=== PATIENT | female | born 1935 | race Caucasian/White ===

== ENCOUNTER 2016-04-06 08:45 | Inpatient (IN) | payer MEDICARE ==
--- NOTE | 2016-04-28 20:43 | HP ---
PREOPERATIVE HISTORY AND PHYSICAL: DATE OF ADMISSION/SURGERY: 05/04/16 DATE OF OFFICE VISIT: 04/28/16 ATTENDING SURGEON: Dr. Carla Workman. PROCEDURE: Right total shoulder reverse. CHIEF COMPLAINT: Right shoulder pain. HISTORY OF PRESENT ILLNESS: Ms. Kahn is a 80-year-old female who presents to the clinic for followup of ongoing right shoulder pain due to severe osteoarthritis. She rates her pain as a 5/10. She has failed conservative measures and therefore has agreed to undergo a right total shoulder reverse with Dr. Workman on 05/04/16. The patient had abnormal EKGs, so was sent to Cardio. She has been cleared by Cardiology. She now takes Eliquis for anticoagulation. She has also been cleared by her primary care physician. PAST MEDICAL HISTORY: Atrial tachycardia, high blood pressure, diabetes, GERD, high cholesterol, rheumatoid arthritis, osteoporosis, history of pancreatitis, stroke in 2013. PAST SURGICAL HISTORY: Carotid endarterectomy bilaterally; cholecystectomy; knee replacement; ORIF, left arm. MEDICATIONS: 1. Eliquis 5 mg twice a day. 2. D3 Super Strength 2000 units 1 cap by mouth daily. 3. Simponi Aria 50 mg/4 mL IV infusion, 2 mg/kg week 0 and 4 and continue at 8 weeks thereafter. 4. Gabapentin 100 mg, take 1 capsule by mouth at night 1 week and then 1 by mouth twice daily ongoing. 5. Ambien 5 mg 1 by mouth every night as needed. 6. Aspirin low dose 81 mg daily. 7. Metoprolol succinate 50 mg twice a day. 8. Metformin 500 mg 3 times a day. 9. Percocet 5/325 one at night. 10. Protonix 40 mg 1 daily. 11. Ropinirole HCl 2 mg 1 at night. 12. Amlodipine besylate 10 mg by mouth daily. 13. Folic acid 1 mg 1 by mouth every day. 14. Lisinopril and hydrochlorothiazide 20/25 one by mouth daily. 15. Simvastatin 40 mg 1 by mouth every night a bedtime. 16. Triamterene and hydrochlorothiazide 37.5/25 mg 1 by mouth daily. ALLERGIES: AUGMENTIN, AMOXICILLIN, CONTRAST IODINATED AGENTS, AMENTIA. She has no allergy to oxycodone even though it is listed in the chart. FAMILY HISTORY: Significant for heart disease, diabetes in maternal grandmother , hypertension as well as cancer. SOCIAL HISTORY: She lives with her daughter who is basically her primary ambulatory care coordinator; however, she works also. 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 She denies tobacco or alcohol use. REVIEW OF SYSTEMS: A 14-point review of systems was reviewed with the patient and positive for cough, intermittent diarrhea, and right shoulder pain, otherwise negative. She denies chest pain, shortness of breath, fever, chills, history of DVT or PE. PHYSICAL EXAMINATION GENERAL: Well-developed, well-nourished, 80-year-old female in no acute distress. Alert and oriented x3. Appropriate mood and affect. VITAL SIGNS: Height 61, weight 154 pounds, pulse 96, blood pressure 115/58, respiratory rate 16, BMI 29.1. HEENT: Normocephalic, atraumatic. PERRLA. Throat clear. NECK: Supple. PULMONARY: Lungs are clear to auscultation bilaterally. No wheezing, rhonchi, or rales. CARDIO: Regular rate and rhythm. S1, S2. No murmurs, rubs, or gallops. No edema. ABDOMEN: Positive bowel sounds, soft, and nontender. NEURO: Alert and oriented x3. Cranial nerves are grossly intact. Sensation is intact to light touch. MUSCULOSKELETAL: Right upper extremity, skin is intact. No erythema or warmth. Forward flexion to 80 degrees, abduction to 40 degrees, external rotation to 20 degrees, internal rotation to the posterior hip. Pain with range of motion. Significant weakness to rotator cuff testing with pain. Full flexion and extension of the elbow, wrist, and hand. +2 radial pulses. Sensation is intact to light touch distally. DIAGNOSTIC STUDIES: Multiple view x-rays of the right shoulder reveal evidence of significant osteoarthritis. IMPRESSION: Right shoulder severe osteoarthritis. ASSESSMENT AND PLAN: The patient is scheduled to undergo a right total shoulder reverse with Dr. Workman on 05/04/16. She knows to stop her aspirin 1 week before surgery and her Eliquis 48 hours prior to surgery. Her Eliquis will be restarted postoperatively for anticoagulation per Cardio recommendations. She will return to the clinic 10 to 14 days postop for followup and suture removal. Percocet will be used for postoperative pain management. OLIVIA NETTLES, FATEMEH [id number]/[facility] #: [id number] [facility] CENTERZulma
[2016-05-04] MEDS ORDERED: Buffered Lidocaine 1% SYRIN* 3 ML/SYR SYRINGE INTRADERM ONE (06:00)
[2016-05-06] MEDS ORDERED: Dexamethasone IV* 4 MG/ML 1 ML (4 MG) IV SLOW PU ONE (06:00)
[2016-05-06] MEDS ORDERED: Buffered Lidocaine 1% SYRIN* 3 ML/SYR SYRINGE INTRADERM ONE (06:00)
[2016-05-06] MEDS ORDERED: Famotidine IV* 10 MG/ML 2 ML (20 mg) IV ONE (06:00)
[2016-05-06] MEDS ORDERED: Famotidine IV* 10 MG/ML 2 ML (20 mg) ONE (07:18)
[2016-05-06] MEDS ORDERED: Clindamycin 900 MG IVPREMIX(* 900 MG/50 ML SDV IV ONE (07:18)
[2016-05-06] MEDS ORDERED: Dexamethasone IV* 4 MG/ML 1 ML (4 MG) ONE (07:18)
[2016-05-06 07:28] LABS: Urine Bacteria Absent (Absent); Urine Bilirubin Negative (Negative); Urine Glucose Negative (Negative); Urine Nitrite Negative (Negative)
[2016-05-06] MEDS ORDERED: HYDROmorphone* 1 MG/ML 1 ML SYR ONE ×4 (07:47→10:32)
[2016-05-06] MEDS ORDERED: fentaNYL* 50 MCG/ML 2 ML VIAL (100 MCG VIAL) ONE ×3 (07:47→10:32)
[2016-05-06] MEDS ORDERED: Midazolam* 1 MG/ML 5 ML VIAL (5 MG) ONE (07:48)
[2016-05-06] MEDS ORDERED: Bupivacaine 0.5% W/EPI SDV* 30 ML VIAL ONE (07:50)
[2016-05-06] MEDS ORDERED: Ondansetron INJ* 2 MG/ML VIAL ONE (07:50)
[2016-05-06] MEDS ORDERED: Propofol* 10 MG/ML 20 ML BTL IV PUSH ONE (07:50)
[2016-05-06] MEDS ORDERED: Ketorolac INJ* 30 MG/ML 1 ML VIAL ONE (07:50)
[2016-05-06] MEDS ORDERED: Lidocaine 2% PF* 5 ML VIAL ONE (07:50)
[2016-05-06] MEDS ORDERED: oxyCODONE TAB* 5 MG TAB PO PRN (11:51)
[2016-05-06] MEDS ORDERED: Magnesium Hydroxide LIQ* 30 ML UDC PO PRN (11:51)
[2016-05-06] MEDS ORDERED: diPHENhydraMINE IV* 50 MG/ML 1 ml VIAL (BENADRYL) IV PRN (11:51)
[2016-05-06] MEDS ORDERED: oxyCODONE/Acetamin 5/325 MG* TAB PO PRN ×2 (11:51)
[2016-05-06] MEDS ORDERED: Acetaminophen TAB* 325 MG PO PRN (11:51)
[2016-05-06] MEDS ORDERED: Morphine INJ* 2 MG/ML 1 ML SYRINGE IV PRN (11:51)
[2016-05-06] MEDS ORDERED: Ondansetron INJ* 2 MG/ML VIAL IV PRN ×2 (11:51→11:53)
[2016-05-06] MEDS ORDERED: PROCHLORPERAZINE INJ 5 MG/ML 2 ML VIAL IV PRN (11:53)
[2016-05-06] MEDS ORDERED: DiMENhydriNATE IV* 50 MG/ML VIAL IV PUSH PRN (11:53)
[2016-05-06] MEDS ORDERED: fentaNYL* 50 MCG/ML 2 ML VIAL (100 MCG VIAL) IV PRN (11:53)
[2016-05-06] MEDS ORDERED: HYDROmorphone* 1 MG/ML 1 ML SYR IV PRN (11:53)
[2016-05-06] MEDS ORDERED: GOLIMUMAB 50 MG IV SCH (12:15)
[2016-05-06] MEDS ORDERED: Dextrose 50% Syringe 50 ML* 25 GM/50 ML SYRINGE IV PUSH PRN (12:44)
[2016-05-06] MEDS ORDERED: Methotrexate TAB* 2.5 MG PO SCH (13:00)
--- NOTE | 2016-05-06 13:12 | RAD ---
INDICATION: Status post right shoulder replacement surgery. COMPARISON: Comparison is made with a prior x-ray study of the right shoulder from February 17, 2016. TECHNIQUE: 3 views of the right shoulder were obtained. FINDINGS: The patient is status post total right shoulder replacement surgery with a reversed polarity prosthesis. The bones and prostheses are in normal alignment. There is a small amount of air in the adjacent soft tissues consistent with the patient's recent surgery. There is a surgical drain present. IMPRESSION: STATUS POST TOTAL RIGHT SHOULDER REPLACEMENT SURGERY.
[2016-05-06] MEDS ORDERED: metFORMIN* 500 MG TAB PO SCH (14:00)
[2016-05-06] MEDS: Clindamycin 600 MG IVPREMIX(* 600 MG/50 ML SDV IV SCH ×2 (16:38→23:37)
--- NOTE | 2016-05-06 16:50 | CONS ---
[facility] MEDICINE CONSULTATION REPORT: DATE OF CONSULTATION: 05/06/16 ATTENDING PHYSICIAN: Dr. Workman. CONSULTING PHYSICIAN: Mehran Butler MD (dictation provided by Devi Li NP ). REASON FOR CONSULTATION: Medical comanagement, admitted for right total shoulder reverse. HISTORY OF PRESENT ILLNESS: Ms. Kahn is a 80-year-old female with a past medical history of hypertension, hyperlipidemia, rheumatoid arthritis, CVA, carotid endarterectomy and recent concern for atrial tachycardia who presents today to the hospital for an elective right total shoulder reverse. In brief, Ms. Kahn had failed conservative management and treatment of her shoulder pain and therefore, has opted for surgery today. Prior to going to surgery, Ms. Kahn was evaluated by Dr. Bhardwaj who was concerned that perhaps she had an atrial flutter or tachycardia and had her evaluated preoperatively by Dr. Arreguin from [facility]iology at [place]. Dr. Arreguin did administer adenosine to the patient and based on the fact that patient seemed to slow down to a sinus rhythm, he suspected that she did not have atrial flutter. She was put on Eliquis out of concern for this rhythm and at stroke risk. According to the patient today, she was taken off Eliquis presumably because Dr. Arreguin had determined and felt comfortable that she was not actually in atrial tachycardia. I do not have a note to corroborate this in the chart, however. Other than this, Ms. Kahn states that she has been feeling well and had no acute complaints prior to coming in for surgery. PAST MEDICAL HISTORY: 1. Atrial tachycardia, appears that atrial flutter was ruled out. 2. Hypertension. 3. Type 2 diabetes, non-insulin dependent. 4. GERD. 5. Hyperlipidemia. 6. Rheumatoid arthritis. 7. Osteoarthritis. 8. History of CVA. 9. History of carotid endarterectomy. 10. History of pancreatitis. 11. History of cholecystectomy. 12. History of knee replacement. 13. ORIF, left arm. MEDICATIONS: 1. Eliquis 5 mg p.o. twice daily (the patient tells me today that this had been discontinued). 2. Vitamin D3, 2000 units daily. 3. Simponi Aria 50 mg/4 mL IV infusion as directed. 4. Gabapentin 100 mg twice daily. 5. Ambien 5 mg q.p.m. as needed. 6. Aspirin 81 mg daily. 7. Metoprolol succinate 50 mg twice a day. 8. Metformin 500 mg t.i.d. 9. Percocet 5/325 mg 1 tablet at night. 10. Protonix 40 mg p.o. daily. 11. Ropinirole 2 mg at bedtime. 12. Amlodipine 10 mg daily. 13. Folic acid 1 mg daily. 14. Lisinopril and hydrochlorothiazide 20/25 daily. 15. Simvastatin 40 mg at nighttime. 16. Triamterene/hydrochlorothiazide 37.5/25 mg 1 tab daily. 17. Methotrexate 2.5 mg p.o. weekly. ALLERGIES: To AUGMENTIN, CONTRAST IODINATED AGENTS, and OCYCODONE. FAMILY HISTORY: Significant for heart disease and diabetes in maternal grandmother, hypertension, as well as cancer. SOCIAL HISTORY: The patient lives with her daughter and states that she would be her healthcare proxy. There is no report of alcohol, tobacco, or drug use. REVIEW OF SYSTEMS: A 14-point review of systems was completed with Ms. Kahn. Again, all those not mentioned above were negative. PHYSICAL EXAMINATION: Vital Signs: Temperature 97.2, pulse rate 65, respiratory rate 16, O2 saturation 99% on 3 L nasal cannula, blood pressure 133/ 72. General: Ms. Kahn is examined in the PACU. She is in no acute distress. Neuro: She is alert. She is oriented x3. She moves all extremities equally. There is no facial asymmetry or focal weakness. Extraocular movements are intact. Heart: S1, S2. No murmur, rub, gallop, and regular. Lungs are clear to auscultation bilaterally with no accessory muscle use and good aeration. Abdomen: Soft, nontender. Bowel sounds positive x4. Extremities: No cyanosis or edema. Skin is intact. DIAGNOSTIC STUDIES/LAB DATA: Preoperatively, on 04/28/16, WBC 7.8, hemoglobin 10.7, hematocrit 32, and platelet count 263. Chemistries show sodium 129, potassium 4.8, chloride 100, serum bicarbonate 25, BUN 32, creatinine 1.15, glucose 98. ASSESSMENT: Ms. Kahn is a 80-year-old female with past medical history of atrial tachycardia, hypertension, hyperlipidemia, and rheumatoid arthritis, as well as carotid endarterectomy and cerebrovascular accident, who presents today to the hospital after plan for right total shoulder reverse. Hospital Medicine has been consulted regarding medical comanagement. Our plan is as follows: 1. Postop day 0, status post right total shoulder reverse. Management will be per Dr. Workman. The patient will have pain medications p.r.n. with a bowel regimen. She will be on physical and occupational therapy. Her H and H will be monitored. 2. Type 2 diabetes. Plan to hold metformin. The patient will have blood glucoses q. meal with lispro sliding scale insulin. The patient is on a consistent carbohydrate diet. 3. Hypertension. The patient is on lisinopril/hydrochlorothiazide, also triamterene/hydrochlorothiazide and amlodipine at home as well as metoprolol. My plan is to hold the lisinopril/hydrochlorothiazide and triamterene/ hydrochlorothiazide until we can verify that the patient's blood pressure is stable and that she is well hydrated out of concern for acute kidney injury. We will continue her metoprolol and amlodipine. 4. DVT prophylaxis with heparin subcu. 6. Code status is full code. TIME SPENT: Approximately 60 minutes were spent on the consultation of this patient, more than half the time was spent with her at the bedside, reviewing the events leading up to this hospitalization, performing the physical examination, and reviewing [place] [id number]/[facility] #: [id number] JONES
[2016-05-06] MEDS ORDERED: Atorvastatin* 20 MG TAB PO SCH (18:00)
[2016-05-06] MEDS: Insulin LISPRO* 1 UNITS UNIT SUBCUT SCH (18:03)
[2016-05-06] MEDS: Gabapentin CAP(*) 100 MG PO SCH (20:12)
[2016-05-06] MEDS: Metoprolol Tartrate TAB* 50 mg PO SCH (20:13)
[2016-05-06] MEDS ORDERED: Benzocaine/Menthol LOZ* 1 LOZENGE PO PRN (20:21)
--- NOTE | 2016-05-07 05:50 | OP ---
CC: PCP OPERATIVE REPORT: DATE OF OPERATION: 05/06/16 DATE OF : 39 ATTENDING SURGEON: Carla Workman MD ASSISTANTS: 1. FATEMEH Saldaña 2. FATEMEH Ribeiro student ANESTHESIOLOGIST: Felix Travis MD ANESTHESIA: General interscalene block. PRE-OP DIAGNOSIS: Right shoulder rotator cuff arthropathy. POST-OP DIAGNOSIS: Right shoulder rotator cuff arthropathy. OPERATIVE PROCEDURE: Right shoulder open biceps tenodesis and reverse shoulder arthroplasty. ESTIMATED BLOOD LOSS: 200 cc. COMPLICATIONS: None. OUTPUTS AND DRAINS: x1. IMPLANTS: Aequalis Ascend Flex size 4B stem with a centered reversed tray and a 6- mm insert, Aequalis Reversed II centered glenosphere 36 mm with a 25 x 30 mm threaded base plate and the appropriate length screws. INDICATIONS: Romina Kahn is a 80-year-old female who has had persistent shoulder pain for several months. She has failed conservative management. 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 She had persistent pain and significant disability. After extensive discussion discussing risks and benefits of a few operative and nonoperative treatments, she has elected to proceed with operative treatment. After obtaining the appropriate clearance, she was medically optimized for surgery. Risks and benefits were discussed at length including, but are not limited to bleeding, infection, damage to nerves, vessels, surrounding structures, wound nonhealing, persistent pain, need for further surgery, fracture, failure, dislocation, persistent pain, incomplete relief of symptoms, risk of anesthesia, and risk of DVT. She has elected to proceed. DESCRIPTION OF PROCEDURE: The patient was greeted in the preoperative area by the attending surgeon. The correct extremity was marked, consent was confirmed. The patient then underwent interscalene block in the preoperative area, which she tolerated without difficulty. The patient was then brought back to the operating suite, where she was placed in the supine position on the operating table. She then underwent general anesthesia with LMA intubation after which, a Weller catheter was placed. She was then positioned in the lazy beach chair position. The right arm was then prepped and draped in the usual sterile fashion with chlorhexidine soap and alcohol wipe and a final prep with ChloraPrep. After appropriate surgical pause indicating site, side, procedure, and administration of antibiotics, the deltopectoral incision was made sharply with a 15 blade. The soft tissues were carefully dissected to expose the deltopectoral interval and the cephalic vein. The vein in the deltoid was taken laterally. The pec was retracted medially. This exposed the anterior aspect of the shoulder, which had abundant bursa that was present. The bursa was removed from the anterior aspect of the shoulder because the head was superiorly migrated, the pec was easily identified. The proximal 1 cm was released with electrocautery device. The biceps was then tenodesed with a heavy nonabsorbable suture. The biceps was then sharply tenotomized proximal to that. This was tracked proximally into the joint and excess bursa was removed. As this was done, the three sisters, the circumflex humeral artery and veins were identified and suture ligated with a 2-0 Vicryl and then electrocautery. The anterior aspect of the subscap was identified and the borders were identified. The subscap was then peeled back and released in its entirety and stay suture was placed to help with traction and the shoulder was dislocated. There was an obvious massive full-thickness tear of the supraspinatus tendon. The posterior cuff was still intact. There were grade 3 to 4 changes of the humeral head and a large inferior spur that was identified. As the head was mobilized, the latissimus insertion was identified and osteotome was used to remove the large inferior spur and to help develop the neck. Once the head was completely delivered through the wound, the cuff was outlined and then made with the sagittal saw. This was found to be a good cut. It was free-handed. The bone quality was quite poor. The excess bone and debris were removed. Any remaining osteophyte was then carefully removed. The canal was then found with the canal finder. The sounding devices were used to sound for size 4. The broaches were placed beginning with the starting broach and then carefully increased in 6 sessions. This was all set with about 20 degrees of retroversion. The final broach was found to be about 4B, which had excellent purchase. At this point, this was co-planed to allow for any unleveled bony surfaces. After this was done, the protection plate was placed and the attention was directed to the glenoid. The posterior retractor and the Hohmann were in place. This exposed the glenoid , which had grade 4 changes and osteophytes superiorly, anteriorly, and inferiorly. The subscap was attempted to mobilize by sequentially cutting through the superior glenohumeral, the middle glenohumeral ligament. The inferior glenohumeral ligament was excised with great care to protect the vessels and to stay on the undersurface of the subscapularis. This allowed for mobilization of the cuff. Once this was done, the subscap was tucked back into the subscap fossa and a neck retractor was used to expose the glenoid fully. The biceps stump, superior labrum, anterior labrum were then incised using the Bovie to about the 5 o'clock position. At this point, the Bovie was changed to a needle-tip Bovie and with great care and gentle traction on the inferior soft tissues, using a Ahuja, the 5 o'clock to 7 o'clock position was then carefully exposed again sticking onto the bone and with gentle retraction of the soft tissues to prevent any nerve injury. Once the entire glenoid was exposed, the drill guide was then placed with 0 offset. It was drilled with good purchase through the bone. This was then reamed over with 25 mm reamer and then hand reamed to 36 mm. The care was taken not to take away too much bone. At this point, the size 8 mm cannulated drill bit was used to drill, then the size 6.5 mm drill bit was used. The depth was found to be about 25 mm and therefore, a size 30-mm base plate was chosen. The screw hole was tapped and then the glenoid base plate was screwed in position with excellent purchase. The 4 interlocking screws were then drilled and filled at the appropriate length. After this was complete, the glenosphere was brought to the table and impacted into position and then the set screw was used to reinforce and lock it in. Once this was complete, attention was directed to the humerus again. The humerus was then delivered again through the wound. Appropriate retractors were placed. The protection plate was removed and the stem was checked. It was found to be somewhat loose; therefore, the stem was removed. A size 3 and then a size 4 were then impacted again into position with excellent purchase. This was co- planed once more and the trialed tray and poly were then positioned and the shoulder was then reduced. This allowed for appropriate amount of shuck, good range of motion, forward flexion about 150, external rotation to about 60 degrees, and abduction to about 90 degrees with appropriate tension on the deltoid as well as the subscap. The implants were chosen. The shoulder was gently dislocated again. The implants were removed en kristian and then prepared on the back table by the attending surgeon. Three drill holes were made into the humerus to allow for the subscap repair. #5 Ethibond sutures were placed through each superior middle and inferior. The final components were chosen and impacted and prepared by the attending surgeon. This was then brought back to the wound and impacted into position with good fit. The shoulder was then reduced and taken through range of motion , which was the same. The wound was copiously irrigated with sterile saline. Then, the #5 Ethibond sutures that were previously passed were passed through the subscapularis for closure and tied down with a secure fit. The wound was irrigated again. At this point, a large Hemovac drain was then placed. The wound was irrigated yet again and the deltopectoral interval was closed with #2 Ti-Cron suture for later identification in case she needs another surgery and the the skin was closed in layers with 2-0 Vicryl and 3-0 Monocryl. Sterile dressings were applied. She was placed in a regular sling along with a Cryo/ Cuff. She was awoken from anesthesia and transferred to the PACU in stable condition. POSTOPERATIVE PLAN: She will be nonweightbearing. She will have no active range of motion of the shoulder for 6 weeks. She will be allowed to work on active elbow, hand, and wrist range of motion as well as pendulum. She will be allowed to start passive physical therapy tomorrow with passive range of motion , forward flexion at 90, abduction at 90, external rotation to about 45 degrees. The drain will be pulled on postop day 1. She will likely be discharged tomorrow on postop day 1 after obtaining 24 hours of antibiotics. She will be on DVT prophylaxis while inhouse, but discharged on none. She will be discharged on pain medication. I will see the patient back in 10 to 14 days. [id number]/[facility] #: [id number] JONES
[2016-05-07 07:05] LABS: Hematocrit 28 % (35-47); Hemoglobin 9.5 g/dl (12.0-16.0)
[2016-05-07 07:20] LABS: BUN/Creatinine Ratio 22.7 (8-20); Calcium 8.9 mg/dL (8.6-10.3); EGFR African American 61.8 (>60); Potassium 4.3 mmol/L (3.5-5.0)
[2016-05-07 07:53] VITALS: BP 139/72
[2016-05-07] MEDS ORDERED: Enoxaparin(*) 30 MG/0.3 ML SYR SUBCUT SCH (08:00)
[2016-05-07] MEDS: Metoprolol Tartrate TAB* 50 mg PO SCH (08:06)
[2016-05-07] MEDS: Clindamycin 600 MG IVPREMIX(* 600 MG/50 ML SDV IV SCH (08:07)
[2016-05-07] MEDS: Gabapentin CAP(*) 100 MG PO SCH (08:07)
[2016-05-07] MEDS: Insulin LISPRO* 1 UNITS UNIT SUBCUT SCH (08:59)
[2016-05-07] MEDS ORDERED: Omeprazole CAP* 20 MG PO SCH (09:00)
[2016-05-07] MEDS ORDERED: Triamterene/HCTZ 37.5-25 MG* CAP PO SCH (09:00)
[2016-05-07] MEDS ORDERED: Lisinopril/HCTZ 20/25(NF) TAB PO SCH (09:00)
[2016-05-07] MEDS ORDERED: amLODIPine TAB* 5 MG PO SCH (09:00)
--- NOTE | 2016-05-07 11:28 | PN ---
Progress Note - Progress Note SOAP: Subjective: [Pt was seen this morning sitting up in bed. She states she is ready to go home. Pt states that pain is manageable. She denies any numbness or tingling of right extremity. ] Objective: [General: Pt is alert, awake and oriented. No acute distress. MSK: RUE> Pt has some slight redness around the incision. Incision is covered with steri strips. Gauze and tegaderm was replaced today. Drain was pulled today. Radial pulse is 2+ in affected arm. ] Vital Signs Temp 97.7 F 05/07/16 07:16 Pulse 107 05/07/16 07:16 Resp 18 05/07/16 10:07 BP 139/72 05/07/16 07:16 Pulse Ox 99 05/07/16 09:53 Intake & Output 05/06/16 05/07/16 05/07/16 18:59 06:59 18:59 Intake Total 3875 1756 120 Output Total 450 1150 15 Balance 3425 606 105 Weight 160 lb Intake: IV Fluids 2650 966 CLINDAMYCIN 900 MG 50 LR 966 lr 2600 IVPB 55 Clindamycin 55 Oral 1170 790 120 Output: Hemovac Amount #1 100 15 Urine 200 Weller 150 950 Estimated Blood Loss 200 Other: Estimated Void Medium # Voids 1 Assessment: [S/P R total reverse shoulder arthroplasty ] Plan: [Pt will be discharged today Pt will continue oxycodone at home Pt will continue plavix starting tomorrow morning Pt will continue exercises Pt will follow up in 10 to 14 days to have sutures removed.
== END 2016-05-07 12:00 | disposition home or self-care (01) | DRG 483 ==
LOC: AA 05-06 07:08 → SSU 05-06 11:51
PROVIDERS: ADMIT Orthopaedic Surgery; ATTEND Orthopaedic Surgery
PROC: 0RRJ00Z Replacement of Right Shoulder Joint with Reverse Ball and Socket Synthetic Substitute, Open Approach (ICD-10-PCS; principal; 2016-05-06 08:45)
DX: M19.011 Primary osteoarthritis, right shoulder (principal); I44.7 Left bundle-branch block, unspecified; E11.9 Type 2 diabetes mellitus without complications; I10 Essential (primary) hypertension; M06.9 Rheumatoid arthritis, unspecified; K21.9 Gastro-esophageal reflux disease without esophagitis; Z79.84 Long term (current) use of oral hypoglycemic drugs; Z79.82 Long term (current) use of aspirin; Z88.5 Allergy status to narcotic agent; Z88.0 Allergy status to penicillin; Z91.041 Radiographic dye allergy status; Z82.49 Family history of ischemic heart disease and other diseases of the circulatory system; Z83.3 Family history of diabetes mellitus; Z86.73 Personal history of transient ischemic attack (TIA), and cerebral infarction without residual deficits; Z79.02 Long term (current) use of antithrombotics/antiplatelets; Z79.01 Long term (current) use of anticoagulants
CPT/HCPCS: 36415; 80048; 81003; 81015; 85014; 85018; 87070; 87073; 87077; 87086; 87205; 94760; A9270-GY; J1100; J1170; J1650; J1885; J2250; J2405; J2704; J3010

== ENCOUNTER 2017-06-20 04:35 | Inpatient (IN) | payer MEDICARE ==
[2017-06-20] MEDS ORDERED: Adenosine* 3 MG/ML VIAL ONE (04:40)
[2017-06-20] MEDS ORDERED: methylPREDNISolone 125 MG* 2 ML VIAL IV ONE ×2 (04:43→10:24)
[2017-06-20] MEDS ORDERED: Albuterol/Ipratropium NEB.SOL* Albuterol 2.5 MG/Ipratropium 0.5 MG 3 ML INH ONE (04:43)
[2017-06-20] MEDS ORDERED: Diltiazem DRIP* 100 MG/100 ML ADDV.BAG IVPB ONE (04:45)
[2017-06-20] MEDS: Diltiazem IV* 5 MG/ML 5 ML VIAL (for loading dose/IV Push) (25 MG) IV PUSH ONE ×2 (04:55→05:27)
[2017-06-20] MEDS ORDERED: Furosemide IV* 10 MG/ML VIAL (40 MG) IV ONE ×2 (05:21→06:41)
--- OUTSIDE RECORDS SUMMARY | 2017-06-20 05:34 | XMS REPORT ---
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 Active Onset: 07/21/2015 Carpal tunnel syndrome Jody Godoy M.D. 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 Family History Date Family Member(s) Problem(s) Comments General Heart Disease General Diabetes General Cancer Mother grand mother had arthritis Social History Type Date Description Comments Lives With Daughter Occupation Retired ETOH Use Denies alcohol use Smoking Patient has never smoked Exercise Type/Frequency Does not exercise Allergies, Adverse Reactions, Alerts Date Description Reaction Status Severity Comments 12/23/2013 Oxycodone active 04/20/2015 Augmentin active 04/20/2015 Amoxicillin active 04/20/2015 Contrast Iodianted Agents active 04/20/2015 Amentia active 06/30/2016 Remicade active hives Medications Medication Date Status Form Strength Qnty SIG Indications Ordering Provider Prolia Active Solution 60mg/ml 60mg 60 mg M81.0 Zsofia 018 sc Kuldip, q6mon HOME AGENT Iron Active Tablets 325(65Fe) 90tabs 1 by Zsofia 017 mg mouth Kuldip, every HOME AGENT day Vitamin D3 Active Capsules 5000Unit 90caps 1 by Zsofia Ultra Strength 017 mouth Kuldip, every HOME AGENT day Methotrexate Active Tablets 2.5mg 60tabs 5 tbs M05.79 Zsofia 017 by Kuldip, mouth HOME AGENT every week Z79.899 Folic Acid 07/15/2016 Active Tablets 1mg 90tabs 1 by mouth Z79.899 Zsofia every day Kuldip, HOME AGENT Calcium 500 +D 07/15/2016 Active Tablets 500-400mg 180tabs 1 by mouth M81.0 Zsofia -Unit twice a Kuldip, day HOME AGENT Ambien Active 5mg 1 po qhs Unknown prn Aspirin Ec Active 81mg Unknown Lo-Dose Metoprolol Active 50mg bid Unknown Succinate ER Metformin HCL Active 500mg once tab Unknown daily Protonix Active 40mg 1/day Unknown Ropinirole HCL Active 2mg 1 at hs Unknown Amlodipine Active 10mg qd Unknown Besylate Simvastatin Active Tablets 40mg 1 by mouth Unknown every night at bedtime Triamterene/Hy Active Tablets 37.5-25mg 1 by mouth Unknown drochlorothiaz every day annika Vitamin D-3 Active Capsules Unknown 1 by mouth Unknown every day OTC Lisinopril-Hyd Active Tablets 20-25mg 1 by mouth Unknown rochlorothiazi every day de Cipro 02/24/2017 - Hx Tablets 250mg 10tabs 1 tab po R30.0 Zsofia 06/09/2017 twice Kuldip, daily for HOME AGENT 5 days. May stop after 3 days if symptoms resolved. Pyridium 02/24/2017 - Hx Tablets 200mg 1tabs 1 as R30.0 Zsofia 02/24/2017 needed Kuldip, every 6 HOME AGENT hours Bactrim DS 02/24/2017 - Hx 800-160mg 6units 1 tab po R30.0 Zsofia 02/24/2017 bid Kuldip, HOME AGENT Macrodantin 02/24/2017 - Hx Capsules 25mg 10caps 1 po qid R30.0 Zsofia 02/24/2017 Kuldip, HOME AGENT Vitamin D3 08/15/2016 - Hx Capsules 5000Unit 90caps 1 by mouth Zsofia Ultra Strength 11/17/2016 every day Kuldip, HOME AGENT Methotrexate 07/15/2016 - Hx Tablets 2.5mg 72tabs 6 tbs by M05.79 Zsofia 08/12/2016 mouth Kuldip, every week HOME AGENT Z79.899 Oxycodone HCL 05/07/2016 - Hx Capsules 5mg 60caps take 1 - 2 Zaneb 05/28/2016 every 4 - 6 MD Jacinta hours as needed for pain. D3 Super 03/02/2016 - Hx Capsules 2000Uni 90caps take one Marvin Strength 11/17/2016 t capsule/tablet Marky, daily by mouth M.D. Celebrex 02/17/2016 - Hx Capsules 100mg 60caps 1 tab by mouth M19. Adriel F 03/02/2016 twice a day as 011 MD Krystal needed Remicade 01/06/2016 - Hx Solution Rec 100mg Marvin 02/16/2016 Cuca Negro Simponi Aria 07/24/2015 - Hx Solution 50mg/4M QS iv infusion: 2 M05. Zsofia 07/15/2016 L mg/kg repeat 79 KEILA Christiansen at weeks 0 and 4 weeks and continue every 8 weeks thereafter On Hold Z79.899 Gabapentin 05/15/2015 - Hx Capsules 100mg 60caps take 1 Marvin 06/09/2017 capsule by Marky, mouth at M.D. night for 1 week then 1 by mouth twice daily ongoing Prednisone 05/05/2015 - Hx Tablets 10mg 90tabs Please take 05/20/2015 4 tabs Marky, daily for 4 M.D. days then 3 tabs daily for 4 days then 2 tabs daily for 4 days then 1 tab daily ongoing Nabumetone 04/29/2015 - Hx Tablets 500mg 30tabs take one 05/05/2015 capsule/tab Marky, let by M.D. mouth twice daily as needed for pain, please stop other nsaids Ergocalciferol 04/27/2015 - Hx Capsules [id number] 14caps take 1 01/06/2016 capsule by Marky, mouth once M.D. weekly Tramadol HCL 02/03/2014 - Hx Tablets 50mg 50tabs 1 by mouth Chester Rainey , 02/16/2016 four times M.D. a day as [place] [address] Unknown 04/16/2014 Metanx - Hx 1/day Unknown 01/06/2016 Percocet - Hx 5-325 1 at hs Unknown 05/28/2016 Zocor - Hx 20mg 1/day Unknown 04/20/2015 Lisinopril - Hx 25 1/day Unknown 02/16/2016 Vitamin B 12 - Hx 2500 Unknown 03/02/2016 units/day Vitamin D-1000 - Hx Unknown Maximum Strength 04/20/2015 Folic Acid - Hx Tablets 1mg 90tabs 1 by mouth 08/12/2016 every day Cuca Negro Lisinopril-Hydrochl - Hx Tablets 20-25mg 1 by mouth Unknown orothiazide 09/28/2016 every day Methotrexate - Hx Tablets 2.5mg 60tabs take 5 03/02/2016 capsules/ta Marky blets once M.D. weekly by mouth Prednisone - Hx Tablets 20mg 20mg daily Unknown 05/05/2015 Vitamin D3 - Hx Tablets 2000Unit 1 by mouth Unknown 03/02/2016 every day Eliquis - Hx Unknown 09/28/2016 Medications Administered in Office Medication Date Status Form Strength Qnty SIG Indications Ordering Provider David Administered Injection Zsofia Injection, 018 Kuldip, HOME AGENT Denosumab, 1MG Depomedrol Administered Injection Adriel F 40MG 016 MD Krystal Proljuve Administered Injection Marvin Injection, 016 Marky, Denosumab, 1MG MNikolas Prolia Administered Injection Nurse Visit Injection, 016 RH Denosumab, 1MG Immunizations CPT Code Status Date Vaccine Lot # [id number] Given 01/06/2016 Influenza Virus Vaccine, Quadrivalent, Split [id number] Virus, Im Use [id number] Given 10/03/2014 Pneumococcal Conjugate Vaccine 13 Valent For Intramuscular Use 21071 Given Unknown Pneumonia Vaccine Vital Signs Date Vital Result Comment 06/09/2017 Height 60.5 inches 5'0.50" BP Systolic 142 mmHg BP Diastolic 68 mmHg Pain Level 5 O2 % BldC Oximetry 98 % 02/24/2017 Height 60.5 inches 5'0.50" Weight 156.00 lb Heart Rate 60 /min BP Systolic Sitting 150 mmHg BP Diastolic Sitting 64 mmHg Respiratory Rate 14 /min Pain Level 3 BMI (Body Mass Index) 30.0 kg/m2 12/06/2016 Height 60.5 inches 5'0.50" Weight 159.00 lb BP Systolic 118 mmHg BP Diastolic 64 mmHg Respiratory Rate 16 /min Pain Level 2 BMI (Body Mass Index) 30.5 kg/m2 11/18/2016 Weight 159.25 lb Heart Rate 64 /min BP Systolic Sitting 166 mmHg BP Diastolic Sitting 64 mmHg Body Temperature 98.3 F Pain Level 0 O2 % BldC Oximetry 98 % 09/29/2016 Height 60.5 inches 5'0.50" Weight 159.00 lb Heart Rate 60 /min BP Systolic Sitting 125 mmHg BP Diastolic Sitting 75 mmHg Body Temperature 97.7 F Pain Level 0 BMI (Body Mass Index) 30.5 kg/m2 08/12/2016 Height 61 inches 5'1" Heart Rate 72 /min BP Systolic Sitting 144 mmHg BP Diastolic Sitting 90 mmHg Respiratory Rate 14 /min Pain Level 2 07/29/2016 Height 61 inches 5'1" Weight 155.00 lb Respiratory Rate 15 /min Body Temperature 98.4 F Pain Level 2 BMI (Body Mass Index) 29.3 kg/m2 07/15/2016 Height 61 inches 5'1" Weight 155.00 lb Heart Rate 100 /min BP Systolic Sitting 138 mmHg BP Diastolic Sitting 90 mmHg Respiratory Rate 14 /min Pain Level 4 BMI (Body Mass Index) 29.3 kg/m2 06/17/2016 Height 61 inches 5'1" Weight 154.00 lb BP Systolic 120 mmHg BP Diastolic 68 mmHg Respiratory Rate 17 /min Body Temperature 98.1 F Pain Level 4 BMI (Body Mass Index) 29.1 kg/m2 05/17/2016 Height 61 inches 5'1" Weight 154.00 lb Heart Rate 60 /min BP Systolic Sitting 142 mmHg BP Diastolic Sitting 82 mmHg Respiratory Rate 16 /min Body Temperature 97.3 F Pain Level 2 BMI (Body Mass Index) 29.1 kg/m2 04/28/2016 Height 61 inches 5'1" Weight 154.00 lb Heart Rate 96 /min BP Systolic 115 mmHg BP Diastolic 58 mmHg Respiratory Rate 16 /min Pain Level 5 BMI (Body Mass Index) 29.1 kg/m2 03/29/2016 Height 61 inches 5'1" Weight 154.00 lb Heart Rate 61 /min BP Systolic 146 mmHg BP Diastolic 61 mmHg Respiratory Rate 18 /min Pain Level 5 BMI (Body Mass Index) 29.1 kg/m2 03/08/2016 Height 61 inches 5'1" Weight 154.00 lb BP Systolic Sitting 114 mmHg BP Diastolic Sitting 64 mmHg Respiratory Rate 16 /min Pain Level 5 BMI (Body Mass Index) 29.1 kg/m2 03/02/2016 Height 61 inches 5'1" Weight 154.00 lb Heart Rate 78 /min BP Systolic Sitting 140 mmHg BP Diastolic Sitting 60 mmHg Body Temperature 98.0 F Pain Level 5 BMI (Body Mass Index) 29.1 kg/m2 02/17/2016 Height 61 inches 5'1" Weight 160.00 lb Heart Rate 86 /min BP Systolic Sitting 132 mmHg BP Diastolic Sitting 72 mmHg Respiratory Rate 18 /min Pain Level 5 BMI (Body Mass Index) 30.2 kg/m2 01/06/2016 Height 61 inches 5'1" Weight 160.00 lb Heart Rate 64 /min BP Systolic Sitting 110 mmHg BP Diastolic Sitting 60 mmHg Respiratory Rate 14 /min Body Temperature 97.9 F Pain Level 6 BMI (Body Mass Index) 30.2 kg/m2 10/01/2015 Height 61 inches 5'1" Weight 158.00 lb Heart Rate 60 /min BP Systolic Sitting 114 mmHg BP Diastolic Sitting 64 mmHg Respiratory Rate 14 /min Body Temperature 99.4 F Pain Level 6 BMI (Body Mass Index) 29.9 kg/m2 08/25/2015 Height 61 inches 5'1" Weight 160.00 lb Heart Rate 60 /min BP Systolic Sitting 116 mmHg BP Diastolic Sitting 48 mmHg Respiratory Rate 16 /min BMI (Body Mass Index) 30.2 kg/m2 07/28/2015 Height 61 inches 5'1" Weight 161.31 lb Heart Rate 64 /min BP Systolic Sitting 120 mmHg BP Diastolic Sitting 58 mmHg Respiratory Rate 4 /min Body Temperature 98.6 F BMI (Body Mass Index) 30.5 kg/m2 07/21/2015 Height 61 inches 5'1" Weight 160.00 lb Heart Rate 60 /min BP Systolic Sitting 126 mmHg BP Diastolic Sitting 64 mmHg Respiratory Rate 16 /min Pain Level 5 BMI (Body Mass Index) 30.2 kg/m2 05/20/2015 Height 61 inches 5'1" Weight 160.00 lb Heart Rate 76 /min BP Systolic Sitting 146 mmHg BP Diastolic Sitting 70 mmHg Pain Level 8 BMI (Body Mass Index) 30.2 kg/m2 04/20/2015 Height 61 inches 5'1" Weight 169.12 lb Heart Rate 64 /min BP Systolic Sitting 122 mmHg BP Diastolic Sitting 50 mmHg Respiratory Rate 14 /min Pain Level 5 BMI (Body Mass Index) 32.0 kg/m2 09/01/2014 Height 61 inches 5'1" Weight 165.00 lb Pain Level 3 BMI (Body Mass Index) 31.2 kg/m2 05/21/2014 Height 61 inches 5'1" Heart Rate 70 /min Body Temperature 98.2 F Pain Level 2 04/17/2014 Height 61 inches 5'1" Heart Rate 70 /min BP Systolic 177 mmHg BP Diastolic 68 mmHg 04/02/2014 Height 61 inches 5'1" Weight 165.00 lb Body Temperature 97.6 F BMI (Body Mass Index) 31.2 kg/m2 03/26/2014 Height 61 inches 5'1" Weight 165.00 lb Body Temperature 97.9 F Pain Level 4 BMI (Body Mass Index) 31.2 kg/m2 03/17/2014 Height 61 inches 5'1" Weight 162.00 lb Heart Rate 100 /min BP Systolic 150 mmHg BP Diastolic 80 mmHg BMI (Body Mass Index) 30.6 kg/m2 03/05/2014 Height 61 inches 5'1" Weight 173.00 lb BP Systolic 186 mmHg BP Diastolic 97 mmHg BMI (Body Mass Index) 32.7 kg/m2 02/03/2014 Height 61 inches 5'1" Weight 173.00 lb Heart Rate 79 /min BP Systolic 155 mmHg BP Diastolic 68 mmHg Body Temperature 97.5 F Pain Level 7 BMI (Body Mass Index) 32.7 kg/m2 01/08/2014 Height 61 inches 5'1" Weight 170.00 lb Pain Level 8 BMI (Body Mass Index) 32.1 kg/m2 12/23/2013 Height 61 inches 5'1" Weight 170.00 lb Heart Rate 65 /min BP Systolic 150 mmHg BP Diastolic 70 mmHg BMI (Body Mass Index) 32.1 kg/m2 Results Test Date Test Result H/L Range Note Urine Culture And 02/24/2017 Urine Culture SEE RESULT BELOW 1 Sensitivities Urinalysis Profile 02/24/2017 Urine Color Natalia Urine Appearance Turbid Urine Specific [place] 1.016 1.010-1.030 Urine pH 6.0 5-9 Urine Urobilinogen Negative Negative Urine Ketones Negative Negative Urine Protein 2+(100 mg/dL) Negative Urine Leukocytes 3+ Negative Urine Blood 1+ Negative Urine Nitrite Positive Negative Urine Bilirubin Negative Negative Urine Glucose Negative Negative Urine White Blood Cell 3+(>20/hpf) Absent Urine Red Blood Cell 3+(>10/hpf) Absent Urine Bacteria Absent Absent Urine Squamous Epithelial Cell Present Absent Laboratory test finding 02/17/2017 Ferritin 40.2 ng/mL 11-307 2 Vitamin D Total 25(Oh) 35.8 ng/mL 20-50 3 Iron & Iron Binding Capacity 02/17/2017 Iron 19 g/dL Low 50-212 Unsaturated Iron Binding 337 g/dL Total Iron Binding Capacity 356 g/dL 250-450 % Iron Saturation 5 % Low 15-55 Laboratory test finding 02/17/2017 Erythrocyte Sed Rate 51 mm/Hr High 0- 40 4 C Reactive Protein 35.44 mg/L High < 5.00 5 Comp Metabolic Panel 02/17/2017 Sodium 130 mmol/L Low 133-145 Potassium 4.2 mmol/L 3.5-5.0 Chloride 99 mmol/L Low 101-111 Co2 Carbon Dioxide 25 mmol/L 22-32 Anion Gap 6 mmol/L 2-11 Glucose 97 mg/dL 70-100 Blood Urea Nitrogen 35 mg/dL High 6-24 Creatinine 1.12 mg/dL High 0.51-0.95 BUN/Creatinine Ratio 31.3 High 8-20 Calcium 9.4 mg/dL 8.6-10.3 Total Protein 6.5 g/dL 6.4-8.9 Albumin 3.2 g/dL 3.2-5.2 Globulin 3.3 g/dL 2-4 Albumin/Globulin Ratio 1.0 1-3 Total Bilirubin 0.50 mg/dL 0.2-1.0 Alkaline Phosphatase 67 U/L 34-104 Alt 11 U/L 7-52 Ast 24 U/L 13-39 Egfr Non- 46.9 >60 Egfr 60.4 >60 6 CBC Auto Diff 02/17/2017 White Blood Count 5.2 10^3/uL 3.5-10.8 Red Blood Count 3.46 10^6/uL Low 4.0-5.4 Hemoglobin 10.4 g/dL Low 12.0-16.0 Hematocrit 31 % Low 35-47 Mean Corpuscular Volume 91 fL 80-97 Mean Corpuscular Hemoglobin 30 pg 27-31 Mean Corpuscular HGB Conc 33 g/dL 31-36 Red Cell Distribution Width 16 % High 10.5-15 Platelet Count 220 10^3/uL 150-450 Mean Platelet Volume 9 um3 7.4-10.4 Abs Neutrophils 2.0 10^3/uL 1.5-7.7 Abs Lymphocytes 2.4 10^3/uL 1.0-4.8 Abs Monocytes 0.7 10^3/uL 0-0.8 Abs Eosinophils 0.1 10^3/uL 0-0.6 Abs Basophils 0 10^3/uL 0-0.2 Abs Nucleated RBC 0.02 10^3/uL Granulocyte % 37.9 % Low 38-83 Lymphocyte % 46.0 % 25-47 Monocyte % 13.7 % High 1-9 Eosinophil % 1.8 % 0-6 Basophil % 0.6 % 0-2 Nucleated Red Blood Cells % 0.3 CBC Auto Diff 11/24/2016 White Blood Count 5.9 10^3/uL 3.5-10.8 Red Blood Count 3.16 10^6/uL Low 4.0-5.4 Hemoglobin 9.8 g/dL Low 12.0-16.0 Hematocrit 29 % Low 35-47 Mean Corpuscular Volume 92 fL 80-97 Mean Corpuscular Hemoglobin 31 pg 27-31 Mean Corpuscular HGB Conc 34 g/dL 31-36 Red Cell Distribution Width 17 % High 10.5-15 Platelet Count 251 10^3/uL 150-450 Mean Platelet Volume 9 um3 7.4-10.4 Abs Neutrophils 3.3 10^3/uL 1.5-7.7 Abs Lymphocytes 1.7 10^3/uL 1.0-4.8 Abs Monocytes 0.6 10^3/uL 0-0.8 Abs Eosinophils 0.2 10^3/uL 0-0.6 Abs Basophils 0 10^3/uL 0-0.2 Abs Nucleated RBC 0 10^3/uL Granulocyte % 56.5 % 38-83 Lymphocyte % 29.0 % 25-47 Monocyte % 10.9 % High 1-9 Eosinophil % 2.7 % 0-6 Basophil % 0.9 % 0-2 Nucleated Red Blood Cells % 0 Comp Metabolic Panel 11/24/2016 Sodium 133 mmol/L 133-145 Potassium 4.5 mmol/L 3.5-5.0 Chloride 102 mmol/L 101-111 Co2 Carbon Dioxide 24 mmol/L 22-32 Anion Gap 7 mmol/L 2-11 Glucose 95 mg/dL 70-100 Blood Urea Nitrogen 24 mg/dL 6-24 Creatinine 0.98 mg/dL High 0.51-0.95 BUN/Creatinine Ratio 24.5 High 8-20 Calcium 9.8 mg/dL 8.6-10.3 Total Protein 6.8 g/dL 6.4-8.9 Albumin 3.4 g/dL 3.2-5.2 Globulin 3.4 g/dL 2-4 Albumin/Globulin Ratio 1.0 1-3 Total Bilirubin 0.70 mg/dL 0.2-1.0 Alkaline Phosphatase 78 U/L 34-104 Alt 7 U/L 7-52 Ast 16 U/L 13-39 Egfr Non- 54.7 >60 Egfr 70.4 >60 7 Laboratory test finding 11/24/2016 C Reactive Protein 8.27 mg/L High < 5.00 8 Erythrocyte Sed Rate 52 mm/Hr High 0-40 Iron & Iron Binding Capacity 11/24/2016 Iron 36 g/dL Low 50-212 Unsaturated Iron Binding 353 g/dL Total Iron Binding Capacity 389 g/dL 250-450 % Iron Saturation 9 % Low 15-55 Laboratory test finding 11/24/2016 Ferritin 16.7 ng/mL 11-307 Laboratory test finding 08/12/2016 C Reactive Protein 10.51 mg/L High &lt ; 5.00 9 Erythrocyte Sed Rate 70 mm/Hr High 0-40 Vitamin D Total 25(Oh) 19.9 ng/mL Low 30-50 Comp Metabolic Panel 08/12/2016 Sodium 130 mmol/L Low 133-145 Potassium 4.5 mmol/L 3.5-5.0 Chloride 98 mmol/L Low 101-111 Co2 Carbon Dioxide 25 mmol/L 22-32 Anion Gap 7 mmol/L 2-11 Glucose 90 mg/dL 70-100 Blood Urea Nitrogen 26 mg/dL High 6-24 Creatinine 1.05 mg/dL High 0.51-0.95 BUN/Creatinine Ratio 24.8 High 8-20 Calcium 9.8 mg/dL 8.6-10.3 Total Protein 7.1 g/dL 6.4-8.9 Albumin 3.4 g/dL 3.2-5.2 Globulin 3.7 g/dL 2-4 Albumin/Globulin Ratio 0.9 Low 1-3 Total Bilirubin 0.70 mg/dL 0.2-1.0 Alkaline Phosphatase 70 U/L 34-104 Alt 9 U/L 7-52 Ast 17 U/L 13-39 Egfr Non- 50.6 >60 Egfr 65.0 >60 10 CBC Auto Diff 08/12/2016 White Blood Count 5.0 10^3/uL 3.5-10.8 Red Blood Count 3.25 10^6/uL Low 4.0-5.4 Hemoglobin 9.4 g/dL Low 12.0-16.0 Hematocrit 29 % Low 35-47 Mean Corpuscular Volume 88 fL 80-97 Mean Corpuscular Hemoglobin 29 pg 27-31 Mean Corpuscular HGB Conc 33 g/dL 31-36 Red Cell Distribution Width 15 % 10.5-15 Platelet Count 243 10^3/uL 150-450 Mean Platelet Volume 9 um3 7.4-10.4 Abs Neutrophils 2.5 10^3/uL 1.5-7.7 Abs Lymphocytes 2.0 10^3/uL 1.0-4.8 Abs Monocytes 0.4 10^3/uL 0-0.8 Abs Eosinophils 0.1 10^3/uL 0-0.6 Abs Basophils 0 10^3/uL 0-0.2 Abs Nucleated RBC 0 10^3/uL Granulocyte % 50.3 % 38-83 Lymphocyte % 39.5 % 25-47 Monocyte % 7.4 % 1-9 Eosinophil % 2.0 % 0-6 Basophil % 0.8 % 0-2 Nucleated Red Blood Cells % 0.1 Comp Metabolic Panel 06/29/2016 Sodium 128 mmol/L Low 133-145 Chloride 99 mmol/L Low 101-111 Co2 Carbon Dioxide 23 mmol/L 22-32 Glucose 114 mg/dL High 70-100 Blood Urea Nitrogen 28 mg/dL High 6-24 Creatinine 0.92 mg/dL 0.51-0.95 BUN/Creatinine Ratio 30.4 High 8-20 Calcium 10.4 mg/dL High 8.6-10.3 Total Protein 7.8 g/dL 6.4-8.9 Albumin 3.5 g/dL 3.2-5.2 Globulin 4.3 g/dL High 2-4 Albumin/Globulin Ratio 0.8 Low 1-3 Total Bilirubin 0.50 mg/dL 0.2-1.0 Alkaline Phosphatase 64 U/L 34-104 Alt 7 U/L 7-52 Egfr Non- 58.9 >60 Egfr 75.7 >60 11 Potassium 4.7 mmol/L 3.5-5.0 Anion Gap 6 mmol/L 2-11 Ast 18 U/L 13-39 Laboratory test finding 06/29/2016 C Reactive Protein 11.78 mg/L High &lt ; 5.00 12 CBC Auto Diff 06/29/2016 White Blood Count 7.5 10^3/uL 3.5-10.8 Red Blood Count 3.62 10^6/uL Low 4.0-5.4 Hemoglobin 10.5 g/dL Low 12.0-16.0 Hematocrit 32 % Low 35-47 Mean Corpuscular Volume 89 fL 80-97 Mean Corpuscular Hemoglobin 29 pg 27-31 Mean Corpuscular HGB Conc 33 g/dL 31-36 Red Cell Distribution Width 14 % 10.5-15 Platelet Count 307 10^3/uL 150-450 Mean Platelet Volume 8 um3 7.4-10.4 Abs Neutrophils 4.5 10^3/uL 1.5-7.7 Abs Lymphocytes 2.2 10^3/uL 1.0-4.8 Abs Monocytes 0.5 10^3/uL 0-0.8 Abs Eosinophils 0.1 10^3/uL 0-0.6 Abs Basophils 0.1 10^3/uL 0-0.2 Abs Nucleated RBC 0 10^3/uL Granulocyte % 60.6 % 38-83 Lymphocyte % 29.8 % 25-47 Monocyte % 7.2 % 1-9 Eosinophil % 1.1 % 0-6 Basophil % 1.3 % 0-2 Nucleated Red Blood Cells % 0 Laboratory test finding 06/29/2016 Erythrocyte Sed Rate 73 mm/Hr High 0- 40 Basic Metabolic Panel 04/28/2016 Sodium 129 mmol/L Low 133-145 Potassium 4.8 mmol/L 3.5-5.0 Chloride 100 mmol/L Low 101-111 Co2 Carbon Dioxide 25 mmol/L 22-32 Anion Gap 4 mmol/L 2-11 Glucose 98 mg/dL 70-100 Blood Urea Nitrogen 32 mg/dL High 6-24 Creatinine 1.15 mg/dL High 0.51-0.95 BUN/Creatinine Ratio 27.8 High 8-20 Calcium 9.6 mg/dL 8.6-10.3 Egfr Non- 45.6 >60 Egfr 58.7 >60 13 CBC No Diff 04/28/2016 White Blood Count 7.8 10^3/uL 3.5-10.8 Red Blood Count 3.54 10^6/uL Low 4.0-5.4 Hemoglobin 10.7 g/dL Low 12.0-16.0 Hematocrit 32 % Low 35-47 Mean Corpuscular Volume 91 fL 80-97 Mean Corpuscular Hemoglobin 30 pg 27-31 Mean Corpuscular HGB Conc 33 g/dL 31-36 Red Cell Distribution Width 13 % 10.5-15 Platelet Count 263 10^3/uL 150-450 Mean Platelet Volume 8 um3 7.4-10.4 Inr/Protime 04/28/2016 Inr 1.15 High 0.89-1.11 Laboratory test finding 04/28/2016 Partial Thrombo Time 30.1 seconds 26.0 -36.3 PTT Type & Screen 04/28/2016 Patient Blood Type O Positive Antibody Screen NEGATIVE CBC Auto Diff 03/29/2016 White Blood Count 8.2 10^3/uL 3.5-10.8 Red Blood Count 3.68 10^6/uL Low 4.0-5.4 Hemoglobin 11.2 g/dL Low 12.0-16.0 Hematocrit 34 % Low 35-47 Mean Corpuscular Volume 92 fL 80-97 Mean Corpuscular Hemoglobin 30 pg 27-31 Mean Corpuscular HGB Conc 33 g/dL 31-36 Red Cell Distribution Width 14 % 10.5-15 Platelet Count 234 10^3/uL 150-450 Mean Platelet Volume 9 um3 7.4-10.4 Abs Neutrophils 3.6 10^3/uL 1.5-7.7 Abs Lymphocytes 3.7 10^3/uL 1.0-4.8 Abs Monocytes 0.8 10^3/uL 0-0.8 Abs Eosinophils 0.1 10^3/uL 0-0.6 Abs Basophils 0.1 10^3/uL 0-0.2 Abs Nucleated RBC 0.01 10^3/uL Granulocyte % 43.5 % 38-83 Lymphocyte % 45.4 % 25-47 Monocyte % 9.3 % High 1-9 Eosinophil % 1.2 % 0-6 Basophil % 0.6 % 0-2 Nucleated Red Blood Cells % 0.1 Basic Metabolic Panel 03/29/2016 Sodium 132 mmol/L Low 133-145 Potassium 4.5 mmol/L 3.5-5.0 Chloride 101 mmol/L 101-111 Co2 Carbon Dioxide 27 mmol/L 22-32 Anion Gap 4 mmol/L 2-11 Glucose 94 mg/dL 70-100 Blood Urea Nitrogen 22 mg/dL 6-24 Creatinine 1.03 mg/dL High 0.51-0.95 BUN/Creatinine Ratio 21.4 High 8-20 Calcium 9.3 mg/dL 8.6-10.3 Egfr Non- 51.8 >60 Egfr 66.6 >60 14 Laboratory test 03/29/2016 Partial Thrombo Time 27.0 seconds 26.0-36.3 finding PTT Laboratory test 03/08/2016 Erythrocyte Sed Rate 39 mm/Hr 0-40 finding Comp Metabolic Panel 03/08/2016 Sodium 129 mmol/L Low 133-145 Chloride 103 mmol/L 101-111 Co2 Carbon Dioxide 20 mmol/L Low 22-32 Glucose 87 mg/dL 70-100 Blood Urea Nitrogen 28 mg/dL High 6-24 Creatinine 1.09 mg/dL High 0.51-0.95 BUN/Creatinine Ratio 25.7 High 8-20 Calcium 9.4 mg/dL 8.6-10.3 Total Protein 7.0 g/dL 6.4-8.9 Albumin 3.5 g/dL 3.2-5.2 Globulin 3.5 g/dL 2-4 Albumin/Globulin Ratio 1.0 1-3 Total Bilirubin 0.60 mg/dL 0.2-1.0 Alkaline Phosphatase 46 U/L 34-104 Alt 11 U/L 7-52 Egfr Non- 48.5 >60 Egfr 62.4 >60 15 Potassium TNP mmol/L 3.5-5.0 16 Anion Gap TNP mmol/L 2-11 Ast TNP U/L 13-39 17 Laboratory test finding 03/08/2016 C Reactive Protein < 1.00 mg/L &lt ; 5.00 18 Comp Metabolic Panel 02/09/2016 Sodium 132 mmol/L Low 133-145 Potassium 4.5 mmol/L 3.5-5.0 Chloride 102 mmol/L 101-111 Co2 Carbon Dioxide 25 mmol/L 22-32 Anion Gap 5 mmol/L 2-11 Glucose 97 mg/dL 70-100 Blood Urea Nitrogen 24 mg/dL 6-24 Creatinine 0.91 mg/dL 0.51-0.95 BUN/Creatinine Ratio 26.4 High 8-20 Calcium 9.1 mg/dL 8.6-10.3 Total Protein 7.3 g/dL 6.4-8.9 Albumin 3.6 g/dL 3.2-5.2 Globulin 3.7 g/dL 2-4 Albumin/Globulin Ratio 1.0 1-3 Total Bilirubin 0.70 mg/dL 0.2-1.0 Alkaline Phosphatase 56 U/L 34-104 Alt 12 U/L 7-52 Ast 18 U/L 13-39 Egfr Non- 59.8 >60 Egfr 76.9 >60 19 Laboratory test finding 02/09/2016 C Reactive Protein < 1.00 mg/L &lt ; 5.00 20 CBC Auto Diff 02/09/2016 White Blood Count 4.7 10^3/uL 3.5-10.8 Red Blood Count 3.60 10^6/uL Low 4.0-5.4 Hemoglobin 10.9 g/dL Low 12.0-16.0 Hematocrit 33 % Low 35-47 Mean Corpuscular Volume 92 fL 80-97 Mean Corpuscular Hemoglobin 30 pg 27-31 Mean Corpuscular HGB Conc 33 g/dL 31-36 Red Cell Distribution Width 15 % 10.5-15 Platelet Count 234 10^3/uL 150-450 Mean Platelet Volume 8 um3 7.4-10.4 Abs Neutrophils 1.9 10^3/uL 1.5-7.7 Abs Lymphocytes 2.1 10^3/uL 1.0-4.8 Abs Monocytes 0.5 10^3/uL 0-0.8 Abs Eosinophils 0.1 10^3/uL 0-0.6 Abs Basophils 0 10^3/uL 0-0.2 Abs Nucleated RBC 0 10^3/uL Granulocyte % 39.5 % 38-83 Lymphocyte % 45.2 % 25-47 Monocyte % 11.6 % High 1-9 Eosinophil % 2.7 % 0-6 Basophil % 1.0 % 0-2 Nucleated Red Blood Cells % 0 Laboratory test finding 02/09/2016 Erythrocyte Sed Rate 39 mm/Hr 0-40 CBC Auto Diff 01/26/2016 White Blood Count 5.9 10^3/uL 3.5-10.8 Red Blood Count 3.59 10^6/uL Low 4.0-5.4 Hemoglobin 10.7 g/dL Low 12.0-16.0 Hematocrit 33 % Low 35-47 Mean Corpuscular Volume 90 fL 80-97 Mean Corpuscular Hemoglobin 30 pg 27-31 Mean Corpuscular HGB Conc 33 g/dL 31-36 Red Cell Distribution Width 15 % 10.5-15 Platelet Count 286 10^3/uL 150-450 Mean Platelet Volume 8 um3 7.4-10.4 Abs Neutrophils 3.3 10^3/uL 1.5-7.7 Abs Lymphocytes 1.9 10^3/uL 1.0-4.8 Abs Monocytes 0.5 10^3/uL 0-0.8 Abs Eosinophils 0.2 10^3/uL 0-0.6 Abs Basophils 0 10^3/uL 0-0.2 Abs Nucleated RBC 0.01 10^3/uL Granulocyte % 56.2 % 38-83 Lymphocyte % 32.0 % 25-47 Monocyte % 8.5 % 1-9 Eosinophil % 2.7 % 0-6 Basophil % 0.6 % 0-2 Nucleated Red Blood Cells % 0.2 Comp Metabolic Panel 01/26/2016 Sodium 131 mmol/L Low 133-145 Potassium 4.8 mmol/L 3.5-5.0 Chloride 103 mmol/L 101-111 Co2 Carbon Dioxide 22 mmol/L 22-32 Anion Gap 6 mmol/L 2-11 Glucose 97 mg/dL 70-100 Blood Urea Nitrogen 34 mg/dL High 6-24 Creatinine 1.05 mg/dL High 0.51-0.95 BUN/Creatinine Ratio 32.4 High 8-20 Calcium 9.4 mg/dL 8.6-10.3 Total Protein 7.1 g/dL 6.4-8.9 Albumin 3.4 g/dL 3.2-5.2 Globulin 3.7 g/dL 2-4 Albumin/Globulin Ratio 0.9 Low 1-3 Total Bilirubin 0.60 mg/dL 0.2-1.0 Alkaline Phosphatase 65 U/L 34-104 Alt 9 U/L 7-52 Ast 16 U/L 13-39 Egfr Non- 50.7 >60 Egfr 65.2 >60 21 Laboratory test finding 01/26/2016 C Reactive Protein 7.52 mg/L High < 5.00 22 Erythrocyte Sed Rate 61 mm/Hr High 0-40 Laboratory test finding 01/06/2016 C Reactive Protein 11.94 mg/L High &lt ; 5.00 23 Erythrocyte Sed Rate 53 mm/Hr High 0-40 24 CBC Auto Diff 01/06/2016 White Blood Count 11.4 10^3/uL High 3.5-10.8 Red Blood Count 3.87 10^6/uL Low 4.0-5.4 Hemoglobin 11.4 g/dL Low 12.0-16.0 Hematocrit 35 % 35-47 Mean Corpuscular Volume 89 fL 80-97 Mean Corpuscular Hemoglobin 30 pg 27-31 Mean Corpuscular HGB Conc 33 g/dL 31-36 Red Cell Distribution Width 15 % 10.5-15 Platelet Count 341 10^3/uL 150-450 Mean Platelet Volume 8 um3 7.4-10.4 Abs Neutrophils 6.9 10^3/uL 1.5-7.7 Abs Lymphocytes 3.5 10^3/uL 1.0-4.8 Abs Monocytes 0.7 10^3/uL 0-0.8 Abs Eosinophils 0.2 10^3/uL 0-0.6 Abs Basophils 0.1 10^3/uL 0-0.2 Abs Nucleated RBC 0 10^3/uL Granulocyte % 60.3 % 38-83 Lymphocyte % 30.4 % 25-47 Monocyte % 6.5 % 1-9 Eosinophil % 2.0 % 0-6 Basophil % 0.8 % 0-2 Nucleated Red Blood Cells % 0 Comp Metabolic Panel 01/06/2016 Sodium 131 mmol/L Low 133-145 Potassium 4.8 mmol/L 3.5-5.0 Chloride 98 mmol/L Low 101-111 Co2 Carbon Dioxide 26 mmol/L 22-32 Anion Gap 7 mmol/L 2-11 Glucose 97 mg/dL 70-100 Blood Urea Nitrogen 33 mg/dL High 6-24 Creatinine 1.33 mg/dL High 0.51-0.95 BUN/Creatinine Ratio 24.8 High 8-20 Calcium 10.2 mg/dL 8.6-10.3 Total Protein 6.9 g/dL 6.4-8.9 Albumin 3.5 g/dL 3.2-5.2 Globulin 3.4 g/dL 2-4 Albumin/Globulin Ratio 1.0 1-3 Total Bilirubin 0.40 mg/dL 0.2-1.0 Alkaline Phosphatase 70 U/L 34-104 Alt 14 U/L 7-52 Ast 15 U/L 13-39 Egfr Non- 38.6 >60 Egfr 49.6 >60 25 Comp Metabolic Panel 09/17/2015 Sodium 130 mmol/L Low 133-145 Potassium 4.0 mmol/L 3.5-5.0 Chloride 100 mmol/L Low 101-111 Co2 Carbon Dioxide 24 mmol/L 22-32 Anion Gap 6 mmol/L 2-11 Glucose 88 mg/dL 70-100 Blood Urea Nitrogen 21 mg/dL 6-24 Creatinine 0.97 mg/dL High 0.51-0.95 BUN/Creatinine Ratio 21.6 High 8-20 Calcium 9.4 mg/dL 8.6-10.3 Total Protein 7.3 g/dL 6.4-8.9 Albumin 3.4 g/dL 3.2-5.2 Globulin 3.9 g/dL 2-4 Albumin/Globulin Ratio 0.9 Low 1-3 Total Bilirubin 0.60 mg/dL 0.2-1.0 Alkaline Phosphatase 65 U/L 34-104 Alt 9 U/L 7-52 Ast 16 U/L 13-39 Egfr Non- 55.5 >60 Egfr 71.4 >60 26 Laboratory test finding 09/17/2015 C Reactive Protein 3.01 mg/L < 5.00 27 CBC Auto Diff 09/17/2015 White Blood Count 9.4 10^3/uL 3.5-10.8 Red Blood Count 3.68 10^6/uL Low 4.0-5.4 Hemoglobin 10.4 g/dL Low 12.0-16.0 Hematocrit 32 % Low 35-47 Mean Corpuscular Volume 87 fL 80-97 Mean Corpuscular Hemoglobin 28 pg 27-31 Mean Corpuscular HGB Conc 33 g/dL 31-36 Red Cell Distribution Width 15 % 10.5-15 Platelet Count 288 10^3/uL 150-450 Mean Platelet Volume 8 um3 7.4-10.4 Abs Neutrophils 5.5 10^3/uL 1.5-7.7 Abs Lymphocytes 3.0 10^3/uL 1.0-4.8 Abs Monocytes 0.8 10^3/uL 0-0.8 Abs Eosinophils 0.1 10^3/uL 0-0.6 Abs Basophils 0 10^3/uL 0-0.2 Abs Nucleated RBC 0 10^3/uL Granulocyte % 58.5 % 38-83 Lymphocyte % 31.9 % 25-47 Monocyte % 8.3 % 1-9 Eosinophil % 1.1 % 0-6 Basophil % 0.2 % 0-2 Nucleated Red Blood Cells % 0 Laboratory test finding 09/17/2015 Erythrocyte Sed Rate 50 mm/Hr High 0- 40 Laboratory test finding 07/23/2015 Anti Ssa/Ro <0.2 U 28 Anti SSB LA <0.2 U 29 Protein Electrophoresis 07/23/2015 Total Protein(Pep) 7.2 g/dL 6.3 - 7.9 Albumin 3.2 g/dL 3.4-4.7 Alpha-1 Globulin 0.3 g/dL 0.1-0.3 Alpha-2 Globulin 1.0 g/dL 0.6-1.0 Beta Globulin 1.1 g/dL 0.7-1.2 Gamma Globulin 1.7 g/dL 0.6-1.6 Albumin/Globulin Ratio 0.80 Impression See Comment 30 Laboratory test finding 07/23/2015 Cryoglobulin Negative %ppt Negative 31 Vitamin B12 224 pg/mL 180-914 32 Free T4 (Free Thyroxine) 1.15 ng/dL High 0.61-1.12 33 TSH (Thyroid Stim Horm) 0.62 ?IU/mL 0.34-5.60 34 Comp Metabolic Panel 07/23/2015 Sodium 132 mmol/L Low 133-145 Potassium 4.9 mmol/L 3.5-5.0 Chloride 106 mmol/L 101-111 Co2 Carbon Dioxide 21 mmol/L Low 22-32 Anion Gap 5 mmol/L 2-11 Glucose 134 mg/dL High 70-100 Blood Urea Nitrogen 24 mg/dL 6-24 Creatinine 1.01 mg/dL High 0.51-0.95 BUN/Creatinine Ratio 23.8 High 8-20 Calcium 8.8 mg/dL 8.6-10.3 Total Protein 6.8 g/dL 6.4-8.9 Albumin 3.6 g/dL 3.2-5.2 Globulin 3.2 g/dL 2-4 Albumin/Globulin Ratio 1.1 1-3 Total Bilirubin 0.60 mg/dL 0.2-1.0 Alkaline Phosphatase 66 U/L 34-104 Alt 8 U/L 7-52 Ast 13 U/L 13-39 Egfr Non- 53.0 >60 Egfr 68.2 >60 35 Laboratory test finding 07/23/2015 C Reactive Protein 3.50 mg/L < 5.00 36 CBC Auto Diff 07/23/2015 White Blood Count 6.2 10^3/uL 3.5-10.8 Red Blood Count 3.40 10^6/uL Low 4.0-5.4 Hemoglobin 10.0 g/dL Low 12.0-16.0 Hematocrit 32 % Low 35-47 Mean Corpuscular Volume 93 fL 80-97 Mean Corpuscular Hemoglobin 29 pg 27-31 Mean Corpuscular HGB Conc 32 g/dL 31-36 Red Cell Distribution Width 18 % High 10.5-15 Platelet Count 268 10^3/uL 150-450 Mean Platelet Volume 9 um3 7.4-10.4 Abs Neutrophils 3.3 10^3/uL 1.5-7.7 Abs Lymphocytes 2.1 10^3/uL 1.0-4.8 Abs Monocytes 0.4 10^3/uL 0-0.8 Abs Eosinophils 0.3 10^3/uL 0-0.6 Abs Basophils 0.1 10^3/uL 0-0.2 Abs Nucleated RBC 0 10^3/uL Granulocyte % 53.8 % 38-83 Lymphocyte % 33.3 % 25-47 Monocyte % 7.2 % 1-9 Eosinophil % 4.1 % 0-6 Basophil % 1.6 % 0-2 Nucleated Red Blood Cells % 0 Laboratory test finding 07/23/2015 Erythrocyte Sed Rate 33 mm/Hr 0-40 Comp Metabolic Panel 06/25/2015 Sodium 130 mmol/L Low 133-145 Potassium 4.3 mmol/L 3.5-5.0 Chloride 101 mmol/L 101-111 Co2 Carbon Dioxide 23 mmol/L 22-32 Anion Gap 6 mmol/L 2-11 Glucose 120 mg/dL High 70-100 Blood Urea Nitrogen 28 mg/dL High 6-24 Creatinine 1.00 mg/dL High 0.51-0.95 BUN/Creatinine Ratio 28.0 High 8-20 Calcium 9.3 mg/dL 8.6-10.3 Total Protein 6.9 g/dL 6.4-8.9 Albumin 3.5 g/dL 3.2-5.2 Globulin 3.4 g/dL 2-4 Albumin/Globulin Ratio 1.0 1-3 Total Bilirubin 0.60 mg/dL 0.2-1.0 Alkaline Phosphatase 71 U/L 34-104 Alt 5 U/L Low 7-52 Ast 11 U/L Low 13-39 Egfr Non- 53.8 >60 Egfr 69.1 >60 37 Laboratory test finding 06/25/2015 C Reactive Protein 17.95 mg/L High &lt ; 5.00 38 CBC Auto Diff 06/25/2015 White Blood Count 7.7 10^3/uL 3.5-10.8 Red Blood Count 3.00 10^6/uL Low 4.0-5.4 Hemoglobin 9.1 g/dL Low 12.0-16.0 Hematocrit 27 % Low 35-47 Mean Corpuscular Volume 91 fL 80-97 Mean Corpuscular Hemoglobin 30 pg 27-31 Mean Corpuscular HGB Conc 33 g/dL 31-36 Red Cell Distribution Width 16 % High 10.5-15 Platelet Count 381 10^3/uL 150-450 Mean Platelet Volume 8 um3 7.4-10.4 Abs Neutrophils 4.7 10^3/uL 1.5-7.7 Abs Lymphocytes 2.1 10^3/uL 1.0-4.8 Abs Monocytes 0.7 10^3/uL 0-0.8 Abs Eosinophils 0.1 10^3/uL 0-0.6 Abs Basophils 0.1 10^3/uL 0-0.2 Abs Nucleated RBC 0 10^3/uL Granulocyte % 61.1 % 38-83 Lymphocyte % 27.7 % 25-47 Monocyte % 8.9 % 1-9 Eosinophil % 1.4 % 0-6 Basophil % 0.9 % 0-2 Nucleated Red Blood Cells % 0 Laboratory test finding 06/25/2015 Erythrocyte Sed Rate 61 mm/Hr High 0- 40 Laboratory test finding 05/21/2015 C Reactive Protein 64.88 mg/L High &lt ; 5.00 39 Erythrocyte Sed Rate 89 mm/Hr High 0-40 40 CBC Auto Diff 05/21/2015 White Blood Count 9.0 10^3/uL 3.5-10.8 Red Blood Count 3.55 10^6/uL Low 4.0-5.4 Hemoglobin 10.5 g/dL Low 12.0-16.0 Hematocrit 32 % Low 35-47 Mean Corpuscular Volume 90 fL 80-97 Mean Corpuscular Hemoglobin 30 pg 27-31 Mean Corpuscular HGB Conc 33 g/dL 31-36 Red Cell Distribution Width 14 % 10.5-15 Platelet Count 386 10^3/uL 150-450 Mean Platelet Volume 8 um3 7.4-10.4 Abs Neutrophils 5.5 10^3/uL 1.5-7.7 Abs Lymphocytes 2.6 10^3/uL 1.0-4.8 Abs Monocytes 0.7 10^3/uL 0-0.8 Abs Eosinophils 0.1 10^3/uL 0-0.6 Abs Basophils 0.1 10^3/uL 0-0.2 Abs Nucleated RBC 0 10^3/uL Granulocyte % 61.1 % 38-83 Lymphocyte % 29.0 % 25-47 Monocyte % 8.2 % 1-9 Eosinophil % 0.8 % 0-6 Basophil % 0.9 % 0-2 Nucleated Red Blood Cells % 0 Comp Metabolic Panel 05/21/2015 Sodium 131 mmol/L Low 133-145 Potassium 4.6 mmol/L 3.5-5.0 Chloride 99 mmol/L Low 101-111 Co2 Carbon Dioxide 23 mmol/L 22-32 Anion Gap 9 mmol/L 2-11 Glucose 162 mg/dL High 70-100 Blood Urea Nitrogen 30 mg/dL High 6-24 Creatinine 0.96 mg/dL High 0.51-0.95 BUN/Creatinine Ratio 31.3 High 8-20 Calcium 10.4 mg/dL High 8.6-10.3 Total Protein 6.7 g/dL 6.4-8.9 Albumin 3.4 g/dL 3.2-5.2 Globulin 3.3 g/dL 2-4 Albumin/Globulin Ratio 1.0 1-3 Total Bilirubin 0.50 mg/dL 0.2-1.0 Alkaline Phosphatase 78 U/L 34-104 Alt 7 U/L 7-52 Ast 11 U/L Low 13-39 Egfr Non- 56.4 >60 Egfr 72.5 >60 41 Quantiferon Gold TB 05/21/2015 M tuberculosis by Quantiferon Negative Negative Tuberculosis Antigen Value 0.00 IU/mL 42 Laboratory test finding 04/22/2015 Lyme Disease Serology Negative Negative 43 Vitamin D 1,25 And 04/22/2015 Vitamin D Total 25(Oh) 14.4 ng/mL Low 30-50 44 Vitamin D,2 Vitamin D, 1,25 Dihydroxy 42 pg/mL 18-78 45 Laboratory test finding 04/22/2015 Sepideh (Antinuclear Negative Negative Antibodies) Angiotensin Converting Enzyme 9 U/L 8 - 53 46 C Reactive Protein 55.48 mg/L High < 5.00 47 Cyclic Citrullinated Pep Igg >250.0 U 48 Rheumatoid Factor <15 IU/mL <15 49 Uric Acid 6.5 mg/dL 2.3-6.6 50 Vitamin B12 347 pg/mL 180-914 51 CBC No Diff 03/17/2014 White Blood Count 5.8 10^3/uL 4.8-10.8 52 Red Blood Count 3.89 10^6/uL Low 4.0-5.4 52 Hemoglobin 11.2 g/dL Low 12.0-16.0 52 Hematocrit 35 % 35-47 52 Mean Corpuscular Volume 90 fL 80-97 52 Mean Corpuscular Hemoglobin 29 pg 27-31 52 Mean Corpuscular HGB Conc 32 g/dL 31-36 52 Red Cell Distribution Width 15 % 10.5-15 52 Platelet Count 262 10^3/uL 150-450 52 Mean Platelet Volume 9 um3 7.4-10.4 52 Type & Screen 03/17/2014 Patient Blood Type O Positive 52 Antibody Screen NEGATIVE 52 Laboratory test 03/17/2014 Activated Partial 28.5 seconds 24.0-36.1 52, 53 finding Thrombo Time Inr/Protime 03/17/2014 Inr 1.01 0.85-1.06 52 Basic Metabolic Panel 03/17/2014 Sodium 131 mmol/L Low 133-145 52 Potassium 4.1 mmol/L 3.5-5.0 52 Chloride 100 mmol/L Low 101-111 52 Co2 Carbon Dioxide 28 mmol/L 22-32 52 Anion Gap 3 mmol/L 2-11 52 Glucose 105 mg/dL High 70-100 52 Blood Urea Nitrogen 25 mg/dL High 6-24 52 Creatinine 1.01 mg/dL High 0.51-0.95 52 BUN/Creatinine Ratio 24.8 High 8-20 52 Calcium 10.0 mg/dL 8.6-10.3 52 Egfr Non- 53.3 >60 52 Egfr 68.5 >60 52, 54 1 SEE RESULT BELOW Name: TU KAHN : [address]: Estuardo Christiansen NP Acct: [id number] Unit: [id number] AGE: 81 Location: LAB Re02/24/17 SEX: F Status: REG REF SPEC: [id number] ELIAS: 02/24/[address]: Estuardo Christiansen NP REQ: [id number] RECD: 02/24/17 STATUS: COMP _ SOURCE: URINE SPDESC: ORDERED: Urine Culture Procedure Result Reported Site Urine Culture Final 02/26/17- 0853 ML Organism 1 ESCHERICHIA COLI [place] Count >100,000 (Many) CFU/ML 1. ESCHERICHIA COLI [facility].I.C. RX --------- ------ Ampicillin >=32 R Cefazolin <=4 S Cefepime <=1 S Ceftriaxone <=1 S Ciprofloxacin 0.5 S Gentamicin >=16 R Levofloxacin 1 S Meropenem <=0.25 S Nitrofurantoin <=16 S Tetracycline >=16 R Pipercillin/Tazobactam <=4 S Trimethoprim/Sulfamethoxazole >=320 R Amoxicillin/Clavulanic Acid 8 S Aztreonam <=1 S Contact the Microbiology Department for any additional antibiotic reporting. * ML - MAIN LAB ([facility]) . END OF REPORT * ML=Testing performed at Main Lab DEPARTMENT OF PATHOLOGY, [address] [place] [address] Mode Wilburn M.D. Director [facility] # [id number] 2 1 x order 3 1 x order 4 1 x order 5 Acute inflammation: >10.00 6 Because ethnic data is not always readily available, this report includes an eGFR for both -Americans and non- Americans. The National Kidney Disease Education Program (NKDEP) does not endorse the use of the MDRD equation for patients that are not between the ages of 18 and 70, are , have extremes of body size, muscle mass, or nutritional status, or are non- or non-. According to the National Kidney Foundation, irrespective of diagnosis, the stage of the disease is based on the level of kidney function: Stage Description GFR(mL/min/1.73 m(2)) 1 Kidney damage with normal or decreased GFR 90 2 Kidney damage with mild decrease in GFR 60-89 3 Moderate decrease in GFR 30-59 4 Severe decrease in GFR 15-29 5 Kidney failure <15 (or dialysis) 7 Because ethnic data is not always readily available, this report includes an eGFR for both -Americans and non- Americans. The National Kidney Disease Education Program (NKDEP) does not endorse the use of the MDRD equation for patients that are not between the ages of 18 and 70, are , have extremes of body size, muscle mass, or nutritional status, or are non- or non-. According to the National Kidney Foundation, irrespective of diagnosis, the stage of the disease is based on the level of kidney function: Stage Description GFR(mL/min/1.73 m(2)) 1 Kidney damage with normal or decreased GFR 90 2 Kidney damage with mild decrease in GFR 60-89 3 Moderate decrease in GFR 30-59 4 Severe decrease in GFR 15-29 5 Kidney failure <15 (or dialysis) 8 Acute inflammation: >10.00 9 Acute inflammation: >10.00 10 Because ethnic data is not always readily available, this report includes an eGFR for both -Americans and non- Americans. The National Kidney Disease Education Program (NKDEP) does not endorse the use of the MDRD equation for patients that are not between the ages of 18 and 70, are , have extremes of body size, muscle mass, or nutritional status, or are non- or non-. According to the National Kidney Foundation, irrespective of diagnosis, the stage of the disease is based on the level of kidney function: Stage Description GFR(mL/min/1.73 m(2)) 1 Kidney damage with normal or decreased GFR 90 2 Kidney damage with mild decrease in GFR 60-89 3 Moderate decrease in GFR 30-59 4 Severe decrease in GFR 15-29 5 Kidney failure <15 (or dialysis) 11 Because ethnic data is not always readily available, this report includes an eGFR for both -Americans and non- Americans. The National Kidney Disease Education Program (NKDEP) does not endorse the use of the MDRD equation for patients that are not between the ages of 18 and 70, are , have extremes of body size, muscle mass, or nutritional status, or are non- or non-. According to the National Kidney Foundation, irrespective of diagnosis, the stage of the disease is based on the level of kidney function: Stage Description GFR(mL/min/1.73 m(2)) 1 Kidney damage with normal or decreased GFR 90 2 Kidney damage with mild decrease in GFR 60-89 3 Moderate decrease in GFR 30-59 4 Severe decrease in GFR 15-29 5 Kidney failure <15 (or dialysis) 12 Acute inflammation: >10.00 13 Because ethnic data is not always readily available, this report includes an eGFR for both -Americans and non- Americans. The National Kidney Disease Education Program (NKDEP) does not endorse the use of the MDRD equation for patients that are not between the ages of 18 and 70, are , have extremes of body size, muscle mass, or nutritional status, or are non- or non-. According to the National Kidney Foundation, irrespective of diagnosis, the stage of the disease is based on the level of kidney function: Stage Description GFR(mL/min/1.73 m(2)) 1 Kidney damage with normal or decreased GFR 90 2 Kidney damage with mild decrease in GFR 60-89 3 Moderate decrease in GFR 30-59 4 Severe decrease in GFR 15-29 5 Kidney failure <15 (or dialysis) 14 Because ethnic data is not always readily available, this report includes an eGFR for both -Americans and non- Americans. The National Kidney Disease Education Program (NKDEP) does not endorse the use of the MDRD equation for patients that are not between the ages of 18 and 70, are , have extremes of body size, muscle mass, or nutritional status, or are non- or non-. According to the National Kidney Foundation, irrespective of diagnosis, the stage of the disease is based on the level of kidney function: Stage Description GFR(mL/min/1.73 m(2)) 1 Kidney damage with normal or decreased GFR 90 2 Kidney damage with mild decrease in GFR 60-89 3 Moderate decrease in GFR 30-59 4 Severe decrease in GFR 15-29 5 Kidney failure <15 (or dialysis) 15 Because ethnic data is not always readily available, this report includes an eGFR for both -Americans and non- Americans. The National Kidney Disease Education Program (NKDEP) does not endorse the use of the MDRD equation for patients that are not between the ages of 18 and 70, are , have extremes of body size, muscle mass, or nutritional status, or are non- or non-. According to the National Kidney Foundation, irrespective of diagnosis, the stage of the disease is based on the level of kidney function: Stage Description GFR(mL/min/1.73 m(2)) 1 Kidney damage with normal or decreased GFR 90 2 Kidney damage with mild decrease in GFR 60-89 3 Moderate decrease in GFR 30-59 4 Severe decrease in GFR 15-29 5 Kidney failure <15 (or dialysis) 16 Unable to report test result due to hemolysis. 17 Unable to report test result due to hemolysis. 18 Acute inflammation: >10.00 19 Because ethnic data is not always readily available, this report includes an eGFR for both -Americans and non- Americans. The National Kidney Disease Education Program (NKDEP) does not endorse the use of the MDRD equation for patients that are not between the ages of 18 and 70, are , have extremes of body size, muscle mass, or nutritional status, or are non- or non-. According to the National Kidney Foundation, irrespective of diagnosis, the stage of the disease is based on the level of kidney function: Stage Description GFR(mL/min/1.73 m(2)) 1 Kidney damage with normal or decreased GFR 90 2 Kidney damage with mild decrease in GFR 60-89 3 Moderate decrease in GFR 30-59 4 Severe decrease in GFR 15-29 5 Kidney failure <15 (or dialysis) 20 Acute inflammation: >10.00 21 Because ethnic data is not always readily available, this report includes an eGFR for both -Americans and non- Americans. The National Kidney Disease Education Program (NKDEP) does not endorse the use of the MDRD equation for patients that are not between the ages of 18 and 70, are , have extremes of body size, muscle mass, or nutritional status, or are non- or non-. According to the National Kidney Foundation, irrespective of diagnosis, the stage of the disease is based on the level of kidney function: Stage Description GFR(mL/min/1.73 m(2)) 1 Kidney damage with normal or decreased GFR 90 2 Kidney damage with mild decrease in GFR 60-89 3 Moderate decrease in GFR 30-59 4 Severe decrease in GFR 15-29 5 Kidney failure <15 (or dialysis) 22 Acute inflammation: >10.00 23 Acute inflammation: >10.00 24 Please check today 25 Because ethnic data is not always readily available, this report includes an eGFR for both -Americans and non- Americans. The National Kidney Disease Education Program (NKDEP) does not endorse the use of the MDRD equation for patients that are not between the ages of 18 and 70, are , have extremes of body size, muscle mass, or nutritional status, or are non- or non-. According to the National Kidney Foundation, irrespective of diagnosis, the stage of the disease is based on the level of kidney function: Stage Description GFR(mL/min/1.73 m(2)) 1 Kidney damage with normal or decreased GFR 90 2 Kidney damage with mild decrease in GFR 60-89 3 Moderate decrease in GFR 30-59 4 Severe decrease in GFR 15-29 5 Kidney failure <15 (or dialysis) 26 Because ethnic data is not always readily available, this report includes an eGFR for both -Americans and non- Americans. The National Kidney Disease Education Program (NKDEP) does not endorse the use of the MDRD equation for patients that are not between the ages of 18 and 70, are , have extremes of body size, muscle mass, or nutritional status, or are non- or non-. According to the National Kidney Foundation, irrespective of diagnosis, the stage of the disease is based on the level of kidney function: Stage Description GFR(mL/min/1.73 m(2)) 1 Kidney damage with normal or decreased GFR 90 2 Kidney damage with mild decrease in GFR 60-89 3 Moderate decrease in GFR 30-59 4 Severe decrease in GFR 15-29 5 Kidney failure <15 (or dialysis) 27 Acute inflammation: >10.00 28 REFERENCE VALUE <1.0 (Negative) Test Performed by: [address] [address] [place] Caller: Rashaun Yo II, M.D., Ph.D. 29 REFERENCE VALUE <1.0 (Negative) Test Performed by: [place] [address] [employer] Caller: Rashaun Yo II, M.D., Ph.D. 30 RESULT: Polyclonal hypergammaglobulinemia Test Performed by: [place] [address] [employer] Caller: Rashaun Yo II, M.D., Ph.D. 31 This test is negative at 24 hours. All samples are held and reviewed again at 7 days. If delayed precipitation occurs after 7 days, Immunofixation will be performed and an additional report will follow. Test Performed by: [place] [address] [employer] Caller: Rashaun Yo II, M.D., Ph.D. 32 Normal Range 180 to 914 Indeterminate Range 145 to 180 Deficient Range <145 33 Copy Result to: ERASTO BHARDWAJ ([id number]) 34 Copy Result to: ERASTO BHARDWAJ ([id number]) 35 Because ethnic data is not always readily available, this report includes an eGFR for both -Americans and non- Americans. The National Kidney Disease Education Program (NKDEP) does not endorse the use of the MDRD equation for patients that are not between the ages of 18 and 70, are , have extremes of body size, muscle mass, or nutritional status, or are non- or non-. According to the National Kidney Foundation, irrespective of diagnosis, the stage of the disease is based on the level of kidney function: Stage Description GFR(mL/min/1.73 m(2)) 1 Kidney damage with normal or decreased GFR 90 2 Kidney damage with mild decrease in GFR 60-89 3 Moderate decrease in GFR 30-59 4 Severe decrease in GFR 15-29 5 Kidney failure <15 (or dialysis) 36 Acute inflammation: >10.00 37 Because ethnic data is not always readily available, this report includes an eGFR for both -Americans and non- Americans. The National Kidney Disease Education Program (NKDEP) does not endorse the use of the MDRD equation for patients that are not between the ages of 18 and 70, are , have extremes of body size, muscle mass, or nutritional status, or are non- or non-. According to the National Kidney Foundation, irrespective of diagnosis, the stage of the disease is based on the level of kidney function: Stage Description GFR(mL/min/1.73 m(2)) 1 Kidney damage with normal or decreased GFR 90 2 Kidney damage with mild decrease in GFR 60-89 3 Moderate decrease in GFR 30-59 4 Severe decrease in GFR 15-29 5 Kidney failure <15 (or dialysis) 38 Acute inflammation: >10.00 39 Acute inflammation: >10.00 40 this week please 41 Because ethnic data is not always readily available, this report includes an eGFR for both -Americans and non- Americans. The National Kidney Disease Education Program (NKDEP) does not endorse the use of the MDRD equation for patients that are not between the ages of 18 and 70, are , have extremes of body size, muscle mass, or nutritional status, or are non- or non-. According to the National Kidney Foundation, irrespective of diagnosis, the stage of the disease is based on the level of kidney function: Stage Description GFR(mL/min/1.73 m(2)) 1 Kidney damage with normal or decreased GFR 90 2 Kidney damage with mild decrease in GFR 60-89 3 Moderate decrease in GFR 30-59 4 Severe decrease in GFR 15-29 5 Kidney failure <15 (or dialysis) 42 ADDITIONAL INFORMATION This is a qualitative test. The TB antigen IU/mL value is required for documentation on certain government reporting forms (e.g., Form I-693), but this value should not be used to monitor disease progression or response to therapy. Diagnosing or excluding tuberculosis disease, and assessing the probability of LTBI, require a combination of epidemiological, historical, medical, and diagnostic findings that should be taken into account when interpreting QuantiFERON-TB results. Test Performed by: [place] [id number] Yard[employer] Caller: Rashaun Yo II, M.D., Ph.D. 43 Serologic response to B. burgdorferi infection is not detected, but cannot rule out early infection during which low or undetectable antibody levels to B. burgdorferi may be present. If clinically indicated, a new serum specimen should be submitted in 7-14 days. Test Performed by: [place] [address] Yardage Caller: Rashaun Yo II, M.D., Ph.D. 44 this week 45 Test Performed by: [place] [address] Yardage Caller: Rashaun Yo II, M.D., Ph.D. 46 Test Performed by: [place] [address] Yardage Caller: Rashaun Yo II, M.D., Ph.D. 47 Acute inflammation: >10.00 48 Interpretation: Strong Positive (>=60.0) REFERENCE VALUE <20.0 (Negative) Test Performed by: [place] [address] Yardage Caller: Rashaun Yo II, M.D., Ph.D. 49 Test Performed by: [place] [address] Yardage Caller: Rashaun Yo II, M.D., Ph.D. 50 this week 51 Normal Range 180 to 914 Indeterminate Range 145 to 180 Deficient Range <145 52 SDS 03/20 53 SDS 03/20 54 Because ethnic data is not always readily available, this report includes an eGFR for both -Americans and non- Americans. The National Kidney Disease Education Program (NKDEP) does not endorse the use of the MDRD equation for patients that are not between the ages of 18 and 70, are , have extremes of body size, muscle mass, or nutritional status, or are non- or non-. According to the National Kidney Foundation, irrespective of diagnosis, the stage of the disease is based on the level of kidney function: Stage Description GFR(mL/min/1.73 m(2)) 1 Kidney damage with normal or decreased GFR 90 2 Kidney damage with mild decrease in GFR 60-89 3 Moderate decrease in GFR 30-59 4 Severe decrease in GFR 15-29 5 Kidney failure <15 (or dialysis) Procedures Date CPT Code Description Status 02/24/2017 54710 Admin Of Inj Completed 05/06/2016 72008 Arthroplasty,Total Shoulder Replacement (TSR) Completed 05/06/2016 53761 Arthroplasty,Total Shoulder Replacement (TSR) Completed 02/17/2016 03372 Inject/Drain Joint/Bursa Major Completed 01/06/2016 32599 Chemotherpy Admin Subcutaneous/Im Non-Hormonal Completed Anti-Neoplastic 08/25/2015 81407 Nerve Conduction 07-08 Studies Completed 06/24/2015 00909 Chemotherpy Admin Subcutaneous/Im Non-Hormonal Completed Anti-Neoplastic 05/21/2015 Bone Mineral Density Test Completed 03/20/2014 26653 Repair Nonunion/Malunion Humerus Completed 03/20/2014 11782 Repair Nonunion/Malunion Humerus Completed 03/05/2014 06610 Rad Exam; Humerus Completed 02/03/2014 82468 Rad Exam; Humerus Completed 01/08/2014 07435 Rad Exam; Humerus Completed 12/17/2013 26817 closed tx humeral shaft fx w/manipulation w w/o Completed traction Encounters Type Date Location Provider CPT E/M Dx Office Visit 02/24/2017 [facility] KEILA Fraga 35379 M05.79 9:00a Of [facility] R79.82 D50.9 M81.0 E55.9 R05 R30.0 Z79.899 Z92.29 Office Visit 12/06/2016 1:30p [facility] [address] M05.79 C.M.A. Z96.611 M25.611 Office Visit 11/18/2016 3:00p [facility] KEILA Fraga 34928 M05.79 Of [facility] Z96.611 R79.82 R70.0 D64.9 M81.0 Z79.899 Office Visit 09/29/2016 9:15a [facility] [address] M05.79 Marc Z96.611 Office Visit 08/12/2016 9:30a [facility] KEILA Fraga 12353 M05.79 Of [facility] Z96.611 R79.82 R70.0 D64.9 M81.0 Z79.899 Office Visit 07/15/2016 9:00a [facility] KEILA Fraga 68185 M05.79 Of [facility] Z96.611 R79.82 R70.0 D64.9 M81.0 Z79.899 E87.1 Office Visit 05/06/2016 12:49p [facility] Assnolberto,Henrique Mayer.Katheryn 62495 Z96.611 Hospitalists I48.92 I10 Office Visit 03/08/2016 2:00p [facility] [address] M19.011 Marc Office Visit 03/02/2016 10:00a [facility] Marvin Negro 20810 M05.89 Of Caty M.D. G62.9 Z79.899 M81.0 Office Visit 02/17/2016 3:00p [facility] Adriel Rice, 29548 M19.011 Of Marc SIMMS S46.011A Office Visit 01/06/2016 4:00p [facility] [place] 23648 M81.0 [facility] M.D. M05.89 G62.9 Z79.899 Z23 Office Visit 10/01/2015 10:40a [facility] Marvin Negro 77434 M05.89 Of [facility] M.D. G62.9 E10.9 Z79.899 Office Visit 07/28/2015 10:40a [facility] Marvin Negro 49388 M05.89 Of [facility] M.D. G62.9 M81.0 Z79.899 Office Visit 07/21/2015 9:00a [facility] Jody Godoy, 32148 G62.9 Services Of [facility] M.D. G56.02 G56.01 G56.22 Office Visit 05/20/2015 9:00a [facility] Marvin Negro 03733 M05.89 Of Caty Thurman Z79.899 R20.8 M81.0 Office Visit 04/20/2015 11:00a [facility] Of [place] Negro, 45811 M06.4 Caty Thurman R20.8 R76.0 Office Visit 09/01/2014 2:45p [facility] [place] Rainey M.D. 30149 V54.09 C.M.ASailaja V67.4 V15.51 Office Visit 12/17/2013 7:00a [facility] [place] Rainey M.D. 83620 812.21 C.M.A. Plan of Care Future Appointment(s):09/12/2017 9:00 am - KEILA Fraga at [facility]06/09/2017 - LEONEL FragaPM05.79 Rheu arthritis w rheu factor mult site w/o org/sys involvComments:Please continue on present dose of methotrexate.Take folic acid dailyPlease get labs todayWe will call if we need to change this because of abnormal labs.Follow up:3 month labs today and yhqbiM28.9 Iron deficiency anemia, unspecifiedComments:Please restart on iron jvgmpdvoueK23.0 Age-related osteoporosis w/o current pathological fractureComments:Please continue on calcium and vitamin D supplest.Your next Prolia will be at your next visit.E55.9 Vitamin D deficiency, bwpxisrgshaL94.83 Other xarubtbZ32.899 Other prison (current) drug uccgjwuN72.512 Pain in left shoulderNew Therapy:Physical Therapy
[2017-06-20 07:00] LABS: ABS Basophils 0 10^3/ul (0-0.2); ABS Eosinophils 0 10^3/ul (0-0.6); ABS Lymphocytes 0.6 10^3/ul (1.0-4.8); ABS Monocytes 0.2 10^3/ul (0-0.8); ABS Neutrophils 8.9 10^3/ul (1.5-7.7); ABS Nucleated RBC 0 10^3/ul; Eosinophil % 0 % (0-6); Hematocrit 39 % (35-47); Hemoglobin 12.6 g/dl (12.0-16.0); Lymphocyte % 5.9 % (25-47); Mean Corpuscular HGB Conc 33 g/dl (31-36); Mean Corpuscular Hemoglobin 30 pg (27-31); Mean Corpuscular Volume 90 fL (80-97); Mean Platelet Volume 8.5 um3 (7.4-10.4); Nucleated Red Blood Cells % 0; Platelet Count 269 10^3/ul (150-450); Red Blood Count 4.27 10^6/ul (4.0-5.4); Red Cell Distribution Width 17 % (10.5-15); White Blood Count 9.7 10^3/ul (3.5-10.8)
--- NOTE | 2017-06-20 07:03 | ED ---
Mina Chavarria Rebecca, scribed for Nguyễn Perez on 06/20/17 at 0456 . Respiratory - HPI Summary HPI Summary: Pt is a 81 y/o F BIBA who presents to ED due to SOB and wheezing. Received 2 ASA at 0300. Per EMS, they were called due to significant SOB described as dyspnea at rest. Additionally noted a cough for the last few days and intermittent CP for the last few weeks, currently not present. EMS report rales to auscultation en route. She was given NTG x2 en route and placed on CPAP. BP has been elevated since EMS arrival on scene. Typically able to walk with a cane and does not use O2 at home. FHx CAD. No respiratory PMHx reported including COPD and emphysema. - History of Current Complaint Chief Complaint: EDRespiratoryDistress Stated Complaint: SOB Time Seen by Provider: 06/20/17 04:38 Hx Obtained From: Family/[employer], EMS Onset/Duration: Still Present Current Severity: Severe Pain Intensity: 0 Character: Wheezing Aggravating Factor(s): Nothing Associated Signs and Symptoms: SOB - Allergy/Home Medications Allergies/Adverse Reactions: Allergies Allergy/AdvReac Type Severity Reaction Status Date / Time hydroxyzine Allergy Unknown Verified 06/20/17 05:02 Reaction Details Iodinated Contrast- Oral and AdvReac Severe Diarrhea Verified 06/20/17 05:02 IV Dye oxycodone AdvReac Severe Nausea And Verified 06/20/17 05:02 Vomiting amoxicillin [From Augmentin] AdvReac Intermediate Nausea And Verified 06/20/17 05:02 Vomiting clavulanic acid AdvReac Intermediate Nausea And Verified 06/20/17 05:02 [From Augmentin] Vomiting PMH/Surg Hx/FS Hx/Imm Hx Endocrine/Hematology History: Reports: Hx Diabetes - TYPE ll Cardiovascular History: Reports: Hx Coronary Artery Disease - CAROTID ENDARTERECTOMY 2013, Hx Hypertension, Other Cardiovascular Problems/Disorders - HIGH CHOLESTEROL, LBBB, SEE COMMENT GI History: Reports: Hx Gastroesophageal Reflux Disease - ON PROTONIX DAILY, Hx Hiatal Hernia - HISTORY OF, Other GI Disorders - CHOLECYSTECTOMY, ABD HERNIA REPAIR, PANCREATITIS, HIGH CHOLESTEROL History: Reports: Other Problems/Disorders - STRESS INCONTINENCE WITH COUGHING/SNEEZING Musculoskeletal History: Reports: Hx Arthritis - RIGHT SHOULDER, KNEES, Other Musculoskeletal History - PRIMARY OSTEOARTHRITIS, RIGHT SHOULDER, BILAT TKR, FX HUMERUS Sensory History: Reports: Hx Cataracts, Hx Contacts or Glasses - GLASSES Denies: Hx Hearing Aid Opthamlomology History: Reports: Hx Cataracts, Hx Contacts or Glasses - GLASSES Neurological History: Denies: Other Neuro Impairments/Disorders - RESIDUAL - Cancer History Hx Chemotherapy: No - Surgical History Surgery Procedure, Year, and Place: 05/2001 CHOLECYSTECTOMY- [facility]. 2002 ADB HERNIA REPAIR- [facility]. 2003 LEFT TKR- [facility]. 2004 RIGHT TKR- [facility]. 2013 BILATERAL CAROTID ENDARTERECTOMY- [facility]. 02/2014 ORIF FX LEFT HUMERUS- [facility]. 05/2015 BILATERAL CATARACT EXTRACTION WITH IOL IMPLANT- [facility] Hx Anesthesia Reactions: No Infectious Disease History: No Infectious Disease History: Denies: Hx Clostridium Difficile, Hx Hepatitis, Hx Human Immunodeficiency Virus (HIV), Hx of Known/Suspected MRSA, Hx Shingles, Hx Tuberculosis, History Other Infectious Disease, Traveled Outside the [place] in Last 30 Days - Family History Known Family History: Positive: Cardiac Disease - Social History Alcohol Use: None Substance Use Type: Reports: None Hx Tobacco Use: No Smoking Status (MU): Never Smoked Tobacco Have You Smoked in the Last Year: No Review of Systems Positive: Chest Pain - intermittent Positive: Shortness Of Breath, Cough, Other - Wheezing; rales to auscultation All Other Systems Reviewed And Are Negative: Yes Physical Exam - Summary Physical Exam Summary: Appearance: No pain distress Skin: warm, dry, reflects adequate perfusion Head/face: normal Eyes: EOMI, MARIANNE ENT: normal Neck: supple, non-tender Respiratory: bilateral wheeze, breath sounds present Cardiovascular: tachycardic, irregularly irregular heart rate, pulses symmetrical Abdomen: non-tender, soft Bowel: present Musculoskeletal: strength/ROM intact, mild pedal edema bilaterally Neuro: normal, sensory motor intact, A&Ox3 Triage Information Reviewed: Yes Vital Signs On Initial Exam: Initial Vitals Temp Pulse Resp BP Pulse Ox 98.8 F 189 30 166/110 92 06/20/17 04:35 06/20/17 04:35 06/20/17 04:35 06/20/17 04:35 06/20/17 04:35 Vital Signs Reviewed: Yes Diagnostics - Vital Signs Vital Signs Temp Pulse Resp BP Pulse Ox 06/20/17 04:35 98.8 F 189 30 166/110 92 - Laboratory Lab Results: Lab Results 06/20/17 06/20/17 Range/Units 05:18 06:34 WBC 9.7 (3.5-10.8) 10^3/ul RBC 4.27 (4.0-5.4) 10^6/ul Hgb 12.6 (12.0-16.0) g/dl Hct 39 (35-47) % MCV 90 (80-97) fL MCH 30 (27-31) pg MCHC 33 (31-36) g/dl RDW 17 H (10.5-15) % Plt Count 269 (150-450) 10^3/ul MPV 8.5 (7.4-10.4) um3 Neut % (Auto) 91.5 H (38-83) % Lymph % (Auto) 5.9 L (25-47) % [place] % (Auto) 2.3 (0-7) % Eos % (Auto) 0 (0-6) % Baso % (Auto) 0.3 (0-2) % Absolute Neuts (auto) 8.9 H (1.5-7.7) 10^3/ul Absolute Lymphs (auto) 0.6 L (1.0-4.8) 10^3/ul Absolute Monos (auto) 0.2 (0-0.8) 10^3/ul Absolute Eos (auto) 0 (0-0.6) 10^3/ul Absolute Basos (auto) 0 (0-0.2) 10^3/ul Absolute Nucleated RBC 0 10^3/ul Nucleated RBC % 0 Patient Temperature Not Reportable ABG pH 7.37 (7.35-7.45) ABG pH (Temp Correct) Not Reportable ABG pCO2 41 (35-45) mmHg ABG pCO2 (Temp Corrct Not Reportable ABG pO2 183 H (80-100) mmHg ABG pO2 (Temp Correct Not Reportable ABG HCO3 23.8 (19-31) mmol/L ABG O2 Saturation 99.4 H (95-98) % ABG Base Excess -1.5 (-2.0-2.0) Respiration Rate Not Reportable O2 Delivery Device Bipap Ventilator Type Not Reportable Vent Mode S/t FiO2 60 Inspiratory Time Not Reportable PEEP Not Reportable Pressure Support Not Reportable Pressure Control Not Reportable EPAP 8 IPAP 16 BiPAP Not Reportable Result Diagrams: 06/20/17 06:34 Lab Statement: Any lab studies that have been ordered have been reviewed, and results considered in the medical decision making process. - Radiology CXR Radiology Interpretation Completed By: ED Physician - CHF - EKG 0437 Cardiac Rate: Tachycardia - 127 bpm EKG Rhythm: Atrial Fibrillation EKG Interpretation: A fib with RVR 0514 Cardiac Rate: Tachycardia - 126 bpm EKG Rhythm: Sinus Tachycardia EKG Interpretation: Sinus tachycardia 0534 Cardiac Rate: NL - 86 bpm EKG Rhythm: Sinus Rhythm EKG Interpretation: LBBB Re-Evaluation - Re-Evaluation First Eval Re-Evaluation Time: 04:53 Comment: HR decreased. Disposition - Course Assessment/Plan: Pt is a 81 y/o F BIBA who presents to ED due to SOB and wheezing. Received 2 ASA at 0300. Per EMS, they were called due to significant dyspnea at rest. Additionally noted a cough for the last few days and intermittent CP for the last few weeks, currently not present. EMS report rales to auscultation en route. She was given NTG x2 en route and placed on CPAP. BP has been elevated since EMS arrival on scene. Typically able to walk with a cane and does not use O2 at home. FHx CAD. No respiratory PMHx reported including COPD and emphysema. DIfficult yobtaining blood work for labs. Blood gas was done. CXR reveals CHF. EKGs showed A Fib with RVR, sinus tachy, then sinus rhythm. In the ED course, pt received Diltiazem, lasix, solu-medrol, and duoneb. Pt will be signed out to Dr. Ashley with Dx of respiratory failure and CHF, pending dispo. Allergies noted. 30 minutes of critical care time. - Differential Dx - Cardiopulmonary Differential Diagnoses - Cardiopulmonary: Atrial Fibrillation - Diagnoses Provider Diagnoses: Respiratory failure, CHF (congestive heart failure) - Physician Notifications Discussed Care Of Patient With: hospitalist for admission. Instructed by Provider To: Admit As Inpatient - Critical Care Time Critical Care Time: 75-104 min - 30 minutes. Discharge - Sign-Out/Discharge Documenting (check all that apply): Sign-Out Patient Signing out patient TO: Lavon Ashley - Labs - Discharge Plan Condition: Stable Referrals: Kanu Bhardwaj MD [Primary Care Provider] - - Billing Disposition and Condition Condition: STABLE The documentation as recorded by the Mina pacheco Rebecca accurately reflects the service I personally performed and the decisions made by , Nguyễn Perez.
[2017-06-20 07:08] LABS: INR 0.97 (0.77-1.02)
[2017-06-20] MEDS ORDERED: Magnesium Sulfate IV* 3 GM in NS 0.9% 100 ML* 100 ML IVPB ONE (07:23)
[2017-06-20] MEDS ORDERED: Aspirin 81 mg CHEW TAB* 81 MG TAB.CHEW PO ONE (07:39)
[2017-06-20] MEDS ORDERED: Atorvastatin* 40 MG TAB PO ONE (07:39)
[2017-06-20] MEDS ORDERED: Heparin DRIP 25,000 UNITS(*) 25,000 UNITS/500 ML BAG IV SCH ×2 (07:45→09:00)
[2017-06-20] MEDS ORDERED: Zolpidem TAB* 10 MG PO PRN (08:02)
[2017-06-20] MEDS ORDERED: Nitroglycerin TAB 0.4 MG* 0.4 MG TAB SL ONE (08:04)
[2017-06-20] MEDS ORDERED: Metoprolol Tartrate IV* 1 MG/ML 5 ML VIAL IV ONE (08:14)
--- NOTE | 2017-06-20 08:23 | RAD ---
INDICATION: Short of breath COMPARISON: February 24, 2017 TECHNIQUE: An AP portable view obtained at 0456 hours is submitted. FINDINGS: Bones/Soft Tissues: There are no acute bony findings. There are postoperative changes. Cardiomediastinal: There is an interval increase in size of the hepatic silhouette. Lungs: Interstitial and alveolar edema. Pleura: Small bilateral pleural effusions. Other: None IMPRESSION: VASCULAR CONGESTION WITH INTERSTITIAL AND ALVEOLAR EDEMA. GIVEN THESE DIFFUSE FINDINGS A SUPERIMPOSED INFECTIOUS INFILTRATE IS NOT EXCLUDED.
[2017-06-20] MEDS ORDERED: Nitroglycerin TAB 0.4 MG* 0.4 MG TAB ONE (08:30)
[2017-06-20] MEDS ORDERED: Atorvastatin* 80 MG TAB ONE (08:30)
[2017-06-20] MEDS ORDERED: Aspirin 81 mg CHEW TAB* 81 MG TAB.CHEW ONE (08:30)
[2017-06-20] MEDS ORDERED: Metoprolol Tartrate TAB* 50 mg ONE (08:31)
[2017-06-20] MEDS ORDERED: Heparin DRIP 25,000 UNITS(*) 25,000 UNITS/500 ML BAG ONE (08:31)
[2017-06-20] MEDS: Metoprolol Tartrate TAB* 50 mg PO SCH ×3 (08:39→21:39)
[2017-06-20] MEDS ORDERED: Cholecalciferol TAB* 1000 UNITS PO SCH (09:00)
[2017-06-20] MEDS ORDERED: Cyanocobalamin TAB* 500 MCG PO SCH (09:00)
[2017-06-20] MEDS ORDERED: Omeprazole CAP* 20 MG PO SCH (09:00)
[2017-06-20] MEDS ORDERED: Metoprolol Tartrate TAB* 50 mg PO SCH (09:00)
[2017-06-20] MEDS ORDERED: Folic Acid TAB* 1 MG PO SCH (09:00)
[2017-06-20] MEDS ORDERED: Heparin VIAL(*) 5000 UNITS/ML VIAL (FIVE THOUSAND) ONE (09:10)
[2017-06-20] MEDS ORDERED: Heparin VIAL(*) 5000 UNITS/ML VIAL (FIVE THOUSAND) IV SCH (10:00)
[2017-06-20 10:09] LABS: Urine Appearance Clear; Urine Blood 2+ (Negative); Urine Color Colorless; Urine Ketones Negative (Negative); Urine Protein Negative (Negative); Urine Specific Gravity 1.004 (1.010-1.030); Urine Urobilinogen Negative (Negative)
[2017-06-20] MEDS ORDERED: diPHENhydraMINE PO* 25 MG PO ONE (10:18)
[2017-06-20] MEDS ORDERED: Diazepam TAB(*) 5 MG PO ONE (10:18)
[2017-06-20] MEDS ORDERED: NS 0.9% 1000 ML* 1,000 ML IV SCH (10:30)
[2017-06-20] MEDS: Isosorbide Dinitrate TAB* 20 MG PO SCH ×2 (10:50→21:38)
[2017-06-20 11:05] LABS: ABS Basophils 0 10^3/ul (0-0.2); ABS Eosinophils 0 10^3/ul (0-0.6); ABS Lymphocytes 0.8 10^3/ul (1.0-4.8); ABS Monocytes 0.1 10^3/ul (0-0.8); ABS Neutrophils 5.8 10^3/ul (1.5-7.7); ABS Nucleated RBC 0 10^3/ul; Eosinophil % 0 % (0-6); Hematocrit 37 % (35-47); Lymphocyte % 11.5 % (25-47); Mean Corpuscular HGB Conc 33 g/dl (31-36); Mean Corpuscular Hemoglobin 29 pg (27-31); Mean Corpuscular Volume 89 fL (80-97); Mean Platelet Volume 8.6 um3 (7.4-10.4); Nucleated Red Blood Cells % 0; Platelet Count 288 10^3/ul (150-450); Red Blood Count 4.13 10^6/ul (4.0-5.4); Red Cell Distribution Width 16 % (10.5-15); White Blood Count 6.7 10^3/ul (3.5-10.8)
[2017-06-20 11:13] LABS: INR 1.08 (0.77-1.02)
[2017-06-20] MEDS ORDERED: Midazolam* 1 MG/ML 10 ML VIAL (10 MG) ONE (11:16)
[2017-06-20] MEDS ORDERED: fentaNYL* 50 MCG/ML 2 ML VIAL (100 MCG VIAL) ONE (11:16)
[2017-06-20] MEDS ORDERED: methylPREDNISolone 125 MG* 2 ML VIAL ONE (11:17)
[2017-06-20] MEDS ORDERED: Heparin(*) 1000 UNIT/ML 10 ML VIAL CATH LAB IV ONE (11:17)
[2017-06-20] MEDS ORDERED: diPHENhydraMINE IV* 50 MG/ML 1 ml VIAL (BENADRYL) ONE (11:17)
[2017-06-20] MEDS ORDERED: Lidocaine 2% (CARDIAC)* 20 MG/ML 5 ML SYRINGE (100 MG) ONE (11:17)
[2017-06-20] MEDS ORDERED: VERAPAMIL 2.5 MG/ML 2 ML VIAL ** 5 mg/2 ml ONE (11:17)
[2017-06-20] MEDS ORDERED: Iodixanol* (CONTRAST) 320 MG/ML 100 ML SDV ONE (11:18)
[2017-06-20] MEDS ORDERED: Heparin 2 UNITS/ML IVPREMIX* 2,000 ML IV ONE (11:18)
[2017-06-20] MEDS ORDERED: nitroGLYCERIN DRIP* 25,000 MCG/250 ML BTL ONE (11:18)
[2017-06-20] MEDS ORDERED: Lidocaine 1% INJ* 10 MG/ML 30 ML SDV ONE (11:19)
[2017-06-20 11:23] LABS: EGFR Non-African American 52.3 (>60)
--- NOTE | 2017-06-20 11:42 | HP ---
HISTORY AND PHYSICAL: DATE OF ADMISSION: 06/20/17 ADMITTING PROVIDER: Joao Arshad MD PRIMARY CARE PROVIDER: Kanu Bhardwaj MD CHIEF COMPLAINT: Shortness of breath and chest pain. HISTORY OF PRESENT ILLNESS: Romina Kahn is a 81-year-old female with past medical history of atrial tachycardia, CVA in 2013, rfz-srhbabc-jfptqkrul diabetes mellitus, hypertension who fell at home around 2:30 a.m. while daughter was assisting her to the bathroom. Neighbor had to be brought to help transfer back to the bed. Thirty minutes later, around 3 a.m. on the morning of admission, she started crying out help to her daughter who notes she seemed to be wheezing, coughing and not looking well. The patient asked for 2 aspirin stating that she had some chest pain. She then elaborated that she has been having chest pain on and off for the last several weeks, sometimes substernal, sometimes between her shoulder blades. She usually takes 3 regular aspirins, sits up in the bed and the pain goes away. On presentation to the emergency room, she was found to be tachycardic to above 180s. Initial EKG demonstrates left bundle-branch block, which on review of Dr. Arreguin's notes is chronic. Initial chest x-ray showed bilateral congestion. BNP was 281. She got diltiazem 20 mg IV push, slowed her down to about 110s and then Lasix 80 mg IV. A Weller was placed. Patient denies history of known CHF. Of note, she had previously been prescribed Eliquis by Dr. Arreguin in April 2016, though that was either stopped or patient even says they never even filled it. She did have an outpatient Holter or other arrhythmia monitor as an outpatient and nothing came of it per the daughter that she can recall. Patient specifically denied being on a blood thinner currently. Initial troponin in the ER was 5.60. She had blood pressure as high at 201/130 at 7 a.m. Last echocardiogram per Dr. Arreguin's notes 04/11/16 showed grade 2 diastolic dysfunction, EF of 55% to 60%; no echo in our system. I have talked to Dr. Davis, his consult on the case, and the patient is being started on heparin drip. The patient denies any abdominal pain, headaches. She has some short-term memory loss ever since her stroke in 2013. She has chronic paresthesias in her hands. Also has a history of rheumatoid arthritis, is on methotrexate. PAST MEDICAL HISTORY: Hypertension; hyperlipidemia; osteoarthritis, right shoulder; noninsulin-dependent diabetes mellitus; CVA in 2014; severe bilateral carotid artery stenosis, status post CEA bilaterally for 85% and 95% respectively; atrial tachycardia and dementia. MEDICATIONS: Include: 1. Metformin 500 mg daily. 2. Ropinirole 2 mg p.o. q.h.s. 3. Amlodipine 10 mg p.o. q.a.m. 4. Ambien 5 mg p.o. at bedtime. 5. Simvastatin 40 mg p.o. q.h.s. 6. Protonix 40 mg p.o. daily. 7. Lopressor 50 mg p.o. b.i.d. 8. Methotrexate 10 mg p.o. weekly. 9. Lisinopril/hydrochlorothiazide 20/25 mg daily. 10. Folic acid 1 mg p.o. daily. 11. Ergocalciferol 5000 international units p.o. daily. 12. Cyanocobalamin vitamin B12 2500 mcg p.o. q.a.m. 13. Vitamin D 2000 units p.o. daily. 14. Aspirin 81 mg daily. ALLERGIES: HYDROXYZINE, OXYCODONE, AMOXICILLIN, CLAVULANIC ACID. FAMILY HISTORY: Mother had 5 heart attacks and CABG, brother with heart disease , dad with COPD and prostate cancer. SOCIAL HISTORY: The patient is a never smoker, no drinker. Lives with her daughter, Sarah Kahn, who is her medical proxy. She desires to be a full code. REVIEW OF SYSTEMS: A complete 14-point review of systems is negative except as per HPI. She attests to some dry cough and daughter seems to think it gets worse when she lies down. She is poorly mobile, cannot state whether chest pain is more frequent with exertion or not. She falls frequently. PHYSICAL EXAMINATION GENERAL APPEARANCE: No acute distress. VITAL SIGNS: Blood pressure initially 166/110, was as high as 201/130, currently 179/109; heart rate initially 181, currently 120s, had been 80s when provider was in the room a few minutes ago; satting 97% on 4 L of oxygen; respiratory rate is 25 to 30. HEENT: Normocephalic, atraumatic. Pupils are equal, round and reactive to light. No scleral icterus. NECK: No cervical lymphadenopathy. Neck is supple. PULMONARY: Slight rales at right base. No rhonchi or wheezing. CARDIOVASCULAR: Regular rate and rhythm. No murmurs, rubs or gallops ABDOMEN: Soft, nontender, nondistended. EXTREMITIES: Warm and well perfused. Trace edema bilaterally. NEUROLOGIC: Cranial nerves II through XII intact. Attested paresthesias in her bilateral hands. Hip flexion intact 5/5, clock and watch assembler strength 4+/5 bilaterally. GENITOURINARY: The patient has a Weller draining clear yellow urine. SKIN: No lesions. No rashes. DIAGNOSTIC STUDIES/LABORATORY DATA: Initial white count 9.7, hemoglobin 12.6, hematocrit 39, platelets 269. INR 0.97. ABG: pH 7.37, pCO2 41, pO2 193, bicarb 99.4. Sodium 128, potassium 4.6, chloride 99, carbon dioxide 24, BUN 26 , creatinine 1.06, glucose 197. Lactic acid 1.6, magnesium 1.2, AST 63, ALT 15 , alk phos 80. Troponin 5.60, BNP 281. Albumin 3.8. Imaging: Chest x-ray official read pending but with diffuse vascular congestion , interstitial edema, left worse than right per my read. EKG with left bundle-branch block, initially tachycardic to 127, T-wave inversions in V6, Q waves in lead III, QRS 123, also T-wave inversions in I and aVL. Second EKG also left bundle-branch block with sinus rhythm, heart rate 86 , T-wave inversions in V6, I and aVL. Q waves in III. IMPRESSION: Romina Kahn is a 81-year-old female presenting with several weeks of angina like chest pain. She has been self-medicating with 3 regular- strength aspirin. She has not told anyone about these problems. She is presenting with atrial tachycardia, hypertensive urgency, chest pain, recent fall, elevated troponin of 5.60. PLAN: I talked to Dr. Donaldo Davis of Cardiology for consultation. It does not seem like patient is currently taking Eliquis, maybe never did. She is being put on a heparin drip and given atorvastatin 80 mg. I am going to give her some IV Lopressor now, continue metoprolol 50 b.i.d. to try to get her heart rate better controlled, give her nitroglycerin sublingual and she is currently chest pain free. She is going to go to the ICU tele monitor. Follow up Cardiology recommendations, try to get Dr. Arreguin's outpatient notes. I will put her in for sliding scale insulin, get an A1c, order metformin. Continue her lisinopril. Hold her hydrochlorothiazide and give Lasix as necessary. Get a stat echocardiogram to detect any regional wall motion abnormalities, assess her ejection fraction and valvular function. She does have a history of grade 2 diastolic dysfunction and preserved ejection fraction in March 2016. We will continue aspirin 81 mg tomorrow. She is a full code. Medical surrogate is daughter Sarah Kahn. She is n.p.o. for now. [id number]/[facility] #: [id number]
[2017-06-20] MEDS ORDERED: Furosemide IV* 10 MG/ML VIAL (40 MG) IV SCH (13:00)
--- NOTE | 2017-06-20 13:25 | CONS ---
CC: Dr. Bhardwaj * CARDIOLOGY CONSULTATION REPORT: DATE OF CONSULT: 06/20/17 INDICATION FOR CONSULT: Atrial tachycardia, chest pain, abnormal troponin. HISTORY OF PRESENT ILLNESS: The patient is a 81-year-old female with a history of atrial tachycardia, history of diabetes, CVA, carotid stenosis, known left bundle branch block, who came to the hospital because of chest pain and cough. The patient was not feeling well for the past week or so. She had been having intermittent episodes of chest pain. She also had been feeling weak and tired. The patient was very difficult to get a history from, the patient's daughter states that she went to see the patient last evening and the patient did not look well, she was having trouble breathing and decided to call the ambulance. On arrival of the ambulance, the patient was in atrial tachycardia at 120 beats a minute. The patient was placed on oxygen and transported to the emergency room. On arrival to the emergency room, the patient was feeling better, she was given some diltiazem to slow down her heart rate. The patient did not describe any chest pain to the emergency room physician. The patient did report cough and shortness of breath. The patient's initial EKG demonstrated atrial tachycardia with a left bundle branch block. Her chest x-ray was consistent with congestive heart failure. The patient subsequently converted to normal sinus rhythm at 60 beats per minute. The patient's initial troponin level was 5, a repeat troponin level was 11. The patient had an echocardiogram that was going on right now that did show anterior wall motion severe hypokinesis to the anterior wall. PAST MEDICAL HISTORY: Hypertension, restless legs syndrome, pancreatic insufficiency, carotid stenosis, CVA, hyperlipidemia, diabetes, left bundle branch block, and rheumatoid arthritis. PAST SURGICAL HISTORY: Knee replacement surgery, shoulder surgery, carotid endarterectomy, and cholecystectomy. MEDICATIONS: Outpatient medications: 1. Amlodipine 10 mg a day. 2. Metformin 500 mg once a day. 3. Metoprolol tartrate 50 mg b.i.d. 4. Lisinopril/hydrochlorothiazide 20/25 once a day. 5. Methotrexate 10 mg weekly. 6. Requip 1 mg at night. 7. Simvastatin 40 mg a day. 8. Pantoprazole 40 mg. 9. Aspirin 81 mg a day. ALLERGIES: To HYDROXYZINE, CONTRAST DYE, OXYCODONE. FAMILY HISTORY: Her brother has had multiple cardiac catheterizations and stents, his earliest was at age 62. SOCIAL HISTORY: She lives alone. She denied tobacco or alcohol. Her daughter is closely involved in her care. PHYSICAL EXAM: Height is 5 feet and 3 inches, weight is 160 pounds. Temperature 97, heart rate is 70, blood pressure 143/101, respiratory rate is 22 , oxygen saturation 100% on 2 L. Sclerae anicteric. Oropharynx is pink without erythema. Carotids are 2+ with soft bilateral bruits. JVD is normal. Thyroid is normal. Cardiac Exam: S1, S2 without any murmurs, rubs, or gallops. Lungs have mild rales at the bases. There is no dullness to percussion. Upper lung matias are clear. Abdomen is soft, nontender, nondistended with normoactive bowel sounds. Extremities show no edema. She has 2+ pulses throughout. The patient is awake, alert, and oriented. She moves all 4 extremities equally. DIAGNOSTIC STUDIES/LAB DATA: Chemistry: Sodium 128, BUN 26, creatinine 1.06 which is essentially at her baseline. AST and ALT are normal. Initial troponin 5.6, second troponin 11.6. BNP 281. Total cholesterol 155, LDL 78, HDL of 64. INR is 0.97. EKG demonstrates normal sinus rhythm with left bundle branch block. IMPRESSION: This is a 81-year-old female with history of atrial tachycardia was admitted to the hospital with atrial tachycardia and congestive heart failure. The patient was describing some episodes of chest pain; however, it is difficult to get a true story from the patient as to what the character of the chest discomfort is. The patient did have a positive troponin level at 5.6 and then subsequently at 11. I think the patient had an acute coronary syndrome associated with her atrial tachycardia and congestive heart failure. Her echocardiogram shows significant anterior wall motion abnormality, it is different from an echocardiogram back in 2017. RECOMMENDATIONS: For now, my recommendation is the patient continues on heparin , continue on beta blockers. The patient is already on an aspirin and statin therapy. The patient will undergo cardiac catheterization. The risks and benefits of this were described in great detail. I did ask the patient and her daughter directly if she has any contrast allergy , they are denying that; however, in the computer record, there is a CONTRAST allergy. The patient will be treated with Solu-Medrol prior to the procedure. [id number]/[facility] #: [id number] MTDD
[2017-06-20] MEDS: Heparin VIAL(*) 5000 UNITS/ML VIAL (FIVE THOUSAND) SUBCUT SCH ×2 (14:14→21:38)
--- NOTE | 2017-06-20 17:00 | ECHO ---
Patient: T[facility] Rec#: [id number] : 1935 Date: 06/20/2017 Age: 81y Height: 154.9 cm / 61.0 in Weight: 72.6 kg / 160.0 lbs Sex: F BSA: 1.7 Room#: ICU 9 Admit Date#: 06/20/2017 Type: Inpatient Referring: Joao Arshad Reading: Donaldo Davis MD Systems Software Manager: Maribel Perry RN RDCS CC: Kanu Bhardwaj MD Transthoracic Echocardiogram Indication: NSTEMI, CHF BP: 179/109 HR: 70 Rhythm: NSR Findings History: CAD, HTN, HLD, DM, LBBB, carotid endarterectomy, CVA, RA, GERD, atrial tachycardia Technical Comments: The study quality is fair. The study is technically limited due to patient body habitus. Left Ventricle: The left ventricular chamber size is normal. Mild concentric left ventricular hypertrophy is observed. There are multiple regional wall motion abnormalities. There is moderate to severely decreased left ventricular systolic function. The estimated ejection fraction is 25-30%. Abnormal left ventricular diastolic function is observed. The mid anterior, mid inferior, apical lateral, and apical inferior wall segments are hypokinetic (score 2). The apical anterior wall segment is akinetic (score 3). Overall wallmotion score index is 2.20 Left Atrium: The left atrium is mild to moderately dilated. Right Ventricle: Moderator Band present. The right ventricular cavity size is normal. The right ventricular global systolic function is mildly reduced. Right Atrium: The right atrial cavity size is normal. Aortic Valve: The aortic valve is trileaflet. The aortic valve leaflets are mildly thickened. There is aortic annular calcification. There is a trace of aortic regurgitation. There is no evidence of aortic stenosis. Mitral Valve: Moderate mitral annular calcification present. The mitral valve leaflets are mildly thickened. There is moderate mitral regurgitation. Could be severe in some views There is no evidence of mitral stenosis. Tricuspid Valve: The tricuspid valve leaflets are normal. There is moderate tricuspid regurgitation. There is evidence of moderate pulmonary hypertension. There is no tricuspid stenosis. Pulmonic Valve: The pulmonic valve appears normal. There is mild pulmonic regurgitation. There is no pulmonic stenosis. Pericardium: There is no significant pericardial effusion. A pericardial fat pad is visualized. Aorta: There is no dilatation of the ascending aorta. The aortic arch is not well visualized. There is no dilation of the aortic root. Pulmonary Artery: The main pulmonary artery is not well visualized. Venous: The inferior vena cava appears normal in size. There is an approximate 50% respiratory change in the inferior vena cava dimension. Conclusions Mild concentric left ventricular hypertrophy is observed. There is moderate to severely decreased left ventricular systolic function. There are multiple regional wall motion abnormalities. The estimated ejection fraction is 25-30%. The mid anterior, mid inferior, apical lateral, and apical inferior wall segments are hypokinetic (score 2). The apical anterior wall segment is akinetic (score 3). The right ventricular global systolic function is mildly reduced. There is a trace of aortic regurgitation. There is moderate mitral regurgitation. Could be severe in some views There is moderate tricuspid regurgitation. There is evidence of moderate pulmonary hypertension. There is no significant pericardial effusion. Compared to study of 2016, the LV dysfunction is new Measurements Name Value Normal Range RVDdMajor (2D) 3.5 cm (2.2 - 4.4) RAd ISD 4CH 4.8 cm (3.4 - 4.9) RA (A4C)W 4.1 cm (2.9 - 4.6) IVSd (2D) 1.2 cm (0.6 - 1) LVPWd (2D) 1.1 cm (0.6 - 1) LVIDd (2D) 4 cm (3.6 - 5.4) LVIDs (2D) 3.4 cm - LV FS (2D) 15 % (25 - 45) Aortic Annulus 1.8 cm (1.4 - 2.6) Ao root diameter (2D) 2.2 cm (2.1 - 3.5) Ascending Ao 2.9 cm (2.1 - 3.4) LA dimension (AP) 2D 4.5 cm (2.3 - 3.8) LAd ISD 4CH 5.6 cm (2.9 - 5.3) LA ISD 4CH W 4.8 cm (2.5 - 4.5) Name Value Normal Range LA ESV SP 4CH (A/L) 79 ml - LA ESV SP 2CH (A/L) 37 ml - LA ESV BP (A/L) 55 ml - LA ESV BP (A/L) index 32 ml/m2 - LA ESV SP 4CH (MOD) 75 ml - LA ESV SP 2CH (MOD) 36 ml - Name Value Normal Range MV E-wave Vmax 1.3 m/sec - MV deceleration time 189 msec - MV A-wave Vmax 0.69 m/sec - MV E:A ratio 1.8 ratio - LV septal e' Vmax 0.04 m/sec - LV lateral e' Vmax 0.07 m/sec - LV E:e' septal ratio 32.5 ratio - LV E:e' lateral ratio 18.6 ratio - Name Value Normal Range AV Vmax 1.2 m/sec - AV VTI 22.8 cm - AV peak gradient 5.7 mmHg - AV mean gradient 2.7 mmHg - LVOT Vmax 0.68 m/sec - LVOT VTI 14 cm - LVOT peak gradient 1.9 mmHg - LVOT mean gradient 1 mmHg - Name Value Normal Range MV Vmax 1.4 m/sec - MV VTI 31.4 cm - MV peak gradient 7.5 mmHg - MV mean gradient 2.5 mmHg - MV PHT 62 msec - MVA (PHT) 3.6 cm2 - Name Value Normal Range TR Vmax 3.2 m/sec - TR peak gradient 41 mmHg - RAP 8 mmHg - RVSP 49 mmHg - IVC diameter 1.8 cm - Name Value Normal Range PV Vmax 0.62 m/sec - Wallmotion BAS Not Seen BA Not Seen BAL Not Seen NIC Not Seen BI Not Seen BIS Not Seen MAS Not Seen MA Hypokinetic MAL Not Seen MIL Not Seen CT Hypokinetic MIS Not Seen Not Seen AA Akinetic AL Hypokinetic AI Hypokinetic APEX Akinetic
[2017-06-20] MEDS ORDERED: rOPINIRole TAB* 1 MG PO SCH (21:00)
--- NOTE | 2017-06-20 21:19 | DS ---
DISCHARGE SUMMARY: DATE OF ADMISSION: 06/20/17 DATE OF DISCHARGE: 06/21/17 ADMITTING AND ATTENDING PROVIDER: Joao Arshad MD CONSULTING CLASSROOM TECHNOLOGY TECHNICIAN: Donaldo Davis MD PRIMARY CARE PHYSICIAN: Kanu Bhardwaj MD RECEIVING DOCTOR: Dr. Barajas of [facility]. OUTPATIENT CLASSROOM TECHNOLOGY TECHNICIAN: Dr. Arreguin of [place]. CHIEF COMPLAINT: Shortness of breath, chest pain. PRINCIPAL DIAGNOSIS: Non-ST elevation myocardial infarction with 3-vessel coronary artery disease; acute congestive heart failure exacerbation. HISTORY OF PRESENT ILLNESS AND HOSPITAL COURSE: Romina Kahn is a 81-year-old female with past medical history of atrial tachycardia, CVA (2013), non-insulin - dependent diabetes mellitus, hypertension, who fell on the morning of admission and soon after started to cry out to help given shortness of breath, coughing, wheezing after she had been transferred to her bed by daughter and neighbor. The patient then requested 3 aspirin (she was given 2) stating that she was having chest pain. In fact, this chest pain was becoming on and off for the last several weeks, often substernally, sometimes between her shoulder blades. She presented to the emergency room, was found to be tachycardic in the 180s. EKG showed left bundle- branch block. On reviewing Dr. Arreguin's notes indicate this is a chronic left bundle-branch block. Her chest x-ray showed bilateral congestion. BNP was elevated at 281. She was given diltiazem 20 IV push and Lasix 80 mg IV. Her initial troponins were 5.6. She was started on a heparin drip. Cardiology consultation with Dr. Davis was performed. She had a transthoracic echocardiogram, which showed reduced ejection fraction of 25% to 30% compared to 55% to 60% in March 2016. She had mid anterior, mid inferior, and apical lateral and apical inferior wall segments hypokinesis and apical and anterior wall akinesis. There was also moderate mitral valve regurgitation, which could be severe in some views, moderate tricuspid regurgitation, evidence of moderate pulmonary hypertension with RVSP of 49 mmHg. There is trace aortic regurgitation. Second troponin was 11.6. The patient was taken to dental laboratory manager with Dr. Davis and found to have left main 70%, mid LAD 50%, ostial 50%, PDA 80%, and recommended transfer for CABG that was arranged with Dr. Barajas of [facility]. The patient is being discharged very early hospital day #2 with nothing to eat after midnight for potential surgery later that day. Of note, the patient was not on any blood thinners. Previously had perhaps been trialed on Eliquis though does not recall ever to feeling that for her history of atrial tachycardia. She had a history of either Holter or other event monitor back in 2017, but daughter did not recall anything of significance. The patient's final troponin in the morning was 25.5. She has been chest pain-free. Other medication changes include holding her amlodipine 10 on admission and her lisinopril 20/25 hydrochlorothiazide. She was started on Isordil and Lasix, got additional 40 IV in the afternoon hospital day #1. She is being discharged on lisinopril, Isordil, Lasix, atorvastatin, metoprolol and aspirin. Heparin drip was stopped per Dr. Davis. The patient has been satting high 90s on 2 L without respiratory distress. Her A1c was 6.2. Her LDL is 78, HDL was 65. Creatinine 1.0. GFR 50 to 52. DISCHARGE MEDICATIONS: Include: 1. Aspirin 81 mg daily. 2. Cholecalciferol 2000 units p.o. daily. 3. Cyanocobalamin 2500 mcg p.o. q.a.m. 4. Folic acid 1 mg p.o. daily. 5. Isosorbide dinitrate 20 mg p.o. b.i.d. (new) 6. Metoprolol tartrate 50 mg p.o. b.i.d. 7. Protonix 40 mg p.o. daily. 8. Ropinirole 2 mg p.o. q.h.s. 9. Ambien 5 mg p.o. q.h.s. 10. Atorvastatin 80 mg p.o. q.h.s. (new, substitute for simvastatin 40) 11. Ergocalciferol 50,000 units p.o. weekly. 12. Lasix 40 mg p.o. daily (new). 13. Lisinopril 20 mg daily (used to be combined with hydrochlorothiazide). 14. Metformin 500 mg p.o. daily. 15. Methotrexate 10 mg p.o. weekly DISCHARGE DIET: carbohydrate consistent heart healthy. ACTIVITY LEVEL: No restrictions. FOLLOWUP: The patient is being discharged to get CABG at [facility] with Dr. Barajas on 06/21/17. She should follow up with Dr. Arreguin, outpatient gravel weigher, upon discharge along with Dr. Kanu Bhradwaj and Dr. Negro. TIME SPENT: On discharge 40 minutes. [id number]/[facility] #: [id number] MTDD
[2017-06-21 05:28] VITALS: BP 147/67
[2017-06-21] MEDS ORDERED: Aspirin EC TAB* 81 MG TAB.EC PO SCH (09:00)
--- NOTE | 2017-06-21 12:00 | CATH ---
CC: Dr. Kanu Bhardwaj; Dr. William Barajas, [facility] CARDIAC CATHETERIZATION: DATE OF PROCEDURE: 06/20/17 PROCEDURE: Cardiac catheterization including left heart catheterization, coronary angiography, right wrist femoral artery catheterization. INDICATION: NSTEMI, congestive heart failure. The patient is a 81-year-old female with a history atrial tachycardia who has been having a couple of weeks of indeterminate chest pain. The patient's daughter said that yesterday afternoon the patient appeared very short of breath and uncomfortable. She went to check on her later in the evening and seemed worse and decided to call the ambulance. On arrival, the patient was in an atrial tachycardia at 120 beats a minute. She was given IV Cardizem and Lasix and converted back to normal sinus rhyth m. This morning, the patient was essentially asymptomatic. She was not short of breath. She denied any chest pain. The patient had elevated troponin levels. Her peak troponin level was 11. An echoc ardiogram showed significant akinesis to the apex and hypokinesis to the anterior wall. Ejection frac tion is approximately 30%. Cardiac catheterization was recommended. DESCRIPTION OF PROCEDURE: The patient was brought to the cardiac catheterization lab in a fasting st ate. Informed consent had been obtained prior to the procedure. All labs have been reviewed. The pa osmin had a listed allergy to IV CONTRAST DYE although the patient denied this. Patient was given on e dose of Solu-Medrol IV 125 mg. The patient was placed supine on the procedure table. Her right wr ist radial area and femoral areas were cleaned and draped in the usual fashion. 1% lidocaine was use d for local anesthesia. The right radial artery was entered by a Seldinger technique and a guidewire was placed. Over the guidewire, a 6-Gibraltarian hydrophilic sheath was used and a guidewire was advanced up to the aortic arch. A TIG catheter was attempted to be advanced to the aortic sinuses, but becau se of the tortuosity of the right subclavian vein and aorta, it was unable to be manipulated once I g ot there. A JR4 catheter and JL3.5 catheter were attempted, but could not engage the coronary arteri es. The right radial approach was abandoned and moved to the femoral artery. The femoral artery was entered by a modified Seldinger technique and a 6-Gibraltarian sheath introduced in this place. The ricardo ent underwent coronary angiography using a 6-Gibraltarian JL4 catheter and a 6-Gibraltarian JR4 catheter. At the end of the procedure, an angiogram of the femoral artery demonstrated normal position of the cathete r and a Mynx closure device was deployed. The patient tolerated the procedure well. There were no c omplications. A total of 18 minutes of fluoro time was used. A total of 100 cc of Visipaque dye was used. FINDINGS: Hemodynamics: Central aortic blood pressure 135/61 with a mean of 90. Left ventricular pr essure 140/16 with an end-diastolic pressure of 18. CORONARY ARTERIES: 1. Left main: The left main was heavily calcified with a critical stenosis of t he ostium of the left vein. There was significant dampening of the catheter on engagement of the lef t main artery. There was approximately 80% stenosis at the ostium of the left main. 2. Left anterior descending: The LAD was normal in size. It gave off 2 diagonal vessels. The mid LAD had an eccentric 50% stenosis to the LAD. The remainder of the vessel was without significant di sease. 3. Left circumflex artery: The left circumflex artery was normal in size. It gave off 2 obtuse mar ginal branches. There is no evidence of stenosis. 4. Right coronary artery: The RCA was a dominant vessel, it gave off the PDA. The ostium of the rig ht coronary artery had a 50% stenosis with mild calcification. The mid right coronary artery had 30% stenosis. The remainder of the right coronary artery was without disease. The PDA had a proximal 80 % stenosis. The remainder of the vessel was without disease. IMPRESSION: 1. Unsuccessful radial artery catheterization due to tortuosity of the subclavian artery. 2. Successful femoral artery catheterization. 3. Critical stenosis of the ostium of the left main artery with heavy calcification. 4. Moderate disease of the left anterior descending and right coronary artery. 5. Mynx closure device to the right femoral artery. RECOMMENDATION: The patient will be evaluated for appropriateness of coronary artery bypass surgery. The patient is not a candidate for stent therapy. [id number]/[facility] #: [id number]
[2017-06-21] MEDS ORDERED: Atorvastatin* 80 MG TAB PO SCH (17:00)
--- NOTE | 2017-07-11 05:27 | ED ---
Progress - Progress Note Progress Note: I assumed care from Dr. Perez. Is pending hospital admission chest pain, respiratory failure and elevated troponin. She will be anticoagulated and treated for her blood pressure. Consult was made with Dr. Arshad who will evaluate in the ER and admit. Re-Evaluation - Re-Evaluation First Eval Re-Evaluation Time: 04:53 Comment: HR decreased. Course/Dx - Diagnoses Provider Diagnoses: Respiratory failure, CHF (congestive heart failure), Chest pain - Provider Notifications Instructed by Provider To: Admit As Inpatient - Critical Care Time Critical Care Time: 30-74 min - 30 minutes of critical care time is exclusive of separately billable procedures Discharge - Sign-Out/Discharge Documenting (check all that apply): Discharge/Admit/Transfer - Discharge Plan Condition: Guarded Disposition: ADMITTED TO [facility] - Billing Disposition and Condition Condition: GUARDED [place] [facility]
== END 2017-06-21 05:15 | disposition short-term general hospital (02) | DRG 280 ==
LOC: ED 04:35 → ICU 08:27
PROVIDERS: ADMIT Internal Medicine; ATTEND Internal Medicine
PROC: B211YZZ Fluoroscopy of Multiple Coronary Arteries using Other Contrast (ICD-10-PCS; 2017-06-20)
PROC: 5A09357 Assistance with Respiratory Ventilation, Less than 24 Consecutive Hours, Continuous Positive Airway Pressure (ICD-10-PCS; 2017-06-20)
PROC: 4A023N7 Measurement of Cardiac Sampling and Pressure, Left Heart, Percutaneous Approach (ICD-10-PCS; principal; 2017-06-20 11:30)
DX: I21.4 Non-ST elevation (NSTEMI) myocardial infarction (principal); I50.23 Acute on chronic systolic (congestive) heart failure; I47.1 Supraventricular tachycardia; E11.9 Type 2 diabetes mellitus without complications; I44.7 Left bundle-branch block, unspecified; R20.2 Paresthesia of skin; M06.9 Rheumatoid arthritis, unspecified; M19.011 Primary osteoarthritis, right shoulder; E78.5 Hyperlipidemia, unspecified; I65.23 Occlusion and stenosis of bilateral carotid arteries; R29.6 Repeated falls; F03.90 Unspecified dementia, unspecified severity, without behavioral disturbance, psychotic disturbance, mood disturbance, and anxiety; I16.0 Hypertensive urgency; I11.0 Hypertensive heart disease with heart failure; I25.10 Atherosclerotic heart disease of native coronary artery without angina pectoris; K21.9 Gastro-esophageal reflux disease without esophagitis; Z96.653 Presence of artificial knee joint, bilateral; Z96.1 Presence of intraocular lens; G25.81 Restless legs syndrome; K86.89 Other specified diseases of pancreas; W19.XXXA Unspecified fall, initial encounter; I08.1 Rheumatic disorders of both mitral and tricuspid valves; I27.20 Pulmonary hypertension, unspecified; I08.3 Combined rheumatic disorders of mitral, aortic and tricuspid valves; I69.311 Memory deficit following cerebral infarction; Z88.5 Allergy status to narcotic agent; Z88.0 Allergy status to penicillin; Z88.1 Allergy status to other antibiotic agents; Z88.8 Allergy status to other drugs, medicaments and biological substances; Z82.49 Family history of ischemic heart disease and other diseases of the circulatory system; Z80.42 Family history of malignant neoplasm of prostate; Z82.5 Family history of asthma and other chronic lower respiratory diseases; Z90.49 Acquired absence of other specified parts of digestive tract; Z98.42 Cataract extraction status, left eye; Z98.41 Cataract extraction status, right eye; Z91.041 Radiographic dye allergy status; Y92.009 Unspecified place in unspecified non-institutional (private) residence as the place of occurrence of the external cause; Z79.82 Long term (current) use of aspirin; Z79.84 Long term (current) use of oral hypoglycemic drugs
CPT/HCPCS: 36415; 71045; 80048; 80053; 80061; 81003; 81015; 82803; 83036; 83605; 83735; 83880; 84484; 85025; 85610; 85730; 87641; 93005; 93306; 93458; 99156; 99157; 99291; A9270-GY; C1760; J0153; J1200; J1644; J1940; J2250; J2930; J3010; J3475; J3490

== ENCOUNTER 2018-06-29 09:49 | Inpatient (IN) | payer MEDICARE ==
--- NOTE | 2018-06-29 10:26 | ED ---
Dizziness - HPI Summary HPI Summary: This patient is an 83 year old female presenting to [facility] with a chief complaint of dizziness. The patient reports hypertension, weakness, cough and nausea. She has had the cough for several weeks. The patient woke up 4 hours ago with symptoms, per her daughter. The patient states she could not walk by herself. Pt denies any fever, chills, erythema of eyes, sore throat, CP, SOB, abdominal pain, Vomiting, dysuria, hematuria, myalgia, edema, or rash. Patient reports a Hx of triple cardiac bypass one year ago. Blood pressure in the room is 187/47 and her HR is 85 BPM Metoprolol Tartrate TAB* [Lopressor TAB*] 50 mg PO BID 03/14/14 [History Confirmed 03/26/18] Zolpidem TAB* [Ambien*] 5 mg PO BEDTIME PRN 03/14/14 [History Confirmed 03/26/18 ] Pantoprazole TAB * [Protonix TAB*] 40 mg PO DAILY 06/20/17 [History Confirmed ] rOPINIRole TAB* [Requip TAB*] 2 mg PO BEDTIME 06/20/17 [History Confirmed ] Cholecalciferol TAB* [Vitamin D TAB*] 5,000 units PO DAILY 03/26/18 [History Confirmed 03/26/18] Cyanocobalamin TAB* [Vitamin B12 TAB*] 1,000 mcg PO DAILY 03/26/18 [History Confirmed 03/26/18] Folic Acid TAB* [Folvite TAB*] 1 mg PO QAM 03/26/18 [History Confirmed 03/26/18] Losartan TAB* [Cozaar TAB*] 50 mg PO DAILY 03/26/18 [History Confirmed 03/26/18] - History Of Current Complaint Chief Complaint: EDHypertension Stated Complaint: WEAKNESS PER EMS Time Seen by Provider: 06/29/18 10:09 Hx Obtained From: Patient Severity Initially: Moderate Severity Currently: Moderate Character: Room Spinning, Dizzy Associated Signs And Symptoms: Positive: Nausea. Negative: Vomiting, Chest Pain , SOB, Fever, Chills - Allergies/Home Medications Allergies/Adverse Reactions: Allergies Allergy/AdvReac Type Severity Reaction Status Date / Time hydroxyzine Allergy Unknown Verified 06/20/17 05:02 Reaction Details Iodinated Contrast- Oral and AdvReac Severe Diarrhea Verified 06/20/17 05:02 IV Dye oxycodone AdvReac Severe Nausea And Verified 06/20/17 05:02 Vomiting amoxicillin [From Augmentin] AdvReac Intermediate Nausea And Verified 06/20/17 05:02 Vomiting clavulanic acid AdvReac Intermediate Nausea And Verified 06/20/17 05:02 [From Augmentin] Vomiting PMH/Surg Hx/FS Hx/Imm Hx Endocrine/Hematology History: Reports: Hx Diabetes - TYPE ll Cardiovascular History: Reports: Hx Coronary Artery Disease - CAROTID ENDARTERECTOMY 2013, Hx Hypertension, Other Cardiovascular Problems/Disorders - HIGH CHOLESTEROL, LBBB, SEE COMMENT GI History: Reports: Hx Gastroesophageal Reflux Disease - ON PROTONIX DAILY, Hx Hiatal Hernia - HISTORY OF, Other GI Disorders - CHOLECYSTECTOMY, ABD HERNIA REPAIR, PANCREATITIS, HIGH CHOLESTEROL History: Reports: Other Problems/Disorders - STRESS INCONTINENCE WITH COUGHING/SNEEZING Musculoskeletal History: Reports: Hx Arthritis - RIGHT SHOULDER, KNEES, Other Musculoskeletal History - PRIMARY OSTEOARTHRITIS, RIGHT SHOULDER, BILAT TKR, FX HUMERUS Sensory History: Reports: Hx Cataracts, Hx Contacts or Glasses - GLASSES Denies: Hx Hearing Aid Opthamlomology History: Reports: Hx Cataracts, Hx Contacts or Glasses - GLASSES Neurological History: Denies: Other Neuro Impairments/Disorders - RESIDUAL - Cancer History Hx Chemotherapy: No - Surgical History Surgery Procedure, Year, and Place: 05/2001 CHOLECYSTECTOMY- [facility]. 2003 ADB HERNIA REPAIR- [facility]. 2004 LEFT TKR- [facility]. 2005 RIGHT TKR- [facility]. 2013 BILATERAL CAROTID ENDARTERECTOMY- [facility]. 02/2014 ORIF FX LEFT HUMERUS- [facility]. 05/2015 BILATERAL CATARACT EXTRACTION WITH IOL IMPLANT- [facility] [place] Hx Anesthesia Reactions: No Infectious Disease History: No Infectious Disease History: Denies: Hx Clostridium Difficile, Hx Hepatitis, Hx Human Immunodeficiency Virus (HIV), Hx of Known/Suspected MRSA, Hx Shingles, Hx Tuberculosis, History Other Infectious Disease, Traveled Outside the [place] in Last 30 Days - Family History Known Family History: Positive: Cardiac Disease - Social History Alcohol Use: None Substance Use Type: Reports: None Hx Tobacco Use: No Smoking Status (MU): Never Smoked Tobacco Have You Smoked in the Last Year: No Review of Systems Negative: Fever, Chills Negative: Erythema Negative: Sore Throat Cardiovascular: Other - Hypertension Negative: Chest Pain Positive: Cough. Negative: Shortness Of Breath Positive: Nausea. Negative: Abdominal Pain, Vomiting Negative: dysuria, hematuria Negative: Myalgia, Edema Positive: Rash Neurological: Other - Dizziness Positive: Weakness All Other Systems Reviewed And Are Negative: No Physical Exam - Summary Physical Exam Summary: Constitutional: Well-developed, Well-nourished, Alert. (-) Distressed Skin: Warm, Dry HENT: Normocephalic; Atraumatic Eyes: Conjunctiva normal Neck: Musculoskeletal ROM normal neck. (-) JVD, (-) Stridor, (-) Tracheal deviation Cardio: Rhythm regular, rate normal, Heart sounds normal; Intact distal pulses; The pedal pulses are 2+ and symmetric. Radial pulses are 2+ and symmetric. (-) Murmur Pulmonary/Chest wall: Effort normal. (-) Respiratory distress, (-) Wheezes, (-) Rales Abd: Soft. (-) Tenderness, (-) Distension, (-) Guarding, (-) Rebound Musculoskeletal: (-) Edema Lymph: (-) Cervical adenopathy Neuro: Alert, Oriented x3, Strength normal, Cranial nerves II-XII are grossly intact. (-) Dysmetria, (-) Nystagmus, (-) Ataxia by finger to nose testing, (-) Sensory deficit. Irmo hallpike test positive to the left. Psych: Mood and affect Normal GCS: 15 Triage Information Reviewed: Yes Vital Signs On Initial Exam: Initial Vitals Temp Pulse Resp BP Pulse Ox 98.4 F 90 17 192/127 98 06/29/18 09:54 06/29/18 09:54 06/29/18 09:54 06/29/18 09:54 06/29/18 09:54 Vital Signs Reviewed: Yes Diagnostics - Vital Signs Vital Signs Temp Pulse Resp BP Pulse Ox 06/29/18 09:54 98.4 F 90 17 192/127 98 - Laboratory Result Diagrams: 07/05/18 05:55 07/05/18 05:55 Lab Statement: Any lab studies that have been ordered have been reviewed, and results considered in the medical decision making process. - CT Brain CT Interpretation Completed By: Radiologist Summary of CT Findings: 1. No evidence for acute intracranial abnormality. 2. Atrophy and findings suggestive of moderate chronic small vessel ischemic changes. ED Provider has reviewed this report. - EKG 0959 Cardiac Rate: NL - 85 BPM EKG Rhythm: Sinus Rhythm Summary of EKG Findings: LBBB National Institutes Of Health - NIH Scale Level of Consciousness: Alert/Keenly Responsive Ask Patient the Month and His/Her Age: Both Correct Ask Pt to Open/Close Eyes and Kitchen Lead/Release Non-Paretic Hand: Both Correctly Best Gaze (Only Horizontal Eye Movement): Normal Visual Field Testing: No Visual Loss Facial Paresis-Pt to Smile & Close Eyes or Grimace Symmetry: Normal/Symmetrical Motor Function - Right Arm: No Drift-Holds 10 Seconds Motor Function - Left Arm: No Drift-Holds 10 Seconds Motor Function - Right Leg: No Drift-Holds 10 Seconds Motor Function - Left Leg: No Drift-Holds 10 Seconds Limb Ataxia-Must be out of Proportion to Weakness Present: Absent Sensory (Use Pinprick to Test Arms/Legs/Trunk/Face): Normal Best Language (Describe Picture, Name Items): No Aphasia Dysarthria (Read Several Words): Normal Extinction and Inattention: No Abnormality Total Score: 0 Re-Evaluation - Re-Evaluation First Eval Re-Evaluation Time: 14:55 Comment: Discussed results and plan for admission with patient. Dizzy Course/Dx - Course Course Of Treatment: This patient is an 83 year old female presenting to [facility] with a chief complaint of dizziness. Vital signs and home medications reviewed. Physical exam was remarkable for a positive kat hallpike test to the left. No documented Hx of CHF, BNP was elevated at 1003 H. There are safety concerns about this patient returning home because she cannot ambulate. Attempted to reach her personal standard machine stitcher Dr. Davis but he was unavailable. A plan for admission was discussed with the patient and she was agreeable with this plan. Dr. Carbajal [facility] accepted the patient for admission. - Diagnoses Provider Diagnoses: Congestive heart failure (CHF), Peripheral vertigo Discharge - Sign-Out/Discharge Documenting (check all that apply): Patient Departure - Admission - Discharge Plan Condition: Improved Disposition: ADMITTED TO [facility] - Billing Disposition and Condition Condition: IMPROVED Disposition: Admitted to [facility] - Attestation Statements Document Initiated by Scribe: Yes Documenting Scribe: Juan C Malcolm Provider For Whom Scribe is Documenting (Include Credential): Jeffery [place], MD Scribe Attestation: I, Juan C Malcolm, scribed for Jeffery Oliveira MD on 07/06/18 at 0800. Scribe Documentation Reviewed: Yes Provider Attestation: The documentation as recorded by the scribe, Juan C Malcolm accurately reflects the service I personally performed and the decisions made by me, Jeffery Oliveira MD Status of Scribe Document: Viewed
[2018-06-29 10:34] LABS: ABS Lymphocytes 1.1 10^3/ul (1.0-4.8); ABS Monocytes 0.4 10^3/ul (0-0.8); ABS Neutrophils 2.8 10^3/ul (1.5-7.7); Eosinophil % 0.9 %; Hematocrit 31 % (35-47); Hemoglobin 9.7 g/dL (12.0-16.0); Lymphocyte % 25.6 %; Mean Corpuscular HGB Conc 32 g/dL (31-36); Mean Corpuscular Hemoglobin 29 pg (27-31); Mean Corpuscular Volume 92 fL (80-97); Platelet Count 217 10^3/uL (150-450); Red Blood Count 3.32 10^6 /uL (3.70-4.87); Red Cell Distribution Width 16 % (10.5-15); White Blood Count 4.4 10^3/uL (3.5-10.8)
--- OUTSIDE RECORDS SUMMARY | 2018-06-29 10:38 | XMS REPORT | Continuity of Care Document ---
:1935 External Reference #:[id number] Author Name Olga Oneal Care Team Providers Name Role Phone Donaldo Davis MD Care Team Information Receiving Manager Unavailable Erasto Bhardwaj MD Primary Care Physician Unavailable Payers Date Identification Numbers Payment Provider Subscriber Effective: 2004 Policy Number: [id number] Medicare Tu Hoskins PayID: [id number] [address] [place] [address] Effective: 2004 Policy Number: [facility] Tu Hoskins [id number] PayID: [id number] [address] [place] [address] Advance Directives Description No Information Available Problems Active Problems Provider Date Polyneuropathy Jody Godoy M.D. Onset: 07/21/2015 Carpal tunnel syndrome Jody Godoy M.D. Onset: 07/21/2015 Localized, primary osteoarthritis of the Carla Workman MD Onset: 03/08/2016 shoulder region Rheumatoid arthritis Carla Workman MD Onset: 06/17/2016 Prosthetic arthroplasty of shoulder Carla Workman MD Onset: 06/17/2016 Family History Date Family Member(s) Observation Comments General Heart Disease General Diabetes General Cancer Mother grand mother had arthritis Social History Type Date Description Comments Sex Unknown Lives With Daughter Occupation Retired ETOH Use Denies alcohol use Tobacco Use Start: Unknown Patient has never smoked Recreational Drug Use Denies Drug Use Smoking Status Reviewed: 06/26/18 Patient has never smoked Exercise Type/Frequency Does not exercise Allergies, Adverse Reactions, Alerts Active Allergies Reaction Severity Comments Date Oxycodone 12/23/2013 Augmentin 04/20/2015 Amoxicillin 04/20/2015 Contrast Iodianted Agents 04/20/2015 Amentia 04/20/2015 Remicade hives 06/30/2016 Medications Active Medications SIG Qnty Indications Ordering Provider Date Diclofenac Sodium apply 2 grams on 100gm M25.511 Estuardo Christiansen, 2018 1% RT shoulder twice [employer] Gel daily Amiodarone HCL 1 tab a day 60tabs I48.3 Donaldo Davis, 03/28/2018 200mg M.DSailaja Tablets Xarelto 1 by mouth every 90tabs I48.3 Donaldo Davis, 03/28/2018 20mg Tablets day (pt. states M.D. this is dc'd) Protonix 1/day [place], 04/17/2017 40mg Metoprolol Tartrate 1 by mouth twice [place] wyman, 03/09/2017 a day 50mg Tablets Ropinirole HCL 1 at hs [place] wyman, 02/24/2017 2mg Prolia 60 mg sc q6mon 60mg M81.0 Estuardo Christiansen, 02/24/2017 60mg/ml Solution [employer] Vitamin D3 Ultra 1 by mouth every 90caps Estuardo Christiansen, 11/29/2016 Strength day [employer] 5000Unit Capsules Methotrexate 4 tabs by mouth 60tabs M05.79 Estuardo Christiansen, 08/12/2016 2.5mg every week (on [employer] Tablets hold) Z79.899 Folic Acid 1 by mouth every 90tabs Z79.899 LEONEL FragaP 07/15/2016 1mg Tablets day in the morning Ambien 1 po qhs prn Unknown 5mg Losartan Potassium Take 1 Tablet By Unknown 50mg Mouth Every Day Tablets Vitamin B12 1 by mouth every Unknown 1000mcg day Tablets ER History Medications Warfarin Sodium 1 tablet mon, Unknown 06/27/2017 - 1mg and 1/2 tablet 03/26/2018 Tablets fri,sat,sun as directed [facility] Furosemide Take 1 Tablet By Joao Arshad MD 06/20/2017 - 40mg Mouth Daily 10/17/2017 Tablets Metformin HCL 1 tablet po daily [place], 05/10/2017 - 500mg MD Erasto 08/08/2017 Cipro 1 tab po twice 10tabs R30.0 Estuardo Christiansen, 02/24/2017 - 250mg Tablets daily for 5 days. [facility] 06/09/2017 May stop after 3 days if symptoms resolved. Pyridium 1 as needed every 6 1tabs R30.0 Andrewofisatnam Christiansen, 02/24/2017 - 200mg hours [facility] 02/24/2017 Tablets Bactrim DS 1 tab po bid 6units R30.0 Estuardo Christiansen, 02/24/2017 - 800-160mg [facility] 02/24/2017 Macrodantin 1 po qid 10caps R30.0 Estuardo Christiansen, 02/24/2017 - 25mg [facility] 02/24/2017 Capsules Iron 1 by mouth every 90tabs Estuardo Christiansen, 11/29/2016 - 325(65Fe) mg day ( last taken [facility] 08/08/2017 Tablets 07/04/17) Vitamin D3 Ultra 1 by mouth every 90caps Estuardo Christiansen, 08/15/2016 - Strength day [facility] 11/17/2016 5000Unit Capsules Methotrexate 6 tbs by mouth 72tabs M05.79 Estuardo Christiansen, 07/15/2016 - 2.5mg every week [facility] 08/12/2016 Tablets Z79.899 Calcium 500 +D 1 by mouth twice 180tabs M81.0 Estuardo Christiansen, 07/15/2016 - a day [facility] 10/17/2017 [id number] Tablets Oxycodone HCL take 1 - 2 every 60caps Carla Workman, 05/07/2016 - 5mg 4 - 6 hours as 05/28/2016 Capsules needed for pain. D3 Super Strength take one 90caps Marvin Negro, 03/02/2016 - capsule/tablet M.D. 11/17/2016 2000Unit Capsules daily by mouth Celebrex 1 tab by mouth 60caps M19.011 Adriel Junior 02/17/2016 - 100mg Capsules twice a day as MD Krystal 03/02/2016 needed Remicade Marvin Negro, 01/06/2016 - 100mg Solution M.D. 02/16/2016 Rec Ayana Foreman iv infusion: 2 QS M05.79 Estuardo Christiansen, 07/24/2015 - 50mg/4ML mg/kg repeat at [facility] 07/15/2016 Solution weeks 0 and 4 weeks and continue every 8 weeks thereafter On Hold Z79.899 Gabapentin take 1 capsule by 60caps Marvin Negro, 05/15/2015 - 100mg Capsules mouth at night M.D. 06/09/2017 for 1 week then 1 by mouth twice daily ongoing Prednisone Please take 4 90tabs Marvin Negro, 05/05/2015 - 10mg Tablets tabs daily for 4 M.D. 05/20/2015 days then 3 tabs daily for 4 days then 2 tabs daily for 4 days then 1 tab daily ongoing Nabumetone take one 30tabs Marvin Negro, 04/29/2015 - 500mg Tablets capsule/tablet by M.D. 05/05/2015 mouth twice daily as needed for pain, please stop other nsaids Ergocalciferol take 1 capsule by 14caps Marvin Negro, 04/27/2015 - [id number] mouth once weekly M.D. 01/06/2016 Capsules Tramadol HCL 1 by mouth four 50tabs Chester Rainey M.D. 02/03/2014 - 50mg Tablets times a day as 02/16/2016 needed Methotrexate take 5 60tabs Marvin Negro, - 2.5mg Tablets capsules/tablets M.D. 03/02/2016 once weekly by mouth Prednisone 20mg daily Unknown - 20mg Tablets 05/05/2015 Simvastatin 1 by mouth every Unknown - 40mg Tablets night at bedtime 07/04/2017 Triamterene/Hydrochlorot 1 by mouth every Unknown - hiazide day 07/04/2017 37.5-25mg Tablets Vitamin D3 1 by mouth every Unknown - 2000Unit Tablets day 03/02/2016 Eliquis Unknown - 09/28/2016 Vitamin D-3 1 by mouth every Unknown - Unknown Capsules day OTC( ran out 07/04/2017 last taken 07/05/17) Lisinopril-Hydrochloroth 1 by mouth every Unknown - iazide day( PT Does Not 08/08/2017 20-25mg Tablets Take , waiting for pre auth insurance) Vitamin B12 1 SL tablet po Unknown - 2000mcg daily 03/28/2018 Atorvastatin Calcium Take 1 Tablet By Unknown - 80mg Mouth Every Day 10/17/2017 Tablets AT 500 P.M. Losartan Potassium 1 by mouth every Unknown - 50mg day 10/12/2017 Tablets Lisinopril-Hydrochloroth 1 by mouth every Unknown - iazide day 09/28/2016 20-25mg Tablets Folic Acid 1 by mouth every 90tabs Marvin Negro, - 1mg Tablets day M.D. 08/12/2016 Vitamin D-1000 Maximum Unknown - Strength 04/20/2015 Vitamin B 12 2500 units/day Unknown - 03/02/2016 Lisinopril 1/day Unknown - 25 02/16/2016 Amlodipine Besylate qd Unknown - 10mg 09/17/2017 Zocor 1/day Unknown - 20mg 04/20/2015 Percocet 1 at hs Unknown - 5-325 05/28/2016 Metanx 1/day Unknown - 01/06/2016 Metoprolol Succinate ER bid Unknown - 50mg 06/20/2017 Creon Unknown - 20383 04/16/2014 Aspirin Ec Lo-Dose Unknown - 81mg 07/04/2017 Medications Administered in Office Medication SIG Qnty Indications Ordering Provider Date Prolia Injection, DenosumabEstuardo FNP 03/26/2018 1MG Injection Prolia Injection, Denosumab, Nurse Visit 09/22/2017 1MG Injection Prolia Injection DenEstuardo gallo FNP 02/24/2017 1MG Injection Depomedrol 40MG Adriel Rice MD 02/17/2016 Injection Prolia Injection, Denosumab, Marvin Negro M.D. 01/06/2016 1MG Injection Prolia Injection, Denosumab, Nurse Visit 06/24/2015 1MG Injection Immunizations CPT Code Status Date Vaccine Reaction Lot # [id number] Given 12/19/2017 Fluzone High Dose no immediate reaction [id number] 08000 Given 01/06/2016 Influ Virus Vaccine, [id number] Quadrivalent, Split Virus, [place] [address] Given 10/03/2014 Pneumococcal Conjugate Vaccine 13 Valent For Intramuscular Use 90991 Given Unknown Pneumonia Vaccine Vital Signs Date Vital Result Comment 2018 10:24am Height 61 inches 5'1" Weight 171.00 lb Heart Rate 72 /min BP Systolic Sitting 140 mmHg BP Diastolic Sitting 80 mmHg Respiratory Rate 14 /min BMI (Body Mass Index) 32.3 kg/m2 05/02/2018 1:11pm Height 61 inches 5'1" Weight 168.00 lb Heart Rate 72 /min BP Systolic Sitting 180 mmHg lue reg cuff BP Diastolic Sitting 68 mmHg lue reg cuff BP Systolic Standing 184 mmHg lue reg cuff BP Diastolic Standing 70 mmHg lue reg cuff Respiratory Rate 14 /min BMI (Body Mass Index) 31.7 kg/m2 Ejection Fraction 40-45% echo. 07/19/17 03/28/2018 2:55pm Height 61 inches 5'1" Weight 156.00 lb Heart Rate 135 /min BP Systolic Sitting 135 mmHg BP Diastolic Sitting 75 mmHg Respiratory Rate 16 /min BMI (Body Mass Index) 29.5 kg/m2 Ejection Fraction 40-45% 07/19/17 echo 03/26/2018 10:33am Heart Rate 140 /min 03/26/2018 9:17am Height 61 inches 5'1" Weight 156.50 lb Heart Rate 76 /min BP Systolic 128 mmHg BP Diastolic 64 mmHg Pain Level 6 O2 % BldC Oximetry 96 % BMI (Body Mass Index) 29.6 kg/m2 02/21/2018 9:14am Height 61 inches 5'1" Weight 158.00 lb w/o shoes Heart Rate 95 /min BP Systolic 150 mmHg LA BP Diastolic 70 mmHg LA Respiratory Rate 18 /min O2 % BldC Oximetry 98 % BMI (Body Mass Index) 29.9 kg/m2 12/19/2017 9:05am Height 61 inches 5'1" Heart Rate 58 /min BP Systolic Sitting 158 mmHg BP Diastolic Sitting 65 mmHg Respiratory Rate 14 /min Pain Level 0 11/17/2017 8:52am Height 61 inches 5'1" Weight 156.00 lb Heart Rate 106 /min BP Systolic Sitting 134 mmHg Lue, reg cuff BP Diastolic Sitting 84 mmHg Lue, reg cuff Respiratory Rate 16 /min BMI (Body Mass Index) 29.5 kg/m2 Ejection Fraction 40-45% as of 07/19/17 echo 10/18/2017 8:27am Height 61 inches 5'1" Weight 157.00 lb w/ shoes Heart Rate 62 /min BP Systolic Sitting 102 mmHg Lue, reg cuff BP Diastolic Sitting 60 mmHg Lue, reg cuff BP Systolic Standing 96 mmHg Lue BP Diastolic Standing 66 mmHg Lue Respiratory Rate 18 /min Body Temperature 97.5 F tympanic BMI (Body Mass Index) 29.7 kg/m2 Ejection Fraction 40-45% as of 07/19/17 echo 09/12/2017 9:00am Height 61 inches 5'1" Weight 152.00 lb Heart Rate 59 /min BP Systolic Sitting 98 mmHg BP Diastolic Sitting 58 mmHg Pain Level 0 O2 % BldC Oximetry 96 % BMI (Body Mass Index) 28.7 kg/m2 09/07/2017 1:21pm Height 61 inches 5'1" Weight 150.00 lb per pt Heart Rate 68 /min BP Systolic Sitting 96 mmHg Lue reg cuff BP Diastolic Sitting 46 mmHg Lue reg cuff BP Systolic Standing 94 mmHg Lue BP Diastolic Standing 46 mmHg Lue Respiratory Rate 18 /min BMI (Body Mass Index) 28.3 kg/m2 Ejection Fraction 40-45% as of 06/2017 echo 07/05/2017 9:45am Height 61 inches 5'1" Weight 166.00 lb No Shoes Heart Rate 62 /min BP Systolic Sitting 152 mmHg Lue BP Diastolic Sitting 64 mmHg Lue BP Systolic Standing 156 mmHg Lue BP Diastolic Standing 66 mmHg Lue Respiratory Rate 18 /min BMI (Body Mass Index) 31.4 kg/m2 Ejection Fraction 25-30% 06/20/17 07/05/2017 9:44am Ejection Fraction 25-30% date 06/20/17 ECHO 06/09/2017 9:20am Height 60.5 inches 5'0.50" BP Systolic 142 mmHg BP Diastolic 68 mmHg Pain Level 5 O2 % BldC Oximetry 98 % 02/24/2017 9:04am Height 60.5 inches 5'0.50" Weight 156.00 lb Heart Rate 60 /min BP Systolic Sitting 150 mmHg BP Diastolic Sitting 64 mmHg Respiratory Rate 14 /min Pain Level 3 BMI (Body Mass Index) 30.0 kg/m2 12/06/2016 1:27pm Height 60.5 inches 5'0.50" Weight 159.00 lb BP Systolic 118 mmHg BP Diastolic 64 mmHg Respiratory Rate 16 /min Pain Level 2 BMI (Body Mass Index) 30.5 kg/m2 11/18/2016 2:54pm Weight 159.25 lb Heart Rate 64 /min BP Systolic Sitting 166 mmHg BP Diastolic Sitting 64 mmHg Body Temperature 98.3 F Pain Level 0 O2 % BldC Oximetry 98 % 09/29/2016 9:15am Height 60.5 inches 5'0.50" Weight 159.00 lb Heart Rate 60 /min BP Systolic Sitting 125 mmHg BP Diastolic Sitting 75 mmHg Body Temperature 97.7 F Pain Level 0 BMI (Body Mass Index) 30.5 kg/m2 08/12/2016 9:23am Height 61 inches 5'1" Heart Rate 72 /min BP Systolic Sitting 144 mmHg BP Diastolic Sitting 90 mmHg Respiratory Rate 14 /min Pain Level 2 07/29/2016 10:30am Height 61 inches 5'1" Weight 155.00 lb Respiratory Rate 15 /min Body Temperature 98.4 F Pain Level 2 BMI (Body Mass Index) 29.3 kg/m2 07/15/2016 8:56am Height 61 inches 5'1" Weight 155.00 lb Heart Rate 100 /min BP Systolic Sitting 138 mmHg BP Diastolic Sitting 90 mmHg Respiratory Rate 14 /min Pain Level 4 BMI (Body Mass Index) 29.3 kg/m2 06/17/2016 10:27am Height 61 inches 5'1" Weight 154.00 lb BP Systolic 120 mmHg BP Diastolic 68 mmHg Respiratory Rate 17 /min Body Temperature 98.1 F Pain Level 4 BMI (Body Mass Index) 29.1 kg/m2 05/17/2016 9:49am Height 61 inches 5'1" Weight 154.00 lb Heart Rate 60 /min BP Systolic Sitting 142 mmHg BP Diastolic Sitting 82 mmHg Respiratory Rate 16 /min Body Temperature 97.3 F Pain Level 2 BMI (Body Mass Index) 29.1 kg/m2 04/28/2016 10:13am Height 61 inches 5'1" Weight 154.00 lb Heart Rate 96 /min BP Systolic 115 mmHg BP Diastolic 58 mmHg Respiratory Rate 16 /min Pain Level 5 BMI (Body Mass Index) 29.1 kg/m2 03/29/2016 9:32am Height 61 inches 5'1" Weight 154.00 lb Heart Rate 61 /min BP Systolic 146 mmHg BP Diastolic 61 mmHg Respiratory Rate 18 /min Pain Level 5 BMI (Body Mass Index) 29.1 kg/m2 03/08/2016 2:20pm Height 61 inches 5'1" Weight 154.00 lb BP Systolic Sitting 114 mmHg BP Diastolic Sitting 64 mmHg Respiratory Rate 16 /min Pain Level 5 BMI (Body Mass Index) 29.1 kg/m2 03/02/2016 9:51am Height 61 inches 5'1" Weight 154.00 lb Heart Rate 78 /min BP Systolic Sitting 140 mmHg BP Diastolic Sitting 60 mmHg Body Temperature 98.0 F Pain Level 5 BMI (Body Mass Index) 29.1 kg/m2 02/17/2016 3:31pm Height 61 inches 5'1" Weight 160.00 lb Heart Rate 86 /min BP Systolic Sitting 132 mmHg BP Diastolic Sitting 72 mmHg Respiratory Rate 18 /min Pain Level 5 BMI (Body Mass Index) 30.2 kg/m2 01/06/2016 3:54pm Height 61 inches 5'1" Weight 160.00 lb Heart Rate 64 /min BP Systolic Sitting 110 mmHg BP Diastolic Sitting 60 mmHg Respiratory Rate 14 /min Body Temperature 97.9 F Pain Level 6 BMI (Body Mass Index) 30.2 kg/m2 10/01/2015 10:51am Height 61 inches 5'1" Weight 158.00 lb Heart Rate 60 /min BP Systolic Sitting 114 mmHg BP Diastolic Sitting 64 mmHg Respiratory Rate 14 /min Body Temperature 99.4 F Pain Level 6 BMI (Body Mass Index) 29.9 kg/m2 08/25/2015 1:52pm Height 61 inches 5'1" Weight 160.00 lb Heart Rate 60 /min BP Systolic Sitting 116 mmHg BP Diastolic Sitting 48 mmHg Respiratory Rate 16 /min BMI (Body Mass Index) 30.2 kg/m2 07/28/2015 10:33am Height 61 inches 5'1" Weight 161.31 lb Heart Rate 64 /min BP Systolic Sitting 120 mmHg BP Diastolic Sitting 58 mmHg Respiratory Rate 4 /min Body Temperature 98.6 F BMI (Body Mass Index) 30.5 kg/m2 07/21/2015 9:09am Height 61 inches 5'1" Weight 160.00 lb Heart Rate 60 /min BP Systolic Sitting 126 mmHg BP Diastolic Sitting 64 mmHg Respiratory Rate 16 /min Pain Level 5 BMI (Body Mass Index) 30.2 kg/m2 05/20/2015 8:50am Height 61 inches 5'1" Weight 160.00 lb Heart Rate 76 /min BP Systolic Sitting 146 mmHg BP Diastolic Sitting 70 mmHg Pain Level 8 BMI (Body Mass Index) 30.2 kg/m2 04/20/2015 10:34am Height 61 inches 5'1" Weight 169.12 lb Heart Rate 64 /min BP Systolic Sitting 122 mmHg BP Diastolic Sitting 50 mmHg Respiratory Rate 14 /min Pain Level 5 BMI (Body Mass Index) 32.0 kg/m2 09/01/2014 2:49pm Height 61 inches 5'1" Weight 165.00 lb Pain Level 3 BMI (Body Mass Index) 31.2 kg/m2 05/21/2014 10:13am Height 61 inches 5'1" Heart Rate 70 /min Body Temperature 98.2 F Pain Level 2 04/17/2014 10:56am Height 61 inches 5'1" Heart Rate 70 /min BP Systolic 177 mmHg BP Diastolic 68 mmHg 04/02/2014 11:58am Height 61 inches 5'1" Weight 165.00 lb Body Temperature 97.6 F BMI (Body Mass Index) 31.2 kg/m2 03/26/2014 1:59pm Height 61 inches 5'1" Weight 165.00 lb Body Temperature 97.9 F Pain Level 4 BMI (Body Mass Index) 31.2 kg/m2 03/17/2014 8:24am Height 61 inches 5'1" Weight 162.00 lb Heart Rate 100 /min BP Systolic 150 mmHg BP Diastolic 80 mmHg BMI (Body Mass Index) 30.6 kg/m2 03/05/2014 1:26pm Height 61 inches 5'1" Weight 173.00 lb BP Systolic 186 mmHg BP Diastolic 97 mmHg BMI (Body Mass Index) 32.7 kg/m2 02/03/2014 10:17am Height 61 inches 5'1" Weight 173.00 lb Heart Rate 79 /min BP Systolic 155 mmHg BP Diastolic 68 mmHg Body Temperature 97.5 F Pain Level 7 BMI (Body Mass Index) 32.7 kg/m2 01/08/2014 8:23am Height 61 inches 5'1" Weight 170.00 lb Pain Level 8 BMI (Body Mass Index) 32.1 kg/m2 12/23/2013 8:34am Height 61 inches 5'1" Weight 170.00 lb Heart Rate 65 /min BP Systolic 150 mmHg BP Diastolic 70 mmHg BMI (Body Mass Index) 32.1 kg/m2 Results Test Date Facility Test Result H/L Range Note Order 04/16/2018 [facility] In-House Holter Monitor <pending> CBC Auto Diff 12/20/2017 [facility] White Blood 6.7 10^3/uL N 3.5-10.[address] [place] [address] [phone] Red Blood Count 3.86 10^6/uL Low 4.00-5.40 Hemoglobin 12.1 g/dL N 12.0-16.0 Hematocrit 37 % N 35-47 Mean Corpuscular Volume 96 fL N 80-97 Mean Corpuscular Hemoglobin 31 pg N 27-31 Mean Corpuscular HGB Conc 33 g/dL N 31-36 Red Cell Distribution Width 15 % N 10.5-15 Platelet Count 237 10^3/uL N 150-450 Mean Platelet Volume 8.4 um3 N 7.4-10.4 Abs Neutrophils 4.5 10^3/uL N 1.5-7.7 Abs Lymphocytes 1.8 10^3/uL N 1.0-4.8 Abs Monocytes 0.4 10^3/uL N 0-0.8 Abs Eosinophils 0.1 10^3/uL N 0-0.6 Abs Basophils 0 10^3/uL N 0-0.2 Abs Nucleated RBC 0 10^3/uL Granulocyte % 67.1 % N 38-83 Lymphocyte % 26.4 % N 25-47 Monocyte % 5.3 % N 0-7 Eosinophil % 0.8 % N 0-6 Basophil % 0.4 % N 0-2 Nucleated Red Blood Cells % 0.1 Comp Metabolic Panel 12/20/2017 [facility] Sodium 132 mmol/L Low 135-[address] [place] [address] [phone] Potassium 4.4 mmol/L N 3.5-5.0 Chloride 100 mmol/L Low 101-111 Co2 Carbon Dioxide 26 mmol/L N 22-32 Anion Gap 6 mmol/L N 2-11 Glucose 157 mg/dL High 70-100 Blood Urea Nitrogen 22 mg/dL N 6-24 Creatinine 0.93 mg/dL N 0.51-0.95 BUN/Creatinine Ratio 23.7 High 8-20 Calcium 9.8 mg/dL N 8.6-10.3 Total Protein 6.7 g/dL N 6.4-8.9 Albumin 3.4 g/dL N 3.2-5.2 Globulin 3.3 g/dL N 2-4 Albumin/Globulin Ratio 1.0 N 1-3 Total Bilirubin 1.20 mg/dL High 0.2-1.0 Alkaline Phosphatase 83 U/L N 34-104 Alt 22 U/L N 7-52 Ast 23 U/L N 13-39 Egfr Non- 58.0 >60 Egfr 70.2 >60 1 Laboratory test 12/20/2017 [facility] C Reactive 20.74 mg/L High <8.[address] [place] [address] [phone] Erythrocyte Sed Rate 38 mm/Hr N 0-40 CBC Auto Diff 07/01/2017 [facility] White Blood 8.4 10^3/uL N 3.5-10.[address] [place] [address] [phone] Red Blood Count 3.61 10^6/uL Low 4.0-5.4 Hemoglobin 10.8 g/dL Low 12.0-16.0 Hematocrit 33 % Low 35-47 Mean Corpuscular Volume 90 fL N 80-97 Mean Corpuscular Hemoglobin 30 pg N 27-31 Mean Corpuscular HGB Conc 33 g/dL N 31-36 Red Cell Distribution Width 17 % High 10.5-15 Platelet Count 259 10^3/uL N 150-450 Mean Platelet Volume 8.2 um3 N 7.4-10.4 Abs Neutrophils 6.3 10^3/uL N 1.5-7.7 Abs Lymphocytes 1.2 10^3/uL N 1.0-4.8 Abs Monocytes 0.6 10^3/uL N 0-0.8 Abs Eosinophils 0.2 10^3/uL N 0-0.6 Abs Basophils 0.1 10^3/uL N 0-0.2 Abs Nucleated RBC 0 10^3/uL Granulocyte % 75.7 % N 38-83 Lymphocyte % 14.7 % Low 25-47 Monocyte % 6.7 % N 0-7 Eosinophil % 2.1 % N 0-6 Basophil % 0.8 % N 0-2 Nucleated Red Blood Cells % 0 Comp Metabolic Panel 07/01/2017 [facility] Sodium 134 mmol/L Low 139-[address] [place] [address] [phone] Potassium 3.9 mmol/L N 3.5-5.0 Chloride 97 mmol/L Low 101-111 Co2 Carbon Dioxide 33 mmol/L High 22-32 Anion Gap 4 mmol/L N 2-11 Glucose 113 mg/dL High 70-100 Blood Urea Nitrogen 20 mg/dL N 6-24 Creatinine 0.89 mg/dL N 0.51-0.95 BUN/Creatinine Ratio 22.5 High 8-20 Calcium 9.0 mg/dL N 8.6-10.3 Total Protein 5.3 g/dL Low 6.4-8.9 Albumin 2.6 g/dL Low 3.2-5.2 Globulin 2.7 g/dL N 2-4 Albumin/Globulin Ratio 1.0 N 1-3 Total Bilirubin 1.00 mg/dL N 0.2-1.0 Alkaline Phosphatase 60 U/L N 34-104 Alt 6 U/L Low 7-52 Ast 13 U/L N 13-39 Egfr Non- 61.0 >60 Egfr 78.5 >60 3 Laboratory test 07/01/2017 [facility] Erythrocyte Sed 45 mm/Hr High 0-40 [address] [place] [address] [phone] C Reactive Protein 64.47 mg/L High < 5.00 4 Iron & Iron Binding 07/01/2017 [facility] Iron 43 g/dL Low 50-[address] [place] [address] [phone] Unsaturated Iron Binding 243 g/dL Total Iron Binding Capacity 286 g/dL N 250-450 Transferrin 204 mg/dL N 203-362 % Iron Saturation 15 % N 15-55 Laboratory test 07/01/2017 [facility] Ferritin 511.1 ng/mL High 11-[address] [place] [address] [phone] Vitamin D Total 25(Oh) 23.7 ng/mL N 20-50 Laboratory test 06/20/2017 [facility] Troponin-I (TnI) 11.64 High <0.04 [address] ng/[place] [address] [phone] Lipid Profile 06/20/2017 [facility] Triglycerides 62 mg/dL 6 (Trig/Chol/HDL) [address] [place] [address] [phone] Cholesterol 155 mg/dL 7 HDL Cholesterol 64.8 mg/dL 8 LDL Cholesterol 78 mg/dL 9 CBC Auto Diff 06/09/2017 [facility] White Blood 7.6 10^3/uL N 3.5-10.[address] [place] [address] [phone] Red Blood Count 3.49 10^6/uL Low 4.0-5.4 Hemoglobin 10.3 g/dL Low 12.0-16.0 Hematocrit 32 % Low 35-47 Mean Corpuscular Volume 90 fL N 80-97 Mean Corpuscular Hemoglobin 29 pg N 27-31 Mean Corpuscular HGB Conc 33 g/dL N 31-36 Red Cell Distribution Width 17 % High 10.5-15 Platelet Count 208 10^3/uL N 150-450 Mean Platelet Volume 9.1 um3 N 7.4-10.4 Abs Neutrophils 4.5 10^3/uL N 1.5-7.7 Abs Lymphocytes 2.3 10^3/uL N 1.0-4.8 Abs Monocytes 0.6 10^3/uL N 0-0.8 Abs Eosinophils 0.1 10^3/uL N 0-0.6 Abs Basophils 0.1 10^3/uL N 0-0.2 Abs Nucleated RBC 0 10^3/uL Granulocyte % 58.9 % N 38-83 Lymphocyte % 30.6 % N 25-47 Monocyte % 8.2 % High 0-7 Eosinophil % 1.6 % N 0-6 Basophil % 0.7 % N 0-2 Nucleated Red Blood Cells % 0 Comp Metabolic Panel 06/09/2017 [facility] Sodium 134 mmol/L Low 139-[address] [place] [address] [phone] Potassium 4.6 mmol/L N 3.5-5.0 Chloride 102 mmol/L N 101-111 Co2 Carbon Dioxide 26 mmol/L N 22-32 Anion Gap 6 mmol/L N 2-11 Glucose 92 mg/dL N 70-100 Blood Urea Nitrogen 20 mg/dL N 6-24 Creatinine 0.85 mg/dL N 0.51-0.95 BUN/Creatinine Ratio 23.5 High 8-20 Calcium 9.8 mg/dL N 8.6-10.3 Total Protein 6.8 g/dL N 6.4-8.9 Albumin 3.4 g/dL N 3.2-5.2 Globulin 3.4 g/dL N 2-4 Albumin/Globulin Ratio 1.0 N 1-3 Total Bilirubin 0.50 mg/dL N 0.2-1.0 Alkaline Phosphatase 69 U/L N 34-104 Alt 13 U/L N 7-52 Ast 18 U/L N 13-39 Egfr Non- 64.5 >60 Egfr 83.0 >60 10 Laboratory test 06/09/2017 [facility] C Reactive 4.00 mg/L N < 5.[address] [place] [address] [phone] Erythrocyte Sed Rate 41 mm/Hr High 0-40 12 Laboratory test 06/09/2017 [facility] Vitamin D 38.4 ng/mL N 20-[address] Total 25(Oh) [place] [address] [phone] Laboratory test 06/09/2017 [facility] TSH (Thyroid 0.56 N 0.34 -5.[address] Stim Horm) mcIU/[place] [address] [phone] Urinalysis 02/24/2017 [facility] Urine Color Natalia Profile [address] [place] [address] [phone] Urine Appearance Turbid Urine Specific [place] 1.016 N 1.010-1.030 Urine pH 6.0 N 5-9 Urine Urobilinogen Negative Negative Urine Ketones Negative Negative Urine Protein 2+(100 mg/dL) Abnormal Negative Urine Leukocytes 3+ Abnormal Negative Urine Blood 1+ Abnormal Negative Urine Nitrite Positive Abnormal Negative Urine Bilirubin Negative Negative Urine Glucose Negative Negative Urine White Blood Cell 3+(>20/hpf) Abnormal Absent Urine Red Blood Cell 3+(>10/hpf) Abnormal Absent Urine Bacteria Absent Absent Urine Squamous Epithelial Cell Present Abnormal Absent Urine Culture And 02/24/2017 [facility] Urine Culture SEE RESULT [address] [place] [address] [phone] CBC Auto Diff 02/17/2017 [facility] White Blood 5.2 10^3/uL N 3.5-[address] Count 0.8 [place] [address] [phone] Red Blood Count 3.46 10^6/uL Low 4.0-5.4 Hemoglobin 10.4 g/dL Low 12.0-16.0 Hematocrit 31 % Low 35-47 Mean Corpuscular Volume 91 fL N 80-97 Mean Corpuscular Hemoglobin 30 pg N 27-31 Mean Corpuscular HGB Conc 33 g/dL N 31-36 Red Cell Distribution Width 16 % High 10.5-15 Platelet Count 220 10^3/uL N 150-450 Mean Platelet Volume 9 um3 N 7.4-10.4 Abs Neutrophils 2.0 10^3/uL N 1.5-7.7 Abs Lymphocytes 2.4 10^3/uL N 1.0-4.8 Abs Monocytes 0.7 10^3/uL N 0-0.8 Abs Eosinophils 0.1 10^3/uL N 0-0.6 Abs Basophils 0 10^3/uL N 0-0.2 Abs Nucleated RBC 0.02 10^3/uL Granulocyte % 37.9 % Low 38-83 Lymphocyte % 46.0 % N 25-47 Monocyte % 13.7 % High 1-9 Eosinophil % 1.8 % N 0-6 Basophil % 0.6 % N 0-2 Nucleated Red Blood Cells % 0.3 Comp Metabolic Panel 02/17/2017 [facility] Sodium 130 mmol/L Low 133-[address] [place] [address] [phone] Potassium 4.2 mmol/L N 3.5-5.0 Chloride 99 mmol/L Low 101-111 Co2 Carbon Dioxide 25 mmol/L N 22-32 Anion Gap 6 mmol/L N 2-11 Glucose 97 mg/dL N 70-100 Blood Urea Nitrogen 35 mg/dL High 6-24 Creatinine 1.12 mg/dL High 0.51-0.95 BUN/Creatinine Ratio 31.3 High 8-20 Calcium 9.4 mg/dL N 8.6-10.3 Total Protein 6.5 g/dL N 6.4-8.9 Albumin 3.2 g/dL N 3.2-5.2 Globulin 3.3 g/dL N 2-4 Albumin/Globulin Ratio 1.0 N 1-3 Total Bilirubin 0.50 mg/dL N 0.2-1.0 Alkaline Phosphatase 67 U/L N 34-104 Alt 11 U/L N 7-52 Ast 24 U/L N 13-39 Egfr Non- 46.9 >60 Egfr 60.4 >60 14 Laboratory test 02/17/2017 [facility] Erythrocyte Sed 51 mm/Hr High 0-[address] [place] [address] [phone] C Reactive Protein 35.44 mg/L High < 5.00 16 Iron & Iron Binding 02/17/2017 [facility] Iron 19 g/dL Low 50-212 Capacity [address] [employer] [place] [place] [address] [phone] Unsaturated Iron Binding 337 g/dL Total Iron Binding Capacity 356 g/dL N 250-450 % Iron Saturation 5 % Low 15-55 Laboratory test 02/17/2017 [facility] Ferritin 40.2 ng/mL N 11 -307 17 finding [address] [employer] [place] [place] [address] [phone] Vitamin D Total 25(Oh) 35.8 ng/mL N 20-50 18 Laboratory test 11/24/2016 [facility] Ferritin 16.7 ng/mL N 11 -307 finding [address] [employer] [place] [place] [address] [phone] Iron & Iron Binding 11/24/2016 [facility] Iron 36 g/dL Low 50-212 Capacity [address] [employer] [place] [place] [address] [phone] Unsaturated Iron Binding 353 g/dL N Total Iron Binding Capacity 389 g/dL N 250-450 % Iron Saturation 9 % Low 15-55 Laboratory test 11/24/2016 [facility] C Reactive 8.27 mg/L High < 5.00 19 finding [address] [email or web address] [address] [phone] Erythrocyte Sed Rate 52 mm/Hr High 0-40 Comp Metabolic Panel 11/24/2016 [facility] Sodium 133 mmol/L N 133-145 [address] [employer] [place] [place] [address] [phone] Potassium 4.5 mmol/L N 3.5-5.0 Chloride 102 mmol/L N 101-111 Co2 Carbon Dioxide 24 mmol/L N 22-32 Anion Gap 7 mmol/L N 2-11 Glucose 95 mg/dL N 70-100 Blood Urea Nitrogen 24 mg/dL N 6-24 Creatinine 0.98 mg/dL High 0.51-0.95 BUN/Creatinine Ratio 24.5 High 8-20 Calcium 9.8 mg/dL N 8.6-10.3 Total Protein 6.8 g/dL N 6.4-8.9 Albumin 3.4 g/dL N 3.2-5.2 Globulin 3.4 g/dL N 2-4 Albumin/Globulin Ratio 1.0 N 1-3 Total Bilirubin 0.70 mg/dL N 0.2-1.0 Alkaline Phosphatase 78 U/L N 34-104 Alt 7 U/L N 7-52 Ast 16 U/L N 13-39 Egfr Non- 54.7 N >60 Egfr 70.4 N >60 20 CBC Auto Diff 11/24/2016 [facility] White Blood 5.9 10^3/uL N 3.5-10.[address] [place] [address] [phone] Red Blood Count 3.16 10^6/uL Low 4.0-5.4 Hemoglobin 9.8 g/dL Low 12.0-16.0 Hematocrit 29 % Low 35-47 Mean Corpuscular Volume 92 fL N 80-97 Mean Corpuscular Hemoglobin 31 pg N 27-31 Mean Corpuscular HGB Conc 34 g/dL N 31-36 Red Cell Distribution Width 17 % High 10.5-15 Platelet Count 251 10^3/uL N 150-450 Mean Platelet Volume 9 um3 N 7.4-10.4 Abs Neutrophils 3.3 10^3/uL N 1.5-7.7 Abs Lymphocytes 1.7 10^3/uL N 1.0-4.8 Abs Monocytes 0.6 10^3/uL N 0-0.8 Abs Eosinophils 0.2 10^3/uL N 0-0.6 Abs Basophils 0 10^3/uL N 0-0.2 Abs Nucleated RBC 0 10^3/uL N Granulocyte % 56.5 % N 38-83 Lymphocyte % 29.0 % N 25-47 Monocyte % 10.9 % High 1-9 Eosinophil % 2.7 % N 0-6 Basophil % 0.9 % N 0-2 Nucleated Red Blood Cells % 0 N CBC Auto Diff 08/12/2016 [facility] White Blood 5.0 10^3/uL N 3.5-10.[address] [place] [address] [phone] Red Blood Count 3.25 10^6/uL Low 4.0-5.4 Hemoglobin 9.4 g/dL Low 12.0-16.0 Hematocrit 29 % Low 35-47 Mean Corpuscular Volume 88 fL N 80-97 Mean Corpuscular Hemoglobin 29 pg N 27-31 Mean Corpuscular HGB Conc 33 g/dL N 31-36 Red Cell Distribution Width 15 % N 10.5-15 Platelet Count 243 10^3/uL N 150-450 Mean Platelet Volume 9 um3 N 7.4-10.4 Abs Neutrophils 2.5 10^3/uL N 1.5-7.7 Abs Lymphocytes 2.0 10^3/uL N 1.0-4.8 Abs Monocytes 0.4 10^3/uL N 0-0.8 Abs Eosinophils 0.1 10^3/uL N 0-0.6 Abs Basophils 0 10^3/uL N 0-0.2 Abs Nucleated RBC 0 10^3/uL N Granulocyte % 50.3 % N 38-83 Lymphocyte % 39.5 % N 25-47 Monocyte % 7.4 % N 1-9 Eosinophil % 2.0 % N 0-6 Basophil % 0.8 % N 0-2 Nucleated Red Blood Cells % 0.1 N Comp Metabolic Panel 08/12/2016 [facility] Sodium 130 mmol/L Low 133-[address] [place] [address] [phone] Potassium 4.5 mmol/L N 3.5-5.0 Chloride 98 mmol/L Low 101-111 Co2 Carbon Dioxide 25 mmol/L N 22-32 Anion Gap 7 mmol/L N 2-11 Glucose 90 mg/dL N 70-100 Blood Urea Nitrogen 26 mg/dL High 6-24 Creatinine 1.05 mg/dL High 0.51-0.95 BUN/Creatinine Ratio 24.8 High 8-20 Calcium 9.8 mg/dL N 8.6-10.3 Total Protein 7.1 g/dL N 6.4-8.9 Albumin 3.4 g/dL N 3.2-5.2 Globulin 3.7 g/dL N 2-4 Albumin/Globulin Ratio 0.9 Low 1-3 Total Bilirubin 0.70 mg/dL N 0.2-1.0 Alkaline Phosphatase 70 U/L N 34-104 Alt 9 U/L N 7-52 Ast 17 U/L N 13-39 Egfr Non- 50.6 N >60 Egfr 65.0 N >60 21 Laboratory test 08/12/2016 [facility] C Reactive 10.51 mg/L High < 5.00 [address] [place] [address] [phone] Erythrocyte Sed Rate 70 mm/Hr High 0-40 Vitamin D Total 25(Oh) 19.9 ng/mL Low 30-50 Comp Metabolic Panel 06/29/2016 [facility] Sodium 128 mmol/L Low 133-[address] [place] [address] [phone] Chloride 99 mmol/L Low 101-111 Co2 Carbon Dioxide 23 mmol/L N 22-32 Glucose 114 mg/dL High 70-100 Blood Urea Nitrogen 28 mg/dL High 6-24 Creatinine 0.92 mg/dL N 0.51-0.95 BUN/Creatinine Ratio 30.4 High 8-20 Calcium 10.4 mg/dL High 8.6-10.3 Total Protein 7.8 g/dL N 6.4-8.9 Albumin 3.5 g/dL N 3.2-5.2 Globulin 4.3 g/dL High 2-4 Albumin/Globulin Ratio 0.8 Low 1-3 Total Bilirubin 0.50 mg/dL N 0.2-1.0 Alkaline Phosphatase 64 U/L N 34-104 Alt 7 U/L N 7-52 Egfr Non- 58.9 N >60 Egfr 75.7 N >60 23 Potassium 4.7 mmol/L N 3.5-5.0 Anion Gap 6 mmol/L N 2-11 Ast 18 U/L N 13-39 Laboratory test 06/29/2016 [facility] C Reactive 11.78 mg/L High < 5.00 [address] [place] [address] [phone] CBC Auto Diff 06/29/2016 [facility] White Blood 7.5 N 3.5- 10.[address] Count 10^3/[place] [address] [phone] Red Blood Count 3.62 10^6/uL Low 4.0-5.4 Hemoglobin 10.5 g/dL Low 12.0-16.0 Hematocrit 32 % Low 35-47 Mean Corpuscular Volume 89 fL N 80-97 Mean Corpuscular Hemoglobin 29 pg N 27-31 Mean Corpuscular HGB Conc 33 g/dL N 31-36 Red Cell Distribution Width 14 % N 10.5-15 Platelet Count 307 10^3/uL N 150-450 Mean Platelet Volume 8 um3 N 7.4-10.4 Abs Neutrophils 4.5 10^3/uL N 1.5-7.7 Abs Lymphocytes 2.2 10^3/uL N 1.0-4.8 Abs Monocytes 0.5 10^3/uL N 0-0.8 Abs Eosinophils 0.1 10^3/uL N 0-0.6 Abs Basophils 0.1 10^3/uL N 0-0.2 Abs Nucleated RBC 0 10^3/uL N Granulocyte % 60.6 % N 38-83 Lymphocyte % 29.8 % N 25-47 Monocyte % 7.2 % N 1-9 Eosinophil % 1.1 % N 0-6 Basophil % 1.3 % N 0-2 Nucleated Red Blood Cells % 0 N Laboratory test 06/29/2016 [facility] Erythrocyte Sed 73 mm/Hr High 0-[address] [place] [address] [phone] Basic Metabolic 04/28/2016 [facility] Sodium 129 Low 133-[address] mmol/[place] [address] [phone] Potassium 4.8 mmol/L N 3.5-5.0 Chloride 100 mmol/L Low 101-111 Co2 Carbon Dioxide 25 mmol/L N 22-32 Anion Gap 4 mmol/L N 2-11 Glucose 98 mg/dL N 70-100 Blood Urea Nitrogen 32 mg/dL High 6-24 Creatinine 1.15 mg/dL High 0.51-0.95 BUN/Creatinine Ratio 27.8 High 8-20 Calcium 9.6 mg/dL N 8.6-10.3 Egfr Non- 45.6 N >60 Egfr 58.7 N >60 25 CBC No Diff 04/28/2016 [facility] White Blood 7.8 10^3/uL N 3.5-10.[address] [place] [address] [phone] Red Blood Count 3.54 10^6/uL Low 4.0-5.4 Hemoglobin 10.7 g/dL Low 12.0-16.0 Hematocrit 32 % Low 35-47 Mean Corpuscular Volume 91 fL N 80-97 Mean Corpuscular Hemoglobin 30 pg N 27-31 Mean Corpuscular HGB Conc 33 g/dL N 31-36 Red Cell Distribution Width 13 % N 10.5-15 Platelet Count 263 10^3/uL N 150-450 Mean Platelet Volume 8 um3 N 7.4-10.4 Inr/Protime 04/28/2016 [facility] Inr 1.15 High 0.89-1.[address] [place] [address] [phone] Laboratory test 04/28/2016 [facility] Partial 30.1 seconds N 26.0-36.[address] [place] [address] Time PTT [phone] Type & Screen 04/28/2016 [facility] Patient O Positive N [address] [place] [address] [phone] Antibody Screen NEGATIVE N CBC Auto Diff 03/29/2016 [facility] White Blood 8.2 10^3/uL N 3.5-10.[address] [place] [address] [phone] Red Blood Count 3.68 10^6/uL Low 4.0-5.4 Hemoglobin 11.2 g/dL Low 12.0-16.0 Hematocrit 34 % Low 35-47 Mean Corpuscular Volume 92 fL N 80-97 Mean Corpuscular Hemoglobin 30 pg N 27-31 Mean Corpuscular HGB Conc 33 g/dL N 31-36 Red Cell Distribution Width 14 % N 10.5-15 Platelet Count 234 10^3/uL N 150-450 Mean Platelet Volume 9 um3 N 7.4-10.4 Abs Neutrophils 3.6 10^3/uL N 1.5-7.7 Abs Lymphocytes 3.7 10^3/uL N 1.0-4.8 Abs Monocytes 0.8 10^3/uL N 0-0.8 Abs Eosinophils 0.1 10^3/uL N 0-0.6 Abs Basophils 0.1 10^3/uL N 0-0.2 Abs Nucleated RBC 0.01 10^3/uL N Granulocyte % 43.5 % N 38-83 Lymphocyte % 45.4 % N 25-47 Monocyte % 9.3 % High 1-9 Eosinophil % 1.2 % N 0-6 Basophil % 0.6 % N 0-2 Nucleated Red Blood Cells % 0.1 N Basic Metabolic 03/29/2016 [facility] Sodium 132 mmol/L Low 133-[address] [place] [address] [phone] Potassium 4.5 mmol/L N 3.5-5.0 Chloride 101 mmol/L N 101-111 Co2 Carbon Dioxide 27 mmol/L N 22-32 Anion Gap 4 mmol/L N 2-11 Glucose 94 mg/dL N 70-100 Blood Urea Nitrogen 22 mg/dL N 6-24 Creatinine 1.03 mg/dL High 0.51-0.95 BUN/Creatinine Ratio 21.4 High 8-20 Calcium 9.3 mg/dL N 8.6-10.3 Egfr Non- 51.8 N >60 Egfr 66.6 N >60 26 Laboratory 03/29/2016 [facility] Partial Thrombo 27.0 N 26.0- 36.3 test finding [address] [place] [address] [phone] Laboratory 03/08/2016 [facility] C Reactive < 1.00 N < 5.00 27 test finding [address] Protein mg/[place] [address] [phone] Laboratory 03/08/2016 [facility] Erythrocyte Sed 39 mm/Hr N 0- 40 test finding [address] [place] [address] [phone] Comp Metabolic 03/08/2016 [facility] Sodium 129 mmol/L Low 133 -[address] [place] [address] [phone] Chloride 103 mmol/L N 101-111 Co2 Carbon Dioxide 20 mmol/L Low 22-32 Glucose 87 mg/dL N 70-100 Blood Urea Nitrogen 28 mg/dL High 6-24 Creatinine 1.09 mg/dL High 0.51-0.95 BUN/Creatinine Ratio 25.7 High 8-20 Calcium 9.4 mg/dL N 8.6-10.3 Total Protein 7.0 g/dL N 6.4-8.9 Albumin 3.5 g/dL N 3.2-5.2 Globulin 3.5 g/dL N 2-4 Albumin/Globulin Ratio 1.0 N 1-3 Total Bilirubin 0.60 mg/dL N 0.2-1.0 Alkaline Phosphatase 46 U/L N 34-104 Alt 11 U/L N 7-52 Egfr Non- 48.5 N >60 Egfr 62.4 N >60 28 Potassium TNP mmol/L N 3.5-5.0 29 Anion Gap TNP mmol/L N 2-11 Ast TNP U/L N 13-39 30 Comp Metabolic Panel 02/09/2016 [facility] Sodium 132 mmol/L Low 133-[address] [place] [address] [phone] Potassium 4.5 mmol/L N 3.5-5.0 Chloride 102 mmol/L N 101-111 Co2 Carbon Dioxide 25 mmol/L N 22-32 Anion Gap 5 mmol/L N 2-11 Glucose 97 mg/dL N 70-100 Blood Urea Nitrogen 24 mg/dL N 6-24 Creatinine 0.91 mg/dL N 0.51-0.95 BUN/Creatinine Ratio 26.4 High 8-20 Calcium 9.1 mg/dL N 8.6-10.3 Total Protein 7.3 g/dL N 6.4-8.9 Albumin 3.6 g/dL N 3.2-5.2 Globulin 3.7 g/dL N 2-4 Albumin/Globulin Ratio 1.0 N 1-3 Total Bilirubin 0.70 mg/dL N 0.2-1.0 Alkaline Phosphatase 56 U/L N 34-104 Alt 12 U/L N 7-52 Ast 18 U/L N 13-39 Egfr Non- 59.8 N >60 Egfr 76.9 N >60 31 Laboratory test 02/09/2016 [facility] C Reactive < 1.00 N < 5.00 [address] Protein mg/[place] [address] [phone] CBC Auto Diff 02/09/2016 [facility] White Blood 4.7 N 3.5- 10.[address] Count 10^3/[place] [address] [phone] Red Blood Count 3.60 10^6/uL Low 4.0-5.4 Hemoglobin 10.9 g/dL Low 12.0-16.0 Hematocrit 33 % Low 35-47 Mean Corpuscular Volume 92 fL N 80-97 Mean Corpuscular Hemoglobin 30 pg N 27-31 Mean Corpuscular HGB Conc 33 g/dL N 31-36 Red Cell Distribution Width 15 % N 10.5-15 Platelet Count 234 10^3/uL N 150-450 Mean Platelet Volume 8 um3 N 7.4-10.4 Abs Neutrophils 1.9 10^3/uL N 1.5-7.7 Abs Lymphocytes 2.1 10^3/uL N 1.0-4.8 Abs Monocytes 0.5 10^3/uL N 0-0.8 Abs Eosinophils 0.1 10^3/uL N 0-0.6 Abs Basophils 0 10^3/uL N 0-0.2 Abs Nucleated RBC 0 10^3/uL N Granulocyte % 39.5 % N 38-83 Lymphocyte % 45.2 % N 25-47 Monocyte % 11.6 % High 1-9 Eosinophil % 2.7 % N 0-6 Basophil % 1.0 % N 0-2 Nucleated Red Blood Cells % 0 N Laboratory test 02/09/2016 [facility] Erythrocyte Sed 39 mm/Hr N 0-[address] [place] [address] [phone] Laboratory test 01/26/2016 [facility] C Reactive 7.52 mg/L High < 5.00 [address] [place] [address] [phone] Erythrocyte Sed Rate 61 mm/Hr High 0-40 Comp Metabolic Panel 01/26/2016 [facility] Sodium 131 mmol/L Low 133-[address] [place] [address] [phone] Potassium 4.8 mmol/L N 3.5-5.0 Chloride 103 mmol/L N 101-111 Co2 Carbon Dioxide 22 mmol/L N 22-32 Anion Gap 6 mmol/L N 2-11 Glucose 97 mg/dL N 70-100 Blood Urea Nitrogen 34 mg/dL High 6-24 Creatinine 1.05 mg/dL High 0.51-0.95 BUN/Creatinine Ratio 32.4 High 8-20 Calcium 9.4 mg/dL N 8.6-10.3 Total Protein 7.1 g/dL N 6.4-8.9 Albumin 3.4 g/dL N 3.2-5.2 Globulin 3.7 g/dL N 2-4 Albumin/Globulin Ratio 0.9 Low 1-3 Total Bilirubin 0.60 mg/dL N 0.2-1.0 Alkaline Phosphatase 65 U/L N 34-104 Alt 9 U/L N 7-52 Ast 16 U/L N 13-39 Egfr Non- 50.7 N >60 Egfr 65.2 N >60 34 CBC Auto Diff 01/26/2016 [facility] White Blood 5.9 10^3/uL N 3.5-10.[address] [place] [address] [phone] Red Blood Count 3.59 10^6/uL Low 4.0-5.4 Hemoglobin 10.7 g/dL Low 12.0-16.0 Hematocrit 33 % Low 35-47 Mean Corpuscular Volume 90 fL N 80-97 Mean Corpuscular Hemoglobin 30 pg N 27-31 Mean Corpuscular HGB Conc 33 g/dL N 31-36 Red Cell Distribution Width 15 % N 10.5-15 Platelet Count 286 10^3/uL N 150-450 Mean Platelet Volume 8 um3 N 7.4-10.4 Abs Neutrophils 3.3 10^3/uL N 1.5-7.7 Abs Lymphocytes 1.9 10^3/uL N 1.0-4.8 Abs Monocytes 0.5 10^3/uL N 0-0.8 Abs Eosinophils 0.2 10^3/uL N 0-0.6 Abs Basophils 0 10^3/uL N 0-0.2 Abs Nucleated RBC 0.01 10^3/uL N Granulocyte % 56.2 % N 38-83 Lymphocyte % 32.0 % N 25-47 Monocyte % 8.5 % N 1-9 Eosinophil % 2.7 % N 0-6 Basophil % 0.6 % N 0-2 Nucleated Red Blood Cells % 0.2 N Comp Metabolic Panel 01/06/2016 [facility] Sodium 131 mmol/L Low 133-[address] [place] [address] [phone] Potassium 4.8 mmol/L N 3.5-5.0 Chloride 98 mmol/L Low 101-111 Co2 Carbon Dioxide 26 mmol/L N 22-32 Anion Gap 7 mmol/L N 2-11 Glucose 97 mg/dL N 70-100 Blood Urea Nitrogen 33 mg/dL High 6-24 Creatinine 1.33 mg/dL High 0.51-0.95 BUN/Creatinine Ratio 24.8 High 8-20 Calcium 10.2 mg/dL N 8.6-10.3 Total Protein 6.9 g/dL N 6.4-8.9 Albumin 3.5 g/dL N 3.2-5.2 Globulin 3.4 g/dL N 2-4 Albumin/Globulin Ratio 1.0 N 1-3 Total Bilirubin 0.40 mg/dL N 0.2-1.0 Alkaline Phosphatase 70 U/L N 34-104 Alt 14 U/L N 7-52 Ast 15 U/L N 13-39 Egfr Non- 38.6 N >60 Egfr 49.6 N >60 35 CBC Auto 01/06/2016 [facility] White Blood 11.4 10^3/uL High 3.5-10.[address] [place] [address] [phone] Red Blood Count 3.87 10^6/uL Low 4.0-5.4 Hemoglobin 11.4 g/dL Low 12.0-16.0 Hematocrit 35 % N 35-47 Mean Corpuscular Volume 89 fL N 80-97 Mean Corpuscular Hemoglobin 30 pg N 27-31 Mean Corpuscular HGB Conc 33 g/dL N 31-36 Red Cell Distribution Width 15 % N 10.5-15 Platelet Count 341 10^3/uL N 150-450 Mean Platelet Volume 8 um3 N 7.4-10.4 Abs Neutrophils 6.9 10^3/uL N 1.5-7.7 Abs Lymphocytes 3.5 10^3/uL N 1.0-4.8 Abs Monocytes 0.7 10^3/uL N 0-0.8 Abs Eosinophils 0.2 10^3/uL N 0-0.6 Abs Basophils 0.1 10^3/uL N 0-0.2 Abs Nucleated RBC 0 10^3/uL N Granulocyte % 60.3 % N 38-83 Lymphocyte % 30.4 % N 25-47 Monocyte % 6.5 % N 1-9 Eosinophil % 2.0 % N 0-6 Basophil % 0.8 % N 0-2 Nucleated Red Blood Cells % 0 N Laboratory test 01/06/2016 [facility] C Reactive 11.94 mg/L High < 5.00 [address] [place] [address] [phone] Erythrocyte Sed Rate 53 mm/Hr High 0-40 37 CBC Auto Diff 09/17/2015 [facility] White Blood 9.4 10^3/uL N 3.5-10.[address] [place] [address] [phone] Red Blood Count 3.68 10^6/uL Low 4.0-5.4 Hemoglobin 10.4 g/dL Low 12.0-16.0 Hematocrit 32 % Low 35-47 Mean Corpuscular Volume 87 fL N 80-97 Mean Corpuscular Hemoglobin 28 pg N 27-31 Mean Corpuscular HGB Conc 33 g/dL N 31-36 Red Cell Distribution Width 15 % N 10.5-15 Platelet Count 288 10^3/uL N 150-450 Mean Platelet Volume 8 um3 N 7.4-10.4 Abs Neutrophils 5.5 10^3/uL N 1.5-7.7 Abs Lymphocytes 3.0 10^3/uL N 1.0-4.8 Abs Monocytes 0.8 10^3/uL N 0-0.8 Abs Eosinophils 0.1 10^3/uL N 0-0.6 Abs Basophils 0 10^3/uL N 0-0.2 Abs Nucleated RBC 0 10^3/uL N Granulocyte % 58.5 % N 38-83 Lymphocyte % 31.9 % N 25-47 Monocyte % 8.3 % N 1-9 Eosinophil % 1.1 % N 0-6 Basophil % 0.2 % N 0-2 Nucleated Red Blood Cells % 0 N Laboratory test 09/17/2015 [facility] C Reactive 3.01 mg/L N < 5.00 [address] [place] [address] [phone] Comp Metabolic 09/17/2015 [facility] Sodium 130 Low 133-[address] mmol/[place] [address] [phone] Potassium 4.0 mmol/L N 3.5-5.0 Chloride 100 mmol/L Low 101-111 Co2 Carbon Dioxide 24 mmol/L N 22-32 Anion Gap 6 mmol/L N 2-11 Glucose 88 mg/dL N 70-100 Blood Urea Nitrogen 21 mg/dL N 6-24 Creatinine 0.97 mg/dL High 0.51-0.95 BUN/Creatinine Ratio 21.6 High 8-20 Calcium 9.4 mg/dL N 8.6-10.3 Total Protein 7.3 g/dL N 6.4-8.9 Albumin 3.4 g/dL N 3.2-5.2 Globulin 3.9 g/dL N 2-4 Albumin/Globulin Ratio 0.9 Low 1-3 Total Bilirubin 0.60 mg/dL N 0.2-1.0 Alkaline Phosphatase 65 U/L N 34-104 Alt 9 U/L N 7-52 Ast 16 U/L N 13-39 Egfr Non- 55.5 N >60 Egfr 71.4 N >60 39 Laboratory test 09/17/2015 [facility] Erythrocyte Sed 50 mm/Hr High 0-[address] [place] [address] [phone] Laboratory test 07/23/2015 [facility] Erythrocyte Sed 33 mm/Hr N 0-[address] [place] [address] [phone] CBC Auto Diff 07/23/2015 [facility] White Blood 6.2 N 3.5- 10.[address] Count 10^3/[place] [address] [phone] Red Blood Count 3.40 10^6/uL Low 4.0-5.4 Hemoglobin 10.0 g/dL Low 12.0-16.0 Hematocrit 32 % Low 35-47 Mean Corpuscular Volume 93 fL N 80-97 Mean Corpuscular Hemoglobin 29 pg N 27-31 Mean Corpuscular HGB Conc 32 g/dL N 31-36 Red Cell Distribution Width 18 % High 10.5-15 Platelet Count 268 10^3/uL N 150-450 Mean Platelet Volume 9 um3 N 7.4-10.4 Abs Neutrophils 3.3 10^3/uL N 1.5-7.7 Abs Lymphocytes 2.1 10^3/uL N 1.0-4.8 Abs Monocytes 0.4 10^3/uL N 0-0.8 Abs Eosinophils 0.3 10^3/uL N 0-0.6 Abs Basophils 0.1 10^3/uL N 0-0.2 Abs Nucleated RBC 0 10^3/uL N Granulocyte % 53.8 % N 38-83 Lymphocyte % 33.3 % N 25-47 Monocyte % 7.2 % N 1-9 Eosinophil % 4.1 % N 0-6 Basophil % 1.6 % N 0-2 Nucleated Red Blood Cells % 0 N Laboratory test 07/23/2015 [facility] C Reactive 3.50 mg/L N < 5.00 [address] [place] [address] [phone] Comp Metabolic 07/23/2015 [facility] Sodium 132 Low 133-[address] mmol/[place] [address] [phone] Potassium 4.9 mmol/L N 3.5-5.0 Chloride 106 mmol/L N 101-111 Co2 Carbon Dioxide 21 mmol/L Low 22-32 Anion Gap 5 mmol/L N 2-11 Glucose 134 mg/dL High 70-100 Blood Urea Nitrogen 24 mg/dL N 6-24 Creatinine 1.01 mg/dL High 0.51-0.95 BUN/Creatinine Ratio 23.8 High 8-20 Calcium 8.8 mg/dL N 8.6-10.3 Total Protein 6.8 g/dL N 6.4-8.9 Albumin 3.6 g/dL N 3.2-5.2 Globulin 3.2 g/dL N 2-4 Albumin/Globulin Ratio 1.1 N 1-3 Total Bilirubin 0.60 mg/dL N 0.2-1.0 Alkaline Phosphatase 66 U/L N 34-104 Alt 8 U/L N 7-52 Ast 13 U/L N 13-39 Egfr Non- 53.0 N >60 Egfr 68.2 N >60 41 Laboratory test 07/23/2015 [facility] Cryoglobulin Negative % ppt N Negative [address] [place] [address] [phone] Vitamin B12 224 pg/mL N 180-914 43 Free T4 (Free Thyroxine) 1.15 ng/dL High 0.61-1.12 44 TSH (Thyroid Stim Horm) 0.62 ?IU/mL N 0.34-5.60 45 Protein 07/23/2015 [facility] Total 7.2 g/dL N 6.3 - Electrophoresis [address] Protein(Pep) 7.9 [place] [address] [phone] Albumin 3.2 g/dL Abnormal 3.4-4.7 Alpha-1 Globulin 0.3 g/dL N 0.1-0.3 Alpha-2 Globulin 1.0 g/dL N 0.6-1.0 Beta Globulin 1.1 g/dL N 0.7-1.2 Gamma Globulin 1.7 g/dL Abnormal 0.6-1.6 Albumin/Globulin Ratio 0.80 N Impression See Comment N 46 Laboratory test finding 07/23/2015 [facility] Anti Ssa/Ro <0.2 U N [address] [place] [address] [phone] Anti SSB LA <0.2 U N 48 Laboratory test 06/25/2015 [facility] Erythrocyte Sed 61 mm/Hr High 0-[address] [place] [address] [phone] CBC Auto Diff 06/25/2015 [facility] White Blood 7.7 N 3.5- 10.[address] Count 10^3/[place] [address] [phone] Red Blood Count 3.00 10^6/uL Low 4.0-5.4 Hemoglobin 9.1 g/dL Low 12.0-16.0 Hematocrit 27 % Low 35-47 Mean Corpuscular Volume 91 fL N 80-97 Mean Corpuscular Hemoglobin 30 pg N 27-31 Mean Corpuscular HGB Conc 33 g/dL N 31-36 Red Cell Distribution Width 16 % High 10.5-15 Platelet Count 381 10^3/uL N 150-450 Mean Platelet Volume 8 um3 N 7.4-10.4 Abs Neutrophils 4.7 10^3/uL N 1.5-7.7 Abs Lymphocytes 2.1 10^3/uL N 1.0-4.8 Abs Monocytes 0.7 10^3/uL N 0-0.8 Abs Eosinophils 0.1 10^3/uL N 0-0.6 Abs Basophils 0.1 10^3/uL N 0-0.2 Abs Nucleated RBC 0 10^3/uL N Granulocyte % 61.1 % N 38-83 Lymphocyte % 27.7 % N 25-47 Monocyte % 8.9 % N 1-9 Eosinophil % 1.4 % N 0-6 Basophil % 0.9 % N 0-2 Nucleated Red Blood Cells % 0 N Laboratory test 06/25/2015 [facility] C Reactive 17.95 mg/L High < 5.[address] [place] [address] [phone] Comp Metabolic 06/25/2015 [facility] Sodium 130 mmol/L Low 133 -145 Panel [address] [place] [address] [phone] Potassium 4.3 mmol/L N 3.5-5.0 Chloride 101 mmol/L N 101-111 Co2 Carbon Dioxide 23 mmol/L N 22-32 Anion Gap 6 mmol/L N 2-11 Glucose 120 mg/dL High 70-100 Blood Urea Nitrogen 28 mg/dL High 6-24 Creatinine 1.00 mg/dL High 0.51-0.95 BUN/Creatinine Ratio 28.0 High 8-20 Calcium 9.3 mg/dL N 8.6-10.3 Total Protein 6.9 g/dL N 6.4-8.9 Albumin 3.5 g/dL N 3.2-5.2 Globulin 3.4 g/dL N 2-4 Albumin/Globulin Ratio 1.0 N 1-3 Total Bilirubin 0.60 mg/dL N 0.2-1.0 Alkaline Phosphatase 71 U/L N 34-104 Alt 5 U/L Low 7-52 Ast 11 U/L Low 13-39 Egfr Non- 53.8 N >60 Egfr 69.1 N >60 50 Comp Metabolic Panel 05/21/2015 [facility] Sodium 131 mmol/L Low 133-145 [address] [place] [address] [phone] Potassium 4.6 mmol/L N 3.5-5.0 Chloride 99 mmol/L Low 101-111 Co2 Carbon Dioxide 23 mmol/L N 22-32 Anion Gap 9 mmol/L N 2-11 Glucose 162 mg/dL High 70-100 Blood Urea Nitrogen 30 mg/dL High 6-24 Creatinine 0.96 mg/dL High 0.51-0.95 BUN/Creatinine Ratio 31.3 High 8-20 Calcium 10.4 mg/dL High 8.6-10.3 Total Protein 6.7 g/dL N 6.4-8.9 Albumin 3.4 g/dL N 3.2-5.2 Globulin 3.3 g/dL N 2-4 Albumin/Globulin Ratio 1.0 N 1-3 Total Bilirubin 0.50 mg/dL N 0.2-1.0 Alkaline Phosphatase 78 U/L N 34-104 Alt 7 U/L N 7-52 Ast 11 U/L Low 13-39 Egfr Non- 56.4 N >60 Egfr 72.5 N >60 51 CBC Auto Diff 05/21/2015 [facility] White Blood 9.0 10^3/uL N 3.5-10.[address] [place] [address] [phone] Red Blood Count 3.55 10^6/uL Low 4.0-5.4 Hemoglobin 10.5 g/dL Low 12.0-16.0 Hematocrit 32 % Low 35-47 Mean Corpuscular Volume 90 fL N 80-97 Mean Corpuscular Hemoglobin 30 pg N 27-31 Mean Corpuscular HGB Conc 33 g/dL N 31-36 Red Cell Distribution Width 14 % N 10.5-15 Platelet Count 386 10^3/uL N 150-450 Mean Platelet Volume 8 um3 N 7.4-10.4 Abs Neutrophils 5.5 10^3/uL N 1.5-7.7 Abs Lymphocytes 2.6 10^3/uL N 1.0-4.8 Abs Monocytes 0.7 10^3/uL N 0-0.8 Abs Eosinophils 0.1 10^3/uL N 0-0.6 Abs Basophils 0.1 10^3/uL N 0-0.2 Abs Nucleated RBC 0 10^3/uL N Granulocyte % 61.1 % N 38-83 Lymphocyte % 29.0 % N 25-47 Monocyte % 8.2 % N 1-9 Eosinophil % 0.8 % N 0-6 Basophil % 0.9 % N 0-2 Nucleated Red Blood Cells % 0 N Laboratory test 05/21/2015 [facility] C Reactive 64.88 mg/L High < 5.00 [address] [place] [address] [phone] Erythrocyte Sed Rate 89 mm/Hr High 0-40 53 Quantiferon Gold 05/21/2015 [facility] M tuberculosis Negative N Negative TB [address] [place] [address] [phone] Tuberculosis Antigen Value 0.00 IU/mL N 54 Laboratory test 04/22/2015 [facility] Sepideh (Antinuclear Negative N Negative finding [address] Antibodies) [place] [address] [phone] Angiotensin Converting Enzyme 9 U/L N 8 - 53 55 C Reactive Protein 55.48 mg/L High < 5.00 56 Cyclic Citrullinated Pep Igg >250.0 U Abnormal 57 Rheumatoid Factor <15 IU/mL N <15 58 Uric Acid 6.5 mg/dL N 2.3-6.6 59 Vitamin B12 347 pg/mL N 180-914 60 Vitamin D 1,25 04/22/2015 [facility] Vitamin D 14.4 ng/mL Low 30-50 61 And Vitamin D,[address] Total 25(Oh) [place] [address] [phone] Vitamin D, 1,25 Dihydroxy 42 pg/mL N 18-78 62 Laboratory test 04/22/2015 [facility] Lyme Disease Negative N Negative [address] [place] [address] [phone] CBC No Diff 03/17/2014 [facility] White Blood 5.8 10^3/uL N 4.8-10.[address] [place] [address] [phone] Red Blood Count 3.89 10^6/uL Low 4.0-5.4 Hemoglobin 11.2 g/dL Low 12.0-16.0 Hematocrit 35 % N 35-47 Mean Corpuscular Volume 90 fL N 80-97 Mean Corpuscular Hemoglobin 29 pg N 27-31 Mean Corpuscular HGB Conc 32 g/dL N 31-36 Red Cell Distribution Width 15 % N 10.5-15 Platelet Count 262 10^3/uL N 150-450 Mean Platelet Volume 9 um3 N 7.4-10.4 Basic Metabolic 03/17/2014 [facility] Sodium 131 mmol/L Low 133-145 Panel [address] [place] [address] [phone] Potassium 4.1 mmol/L N 3.5-5.0 Chloride 100 mmol/L Low 101-111 Co2 Carbon Dioxide 28 mmol/L N 22-32 Anion Gap 3 mmol/L N 2-11 Glucose 105 mg/dL High 70-100 Blood Urea Nitrogen 25 mg/dL High 6-24 Creatinine 1.01 mg/dL High 0.51-0.95 BUN/Creatinine Ratio 24.8 High 8-20 Calcium 10.0 mg/dL N 8.6-10.3 Egfr Non- 53.3 N >60 Egfr 68.5 N >60 65 Inr/Protime 03/17/2014 [facility] Inr 1.01 N 0.85-1.06 [address] [place] [address] [phone] Laboratory test 03/17/2014 [facility] Activated 28.5 seconds N 24.0-36.1 66 finding [address] [facility] [place] [address] Thrombo Time [phone] Type & Screen 03/17/2014 [facility] Patient Blood O Positive N [address] [facility] [place] [address] [phone] Antibody Screen NEGATIVE N 1 Because ethnic data is not always readily [...] 15-29 5 Kidney failure <15 (or dialysis) 2 had CABG on 06/21/17 3 Because ethnic data is not always readily [...] 15-29 5 Kidney failure <15 (or dialysis) 4 Acute inflammation: >10.00 5 Result TnIDx:11.64 Called to BPT1939 at: 08:19:45 by:[id number] Read back by:[id number] Desirable: <150 Borderline High: 150-199 High: 200-499 Very High: >500 7 Desirable: <200 Borderline High: 200-239 High: >239 8 Low: <40 Desirable: 40-60 High: >60 9 Desirable: <100 Near Optimal: 100-129 Borderline High: 130-159 High: 160-189 Very High: >189 10 Because ethnic data is not always [...] 5 Kidney failure <15 (or dialysis) 11 Acute inflammation: >10.00 12 standing order 13 SEE RESULT BELOW Name: TU HOSKINS : [address]: Estuardo Christiansen NP Acct: [id number] Unit: [id number] AGE: 81 Location: LAB Re02/24/17 SEX: F Status: REG REF SPEC: [id number] ELIAS: 02/24/17-[address]: Estuardo Christiansen NP REQ: [id number] RECD: 02/24/17 STATUS: COMP _ SOURCE: URINE SPDESC: ORDERED: Urine Culture Procedure Result Reported Site Urine Culture Final 02/26/17- 0853 ML Organism 1 ESCHERICHIA COLI [place] Count >100,000 (Many) CFU/ML 1. ESCHERICHIA COLI [...] antibiotic reporting. * ML - MAIN LAB ([facility]) . END OF REPORT * ML=Testing performed at Main Lab DEPARTMENT OF PATHOLOGY, [address] [place] [address] Mode Wilburn M.D. Director [facility] # [id number] 14 Because ethnic data is not always [...] 5 Kidney failure <15 (or dialysis) 15 1 x order 16 Acute inflammation: >10.00 17 1 x order 18 1 x order 19 Acute inflammation: >10.00 20 Because ethnic data is not always readily [...] 15-29 5 Kidney failure <15 (or dialysis) 21 Because ethnic data is not always [...] (or dialysis) 22 Acute inflammation: >10.00 23 Because ethnic data is not always readily [...] 15-29 5 Kidney failure <15 (or dialysis) 24 Acute inflammation: >10.00 25 Because ethnic data is not always [...] (or dialysis) 27 Acute inflammation: >10.00 28 Because ethnic data is not always readily [...] 15-29 5 Kidney failure <15 (or dialysis) 29 Unable to report test result due to hemolysis. 30 Unable to report test result due to hemolysis. 31 Because ethnic data is not always readily [...] 15-29 5 Kidney failure <15 (or dialysis) 32 Acute inflammation: >10.00 33 Acute inflammation: >10.00 34 Because ethnic data is not always readily [...] 15-29 5 Kidney failure <15 (or dialysis) 35 Because ethnic data is not always [...] (or dialysis) 36 Acute inflammation: >10.00 37 Please check today 38 Acute inflammation: >10.00 39 Because ethnic data is not always readily [...] 15-29 5 Kidney failure <15 (or dialysis) 40 Acute inflammation: >10.00 41 Because ethnic data is not always [...] 5 Kidney failure <15 (or dialysis) 42 This test is negative at 24 hours. All samples are held and reviewed again at 7 days. If delayed precipitation occurs after 7 days, Immunofixation will be performed and an additional report will follow. Test Performed by: [place] [address] Chin Strap Maker: Rashaun Yo II, M.D., Ph.D. 43 Normal Range 180 to 914 Indeterminate Range 145 to 180 Deficient Range <145 44 Copy Result to: ERASTO BHARDWAJ ([id number]) 45 Copy Result to: ERASTO BHARDWAJ ([id number]) 46 RESULT: Polyclonal hypergammaglobulinemia Test Performed by: [place] [address] Chin Strap Maker: Rashaun Yo II, M.D., Ph.D. 47 REFERENCE VALUE <1.0 (Negative) Test Performed by: [place] [address] Chin Strap Maker: Rashaun Yo II, M.D., Ph.D. 48 REFERENCE VALUE <1.0 (Negative) Test Performed by: [facility] [address] [address] Chin Strap Maker: Rashaun Yo II, M.D., Ph.D. 49 Acute inflammation: >10.00 50 Because ethnic data is not always readily [...] 15-29 5 Kidney failure <15 (or dialysis) 51 Because ethnic data is not always readily [...] 15-29 5 Kidney failure <15 (or dialysis) 52 Acute inflammation: >10.00 53 this week please 54 ADDITIONAL INFORMATION This is a qualitative test. [...] when interpreting QuantiFERON-TB results. Test Performed by: [place] [address] Chin Strap Maker: Rashaun Yo II, M.D., Ph.D. 55 Test Performed by: [place] [address] Chin Strap Maker: Rashaun Yo II, M.D., Ph.D. 56 Acute inflammation: >10.00 57 Interpretation: Strong Positive (>=60.0) REFERENCE VALUE <20.0 (Negative) Test Performed by: [place] [address] Chin Strap Maker: Rashaun Yo II, M.D., Ph.D. 58 Test Performed [place] [address] Chin Strap Maker: Rashaun Yo II, M.D., Ph.D. 59 this week 60 Normal Range 180 to 914 Indeterminate Range 145 to 180 Deficient Range <145 61 this week 62 Test Performed by: [place] [address] Chin Strap Maker: Rashaun Yo II, M.D., Ph.D. 63 Serologic response to B. burgdorferi infection is not detected, but cannot rule out early infection during which low or undetectable antibody levels to B. burgdorferi may be present. If clinically indicated, a new serum specimen should be submitted in 7-14 days. Test Performed by: [place] [address] Chin Strap Maker: Rashaun Yo II, M.D., Ph.D. 64 [facility] 03/20 65 Because ethnic data is not always readily [...] 15-29 5 Kidney failure <15 (or dialysis) 66 SDS 03/20 Procedures Date Code Description Status 04/21/2018 64736 Holter Monitor Review (24 hr)dr suarez & noellep only Completed 04/16/2018 67710 ECG Monitor/Recording W/Visual Superimposition Completed Scanning 04/09/2018 [id number] Bone Mineral Density Test Completed 03/28/2018 25359 EKG Tracing & Interpretation Completed 03/26/2018 62503 Admin Of Inj Completed 03/26/2018 12626 EKG Tracing & Interpretation Completed 02/21/2018 71514 EKG Tracing & Interpretation Completed 09/22/2017 30590 Admin Of Inj Completed 09/07/2017 16722 EKG Tracing & Interpretation Completed 07/28/2017 42320 Mobile Cardiovascular Telemetry Over 24 HR Up To 30 Completed Days 07/19/2017 90870 ECHO Transthoracic, Real-Time 2D With Doppler And Completed Color Flow 07/19/2017 85033 ECHO Transthoracic, Real-Time 2D With Doppler And Completed Color Flow 07/05/2017 86963 EKG Tracing & Interpretation Completed 06/20/2017 21497 ECHO Transthorasic Realtime 2D W Doppler & Color Flow Completed Hosp 06/20/2017 33659 Cath PLMT&NJX L Ventriculog Img S&I Completed 02/24/2017 87837 Admin Of Inj Completed 05/06/2016 72535 Arthroplasty,Total Shoulder Replacement (TSR) Completed 05/06/2016 01336 Arthroplasty,Total Shoulder Replacement (TSR) Completed 02/17/2016 92394 Inject/Drain Joint/Bursa Major W/O US Completed 01/06/2016 29553 Chemotherpy Admin Subcutaneous/Im Non-Hormonal Completed Anti-Neoplastic 08/25/2015 85293 Nerve Conduction 07-08 Studies Completed 06/24/2015 49709 Chemotherpy Admin Subcutaneous/Im Non-Hormonal Completed Anti-Neoplastic 05/21/2015 [id number] Bone Mineral Density Test Completed 03/20/2014 10249 Repair Nonunion/Malunion Humerus Completed 03/20/2014 72700 Repair Nonunion/Malunion Humerus Completed 03/05/2014 46350 Rad Exam; Humerus Completed 02/03/2014 97666 Rad Exam; Humerus Completed 01/08/2014 37964 Rad Exam; Humerus Completed 12/17/2013 66478 closed tx humeral shaft fx w/manipulation w w/o Completed traction Encounters Type Date Location Provider Dx Diagnosis Office Visit 05/02/2018 [facility] Donaldo Davis, I48.3 Typical atrial 1:30p Of aCty Thurman flutter I44.7 Left bundle-branch block, unspecified I25.10 Athscl heart disease of [place] coronary artery w/o ang pctrs Office Visit 03/28/2018 3:15p [facility] Donaldo Martell I44.7 Left bundle-branch Of Caty Davis M.D. block, unspecified I48.3 Typical atrial flutter I25.10 Athscl heart disease of [place] coronary artery w/o ang pctrs I10 Essential (primary) hypertension Office Visit 03/26/2018 9:30a Rheumatology Estuardo Christiansen, M05.79 Rheu arthritis [facility] rheu factor [facility] site w/o org/sys involv Z79.899 Other ocean transportation intermediary (current) drug therapy M81.0 Age-related osteoporosis w/o current pathological fracture R00.0 Tachycardia, unspecified Office Visit 02/21/2018 9:30a [facility] Donaldo Martell I44.7 Left bundle-branch Of Caty Davis M.D. 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 block, unspecified I25.10 Athscl heart disease of [place] coronary artery w/o ang pctrs I25.5 Ischemic cardiomyopathy I10 Essential (primary) hypertension Office Visit 10/18/2017 8:45a [facility] Donaldo Martell I44.7 Left bundle-branch Of Caty Davis M.D. block, unspecified I25.10 Athscl heart disease of [place] coronary artery w/o ang pctrs I47.1 Supraventricular tachycardia R60.9 Edema, unspecified Office Visit 09/12/2017 9:00a Rheumatology Estuardo Christiansen, M05.79 Rheu arthritis Services Of [facility] w rheu factor mult site w/o org/sys involv M81.0 Age-related osteoporosis w/o current pathological fracture Z79.899 Other ocean transportation intermediary (current) drug therapy Office Visit 09/07/2017 2:00p [facility] Donaldo Martell I25.10 Athscl heart Of Caty Davis M.D. disease of [place] coronary artery w/o ang pctrs I47.1 Supraventricular tachycardia I44.7 Left bundle-branch block, unspecified I10 Essential (primary) hypertension I25.5 Ischemic cardiomyopathy Z95.1 Presence of aortocoronary bypass graft Office Visit 07/05/2017 9:45a [facility] Donaldo Martell I21.4 Non-St elevation Of Caty Davis M.D. 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 Office Visit 06/20/2017 2:12p [facility] Donaldo Martell I21.4 Non-St elevation Of Carcass Trimmer Cuca Davis ([facility]stemi) myocardial infarction I50.9 Heart failure, unspecified R00.0 Tachycardia, unspecified I25.10 Athscl heart disease of [place] coronary artery w/o ang pctrs [facility]2017 [facility] 121.4 Fasciolopsiasis Assoc,pc MD Hospitalists I50.21 Acute systolic (congestive) heart failure J96.01 Acute respiratory failure with hypoxia 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 Office Visit 06/09/2017 9:30a Rheumatology Estuardo Christiansen M05.79 Rheu arthritis Services [facility] rheu factor mult site w/o org/sys involv D50.9 Iron deficiency anemia, unspecified M81.0 Age-related osteoporosis w/o current pathological fracture E55.9 Vitamin D deficiency, unspecified R53.83 Other fatigue Z79.899 Other alf (current) drug therapy M25.512 Pain in left shoulder Office Visit 02/24/2017 9:00a Rheumatology Estuardo Christiansen M05.79 Rheu arthritis [facility] rheu factor mult [facility] w/o org/sys involv R79.82 Elevated C-reactive protein (CRP) D50.9 Iron deficiency anemia, unspecified M81.0 Age-related osteoporosis w/o current pathological fracture E55.9 Vitamin D deficiency, unspecified R05 Cough R30.0 Dysuria Z79.899 Other ocean transportation intermediary (current) drug therapy Z92.29 Personal history of other drug therapy Office Visit 12/06/2016 1:30p Orthopedic Carla Workman M05.79 Rheu arthritis w Services Of rheu factor marcela C.M.A. 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 R79.82 Elevated C-reactive protein (CRP) R70.0 Elevated erythrocyte sedimentation rate D64.9 Anemia, unspecified M81.0 Age-related osteoporosis w/o current pathological fracture Z79.899 Other ocean transportation intermediary (current) drug therapy Office Visit 07/15/2016 9:00a Rheumatology Estuardo Christiansen M05.79 Rheu arthritis Services Of [facility] w rheu factor mult 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 right shoulder Office Visit 03/02/2016 Rheumatology Marvin M05.89 Oth rheumatoid 10:00a Services Of Caty Negro M.D. arthritis w rheumatoid factor mult site G62.9 Polyneuropathy, unspecified Z79.899 Other ocean transportation intermediary (current) drug therapy M81.0 Age-related osteoporosis w/o current pathological fracture Office Visit 02/17/2016 Orthopedic Adriel Junior M19.011 Primary 3:00p Services Of MD Krystal osteoarthritis, C.M.A. right shoulder S46.011A Strain of musc/tend the rotator cuff of right shoulder, init Office Visit 01/06/2016 4:00p Rheumatology Marvin M81.0 Age-related Services Of Caty Negro M.D. 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 arthritis w rheumatoid factor mult site G62.9 Polyneuropathy, unspecified E10.9 Type 1 diabetes mellitus without complications Z79.899 Other ocean transportation intermediary (current) drug therapy Office Visit 07/28/2015 10:40a Rheumatology Marvin M05.89 Oth rheumatoid Services Of Caty Negro M.D. arthritis w rheumatoid factor mult site G62.9 Polyneuropathy, unspecified M81.0 Age-related osteoporosis w/o current pathological fracture Z79.899 Other ocean transportation intermediary (current) drug therapy Office Visit 07/21/2015 [place] Jody Hernandez G62.9 Polyneuropathy, 9:00a Neurologic Cuca Godoy unspecified Services Of [facility] G56.02 Carpal tunnel syndrome, left upper limb G56.01 Carpal tunnel syndrome, right upper limb G56.22 Lesion of ulnar nerve, left upper limb Office Visit 05/20/2015 9:00a Rheumatology Marvin M05.89 Oth rheumatoid Services Of Caty Negro M.D. 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 R20.8 Other disturbances of skin sensation R76.0 Raised antibody titer Office Visit 09/01/2014 2:45p Orthopedic Chester Rainey, V54.09 Other Aftercare Services Of Marc Thurman Involving Internal Fixation Device V67.4 Exam Follow Up Treatment Healed Fracture V15.51 Personal History Of Traumatic Fracture Office Visit 12/17/2013 7:00a Orthopedic Chester Rainey, 812.21 FX Humerus Services Of Marc Thurman [place] Closed Plan of Treatment Future Appointment(s):08/28/2018 9:00 am - KEILA Fraga at Rheumatology [facility]2018 - Estuardo Christiansen, LEONELPM05.79 Rheumatoid arthritis with rheumatoid factor of multiple siteNew Labs:CBC Auto Diff, Ordered: 06/26/18Comp Metabolic Panel, Ordered: 06/26/18C Reactive Protein, Ordered: Erythrocyte Sed Rate, Ordered: 06/26/18Comments:Will get labs today.I will check CT scan If your labs normal and yo do not have inflammation, we will not restart on the MTX.Follow up:8 weeks. Labs [id number] CoughComments:I will need to review CT scanI48.3 Typical atrial flutterComments:Please call Dr. Davis and let him know that you do not have any more Xarelto.M25.511 Pain in right shoulderNew Medication:Diclofenac Sodium 1 % - apply 2 grams on RT shoulder twice dailyNew Labs:Vitamin D Total 25(Oh), Ordered: 06/26/18Comments:We discussed that you may start using the topical antiinflammatory on your shoulder.M81.0 Age-related osteoporosis without current pathological tzujtcL49.899 Other ocean transportation intermediary (current) drug therapy
[2018-06-29] MEDS ORDERED: Meclizine TAB* 12.5 MG PO ONE (10:46)
[2018-06-29 11:04] LABS: Albumin 3.5 g/dL (3.2-5.2); Albumin/Globulin Ratio 1.1 (1-3); BUN/Creatinine Ratio 22.2 (8-20); Calcium 9.5 mg/dL (8.6-10.3); EGFR African American 82.1 (>60); EGFR Non-African American 67.9 (>60); Globulin 3.3 g/dL (2-4); Potassium 4.2 mmol/L (3.5-5.0); Total Bilirubin 1.8 mg/dL (0.2-1.0); Total Protein 6.8 g/dL (6.4-8.9); Troponin I 0.01 ng/mL (<0.04)
[2018-06-29] MEDS ORDERED: Metoprolol Tartrate TAB* 50 mg PO ONE (11:26)
[2018-06-29] MEDS ORDERED: Losartan TAB* 25 MG PO ONE (11:26)
[2018-06-29 16:04] LABS: Urine Appearance Cloudy; Urine Bacteria 3+ (Absent); Urine Bilirubin Negative (Negative); Urine Blood 3+ (Negative); Urine Color Amber; Urine Glucose Negative (Negative); Urine Ketones Negative (Negative); Urine Nitrite Negative (Negative); Urine Protein 2+(100 mg/dL) (Negative); Urine Red Blood Cell 3+(>10/hpf) (Absent); Urine Specific Gravity 1.014 (1.010-1.030); Urine Squamous Epithelial Cell Present (Absent); Urine Urobilinogen Positive (Negative); Urine White Blood Cell 3+(>20/hpf) (Absent)
[2018-06-29] MEDS ORDERED: Metoprolol Tartrate IV* 1 MG/ML 5 ML VIAL IV PRN ×2 (17:50→20:25)
[2018-06-29] MEDS ORDERED: Dextrose 50% Syringe 50 ML* 25 GM/50 ML SYRINGE IV PUSH PRN (18:12)
[2018-06-29] MEDS ORDERED: Furosemide IV* 10 MG/ML VIAL (40 MG) IV ONE (18:14)
[2018-06-29] MEDS: cefTRIAXone(*) 1 GM in NS 0.9% 50 ML* 50 ML IVPB SCH (18:14)
[2018-06-29] MEDS ORDERED: Enoxaparin(*) 40 MG/0.4 ML SYR SUBCUT SCH (19:00)
[2018-06-29] MEDS ORDERED: hydrALAZINE IV* 20 MG/ML VIAL IV SLOW PU PRN (19:04)
[2018-06-29] MEDS: Amiodarone TAB* 200 MG PO SCH (20:09)
[2018-06-29 20:53] LABS: Magnesium 1.1 mg/dL (1.9-2.7)
--- NOTE | 2018-06-29 21:48 | HP ---
CC: Dr. Kanu Bhardwaj; Dr. Davis * HISTORY AND PHYSICAL: DATE OF ADMISSION: 06/30/18 PRIMARY CARE PROVIDER: Dr. Kanu Bhardwaj. ATTENDING PHYSICIAN: Dr. Gold Carbajal * (dictated by FATEMEH Grullon). MOTEL FRONT DESK ATTENDANT: Dr. Davis. CHIEF COMPLAINT: Dizziness today and cough for several months. HISTORY OF PRESENT ILLNESS: Romina Kahn is an 83-year-old white female with past medical history significant for coronary artery disease status post CABG, CHF with reduced ejection fraction, history of stroke, hypertension, hyperlipidemia, diabetes mellitus type 2, history of SVT, history of atrial flutter, who presents to the emergency department due to dizziness and generalized weakness when waking up this morning. She is additionally noting that she has noticed leg swelling for the last 2 weeks and a cough for the last 3 months with production of clear sputum. It has not worsened or improved throughout this entirety of over 3 months. She felt both lightheadedness and room spinning when standing up this morning. She denies feeling shortness of breath, denies orthopnea, denies dyspnea on exertion, chest pain, nausea, vomiting, diarrhea, fever, chills and abdominal pain. In the emergency department, she was found to have a positive [place]-Halpike test. While she was in the emergency department, she originally was not tachycardic and after several hours became tachycardic eventually to the 130s, which later responded to IV Lopressor returning her to the normal heart rate. She was not symptomatic during this time. It is of note that I spoke with the patient's daughter who states that the patient has not been taking her home Xarelto for several weeks and it appears possible that she has not been taking multiple other medications. The patient last saw Dr. Davis in April 2018 and was followed up for her atrial flutter and was advised to continue Xarelto and amiodarone for treatment of this. The hospitalist were asked to evaluate the patient for admission. PAST MEDICAL HISTORY: 1. Hypertension. 2. Hyperlipidemia. 3. Rheumatoid arthritis. 4. Non-insulin dependent diabetes mellitus. 5. CVA in 2013. 6. History of SVT. 7. History of atrial flutter. 8. Possible dementia. 9. Left bundle branch block. 10. Coronary artery disease status post CABG. 11. Restless leg syndrome. 12. CHF with reduced ejection fraction, most recent echo demonstrates EF of 40 % to 45% in June 2017. 13. Carotid artery stenosis of 85% and 95%. PAST SURGICAL HISTORY: 1. Bilateral carotid endarterectomy. 2. CABG in [address] [facility]. 3. Right shoulder surgery. 4. Left shoulder ORIF. 5. Bilateral knee arthroplasties. 6. Cholecystectomy. HOME MEDICATIONS: 1. Ambien 5 mg p.o. q.h.s. p.r.n. 2. Protonix 40 mg p.o. daily. 3. Ropinirole 2 mg q.h.s. 4. Vitamin D3 5000 units daily. 5. Prolia 60 mg subcu every 6 months. 6. Metoprolol tartrate 50 mg p.o. b.i.d. 7. Losartan 50 mg p.o. daily. 8. Vitamin B12 1000 mcg p.o. daily. 9. Xarelto 20 mg p.o. daily (of note, the patient has not been taking this for 2 weeks). 10. Folic acid 1 mg by mouth daily. 11. Methotrexate 10 mg p.o. every week. 12. Amiodarone 200 mg p.o. daily. ALLERGIES: The patient reports nausea and vomiting reaction to OXYCODONE and AUGMENTIN, diarrhea to oral and IODINE CONTRAST, and reports an allergy to hydroxyzine but does not know the reaction. These reactions are not true allergies. FAMILY HISTORY: The patient reports that her mother of an MA at age 59 , father in his 80s of unknown cause to patient. SOCIAL HISTORY: The patient lives with her daughter Grecia Kahn, who she would appoint to make her medical decisions for her should she need them. Her phone number is [phone]. 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 She never smoked, does not drink alcohol, does not use drugs. REVIEW OF SYSTEMS: An 11-point review of systems was completed, and all pertinent positives and negatives are above in the HPI. All other systems are negative. VITAL SIGNS: Vital signs when the patient arrived to the ED: 98.4 temperature , pulse rate 90, respiratory rate 17, O2 98, blood pressure 97/127. PHYSICAL EXAMINATION GENERAL: An obese, white female, lying comfortably in hospital stretcher, appearing in no acute distress. HEENT: Head: Normocephalic, atraumatic. Eyes: PERRL, sclerae anicteric, EOMI. ENT: Mucous membranes are moist. NECK: Without JVD. Neck is supple. RESPIRATORY: End-expiratory wheezing in lung bases. Cough present frequently throughout exam. No crackles or rhonchi present. CARDIO: Tachycardia to 122 on the monitor noted, mild, grade 1 systolic murmur auscultated. ABDOMEN: Abdomen is soft, nontender, nondistended. EXTREMITIES: +2 pitting edema pretibially bilateral lower extremities up to the knees. No clubbing or cyanosis. NEUROLOGIC: The patient is alert and oriented x3. No focal deficits. Strength is 5/5 in all extremities; however, the patient was unable to ambulate further than a few steps with walker. PSYCH: Pleasant and cooperative. SKIN: Skin is warm, dry, and intact. DIAGNOSTIC STUDIES/LAB DATA: EKG at 9:59 on 06/29/18, left bundle branch block consistent with prior EKGs. Normal sinus rhythm, rate 85 beats per minute. There is an appearance of ST elevation in leads V1 through V3, but either consistent with repolarization. T waves inversion in aVF consistent with EKG from 03/27/18. Later, EKG at 18:22 on 06/29/18 after the patient received IV Lopressor with heart rate 56. Normal sinus rhythm except for 1 PVC. T-wave inversion in leads V5, V6, which is consistent with T-wave inversion in same leads from 03/26/18 EKG. Left bundle branches are present. No evidence of atrial fibrillation and atrial flutter. Chest x-ray. Small pleural effusion versus chronic pleural thickening. Cardiomegaly. There does appear to be some pulmonary edema. Brain CT. No evidence for acute intracranial abnormality, atrophy and findings suggested of moderate chronic small vessel ischemic changes. White blood cell count 4.4, hemoglobin 9.7, hematocrit 31, platelet count 217. Sodium 133, potassium 4.2, chloride 99, carbon dioxide 28, BUN 18, creatinine 0.81, glucose 135. Lactic acid 1.1, calcium 9.5. Troponin 0.01, 0.03, and then 0.03. BNP 1003. Urinalysis. Urine protein +2, urine blood +3, urobilinogen positive, leukocyte esterase trace, urine white blood cell count +3, urine red blood cell count +3, urine squamous epithelial cells present, amorphous crystals present, urine bacteria +3. ASSESSMENT AND PLAN: Romina Kahn is an 83-year-old white female with past medical history significant for coronary artery disease, status post coronary artery bypass graft, history of cerebrovascular accident, history of carotid artery stenosis status post endarterectomy, congestive heart failure with reduced ejection fraction, history of supraventricular tachycardia, history of atrial flutter, diabetes mellitus and hypertension who presents to the emergency department with dizziness and generalized weakness, in addition to a cough x3 weeks and peripheral edema x2 weeks. The patient will be admitted in observation for: 1. Congestive heart failure exacerbation. The patient has history of systolic congestive heart failure. Most recent echo demonstrates an ejection fraction of 40% to 45%. The patient has increased peripheral edema for the last 2 weeks and has had a cough for the last 3 months, which is likely related. She does appear to have some pulmonary edema as well and will be given IV Lasix 40 mg today and 20 mg starting tomorrow IV and the patient does not take diuretics at home. We will continue her home metoprolol and losartan. Will give one time duoneb tonight for wheezing and we will monitor respiratory status. 2. Tachycardia. The patient has history of SVTs as well as atrial flutter. After IV Lopressor was given in the emergency department, the patient's tachycardia resolved. EKG was repeated after Lopressor was given. There was no evidence of SVT or atrial flutter. We will continue to monitor this with telemetry. The patient's home amiodarone will be restarted as well as oral metoprolol. Of note, the patient has not been taking her prescribed Xarelto for the last 2 weeks and we will restart this. I will be testing a TSH and magnesium level. 3. Hypertensive urgency. The patient has hypertension, with a systolics in the low 200s when she arrived to the emergency department. She received p.o. Lopressor by the emergency department provider and eventually her hypertension reduced to a blood pressure of 168/87. We will continue to monitor this. We will continue her home metoprolol and losartan. I will add a p.r.n. IV hydralazine for systolic blood pressure over 160. We will continue to monitor this. The patient admits that she did not take any of her oral medications today and this may be a contributing factor. 4. Urinary tract infection. The patient has a positive appearing urinalysis and a urine culture is pending. Start empiric coverages of IV ceftriaxone. The patient meets SIRS criteria with tachycardia and tachypnea; however, I will not be giving IV fluid bolus because of the setting of congestive heart failure exacerbation. The patient has lactic acid less than 2, and no leukocytosis. 5. Coronary artery disease. The patient has negative troponins in the emergency department today. It does not appear that she takes aspirin or Plavix at home. We will continue her home simvastatin. We will start metoprolol. I will be adding a heart healthy without caffeine diet. 6. Diabetes mellitus. It does not appear that the patient takes any diabetes medication at home. I will give a lispro sliding scale, order hemoglobin A1c for the morning and order carb consistent diet. Finger sticks a.c. and h.s. ordered. 7. Restless leg syndrome. Continue the patient's home Requip. 8. Gastroesophageal reflux disease. Continue the patient's home Protonix. 9. Rheumatoid. Continue the patient's home weekly methotrexate if she is inpatient for the next dose. 10. Dizziness. The patient had a positive [place]-Halpike in the emergency department, which makes vertigo likely. However, she additionally was experiencing hypertensive urgency in the emergency department and this may be a contributing factor to her dizziness. We will continue to monitor. It is also possible that her UTI is a contributing factor to her dizziness. The patient did not have visual changes with this dizziness. 11. FEN. No IV fluids will be given due to the setting of congestive heart failure exacerbation. Electrolytes with minimally decreased sodium, but we will continue to monitor this. The patient will receive a carb consistent diet as well as a heart healthy diet without caffeine. 12. Code status. The patient is full code. 13. DVT prophylaxis. The patient will be restarting her home Xarelto and other anticoagulation is therefore contraindicated. TIME SPENT: Approximately 60 minutes was spent on this admission; approximately half of this time was spent at bedside. This case has been reviewed by my attending, Dr. Gold Carbajal, and he agrees with this assessment and plan of care. REE ROJAS, FATEMEH [id number]/[facility] #: [id number] JONES
[2018-06-29] MEDS ORDERED: Albuterol/Ipratropium NEB.SOL* Albuterol 2.5 MG/Ipratropium 0.5 MG 3 ML INH ONE (21:55)
[2018-06-29] MEDS ORDERED: Magnesium Sulfate 2 GM IV* 2 GM/50 ML BAG IVPB ONE (21:56)
[2018-06-29] MEDS: Rivaroxaban TAB(*) 20 MG TAB PO SCH (23:12)
[2018-06-29] MEDS: Metoprolol Tartrate TAB* 50 mg PO SCH (23:12)
[2018-06-29] MEDS: Insulin LISPRO* 1 UNITS UNIT SUBCUT SCH (23:13)
[2018-06-29] MEDS: rOPINIRole TAB* 1 MG PO SCH (23:21)
[2018-06-30] MEDS ORDERED: Magnesium Sulfate 2 GM IV* 2 GM/50 ML BAG IVPB ONE
[2018-06-30] MEDS ORDERED: Furosemide IV* 10 MG/ML 2 ML VIAL (20 MG) IV ONE (06:00)
[2018-06-30 06:42] LABS: ABS Monocytes 0.3 10^3/ul (0-0.8); ABS Neutrophils 4.2 10^3/ul (1.5-7.7); Eosinophil % 0.2 %; Hematocrit 34 % (35-47); Hemoglobin 10.7 g/dL (12.0-16.0); Lymphocyte % 17.9 %; Mean Corpuscular HGB Conc 32 g/dL (31-36); Mean Corpuscular Hemoglobin 30 pg (27-31); Mean Corpuscular Volume 92 fL (80-97); Mean Platelet Volume 8.5 fL (7.4-10.4); Nucleated Red Blood Cells % 0.2; Platelet Count 215 10^3/uL (150-450); Red Blood Count 3.63 10^6 /uL (3.70-4.87); Red Cell Distribution Width 16 % (10.5-15); White Blood Count 5.5 10^3/uL (3.5-10.8)
[2018-06-30 07:00] LABS: BUN/Creatinine Ratio 21.6 (8-20); Calcium 9.2 mg/dL (8.6-10.3); EGFR African American 74.6 (>60); EGFR Non-African American 61.7 (>60); Potassium 4.1 mmol/L (3.5-5.0)
[2018-06-30 07:14] LABS: TSH (Thyroid Stimulating Horm) 1.12 mcIU/mL (0.34-5.60)
[2018-06-30] MEDS: Losartan TAB* 25 MG PO SCH (08:00)
[2018-06-30] MEDS: Metoprolol Tartrate TAB* 50 mg PO SCH ×2 (08:00→20:40)
[2018-06-30] MEDS: Amiodarone TAB* 200 MG PO SCH (08:01)
[2018-06-30] MEDS: Folic Acid TAB* 1 MG PO SCH (08:02)
[2018-06-30] MEDS: Rivaroxaban TAB(*) 20 MG TAB PO SCH (08:02)
[2018-06-30] MEDS: Pantoprazole TAB * 40 MG TAB PO SCH (08:02)
[2018-06-30] MEDS: Cyanocobalamin TAB* 500 MCG PO SCH (08:02)
[2018-06-30] MEDS: Cholecalciferol TAB* 1000 UNITS PO SCH (08:02)
[2018-06-30] MEDS: Insulin LISPRO* 1 UNITS UNIT SUBCUT SCH ×3 (09:41→16:55)
--- NOTE | 2018-06-30 16:30 | PN ---
Subjective Date of Service: 06/30/18 Interval History: Reports improvement in dizziness,sob and overall feels better Objective Active Medications: Amiodarone HCl (Cordarone Tab*) 200 mg PO DAILY [facility] Last Admin: 06/30/18 08:01 Dose: 200 mg Cholecalciferol (Vitamin D Tab*) 5,000 units PO DAILY [facility] Last Admin: 06/30/18 08:02 Dose: 5,000 units Cyanocobalamin (Vitamin B12 Tab*) 1,000 mcg PO DAILY [facility] Last Admin: 06/30/18 08:02 Dose: 1,000 mcg Dextrose (D50w Syringe 50 Ml*) 12.5 gm IV PUSH .FOR FS < 60 - SS PRN PRN Reason: FS < 60 Folic Acid (Folvite Tab*) 1 mg PO QAM [facility] Last Admin: 06/30/18 08:02 Dose: 1 mg Hydralazine HCl (Apresoline Iv*) 5 mg IV SLOW PU Q6H PRN PRN Reason: SYSTOLIC BP GREATER THAN: Ceftriaxone Sodium 1 gm/ (Sodium Chloride) 50 mls @ 200 mls/hr IVPB Q24H [facility] Last Admin: 06/29/18 18:14 Dose: 200 mls/hr Insulin Human Lispro (Humalog*) 0 units SUBCUT AC [facility]; Protocol Last Admin: 06/30/18 12:37 Dose: 2 unit Losartan Potassium (Cozaar Tab*) 50 mg PO DAILY [facility] Last Admin: 06/30/18 08:00 Dose: 50 mg Methotrexate (Methotrexate Tab*) 10 mg PO WEEKLY@0900 [facility] Metoprolol Tartrate (Lopressor Tab*) 50 mg PO BID [facility] Last Admin: 06/30/18 08:00 Dose: 50 mg Metoprolol Tartrate (Lopressor Iv*) 5 mg IV Q6H PRN PRN Reason: TACHYCARDIA Pantoprazole Sodium (Protonix Tab*) 40 mg PO DAILY [facility] Last Admin: 06/30/18 08:02 Dose: 40 mg Rivaroxaban (Xarelto(*)) 20 mg PO DAILY [facility] Last Admin: 06/30/18 08:02 Dose: 20 mg Ropinirole HCl (Requip Tab*) 2 mg PO BEDTIME [facility] Last Admin: 06/29/18 23:21 Dose: 2 mg Vital Signs - 8 hr 06/30/18 11:58 Temperature 97.7 F Pulse Rate 49 Respiratory 18 Rate Blood Pressure 125/47 (mmHg) O2 Sat by Pulse 99 Oximetry Oxygen Devices in Use Now: None Eyes: No Scleral Icterus Ears/Nose/Mouth/Throat: NL Teeth, Lips, Gums Neck: NL Appearance and Movements; NL JVP Respiratory: Symmetrical Chest Expansion and Respiratory Effort, - - crackles bases Cardiovascular: NL Sounds; No Murmurs; No JVD Extremities: - - 2+ Edema Result Diagrams: 06/30/18 06:01 06/30/18 06:01 Microbiology and Other Data: Microbiology 06/29/18 11:36 Urine Culture - Preliminary Urine Escherichia Coli Assess/Plan/Problems-Billing Assessment: - Patient Problems (1) Acute exacerbation of CHF (congestive heart failure) Current Visit: Yes Status: Acute Code(s): I50.9 - HEART FAILURE, UNSPECIFIED SNOMED Code(s): 337146180 Comment: Will continue lasix iv good response with uop can uptitrate if needed ef 40-45% sob improved (2) UTI (urinary tract infection) Current Visit: Yes Status: Acute Comment: continue ceftriaxone cx e coli (3) Atrial flutter Current Visit: Yes Status: Acute Code(s): I48.92 - UNSPECIFIED ATRIAL FLUTTER SNOMED Code(s): 4095061 Comment: tachycardic and dizzy yesterday recd iv lopressor continue metoprolol amiodarone and restarted on xarelto (4) Hypertensive urgency Current Visit: Yes Status: Acute Code(s): I16.0 - HYPERTENSIVE URGENCY SNOMED Code(s): 343530886 Comment: bp in 200s on admission with pul edema improved continue metoprolol lasix losartan prn meds bp improved
[2018-06-30] MEDS: Acetaminophen TAB* 325 MG PO PRN (17:38)
[2018-06-30] MEDS: cefTRIAXone(*) 1 GM in NS 0.9% 50 ML* 50 ML IVPB SCH (17:39)
[2018-06-30] MEDS: rOPINIRole TAB* 1 MG PO SCH (20:40)
[2018-07-01 06:49] LABS: ABS Basophils 0.1 10^3/ul (0-0.2); ABS Eosinophils 0.1 10^3/ul (0-0.6); ABS Lymphocytes 2.5 10^3/ul (1.0-4.8); ABS Monocytes 0.5 10^3/ul (0-0.8); Eosinophil % 1.5 %; Hematocrit 33 % (35-47); Hemoglobin 10.3 g/dL (12.0-16.0); Lymphocyte % 40.9 %; Mean Corpuscular HGB Conc 32 g/dL (31-36); Mean Corpuscular Hemoglobin 29 pg (27-31); Mean Corpuscular Volume 93 fL (80-97); Mean Platelet Volume 8.8 fL (7.4-10.4); Nucleated Red Blood Cells % 0.2; Platelet Count 199 10^3/uL (150-450); Red Blood Count 3.51 10^6 /uL (3.70-4.87); Red Cell Distribution Width 16 % (10.5-15); White Blood Count 6.1 10^3/uL (3.5-10.8)
[2018-07-01 07:00] LABS: BUN/Creatinine Ratio 25.7 (8-20); Calcium 8.9 mg/dL (8.6-10.3); EGFR African American 60.9 (>60); EGFR Non-African American 50.3 (>60); Potassium 3.7 mmol/L (3.5-5.0)
[2018-07-01] MEDS: Insulin LISPRO* 1 UNITS UNIT SUBCUT SCH ×3 (07:41→16:21)
[2018-07-01] MEDS: Metoprolol Tartrate TAB* 50 mg PO SCH ×3 (10:05→20:37)
[2018-07-01] MEDS: Losartan TAB* 25 MG PO SCH (10:09)
[2018-07-01] MEDS: Folic Acid TAB* 1 MG PO SCH (10:09)
[2018-07-01] MEDS: Cholecalciferol TAB* 1000 UNITS PO SCH (10:09)
[2018-07-01] MEDS: Cyanocobalamin TAB* 500 MCG PO SCH (10:10)
[2018-07-01] MEDS: Furosemide IV* 10 MG/ML VIAL (40 MG) IV SCH (10:10)
[2018-07-01] MEDS: Amiodarone TAB* 200 MG PO SCH (10:10)
[2018-07-01] MEDS: Rivaroxaban TAB(*) 20 MG TAB PO SCH (10:10)
[2018-07-01] MEDS: Pantoprazole TAB * 40 MG TAB PO SCH (10:10)
--- NOTE | 2018-07-01 13:36 | PN ---
Subjective Date of Service: 07/01/18 Interval History: Pt reports no further dizziness,sob.Reports feeling significantly better than when she came in Objective Active Medications: Acetaminophen (Tylenol Tab*) 650 mg PO Q6H PRN PRN Reason: DISCOMFORT Last Admin: 06/30/18 17:38 Dose: 650 mg Amiodarone HCl (Cordarone Tab*) 200 mg PO DAILY [facility] Last Admin: 07/01/18 10:10 Dose: 200 mg Cholecalciferol (Vitamin D Tab*) 5,000 units PO DAILY [facility] Last Admin: 07/01/18 10:09 Dose: 5,000 units Cyanocobalamin (Vitamin B12 Tab*) 1,000 mcg PO DAILY [facility] Last Admin: 07/01/18 10:10 Dose: 1,000 mcg Dextrose (D50w Syringe 50 Ml*) 12.5 gm IV PUSH .FOR FS < 60 - SS PRN PRN Reason: FS < 60 Folic Acid (Folvite Tab*) 1 mg PO QAM [facility] Last Admin: 07/01/18 10:09 Dose: 1 mg Furosemide (Lasix Iv*) 40 mg IV DAILY [facility] Last Admin: 07/01/18 10:10 Dose: 40 mg Hydralazine HCl (Apresoline Iv*) 5 mg IV SLOW PU Q6H PRN PRN Reason: SYSTOLIC BP GREATER THAN: Ceftriaxone Sodium 1 gm/ (Sodium Chloride) 50 mls @ 200 mls/hr IVPB Q24H [facility] Last Admin: 06/30/18 17:39 Dose: 200 mls/hr Insulin Human Lispro (Humalog*) 0 units SUBCUT AC [facility]; Protocol Last Admin: 07/01/18 12:40 Dose: 3 unit Losartan Potassium (Cozaar Tab*) 50 mg PO DAILY [facility] Last Admin: 07/01/18 10:09 Dose: 50 mg Methotrexate (Methotrexate Tab*) 10 mg PO WEEKLY@0900 [facility] Metoprolol Tartrate (Lopressor Tab*) 50 mg PO BID [facility] Last Admin: 07/01/18 13:29 Dose: 50 mg Metoprolol Tartrate (Lopressor Iv*) 5 mg IV Q6H PRN PRN Reason: TACHYCARDIA Pantoprazole Sodium (Protonix Tab*) 40 mg PO DAILY [facility] Last Admin: 07/01/18 10:10 Dose: 40 mg Rivaroxaban (Xarelto(*)) 20 mg PO DAILY [facility] Last Admin: 05/12/19 10:10 Dose: 20 mg Ropinirole HCl (Requip Tab*) 2 mg PO BEDTIME [facility] Last Admin: 06/30/18 20:40 Dose: 2 mg Vital Signs - 8 hr 07/01/18 07/01/18 07/01/18 07:19 07:30 11:35 Temperature 98.2 F 97.7 F Pulse Rate 54 55 Respiratory 18 18 18 Rate Blood Pressure 166/65 148/56 (mmHg) O2 Sat by Pulse 96 100 Oximetry Oxygen Devices in Use Now: None Eyes: No Scleral Icterus Neck: NL Appearance and Movements; NL JVP Respiratory: Symmetrical Chest Expansion and Respiratory Effort, - - crackles at bases improving Cardiovascular: NL Sounds; No Murmurs; No JVD Abdominal: NL Sounds; No Tenderness; No Distention Extremities: - - 2+ Edema Neurological: Alert and Oriented x 3 Result Diagrams: 07/01/18 05:59 07/01/18 05:59 Microbiology and Other Data: Microbiology 06/29/18 11:36 Urine Culture - Preliminary Urine Escherichia Coli Assess/Plan/Problems-Billing Assessment: - Patient Problems (1) Acute exacerbation of CHF (congestive heart failure) Current Visit: Yes Status: Acute Code(s): I50.9 - HEART FAILURE, UNSPECIFIED SNOMED Code(s): 595742222 Comment: Will continue lasix iv good response with uop can uptitrate if needed ef 40-45% sob improved (2) UTI (urinary tract infection) Current Visit: Yes Status: Acute Comment: continue ceftriaxone cx e coli (3) Atrial flutter Current Visit: Yes Status: Acute Code(s): I48.92 - UNSPECIFIED ATRIAL FLUTTER SNOMED Code(s): 7016846 Comment: tachycardic and dizzy on admission h/o svt and a flutter recd iv lopressor continue metoprolol amiodarone and restarted on xarelto (4) Hypertensive urgency Current Visit: Yes Status: Acute Code(s): I16.0 - HYPERTENSIVE URGENCY SNOMED Code(s): 393758352 Comment: bp in 200s on admission with pul edema improved continue metoprolol lasix losartan prn meds bp improved
[2018-07-01] MEDS: cefTRIAXone(*) 1 GM in NS 0.9% 50 ML* 50 ML IVPB SCH (17:38)
[2018-07-01] MEDS: rOPINIRole TAB* 1 MG PO SCH (20:34)
[2018-07-02 06:25] LABS: ABS Basophils 0.1 10^3/ul (0-0.2); ABS Eosinophils 0.1 10^3/ul (0-0.6); ABS Lymphocytes 1.8 10^3/ul (1.0-4.8); ABS Monocytes 0.4 10^3/ul (0-0.8); Eosinophil % 1.3 %; Hematocrit 31 % (35-47); Hemoglobin 9.9 g/dL (12.0-16.0); Lymphocyte % 33.6 %; Mean Corpuscular HGB Conc 32 g/dL (31-36); Mean Corpuscular Hemoglobin 29 pg (27-31); Mean Corpuscular Volume 93 fL (80-97); Mean Platelet Volume 8.5 fL (7.4-10.4); Nucleated Red Blood Cells % 0.2; Platelet Count 221 10^3/uL (150-450); Red Blood Count 3.35 10^6 /uL (3.70-4.87); Red Cell Distribution Width 17 % (10.5-15); White Blood Count 5.4 10^3/uL (3.5-10.8)
[2018-07-02 08:04] LABS: Calcium 9.1 mg/dL (8.6-10.3); Potassium 3.6 mmol/L (3.5-5.0)
[2018-07-02 08:10] LABS: BUN/Creatinine Ratio 26.9 (8-20); EGFR African American 58.9 (>60); EGFR Non-African American 48.7 (>60)
[2018-07-02] MEDS: Cyanocobalamin TAB* 500 MCG PO SCH (09:36)
[2018-07-02] MEDS: Losartan TAB* 25 MG PO SCH (09:36)
[2018-07-02] MEDS: Cholecalciferol TAB* 1000 UNITS PO SCH (09:36)
[2018-07-02] MEDS: Folic Acid TAB* 1 MG PO SCH (09:37)
[2018-07-02] MEDS: Furosemide IV* 10 MG/ML VIAL (40 MG) IV SCH (09:37)
[2018-07-02] MEDS: Metoprolol Tartrate TAB* 50 mg PO SCH ×2 (09:37→20:16)
[2018-07-02] MEDS: Pantoprazole TAB * 40 MG TAB PO SCH (09:37)
[2018-07-02] MEDS: Insulin LISPRO* 1 UNITS UNIT SUBCUT SCH ×3 (09:37→17:22)
[2018-07-02] MEDS: Amiodarone TAB* 200 MG PO SCH (09:37)
[2018-07-02] MEDS: Rivaroxaban TAB(*) 20 MG TAB PO SCH (09:37)
--- NOTE | 2018-07-02 14:36 | ECHO ---
*[facility]* [place] [address] Fax #: [phone] Transthoracic Echocardiogram Patient: Femi, Height: 61 in / Romina P 154.9 cm : 1935 Weight: 169.6 lb / Study Date: 07/02/2018 77.1 kg Age: 83 BP: 138 / 62 Gender: F BMI/BSA: 32.1 kg/m^2 HR: 46 bpm / 1.85 m^2 *Moving Picture Operator: Laila Millan [facility] *Referring Physician: * O'Sherin Puckett *Reading Physician: * Donaldo Davis MD Indications: Congestive Heart Failure. History: Atrial flutter. Supraventricular tachycardia. Congestive heart failure. Cerebrovascular accident. Risk factors: Hypertension. Diabetes mellitus. Dyslipidemia. Labs, prior tests, procedures, and surgery: Coronary artery bypass grafting. Conclusions Summary: 1. Left ventricle: Systolic function is mildly reduced. The estimated ejection fraction is 40-45%. There is moderate interventricular dyssynchrony due to LBBB 2. Right ventricle: Systolic pressure is moderately to severely increased. 3. Ventricular septum: There is septal flattening of the interventricular septum consistent with RV volume or pressure overload. 4. Left atrium: The atrium is severely dilated. 5. Mitral valve: There is mild regurgitation. 6. Aortic valve: There is no evidence of stenosis. There is no significant regurgitation. 7. Tricuspid valve: There is severe regurgitation. The peak diastolic gradient is 28.9 mm Hg. 8. Pulmonic valve: There is mild to moderate regurgitation. 9. Pericardium, extracardiac: There is no significant pericardial effusion. 10. Impressions: The study is unchanged since the study of 06/20/2017. Study data: Transthoracic echocardiogram. Procedure: Transthoracic echocardiography was performed. Image quality was good. Complete 2D, spectral Doppler, and color flow Doppler. Location: Bedside. Patient status: Inpatient. Patient room number: 443 02. Rhythm: Bradycardia. Findings Left ventricle: The cavity size is normal. Wall thickness is normal. Systolic function is mildly reduced. The estimated ejection fraction is 40-45%. There is moderate interventricular dyssynchrony due to LBBB Left ventricular diastolic function parameters are indeterminate. Right ventricle: The cavity size is normal. Systolic function is normal. Systolic pressure is moderately to severely increased. Ventricular septum: There is septal flattening of the interventricular septum consistent with RV volume or pressure overload. Left atrium: The atrium is severely dilated. Right atrium: The atrium is moderately to severely dilated. Atrial septum: The septum bows from right to left, consistent with increased right atrial pressure. Mitral valve: The leaflets are mildly thickened. There is no evidence of stenosis. There is mild regurgitation. The valve area is 1.1 cm^2. The valve area index is 0.6 cm^2/m^2. The valve area by pressure half-time is 3.1 cm^2. The valve area index by pressure half-time is 1.68 cm^2/m^2. The valve area (LVOT continuity) is 1.1 cm^2. The valve area index (LVOT continuity) is 0.6 cm^2/m^2. The mean diastolic gradient is 1.8 mm Hg. The peak diastolic gradient is 9.3 mm Hg. Aortic valve: The valve is trileaflet. The leaflets are normal thickness. There is no evidence of stenosis. There is no significant regurgitation. The LVOT to aortic valve VTI ratio is 0.63. The valve area by the velocity-time integral method is 1.80 cm^2. The valve area index by the velocity-time integral method is 0.97 cm^2/m^2. The ratio of LVOT to aortic valve peak velocity is 0.65. The valve area by the peak velocity method is 1.83 cm^2. The valve area index by the peak velocity method is 0.99 cm^2/m^2. The ratio of LVOT to aortic valve mean velocity is 0.68. The valve area by the mean velocity method is 1.9 cm^2. The valve area index by the mean velocity method is 1.03 cm^2/m^2. The mean systolic gradient is 5.1 mm Hg. The peak systolic gradient is 9.2 mm Hg. Tricuspid valve: The leaflets are normal thickness. There is no evidence of stenosis. There is severe regurgitation. The peak diastolic gradient is 28.9 mm Hg. Pulmonic valve: The leaflets are normal thickness. There is no evidence of stenosis. There is mild to moderate regurgitation. The peak systolic gradient is 1.6 mm Hg. Aorta: Aortic arch: The aortic arch is appears normal. The aortic root is not dilated. Pericardium: There is no significant pericardial effusion. Pulmonary arteries: The main pulmonary artery is normal-sized. Systemic veins: Inferior vena cava: The vessel is dilated. The respirophasic diameter changes are blunted (< 50%). Measurements Left ventricle Value Ref Right atrium Value Ref SOHAN, LAX 4.5 cm 3.8 - 5.2 SI dim, ES (H) 6.4 cm 3.4 - 5.3 ESD, LAX (H) 3.7 cm 2.2 - 3.5 ML dim, ES, A4C (H) 5.1 cm 2.6 - 4.4 ESD/bsa, LAX 2.0 cm/m^2 1.3 - 2.1 Estimated RAP 20 mm Hg --------- FS, LAX (L) 17 % PW, ED, LAX 0.8 cm 0.6 - 0.9 Aortic valve Value Ref PW/ID, ED, LAX 0.18 --------- Peak v, S 1.52 m/sec --------- SOHAN 4.5 cm 3.8 - 5.2 Mean v, S 1.06 m/sec --------- ESD (H) 3.7 cm 2.2 - 3.5 VTI, S 33.9 cm --------- SOHAN/bsa 2.4 cm/m^2 2.3 - 3.1 Mean grad, S 5.1 mm Hg --------- ESD/bsa 2.0 cm/m^2 1.3 - 2.1 Peak grad, S 9.2 mm Hg --------- FS (L) 17 % NADJA, VTI 1.80 cm^2 --------- Mid-wall FS 9 % --------- NADJA, Vmax 1.83 cm^2 --------- PW, ED 0.8 cm 0.6 - 0.9 IVS/PW, ED 1.26 --------- Mitral valve Value Ref PW/ID, ED 0.18 --------- Peak E 1.35 m/sec --------- EF (L) 36 % 54 - 74 Peak A 0.89 m/sec --------- Mass 134 g 66 - 150 VTI leaflet coapt 53.0 cm --------- Mass/bsa 72 g/m^2 44 - 88 Decel time 327 ms --------- Mass/ht 86.50 g/m --------- PHT 70 ms --------- Mass/ht^2.7 41.09 g/m^2.7 --------- Mean grad, D 1.8 mm Hg --------- E', lat yana, TDI (L) 7.6 cm/sec >=10.0 Peak grad, D 9.3 mm Hg ---- ----- E/e', lat yana, 18 --------- Peak E/A ratio 1.51 ------- -- TDI MVA 1.1 cm^2 --------- MVA, PHT 3.1 cm^2 --------- LVOT Value Ref Diam, S 1.89 cm --------- Tricuspid valve Value Ref Area 2.8 cm^2 --------- TR peak v (H) 3 m/sec <=2.8 Peak jen, S 0.99 m/sec --------- Peak RV-RA grad, S 36 mm Hg --------- Mean jen, S 0.73 m/sec --------- VTI, S 21.2 cm --------- Aortic root Value Ref Peak grad, S 4 mm Hg --------- Root diam 1.8 cm <4.0 Mean grad, S 2 mm Hg --------- Aortic arch Value Ref Ventricular septum Value Ref Arch diam 2.7 cm --------- IVS, ED, LAX (H) 1.0 cm 0.6 - 0.9 IVS, ED (H) 1.0 cm 0.6 - 0.9 Decending aorta Value Ref Javier peak jen 0.36 m/sec --------- Right ventricle Value Ref SOHAN, LAX 3.2 cm --------- Pulmonary artery Value Ref SOHAN major ax, A4C (L) 3.6 cm 5.9 - 8.3 Pressure, S 54.4 mm Hg --------- Pressure, S 56 mm Hg --------- Inferior vena cava Value Ref Left atrium Value Ref Diam 2.7 cm --------- AP dim, ES (H) 5.24 cm 2.70 - 3.80 SI dim ES, LAX 5.2 cm --------- ML dim, A4C 4.7 cm --------- Vol/bsa, ES, 2-p (H) 53 ml/m^2 16 - 34 Legend: (L) and (H) gloria values outside specified reference range. Prepared and electronically signed by Donaldo Davis MD 07/02/2018 14:36
--- NOTE | 2018-07-02 16:06 | PN ---
Subjective Date of Service: 07/02/18 Interval History: Pt feels well. Her chronic r shoulder pain got worse [place] [facility] SOB resolved On telem HR 120-40 Objective Active Medications: Acetaminophen (Tylenol Tab*) 650 mg PO Q6H PRN PRN Reason: DISCOMFORT Last Admin: 06/30/18 17:38 Dose: 650 mg Amiodarone HCl (Cordarone Tab*) 200 mg PO DAILY [facility] Last Admin: 07/02/18 09:37 Dose: 200 mg Cholecalciferol (Vitamin D Tab*) 5,000 units PO DAILY [facility] Last Admin: 07/02/18 09:36 Dose: 5,000 units Cyanocobalamin (Vitamin B12 Tab*) 1,000 mcg PO DAILY [facility] Last Admin: 07/02/18 09:36 Dose: 1,000 mcg Dextrose (D50w Syringe 50 Ml*) 12.5 gm IV PUSH .FOR FS < 60 - SS PRN PRN Reason: FS < 60 Folic Acid (Folvite Tab*) 1 mg PO QAM [facility] Last Admin: 07/02/18 09:37 Dose: 1 mg Furosemide (Lasix Iv*) 40 mg IV DAILY [facility] Last Admin: 07/02/18 09:37 Dose: 40 mg Hydralazine HCl (Apresoline Iv*) 5 mg IV SLOW PU Q6H PRN PRN Reason: SYSTOLIC BP GREATER THAN: Ceftriaxone Sodium 1 gm/ (Sodium Chloride) 50 mls @ 200 mls/hr IVPB Q24H [facility] Last Admin: 07/01/18 17:38 Dose: 200 mls/hr Insulin Human Lispro (Humalog*) 0 units [facility]; Protocol Last Admin: 07/02/18 11:44 Dose: Not Given Losartan Potassium (Cozaar Tab*) 50 mg PO DAILY [facility] Last Admin: 07/02/18 09:36 Dose: 50 mg Methotrexate (Methotrexate Tab*) 10 mg PO WEEKLY@0900 [facility] Metoprolol Tartrate (Lopressor Tab*) 50 mg PO BID [facility] Last Admin: 07/02/18 09:37 Dose: 50 mg Metoprolol Tartrate (Lopressor Iv*) 5 mg IV Q6H PRN PRN Reason: TACHYCARDIA Pantoprazole Sodium (Protonix Tab*) 40 mg PO DAILY [facility] Last Admin: 07/02/18 09:37 Dose: 40 mg Ropinirole HCl (Requip Tab*) 2 mg PO BEDTIME JIGAR Last Admin: 07/01/18 20:34 Dose: 2 mg Vital Signs - 8 hr 07/02/18 07/02/18 07/02/18 09:35 11:48 15:40 Temperature 98.1 F 97.4 F Pulse Rate 110 47 50 Respiratory 20 16 Rate Blood Pressure 131/50 129/58 (mmHg) O2 Sat by Pulse 100 100 Oximetry Oxygen Devices in Use Now: None Appearance: 83 yo F in nAD, aAOx3 Eyes: No Scleral Icterus, PERRLA Ears/Nose/Mouth/Throat: NL Teeth, Lips, Gums, Mucous Membranes Moist Neck: NL Appearance and Movements; NL JVP, Trachea Midline Respiratory: Symmetrical Chest Expansion and Respiratory Effort, Clear to Auscultation Cardiovascular: RRR, - - michelle during eval Lymphatic: No Cervical Adenopathy Extremities: No Clubbing, Cyanosis, - - +1 pitting pedal edema L>R Skin: No Rash or Ulcers, No Nodules or Sclerosis Neurological: Alert and Oriented x 3, NL Muscle Strength and Tone Result Diagrams: 07/02/18 06:07 07/02/18 06:07 Microbiology and Other Data: Microbiology 06/29/18 11:36 Urine Culture - Preliminary Urine Escherichia Coli Assess/Plan/Problems-Billing Assessment: 83 yo F with h/o chronic a. flutter presents with CHF, tachy-michelle and UTI - Patient Problems (1) Acute exacerbation of CHF (congestive heart failure) Comment: Will continue lasix iv good response with uop can uptitrate if needed ef 40-45% sob improved (2) Atrial flutter Comment: tachycardic and dizzy on admission h/o svt and a flutter continue metoprolol amiodarone Now with tachy-michelle appreciate Dr. Davis's consult. for pacer on Mon with Dr. Patel. Xarelto held (3) Hypertensive urgency Comment: bp in 200s on admission with pul edema improved continue metoprolol lasix losartan prn meds bp improved, but now pt with tachy michelle syndrome (4) UTI (urinary tract infection) Comment: continue ceftriaxone cx e coli (5) Type 2 diabetes mellitus Comment: diet controlled, cont ISS (6) DVT prophylaxis Comment: stopping Xarelto prior to pacer on Mon. As per d/w DR. Davis pt should receive a dose of Lovenox 1mg /kg at 6 pm Tues night-ordered Status and Disposition: inpatient
[2018-07-02] MEDS: Acetaminophen TAB* 325 MG PO PRN (16:17)
[2018-07-02] MEDS: cefTRIAXone(*) 1 GM in NS 0.9% 50 ML* 50 ML IVPB SCH (17:23)
--- NOTE | 2018-07-02 19:24 | CONS ---
CC: Dr. Kanu Bhardwaj; Dr. Zahra Patel * CARDIOLOGY CONSULTATION: DATE OF CONSULT: 07/02/18 INDICATION FOR CONSULTATION: Coronary artery disease, sick sinus syndrome, paroxysmal atrial flutter. HISTORY OF PRESENT ILLNESS: The patient is an 83-year-old female with a history of coronary artery disease, history of coronary artery bypass in June of 2017. At that time, she had a mitral valve repair. She had a FARFAN to her LAD, a saphenous vein graft to OM, and a saphenous vein graft to the PDA. The patient has actually recovered nicely from this. I have been following the patient for her paroxysmal atrial fibrillation. She was admitted to the hospital with an episode of dizziness potentially due to vertigo, but could not rule out dizziness due to bradycardia. While she is in the hospital here, she has been having runs of atrial flutter up to 120 beats a minute as well as sinus bradycardia down in the 40 beats per minute. She does have an underlying left bundle-branch block. When the patient's heart rate goes down to 40 and she is in bed, she does not have any symptoms. The patient has not been up active very much since she has been in the hospital. She denies any angina. She denies any palpitations. She denies any fevers or chills. PAST MEDICAL HISTORY: Significant for hypertension, CVA, carotid disease, atrial flutter, left bundle-branch block, mitral valve repair, and coronary artery bypass surgery in 2018, gastroesophageal reflux disease. PAST SURGICAL HISTORY: Coronary artery bypass surgery as described, bilateral knee replacements, carotid endarterectomy on the right and left, cholecystectomy. OUTPATIENT MEDICATIONS: 1. Xarelto 20 mg a day. 2. Amiodarone 200 mg a day. 3. Protonix 40 mg a day. 4. Metoprolol tartrate 50 mg b.i.d. 5. Prolia as directed. 6. Methotrexate 2.5 mg 4 tablets once a week. 7. Losartan 50 mg a day. 8. Ambien as directed. ALLERGIES: She is intolerant of Augmentin, amoxicillin, contrast dye agents. FAMILY HISTORY: Significant for heart disease and diabetes. SOCIAL HISTORY: She lives with her daughter. She is retired. She does not follow any specific diet. She denies tobacco or alcohol use. She does not get any regular exercise. PHYSICAL EXAM: Height is 5 feet 1 inch, weight is 167 pounds, temperature 97.4 , heart rate is 50, and blood pressure 129/58, respiratory rate is 16, oxygen saturation 99% on 2 L. Sclerae anicteric. Oropharynx is pink without erythema. Carotids are 2+ without bruits. JVD is normal. Thyroid is normal. Cardiac Exam: S1, S2 with a 1/6 systolic ejection murmur. No diastolic murmur. PMI is normal. Lungs are clear to auscultation bilaterally. There is no dullness to percussion. Abdomen is soft, nontender, nondistended with normoactive bowel sounds. Extremities show no edema. She has 2+ pulses throughout. The patient is awake, alert, and oriented. She moves all 4 extremities equally. LABORATORY STUDIES: CBC within normal limits. Sodium was 132, BUN 29, creatinine 1.08. BNP was 1000 on admission. TSH 1.1. IMPRESSION AND PLAN: This is an 83-year-old female with a history of coronary artery disease, coronary artery bypass surgery, and mitral valve repair 1 year ago. The patient has a history of atrial flutter. The patient has been on amiodarone for suppression of her atrial flutter with reasonable success. She still has breakthrough episodes of tachycardia. 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 It is my recommendation that the patient undergo a dual-chamber pacemaker implantation. Risks and benefits of this were described in detail and the patient is willing to proceed. The patient's current medications will remain the same. Further recommendations on medication changes will be made after her pacemaker implantation. [id number] #: [id number] JONES
[2018-07-02] MEDS: rOPINIRole TAB* 1 MG PO SCH (20:16)
[2018-07-02] MEDS ORDERED: Heparin VIAL(*) 5000 UNITS/ML VIAL (FIVE THOUSAND) SUBCUT SCH (22:00)
[2018-07-03 06:41] LABS: BUN/Creatinine Ratio 29.8 (8-20); Calcium 9.3 mg/dL (8.6-10.3); EGFR African American 61.5 (>60); EGFR Non-African American 50.9 (>60); Potassium 3.5 mmol/L (3.5-5.0)
[2018-07-03] MEDS: Acetaminophen TAB* 325 MG PO PRN ×3 (07:00→20:17)
--- NOTE | 2018-07-03 08:27 | PN ---
Addendum entered and electronically signed by Cherelle Miller NP 07/03/18 09:18 : Subjective Date of Service: 07/03/18 - c/o dizziness, SSS, UTI. Interval History: Spoke to RN today no events last night. Patient remains in Sinus michelle HR 40's with occasional PVC. She has been on IV Rocephin since 06/29/2018 due to UTI ( E.Coli). She is sitting in chair eating breakfast and offers no complaints. She denies further episodes of dizziness. Denies chest pain, SOB. Adds that her dysuria and urinary frequency /itching has improved since antibiotic initiation. Medications Active Medications: Acetaminophen (Tylenol Tab*) 650 mg PO Q6H PRN PRN Reason: DISCOMFORT Last Admin: 07/03/18 07:00 Dose: 650 mg Amiodarone HCl (Cordarone Tab*) 200 mg PO DAILY [facility] Last Admin: 07/02/18 09:37 Dose: 200 mg Cholecalciferol (Vitamin D Tab*) 5,000 units PO DAILY [facility] Last Admin: 07/02/18 09:36 Dose: 5,000 units Cyanocobalamin (Vitamin B12 Tab*) 1,000 mcg PO DAILY [facility] Last Admin: 07/02/18 09:36 Dose: 1,000 mcg Dextrose (D50w Syringe 50 Ml*) 12.5 gm IV PUSH .FOR FS < 60 - SS PRN PRN Reason: FS < 60 Enoxaparin Sodium (Lovenox(*)) 70 mg SUBCUT ONCE ONE Stop: 07/03/18 18:01 Folic Acid (Folvite Tab*) 1 mg PO QAM [facility] Last Admin: 07/02/18 09:37 Dose: 1 mg Hydralazine HCl (Apresoline Iv*) 5 mg IV SLOW PU Q6H PRN PRN Reason: SYSTOLIC BP GREATER THAN: Ceftriaxone Sodium 1 gm/ (Sodium Chloride) 50 mls @ 200 mls/hr IVPB Q24H [facility] Last Admin: 07/02/18 17:23 Dose: 200 mls/hr Sodium Chloride (Ns 0.9% 1000 Ml) 1,000 mls @ 100 mls/hr IV PER RATE [facility] Cefazolin Sodium 1 gm/ Sterile (Water) 10 mls @ 60 mls/hr IVPB ONCE ONE Stop: 07/04/18 08:08 Insulin Human Lispro (Humalog*) 0 units SUBCUT [facility]; Protocol Last Admin: 07/02/18 17:22 Dose: 3 unit Losartan Potassium (Cozaar Tab*) 50 mg PO DAILY [facility] Last Admin: 07/02/18 09:36 Dose: 50 mg Methotrexate (Methotrexate Tab*) 10 mg PO WEEKLY@0900 [facility] Metoprolol Tartrate (Lopressor Tab*) 50 mg PO BID [facility] Last Admin: 07/02/18 20:16 Dose: Not Given Metoprolol Tartrate (Lopressor Iv*) 5 mg IV Q6H PRN PRN Reason: TACHYCARDIA Pantoprazole Sodium (Protonix Tab*) 40 mg PO DAILY [facility] Last Admin: 07/02/18 09:37 Dose: 40 mg Ropinirole HCl (Requip Tab*) 2 mg PO BEDTIME [facility] Last Admin: 07/02/18 20:16 Dose: 2 mg Objective Vital Signs: Temp Pulse Resp BP Pulse Ox 97.3 F 51 16 139/55 97 07/03/18 03:02 07/03/18 03:02 07/03/18 03:02 07/03/18 03:02 07/03/18 03:02 Oxygen Devices in Use Now: None Appearance: sitting in chair, apears in NAD, A+O x3 Ears/Nose/Mouth/Throat: NL Teeth, Lips, Gums, Mucous Membranes Moist Neck: NL Appearance and Movements; NL JVP Respiratory: Symmetrical Chest Expansion and Respiratory Effort, Clear to Auscultation Cardiovascular: No Edema, - - Normal S1,S2. Irregular rate, regular rhythm + systolic aortic valve murmur Extremities: No Edema Skin: No Rash or Ulcers Lines/Tubes/Other Access: Clean, Dry and Intact Peripheral IV Laboratory Results: 07/03/18 08:51 07/03/18 05:40 Total Bilirubin 1.80 mg/dL (0.2-1.0) H 06/29/18 10:24 AST 26 U/L (13-39) 06/29/18 10:24 ALT 16 U/L (7-52) 06/29/18 10:24 Alkaline Phosphatase 62 U/L (34-104) 06/29/18 10:24 B-Natriuretic Peptide 1003 pg/mL (<=100) H 06/29/18 10:24 Total Protein 6.8 g/dL (6.4-8.9) 06/29/18 10:24 Albumin 3.5 g/dL (3.2-5.2) 06/29/18 10:24 Globulin 3.3 g/dL (2-4) 06/29/18 10:24 Albumin/Globulin Ratio 1.1 (1-3) 06/29/18 10:24 TSH 1.12 mcIU/mL (0.34-5.60) 06/30/18 06:01 06/29/18 06/29/18 06/29/18 10:24 13:30 16:22 Troponin I 0.01 0.03 0.03 07/01/18 07/01/18 16:14 22:05 Troponin I 0.02 0.02 Diagnostic Imaging: Echo 06/29/2018 per report.; LVEF 40-45%, severe LA dilatation, severe TR, mild MR, mild to moderate CO. Please see echo report for full detail EKG Data: None today Telemetry was reviewed. Sinus michelle rate 40's with occasional PVC. Assessment/Plan #1 c/o dizziness; during hospital stay patient had periods of paroxysmal AFL HR 120's and periods of sinus bradycardia HR 40's consistent with a component of SSS. She is being related for UTI( E. Coli). Dysuria and urinary frequency has improved since antibiotic initiation. Patient has an allergy to IV Dye thus will need premedication. She is to have DC PPM 07/04/[address] Patel. Currently asymptomatic with HR in 40's no recurrent symptoms since presentation. #2 E.Coli UTI on IV Rocephin since 06/29/2018. states symptoms have improved. She follows urology due to frequent UTIs according to the patient.differ to hospitalist. #3 h/o CAD with prior CABG with mitral valve repair. Denies chest pain. Troponin negative. On Bblocker therapy unless otherwise contraindicated recommend ASA 81/day for secondary prevention and statin therapy. 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 Chads Vasc > 2 historically on Xarelto 20/day. CrCi 50.73. On Lovenox at this time for PPM preparation. Given CrCi is borderline she will need close outpatient f/u to evaluate CrCI and will likely need renal dose eventually. She has a component of SSS tenative plan is PPM 07/04. #5 Disposition, pending course. Will speak with Dr. Davis about device implant tomorrow given UTI although she has been on IV rocephin since 06/29/2018. No recurrent symptoms since she presented and was treated for UTI. Attending: Donaldo Davis Original Note: <KimberlyrhondaCherelle - Last Filed: 07/03/18 09:16> Subjective Date of Service: 07/03/18 - c/o dizziness with a component of SSS Interval History: Spoke to RN today no events last night. Patient remains in Sinus michelle HR 40's with occasional PVC. She has been on IV Rocephin since 06/29/2018 due to UTI ( E.Coli). She is sitting in chair eating breakfast and offers no complaints. She denies further episodes of dizziness. Denies chest pain, SOB. Adds that her dysuria and urinary frequency /itching has improved since antibiotic initiation. Adds that she has been coughing since she came in and has been bringing up brown sputum. Medications Active Medications: Acetaminophen (Tylenol Tab*) 650 mg PO Q6H PRN PRN Reason: DISCOMFORT Last Admin: 07/03/18 07:00 Dose: 650 mg Amiodarone HCl (Cordarone Tab*) 200 mg PO DAILY [facility] Last Admin: 07/02/18 09:37 Dose: 200 mg Cholecalciferol (Vitamin D Tab*) 5,000 units PO DAILY [facility] Last Admin: 07/02/18 09:36 Dose: 5,000 units Cyanocobalamin (Vitamin B12 Tab*) 1,000 mcg PO DAILY [facility] Last Admin: 07/02/18 09:36 Dose: 1,000 mcg Dextrose (D50w Syringe 50 Ml*) 12.5 gm IV PUSH .FOR FS < 60 - SS PRN PRN Reason: FS < 60 Enoxaparin Sodium (Lovenox(*)) 70 mg SUBCUT ONCE ONE Stop: 07/03/18 18:01 Folic Acid (Folvite Tab*) 1 mg PO QAM [facility] Last Admin: 07/02/18 09:37 Dose: 1 mg Furosemide (Lasix Iv*) 40 mg IV DAILY [facility] Last Admin: 07/02/18 09:37 Dose: 40 mg Hydralazine HCl (Apresoline Iv*) 5 mg IV SLOW PU Q6H PRN PRN Reason: SYSTOLIC BP GREATER THAN: Ceftriaxone Sodium 1 gm/ (Sodium Chloride) 50 mls @ 200 mls/hr IVPB Q24H [facility] Last Admin: 07/02/18 17:23 Dose: 200 mls/hr Sodium Chloride (Ns 0.9% 1000 Ml) 1,000 mls @ 100 mls/hr IV PER RATE [facility] Cefazolin Sodium 1 gm/ Sterile (Water) 10 mls @ 60 mls/hr IVPB ONCE ONE Stop: 07/04/18 08:08 Insulin Human Lispro (Humalog*) 0 units SUBCUT AC [facility]; Protocol Last Admin: 07/02/18 17:22 Dose: 3 unit Losartan Potassium (Cozaar Tab*) 50 mg PO DAILY [facility] Last Admin: 07/02/18 09:36 Dose: 50 mg Methotrexate (Methotrexate Tab*) 10 mg PO WEEKLY@0900 [facility] Metoprolol Tartrate (Lopressor Tab*) 50 mg PO BID [facility] Last Admin: 07/02/18 20:16 Dose: Not Given Metoprolol Tartrate (Lopressor Iv*) 5 mg IV Q6H PRN PRN Reason: TACHYCARDIA Pantoprazole Sodium (Protonix Tab*) 40 mg PO DAILY [facility] Last Admin: 07/02/18 09:37 Dose: 40 mg Ropinirole HCl (Requip Tab*) 2 mg PO BEDTIME [facility] Last Admin: 07/02/18 20:16 Dose: 2 mg Objective Vital Signs: Temp Pulse Resp BP Pulse Ox 97.3 F 51 16 139/55 97 07/03/18 03:02 07/03/18 03:02 07/03/18 03:02 07/03/18 03:02 07/03/18 03:02 Oxygen Devices in Use Now: None Appearance: sitting in chair, apears in NAD, A+O x3 Ears/Nose/Mouth/Throat: NL Teeth, Lips, Gums, Mucous Membranes Moist Neck: NL Appearance and Movements; NL JVP Respiratory: Symmetrical Chest Expansion and Respiratory Effort, Clear to Auscultation Cardiovascular: No Edema, - - Normal S1,S2. Irregular rate, regular rhythm + systolic aortic valve murmur Extremities: No Edema Skin: No Rash or Ulcers Lines/Tubes/Other Access: Clean, Dry and Intact Peripheral IV Laboratory Results: 07/02/18 06:07 07/03/18 05:40 Total Bilirubin 1.80 mg/dL (0.2-1.0) H 06/29/18 10:24 AST 26 U/L (13-39) 06/29/18 10:24 ALT 16 U/L (7-52) 06/29/18 10:24 Alkaline Phosphatase 62 U/L (34-104) 06/29/18 10:24 B-Natriuretic Peptide 1003 pg/mL (<=100) H 06/29/18 10:24 Total Protein 6.8 g/dL (6.4-8.9) 06/29/18 10:24 Albumin 3.5 g/dL (3.2-5.2) 06/29/18 10:24 Globulin 3.3 g/dL (2-4) 06/29/18 10:24 Albumin/Globulin Ratio 1.1 (1-3) 06/29/18 10:24 TSH 1.12 mcIU/mL (0.34-5.60) 06/30/18 06:01 06/29/18 06/29/18 06/29/18 10:24 13:30 16:22 Troponin I 0.01 0.03 0.03 07/01/18 07/01/18 16:14 22:05 Troponin I 0.02 0.02 Laboratory Results - last 24 hr 07/02/18 07/02/18 07/03/18 11:40 16:19 05:40 Sodium 131 L Potassium 3.5 Chloride 95 L Carbon Dioxide 29 Anion Gap 7 BUN 31 H Creatinine 1.04 H Est GFR ( Amer) 61.5 Est GFR (Non-Af Amer) 50.9 BUN/Creatinine Ratio 29.8 H Glucose 117 H POC Glucose (mg/dL) 125 H 175 H Calcium 9.3 07/03/18 08:06 Sodium Potassium Chloride Carbon Dioxide Anion Gap BUN Creatinine Est GFR ( Amer) Est GFR (Non-Af Amer) BUN/Creatinine Ratio Glucose POC Glucose (mg/dL) 125 H Calcium Diagnostic Imaging: Echo 06/29/2018 per report.; LVEF 40-45%, severe LA dilatation, severe TR, mild MR, mild to moderate CO. Please see echo report for full detail EKG Data: None today Telemetry was reviewed. Sinus michelle rate 40's with occasional PVC. Assessment/Plan #1 c/o dizziness; during hospital stay patient had periods of paroxysmal AFL HR 120's and periods of sinus bradycardia HR 40's consistant with a component of SSS. She is being related for UTI( E. Coli). Dysuria and urinary frequency has improved since antibiotic initiation. Patient has an allergy to IV Dye thus will need premedication. She is to have DC PPM 07/04/[address] Patel. Currently asymptomatic with HR in 40's no recurrent symptoms since presentation. #2 E.Coli UTI on IV Rocephin since 06/29/2018. states symptoms have improved. She follows urology due to frequent UTIs according to the patient.differ to hospitalist. #3 h/o CAD with prior CABG with mitral valve repair. Denies chest pain. Troponin negative. On Bblocker therapy unless otherwise contraindicated recommend ASA 81/day for secondary prevention and statin therapy. 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 Chads Vasc > 2 historically on Xarelto 20/day. CrCi 50.73. On Lovenox at this time for PPM preparation. Given CrCi is borderline she will need close outpatient f/u to evaluate CrCI and will likely need renal dose eventually. She has a component of SSS tenative plan is PPM 07/04. #4 c/o cough with brown sputum production. CXR 06/29/2018 per report small pleural effusion versus pleural thickening. She is on methotrexate. states she is still coughing with brown sputum production. CBC to be updated. differ to hospitalist. BNP was 1000 #5 Disposition, pending course. Will speak with Dr. Davis about device implant tomorrow given ongoing sputum production with c/o cough and UTI although she has been on IV rocephin since 06/29/2018. No recurrent symptoms since she presented and was treated for UTI. Attending: Donaldo Davis <Donaldo Davis - Last Filed: 07/09/18 22:01> Objective Vital Signs: Temp Pulse Resp BP Pulse Ox 97.6 F 58 18 150/53 98 07/05/18 07:36 07/05/18 07:36 07/05/18 07:44 07/05/18 07:36 07/05/18 07:36 Laboratory Results: 07/05/18 05:55 07/05/18 05:55 Total Bilirubin 1.80 mg/dL (0.2-1.0) H 06/29/18 10:24 AST 26 U/L (13-39) 06/29/18 10:24 ALT 16 U/L (7-52) 06/29/18 10:24 Alkaline Phosphatase 62 U/L (34-104) 06/29/18 10:24 B-Natriuretic Peptide 1003 pg/mL (<=100) H 06/29/18 10:24 Total Protein 6.8 g/dL (6.4-8.9) 06/29/18 10:24 Albumin 3.5 g/dL (3.2-5.2) 06/29/18 10:24 Globulin 3.3 g/dL (2-4) 06/29/18 10:24 Albumin/Globulin Ratio 1.1 (1-3) 06/29/18 10:24 TSH 1.12 mcIU/mL (0.34-5.60) 06/30/18 06:01 06/29/18 06/29/18 06/29/18 10:24 13:30 16:22 Troponin I 0.01 0.03 0.03 07/01/18 07/01/18 16:14 22:05 Troponin I 0.02 0.02 Assessment/Plan Patient seen and examined Pt with SSS For pacer in am with Dr Patel Risk and benefits detailed. Time spent with pt 20 min Donaldo Davis MD
[2018-07-03] MEDS ORDERED: Potassium Chlor TAB* 10 MEQ TAB.ER PO ONE (08:42)
[2018-07-03 09:05] LABS: ABS Eosinophils 0.1 10^3/ul (0-0.6); ABS Monocytes 0.5 10^3/ul (0-0.8); ABS Neutrophils 4.6 10^3/ul (1.5-7.7); Hematocrit 32 % (35-47); Hemoglobin 10.4 g/dL (12.0-16.0); Lymphocyte % 27.5 %; Mean Corpuscular HGB Conc 32 g/dL (31-36); Mean Corpuscular Hemoglobin 30 pg (27-31); Mean Corpuscular Volume 92 fL (80-97); Mean Platelet Volume 8.7 fL (7.4-10.4); Nucleated Red Blood Cells % 0.1; Platelet Count 236 10^3/uL (150-450); Red Blood Count 3.51 10^6 /uL (3.70-4.87); Red Cell Distribution Width 17 % (10.5-15); White Blood Count 7.1 10^3/uL (3.5-10.8)
[2018-07-03] MEDS: Insulin LISPRO* 1 UNITS UNIT SUBCUT SCH ×3 (09:23→18:04)
[2018-07-03] MEDS: Amiodarone TAB* 200 MG PO SCH (09:37)
[2018-07-03] MEDS: Cholecalciferol TAB* 1000 UNITS PO SCH (09:37)
[2018-07-03] MEDS: Cyanocobalamin TAB* 500 MCG PO SCH (09:38)
[2018-07-03] MEDS: Folic Acid TAB* 1 MG PO SCH (09:38)
[2018-07-03] MEDS: Pantoprazole TAB * 40 MG TAB PO SCH (09:38)
[2018-07-03] MEDS: Losartan TAB* 25 MG PO SCH (09:38)
[2018-07-03] MEDS: Metoprolol Tartrate TAB* 50 mg PO SCH ×2 (09:40→20:12)
[2018-07-03] MEDS ORDERED: Enoxaparin(*) 80 MG/0.8 ML SYR SUBCUT ONE (18:00)
[2018-07-03] MEDS: cefTRIAXone(*) 1 GM in NS 0.9% 50 ML* 50 ML IVPB SCH (18:32)
[2018-07-03] MEDS: rOPINIRole TAB* 1 MG PO SCH (20:11)
--- NOTE | 2018-07-03 21:38 | PN ---
Subjective Date of Service: 07/03/18 Interval History: No events overnight. Pt reports resolution of SOB and has been walking the floors. Denies dizziness, CP, dysuria. Objective Active Medications: Acetaminophen (Tylenol Tab*) 650 mg PO Q6H PRN PRN Reason: DISCOMFORT Last Admin: 07/03/18 20:17 Dose: 650 mg Amiodarone HCl (Cordarone Tab*) 200 mg PO DAILY [facility] Last Admin: 07/03/18 09:37 Dose: 200 mg Cholecalciferol (Vitamin D Tab*) 5,000 units PO DAILY [facility] Last Admin: 07/03/18 09:37 Dose: 5,000 units Cyanocobalamin (Vitamin B12 Tab*) 1,000 mcg PO DAILY [facility] Last Admin: 07/03/18 09:38 Dose: 1,000 mcg Dextrose (D50w Syringe 50 Ml*) 12.5 gm IV PUSH .FOR FS < 60 - SS PRN PRN Reason: FS < 60 Folic Acid (Folvite Tab*) 1 mg PO QAM [facility] Last Admin: 07/03/18 09:38 Dose: 1 mg Sodium Chloride (Ns 0.9% 1000 Ml) 1,000 mls @ 100 mls/hr IV PER RATE [facility] Cefazolin Sodium 1 gm/ Sterile (Water) 10 mls @ 60 mls/hr IVPB ONCE ONE Stop: 07/04/18 08:08 Potassium Chloride (Potassium Chloride 20 Meq/100 Ml [facility]*) 20 meq in 100 mls @ 50 mls/hr IV ONCE ONE Stop: 07/03/18 23:43 Insulin Human Lispro (Humalog*) 0 units SUBCUT [facility]; Protocol Last Admin: 07/03/18 18:04 Dose: Not Given Losartan Potassium (Cozaar Tab*) 50 mg PO DAILY [facility] Last Admin: 07/03/18 09:38 Dose: 50 mg Methotrexate (Methotrexate Tab*) 10 mg PO WEEKLY@0900 [facility] Metoprolol Tartrate (Lopressor Tab*) 50 mg PO BID [facility] Last Admin: 07/03/18 20:12 Dose: Not Given Metoprolol Tartrate (Lopressor Iv*) 5 mg IV Q6H PRN PRN Reason: TACHYCARDIA Pantoprazole Sodium (Protonix Tab*) 40 mg PO DAILY [facility] Last Admin: 07/03/18 09:38 Dose: 40 mg Ropinirole HCl (Requip Tab*) 2 mg PO BEDTIME [facility] Last Admin: 07/03/18 20:11 Dose: 2 mg Vital Signs - 8 hr 07/03/18 07/03/18 07/03/18 14:52 17:54 19:22 Temperature 97.5 F 98.1 F Pulse Rate 44 48 47 Respiratory 16 18 Rate Blood Pressure 123/47 129/48 (mmHg) O2 Sat by Pulse 99 100 Oximetry Oxygen Devices in Use Now: None Appearance: appears stated age, NAD, alert and interactive Eyes: No Scleral Icterus Ears/Nose/Mouth/Throat: Clear Oropharnyx, Mucous Membranes Moist Neck: NL Appearance and Movements; NL JVP Respiratory: Clear to Auscultation Cardiovascular: NL Sounds; No Murmurs; No JVD, RRR Abdominal: NL Sounds; No Tenderness; No Distention, No Hepatosplenomegaly Extremities: - - 1+ pitting edema over LE to upper shins, L>R pt reports at baseline Result Diagrams: 07/03/18 08:51 07/03/18 05:40 Microbiology and Other Data: Microbiology 06/29/18 11:36 Urine Culture - Preliminary Urine Escherichia Coli Assess/Plan/Problems-Billing Assessment: 83W with h/o chronic a. 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 Pending PPM on 07/04. - Patient Problems (1) Atrial flutter Comment: tachycardic and dizzy on admission; h/o svt and a flutter; now with tachy-michelle -metoprolol amiodarone - appreciate Dr. Davis's consult. for pacer on Mon with Dr. Patel. Xarelto held (2) Acute exacerbation of CHF (congestive heart failure) Comment: Reduced EF. Now off IV lasix. Not on diuretics at home. BNP over 1000 on presentation and with SOB, LE edema, and CXR with small effusion. - noted that cardiology ordered fluids prior to procedure - will monitor patient closely - consider low dose PO furosemide after procedure (3) UTI (urinary tract infection) Comment: now s/p CTX for 5 days and will receive 1 dose of cefazolin tomorrow ( E. coli sensitive to this) to complete 6 day course of abx. (4) Hypertensive urgency Comment: bp in 200s on admission with pul edema - continue metoprolol and losartan (5) Type 2 diabetes mellitus Comment: diet controlled, cont ISS (6) Rheumatoid arthritis Comment: cont weekly MTX Status and Disposition: inpatient
[2018-07-03] MEDS ORDERED: KCL 20 MEQ/100 ML IVPREMIX* 20 MEQ/100 ML BAG IV ONE (21:44)
[2018-07-03] MEDS ORDERED: NS 0.9% 1000 ML** 1,000 ML IV SCH (23:55)
[2018-07-04] MEDS ORDERED: predniSONE TAB* 20 MG PO ONE ×2 (06:00)
[2018-07-04 06:19] LABS: BUN/Creatinine Ratio 25.5 (8-20); Calcium 9.3 mg/dL (8.6-10.3); EGFR African American 57.7 (>60); EGFR Non-African American 47.7 (>60); Magnesium 1.1 mg/dL (1.9-2.7); Potassium 4.5 mmol/L (3.5-5.0)
[2018-07-04] MEDS ORDERED: CEFAZOLIN IVPB ONE ×2 (07:59)
[2018-07-04] MEDS ORDERED: ceFAZolin 1 GM/10 ML flush(*) SYRINGE for pocket flush (cardiology) FLUSH ONE (07:59)
--- NOTE | 2018-07-04 08:33 | PN ---
Subjective Date of Service: 07/04/18 - CC: Interval History: No new c/o. No problems sleeping. No CP/weakness or SOB. Medications Active Medications: Acetaminophen (Tylenol Tab*) 650 mg PO Q6H PRN PRN Reason: DISCOMFORT Last Admin: 07/03/18 20:17 Dose: 650 mg Amiodarone HCl (Cordarone Tab*) 200 mg PO DAILY [facility] Last Admin: 07/03/18 09:37 Dose: 200 mg Cholecalciferol (Vitamin D Tab*) 5,000 units PO DAILY [facility] Last Admin: 07/03/18 09:37 Dose: 5,000 units Cyanocobalamin (Vitamin B12 Tab*) 1,000 mcg PO DAILY [facility] Last Admin: 07/03/18 09:38 Dose: 1,000 mcg Dextrose (D50w Syringe 50 Ml*) 12.5 gm IV PUSH .FOR FS < 60 - SS PRN PRN Reason: FS < 60 Folic Acid (Folvite Tab*) 1 mg PO QAM [facility] Last Admin: 07/03/18 09:38 Dose: 1 mg Sodium Chloride (Ns 0.9% 1000 Ml) 1,000 mls @ 100 mls/hr IV PER RATE [facility] Last Admin: 07/04/18 00:16 Dose: 100 mls/hr Insulin Human Lispro (Humalog*) 0 units SUBCUT [facility]; Protocol Last Admin: 07/03/18 18:04 Dose: Not Given Losartan Potassium (Cozaar Tab*) 50 mg PO DAILY [facility] Last Admin: 07/03/18 09:38 Dose: 50 mg Methotrexate (Methotrexate Tab*) 10 mg PO WEEKLY@0900 [facility] Metoprolol Tartrate (Lopressor Tab*) 50 mg PO BID [facility] Last Admin: 07/03/18 20:12 Dose: Not Given Metoprolol Tartrate (Lopressor Iv*) 5 mg IV Q6H PRN PRN Reason: TACHYCARDIA Pantoprazole Sodium (Protonix Tab*) 40 mg PO DAILY [facility] Last Admin: 07/03/18 09:38 Dose: 40 mg Ropinirole HCl (Requip Tab*) 2 mg PO BEDTIME [facility] Last Admin: 07/03/18 20:11 Dose: 2 mg Objective Vital Signs: Temp Pulse Resp BP Pulse Ox 97.3 F 106 18 160/94 97 07/04/18 03:23 07/04/18 03:23 07/04/18 03:23 07/04/18 03:23 07/04/18 03:23 Oxygen Devices in Use Now: None Appearance: Elderly female, sitting on edge of the bed, appears comfortable. Eyes: No Scleral Icterus, PERRLA Ears/Nose/Mouth/Throat: NL Teeth, Lips, Gums, Mucous Membranes Moist Neck: NL Appearance and Movements; NL JVP Respiratory: Symmetrical Chest Expansion and Respiratory Effort, Clear to Auscultation - dry cough occasionally. Cardiovascular: No Edema, - - Normal S1,S2. Regular, + systolic murmur RUSB Abdominal: NL Sounds; No Tenderness; No Distention Extremities: No Edema Skin: No Rash or Ulcers - scars on knees old, healed. Neurological: Alert and Oriented x 3, NL Muscle Strength and Tone - on exam in bed. Lines/Tubes/Other Access: Clean, Dry and Intact Peripheral IV Laboratory Results: 07/03/18 08:51 07/04/18 05:18 Total Bilirubin 1.80 mg/dL (0.2-1.0) H 06/29/18 10:24 AST 26 U/L (13-39) 06/29/18 10:24 ALT 16 U/L (7-52) 06/29/18 10:24 Alkaline Phosphatase 62 U/L (34-104) 06/29/18 10:24 B-Natriuretic Peptide 1003 pg/mL (<=100) H 06/29/18 10:24 Total Protein 6.8 g/dL (6.4-8.9) 06/29/18 10:24 Albumin 3.5 g/dL (3.2-5.2) 06/29/18 10:24 Globulin 3.3 g/dL (2-4) 06/29/18 10:24 Albumin/Globulin Ratio 1.1 (1-3) 06/29/18 10:24 TSH 1.12 mcIU/mL (0.34-5.60) 06/30/18 06:01 06/29/18 06/29/18 06/29/18 10:24 13:30 16:22 Troponin I 0.01 0.03 0.03 07/01/18 07/01/18 16:14 22:05 Troponin I 0.02 0.02 Diagnostic Imaging: Echo 06/29/2018 per report.; LVEF 40-45%, severe LA dilatation, severe TR, mild MR, mild to moderate TN. Please see echo report for full detail EKG Data: Telemetry overnight: NSR, mild sinus bradycardia, BBB, occasional PVC's, bigeminy. No recurrent SVT. Assessment/Plan 83 yo female with a hx CAD w/CABG, MV repair, PAF+ flutter, LBBB, PVD (carotids ) RA admitted with dizziness. Found to have a UTI and found to have tachybrady. #1 Tachybrady: dual chamber pacer implant today. Anticoagulation has been on hold. Indications, risks, benefits and details of the procedure were discussed with the patient. #2 E.Coli UTI on IV Rocephin since 06/29/2018. She follows urology due to frequent UTIs according to the patient. Asymptomatic per patient. #3 h/o CAD with prior CABG with mitral valve repair. Denies chest pain. On Bblocker therapy unless otherwise contraindicated recommend ASA 81/day for secondary prevention and statin therapy. Can resume/titrate post pacemaker. 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 Chads Vasc > 2 historically on Xarelto 20/day and on amiodarone. Resume anticoagulation post pacemaker. #4: HTN: elevated this AM, will titrate meds post pacemaker. #5: Dye allergy: prednisone given this AM, will plan on IV benadryl pre pacemaker.
[2018-07-04] MEDS: Insulin LISPRO* 1 UNITS UNIT SUBCUT SCH ×3 (08:40→17:34)
[2018-07-04] MEDS ORDERED: Methotrexate TAB* 2.5 MG PO SCH (09:00)
[2018-07-04] MEDS ORDERED: Gentamicin ADULT (*) 120 MG in NS 0.9% 100 ML* 100 ML IVPB ONE (09:00)
[2018-07-04] MEDS: Metoprolol Tartrate TAB* 50 mg PO SCH ×2 (09:02→19:50)
[2018-07-04] MEDS: Amiodarone TAB* 200 MG PO SCH (09:02)
[2018-07-04] MEDS ORDERED: NS 0.9% 500 ML* 500 ML IV ONE (09:02)
[2018-07-04] MEDS ORDERED: ceFAZolin VIAL(*) 2 GM in NS 0.9% 100 ML* 100 ML IVPB ONE (09:29)
[2018-07-04] MEDS ORDERED: Magnesium Sulfate 2 GM IV* 2 GM/50 ML BAG IVPB ONE (09:52)
--- NOTE | 2018-07-04 09:56 | PN ---
Subjective Date of Service: 07/04/18 Interval History: Going for dual chamber pacer implant today - pre-medicated for dye during procedure. Noted Mg of 1.1 - repletion ordered. Will restart therapeutic AC after PPM when cleared by cardiology. Furosemide IV discontinued - will monitor volume status and consider starting low-dose oral furosemide. Completed abx course for UTI. No symptoms. PT discharged patient but recommended to continue to encourage to walk. Objective Active Medications: Acetaminophen (Tylenol Tab*) 650 mg PO Q6H PRN PRN Reason: DISCOMFORT Last Admin: 07/03/18 20:17 Dose: 650 mg Amiodarone HCl (Cordarone Tab*) 200 mg PO DAILY [facility] Last Admin: 07/04/18 09:02 Dose: 200 mg Amlodipine Besylate (Norvasc Tab*) 5 mg PO DAILY [facility] Cholecalciferol (Vitamin D Tab*) 5,000 units PO DAILY [facility] Last Admin: 07/04/18 14:16 Dose: 5,000 units Cyanocobalamin (Vitamin B12 Tab*) 1,000 mcg PO DAILY [facility] Last Admin: 07/04/18 14:17 Dose: 1,000 mcg Dextrose (D50w Syringe 50 Ml*) 12.5 gm IV PUSH .FOR FS < 60 - SS PRN PRN Reason: FS < 60 Folic Acid (Folvite Tab*) 1 mg PO QAM [facility] Last Admin: 07/04/18 14:18 Dose: 1 mg Cefazolin Sodium 1 gm/ Sodium (Chloride) 50 mls @ 200 mls/hr IVPB Q8H [facility] Stop: 07/05/18 08:14 Insulin Human Lispro (Humalog*) 0 units SUBCUT AC [facility]; Protocol Last Admin: 07/04/18 14:33 Dose: Not Given Losartan Potassium (Cozaar Tab*) 50 mg PO DAILY [facility] Last Admin: 07/04/18 14:18 Dose: 50 mg Methotrexate (Methotrexate Tab*) 10 mg PO WEEKLY@0900 [facility] Last Admin: 07/04/18 14:18 Dose: 10 mg Metoprolol Tartrate (Lopressor Tab*) 50 mg PO BID [facility] Last Admin: 07/04/18 09:02 Dose: 50 mg Metoprolol Tartrate (Lopressor Iv*) 5 mg IV Q6H PRN PRN Reason: TACHYCARDIA Pantoprazole Sodium (Protonix Tab*) 40 mg PO DAILY [facility] Last Admin: 07/04/18 14:18 Dose: 40 mg Ropinirole HCl (Requip Tab*) 2 mg PO DAILY [facility] Last Admin: 07/04/18 16:14 Dose: 2 mg Vital Signs - 8 hr 07/04/18 07/04/18 03:23 08:05 Temperature 97.3 F 97.9 F Pulse Rate 106 51 Respiratory 18 20 Rate Blood Pressure 160/94 180/68 (mmHg) O2 Sat by Pulse 97 99 Oximetry Oxygen Devices in Use Now: None Appearance: well appearing, pleasant and making jokes Ears/Nose/Mouth/Throat: Clear Oropharnyx, Mucous Membranes Moist Neck: NL Appearance and Movements; NL JVP Respiratory: Clear to Auscultation Cardiovascular: RRR, - - soft systolic murmur Extremities: - - 1+ left LE edema Skin: No Rash or Ulcers Neurological: Alert and Oriented x 3 Result Diagrams: 07/03/18 08:51 07/04/18 05:18 Microbiology and Other Data: Microbiology 06/29/18 11:36 Urine Culture - Preliminary Urine Escherichia Coli Assess/Plan/Problems-Billing Assessment: 83W with chronic a. flutter, HFrEF 40-45%, HTN, RA, presents with HF exacerbation, tachy-michelle syndrome, and UTI. Getting PPM today. - Patient Problems (1) Atrial flutter Comment: tachycardic and dizzy on admission; h/o svt and a flutter; now with tachy-michelle -metoprolol amiodarone - appreciate Dr. Davis's consult; will have PPM today with Dr. Patel. Xarelto held - restart when able - pending cardiology recs (2) Hypertensive urgency Comment: bp in 200s on admission with pul edema - continue metoprolol and losartan - will start amlodipine today (3) Acute exacerbation of CHF (congestive heart failure) Comment: Reduced EF. Now off IV lasix. Not on diuretics at home. BNP over 1000 on presentation and with SOB, LE edema, and CXR with small effusion. - noted that cardiology ordered fluids on day of procedure - will monitor patient closely - consider low dose PO furosemide after procedure (4) UTI (urinary tract infection) Comment: now s/p CTX for 5 days and post-procedural cefazolin (E. coli sensitive to this) (5) Type 2 diabetes mellitus Comment: diet controlled, cont ISS (6) Rheumatoid arthritis Comment: cont weekly MTX Status and Disposition: inpatient
[2018-07-04] MEDS ORDERED: ceFAZolin 2 GM PREMIX in ORs 2 GM/50 ML BAG IVPB ONE (10:00)
[2018-07-04] MEDS ORDERED: Lidocaine 1% INJ* 10 MG/ML 30 ML SDV ONE (10:19)
[2018-07-04] MEDS ORDERED: Midazolam* 1 MG/ML 5 ML VIAL (5 MG) ONE (10:20)
[2018-07-04] MEDS ORDERED: Iohexol 180 (CONTRAST) 10 ML SDV IV ONE (10:20)
[2018-07-04] MEDS ORDERED: fentaNYL* 50 MCG/ML 2 ML VIAL (100 MCG VIAL) ONE (10:20)
[2018-07-04] MEDS ORDERED: diPHENhydraMINE IV* 50 MG/ML 1 ml VIAL (BENADRYL) ONE (10:35)
[2018-07-04] MEDS: Cholecalciferol TAB* 1000 UNITS PO SCH (14:16)
[2018-07-04] MEDS: Cyanocobalamin TAB* 500 MCG PO SCH (14:17)
[2018-07-04] MEDS: Pantoprazole TAB * 40 MG TAB PO SCH (14:18)
[2018-07-04] MEDS: Folic Acid TAB* 1 MG PO SCH (14:18)
[2018-07-04] MEDS: Losartan TAB* 25 MG PO SCH (14:18)
[2018-07-04] MEDS: rOPINIRole TAB* 1 MG PO SCH (16:14)
[2018-07-04] MEDS: amLODIPine TAB* 5 MG PO SCH (17:35)
[2018-07-04] MEDS: ceFAZolin VIAL(*) 1 GM in NS 0.9% 50 ML* 50 ML IVPB SCH (17:36)
[2018-07-04] MEDS: Acetaminophen TAB* 325 MG PO PRN (20:18)
--- NOTE | 2018-07-04 21:23 | OP ---
DICTATION ENDS ABRUPTLY CC: Dr. Donaldo Davis; Dr. Montano DATE OF OPERATION: 07/04/18 - ROOM #443 DATE OF : 39 SURGEON: Zahra Patel MD. DICTATION ENDS ABRUPTLY Will redictate. [id number]/[facility] #: [id number] MTDD
[2018-07-05] MEDS: ceFAZolin VIAL(*) 1 GM in NS 0.9% 50 ML* 50 ML IVPB SCH ×2 (00:33→11:07)
[2018-07-05 06:30] LABS: Hematocrit 31 % (35-47); Hemoglobin 9.8 g/dL (12.0-16.0); Mean Corpuscular HGB Conc 32 g/dL (31-36); Mean Corpuscular Hemoglobin 29 pg (27-31); Mean Corpuscular Volume 91 fL (80-97); Mean Platelet Volume 8.8 fL (7.4-10.4); Platelet Count 206 10^3/uL (150-450); Red Blood Count 3.34 10^6 /uL (3.70-4.87); Red Cell Distribution Width 17 % (10.5-15)
[2018-07-05 06:50] LABS: BUN/Creatinine Ratio 23.7 (8-20); Calcium 9.3 mg/dL (8.6-10.3); EGFR Non-African American 57.9 (>60); Magnesium 1.4 mg/dL (1.9-2.7); Potassium 4.3 mmol/L (3.5-5.0)
[2018-07-05] MEDS: Insulin LISPRO* 1 UNITS UNIT SUBCUT SCH ×2 (07:40→13:42)
[2018-07-05 07:43] VITALS: BP 150/53
[2018-07-05] MEDS ORDERED: Rivaroxaban TAB(*) 20 MG TAB PO SCH (10:00)
[2018-07-05] MEDS: amLODIPine TAB* 5 MG PO SCH (11:08)
[2018-07-05] MEDS: Cholecalciferol TAB* 1000 UNITS PO SCH (11:08)
[2018-07-05] MEDS: Losartan TAB* 25 MG PO SCH (11:08)
[2018-07-05] MEDS: rOPINIRole TAB* 1 MG PO SCH (11:08)
[2018-07-05] MEDS: Folic Acid TAB* 1 MG PO SCH (11:08)
[2018-07-05] MEDS: Metoprolol Tartrate TAB* 50 mg PO SCH (11:09)
[2018-07-05] MEDS: Cyanocobalamin TAB* 500 MCG PO SCH (11:09)
[2018-07-05] MEDS: Amiodarone TAB* 200 MG PO SCH (11:09)
[2018-07-05] MEDS: Pantoprazole TAB * 40 MG TAB PO SCH (11:10)
--- NOTE | 2018-07-05 11:15 | PN ---
<Cherelle Miller - Last Filed: 07/05/18 11:34> Subjective Date of Service: 07/05/18 - SSS s/p DC PPM 07/04/2018 Interval History: No events last night, patient sitting in chair and offers no complaints. She has some discomfort at left anterior device site. No c/o sob, dizziness, sensation of heart racing. Medications Active Medications: Acetaminophen (Tylenol Tab*) 650 mg PO Q6H PRN PRN Reason: DISCOMFORT Last Admin: 07/04/18 20:18 Dose: 650 mg Amiodarone HCl (Cordarone Tab*) 200 mg PO DAILY [facility] Last Admin: 07/04/18 09:02 Dose: 200 mg Amlodipine Besylate (Norvasc Tab*) 5 mg PO DAILY [facility] Last Admin: 07/04/18 17:35 Dose: 5 mg Cholecalciferol (Vitamin D Tab*) 5,000 units PO DAILY [facility] Last Admin: 07/04/18 14:16 Dose: 5,000 units Cyanocobalamin (Vitamin B12 Tab*) 1,000 mcg PO DAILY [facility] Last Admin: 07/04/18 14:17 Dose: 1,000 mcg Dextrose (D50w Syringe 50 Ml*) 12.5 gm IV PUSH .FOR FS < 60 - SS PRN PRN Reason: FS < 60 Folic Acid (Folvite Tab*) 1 mg PO QAM [facility] Last Admin: 07/04/18 14:18 Dose: 1 mg Insulin Human Lispro (Humalog*) 0 units SUBCUT AC [facility]; Protocol Last Admin: 07/05/18 07:40 Dose: Not Given Losartan Potassium (Cozaar Tab*) 50 mg PO DAILY [facility] Last Admin: 07/04/18 14:18 Dose: 50 mg Methotrexate (Methotrexate Tab*) 10 mg PO WEEKLY@0900 [facility] Last Admin: 07/04/18 14:18 Dose: 10 mg Metoprolol Tartrate (Lopressor Tab*) 50 mg PO BID [facility] Last Admin: 07/04/18 19:50 Dose: Not Given Metoprolol Tartrate (Lopressor Iv*) 5 mg IV Q6H PRN PRN Reason: TACHYCARDIA Pantoprazole Sodium (Protonix Tab*) 40 mg PO DAILY [facility] Last Admin: 07/04/18 14:18 Dose: 40 mg Rivaroxaban (Xarelto(*)) 20 mg PO DAILY [facility] Ropinirole HCl (Requip Tab*) 2 mg PO DAILY [facility] Last Admin: 07/04/18 16:14 Dose: 2 mg Objective Vital Signs: Temp Pulse Resp BP Pulse Ox 97.6 F 58 18 150/53 98 07/05/18 07:36 07/05/18 07:36 07/05/18 07:44 07/05/18 07:36 07/05/18 07:36 Oxygen Devices in Use Now: None Appearance: Elderly female, sitting on edge of the bed, appears comfortable. Eyes: No Scleral Icterus, PERRLA Ears/Nose/Mouth/Throat: NL Teeth, Lips, Gums, Mucous Membranes Moist Neck: NL Appearance and Movements; NL JVP Respiratory: Symmetrical Chest Expansion and Respiratory Effort, Clear to Auscultation - dry cough occasionally. Cardiovascular: No Edema, - - Normal S1,S2. Regular, + systolic murmur RUSB Abdominal: NL Sounds; No Tenderness; No Distention Extremities: No Edema Skin: No Rash or Ulcers - scars on knees old, healed., - - left anterior chest site inspected. no hematoma. non tender to palpation. scant dried blood noted on dressing. Neurological: Alert and Oriented x 3, NL Muscle Strength and Tone - on exam in bed. Lines/Tubes/Other Access: Clean, Dry and Intact Peripheral IV Laboratory Results: 07/05/18 05:55 07/05/18 05:55 Total Bilirubin 1.80 mg/dL (0.2-1.0) H 06/29/18 10:24 AST 26 U/L (13-39) 06/29/18 10:24 ALT 16 U/L (7-52) 06/29/18 10:24 Alkaline Phosphatase 62 U/L (34-104) 06/29/18 10:24 B-Natriuretic Peptide 1003 pg/mL (<=100) H 06/29/18 10:24 Total Protein 6.8 g/dL (6.4-8.9) 06/29/18 10:24 Albumin 3.5 g/dL (3.2-5.2) 06/29/18 10:24 Globulin 3.3 g/dL (2-4) 06/29/18 10:24 Albumin/Globulin Ratio 1.1 (1-3) 06/29/18 10:24 TSH 1.12 mcIU/mL (0.34-5.60) 06/30/18 06:01 06/29/18 06/29/18 06/29/18 10:24 13:30 16:22 Troponin I 0.01 0.03 0.03 07/01/18 07/01/18 16:14 22:05 Troponin I 0.02 0.02 Laboratory Results - last 24 hr 07/04/18 07/04/18 07/05/18 16:20 20:09 05:55 WBC 7.0 RBC 3.34 L Hgb 9.8 L Hct 31 L MCV 91 MCH 29 MCHC 32 RDW 17 H Plt Count 206 MPV 8.8 Sodium Potassium Chloride Carbon Dioxide Anion Gap BUN Creatinine Est GFR ( Amer) Est GFR (Non-Af Amer) BUN/Creatinine Ratio Glucose POC Glucose (mg/dL) 162 H 109 H Calcium Magnesium 07/05/18 07/05/18 05:55 07:33 WBC RBC Hgb Hct MCV MCH MCHC RDW Plt Count MPV Sodium 131 L Potassium 4.3 Chloride 98 L Carbon Dioxide 28 Anion Gap 5 BUN 22 Creatinine 0.93 Est GFR ( Amer) 70.0 Est GFR (Non-Af Amer) 57.9 BUN/Creatinine Ratio 23.7 H Glucose 102 H POC Glucose (mg/dL) 107 H Calcium 9.3 Magnesium 1.4 L Laboratory Results - last 24 hr 07/04/18 07/04/18 07/05/18 16:20 20:09 05:55 WBC 7.0 RBC 3.34 L Hgb 9.8 L Hct 31 L MCV 91 MCH 29 MCHC 32 RDW 17 H Plt Count 206 MPV 8.8 Sodium Potassium Chloride Carbon Dioxide Anion Gap BUN Creatinine Est GFR ( Amer) Est GFR (Non-Af Amer) BUN/Creatinine Ratio Glucose POC Glucose (mg/dL) 162 H 109 H Calcium Magnesium 07/05/18 07/05/18 05:55 07:33 WBC RBC Hgb Hct MCV MCH MCHC RDW Plt Count MPV Sodium 131 L Potassium 4.3 Chloride 98 L Carbon Dioxide 28 Anion Gap 5 BUN 22 Creatinine 0.93 Est GFR ( Amer) 70.0 Est GFR (Non-Af Amer) 57.9 BUN/Creatinine Ratio 23.7 H Glucose 102 H POC Glucose (mg/dL) 107 H Calcium 9.3 Magnesium 1.4 L Diagnostic Imaging: Echo 06/29/2018 per report.; LVEF 40-45%, severe LA dilatation, severe TR, mild MR, mild to moderate OH. Please see echo report for full detail CXR 07/05/2018; no pneumothrorax per report. EKG Data: Telemetry overnight: currently paced rate 60. occasional PVC Assessment/Plan 83 yo female with a hx CAD w/CABG, MV repair, PAF+ flutter, LBBB, PVD (carotids ) RA admitted with dizziness. Found to have a UTI and found to have tachybrady. #1 Tachybrady: s/p dual chamber pacer implant 07/04/2018. Anticoagulation restarted today. Device check reviewed. atrial lead pacing threshold 0.4ms, RV lead pacing threshold 0.4ms. normal device check. No pneumothorax on today's CXR. she will to follow up next week with Dr. Davis. F/u appt placed in discharge plan. She is to change dressing daily x3 days then leave open to air. she can shower in 48 hours but do not soak left anterior chest device site. No liftin gleft arm above shoulder x6 weeks. use immobilizer as directed x 6 weeks. Please send patient home on Keflex 250mg PO TID x 3days. #2 E.Coli UTI on IV Rocephin since 06/29/2018. She follows urology due to frequent UTIs according to the patient. Asymptomatic per patient. #3 h/o CAD with prior CABG with mitral valve repair. Denies chest pain. On Bblocker therapy unless otherwise contraindicated recommend ASA 81/day for secondary prevention and statin therapy. Can resume/titrate post pacemaker. 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 Chads Vasc > 2 historically on Xarelto 20/day and on amiodarone. CrCi borderline at 50 thus will transition to Eliquis 5mg Po BID starting the morning of 07/07/2018. #4: HTN: elevated this AM, will titrate meds post pacemaker. <Zahra Patel - Last Filed: 07/05/18 17:44> Objective Vital Signs: Temp Pulse Resp BP Pulse Ox 97.6 F 58 18 150/53 98 07/05/18 07:36 07/05/18 07:36 07/05/18 07:44 07/05/18 07:36 07/05/18 07:36 Laboratory Results: 07/05/18 05:55 07/05/18 05:55 Total Bilirubin 1.80 mg/dL (0.2-1.0) H 06/29/18 10:24 AST 26 U/L (13-39) 06/29/18 10:24 ALT 16 U/L (7-52) 06/29/18 10:24 Alkaline Phosphatase 62 U/L (34-104) 06/29/18 10:24 B-Natriuretic Peptide 1003 pg/mL (<=100) H 06/29/18 10:24 Total Protein 6.8 g/dL (6.4-8.9) 06/29/18 10:24 Albumin 3.5 g/dL (3.2-5.2) 06/29/18 10:24 Globulin 3.3 g/dL (2-4) 06/29/18 10:24 Albumin/Globulin Ratio 1.1 (1-3) 06/29/18 10:24 TSH 1.12 mcIU/mL (0.34-5.60) 06/30/18 06:01 06/29/18 06/29/18 06/29/18 10:24 13:30 16:22 Troponin I 0.01 0.03 0.03 07/01/18 07/01/18 16:14 22:05 Troponin I 0.02 0.02 Assessment/Plan The patient was seen and examined today by myself. She denies recurrence of weakness. CXR shows good lead placement. Pacer interrogation good thresholds. I agree with the above recommendations and plans.
[2018-07-05] MEDS ORDERED: Magnesium Sulfate IV* 3 GM in NS 0.9% 100 ML* 100 ML IVPB ONE (12:00)
[2018-07-05] MEDS ORDERED: Magnesium Oxide TAB* 400 MG PO ONE (13:51)
--- NOTE | 2018-07-06 00:59 | DS ---
CC: Kanu Bhardwaj MD; Cherelle Miller NP; Donaldo Davis MD; Zahra Patel MD * DISCHARGE SUMMARY: DATE OF ADMISSION: 06/29/18 DATE OF DISCHARGE: 07/05/18 PRIMARY CARE PHYSICIAN: Kanu Bhardwaj MD. PRIMARY DIAGNOSIS: Tachybrady syndrome. SECONDARY DIAGNOSES: 1. Coronary artery disease, status post bypass. 2. Mitral valve repair. 3. Atrial flutter. 4. Hypertension. 5. Rheumatoid arthritis. 6. Diabetes mellitus. 7. Cerebrovascular accident in 2013. CONSULTS: Cardiology - Cherelle Miller NP, Dr. Donaldo Davis, Dr. Zahra Patel. PROCEDURES: Dual-chamber pacer implant, 07/04/18. DISCHARGE MEDICATION LIST: 1. Apixaban 5 mg twice a day, to start in 2 days. 2. Amlodipine 5 mg daily. 3. Atorvastatin 40 mg daily. 4. Pantoprazole 40 mg daily. 5. Metoprolol tartrate 50 mg twice a day. 6. Amiodarone 200 mg daily. 7. Ambien 5 mg nightly as needed for sleep. 8. Ropinirole 2 mg nightly. 9. Vitamin B12 and D. 10. Folic acid. 11. Losartan 50 mg daily. 12. Methotrexate 10 mg weekly. 13. Prolia injections subcutaneously as per PCP. HISTORY OF PRESENT ILLNESS: Ms. Kahn is an 83-year-old woman with coronary artery disease; status post CABG, CHF with reduced ejection fraction, history of CVA, hypertension, diabetes type 2; not on insulin, history of SVT and atrial flutter; on amiodarone and Xarelto who presented to the emergency department due to dizziness and generalized weakness upon waking on the morning of presentation. She also reports associated leg swelling for the last 2 weeks and a cough for the last 3 months productive of clear sputum. The cough has been nonprogressive. This morning on awakening, she felt lightheaded with the room spinning. She was not experiencing shortness of breath, orthopnea, or dyspnea on exertion at that time. She also denied chest pain, nausea, vomiting, diarrhea, fever, chills, and abdominal pain. HOSPITAL COURSE: In the emergency department, she was found to have a positive Elroy- Hallpike maneuver. Her heart rate is normal, but after several hours became tachycardic eventually in the 130s, which responded to IV metoprolol. She was asymptomatic at that time. Conversation with the patient's daughter reveals that the patient has not been taking her home Xarelto for several weeks and may have also been not taking several other medications. She was admitted to the hospital for further evaluation and cardiology was consulted, and she was seen by her outpatient meal miller, Dr. Davis. She was also initiated on IV diuresis given some vascular congestion on chest x-ray and lower extremity edema. Dr. Davis noted EKG significant for breakthrough episodes of tachycardia , concern for sick sinus syndrome with paroxysmal atrial flutter and he recommended a dual-chamber pacemaker implantation, which she underwent with Dr. Patel on 07/04/18. She tolerated the procedure well. To prevent hematoma, it was advised that she restart anticoagulation with Eliquis 2 days after discharge. She was also given antibiotics postprocedurally. She was educated extensively on postimplantation precautions. During her hospitalization, she was noted to have an E. coli UTI, for which she received 5 days of ceftriaxone. The patient was also evaluated at this admission by Physical Therapy, who thought the patient would benefit from skilled physical therapy intervention, although the patient was quite reluctant to receive this intervention, although eventually she was amenable to visiting nurse service referral for evaluation of home physical therapy. By the day of discharge, she reported only some mild pain around the insertion site without fevers, chills, or discharge. She denied recurrence of dizziness and she also denies shortness of breath or lower extremity edema. She reports feeling back to her baseline and prefers to go home. A complete 10-point review of systems was performed with pertinent positives and negatives listed. PHYSICAL EXAMINATION: On discharge, the patient is afebrile, heart rate 60, blood pressure 150/53, respiratory rate 16, oxygen saturation 98% on room air. In general, she is a chronically ill-appearing elderly woman, in no acute distress, alert and conversant with frequent jokes. HEENT: Moist mucous membranes, OP clear. Neck: No JVD. Full range of motion normal without pain. Respiratory: Clear to auscultation bilaterally. Cardiovascular: Regular rate and rhythm. Soft systolic murmur loudest in RUSB. Abdomen: Soft, nontender, nondistended. Chest: With the device site clean, dry, and intact. Extremities: Without edema. Skin: No rash. DIAGNOSTIC STUDIES/LAB DATA: Pertinent Diagnostic Studies: Transthoracic echocardiogram on 06/29/18 with LV systolic function mildly reduced to 40% to 45 % with moderate intraventricular dyssynchrony, likely due to LBBB. RV pressure moderately to severely increased. Ventricular septum with flattening of the interventricular muscle consistent with RV volume or pressure overload with LA severely dilated and mild mitral regurgitation. TSH 1.12. Hemoglobin A1c 6.4. DISCHARGE PLAN: The patient is to follow up post implantation with Dr. Patel and she will continue followup with outpatient meal miller, Dr. Davis, as well as her PCP for her chronic medical issues. She was educated to resume anticoagulation 2 days after discharge and to continue a 3-day course of oral antibiotics to prevent infection at the procedure site. All other medications are listed as above. She was extensively educated with her youngest daughter on return precautions, which include but are not limited to recurrence of dizziness or new symptoms of chest pain, shortness of breath, or increased pain or drainage from incision site. She is to resume a healthy diet, low in processed foods as well as activity as tolerated. DISPOSITION: To home. CONDITION: Improved. TIME SPENT: Approximately 60 minutes were spent on discharge of this patient, more than half of which was spent with care coordination at bedside for interview and exam. [id number]/[facility] #: [id number] JONES
== END 2018-07-05 15:30 | disposition home or self-care (01) | DRG 242 ==
LOC: ED 09:49 → MEDTELE 17:59 → OBSVTOIN 06-30 08:12 → MEDTELE 06-30 12:51
PROVIDERS: ADMIT Student in an Organized Health Care Education/Training Program; ATTEND Internal Medicine
PROC: 0JH606Z Insertion of Pacemaker, Dual Chamber into Chest Subcutaneous Tissue and Fascia, Open Approach (ICD-10-PCS; principal; 2018-06-30)
PROC: 02H63JZ Insertion of Pacemaker Lead into Right Atrium, Percutaneous Approach (ICD-10-PCS; 2018-06-30)
PROC: 02HK3JZ Insertion of Pacemaker Lead into Right Ventricle, Percutaneous Approach (ICD-10-PCS; 2018-06-30)
DX: I49.5 Sick sinus syndrome (principal); I50.23 Acute on chronic systolic (congestive) heart failure; I48.92 Unspecified atrial flutter; N39.0 Urinary tract infection, site not specified; E11.9 Type 2 diabetes mellitus without complications; I25.10 Atherosclerotic heart disease of native coronary artery without angina pectoris; E78.00 Pure hypercholesterolemia, unspecified; I44.7 Left bundle-branch block, unspecified; K21.9 Gastro-esophageal reflux disease without esophagitis; K44.9 Diaphragmatic hernia without obstruction or gangrene; Z96.652 Presence of left artificial knee joint; Z96.1 Presence of intraocular lens; M19.011 Primary osteoarthritis, right shoulder; R29.700 NIHSS score 0; M06.9 Rheumatoid arthritis, unspecified; B96.20 Unspecified Escherichia coli [E. coli] as the cause of diseases classified elsewhere; I34.0 Nonrheumatic mitral (valve) insufficiency; G25.81 Restless legs syndrome; Z96.653 Presence of artificial knee joint, bilateral; E66.9 Obesity, unspecified; I11.0 Hypertensive heart disease with heart failure; I16.0 Hypertensive urgency; I48.0 Paroxysmal atrial fibrillation; Z98.42 Cataract extraction status, left eye; Z82.49 Family history of ischemic heart disease and other diseases of the circulatory system; Z95.1 Presence of aortocoronary bypass graft; Z88.5 Allergy status to narcotic agent; Z88.0 Allergy status to penicillin; Z88.8 Allergy status to other drugs, medicaments and biological substances; Z91.041 Radiographic dye allergy status; Z79.01 Long term (current) use of anticoagulants; Z86.73 Personal history of transient ischemic attack (TIA), and cerebral infarction without residual deficits; Z98.41 Cataract extraction status, right eye; Z90.49 Acquired absence of other specified parts of digestive tract
CPT/HCPCS: 33208; 36415; 70450; 71045; 71046; 80048; 80053; 81003; 81015; 83036; 83605; 83735; 83880; 84443; 84484; 85025; 85027; 87077; 87086; 87186; 93005; 93306; 99156; 99157; 99285; A9270-GY; C1785; C1892; C1898; G8978-GP-CI; G8978-GP-CJ; G8979-GP-CI; G8980-GP-CI; G8987-GO-CI; G8988-GO-CI; G8989-GO-CI; J0690; J0696; J1200; J1580; J1650; J1940; J2250; J3010; J3475; J3480; J3490; J7512; J8610

== ENCOUNTER → 2018-07-11 15:16 | Emergency (ER) | payer MEDICARE ==
--- OUTSIDE RECORDS SUMMARY | 2018-07-11 15:39 | XMS REPORT | Continuity of Care Document ---
:1935 External Reference #:[id number] Author Name Sherin Garza Care Team Providers Name Role Phone Donaldo Davis MD Care Team Information [employer] Operator Unavailable Erasto Bhardwaj MD Primary Care Physician Unavailable Payers Date Identification Numbers Payment Provider Subscriber Effective: 2004 Policy Number: [id number] Medicare Tu Hoskins PayID: [id number] [address] [place] [address] Effective: 2004 Policy Number: [facility] Tu Hoskins [id number] PayID: [id number] [address] [place] [address] Problems Active Problems Provider Date Polyneuropathy Jody [...] Sodium apply 2 grams on 100gm M25.511 Annsatnam Ledezmak, 2018 1% RT shoulder twice [employer]CIAL [employer] Gel daily Amiodarone HCL 1 tab a day 60tabs I48.3 Donaldo Davis, 03/28/2018 200mg M.D. Tablets Xarelto 1 by mouth every 90tabs I48.3 Donaldo Davis, 03/28/2018 20mg Tablets day M.D. Protonix 1/day BishopErasto, 04/17/2017 40mg Metoprolol Tartrate 1 by mouth twice BishopErasto, 03/09/2017 a day 50mg Tablets Ropinirole HCL 1 at hs BishopErasto, 02/24/2017 2mg Prolia 60 mg sc q6mon 60mg M81.0 Estuardo Christiansen, 02/24/2017 60mg/ml Solution [facility] Vitamin D3 Ultra 1 by mouth every 90caps Estuardo Christiansen, 11/29/2016 Strength day FINANCIAL AID 5000Unit Capsules Methotrexate 4 tabs by mouth 60tabs M05.79 Estuardo Christiansen, 08/12/2016 2.5mg every week (on FINANCIAL AID Tablets hold) Z79.899 Folic Acid 1 by mouth every 90tabs Z79.899 Estuardo Christiansen, [facility] AID 07/15/2016 1mg Tablets day in the morning Ambien 1 po qhs prn Unknown 5mg Losartan Potassium Take 1 Tablet By Unknown 50mg Mouth Every Day Tablets Vitamin B12 1 by mouth every Unknown 1000mcg day Tablets ER History Medications Warfarin Sodium 1 tablet mon,thur Unknown 06/27/2017 - 1mg and 1/2 tablet 03/26/2018 Tablets fri,sat,sun as directed [facility] Furosemide Take 1 Tablet By Joao Arshad MD 06/20/2017 - 40mg Mouth Daily 10/17/2017 Tablets Metformin HCL 1 tablet po daily Bishop, 05/10/2017 - 500mg MD Erasto 08/08/2017 Cipro 1 tab po twice 10tabs R30.0 Estuardo Christiansen, 02/24/2017 - 250mg Tablets daily for 5 days. [facility] 06/09/2017 May stop after 3 days if symptoms resolved. Pyridium 1 as needed every 6 1tabs R30.0 Andrewofia Kuldip, 02/24/2017 - 200mg hours [facility] 02/24/2017 Tablets Bactrim DS 1 tab po bid 6units R30.0 Estuardo Christiansen, 02/24/2017 - 800-160mg [facility] 02/24/2017 Macrodantin 1 po qid 10caps R30.0 Estuardo Christiansen, 02/24/2017 - 25mg [facility] 02/24/2017 Capsules Iron 1 by mouth every 90tabs Estuardo Christiansen, 11/29/2016 - 325(65Fe) mg day ( last taken [facility] 08/08/2017 Tablets 07/04/17) Vitamin D3 Ultra 1 by mouth every 90caps Estuardo Christiansen, 08/15/2016 - Strength day [facility] 11/17/2016 5000Unit Capsules Methotrexate 6 tbs by mouth 72tabs M05.79 Estuardo Christiansen, 07/15/2016 - 2.5mg every week [facility] 08/12/2016 Tablets Z79.899 Calcium 500 +D 1 by mouth twice 180tabs M81.0 Estuardo Christiansen, 07/15/2016 - a day [facility] 10/17/2017 [id number] Tablets Oxycodone HCL take 1 - 2 [...] Foreman iv infusion: 2 QS M05.79 Estuardo Ledezmak, 07/24/2015 - 50mg/4ML mg/kg repeat at [facility] 07/15/2016 Solution weeks 0 and 4 weeks [...] Negro, 04/29/2015 - 500mg Tablets capsule/tablet by M.DSailaja 05/05/2015 mouth twice daily as needed for pain, please stop other nsaids Ergocalciferol take 1 capsule by 14caps Marvin Negro, 04/27/2015 - 77906Irwh mouth once weekly M.DSailaja 01/06/2016 Capsules Tramadol HCL 1 by mouth four 50tabs Chseter Rainey M.D. 02/03/2014 - 50mg Tablets times [...] Unknown - 50mg 06/20/2017 Creon Unknown - 91830 04/16/2014 Aspirin Ec Lo-Dose Unknown - 81mg 07/04/2017 Medications Administered in Office Medication SIG Qnty Indications Ordering Provider Date Prolia Injection, DenosumabEstuardo FNP 03/26/2018 1MG Injection Prolia Injection, Denosumab, Nurse Visit 09/22/2017 1MG Injection Prolia Injection, DenosumabEstuadro FNP 02/24/2017 1MG Injection Depomedrol 40MG Adriel Rice MD 02/17/2016 Injection Prolia Injection, DenosumabMarvin M.D. 01/06/2016 1MG Injection Prolia Injection, Denosumab, Nurse Visit 06/24/2015 1MG Injection Immunizations CPT Code Status Date Vaccine Reaction Lot # [id number] Given 12/19/2017 Fluzone High Dose no immediate reaction [id number] Given 01/06/2016 Influ Virus Vaccine, [id number] Quadrivalent, Split Virus, [place] [address] Given 10/03/2014 Pneumococcal Conjugate Vaccine 13 Valent For Intramuscular Use 10299 Given Unknown Pneumonia Vaccine Vital Signs Date [...] Test Result H/L Range Note Order 04/16/2018 [facility] In-House Holter Monitor <pending> CBC Auto Diff 12/20/2017 [facility] White Blood 6.7 10^3/uL N 3.5-10.[address] [place] [address] [phone] Red Blood Count 3.86 10^6/uL Low 4.00-5.40 [...] Cells % 0.1 Comp Metabolic Panel 12/20/2017 [facility] Sodium 132 mmol/L Low 135-[address] [place] [address] [phone] Potassium 4.4 mmol/L N 3.5-5.0 Chloride 100 [...] Egfr 70.2 >60 1 Laboratory test 12/20/2017 [facility] C Reactive 20.74 mg/L High <8.[address] Protein [place], [place] [phone] Erythrocyte Sed Rate 38 mm/Hr N 0-40 CBC Auto Diff 07/01/2017 [facility] White Blood 8.4 10^3/uL N 3.5-10.[address] [place] [address] [phone] Red Blood Count 3.61 10^6/uL Low 4.0-5.4 [...] Cells % 0 Comp Metabolic Panel 07/01/2017 [facility] Sodium 134 mmol/L Low 139-[address] [place] [address] [phone] Potassium 3.9 mmol/L N 3.5-5.0 Chloride 97 [...] Egfr 78.5 >60 3 Laboratory test 07/01/2017 [facility] Erythrocyte Sed 45 mm/Hr High 0-40 finding [address] [place] [address] [phone] C Reactive Protein 64.47 mg/L High < 5.00 4 Iron & Iron Binding 07/01/2017 [facility] Iron 43 g/dL Low 50-[address] [place] [address] [phone] Unsaturated Iron Binding 243 g/dL Total Iron Binding Capacity 286 g/dL N 250-450 Transferrin 204 mg/dL N 203-362 % Iron Saturation 15 % N 15-55 Laboratory test 07/01/2017 [facility] Ferritin 511.1 ng/mL High 11-[address] [place] [address] [phone] Vitamin D Total 25(Oh) 23.7 ng/mL N 20-50 Laboratory test 06/20/2017 [facility] Troponin-I (TnI) 11.64 High <0.[address] ng/[place] [address] [phone] Lipid Profile 06/20/2017 [facility] Triglycerides 62 mg/dL 6 (Trig/Chol/HDL) [address] [place] [address] [phone] Cholesterol 155 mg/dL 7 HDL Cholesterol 64.8 mg/dL 8 LDL Cholesterol 78 mg/dL 9 CBC Auto Diff 06/09/2017 [facility] White Blood 7.6 10^3/uL N 3.5-10.[address] [place] [address] [phone] Red Blood Count 3.49 10^6/uL Low 4.0-5.4 [...] Cells % 0 Comp Metabolic Panel 06/09/2017 [facility] Sodium 134 mmol/L Low 139-[address] [place] [address] [phone] Potassium 4.6 mmol/L N 3.5-5.0 Chloride 102 [...] Egfr 83.0 >60 10 Laboratory test 06/09/2017 [facility] C Reactive 4.00 mg/L N < 5.00 [address] [place] [address] [phone] Erythrocyte Sed Rate 41 mm/Hr High 0-40 12 Laboratory test 06/09/2017 [facility] Vitamin D 38.4 ng/mL N 20-[address] Total 25(Oh) [place] [address] [phone] Laboratory test 06/09/2017 [facility] TSH (Thyroid 0.56 N 0.34 -5.[address] Stim Horm) mcIU/[place] [address] [phone] Urinalysis 02/24/2017 [facility] Urine Color Natalia Profile [address] [place] [address] [phone] Urine Appearance Turbid Urine Specific [place] 1.016 N 1.010-1.030 Urine pH 6.0 N [...] Present Abnormal Absent Urine Culture And 02/24/2017 [facility] Urine Culture SEE RESULT [address] [place] [address] [phone] CBC Auto Diff 02/17/2017 [facility] White Blood 5.2 10^3/uL N 3.5-[address] Count 0.8 [place] [address] [phone] Red Blood Count 3.46 10^6/uL Low 4.0-5.4 [...] Cells % 0.3 Comp Metabolic Panel 02/17/2017 [facility] Sodium 130 mmol/L Low 133-[address] [place] [address] [phone] Potassium 4.2 mmol/L N 3.5-5.0 Chloride 99 [...] Egfr 60.4 >60 14 Laboratory test 02/17/2017 [facility] Erythrocyte Sed 51 mm/Hr High 0-[address] [place] [address] [phone] C Reactive Protein 35.44 mg/L High < 5.00 16 Iron & Iron Binding 02/17/2017 [facility] Iron 19 g/dL Low 50-212 [address] [place] [address] [phone] Unsaturated Iron Binding 337 g/dL Total Iron Binding Capacity 356 g/dL N 250-450 % Iron Saturation 5 % Low 15-55 Laboratory test 02/17/2017 [facility] Ferritin 40.2 ng/mL N 11 -307 17 finding [address] [place] [address] [phone] Vitamin D Total 25(Oh) 35.8 ng/mL N 20-50 18 Laboratory test 11/24/2016 [facility] Ferritin 16.7 ng/mL N 11 -307 finding [address] [place] [address] [phone] Iron & Iron Binding 11/24/2016 [facility] Iron 36 g/dL Low 50-212 Cap[address] [employer] [place], [place] [phone] Unsaturated Iron Binding 353 g/dL N Total Iron Binding Capacity 389 g/dL N 250-450 % Iron Saturation 9 % Low 15-55 Laboratory test 11/24/2016 [facility] C Reactive 8.27 mg/L High < 5.00 19 finding 101 [facility] [place] [address] [phone] Erythrocyte Sed Rate 52 mm/Hr High 0-40 Comp Metabolic Panel 11/24/2016 [facility] Sodium 133 mmol/L N 133-145 [address] [place] [address] [phone] Potassium 4.5 mmol/L N 3.5-5.0 Chloride 102 [...] N >60 20 CBC Auto Diff 11/24/2016 [facility] White Blood 5.9 10^3/uL N 3.5-10.[address] [place] [address] [phone] Red Blood Count 3.16 10^6/uL Low 4.0-5.4 [...] % 0 N CBC Auto Diff 08/12/2016 [facility] White Blood 5.0 10^3/uL N 3.5-10.[address] [place] [address] [phone] Red Blood Count 3.25 10^6/uL Low 4.0-5.4 [...] % 0.1 N Comp Metabolic Panel 08/12/2016 [facility] Sodium 130 mmol/L Low 133-[address] [place] [address] [phone] Potassium 4.5 mmol/L N 3.5-5.0 Chloride 98 [...] 65.0 N >60 21 Laboratory test 08/12/2016 [facility] C Reactive 10.51 mg/L High < 5.[address] [place] [address] [phone] Erythrocyte Sed Rate 70 mm/Hr High 0-40 Vitamin D Total 25(Oh) 19.9 ng/mL Low 30-50 Comp Metabolic Panel 06/29/2016 [facility] Sodium 128 mmol/L Low 133-[address] [place] [address] [phone] Chloride 99 mmol/L Low 101-111 Co2 Carbon [...] 18 U/L N 13-39 Laboratory test 06/29/2016 [facility] C Reactive 11.78 mg/L High < 5.[address] [place] [address] [phone] CBC Auto Diff 06/29/2016 [facility] White Blood 7.5 N 3.5- 10.[address] Count 10^3/[place] [address] [phone] Red Blood Count 3.62 10^6/uL Low 4.0-5.4 [...] Cells % 0 N Laboratory test 06/29/2016 [facility] Erythrocyte Sed 73 mm/Hr High 0-[address] [place] [address] [phone] Basic Metabolic 04/28/2016 [facility] Sodium 129 Low 133-[address] mmol/[place] [address] [phone] Potassium 4.8 mmol/L N 3.5-5.0 Chloride 100 [...] N >60 25 CBC No Diff 04/28/2016 [facility] White Blood 7.8 10^3/uL N 3.5-10.[address] [place] [address] [phone] Red Blood Count 3.54 10^6/uL Low 4.0-5.4 Hemoglobin 10.7 g/dL Low 12.0-16.0 Hematocrit 32 % Low 35-47 Mean Corpuscular Volume 91 fL N 80-97 Mean Corpuscular Hemoglobin 30 pg N 27-31 Mean Corpuscular HGB Conc 33 g/dL N 31-36 Red Cell Distribution Width 13 % N 10.5-15 Platelet Count 263 10^3/uL N 150-450 Mean Platelet Volume 8 um3 N 7.4-10.4 Inr/Protime 04/28/2016 [facility] Inr 1.15 High 0.89-1.[address] [place] [address] [phone] Laboratory test 04/28/2016 [facility] Partial 30.1 seconds N 26.0-36.[address] [place] [address] Time PTT [phone] Type & Screen 04/28/2016 [facility] Patient O Positive N [address] [place] [address] [phone] Antibody Screen NEGATIVE N CBC Auto Diff 03/29/2016 [facility] White Blood 8.2 10^3/uL N 3.5-10.[address] Count [place], [place] [phone] Red Blood Count 3.68 10^6/uL Low 4.0-5.4 [...] Cells % 0.1 N Basic Metabolic 03/29/2016 [facility] Sodium 132 mmol/L Low 133-[address] [place] [address] [phone] Potassium 4.5 mmol/L N 3.5-5.0 Chloride 101 mmol/L N 101-111 Co2 Carbon Dioxide 27 mmol/L N 22-32 Anion Gap 4 mmol/L N 2-11 Glucose 94 mg/dL N 70-100 Blood Urea Nitrogen 22 mg/dL N 6-24 Creatinine 1.03 mg/dL High 0.51-0.95 BUN/Creatinine Ratio 21.4 High 8-20 Calcium 9.3 mg/dL N 8.6-10.3 Egfr Non- 51.8 N >60 Egfr 66.6 N >60 26 Laboratory 03/29/2016 [facility] Partial Thrombo 27.0 N 26.0- 36.3 test finding [address] [place] [address] [phone] Laboratory 03/08/2016 [facility] C Reactive < 1.00 N < 5.00 27 test finding [address] Protein mg/[place] [address] [phone] Laboratory 03/08/2016 [facility] Erythrocyte Sed 39 mm/Hr N 0- 40 test finding [address] [place] [address] [phone] Comp Metabolic 03/08/2016 [facility] Sodium 129 mmol/L Low 133 -[address] [place] [address] [phone] Chloride 103 mmol/L N 101-111 Co2 Carbon [...] N 13-39 30 Comp Metabolic Panel 02/09/2016 [facility] Sodium 132 mmol/L Low 133-[address] [place] [address] [phone] Potassium 4.5 mmol/L N 3.5-5.0 Chloride 102 [...] 76.9 N >60 31 Laboratory test 02/09/2016 [facility] C Reactive < 1.00 N < 5.00 [address] Protein mg/[place] [address] [phone] CBC Auto Diff 02/09/2016 [facility] White Blood 4.7 N 3.5- 10.[address] Count 10^3/uL [place], [place] [phone] Red Blood Count 3.60 10^6/uL Low 4.0-5.4 [...] Cells % 0 N Laboratory test 02/09/2016 [facility] Erythrocyte Sed 39 mm/Hr N 0-[address] [place] [address] [phone] Laboratory test 01/26/2016 [facility] C Reactive 7.52 mg/L High < 5.00 [address] [place] [address] [phone] Erythrocyte Sed Rate 61 mm/Hr High 0-40 Comp Metabolic Panel 01/26/2016 [facility] Sodium 131 mmol/L Low 133-[address] [place] [address] [phone] Potassium 4.8 mmol/L N 3.5-5.0 Chloride 103 [...] N >60 34 CBC Auto Diff 01/26/2016 [facility] White Blood 5.9 10^3/uL N 3.5-10.[address] [place] [address] [phone] Red Blood Count 3.59 10^6/uL Low 4.0-5.4 [...] % 0.2 N Comp Metabolic Panel 01/06/2016 [facility] Sodium 131 mmol/L Low 133-[address] [place] [address] [phone] Potassium 4.8 mmol/L N 3.5-5.0 Chloride 98 [...] 49.6 N >60 35 CBC Auto 01/06/2016 [facility] White Blood 11.4 10^3/uL High 3.5-10.[address] [place] [address] [phone] Red Blood Count 3.87 10^6/uL Low 4.0-5.4 [...] Cells % 0 N Laboratory test 01/06/2016 [facility] C Reactive 11.94 mg/L High < 5.00 [address] [place] [address] [phone] Erythrocyte Sed Rate 53 mm/Hr High 0-40 37 CBC Auto Diff 09/17/2015 [facility] White Blood 9.4 10^3/uL N 3.5-10.[address] [place] [address] [phone] Red Blood Count 3.68 10^6/uL Low 4.0-5.4 [...] Cells % 0 N Laboratory test 09/17/2015 [facility] C Reactive 3.01 mg/L N < 5.00 [address] [place] [address] [phone] Comp Metabolic 09/17/2015 [facility] Sodium 130 Low 133-[address] mmol/[place] [address] [phone] Potassium 4.0 mmol/L N 3.5-5.0 Chloride 100 [...] 71.4 N >60 39 Laboratory test 09/17/2015 [facility] Erythrocyte Sed 50 mm/Hr High 0-[address] [place] [address] [phone] Laboratory test 07/23/2015 [facility] Erythrocyte Sed 33 mm/Hr N 0-[address] [place] [address] [phone] CBC Auto Diff 07/23/2015 [facility] White Blood 6.2 N 3.5- 10.[address] Count 10^3/[place] [address] [phone] Red Blood Count 3.40 10^6/uL Low 4.0-5.4 [...] Cells % 0 N Laboratory test 07/23/2015 [facility] C Reactive 3.50 mg/L N < 5.00 [address] [place] [address] [phone] Comp Metabolic 07/23/2015 [facility] Sodium 132 Low 133-[address] mmol/[place] [address] [phone] Potassium 4.9 mmol/L N 3.5-5.0 Chloride 106 [...] 68.2 N >60 41 Laboratory test 07/23/2015 [facility] Cryoglobulin Negative % ppt N Negative [address] [place] [address] [phone] Vitamin B12 224 pg/mL N 180-914 43 Free T4 (Free Thyroxine) 1.15 ng/dL High 0.61-1.12 44 TSH (Thyroid Stim Horm) 0.62 ?IU/mL N 0.34-5.60 45 Protein 07/23/2015 [facility] Total 7.2 g/dL N 6.3 - Electrophoresis [address] Protein(Pep) 7.9 [place] [address] [phone] Albumin 3.2 g/dL Abnormal 3.4-4.7 Alpha-1 Globulin 0.3 g/dL N 0.1-0.3 Alpha-2 Globulin 1.0 g/dL N 0.6-1.0 Beta Globulin 1.1 g/dL N 0.7-1.2 Gamma Globulin 1.7 g/dL Abnormal 0.6-1.6 Albumin/Globulin Ratio 0.80 N Impression See Comment N 46 Laboratory test finding 07/23/2015 [facility] Anti Ssa/Ro <0.2 U N [address] [place] [address] [phone] Anti SSB LA <0.2 U N 48 Laboratory test 06/25/2015 [facility] Erythrocyte Sed 61 mm/Hr High 0-[address] [place] [address] [phone] CBC Auto Diff 06/25/2015 [facility] White Blood 7.7 N 3.5- 10.[address] Count 10^3/[place] [address] [phone] Red Blood Count 3.00 10^6/uL Low 4.0-5.4 [...] Cells % 0 N Laboratory test 06/25/2015 [facility] C Reactive 17.95 mg/L High < 5.00 [address] [place] [address] [phone] Comp Metabolic 06/25/2015 [facility] Sodium 130 mmol/L Low 133 -145 Panel [address] [place] [address] [phone] Potassium 4.3 mmol/L N 3.5-5.0 Chloride 101 [...] N >60 50 Comp Metabolic Panel 05/21/2015 [facility] Sodium 131 mmol/L Low 133-145 [address] [place] [address] [phone] Potassium 4.6 mmol/L N 3.5-5.0 Chloride 99 [...] N >60 51 CBC Auto Diff 05/21/2015 [facility] White Blood 9.0 10^3/uL N 3.5-10.[address] Count [place] [phone] Red Blood Count 3.55 10^6/uL Low 4.0-5.4 [...] Cells % 0 N Laboratory test 05/21/2015 [facility] C Reactive 64.88 mg/L High < 5.00 [address] [place] [address] [phone] Erythrocyte Sed Rate 89 mm/Hr High 0-40 53 Quantiferon Gold 05/21/2015 [facility] M tuberculosis Negative N Negative TB [address] [place] [address] [phone] Tuberculosis Antigen Value 0.00 IU/mL N 54 Laboratory test 04/22/2015 [facility] Sepideh (Antinuclear Negative N Negative finding [address] Antibodies) [place] [address] [phone] Angiotensin Converting Enzyme 9 U/L N 8 - 53 55 C Reactive Protein 55.48 mg/L High < 5.00 56 Cyclic Citrullinated Pep Igg >250.0 U Abnormal 57 Rheumatoid Factor <15 IU/mL N <15 58 Uric Acid 6.5 mg/dL N 2.3-6.6 59 Vitamin B12 347 pg/mL N 180-914 60 Vitamin D 1,25 04/22/2015 [facility] Vitamin D 14.4 ng/mL Low 30-50 61 And Vitamin D,[address] Total 25(Oh) [place] [address] [phone] Vitamin D, 1,25 Dihydroxy 42 pg/mL N 18-78 62 Laboratory test 04/22/2015 [facility] Lyme Disease Negative N Negative [address] [place] [address] [phone] CBC No Diff 03/17/2014 [facility] White Blood 5.8 10^3/uL N 4.8-10.[address] [place] [address] [phone] Red Blood Count 3.89 10^6/uL Low 4.0-5.4 Hemoglobin 11.2 g/dL Low 12.0-16.0 Hematocrit 35 % N 35-47 Mean Corpuscular Volume 90 fL N 80-97 Mean Corpuscular Hemoglobin 29 pg N 27-31 Mean Corpuscular HGB Conc 32 g/dL N 31-36 Red Cell Distribution Width 15 % N 10.5-15 Platelet Count 262 10^3/uL N 150-450 Mean Platelet Volume 9 um3 N 7.4-10.4 Basic Metabolic 03/17/2014 [facility] Sodium 131 mmol/L Low 133-145 Panel [address] [place] [address] [phone] Potassium 4.1 mmol/L N 3.5-5.0 Chloride 100 mmol/L Low 101-111 Co2 Carbon Dioxide 28 mmol/L N 22-32 Anion Gap 3 mmol/L N 2-11 Glucose 105 mg/dL High 70-100 Blood Urea Nitrogen 25 mg/dL High 6-24 Creatinine 1.01 mg/dL High 0.51-0.95 BUN/Creatinine Ratio 24.8 High 8-20 Calcium 10.0 mg/dL N 8.6-10.3 Egfr Non- 53.3 N >60 Egfr 68.5 N >60 65 Inr/Protime 03/17/2014 [facility] Inr 1.01 N 0.85-1.06 [address] [place] [address] [phone] Laboratory test 03/17/2014 [facility] Activated 28.5 seconds N 24.0-36.1 66 finding [address] [facility] [place] [address] Thrombo Time [phone] Type & Screen 03/17/2014 [facility] Patient Blood O Positive N [address] [facility] [place] [address] [phone] Antibody Screen NEGATIVE N 1 Because ethnic [...] inflammation: >10.00 5 Result TnIDx:11.64 Called to [id number] at: 08:19:45 by:[email or web address] Read back by:[id number] Desirable: <150 Borderline High: 150-199 High: [...] 13 SEE RESULT BELOW Name: TU HOSKINS Lloyd : [address]: Estuardo Christiansen NP Acct: [id number] Unit: [id number] AGE: 81 Location: LAB Re02/24/17 SEX: F Status: REG REF SPEC: [id number] ELIAS: 02/24/[address]: Estuardo Christiansen NP REQ: [id number] RECD: 02/24/17 STATUS: COMP _ SOURCE: URINE SPDESC: ORDERED: Urine Culture Procedure Result Reported Site Urine Culture Final 02/26/17- 0853 ML Organism 1 ESCHERICHIA COLI [place] Count >100,000 (Many) CFU/ML 1. ESCHERICHIA COLI [...] antibiotic reporting. * ML - MAIN LAB ([facility]) . END OF REPORT * ML=Testing performed at Main Lab DEPARTMENT OF PATHOLOGY, [address] [place] [address] Mode Wilburn M.D. Director [facility] # [id number] 14 Because ethnic data is not always [...] additional report will follow. Test Performed by: [place] [address] [employer] Tech: Rashaun Yo II, M.D., Ph.D. 43 Normal Range 180 to 914 Indeterminate Range 145 to 180 Deficient Range <145 44 Copy Result to: ERASTO BHARDWAJ ([id number]) 45 Copy Result to: ERASTO BHARDWAJ ([id number]) 46 RESULT: Polyclonal hypergammaglobulinemia Test Performed by: [place] [address] [employer] Tech: Rashaun Yo II, M.D., Ph.D. 47 REFERENCE VALUE <1.0 (Negative) Test Performed by: [place] [address] [employer] Tech: Rashaun Yo II, M.D., Ph.D. 48 REFERENCE VALUE <1.0 (Negative) Test Performed by: [place] [address] [employer] Tech: Rashaun Yo II, M.D., Ph.D. 49 Acute [...] when interpreting QuantiFERON-TB results. Test Performed by: [place] [address] [employer] Tech: Rashaun Yo II, M.D., Ph.D. 55 Test Performed by: [place] [address] [employer]: Rashaun Yo II, M.D., Ph.D. 56 Acute inflammation: >10.00 57 Interpretation: Strong Positive (>=60.0) REFERENCE VALUE <20.0 (Negative) Test Performed by: [place] [address] [employer]: Rashaun Yo II, M.D., Ph.D. 58 Test Performed by: [place] [address] [employer]: Rashaun Yo II, M.D., Ph.D. 59 this week 60 Normal Range 180 to 914 Indeterminate Range 145 to 180 Deficient Range <145 61 this week 62 Test Performed by: [place] [address] [employer]: Rashaun Yo II, M.D., Ph.D. 63 Serologic response to B. burgdorferi infection is not detected, but cannot rule out early infection during which low or undetectable antibody levels to B. burgdorferi may be present. If clinically indicated, a new serum specimen should be submitted in 7-14 days. Test Performed by: [place] [address] [employer]: Rashaun Yo II, M.D., Ph.D. [address] [facility] 03/[birth year] 67 Because ethnic data is not [...] 03/20 Procedures Date Code Description Status 04/21/2018 24446 Holter Monitor Review (24 hr)dr suarez & interp only Completed 04/16/2018 93549 ECG Monitor/Recording W/Visual Superimposition Completed Scanning 04/09/2018 [id number] Bone Mineral Density Test Completed 03/28/2018 60864 EKG Tracing & Interpretation Completed 03/26/2018 99617 Admin Of Inj Completed 03/26/2018 09647 EKG Tracing & Interpretation Completed 02/21/2018 34099 EKG Tracing & Interpretation Completed 09/22/2017 21187 Admin Of Inj Completed 09/07/2017 38886 EKG Tracing & Interpretation Completed 07/28/2017 75137 Mobile Cardiovascular Telemetry Over 24 HR Up To 30 Completed Days 07/19/2017 33187 ECHO Transthoracic, Real-Time 2D With Doppler And Completed Color Flow 07/19/2017 31864 ECHO Transthoracic, Real-Time 2D With Doppler And Completed Color Flow 07/05/2017 62971 EKG Tracing & Interpretation Completed 06/20/2017 46922 ECHO Transthorasic Realtime 2D W Doppler & Color Flow Completed Hosp 06/20/2017 43899 Cath PLMT&NJX L Ventriculog Img S&I Completed 02/24/2017 33814 Admin Of Inj Completed 05/06/2016 53402 Arthroplasty,Total Shoulder Replacement (TSR) Completed 05/06/2016 35233 Arthroplasty,Total Shoulder Replacement (TSR) Completed 02/17/2016 03334 Inject/Drain Joint/Bursa Major W/O US Completed 01/06/2016 08417 Chemotherpy Admin Subcutaneous/Im Non-Hormonal Completed Anti-Neoplastic 08/25/2015 25938 Nerve Conduction 07-08 Studies Completed 06/24/2015 56637 Chemotherpy Admin Subcutaneous/Im Non-Hormonal Completed Anti-Neoplastic 05/21/2015 [id number] Bone Mineral Density Test Completed 03/20/2014 93052 Repair Nonunion/Malunion Humerus Completed 03/20/2014 88045 Repair Nonunion/Malunion Humerus Completed 03/05/2014 83723 Rad Exam; Humerus Completed 02/03/2014 84082 Rad Exam; Humerus Completed 01/08/2014 27009 Rad Exam; Humerus Completed 12/17/2013 65223 closed tx humeral shaft fx w/manipulation w w/o Completed traction Encounters Type Date Location Provider Dx Diagnosis Office Visit 2018 Rheumatology Estuardo Christiansen, 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 I48.3 Typical atrial Of Director Of Software Development Cuca Davis flutter I44.7 Left bundle-branch block, unspecified I25.10 Athscl heart disease of [place] coronary artery w/o ang pctrs Office Visit 03/28/2018 3:15p [facility] Donaldo D. I44.7 Left bundle-branch Of Director Of Software Development Ryan M.D. 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 block, unspecified I25.10 Athscl heart disease of [place] coronary artery w/o ang pctrs I25.5 Ischemic cardiomyopathy I10 Essential (primary) hypertension Office Visit 10/18/2017 8:45a [facility] Donaldo Martell I44.7 Left bundle-branch Of Caty Davis M.D. 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 disease of [place] coronary artery w/o ang pctrs I47.1 Supraventricular tachycardia I44.7 Left bundle-branch block, unspecified I10 Essential (primary) hypertension I25.5 Ischemic cardiomyopathy Z95.1 Presence of aortocoronary bypass graft Office Visit 07/05/2017 9:45a [facility] Donaldo Martell I21.4 Non-St elevation Of Caty Davis M.D. 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 Services Of [facility] rheu factor mult site w/o org/sys involv D50.9 Iron deficiency anemia, unspecified M81.0 Age-related osteoporosis w/o current pathological fracture E55.9 Vitamin D deficiency, unspecified R53.83 Other fatigue 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 M25.512 Pain in left shoulder Office Visit 02/24/2017 9:00a Rheumatology Estuardo Christiansen M05.79 Rheu arthritis Services Of [facility] rheu factor mult site w/o org/sys involv R79.82 Elevated C-reactive protein (CRP) D50.9 Iron deficiency anemia, unspecified M81.0 Age-related osteoporosis w/o current pathological fracture E55.9 Vitamin D deficiency, unspecified R05 Cough R30.0 Dysuria Z79.899 Other [facility] (current) drug therapy Z92.29 Personal history of other drug therapy Office Visit 12/06/2016 1:30p Orthopedic Carla Workman, M05.79 Rheu arthritis w Services Of MD lora factor marcela C.M.A. 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 right shoulder Office Visit 03/02/2016 Rheumatology Marvin M05.Darshan Ot rheumatoid 10:00a Services Of Caty Negro M.D. arthritis w rheumatoid factor mult site G62.9 Polyneuropathy, unspecified Z79.899 Other [facility] (current) drug therapy M81.0 Age-related osteoporosis w/o current pathological fracture Office Visit 02/17/2016 Orthopedic Adriel F M19.011 Primary 3:00p Services Of MD Krystal osteoarthritis, C.M.A. right shoulder S46.011A Strain of musc/tend the rotator cuff of right shoulder, init Office Visit 01/06/2016 4:00p Rheumatology Marvin M81.0 Age-related Services Of Caty Negro M.D. 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 arthritis w rheumatoid factor mult site Z79.899 Other [facility] (current) drug therapy R20.8 Other disturbances of [...] Thurman Shaft Closed Plan of Treatment Future Appointment(s):07/13/2018 12:15 pm - Donaldo Davis M.D. at [facility]08/28/2018 9:00 am - KEILA Fraga at Rheumatology [facility] Of [facility]2018 - LEONEL FragaPM05.79 Rheumatoid arthritis with rheumatoid factor of multiple siteComments:Will get labs today.I will check CT scan If your labs normal and yo do not have inflammation, we will not restart on the MTX.Follow up:8 weeks. Labs wearcG58 CoughComments:I will need to review CT scanI48.3 Typical atrial flutterComments:Please call Dr. Davis and let him know that you do not have any more Xarelto.M25.511 Pain in right shoulderNew Medication:Diclofenac Sodium 1 % - apply 2 grams on RT shoulder twice dailyComments:We discussed that you may start using the topical antiinflammatory on your shoulder.M81.0 Age-related osteoporosis without current pathological yktnfwC25.899 Other mcc (current) drug therapy
--- OUTSIDE RECORDS SUMMARY | 2018-07-11 15:39 | XMS REPORT | Continuity of Care Document ---
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 Erasto Bhardwaj MD Primary Care Physician Unavailable Payers Date Identification Numbers Payment Provider Subscriber Effective: 2004 Policy Number: [id number] Medicare Tu Hoskins PayID: [id number] [address] [place] [address] Effective: 2004 Policy Number: [facility] Tu Hoskins [id number] PayID: [id number] [address] [place] [address] Problems Active Problems Provider Date Polyneuropathy Jody [...] Annsatnam Ledezmak, 2018 1% RT shoulder twice [employer] Gel daily Amiodarone HCL 1 tab a day 60tabs I48.3 Donaldo Davis, 03/28/2018 200mg M.D. Tablets Xarelto 1 by mouth every 90tabs I48.3 Donaldo Davis, 03/28/2018 20mg Tablets day M.D. Protonix 1/day [place], 04/17/2017 40mg Metoprolol Tartrate 1 by mouth twice [place], 03/09/2017 a day 50mg Tablets Ropinirole HCL 1 at hs [place], 02/24/2017 2mg Prolia 60 mg sc q6mon 60mg M81.0 Estuardo Christiansen, 02/24/2017 60mg/ml Solution [employer] [facility] Vitamin D3 Ultra 1 by mouth every 90caps Estuardo Christiansen, 11/29/2016 Strength day [employer] 5000Unit Capsules Methotrexate 4 tabs by mouth 60tabs M05.79 Estuardo Chirstiansen, 08/12/2016 2.5mg every week (on [employer] Tablets hold) Z79.899 Folic Acid 1 by mouth every 90tabs Z79.899 Estuardo Christiansen, [employer] 07/15/2016 1mg Tablets day in the morning Ambien 1 po qhs prn Unknown 5mg Losartan Potassium Take 1 Tablet By Unknown 50mg Mouth Every Day Tablets Vitamin B12 1 by mouth every Unknown 1000mcg day Tablets ER History Medications Warfarin Sodium 1 tablet mon,thur Unknown 06/27/2017 - 1mg and 1/2 tablet 03/26/2018 Tablets fri,sat,sun as directed [facility] Furosemide Take 1 Tablet By Joao Arshad MD 06/20/2017 - 40mg Mouth Daily 10/17/2017 Tablets Metformin HCL 1 tablet po daily [place], 05/10/2017 - 500mg MD Erasto 08/08/2017 Cipro 1 tab po twice 10tabs R30.0 Estuardo Christiansen, 02/24/2017 - 250mg Tablets daily for 5 days. [facility] 06/09/2017 May stop after 3 days if symptoms resolved. Pyridium 1 as needed every 6 1tabs R30.0 Andrewofia Kuldip, 02/24/2017 - 200mg hours [employer] [facility] 02/24/2017 Tablets Bactrim DS 1 tab po bid 6units R30.0 Estuardo Christiansen, 02/24/2017 - 800-160mg [employer] [facility] 02/24/2017 Macrodantin 1 po qid 10caps R30.0 Estuardo Christiansen, 02/24/2017 - 25mg [employer] [facility] 02/24/2017 Capsules Iron 1 by mouth every 90tabs Estuardo Christiansen, 11/29/2016 - 325(65Fe) mg day ( last taken [facility] 08/08/2017 Tablets 07/04/17) Vitamin D3 Ultra 1 by mouth every 90caps Estuardo Christiansen, 08/15/2016 - Strength day [facility] 11/17/2016 5000Unit Capsules Methotrexate 6 tbs by mouth 72tabs M05.79 Estuardo Christiansen, 07/15/2016 - 2.5mg every week [facility] 08/12/2016 Tablets Z79.899 Calcium 500 +D 1 by mouth twice 180tabs M81.0 Estuardo Christiansen, 07/15/2016 - a day [facility] 10/17/2017 [id number] Tablets Oxycodone HCL take 1 - 2 [...] Ledezmak, 07/24/2015 - 50mg/4ML mg/kg repeat at [facility] 07/15/2016 Solution weeks 0 and 4 weeks and continue every 8 weeks thereafter On Hold Z79.899 Gabapentin take 1 capsule by 60caps Marvin eNgro, 05/15/2015 - 100mg Capsules mouth at night [...] capsule by 14caps Marvin Negro, 04/27/2015 - [id number] mouth once weekly M.DSailaja 01/06/2016 Capsules Tramadol [...] Unknown - 50mg 06/20/2017 Creon Unknown - [id number] 04/16/2014 Aspirin Ec Lo-Dose Unknown - 81mg 07/04/2017 Medications Administered in Office Medication SIG Qnty Indications Ordering Provider Date Prolia Injection, DenosumabEstuardo FNP 03/26/2018 1MG Injection Prolia Injection, Denosumab, Nurse Visit 09/22/2017 1MG Injection Prolia Injection, DenosumabEstuardo FNP 02/24/2017 1MG Injection Depomedrol 40MG Adriel Rice MD 02/17/2016 Injection Prolia Injection, DenosumabMarvin M.D. 01/06/2016 1MG Injection Prolia Injection, Denosumab, Nurse Visit 06/24/2015 1MG Injection Immunizations CPT Code Status Date Vaccine Reaction Lot # [id number] Given 12/19/2017 Fluzone High Dose no immediate reaction [id number] Given 01/06/2016 Influ Virus Vaccine, [id number] Quadrivalent, Split [place], [place] [id number] Given 10/03/2014 Pneumococcal Conjugate Vaccine 13 Valent For Intramuscular Use [id number] Given Unknown Pneumonia Vaccine Vital Signs Date [...] Test Result H/L Range Note Order 04/16/2018 [facility] In-House Holter Monitor <pending> CBC Auto Diff 12/20/2017 [facility] White Blood 6.7 10^3/uL N 3.5-10.[address] [place] [address] [phone] Red Blood Count 3.86 10^6/uL Low 4.00-5.40 [...] Cells % 0.1 Comp Metabolic Panel 12/20/2017 [facility] Sodium 132 mmol/L Low 135-[address] [place] [address] [phone] Potassium 4.4 mmol/L N 3.5-5.0 Chloride 100 [...] Egfr 70.2 >60 1 Laboratory test 12/20/2017 [facility] C Reactive 20.74 mg/L High <8.[address] Protein [place], [place] [id number] [phone] Erythrocyte Sed Rate 38 mm/Hr N 0-40 CBC Auto Diff 07/01/2017 [facility] White Blood 8.4 10^3/uL N 3.5-10.[address] [place] [address] [phone] Red Blood Count 3.61 10^6/uL Low 4.0-5.4 [...] Cells % 0 Comp Metabolic Panel 07/01/2017 [facility] Sodium 134 mmol/L Low 139-[address] [place] [address] [phone] Potassium 3.9 mmol/L N 3.5-5.0 Chloride 97 [...] Egfr 78.5 >60 3 Laboratory test 07/01/2017 [facility] Erythrocyte Sed 45 mm/Hr High 0-40 finding [address] [place] [address] [phone] C Reactive Protein 64.47 mg/L High < 5.00 4 Iron & Iron Binding 07/01/2017 [facility] Iron 43 g/dL Low 50-[address] [place] [address] [phone] Unsaturated Iron Binding 243 g/dL Total Iron Binding Capacity 286 g/dL N 250-450 Transferrin 204 mg/dL N 203-362 % Iron Saturation 15 % N 15-55 Laboratory test 07/01/2017 [facility] Ferritin 511.1 ng/mL High 11-[address] [place] [address] [phone] Vitamin D Total 25(Oh) 23.7 ng/mL N 20-50 Laboratory test 06/20/2017 [facility] Troponin-I (TnI) 11.64 High <0.[address] ng/[place] [address] [phone] Lipid Profile 06/20/2017 [facility] Triglycerides 62 mg/dL 6 (Trig/Chol/HDL) [address] [place] [address] [phone] Cholesterol 155 mg/dL 7 HDL Cholesterol 64.8 mg/dL 8 LDL Cholesterol 78 mg/dL 9 CBC Auto Diff 06/09/2017 [facility] White Blood 7.6 10^3/uL N 3.5-10.[address] [place] [address] [phone] Red Blood Count 3.49 10^6/uL Low 4.0-5.4 [...] Cells % 0 Comp Metabolic Panel 06/09/2017 [facility] Sodium 134 mmol/L Low 139-[address] [place] [address] [phone] Potassium 4.6 mmol/L N 3.5-5.0 Chloride 102 [...] Egfr 83.0 >60 10 Laboratory test 06/09/2017 [facility] C Reactive 4.00 mg/L N < 5.00 [address] [place] [address] [phone] Erythrocyte Sed Rate 41 mm/Hr High 0-40 12 Laboratory test 06/09/2017 [facility] Vitamin D 38.4 ng/mL N 20-[address] Total 25(Oh) [place] [address] [phone] Laboratory test 06/09/2017 [facility] TSH (Thyroid 0.56 N 0.34 -5.[address] Stim Horm) mcIU/[place] [address] [phone] Urinalysis 02/24/2017 [facility] Urine Color Natalia Profile [address] [place] [address] [phone] Urine Appearance Turbid Urine Specific [place] 1.016 N 1.010-1.030 Urine pH 6.0 N [...] Present Abnormal Absent Urine Culture And 02/24/2017 [facility] Urine Culture SEE RESULT [address] [place] [address] [phone] CBC Auto Diff 02/17/2017 [facility] White Blood 5.2 10^3/uL N 3.5-[address] Count 0.8 [place] [address] [phone] Red Blood Count 3.46 10^6/uL Low 4.0-5.4 [...] Cells % 0.3 Comp Metabolic Panel 02/17/2017 [facility] Sodium 130 mmol/L Low 133-[address] [place] [address] [phone] Potassium 4.2 mmol/L N 3.5-5.0 Chloride 99 [...] Egfr 60.4 >60 14 Laboratory test 02/17/2017 [facility] Erythrocyte Sed 51 mm/Hr High 0-[address] [place] [address] [phone] C Reactive Protein 35.44 mg/L High < 5.00 16 Iron & Iron Binding 02/17/2017 [facility] Iron 19 g/dL Low 50-212 [address] [place] [address] [phone] Unsaturated Iron Binding 337 g/dL Total Iron Binding Capacity 356 g/dL N 250-450 % Iron Saturation 5 % Low 15-55 Laboratory test 02/17/2017 [facility] Ferritin 40.2 ng/mL N 11 -307 17 finding [address] [place] [address] [phone] Vitamin D Total 25(Oh) 35.8 ng/mL N 20-50 18 Laboratory test 11/24/2016 [facility] Ferritin 16.7 ng/mL N 11 -307 finding [address] [place] [address] [phone] Iron & Iron Binding 11/24/2016 [facility] Iron 36 g/dL Low 50-212 [address] [employer] [place], [place] [phone] Unsaturated Iron Binding 353 g/dL N Total Iron Binding Capacity 389 g/dL N 250-450 % Iron Saturation 9 % Low 15-55 Laboratory test 11/24/2016 [facility] C Reactive 8.27 mg/L High < 5.00 19 finding [address] [facility] [place] [address] [phone] Erythrocyte Sed Rate 52 mm/Hr High 0-40 Comp Metabolic Panel 11/24/2016 [facility] Sodium 133 mmol/L N 133-145 [address] [place] [address] [phone] Potassium 4.5 mmol/L N 3.5-5.0 Chloride 102 [...] N >60 20 CBC Auto Diff 11/24/2016 [facility] White Blood 5.9 10^3/uL N 3.5-10.[address] [place] [address] [phone] Red Blood Count 3.16 10^6/uL Low 4.0-5.4 [...] % 0 N CBC Auto Diff 08/12/2016 [facility] White Blood 5.0 10^3/uL N 3.5-10.[address] [place] [address] [phone] Red Blood Count 3.25 10^6/uL Low 4.0-5.4 [...] % 0.1 N Comp Metabolic Panel 08/12/2016 [facility] Sodium 130 mmol/L Low 133-[address] [place] [address] [phone] Potassium 4.5 mmol/L N 3.5-5.0 Chloride 98 [...] 65.0 N >60 21 Laboratory test 08/12/2016 [facility] C Reactive 10.51 mg/L High < 5.[address] [place] [address] [phone] Erythrocyte Sed Rate 70 mm/Hr High 0-40 Vitamin D Total 25(Oh) 19.9 ng/mL Low 30-50 Comp Metabolic Panel 06/29/2016 [facility] Sodium 128 mmol/L Low 133-[address] [place] [address] [phone] Chloride 99 mmol/L Low 101-111 Co2 Carbon [...] 18 U/L N 13-39 Laboratory test 06/29/2016 [facility] C Reactive 11.78 mg/L High < 5.[address] [place] [address] [phone] CBC Auto Diff 06/29/2016 [facility] White Blood 7.5 N 3.5- 10.[address] Count 10^3/[place] [address] [phone] Red Blood Count 3.62 10^6/uL Low 4.0-5.4 [...] Cells % 0 N Laboratory test 06/29/2016 [facility] Erythrocyte Sed 73 mm/Hr High 0-[address] [place] [address] [phone] Basic Metabolic 04/28/2016 [facility] Sodium 129 Low 133-[address] mmol/[place] [address] [phone] Potassium 4.8 mmol/L N 3.5-5.0 Chloride 100 [...] N >60 25 CBC No Diff 04/28/2016 [facility] White Blood 7.8 10^3/uL N 3.5-10.[address] [place] [address] [phone] Red Blood Count 3.54 10^6/uL Low 4.0-5.4 Hemoglobin 10.7 g/dL Low 12.0-16.0 Hematocrit 32 % Low 35-47 Mean Corpuscular Volume 91 fL N 80-97 Mean Corpuscular Hemoglobin 30 pg N 27-31 Mean Corpuscular HGB Conc 33 g/dL N 31-36 Red Cell Distribution Width 13 % N 10.5-15 Platelet Count 263 10^3/uL N 150-450 Mean Platelet Volume 8 um3 N 7.4-10.4 Inr/Protime 04/28/2016 [facility] Inr 1.15 High 0.89-1.[address] [place] [address] [phone] Laboratory test 04/28/2016 [facility] Partial 30.1 seconds N 26.0-36.[address] [place] [address] Time PTT [phone] Type & Screen 04/28/2016 [facility] Patient O Positive N [address] [place] [place] [address] [phone] Antibody Screen NEGATIVE N CBC Auto Diff 03/29/2016 [facility] White Blood 8.2 10^3/uL N 3.5-10.[address] Count [place], [place] [phone] Red Blood Count 3.68 10^6/uL Low 4.0-5.4 [...] Cells % 0.1 N Basic Metabolic 03/29/2016 [facility] Sodium 132 mmol/L Low 133-[address] [place] [address] [phone] Potassium 4.5 mmol/L N 3.5-5.0 Chloride 101 mmol/L N 101-111 Co2 Carbon Dioxide 27 mmol/L N 22-32 Anion Gap 4 mmol/L N 2-11 Glucose 94 mg/dL N 70-100 Blood Urea Nitrogen 22 mg/dL N 6-24 Creatinine 1.03 mg/dL High 0.51-0.95 BUN/Creatinine Ratio 21.4 High 8-20 Calcium 9.3 mg/dL N 8.6-10.3 Egfr Non- 51.8 N >60 Egfr 66.6 N >60 26 Laboratory 03/29/2016 [facility] Partial Thrombo 27.0 N 26.0- 36.3 test finding [address] [place] [address] [phone] Laboratory 03/08/2016 [facility] C Reactive < 1.00 N < 5.00 27 test finding [address] Protein mg/[place] [address] [phone] Laboratory 03/08/2016 [facility] Erythrocyte Sed 39 mm/Hr N 0- 40 test finding [address] [place] [address] [phone] Comp Metabolic 03/08/2016 [facility] Sodium 129 mmol/L Low 133 -[address] [place] [address] [phone] Chloride 103 mmol/L N 101-111 Co2 Carbon [...] N 13-39 30 Comp Metabolic Panel 02/09/2016 [facility] Sodium 132 mmol/L Low 133-[address] [place] [address] [phone] Potassium 4.5 mmol/L N 3.5-5.0 Chloride 102 [...] 76.9 N >60 31 Laboratory test 02/09/2016 [facility] C Reactive < 1.00 N < 5.00 [address] Protein mg/[place] [address] [phone] CBC Auto Diff 02/09/2016 [facility] White Blood 4.7 N 3.5- 10.[address] Count 10^3/uL [place], [place] [address] [phone] Red Blood Count 3.60 10^6/uL Low 4.0-5.4 [...] Cells % 0 N Laboratory test 02/09/2016 [facility] Erythrocyte Sed 39 mm/Hr N 0-[address] [place] [address] [phone] Laboratory test 01/26/2016 [facility] C Reactive 7.52 mg/L High < 5.00 [address] [place] [address] [phone] Erythrocyte Sed Rate 61 mm/Hr High 0-40 Comp Metabolic Panel 01/26/2016 [facility] Sodium 131 mmol/L Low 133-[address] [place] [address] [phone] Potassium 4.8 mmol/L N 3.5-5.0 Chloride 103 [...] N >60 34 CBC Auto Diff 01/26/2016 [facility] White Blood 5.9 10^3/uL N 3.5-10.[address] [place] [address] [phone] Red Blood Count 3.59 10^6/uL Low 4.0-5.4 [...] % 0.2 N Comp Metabolic Panel 01/06/2016 [facility] Sodium 131 mmol/L Low 133-[address] [place] [address] [phone] Potassium 4.8 mmol/L N 3.5-5.0 Chloride 98 [...] 49.6 N >60 35 CBC Auto 01/06/2016 [facility] White Blood 11.4 10^3/uL High 3.5-10.[address] [place] [address] [phone] Red Blood Count 3.87 10^6/uL Low 4.0-5.4 [...] Cells % 0 N Laboratory test 01/06/2016 [facility] C Reactive 11.94 mg/L High < 5.00 [address] [place] [address] [phone] Erythrocyte Sed Rate 53 mm/Hr High 0-40 37 CBC Auto Diff 09/17/2015 [facility] White Blood 9.4 10^3/uL N 3.5-10.[address] [place] [address] [phone] Red Blood Count 3.68 10^6/uL Low 4.0-5.4 [...] Cells % 0 N Laboratory test 09/17/2015 [facility] C Reactive 3.01 mg/L N < 5.00 [address] [place] [address] [phone] Comp Metabolic 09/17/2015 [facility] Sodium 130 Low 133-[address] mmol/[place] [address] [phone] Potassium 4.0 mmol/L N 3.5-5.0 Chloride 100 [...] 71.4 N >60 39 Laboratory test 09/17/2015 [facility] Erythrocyte Sed 50 mm/Hr High 0-[address] [place] [address] [phone] Laboratory test 07/23/2015 [facility] Erythrocyte Sed 33 mm/Hr N 0-[address] [place] [address] [phone] CBC Auto Diff 07/23/2015 [facility] White Blood 6.2 N 3.5- 10.[address] Count 10^3/[place] [address] [phone] Red Blood Count 3.40 10^6/uL Low 4.0-5.4 [...] Cells % 0 N Laboratory test 07/23/2015 [facility] C Reactive 3.50 mg/L N < 5.00 [address] [place] [address] [phone] Comp Metabolic 07/23/2015 [facility] Sodium 132 Low 133-[address] mmol/[place] [address] [phone] Potassium 4.9 mmol/L N 3.5-5.0 Chloride 106 [...] 68.2 N >60 41 Laboratory test 07/23/2015 [facility] Cryoglobulin Negative % ppt N Negative [address] [place] [address] [phone] Vitamin B12 224 pg/mL N 180-914 43 Free T4 (Free Thyroxine) 1.15 ng/dL High 0.61-1.12 44 TSH (Thyroid Stim Horm) 0.62 ?IU/mL N 0.34-5.60 45 Protein 07/23/2015 [facility] Total 7.2 g/dL N 6.3 - Electrophoresis [address] Protein(Pep) 7.9 [place] [address] [phone] Albumin 3.2 g/dL Abnormal 3.4-4.7 Alpha-1 Globulin 0.3 g/dL N 0.1-0.3 Alpha-2 Globulin 1.0 g/dL N 0.6-1.0 Beta Globulin 1.1 g/dL N 0.7-1.2 Gamma Globulin 1.7 g/dL Abnormal 0.6-1.6 Albumin/Globulin Ratio 0.80 N Impression See Comment N 46 Laboratory test finding 07/23/2015 [facility] Anti Ssa/Ro <0.2 U N [address] [place] [address] [phone] Anti SSB LA <0.2 U N 48 Laboratory test 06/25/2015 [facility] Erythrocyte Sed 61 mm/Hr High 0-[address] [place] [address] [phone] CBC Auto Diff 06/25/2015 [facility] White Blood 7.7 N 3.5- 10.[address] Count 10^3/[place] [address] [phone] Red Blood Count 3.00 10^6/uL Low 4.0-5.4 [...] Cells % 0 N Laboratory test 06/25/2015 [facility] C Reactive 17.95 mg/L High < 5.00 [address] [place] [address] [phone] Comp Metabolic 06/25/2015 [facility] Sodium 130 mmol/L Low 133 -145 Panel [address] [place] [address] [phone] Potassium 4.3 mmol/L N 3.5-5.0 Chloride 101 [...] N >60 50 Comp Metabolic Panel 05/21/2015 [facility] Sodium 131 mmol/L Low 133-145 [address] [place] [address] [phone] Potassium 4.6 mmol/L N 3.5-5.0 Chloride 99 [...] N >60 51 CBC Auto Diff 05/21/2015 [facility] White Blood 9.0 10^3/uL N 3.5-10.[address] Count [place] [address] [phone] Red Blood Count 3.55 10^6/uL Low 4.0-5.4 [...] Cells % 0 N Laboratory test 05/21/2015 [facility] C Reactive 64.88 mg/L High < 5.00 [address] [place] [address] [phone] Erythrocyte Sed Rate 89 mm/Hr High 0-40 53 Quantiferon Gold 05/21/2015 [facility] M tuberculosis Negative N Negative TB [address] [place] [address] [phone] Tuberculosis Antigen Value 0.00 IU/mL N 54 Laboratory test 04/22/2015 [facility] Sepideh (Antinuclear Negative N Negative finding [address] Antibodies) [place] [address] [phone] Angiotensin Converting Enzyme 9 U/L N 8 - 53 55 C Reactive Protein 55.48 mg/L High < 5.00 56 Cyclic Citrullinated Pep Igg >250.0 U Abnormal 57 Rheumatoid Factor <15 IU/mL N <15 58 Uric Acid 6.5 mg/dL N 2.3-6.6 59 Vitamin B12 347 pg/mL N 180-914 60 Vitamin D 1,25 04/22/2015 [facility] Vitamin D 14.4 ng/mL Low 30-50 61 And Vitamin D,[address] Total 25(Oh) [place] [address] [phone] Vitamin D, 1,25 Dihydroxy 42 pg/mL N 18-78 62 Laboratory test 04/22/2015 [facility] Lyme Disease Negative N Negative [address] [place] [address] [phone] CBC No Diff 03/17/2014 [facility] White Blood 5.8 10^3/uL N 4.8-10.[address] [place] [address] [phone] Red Blood Count 3.89 10^6/uL Low 4.0-5.4 Hemoglobin 11.2 g/dL Low 12.0-16.0 Hematocrit 35 % N 35-47 Mean Corpuscular Volume 90 fL N 80-97 Mean Corpuscular Hemoglobin 29 pg N 27-31 Mean Corpuscular HGB Conc 32 g/dL N 31-36 Red Cell Distribution Width 15 % N 10.5-15 Platelet Count 262 10^3/uL N 150-450 Mean Platelet Volume 9 um3 N 7.4-10.4 Basic Metabolic 03/17/2014 [facility] Sodium 131 mmol/L Low 133-145 Panel [address] [place] [address] [phone] Potassium 4.1 mmol/L N 3.5-5.0 Chloride 100 mmol/L Low 101-111 Co2 Carbon Dioxide 28 mmol/L N 22-32 Anion Gap 3 mmol/L N 2-11 Glucose 105 mg/dL High 70-100 Blood Urea Nitrogen 25 mg/dL High 6-24 Creatinine 1.01 mg/dL High 0.51-0.95 BUN/Creatinine Ratio 24.8 High 8-20 Calcium 10.0 mg/dL N 8.6-10.3 Egfr Non- 53.3 N >60 Egfr 68.5 N >60 65 Inr/Protime 03/17/2014 [facility] Inr 1.01 N 0.85-1.06 [address] [place] [address] [phone] Laboratory test 03/17/2014 [facility] Activated 28.5 seconds N 24.0-36.1 66 finding [address] [facility] [place] [address] Thrombo Time [phone] Type & Screen 03/17/2014 [facility] Patient Blood O Positive N [address] [facility] [place] [address] [phone] Antibody Screen NEGATIVE N 1 Because ethnic [...] inflammation: >10.00 5 Result TnIDx:11.64 Called to [id number] at: 08:19:45 by:[id number] Read back by:[id number] Desirable: <150 Borderline High: 150-199 High: [...] [address]: Estuardo Christiansen NP Acct: [id number] Unit: [id number] AGE: 81 Location: LAB Re02/24/17 SEX: F Status: REG REF SPEC: [id number] ELIAS: 02/24/[address]: Estuardo Christiansen NP REQ: [id number] RECD: 02/24/17 STATUS: COMP _ SOURCE: URINE SPDESC: ORDERED: Urine Culture Procedure Result Reported Site Urine Culture Final 02/26/17- 0853 ML Organism 1 ESCHERICHIA COLI Spencer Count >100,000 (Many) CFU/ML 1. ESCHERICHIA COLI [...] antibiotic reporting. * ML - MAIN LAB ([facility]) . END OF REPORT * ML=Testing performed at Main Lab DEPARTMENT OF PATHOLOGY, [address] [place] [address] Mode Wilburn M.D. Director [facility] # [id number] 14 Because ethnic data is not always [...] additional report will follow. Test Performed by: [place] [address] Emergency Medical Technician/Driver: Rashaun Yo II, M.D., Ph.D. 43 Normal Range 180 to 914 Indeterminate Range 145 to 180 Deficient Range <145 44 Copy Result to: ERASTO BHARDWAJ ([id number]) 45 Copy Result to: ERASTO BHARDWAJ ([id number]) 46 RESULT: Polyclonal hypergammaglobulinemia Test Performed by: [place] [address] Emergency Medical Technician/Driver: Rashaun Yo II, M.D., Ph.D. 47 REFERENCE VALUE <1.0 (Negative) Test Performed by: [place] [address] Emergency Medical Technician/Driver: Rashaun Yo II, M.D., Ph.D. 48 REFERENCE VALUE <1.0 (Negative) Test Performed by: [place] [address] Emergency Medical Technician/Driver: Rashaun Yo II, M.D., Ph.D. 49 Acute [...] when interpreting QuantiFERON-TB results. Test Performed by: [place] [address] Emergency Medical Technician/Driver: Rashaun Yo II, M.D., Ph.D. 55 Test Performed by: [place] [address] Emergency Medical Technician/Driver: Rashaun Yo II, M.D., Ph.D. 56 Acute inflammation: >10.00 57 Interpretation: Strong Positive (>=60.0) REFERENCE VALUE <20.0 (Negative) Test Performed by: [place] [address] Emergency Medical Technician/Driver: Rashaun Yo II, M.D., Ph.D. 58 Test Performed by: [place] [address] Emergency Medical Technician/Driver: Rashaun Yo II, M.D., Ph.D. 59 this week 60 Normal Range 180 to 914 Indeterminate Range 145 to 180 Deficient Range <145 61 this week 62 Test Performed by: [place] [address] Emergency Medical Technician/Driver: Rashaun Yo II, M.D., Ph.D. 63 Serologic response to B. burgdorferi infection is not detected, but cannot rule out early infection during which low or undetectable antibody levels to B. burgdorferi may be present. If clinically indicated, a new serum specimen should be submitted in 7-14 days. Test Performed by: [place] [address] Emergency Medical Technician/Driver: Rashaun Yo II, M.D., Ph.D. 64 [facility] 03/20 67 Because ethnic data is not [...] 03/20 Procedures Date Code Description Status 04/21/2018 32799 Holter Monitor Review (24 hr)dr suarez & interp only Completed 04/16/2018 55007 ECG Monitor/Recording W/Visual Superimposition Completed Scanning 04/09/2018 [id number] Bone Mineral Density Test Completed 03/28/2018 42587 EKG Tracing & Interpretation Completed 03/26/2018 32269 Admin Of Inj Completed 03/26/2018 87354 EKG Tracing & Interpretation Completed 02/21/2018 60237 EKG Tracing & Interpretation Completed 09/22/2017 33455 Admin Of Inj Completed 09/07/2017 38506 EKG Tracing & Interpretation Completed 07/28/2017 09543 Mobile Cardiovascular Telemetry Over 24 HR Up To 30 Completed Days 07/19/2017 13148 ECHO Transthoracic, Real-Time 2D With Doppler And Completed Color Flow 07/19/2017 20567 ECHO Transthoracic, Real-Time 2D With Doppler And Completed Color Flow 07/05/2017 04552 EKG Tracing & Interpretation Completed 06/20/2017 41527 ECHO Transthorasic Realtime 2D W Doppler & Color Flow Completed Hosp 06/20/2017 90369 Cath PLMT&NJX L Ventriculog Img S&I Completed 02/24/2017 66971 Admin Of Inj Completed 05/06/2016 36353 Arthroplasty,Total Shoulder Replacement (TSR) Completed 05/06/2016 45596 Arthroplasty,Total Shoulder Replacement (TSR) Completed 02/17/2016 04842 Inject/Drain Joint/Bursa Major W/O US Completed 01/06/2016 03274 Chemotherpy Admin Subcutaneous/Im Non-Hormonal Completed Anti-Neoplastic 08/25/2015 57330 Nerve Conduction 07-08 Studies Completed 06/24/2015 61538 Chemotherpy Admin Subcutaneous/Im Non-Hormonal Completed Anti-Neoplastic 05/21/2015 [id number] Bone Mineral Density Test Completed 03/20/2014 50981 Repair Nonunion/Malunion Humerus Completed 03/20/2014 00602 Repair Nonunion/Malunion Humerus Completed 03/05/2014 69598 Rad Exam; Humerus Completed 02/03/2014 46218 Rad Exam; Humerus Completed 01/08/2014 55567 Rad Exam; Humerus Completed 12/17/2013 70242 closed tx humeral shaft fx w/manipulation w w/o Completed traction Encounters Type Date Location Provider Dx Diagnosis Office Visit 2018 Rheumatology Estuardo Christiansen, 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 I48.3 Typical atrial Of [employer] Cuca Davis flutter I44.7 Left bundle-branch block, unspecified I25.10 Athscl heart disease of [place] coronary artery w/o ang pctrs Office Visit 03/28/2018 3:15p [facility] Donaldo D. I44.7 Left bundle-branch Of [employer] Ryan M.D. 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 block, unspecified I25.10 Athscl heart disease of [place] coronary artery w/o ang pctrs I25.5 Ischemic cardiomyopathy I10 Essential (primary) hypertension Office Visit 10/18/2017 8:45a [facility] Dnoaldo Martell I44.7 Left bundle-branch Of Caty Davis M.D. 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 disease of [place] coronary artery w/o ang pctrs I47.1 Supraventricular tachycardia I44.7 Left bundle-branch block, unspecified I10 Essential (primary) hypertension I25.5 Ischemic cardiomyopathy Z95.1 Presence of aortocoronary bypass graft Office Visit 07/05/2017 9:45a [facility] Donaldo Martell I21.4 Non-St elevation Of Caty Davis M.D. 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 Services [facility] rheu factor mult site w/o org/sys involv D50.9 Iron deficiency anemia, unspecified M81.0 Age-related osteoporosis w/o current pathological fracture E55.9 Vitamin D deficiency, unspecified R53.83 Other fatigue Z79.899 Other long term care social worker (current) drug therapy M25.512 Pain in left shoulder Office Visit 02/24/2017 9:00a Rheumatology Estuardo Christiansen 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 R79.82 Elevated C-reactive protein (CRP) R70.0 Elevated erythrocyte sedimentation rate D64.9 Anemia, unspecified M81.0 Age-related osteoporosis w/o current pathological fracture Z79.899 Other long term care social worker (current) drug therapy Office Visit 07/15/2016 9:00a Rheumatology Estuardo Christiansen 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 right shoulder Office Visit 03/02/2016 Rheumatology Marvin M05.Darshan Ot rheumatoid 10:00a Services Of Caty Negro M.D. arthritis w rheumatoid factor mult site G62.9 Polyneuropathy, unspecified Z79.899 Other half-way (current) drug therapy M81.0 Age-related osteoporosis w/o [...] mult site G62.9 Polyneuropathy, unspecified Z79.899 Other long term care social worker (current) drug therapy Z23 Encounter for immunization Office Visit 10/01/2015 10:40a Rheumatology Marvin 5.89 Oth rheumatoid Services Of Caty Negro M.D. arthritis w rheumatoid factor mult site G62.9 Polyneuropathy, unspecified E10.9 Type 1 diabetes mellitus without complications Z79.899 Other long term care social worker (current) drug therapy Office Visit 07/28/2015 10:40a Rheumatology Marvin 5.89 Ot rheumatoid Services Of Caty Negro M.D. arthritis w rheumatoid factor mult site G62.9 Polyneuropathy, unspecified M81.0 Age-related osteoporosis w/o current pathological fracture Z79.899 Other long term care social worker (current) drug therapy Office Visit 07/21/2015 Joe Hernandez G62.9 Polyneuropathy, 9:00a Neurologic Cuca Godoy unspecified Services Of [facility] G56.02 Carpal tunnel syndrome, left upper limb G56.01 Carpal tunnel syndrome, right upper limb G56.22 Lesion of ulnar nerve, left upper limb Office Visit 05/20/2015 9:00a Rheumatology Marvin M05.89 Oth rheumatoid Services Of Caty Negro M.D. arthritis w rheumatoid factor mult site Z79.899 Other half-way (current) drug therapy R20.8 Other disturbances of [...] - KEILA Fraga at Rheumatology [facility]2018 - LEONEL FragaPM05.79 Rheumatoid arthritis with rheumatoid factor of multiple siteComments:Will get labs today.I will check CT scan If your labs normal and yo do not have inflammation, we will not restart on the MTX.Follow up:8 weeks. Labs [id number] CoughComments:I will need to review CT scanI48.3 Typical atrial flutterComments:Please call Dr. Davis and let him know that you do not have any more Xarelto.M25.511 Pain in right shoulderNew Medication:Diclofenac Sodium 1 % - apply 2 grams on RT shoulder twice dailyComments:We discussed that you may start using the topical antiinflammatory on your shoulder.M81.0 Age-related osteoporosis without current pathological [id number] Other long term care social worker (current) drug therapy
--- OUTSIDE RECORDS SUMMARY | 2018-07-11 15:40 | XMS REPORT | Continuity of Care Document ---
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 Erasto Bhardwaj MD Primary Care Physician Unavailable Payers Date Identification Numbers Payment Provider Subscriber Effective: 2004 Policy Number: [id number] Medicare Tu Hoskins PayID: [id number] [address] [place] [address] Effective: 2004 Policy Number: [facility] Tu Hoskins [id number] PayID: [id number] [address] [place] [address] Problems Active Problems Provider Date Polyneuropathy Jody [...] Annsatnam Ledezmak, 2018 1% RT shoulder twice 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 Tablets Xarelto 1 by mouth every 90tabs I48.3 Donaldo Davis, 03/28/2018 20mg Tablets day M.D. Protonix 1/day [place] DepotErasto, 04/17/2017 40mg Metoprolol Tartrate 1 by mouth twice [place] DepotErasto, 03/09/2017 a day 50mg Tablets Ropinirole HCL 1 at hs [place] DepotErasto, 02/24/2017 2mg Prolia 60 mg sc q6mon 60mg M81.0 Estuardo Christiansen, 02/24/2017 60mg/ml Solution [employer] SOFTWARE VERIFICATION ENGINEER Vitamin D3 Ultra 1 by mouth every 90caps Estuardo Christiansen, 11/29/2016 Strength day [employer] SOFTWARE VERIFICATION ENGINEER 5000Unit Capsules Methotrexate 4 tabs by mouth 60tabs M05.79 Estuardo Christiansen, 08/12/2016 2.5mg every week (on [employer]WARE SOFTWARE VERIFICATION ENGINEER Tablets hold) Z79.899 Folic Acid 1 by mouth every 90tabs Z79.899 Estuardo Christiansen, [employer] SOFTWARE VERIFICATION ENGINEER 07/15/2016 1mg Tablets day in the morning Ambien 1 po qhs prn Unknown 5mg Losartan Potassium Take 1 Tablet By Unknown 50mg Mouth Every Day Tablets Vitamin B12 1 by mouth every Unknown 1000mcg day Tablets ER History Medications Warfarin Sodium 1 tablet mon,thur Unknown 06/27/2017 - 1mg and 1/2 tablet 03/26/2018 Tablets fri,sat,sun as directed [facility] Furosemide Take 1 Tablet By Joao Arshad MD 06/20/2017 - 40mg Mouth Daily 10/17/2017 Tablets Metformin HCL 1 tablet po daily [place], 05/10/2017 - 500mg MD Erasto 08/08/2017 Cipro 1 tab po twice 10tabs R30.0 Estuardo Christiansen, 02/24/2017 - 250mg Tablets daily for 5 days. [facility] 06/09/2017 May stop after 3 days if symptoms resolved. Pyridium 1 as needed every 6 1tabs R30.0 Andrewofia Kuldip, 02/24/2017 - 200mg hours [employer] SOFTWARE [employer]IFICATION ENGINEER 02/24/2017 Tablets Bactrim DS 1 tab po bid 6units R30.0 Estuardo Christiansen, 02/24/2017 - 800-160mg [employer] SOFTWARE VERIFICATION ENGINEER 02/24/2017 Macrodantin 1 po qid 10caps R30.0 Estuardo Christiansen, 02/24/2017 - 25mg [employer] SOFTWARE VERIFICATION ENGINEER 02/24/2017 Capsules Iron 1 by mouth every 90tabs Estuardo Christiansen, 11/29/2016 - 325(65Fe) mg day ( last taken [facility] 08/08/2017 Tablets 07/04/17) Vitamin D3 Ultra 1 by mouth every 90caps Estuardo Christiansen, 08/15/2016 - Strength day [facility] 11/17/2016 5000Unit Capsules Methotrexate 6 tbs by mouth 72tabs M05.79 Estuardo Christiansen, 07/15/2016 - 2.5mg every week [facility] 08/12/2016 Tablets Z79.899 Calcium 500 +D 1 by mouth twice 180tabs M81.0 Estuardo Christiansen, 07/15/2016 - a day [facility] 10/17/2017 [id number] Tablets Oxycodone HCL take 1 - 2 every 60caps Carla Workman, 05/07/2016 - 5mg 4 - 6 hours as 05/28/2016 Capsules needed for pain. D3 Super Strength take one 90caps Marvin eNgro, 03/02/2016 - capsule/tablet M.D. 11/17/2016 2000Unit Capsules daily by mouth Celebrex 1 tab by mouth 60caps M19.011 Adriel Junior 02/17/2016 - 100mg Capsules twice a day as MD Krystal 03/02/2016 needed Remicade Marvin Negro, 01/06/2016 - 100mg Solution M.D. 02/16/2016 Rec Ayana Foreman iv infusion: 2 QS M05.79 Estuardo Ledezmak, 07/24/2015 - 50mg/4ML mg/kg repeat at [facility] 07/15/2016 Solution weeks 0 and 4 [...] capsule by 14caps Marvin Negro, 04/27/2015 - 26554Taag mouth once weekly M.DSailaja 01/06/2016 Capsules Tramadol [...] Unknown - 50mg 06/20/2017 Creon Unknown - [id number] 04/16/2014 Aspirin Ec Lo-Dose Unknown - 81mg [...] Code Status Date Vaccine Reaction Lot # 60105 Given 12/19/2017 Fluzone High Dose no immediate reaction [id number] 04102 Given 01/06/2016 Influ Virus Vaccine, [id number] Quadrivalent, Split Virus, [place] [id number] Given 10/03/2014 Pneumococcal Conjugate Vaccine 13 Valent For Intramuscular Use 82839 Given Unknown Pneumonia Vaccine Vital Signs Date [...] Test Result H/L Range Note Order 04/16/2018 [facility] In-House Holter Monitor <pending> CBC Auto Diff 12/20/2017 [facility] White Blood 6.7 10^3/uL N 3.5-10.[address] [place] [address] [phone] Red Blood Count 3.86 10^6/uL Low 4.00-5.40 [...] Cells % 0.1 Comp Metabolic Panel 12/20/2017 [facility] Sodium 132 mmol/L Low 135-[address] [place] [address] [phone] Potassium 4.4 mmol/L N 3.5-5.0 Chloride 100 [...] Egfr 70.2 >60 1 Laboratory test 12/20/2017 [facility] C Reactive 20.74 mg/L High <8.[address] Protein [place], [place] [address] [phone] Erythrocyte Sed Rate 38 mm/Hr N 0-40 CBC Auto Diff 07/01/2017 [facility] White Blood 8.4 10^3/uL N 3.5-10.[address] [place] [address] [phone] Red Blood Count 3.61 10^6/uL Low 4.0-5.4 [...] Cells % 0 Comp Metabolic Panel 07/01/2017 [facility] Sodium 134 mmol/L Low 139-[address] [place] [address] [phone] Potassium 3.9 mmol/L N 3.5-5.0 Chloride 97 [...] Egfr 78.5 >60 3 Laboratory test 07/01/2017 [facility] Erythrocyte Sed 45 mm/Hr High 0-40 finding [address] [place] [address] [phone] C Reactive Protein 64.47 mg/L High < 5.00 4 Iron & Iron Binding 07/01/2017 [facility] Iron 43 g/dL Low 50-[address] [place] [address] [phone] Unsaturated Iron Binding 243 g/dL Total Iron Binding Capacity 286 g/dL N 250-450 Transferrin 204 mg/dL N 203-362 % Iron Saturation 15 % N 15-55 Laboratory test 07/01/2017 [facility] Ferritin 511.1 ng/mL High 11-[address] [place] [address] [phone] Vitamin D Total 25(Oh) 23.7 ng/mL N 20-50 Laboratory test 06/20/2017 [facility] Troponin-I (TnI) 11.64 High <0.[address] ng/[place] [address] [phone] Lipid Profile 06/20/2017 [facility] Triglycerides 62 mg/dL 6 (Trig/Chol/HDL) [address] [place] [address] [phone] Cholesterol 155 mg/dL 7 HDL Cholesterol 64.8 mg/dL 8 LDL Cholesterol 78 mg/dL 9 CBC Auto Diff 06/09/2017 [facility] White Blood 7.6 10^3/uL N 3.5-10.[address] [place] [address] [phone] Red Blood Count 3.49 10^6/uL Low 4.0-5.4 [...] Cells % 0 Comp Metabolic Panel 06/09/2017 [facility] Sodium 134 mmol/L Low 139-[address] [place] [address] [phone] Potassium 4.6 mmol/L N 3.5-5.0 Chloride 102 [...] Egfr 83.0 >60 10 Laboratory test 06/09/2017 [facility] C Reactive 4.00 mg/L N < 5.00 [address] [place] [address] [phone] Erythrocyte Sed Rate 41 mm/Hr High 0-40 12 Laboratory test 06/09/2017 [facility] Vitamin D 38.4 ng/mL N 20-[address] Total 25(Oh) [place] [address] [phone] Laboratory test 06/09/2017 [facility] TSH (Thyroid 0.56 N 0.34 -5.[address] Stim Horm) mcIU/[place] [address] [phone] Urinalysis 02/24/2017 [facility] Urine Color Natalia Profile [address] [place] [address] [phone] Urine Appearance Turbid Urine Specific [place] 1.016 N 1.010-1.030 Urine pH 6.0 N [...] Present Abnormal Absent Urine Culture And 02/24/2017 [facility] Urine Culture SEE RESULT [address] [place] [address] [phone] CBC Auto Diff 02/17/2017 [facility] White Blood 5.2 10^3/uL N 3.5-[address] Count 0.8 [place] [address] [phone] Red Blood Count 3.46 10^6/uL Low 4.0-5.4 [...] Cells % 0.3 Comp Metabolic Panel 02/17/2017 [facility] Sodium 130 mmol/L Low 133-[address] [place] [address] [phone] Potassium 4.2 mmol/L N 3.5-5.0 Chloride 99 [...] Egfr 60.4 >60 14 Laboratory test 02/17/2017 [facility] Erythrocyte Sed 51 mm/Hr High 0-[address] [place] [address] [phone] C Reactive Protein 35.44 mg/L High < 5.00 16 Iron & Iron Binding 02/17/2017 [facility] Iron 19 g/dL Low 50-212 [address] [place] [address] [phone] Unsaturated Iron Binding 337 g/dL Total Iron Binding Capacity 356 g/dL N 250-450 % Iron Saturation 5 % Low 15-55 Laboratory test 02/17/2017 [facility] Ferritin 40.2 ng/mL N 11 -307 17 finding [address] [place] [address] [phone] Vitamin D Total 25(Oh) 35.8 ng/mL N 20-50 18 Laboratory test 11/24/2016 [facility] Ferritin 16.7 ng/mL N 11 -307 finding [address] [place] [address] [phone] Iron & Iron Binding 11/24/2016 [facility] Iron 36 g/dL Low 50-212 [address] [place], [place] [address] [phone] Unsaturated Iron Binding 353 g/dL N Total Iron Binding Capacity 389 g/dL N 250-450 % Iron Saturation 9 % Low 15-55 Laboratory test 11/24/2016 [facility] C Reactive 8.27 mg/L High < 5.[address] [facility] [place] [address] [phone] Erythrocyte Sed Rate 52 mm/Hr High 0-40 Comp Metabolic Panel 11/24/2016 [facility] Sodium 133 mmol/L N 133-145 [address] [place] [address] [phone] Potassium 4.5 mmol/L N 3.5-5.0 Chloride 102 [...] N >60 20 CBC Auto Diff 11/24/2016 [facility] White Blood 5.9 10^3/uL N 3.5-10.[address] [place] [address] [phone] Red Blood Count 3.16 10^6/uL Low 4.0-5.4 [...] % 0 N CBC Auto Diff 08/12/2016 [facility] White Blood 5.0 10^3/uL N 3.5-10.[address] [place] [address] [phone] Red Blood Count 3.25 10^6/uL Low 4.0-5.4 [...] % 0.1 N Comp Metabolic Panel 08/12/2016 [facility] Sodium 130 mmol/L Low 133-[address] [place] [address] [phone] Potassium 4.5 mmol/L N 3.5-5.0 Chloride 98 [...] 65.0 N >60 21 Laboratory test 08/12/2016 [facility] C Reactive 10.51 mg/L High < 5.[address] [place] [address] [phone] Erythrocyte Sed Rate 70 mm/Hr High 0-40 Vitamin D Total 25(Oh) 19.9 ng/mL Low 30-50 Comp Metabolic Panel 06/29/2016 [facility] Sodium 128 mmol/L Low 133-[address] [place] [address] [phone] Chloride 99 mmol/L Low 101-111 Co2 Carbon [...] 18 U/L N 13-39 Laboratory test 06/29/2016 [facility] C Reactive 11.78 mg/L High < 5.[address] [place] [address] [phone] CBC Auto Diff 06/29/2016 [facility] White Blood 7.5 N 3.5- 10.[address] Count 10^3/[place] [address] [phone] Red Blood Count 3.62 10^6/uL Low 4.0-5.4 [...] Cells % 0 N Laboratory test 06/29/2016 [facility] Erythrocyte Sed 73 mm/Hr High 0-[address] [place] [address] [phone] Basic Metabolic 04/28/2016 [facility] Sodium 129 Low 133-[address] mmol/[place] [address] [phone] Potassium 4.8 mmol/L N 3.5-5.0 Chloride 100 [...] N >60 25 CBC No Diff 04/28/2016 [facility] White Blood 7.8 10^3/uL N 3.5-10.[address] [place] [address] [phone] Red Blood Count 3.54 10^6/uL Low 4.0-5.4 Hemoglobin 10.7 g/dL Low 12.0-16.0 Hematocrit 32 % Low 35-47 Mean Corpuscular Volume 91 fL N 80-97 Mean Corpuscular Hemoglobin 30 pg N 27-31 Mean Corpuscular HGB Conc 33 g/dL N 31-36 Red Cell Distribution Width 13 % N 10.5-15 Platelet Count 263 10^3/uL N 150-450 Mean Platelet Volume 8 um3 N 7.4-10.4 Inr/Protime 04/28/2016 [facility] Inr 1.15 High 0.89-1.[address] [place] [address] [phone] Laboratory test 04/28/2016 [facility] Partial 30.1 seconds N 26.0-36.[address] [place] [address] Time PTT [phone] Type & Screen 04/28/2016 [facility] Patient O Positive N [address] [place] [address] [phone] Antibody Screen NEGATIVE N CBC Auto Diff 03/29/2016 [facility] White Blood 8.2 10^3/uL N 3.5-10.[address] Count [place], [place] [address] [phone] Red Blood Count 3.68 10^6/uL Low 4.0-5.4 [...] Cells % 0.1 N Basic Metabolic 03/29/2016 [facility] Sodium 132 mmol/L Low 133-[address] [place] [address] [phone] Potassium 4.5 mmol/L N 3.5-5.0 Chloride 101 mmol/L N 101-111 Co2 Carbon Dioxide 27 mmol/L N 22-32 Anion Gap 4 mmol/L N 2-11 Glucose 94 mg/dL N 70-100 Blood Urea Nitrogen 22 mg/dL N 6-24 Creatinine 1.03 mg/dL High 0.51-0.95 BUN/Creatinine Ratio 21.4 High 8-20 Calcium 9.3 mg/dL N 8.6-10.3 Egfr Non- 51.8 N >60 Egfr 66.6 N >60 26 Laboratory 03/29/2016 [facility] Partial Thrombo 27.0 N 26.0- 36.3 test finding [address] [place] [address] [phone] Laboratory 03/08/2016 [facility] C Reactive < 1.00 N < 5.00 27 test finding [address] Protein mg/[place] [address] [phone] Laboratory 03/08/2016 [facility] Erythrocyte Sed 39 mm/Hr N 0- 40 test finding [address] [place] [address] [phone] Comp Metabolic 03/08/2016 [facility] Sodium 129 mmol/L Low 133 -[address] [place] [address] [phone] Chloride 103 mmol/L N 101-111 Co2 Carbon [...] N 13-39 30 Comp Metabolic Panel 02/09/2016 [facility] Sodium 132 mmol/L Low 133-[address] [place] [address] [phone] Potassium 4.5 mmol/L N 3.5-5.0 Chloride 102 [...] 76.9 N >60 31 Laboratory test 02/09/2016 [facility] C Reactive < 1.00 N < 5.00 [address] Protein mg/[place] [address] [phone] CBC Auto Diff 02/09/2016 [facility] White Blood 4.7 N 3.5- 10.[address] Count 10^3/uL [place], [place] [address] [phone] Red Blood Count 3.60 10^6/uL Low 4.0-5.4 [...] Cells % 0 N Laboratory test 02/09/2016 [facility] Erythrocyte Sed 39 mm/Hr N 0-[address] [place] [address] [phone] Laboratory test 01/26/2016 [facility] C Reactive 7.52 mg/L High < 5.00 [address] [place] [address] [phone] Erythrocyte Sed Rate 61 mm/Hr High 0-40 Comp Metabolic Panel 01/26/2016 [facility] Sodium 131 mmol/L Low 133-[address] [place] [address] [phone] Potassium 4.8 mmol/L N 3.5-5.0 Chloride 103 [...] N >60 34 CBC Auto Diff 01/26/2016 [facility] White Blood 5.9 10^3/uL N 3.5-10.[address] [place] [address] [phone] Red Blood Count 3.59 10^6/uL Low 4.0-5.4 [...] % 0.2 N Comp Metabolic Panel 01/06/2016 [facility] Sodium 131 mmol/L Low 133-[address] [place] [address] [phone] Potassium 4.8 mmol/L N 3.5-5.0 Chloride 98 [...] 49.6 N >60 35 CBC Auto 01/06/2016 [facility] White Blood 11.4 10^3/uL High 3.5-10.[address] [place] [address] [phone] Red Blood Count 3.87 10^6/uL Low 4.0-5.4 [...] Cells % 0 N Laboratory test 01/06/2016 [facility] C Reactive 11.94 mg/L High < 5.00 [address] [place] [address] [phone] Erythrocyte Sed Rate 53 mm/Hr High 0-40 37 CBC Auto Diff 09/17/2015 [facility] White Blood 9.4 10^3/uL N 3.5-10.[address] [place] [address] [phone] Red Blood Count 3.68 10^6/uL Low 4.0-5.4 [...] Cells % 0 N Laboratory test 09/17/2015 [facility] C Reactive 3.01 mg/L N < 5.00 [address] [place] [address] [phone] Comp Metabolic 09/17/2015 [facility] Sodium 130 Low 133-[address] mmol/[place] [address] [phone] Potassium 4.0 mmol/L N 3.5-5.0 Chloride 100 [...] 71.4 N >60 39 Laboratory test 09/17/2015 [facility] Erythrocyte Sed 50 mm/Hr High 0-[address] [place] [address] [phone] Laboratory test 07/23/2015 [facility] Erythrocyte Sed 33 mm/Hr N 0-[address] [place] [address] [phone] CBC Auto Diff 07/23/2015 [facility] White Blood 6.2 N 3.5- 10.[address] Count 10^3/[place] [address] [phone] Red Blood Count 3.40 10^6/uL Low 4.0-5.4 [...] Cells % 0 N Laboratory test 07/23/2015 [facility] C Reactive 3.50 mg/L N < 5.00 [address] [place] [address] [phone] Comp Metabolic 07/23/2015 [facility] Sodium 132 Low 133-[address] mmol/[place] [address] [phone] Potassium 4.9 mmol/L N 3.5-5.0 Chloride 106 [...] 68.2 N >60 41 Laboratory test 07/23/2015 [facility] Cryoglobulin Negative % ppt N Negative [address] [place] [address] [phone] Vitamin B12 224 pg/mL N 180-914 43 Free T4 (Free Thyroxine) 1.15 ng/dL High 0.61-1.12 44 TSH (Thyroid Stim Horm) 0.62 ?IU/mL N 0.34-5.60 45 Protein 07/23/2015 [facility] Total 7.2 g/dL N 6.3 - Electrophoresis [address] Protein(Pep) 7.9 [place] [address] [phone] Albumin 3.2 g/dL Abnormal 3.4-4.7 Alpha-1 Globulin 0.3 g/dL N 0.1-0.3 Alpha-2 Globulin 1.0 g/dL N 0.6-1.0 Beta Globulin 1.1 g/dL N 0.7-1.2 Gamma Globulin 1.7 g/dL Abnormal 0.6-1.6 Albumin/Globulin Ratio 0.80 N Impression See Comment N 46 Laboratory test finding 07/23/2015 [facility] Anti Ssa/Ro <0.2 U N [address] [place] [address] [phone] Anti SSB LA <0.2 U N 48 Laboratory test 06/25/2015 [facility] Erythrocyte Sed 61 mm/Hr High 0-[address] [place] [address] [phone] CBC Auto Diff 06/25/2015 [facility] White Blood 7.7 N 3.5- 10.[address] Count 10^3/[place] [address] [phone] Red Blood Count 3.00 10^6/uL Low 4.0-5.4 [...] Cells % 0 N Laboratory test 06/25/2015 [facility] C Reactive 17.95 mg/L High < 5.00 [address] [place] [address] [phone] Comp Metabolic 06/25/2015 [facility] Sodium 130 mmol/L Low 133 -145 Panel [address] [place] [address] [phone] Potassium 4.3 mmol/L N 3.5-5.0 Chloride 101 [...] N >60 50 Comp Metabolic Panel 05/21/2015 [facility] Sodium 131 mmol/L Low 133-145 [address] [place] [address] [phone] Potassium 4.6 mmol/L N 3.5-5.0 Chloride 99 [...] N >60 51 CBC Auto Diff 05/21/2015 [facility] White Blood 9.0 10^3/uL N 3.5-10.[address] Count [place] [address] [phone] Red Blood Count 3.55 10^6/uL Low 4.0-5.4 [...] Cells % 0 N Laboratory test 05/21/2015 [facility] C Reactive 64.88 mg/L High < 5.00 [address] [place] [address] [phone] Erythrocyte Sed Rate 89 mm/Hr High 0-40 53 Quantiferon Gold 05/21/2015 [facility] M tuberculosis Negative N Negative TB [address] [place] [address] [phone] Tuberculosis Antigen Value 0.00 IU/mL N 54 Laboratory test 04/22/2015 [facility] Sepideh (Antinuclear Negative N Negative finding [address] Antibodies) [place] [address] [phone] Angiotensin Converting Enzyme 9 U/L N 8 - 53 55 C Reactive Protein 55.48 mg/L High < 5.00 56 Cyclic Citrullinated Pep Igg >250.0 U Abnormal 57 Rheumatoid Factor <15 IU/mL N <15 58 Uric Acid 6.5 mg/dL N 2.3-6.6 59 Vitamin B12 347 pg/mL N 180-914 60 Vitamin D 1,25 04/22/2015 [facility] Vitamin D 14.4 ng/mL Low 30-50 61 And Vitamin D,[address] Total 25(Oh) [place] [address] [phone] Vitamin D, 1,25 Dihydroxy 42 pg/mL N 18-78 62 Laboratory test 04/22/2015 [facility] Lyme Disease Negative N Negative [address] [place] [address] [phone] CBC No Diff 03/17/2014 [facility] White Blood 5.8 10^3/uL N 4.8-10.[address] [place] [address] [phone] Red Blood Count 3.89 10^6/uL Low 4.0-5.4 Hemoglobin 11.2 g/dL Low 12.0-16.0 Hematocrit 35 % N 35-47 Mean Corpuscular Volume 90 fL N 80-97 Mean Corpuscular Hemoglobin 29 pg N 27-31 Mean Corpuscular HGB Conc 32 g/dL N 31-36 Red Cell Distribution Width 15 % N 10.5-15 Platelet Count 262 10^3/uL N 150-450 Mean Platelet Volume 9 um3 N 7.4-10.4 Basic Metabolic 03/17/2014 [facility] Sodium 131 mmol/L Low 133-145 Panel [address] [place] [address] [phone] Potassium 4.1 mmol/L N 3.5-5.0 Chloride 100 mmol/L Low 101-111 Co2 Carbon Dioxide 28 mmol/L N 22-32 Anion Gap 3 mmol/L N 2-11 Glucose 105 mg/dL High 70-100 Blood Urea Nitrogen 25 mg/dL High 6-24 Creatinine 1.01 mg/dL High 0.51-0.95 BUN/Creatinine Ratio 24.8 High 8-20 Calcium 10.0 mg/dL N 8.6-10.3 Egfr Non- 53.3 N >60 Egfr 68.5 N >60 65 Inr/Protime 03/17/2014 [facility] Inr 1.01 N 0.85-1.06 [address] [place] [address] [phone] Laboratory test 03/17/2014 [facility] Activated 28.5 seconds N 24.0-36.1 66 finding [address] [place] [address] Thrombo Time [phone] Type & Screen 03/17/2014 [facility] Patient Blood O Positive N [address] [place] [address] [phone] Antibody Screen NEGATIVE N 1 Because ethnic [...] inflammation: >10.00 5 Result TnIDx:11.64 Called to [id number] at: 08:19:45 by:[id number] Read back by:[id number] Desirable: <150 Borderline High: 150-199 High: [...] [address]: Estuardo Christiansen NP Acct: [id number] Unit: [id number] AGE: 81 Location: LAB Re02/24/17 SEX: F Status: REG REF SPEC: [id number] ELIAS: 02/24/[address]: Estuardo Christiansen NP REQ: [id number] RECD: 02/24/17 STATUS: COMP _ SOURCE: URINE SPDESC: ORDERED: Urine Culture Procedure Result Reported Site Urine Culture Final 02/26/17- 0853 ML Organism 1 ESCHERICHIA COLI [place] Count >100,000 (Many) CFU/ML 1. ESCHERICHIA COLI [...] antibiotic reporting. * ML - MAIN LAB ([facility]) . END OF REPORT * ML=Testing performed at Main Lab DEPARTMENT OF PATHOLOGY, [address] [place] [address] Mode Wilburn M.D. Director [facility] # [id number] 14 Because ethnic data is not always [...] additional report will follow. Test Performed by: [place] [address] Support Specialist: Rashaun Yo II, M.D., Ph.D. 43 Normal Range 180 to 914 Indeterminate Range 145 to 180 Deficient Range <145 44 Copy Result to: ERASTO BHARDWAJ ([id number]) 45 Copy Result to: ERASTO BHARDWAJ ([id number]) 46 RESULT: Polyclonal hypergammaglobulinemia Test Performed by: [place] [address] Support Specialist: Rashaun Yo II, M.D., Ph.D. 47 REFERENCE VALUE <1.0 (Negative) Test Performed by: [place] [address] Support Specialist: Rashaun Yo II, M.D., Ph.D. 48 REFERENCE VALUE <1.0 (Negative) Test Performed by: [place] [address] Support Specialist: Rashaun Yo II, M.D., Ph.D. 49 Acute [...] when interpreting QuantiFERON-TB results. Test Performed by: [place] [address] Support Specialist: Rashaun Yo II, M.D., Ph.D. 55 Test Performed by: [place] [address] Support Specialist: Rashaun Yo II, M.D., Ph.D. 56 Acute inflammation: >10.00 57 Interpretation: Strong Positive (>=60.0) REFERENCE VALUE <20.0 (Negative) Test Performed by: [place] [address] Support Specialist: Rashaun Yo II, M.D., Ph.D. 58 Test Performed by: [place] [address] Support Specialist: Rashaun Yo II, M.D., Ph.D. 59 this week 60 Normal Range 180 to 914 Indeterminate Range 145 to 180 Deficient Range <145 61 this week 62 Test Performed by: [place] [address] Support Specialist: Rashaun Yo II, M.D., Ph.D. 63 Serologic response to B. burgdorferi infection is not detected, but cannot rule out early infection during which low or undetectable antibody levels to B. burgdorferi may be present. If clinically indicated, a new serum specimen should be submitted in 7-14 days. Test Performed by: [place] [address] Support Specialist: Rashaun Yo II, M.D., Ph.D. [facility] 03/20 67 Because ethnic data is not [...] 03/20 Procedures Date Code Description Status 04/21/2018 37528 Holter Monitor Review (24 hr)dr suarez & interp only Completed 04/16/2018 16790 ECG Monitor/Recording W/Visual Superimposition Completed Scanning 04/09/2018 [id number] Bone Mineral Density Test Completed 03/28/2018 18920 EKG Tracing & Interpretation Completed 03/26/2018 68959 Admin Of Inj Completed 03/26/2018 67304 EKG Tracing & Interpretation Completed 02/21/2018 06660 EKG Tracing & Interpretation Completed 09/22/2017 61633 Admin Of Inj Completed 09/07/2017 04343 EKG Tracing & Interpretation Completed 07/28/2017 07825 Mobile Cardiovascular Telemetry Over 24 HR Up To 30 Completed Days 07/19/2017 30235 ECHO Transthoracic, Real-Time 2D With Doppler And Completed Color Flow 07/19/2017 37354 ECHO Transthoracic, Real-Time 2D With Doppler And Completed Color Flow 07/05/2017 82836 EKG Tracing & Interpretation Completed 06/20/2017 28254 ECHO Transthorasic Realtime 2D W Doppler & Color Flow Completed Hosp 06/20/2017 97223 Cath PLMT&NJX L Ventriculog Img S&I Completed 02/24/2017 10114 Admin Of Inj Completed 05/06/2016 27300 Arthroplasty,Total Shoulder Replacement (TSR) Completed 05/06/2016 63675 Arthroplasty,Total Shoulder Replacement (TSR) Completed 02/17/2016 77979 Inject/Drain Joint/Bursa Major W/O US Completed 01/06/2016 04409 Chemotherpy Admin Subcutaneous/Im Non-Hormonal Completed Anti-Neoplastic 08/25/2015 15861 Nerve Conduction 07-08 Studies Completed 06/24/2015 97862 Chemotherpy Admin Subcutaneous/Im Non-Hormonal Completed Anti-Neoplastic 05/21/2015 [id number] Bone Mineral Density Test Completed 03/20/2014 42862 Repair Nonunion/Malunion Humerus Completed 03/20/2014 00353 Repair Nonunion/Malunion Humerus Completed 03/05/2014 29708 Rad Exam; Humerus Completed 02/03/2014 28751 Rad Exam; Humerus Completed 01/08/2014 10950 Rad Exam; Humerus Completed 12/17/2013 18309 closed tx humeral shaft fx w/manipulation w w/o Completed traction Encounters Type Date Location Provider Dx Diagnosis Office Visit 2018 Rheumatology Estuardo Christiansen, 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 I44.7 Left bundle-branch Of [employer] Ryan M.D. 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 disease of samish coronary artery w/o ang pctrs I47.1 Supraventricular tachycardia I44.7 Left bundle-branch block, unspecified I10 Essential (primary) hypertension I25.5 Ischemic cardiomyopathy Z95.1 Presence of aortocoronary bypass graft Office Visit 07/05/2017 9:45a [facility] Donaldo Martell I21.4 Non-St elevation Of Caty Davis M.D. 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 Services Of [facility] rheu factor mult site w/o org/sys involv D50.9 Iron deficiency anemia, unspecified M81.0 Age-related osteoporosis w/o current pathological fracture E55.9 Vitamin D deficiency, unspecified R53.83 Other fatigue Z79.899 Other pcts (current) drug therapy M25.512 Pain in left shoulder Office Visit 02/24/2017 9:00a Rheumatology Estuardo Christiansen M05.79 Rheu arthritis Services Of [facility] rheu factor mult site w/o org/sys involv R79.82 Elevated C-reactive protein (CRP) D50.9 Iron deficiency anemia, unspecified M81.0 Age-related osteoporosis w/o current pathological fracture E55.9 Vitamin D deficiency, unspecified R05 Cough R30.0 Dysuria Z79.899 Other care home (current) drug therapy Z92.29 Personal history of other drug therapy Office Visit 12/06/2016 1:30p Orthopedic Carla Workman, M05.79 Rheu arthritis w Services Of MD lora factor marcela C.M.A. 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 R79.82 Elevated C-reactive protein (CRP) R70.0 Elevated erythrocyte sedimentation rate D64.9 Anemia, unspecified M81.0 Age-related osteoporosis w/o current pathological fracture Z79.899 Other pcts (current) drug therapy Office Visit 07/15/2016 9:00a Rheumatology Estuardo Christiansen M05.79 Rheu arthritis Services Of [facility] rheu factor mult 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 right shoulder Office Visit 03/02/2016 Rheumatology Marvin M05.Darshan Ot rheumatoid 10:00a Services Of Caty Negro M.D. arthritis w rheumatoid factor mult site G62.9 Polyneuropathy, unspecified Z79.899 Other care home (current) drug therapy M81.0 Age-related osteoporosis w/o [...] mult site G62.9 Polyneuropathy, unspecified Z79.899 Other pcts (current) drug therapy Z23 Encounter for immunization Office Visit 10/01/2015 10:40a Rheumatology Marvin 5.89 Oth rheumatoid Services Of Caty Negro M.D. arthritis w rheumatoid factor mult site G62.9 Polyneuropathy, unspecified E10.9 Type 1 diabetes mellitus without complications Z79.899 Other pcts (current) drug therapy Office Visit 07/28/2015 10:40a Rheumatology Marvin 5.89 Ot rheumatoid Services Of Caty Negro M.D. 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 arthritis w rheumatoid factor mult site Z79.899 Other care home (current) drug therapy R20.8 Other disturbances of [...] - KEILA Fraga at Rheumatology Services Of [facility]2018 - LEONEL FragaPM05.79 Rheumatoid arthritis with rheumatoid factor of multiple siteComments:Will get labs today.I will check CT scan If your labs normal and yo do not have inflammation, we will not restart on the MTX.Follow up:8 weeks. Labs [id number] CoughComments:I will need to review CT scanI48.3 Typical atrial flutterComments:Please call Dr. Davis and let him know that you do not have any more Xarelto.M25.511 Pain in right shoulderNew Medication:Diclofenac Sodium 1 % - apply 2 grams on RT shoulder twice dailyComments:We discussed that you may start using the topical antiinflammatory on your shoulder.M81.0 Age-related osteoporosis without current pathological shntttF91.899 Other pcts (current) drug therapy
--- OUTSIDE RECORDS SUMMARY | 2018-07-11 15:41 | XMS REPORT | Continuity of Care Document ---
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 Designer Unavailable Erasto Bhardwaj MD Primary Care Physician Unavailable Payers Date Identification Numbers Payment Provider Subscriber Effective: 2004 Policy Number: [id number] Medicare Tu Hoskins PayID: [id number] [address] [place] [address] Effective: 2004 Policy Number: [facility] Tu Hoskins [id number] PayID: [id number] [address] [place] [address] Problems Active Problems Provider Date Polyneuropathy Jody [...] Annsatnam Ledezmak, 2018 1% RT shoulder twice [employer]CEIVING [employer]IST Gel daily Amiodarone HCL 1 tab a day 60tabs I48.3 Donaldo Davis, 03/28/2018 200mg M.D. Tablets Xarelto 1 by mouth every 90tabs I48.3 Donaldo Davis, 03/28/2018 20mg Tablets day M.D. Protonix 1/day PloverErasto, 04/17/2017 40mg Metoprolol Tartrate 1 by mouth twice PloverErasto, 03/09/2017 a day 50mg Tablets Ropinirole HCL 1 at hs PloverErasto, 02/24/2017 2mg Prolia 60 mg sc q6mon 60mg M81.0 Estuardo Christiansen, 02/24/2017 60mg/ml Solution [employer]CEIVING [employer]IST Vitamin D3 Ultra 1 by mouth every 90caps Estuardo Christiansen, 11/29/2016 Strength day [employer] RECEIVING SPECIALIST 5000Unit Capsules Methotrexate 4 tabs by mouth 60tabs M05.79 Estuardo Christiansen, 08/12/2016 2.5mg every week (on [employer]PING [employer] RECEIVING SPECIALIST Tablets hold) Z79.899 Folic Acid 1 by mouth every 90tabs Z79.899 Estuardo Christiansen, [employer] RECEIVING SPECIALIST 07/15/2016 1mg Tablets day in the morning Ambien 1 po qhs prn Unknown 5mg Losartan Potassium Take 1 Tablet By Unknown 50mg Mouth Every Day Tablets Vitamin B12 1 by mouth every Unknown 1000mcg day Tablets ER History Medications Warfarin Sodium 1 tablet mon,thur Unknown 06/27/2017 - 1mg and 1/2 tablet 03/26/2018 Tablets fri,sat,sun as directed [facility] Furosemide Take 1 Tablet By Joao Arshad MD 06/20/2017 - 40mg Mouth Daily 10/17/2017 Tablets Metformin HCL 1 tablet po daily Plover, 05/10/2017 - 500mg MD Erasto 08/08/2017 Cipro 1 tab po twice 10tabs R30.0 Estuardo Christiansen, 02/24/2017 - 250mg Tablets daily for 5 days. [facility] 06/09/2017 May stop after 3 days if symptoms resolved. Pyridium 1 as needed every 6 1tabs R30.0 Andrewofia Kuldip, 02/24/2017 - 200mg hours [employer] RECEIVING SPECIALIST 02/24/2017 Tablets Bactrim DS 1 tab po bid 6units R30.0 Estuardo Christiansen, 02/24/2017 - 800-160mg [employer] RECEIVING SPECIALIST 02/24/2017 Macrodantin 1 po qid 10caps R30.0 Estuardo Christiansen, 02/24/2017 - 25mg [employer] RECEIVING SPECIALIST 02/24/2017 Capsules Iron 1 by mouth every 90tabs Estuardo Christiansen, 11/29/2016 - 325(65Fe) mg day ( last taken [facility] 08/08/2017 Tablets 07/04/17) Vitamin D3 Ultra 1 by mouth every 90caps Estuardo Christiansen, 08/15/2016 - Strength day [facility] 11/17/2016 5000Unit Capsules Methotrexate 6 tbs by mouth 72tabs M05.79 Estuardo Christiansen, 07/15/2016 - 2.5mg every week [facility] 08/12/2016 Tablets Z79.899 Calcium 500 +D 1 by mouth twice 180tabs M81.0 Estuardo Christiansen, 07/15/2016 - a day [facility] 10/17/2017 [id number] Tablets Oxycodone HCL take 1 - 2 every 60caps Carla oWrkman, 05/07/2016 - 5mg 4 - 6 hours [...] Ledezmak, 07/24/2015 - 50mg/4ML mg/kg repeat at [facility] 07/15/2016 Solution weeks 0 and [...] capsule by 14caps Marvin Negro, 04/27/2015 - [id number] mouth once weekly M.DSailaja 01/06/2016 Capsules Tramadol [...] Unknown - 50mg 06/20/2017 Creon Unknown - [id number] 04/16/2014 Aspirin Ec Lo-Dose Unknown - 81mg [...] Code Status Date Vaccine Reaction Lot # [id number] Given 12/19/2017 Fluzone High Dose no immediate reaction [id number] Given 01/06/2016 Influ Virus Vaccine, [id number] Quadrivalent, Split [place], [place] [id number] Given 10/03/2014 Pneumococcal Conjugate Vaccine 13 Valent For Intramuscular Use 33922 Given Unknown Pneumonia Vaccine Vital Signs Date [...] Test Result H/L Range Note Order 04/16/2018 [facility] In-House Holter Monitor <pending> CBC Auto Diff 12/20/2017 [facility] White Blood 6.7 10^3/uL N 3.5-10.[address] [place] [address] [phone] Red Blood Count 3.86 10^6/uL Low 4.00-5.40 [...] Cells % 0.1 Comp Metabolic Panel 12/20/2017 [facility] Sodium 132 mmol/L Low 135-[address] [place] [address] [phone] Potassium 4.4 mmol/L N 3.5-5.0 Chloride 100 [...] Egfr 70.2 >60 1 Laboratory test 12/20/2017 [facility] C Reactive 20.74 mg/L High <8.[address] Protein [place], [place] [phone] Erythrocyte Sed Rate 38 mm/Hr N 0-40 CBC Auto Diff 07/01/2017 [facility] White Blood 8.4 10^3/uL N 3.5-10.[address] [place] [address] [phone] Red Blood Count 3.61 10^6/uL Low 4.0-5.4 [...] Cells % 0 Comp Metabolic Panel 07/01/2017 [facility] Sodium 134 mmol/L Low 139-[address] [place] [address] [phone] Potassium 3.9 mmol/L N 3.5-5.0 Chloride 97 [...] Egfr 78.5 >60 3 Laboratory test 07/01/2017 [facility] Erythrocyte Sed 45 mm/Hr High 0-40 finding [address] [place] [address] [phone] C Reactive Protein 64.47 mg/L High < 5.00 4 Iron & Iron Binding 07/01/2017 [facility] Iron 43 g/dL Low 50-[address] [place] [address] [phone] Unsaturated Iron Binding 243 g/dL Total Iron Binding Capacity 286 g/dL N 250-450 Transferrin 204 mg/dL N 203-362 % Iron Saturation 15 % N 15-55 Laboratory test 07/01/2017 [facility] Ferritin 511.1 ng/mL High 11-[address] [place] [address] [phone] Vitamin D Total 25(Oh) 23.7 ng/mL N 20-50 Laboratory test 06/20/2017 [facility] Troponin-I (TnI) 11.64 High <0.[address] ng/[place] [address] [phone] Lipid Profile 06/20/2017 [facility] Triglycerides 62 mg/dL 6 (Trig/Chol/HDL) [address] [place] [address] [phone] Cholesterol 155 mg/dL 7 HDL Cholesterol 64.8 mg/dL 8 LDL Cholesterol 78 mg/dL 9 CBC Auto Diff 06/09/2017 [facility] White Blood 7.6 10^3/uL N 3.5-10.[address] [place] [address] [phone] Red Blood Count 3.49 10^6/uL Low 4.0-5.4 [...] Cells % 0 Comp Metabolic Panel 06/09/2017 [facility] Sodium 134 mmol/L Low 139-[address] [place] [address] [phone] Potassium 4.6 mmol/L N 3.5-5.0 Chloride 102 [...] Egfr 83.0 >60 10 Laboratory test 06/09/2017 [facility] C Reactive 4.00 mg/L N < 5.00 [address] [place] [address] [phone] Erythrocyte Sed Rate 41 mm/Hr High 0-40 12 Laboratory test 06/09/2017 [facility] Vitamin D 38.4 ng/mL N 20-[address] Total 25(Oh) [place] [address] [phone] Laboratory test 06/09/2017 [facility] TSH (Thyroid 0.56 N 0.34 -5.[address] Stim Horm) mcIU/[place] [address] [phone] Urinalysis 02/24/2017 [facility] Urine Color Natalia Profile [address] [place] [address] [phone] Urine Appearance Turbid Urine Specific [place] 1.016 N 1.010-1.030 Urine pH 6.0 N [...] Present Abnormal Absent Urine Culture And 02/24/2017 [facility] Urine Culture SEE RESULT [address] [place] [address] [phone] CBC Auto Diff 02/17/2017 [facility] White Blood 5.2 10^3/uL N 3.5-[address] Count 0.8 [place] [address] [phone] Red Blood Count 3.46 10^6/uL Low 4.0-5.4 [...] Cells % 0.3 Comp Metabolic Panel 02/17/2017 [facility] Sodium 130 mmol/L Low 133-[address] [place] [address] [phone] Potassium 4.2 mmol/L N 3.5-5.0 Chloride 99 [...] Egfr 60.4 >60 14 Laboratory test 02/17/2017 [facility] Erythrocyte Sed 51 mm/Hr High 0-[address] [place] [address] [phone] C Reactive Protein 35.44 mg/L High < 5.00 16 Iron & Iron Binding 02/17/2017 [facility] Iron 19 g/dL Low 50-212 [address] [place] [address] [phone] Unsaturated Iron Binding 337 g/dL Total Iron Binding Capacity 356 g/dL N 250-450 % Iron Saturation 5 % Low 15-55 Laboratory test 02/17/2017 [facility] Ferritin 40.2 ng/mL N 11 -307 17 finding [address] [place] [address] [phone] Vitamin D Total 25(Oh) 35.8 ng/mL N 20-50 18 Laboratory test 11/24/2016 [facility] Ferritin 16.7 ng/mL N 11 -307 finding [address] [place] [address] [phone] Iron & Iron Binding 11/24/2016 [facility] Iron 36 g/dL Low 50-212 [address] [employer] [place], [place] [phone] Unsaturated Iron Binding 353 g/dL N Total Iron Binding Capacity 389 g/dL N 250-450 % Iron Saturation 9 % Low 15-55 Laboratory test 11/24/2016 [facility] C Reactive 8.27 mg/L High < 5.00 19 finding 101 [facility] [place] [address] [phone] Erythrocyte Sed Rate 52 mm/Hr High 0-40 Comp Metabolic Panel 11/24/2016 [facility] Sodium 133 mmol/L N 133-145 [address] [place] [address] [phone] Potassium 4.5 mmol/L N 3.5-5.0 Chloride 102 [...] N >60 20 CBC Auto Diff 11/24/2016 [facility] White Blood 5.9 10^3/uL N 3.5-10.[address] [place] [address] [phone] Red Blood Count 3.16 10^6/uL Low 4.0-5.4 [...] % 0 N CBC Auto Diff 08/12/2016 [facility] White Blood 5.0 10^3/uL N 3.5-10.[address] [place] [address] [phone] Red Blood Count 3.25 10^6/uL Low 4.0-5.4 [...] % 0.1 N Comp Metabolic Panel 08/12/2016 [facility] Sodium 130 mmol/L Low 133-[address] [place] [address] [phone] Potassium 4.5 mmol/L N 3.5-5.0 Chloride 98 [...] 65.0 N >60 21 Laboratory test 08/12/2016 [facility] C Reactive 10.51 mg/L High < 5.[address] [place] [address] [phone] Erythrocyte Sed Rate 70 mm/Hr High 0-40 Vitamin D Total 25(Oh) 19.9 ng/mL Low 30-50 Comp Metabolic Panel 06/29/2016 [facility] Sodium 128 mmol/L Low 133-[address] [place] [address] [phone] Chloride 99 mmol/L Low 101-111 Co2 Carbon [...] 18 U/L N 13-39 Laboratory test 06/29/2016 [facility] C Reactive 11.78 mg/L High < 5.[address] [place] [address] [phone] CBC Auto Diff 06/29/2016 [facility] White Blood 7.5 N 3.5- 10.[address] Count 10^3/[place] [address] [phone] Red Blood Count 3.62 10^6/uL Low 4.0-5.4 [...] Cells % 0 N Laboratory test 06/29/2016 [facility] Erythrocyte Sed 73 mm/Hr High 0-[address] [place] [address] [phone] Basic Metabolic 04/28/2016 [facility] Sodium 129 Low 133-[address] mmol/[place] [address] [phone] Potassium 4.8 mmol/L N 3.5-5.0 Chloride 100 [...] N >60 25 CBC No Diff 04/28/2016 [facility] White Blood 7.8 10^3/uL N 3.5-10.[address] [place] [address] [phone] Red Blood Count 3.54 10^6/uL Low 4.0-5.4 Hemoglobin 10.7 g/dL Low 12.0-16.0 Hematocrit 32 % Low 35-47 Mean Corpuscular Volume 91 fL N 80-97 Mean Corpuscular Hemoglobin 30 pg N 27-31 Mean Corpuscular HGB Conc 33 g/dL N 31-36 Red Cell Distribution Width 13 % N 10.5-15 Platelet Count 263 10^3/uL N 150-450 Mean Platelet Volume 8 um3 N 7.4-10.4 Inr/Protime 04/28/2016 [facility] Inr 1.15 High 0.89-1.[address] [place] [address] [phone] Laboratory test 04/28/2016 [facility] Partial 30.1 seconds N 26.0-36.[address] [place] [address] Time PTT [phone] Type & Screen 04/28/2016 [facility] Patient O Positive N [address] [place] [address] [phone] Antibody Screen NEGATIVE N CBC Auto Diff 03/29/2016 [facility] White Blood 8.2 10^3/uL N 3.5-10.[address] [place], [place] [address] [phone] Red Blood Count 3.68 10^6/uL Low 4.0-5.4 [...] Cells % 0.1 N Basic Metabolic 03/29/2016 [facility] Sodium 132 mmol/L Low 133-[address] [place] [address] [phone] Potassium 4.5 mmol/L N 3.5-5.0 Chloride 101 mmol/L N 101-111 Co2 Carbon Dioxide 27 mmol/L N 22-32 Anion Gap 4 mmol/L N 2-11 Glucose 94 mg/dL N 70-100 Blood Urea Nitrogen 22 mg/dL N 6-24 Creatinine 1.03 mg/dL High 0.51-0.95 BUN/Creatinine Ratio 21.4 High 8-20 Calcium 9.3 mg/dL N 8.6-10.3 Egfr Non- 51.8 N >60 Egfr 66.6 N >60 26 Laboratory 03/29/2016 [facility] Partial Thrombo 27.0 N 26.0- 36.3 test finding [address] [place] [address] [phone] Laboratory 03/08/2016 [facility] C Reactive < 1.00 N < 5.00 27 test finding [address] Protein mg/[place] [address] [phone] Laboratory 03/08/2016 [facility] Erythrocyte Sed 39 mm/Hr N 0- 40 test finding [address] [place] [address] [phone] Comp Metabolic 03/08/2016 [facility] Sodium 129 mmol/L Low 133 -[address] [place] [address] [phone] Chloride 103 mmol/L N 101-111 Co2 Carbon [...] N 13-39 30 Comp Metabolic Panel 02/09/2016 [facility] Sodium 132 mmol/L Low 133-[address] [place] [address] [phone] Potassium 4.5 mmol/L N 3.5-5.0 Chloride 102 [...] 76.9 N >60 31 Laboratory test 02/09/2016 [facility] C Reactive < 1.00 N < 5.00 [address] Protein mg/[place] [address] [phone] CBC Auto Diff 02/09/2016 [facility] White Blood 4.7 N 3.5- 10.[address] Count 10^3/uL [place], [place] [address] [phone] Red Blood Count 3.60 10^6/uL Low 4.0-5.4 [...] Cells % 0 N Laboratory test 02/09/2016 [facility] Erythrocyte Sed 39 mm/Hr N 0-[address] [place] [address] [phone] Laboratory test 01/26/2016 [facility] C Reactive 7.52 mg/L High < 5.00 [address] [place] [address] [phone] Erythrocyte Sed Rate 61 mm/Hr High 0-40 Comp Metabolic Panel 01/26/2016 [facility] Sodium 131 mmol/L Low 133-[address] [place] [address] [phone] Potassium 4.8 mmol/L N 3.5-5.0 Chloride 103 [...] N >60 34 CBC Auto Diff 01/26/2016 [facility] White Blood 5.9 10^3/uL N 3.5-10.[address] [place] [address] [phone] Red Blood Count 3.59 10^6/uL Low 4.0-5.4 [...] % 0.2 N Comp Metabolic Panel 01/06/2016 [facility] Sodium 131 mmol/L Low 133-[address] [place] [address] [phone] Potassium 4.8 mmol/L N 3.5-5.0 Chloride 98 [...] 49.6 N >60 35 CBC Auto 01/06/2016 [facility] White Blood 11.4 10^3/uL High 3.5-10.[address] [place] [address] [phone] Red Blood Count 3.87 10^6/uL Low 4.0-5.4 [...] Cells % 0 N Laboratory test 01/06/2016 [facility] C Reactive 11.94 mg/L High < 5.00 [address] [place] [address] [phone] Erythrocyte Sed Rate 53 mm/Hr High 0-40 37 CBC Auto Diff 09/17/2015 [facility] White Blood 9.4 10^3/uL N 3.5-10.[address] [place] [address] [phone] Red Blood Count 3.68 10^6/uL Low 4.0-5.4 [...] Cells % 0 N Laboratory test 09/17/2015 [facility] C Reactive 3.01 mg/L N < 5.00 [address] [place] [address] [phone] Comp Metabolic 09/17/2015 [facility] Sodium 130 Low 133-[address] mmol/[place] [address] [phone] Potassium 4.0 mmol/L N 3.5-5.0 Chloride 100 [...] 71.4 N >60 39 Laboratory test 09/17/2015 [facility] Erythrocyte Sed 50 mm/Hr High 0-[address] [place] [address] [phone] Laboratory test 07/23/2015 [facility] Erythrocyte Sed 33 mm/Hr N 0-[address] [place] [address] [phone] CBC Auto Diff 07/23/2015 [facility] White Blood 6.2 N 3.5- 10.[address] Count 10^3/[place] [address] [phone] Red Blood Count 3.40 10^6/uL Low 4.0-5.4 [...] Cells % 0 N Laboratory test 07/23/2015 [facility] C Reactive 3.50 mg/L N < 5.00 [address] [place] [address] [phone] Comp Metabolic 07/23/2015 [facility] Sodium 132 Low 133-[address] mmol/[place] [address] [phone] Potassium 4.9 mmol/L N 3.5-5.0 Chloride 106 [...] 68.2 N >60 41 Laboratory test 07/23/2015 [facility] Cryoglobulin Negative % ppt N Negative [address] [place] [address] [phone] Vitamin B12 224 pg/mL N 180-914 43 Free T4 (Free Thyroxine) 1.15 ng/dL High 0.61-1.12 44 TSH (Thyroid Stim Horm) 0.62 ?IU/mL N 0.34-5.60 45 Protein 07/23/2015 [facility] Total 7.2 g/dL N 6.3 - Electrophoresis [address] Protein(Pep) 7.9 [place] [address] [phone] Albumin 3.2 g/dL Abnormal 3.4-4.7 Alpha-1 Globulin 0.3 g/dL N 0.1-0.3 Alpha-2 Globulin 1.0 g/dL N 0.6-1.0 Beta Globulin 1.1 g/dL N 0.7-1.2 Gamma Globulin 1.7 g/dL Abnormal 0.6-1.6 Albumin/Globulin Ratio 0.80 N Impression See Comment N 46 Laboratory test finding 07/23/2015 [facility] Anti Ssa/Ro <0.2 U N [address] [place] [address] [phone] Anti SSB LA <0.2 U N 48 Laboratory test 06/25/2015 [facility] Erythrocyte Sed 61 mm/Hr High 0-[address] [place] [address] [phone] CBC Auto Diff 06/25/2015 [facility] White Blood 7.7 N 3.5- 10.[address] Count 10^3/[place] [address] [phone] Red Blood Count 3.00 10^6/uL Low 4.0-5.4 [...] Cells % 0 N Laboratory test 06/25/2015 [facility] C Reactive 17.95 mg/L High < 5.00 [address] [place] [address] [phone] Comp Metabolic 06/25/2015 [facility] Sodium 130 mmol/L Low 133 -145 Panel [address] [place] [address] [phone] Potassium 4.3 mmol/L N 3.5-5.0 Chloride 101 [...] N >60 50 Comp Metabolic Panel 05/21/2015 [facility] Sodium 131 mmol/L Low 133-145 [address] [place] [address] [phone] Potassium 4.6 mmol/L N 3.5-5.0 Chloride 99 [...] N >60 51 CBC Auto Diff 05/21/2015 [facility] White Blood 9.0 10^3/uL N 3.5-10.[address] Count [place] [address] [phone] Red Blood Count 3.55 10^6/uL Low 4.0-5.4 [...] Cells % 0 N Laboratory test 05/21/2015 [facility] C Reactive 64.88 mg/L High < 5.00 [address] [place] [address] [phone] Erythrocyte Sed Rate 89 mm/Hr High 0-40 53 Quantiferon Gold 05/21/2015 [facility] M tuberculosis Negative N Negative TB [address] [place] [address] [phone] Tuberculosis Antigen Value 0.00 IU/mL N 54 Laboratory test 04/22/2015 [facility] Sepideh (Antinuclear Negative N Negative finding [address] Antibodies) [place] [address] [phone] Angiotensin Converting Enzyme 9 U/L N 8 - 53 55 C Reactive Protein 55.48 mg/L High < 5.00 56 Cyclic Citrullinated Pep Igg >250.0 U Abnormal 57 Rheumatoid Factor <15 IU/mL N <15 58 Uric Acid 6.5 mg/dL N 2.3-6.6 59 Vitamin B12 347 pg/mL N 180-914 60 Vitamin D 1,25 04/22/2015 [facility] Vitamin D 14.4 ng/mL Low 30-50 61 And Vitamin D,[address] Total 25(Oh) [place] [address] [phone] Vitamin D, 1,25 Dihydroxy 42 pg/mL N 18-78 62 Laboratory test 04/22/2015 [facility] Lyme Disease Negative N Negative [address] [place] [address] [phone] CBC No Diff 03/17/2014 [facility] White Blood 5.8 10^3/uL N 4.8-10.[address] [place] [address] [phone] Red Blood Count 3.89 10^6/uL Low 4.0-5.4 Hemoglobin 11.2 g/dL Low 12.0-16.0 Hematocrit 35 % N 35-47 Mean Corpuscular Volume 90 fL N 80-97 Mean Corpuscular Hemoglobin 29 pg N 27-31 Mean Corpuscular HGB Conc 32 g/dL N 31-36 Red Cell Distribution Width 15 % N 10.5-15 Platelet Count 262 10^3/uL N 150-450 Mean Platelet Volume 9 um3 N 7.4-10.4 Basic Metabolic 03/17/2014 [facility] Sodium 131 mmol/L Low 133-145 Panel [address] [place] [address] [phone] Potassium 4.1 mmol/L N 3.5-5.0 Chloride 100 mmol/L Low 101-111 Co2 Carbon Dioxide 28 mmol/L N 22-32 Anion Gap 3 mmol/L N 2-11 Glucose 105 mg/dL High 70-100 Blood Urea Nitrogen 25 mg/dL High 6-24 Creatinine 1.01 mg/dL High 0.51-0.95 BUN/Creatinine Ratio 24.8 High 8-20 Calcium 10.0 mg/dL N 8.6-10.3 Egfr Non- 53.3 N >60 Egfr 68.5 N >60 65 Inr/Protime 03/17/2014 [facility] Inr 1.01 N 0.85-1.06 [address] [place] [address] [phone] Laboratory test 03/17/2014 [facility] Activated 28.5 seconds N 24.0-36.1 66 finding [address] [facility] [place] [address] Thrombo Time [phone] Type & Screen 03/17/2014 [facility] Patient Blood O Positive N [address] [facility] [place] [address] [phone] Antibody Screen NEGATIVE N 1 Because ethnic [...] inflammation: >10.00 5 Result TnIDx:11.64 Called to [id number] at: 08:19:45 by:[id number] Read back by:[id number] Desirable: <150 Borderline High: 150-199 High: [...] [address]: Estuardo Christiansen NP Acct: [id number] Unit: [id number] AGE: 81 Location: LAB Re02/24/17 SEX: F Status: REG REF SPEC: [id number] ELIAS: 02/24/[address]: Estuardo Christiansen NP REQ: [id number] RECD: 02/24/17 STATUS: COMP _ SOURCE: URINE SPDESC: ORDERED: Urine Culture Procedure Result Reported Site Urine Culture Final 02/26/17- 0853 ML Organism 1 ESCHERICHIA COLI S [place] Count >100,000 (Many) CFU/ML 1. ESCHERICHIA COLI [...] antibiotic reporting. * ML - MAIN LAB ([facility]) . END OF REPORT * ML=Testing performed at Main Lab DEPARTMENT OF PATHOLOGY, [address] [place] [address] Mode Wilburn M.D. Director [facility] # [id number] 14 Because ethnic data is not always [...] additional report will follow. Test Performed by: [place] [address] [employer]: Rashaun Yo II, M.D., Ph.D. 43 Normal Range 180 to 914 Indeterminate Range 145 to 180 Deficient Range <145 44 Copy Result to: ERASTO BHARDWAJ ([id number]) 45 Copy Result to: ERASTO BHARDWAJ ([id number]) 46 RESULT: Polyclonal hypergammaglobulinemia Test Performed by: [place] [address] [employer] Manager: Rashaun Yo II, M.D., Ph.D. 47 REFERENCE VALUE <1.0 (Negative) Test Performed by: [place] [address] [employer] Manager: Rashaun Yo II, M.D., Ph.D. 48 REFERENCE VALUE <1.0 (Negative) Test Performed by: [place] [address] [employer] Manager: Rashaun Yo II, M.D., Ph.D. 49 Acute [...] when interpreting QuantiFERON-TB results. Test Performed by: [place] [address] [employer] Property Manager: Rashaun Yo II, M.D., Ph.D. 55 Test Performed by: [place] [address] [employer] Manager: Rashaun Yo II, M.D., Ph.D. 56 Acute inflammation: >10.00 57 Interpretation: Strong Positive (>=60.0) REFERENCE VALUE <20.0 (Negative) Test Performed by: [place] [address] [employer] Manager: Rashaun Yo II, M.D., Ph.D. 58 Test Performed by: [place] [address] [employer]: Rashaun Yo II, M.D., Ph.D. 59 this week 60 Normal Range 180 to 914 Indeterminate Range 145 to 180 Deficient Range <145 61 this week 62 Test Performed by: [place] [address] [employer]: Rashaun Yo II, M.D., Ph.D. 63 Serologic response to B. burgdorferi infection is not detected, but cannot rule out early infection during which low or undetectable antibody levels to B. burgdorferi may be present. If clinically indicated, a new serum specimen should be submitted in 7-14 days. Test Performed by: [place] [address] [employer]: Rashaun Yo II, M.D., Ph.D. 64 [facility] 03/20 67 Because ethnic data is [...] 03/20 Procedures Date Code Description Status 04/21/2018 58688 Holter Monitor Review (24 hr)dr suarez & interp only Completed 04/16/2018 20862 ECG Monitor/Recording W/Visual Superimposition Completed Scanning 04/09/2018 [id number] Bone Mineral Density Test Completed 03/28/2018 11999 EKG Tracing & Interpretation Completed 03/26/2018 06346 Admin Of Inj Completed 03/26/2018 58837 EKG Tracing & Interpretation Completed 02/21/2018 73337 EKG Tracing & Interpretation Completed 09/22/2017 42188 Admin Of Inj Completed 09/07/2017 14041 EKG Tracing & Interpretation Completed 07/28/2017 07019 Mobile Cardiovascular Telemetry Over 24 HR Up To 30 Completed Days 07/19/2017 68752 ECHO Transthoracic, Real-Time 2D With Doppler And Completed Color Flow 07/19/2017 07189 ECHO Transthoracic, Real-Time 2D With Doppler And Completed Color Flow 07/05/2017 78003 EKG Tracing & Interpretation Completed 06/20/2017 81125 ECHO Transthorasic Realtime 2D W Doppler & Color Flow Completed Hosp 06/20/2017 27042 Cath PLMT&NJX L Ventriculog Img S&I Completed 02/24/2017 70239 Admin Of Inj Completed 05/06/2016 68641 Arthroplasty,Total Shoulder Replacement (TSR) Completed 05/06/2016 58808 Arthroplasty,Total Shoulder Replacement (TSR) Completed 02/17/2016 47652 Inject/Drain Joint/Bursa Major W/O US Completed 01/06/2016 91950 Chemotherpy Admin Subcutaneous/Im Non-Hormonal Completed Anti-Neoplastic 08/25/2015 26724 Nerve Conduction 07-08 Studies Completed 06/24/2015 04892 Chemotherpy Admin Subcutaneous/Im Non-Hormonal Completed Anti-Neoplastic 05/21/2015 [id number] Bone Mineral Density Test Completed 03/20/2014 83556 Repair Nonunion/Malunion Humerus Completed 03/20/2014 40332 Repair Nonunion/Malunion Humerus Completed 03/05/2014 49253 Rad Exam; Humerus Completed 02/03/2014 49464 Rad Exam; Humerus Completed 01/08/2014 58875 Rad Exam; Humerus Completed 12/17/2013 13849 closed tx humeral shaft fx w/manipulation w w/o Completed traction Encounters Type Date Location Provider Dx Diagnosis Office Visit 2018 Rheumatology Estuardo Christiansen, 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 I44.7 Left bundle-branch Of [employer] Ryan M.D. 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 disease of hoh coronary artery w/o ang pctrs I47.1 Supraventricular tachycardia I44.7 Left bundle-branch block, unspecified I10 Essential (primary) hypertension I25.5 Ischemic cardiomyopathy Z95.1 Presence of aortocoronary bypass graft Office Visit 07/05/2017 9:45a [facility] Donaldo Martell I21.4 Non-St elevation Of Caty Davis M.D. 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 Office Visit 06/09/2017 9:30a Rheumatology Estuardo Christiansen, M05.79 Rheu arthritis Services Of [facility] rheu factor mult site w/o org/sys involv D50.9 Iron deficiency anemia, unspecified M81.0 Age-related osteoporosis w/o current pathological fracture E55.9 Vitamin D deficiency, unspecified R53.83 Other fatigue Z79.899 Other ip paralegal (current) drug therapy M25.512 Pain in left shoulder Office Visit 02/24/2017 9:00a Rheumatology Estuardo Christiansen M05.79 Rheu arthritis Services Of [facility] rheu factor mult site w/o org/sys involv R79.82 Elevated C-reactive protein (CRP) D50.9 Iron deficiency anemia, unspecified M81.0 Age-related osteoporosis w/o current pathological fracture E55.9 Vitamin D deficiency, unspecified R05 Cough R30.0 Dysuria Z79.899 Other long-term (current) drug therapy Z92.29 Personal history of other drug therapy Office Visit 12/06/2016 1:30p Orthopedic Carla Workman, M05.79 Rheu arthritis w Services Of MD lora factor marcela C.M.A. 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 R79.82 Elevated C-reactive protein (CRP) R70.0 Elevated erythrocyte sedimentation rate D64.9 Anemia, unspecified M81.0 Age-related osteoporosis w/o current pathological fracture Z79.899 Other ip paralegal (current) drug therapy Office Visit 07/15/2016 9:00a Rheumatology Estuardo Christiansen M05.79 Rheu arthritis Services Of [facility] rheu factor mult 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 right shoulder Office Visit 03/02/2016 Rheumatology Marvin M05.Darshan Ot rheumatoid 10:00a Services Of Caty Negro M.D. arthritis w rheumatoid factor mult site G62.9 Polyneuropathy, unspecified Z79.899 Other long-term (current) drug therapy M81.0 Age-related osteoporosis w/o [...] mult site G62.9 Polyneuropathy, unspecified Z79.899 Other ip paralegal (current) drug therapy Z23 Encounter for immunization Office Visit 10/01/2015 10:40a Rheumatology Marvin 5.89 Oth rheumatoid Services Of Caty Negro M.D. arthritis w rheumatoid factor mult site G62.9 Polyneuropathy, unspecified E10.9 Type 1 diabetes mellitus without complications Z79.899 Other ip paralegal (current) drug therapy Office Visit 07/28/2015 10:40a Rheumatology Marvin 5.89 Ot rheumatoid Services Of Caty Negro M.D. arthritis w rheumatoid factor mult site G62.9 Polyneuropathy, unspecified M81.0 Age-related osteoporosis w/o current pathological fracture Z79.899 Other ip paralegal (current) drug therapy Office Visit 07/21/2015 Joe Hernandez G62.9 Polyneuropathy, 9:00a Neurologic Cuca Godoy unspecified Services Of [facility] G56.02 Carpal tunnel syndrome, left upper limb G56.01 Carpal tunnel syndrome, right upper limb G56.22 Lesion of ulnar nerve, left upper limb Office Visit 05/20/2015 9:00a Rheumatology Marvin M05.89 Oth rheumatoid Services Of Caty Negro M.D. arthritis w rheumatoid factor mult site Z79.899 Other long-term (current) drug therapy R20.8 Other disturbances of [...] - KEILA Fraga at Rheumatology Services Of [facility]2018 - LEONEL FragaPM05.79 Rheumatoid arthritis with rheumatoid factor of multiple siteComments:Will get labs today.I will check CT scan If your labs normal and yo do not have inflammation, we will not restart on the MTX.Follow up:8 weeks. Labs [id number] CoughComments:I will need to review CT scanI48.3 Typical atrial flutterComments:Please call Dr. Davis and let him know that you do not have any more Xarelto.M25.511 Pain in right shoulderNew Medication:Diclofenac Sodium 1 % - apply 2 grams on RT shoulder twice dailyComments:We discussed that you may start using the topical antiinflammatory on your shoulder.M81.0 Age-related osteoporosis without current pathological jwirslC91.899 Other ip paralegal (current) drug therapy
[2018-07-11 17:10] VITALS: BP 170/70
== END | disposition left against medical advice (07) ==
LOC: ED 15:16
DX: I50.9 Heart failure, unspecified (principal); Z53.21 Procedure and treatment not carried out due to patient leaving prior to being seen by health care provider
CPT/HCPCS: 99281

== ENCOUNTER → 2018-07-12 13:56 | Emergency (ER) | payer MEDICARE ==
--- NOTE | 2018-07-12 14:38 | ED ---
Upper Extremity Pain - HPI Summary HPI Summary: The patient is an 83 y/o F presenting to [facility] accompanied by daughter with a chief complaint of gradual onset right shoulder pain that radiates to her forearm starting one week ago. She states that she had the right shoulder replaced three years ago, but she hasn't had pain in that arm until she recently had a pacemaker placed on the left side. She is unable to move the right arm at this time without experiencing pain. The sharp pain is currently rated 7/10 in severity. She additionally c/o neck pain and dizziness. She denies any CP at this time. She is here for PT and OT evaluation. Hx of DM, angina, HLD, HTN, CAD. - History of Current Complaint Chief Complaint: EDGeneral Stated Complaint: DIZZINESS PER PT FAMILY Time Seen by Provider: 07/12/18 14:20 Hx Obtained From: Patient Mechanism Of Injury: Unknown Onset/Duration: Started Days Ago - one week, Still Present Timing: Lasting Days Severity Initially: Moderate Severity Currently: Severe Pain Location: Shoulder - right, Forearm - right Character: Sharp Aggravating Factor(s): Movement Alleviating Factor(s): Rest Associated Signs & Symptoms: Positive: Other - neck pain, dizziness. Negative: Chest Pain - Allergies/Home Medications Allergies/Adverse Reactions: Allergies Allergy/AdvReac Type Severity Reaction Status Date / Time hydroxyzine Allergy Unknown Verified 07/12/18 14:05 Reaction Details Iodinated Contrast- Oral and AdvReac Severe Diarrhea Verified 07/12/18 14:05 IV Dye oxycodone AdvReac Severe Nausea And Verified 07/12/18 14:05 Vomiting amoxicillin [From Augmentin] AdvReac Intermediate Nausea And Verified 07/12/18 14:05 Vomiting clavulanic acid AdvReac Intermediate Nausea And Verified 07/12/18 14:05 [From Augmentin] Vomiting PMH/Surg Hx/FS Hx/Imm Hx Endocrine/Hematology History: Reports: Hx Diabetes - TYPE ll Cardiovascular History: Reports: Hx Angina, Hx Coronary Artery Disease - CAROTID ENDARTERECTOMY 2013, Hx Hypercholesterolemia, Hx Hypertension, Hx Valvular Heart Disease - Valve repair, Other Cardiovascular Problems/Disorders - HIGH CHOLESTEROL, LBBB, SEE COMMENT Denies: Hx Myocardial Infarction, Hx Pacemaker/ICD Respiratory History: Denies: Hx Asthma, Hx Chronic Obstructive Pulmonary Disease (COPD) GI History: Reports: Hx Gastroesophageal Reflux Disease - ON PROTONIX DAILY, Hx Hiatal Hernia - HISTORY OF, Other GI Disorders - CHOLECYSTECTOMY, ABD HERNIA REPAIR, PANCREATITIS, HIGH CHOLESTEROL History: Reports: Other Problems/Disorders - STRESS INCONTINENCE WITH COUGHING/SNEEZING Denies: Hx Chronic Renal Failure Musculoskeletal History: Reports: Hx Arthritis - RIGHT SHOULDER, KNEES, Other Musculoskeletal History - PRIMARY OSTEOARTHRITIS, RIGHT SHOULDER, BILAT TKR, FX HUMERUS Sensory History: Reports: Hx Cataracts, Hx Contacts or Glasses - GLASSES Denies: Hx Hearing Aid Opthamlomology History: Reports: Hx Cataracts, Hx Contacts or Glasses - GLASSES Neurological History: Denies: Other Neuro Impairments/Disorders - RESIDUAL - Cancer History Hx Chemotherapy: No - Surgical History Surgery Procedure, Year, and Place: 05/2001 CHOLECYSTECTOMY- [facility]. 2002 ADB HERNIA REPAIR- [facility]. 2003 LEFT TKR- [facility]. 2004 RIGHT TKR- [facility]. 2013 BILATERAL CAROTID ENDARTERECTOMY- [facility]. 02/2014 ORIF FX LEFT HUMERUS- [facility]. 05/2015 BILATERAL CATARACT EXTRACTION WITH IOL IMPLANT- [facility] Hx Anesthesia Reactions: No Infectious Disease History: No Infectious Disease History: Denies: Hx Clostridium Difficile, Hx Hepatitis, Hx Human Immunodeficiency Virus (HIV), Hx of Known/Suspected MRSA, Hx Shingles, Hx Tuberculosis, History Other Infectious Disease, Traveled Outside the [place] in Last 30 Days - Family History Known Family History: Positive: Cardiac Disease - Social History Alcohol Use: None Hx Substance Use: No Substance Use Type: Reports: None Hx Tobacco Use: No Smoking Status (MU): Never Smoked Tobacco Do You Chew or Dip Tobacco: No Have You Chewed or Dipped Tobacco in the LAST YEAR: No Have You Smoked in the Last Year: No Review of Systems Negative: Chest Pain Positive: Decreased ROM - in right shoulder, Other - right arm pain from shoulder to forearm, neck pain Neurological: Other - dizziness All Other Systems Reviewed And Are Negative: Yes Physical Exam - Summary Physical Exam Summary: VITAL SIGNS: Reviewed. GENERAL: Patient is a well-developed and nourished female who is lying comfortable in the stretcher. Patient is not in any acute respiratory distress. HEAD AND FACE: No signs of trauma. No ecchymosis, hematomas or skull depressions. No sinus tenderness. EYES: PERRLA, EOMI x 2, No injected conjunctiva, no nystagmus. EARS: Hearing grossly intact. Ear canals and tympanic membranes are within normal limits. MOUTH: Oropharynx within normal limits. NECK: Supple, trachea is midline, no adenopathy, no JVD, no carotid bruit, no c- spine tenderness, neck with full ROM. CHEST: Symmetric, no tenderness at palpation LUNGS: Clear to auscultation bilaterally. No wheezing or crackles. CVS: Regular rate and rhythm, S1 and S2 present, no murmurs or gallops appreciated. ABDOMEN: Soft, non-tender. No signs of distention. No rebound no guarding, and no masses palpated. Bowel sounds are normal. EXTREMITIES: FROM in the lower extremities, decreased ROM in the RUE and LUE, no edema, no cyanosis or clubbing. NEURO: Alert and oriented x 3. No acute neurological deficits. Speech is normal and follows commands. SKIN: Dry and warm. Triage Information Reviewed: Yes Vital Signs On Initial Exam: Initial Vitals Temp Pulse Resp BP Pulse Ox 98.1 F 101 18 128/57 98 07/12/18 14:03 07/12/18 14:03 07/12/18 14:03 07/12/18 14:03 07/12/18 14:03 Vital Signs Reviewed: Yes Diagnostics - Vital Signs Vital Signs Temp Pulse Resp BP Pulse Ox 07/12/18 14:03 98.1 F 101 18 128/57 98 - Laboratory Lab Statement: Any lab studies that have been ordered have been reviewed, and results considered in the medical decision making process. - Radiology R Elbow XR Radiology Interpretation Completed By: Radiologist Summary of Radiographic Findings: No fracture of the right elbow is noted. ED physician has reviewed this report. R Forearm XR Radiology Interpretation Completed By: Radiologist Summary of Radiographic Findings: No fracture of the right forearm is noted. ED physician has reviewed this report. R Humerus XR Radiology Interpretation Completed By: Radiologist Summary of Radiographic Findings: No fracture or periprosthetic injury is noted. ED physician has reviewed this report. R Shoulder XR Radiology Interpretation Completed By: Radiologist Summary of Radiographic Findings: No evidence of periprosthetic lucency is noted. Reverse glenohumeral joint prosthesis. ED physician has reviewed this report. Course/Dx - Course Assessment/Plan: The patient is an 83 y/o F presenting to [facility] accompanied by daughter with a chief complaint of gradual onset right shoulder pain that radiates to her forearm starting one week ago. She states that she had the right shoulder replaced three years ago, but she hasn't had pain in that arm until she recently had a pacemaker placed on the left side. She is unable to move the right arm at this time without experiencing pain. The sharp pain is currently rated 7/10 in severity. She additionally c/o neck pain and dizziness. She denies any CP at this time. She is here for PT and OT evaluation. Hx of DM, angina, HLD, HTN, CAD. Shoulder x-ray impression: No evidence of periprosthetic lucency is noted. X-ray of the right humerus impression: No fracture or periprosthetic injuries noted. Forearm x-ray impression: No fracture of the right forearm is noted. X-ray of the elbow impression: No fracture of the right elbow is noted. The patient was evaluated by PT. Assessment: Pt demonstrates independence with mobility using 4 wheeled walker and independent with transfers. Pt demonstrated decreased balance with narrow base of support and eyes closed which indicates balance impairment. Pt deficits with ADLs likely attributed to RUE pain and LUE restrictions. Pt appears safe for mobility though requires assistance for ADLs which daughter seems unable to provide on a consistent basis. Therapist unable to determine safety of home mobility without further home assessment though it seems feasible pt has an increased risk for falls at night and due to reported fluctuations in balance. Plan: Recommend PT for balance and functional mobility, OT for ADL training / recommendations. Further recommendation of home vs facility from this therapist limited and is dependent on medical evaluation of reported balance fluctuations. client development manager Ruddy Lima's report: Irena Jose and myself met with patient and daughter to discuss options. Informed patient of option of assisted care and appealing through [facility]. Made aware that if lost appeal they would be responsible for cost of stay. Discussed alternate options such as help from friends/family or hiring privately. Recommended seeking assistance from [facility] as well. Provided with list of home health agencies. Offered [facility] but this was declined. After lengthy discussion patient and daughter decided to go home and agreed to seek help privately in addition to current services offered through [facility]. Patient stated willingness to hire help. Primary RN updated and will supply list of agencies along with D/C instructions. Therefore, I discussed the test results with the patient, and the recommendations from PT and employment evaluator/case manager, and the patient will be discharged home with follow-up as recommended. - Diagnoses Differential Diagnosis/HQI/PQRI: Positive: Bursitis, Contusion, Fracture (Closed ), Strain, Sprain Provider Diagnoses: Shoulder pain, Right upper limb pain - Physician Notifications Discussed Care of Patient With: Eddie Silver - physical therapy Time Discussed With Above Provider: 15:15 Instructed by Provider To: Other - I consulted with PT Eddie Silver concerning what the plan for the patient should be. He suggests that the patient does need , but she is safe to go home at this time. Although her daughter states that the patient is a higher fall risk during certain times of the day, but currently the patient has good balance. I spoke with Valentina Burt at 1614 to figure out the next steps. At 1618, I spoke with social service assistant to see if they have a plan. At 1700, social service assistant does not believe there is need for the patient to be admitted at this time. Discharge - Sign-Out/Discharge Documenting (check all that apply): Patient Departure - Patient will be discharged home. Patient Received Moderate/Deep Sedation with Procedure: No - Discharge Plan Condition: Stable Disposition: HOME Patient Education Materials: Shoulder Pain (ED) Referrals: Kanu Bhardwaj MD [Primary Care Provider] - Additional Instructions: FOLLOW UP WITH YOUR PRIMARY CARE PROVIDER WITHIN ONE WEEK. RETURN TO THE ED FOR ANY WORSENING OR NEW SYMPTOMS. - Billing Disposition and Condition Condition: STABLE Disposition: Home - Attestation Statements Document Initiated by Tom: Yes Documenting Scribe: Shante Scott Provider For Whom Tom is Documenting (Include Credential): Dr. Diogo Ashley MD Scribe Attestation: Shante Chaavrria scribed for Dr. Diogo Ashley MD on 07/12/18 at 2203. Scribe Documentation Reviewed: Yes Provider Attestation: The documentation as recorded by the Shante pacheco accurately reflects the service I personally performed and the decisions made by me, Dr. Diogo Ashley MD Status of Scribamilcar Document: Viewed
[2018-07-12 18:00] VITALS: BP 127/61
== END | disposition home or self-care (01) ==
LOC: ED 13:56
DX: M25.511 Pain in right shoulder (principal); E11.9 Type 2 diabetes mellitus without complications; I25.10 Atherosclerotic heart disease of native coronary artery without angina pectoris; E78.00 Pure hypercholesterolemia, unspecified; I10 Essential (primary) hypertension; K21.9 Gastro-esophageal reflux disease without esophagitis; K44.9 Diaphragmatic hernia without obstruction or gangrene; M13.811 Other specified arthritis, right shoulder; M13.862 Other specified arthritis, left knee; M13.861 Other specified arthritis, right knee; Z88.8 Allergy status to other drugs, medicaments and biological substances; Z91.041 Radiographic dye allergy status; Z88.3 Allergy status to other anti-infective agents
CPT/HCPCS: 99282

== ENCOUNTER 2018-09-06 22:43 | Inpatient (IN) | payer MEDICARE ==
[2018-09-07 00:04] LABS: Hematocrit 33 % (35-47); Hemoglobin 10.9 g/dL (12.0-16.0); Mean Corpuscular HGB Conc 33 g/dL (31-36); Mean Corpuscular Hemoglobin 30 pg (27-31); Mean Corpuscular Volume 91 fL (80-97); Mean Platelet Volume 10.4 fL (7.4-10.4); Platelet Count 86 10^3/uL (150-450); Red Blood Count 3.65 10^6 /uL (3.70-4.87); Red Cell Distribution Width 21 % (10-15); White Blood Count 5.3 10^3/uL (3.5-10.8)
[2018-09-07 00:29] LABS: BUN/Creatinine Ratio 18.4 (8-20); Calcium 10.2 mg/dL (8.6-10.3); Potassium 3.6 mmol/L (3.5-5.0); Total Protein 6.2 g/dL (6.4-8.9)
[2018-09-07 00:30] LABS: Albumin 3.4 g/dL (3.2-5.2); Albumin/Globulin Ratio 1.2 (1-3); Globulin 2.8 g/dL (2-4); Total Bilirubin 1.7 mg/dL (0.2-1.0)
[2018-09-07 00:38] LABS: ABS Lymphocytes 1.3 10^3/ul (1.0-4.8); ABS Monocytes 0.5 10^3/ul (0-0.8); ABS Neutrophils 3.4 10^3/ul (1.5-7.7); Eosinophil % 0.6 %; Nucleated Red Blood Cells % 0.1
[2018-09-07] MEDS ORDERED: NS 0.9% 1000 ML** 1,000 ML IV ONE (00:59)
--- NOTE | 2018-09-07 00:59 | ED ---
Adult Trauma - HPI Summary HPI Summary: Patient presents with daughter complaining of right wrist pain status post mechanical fall. Daughter states patient complained of neck pain and hip pain, however patient complains only of right wrist pain. Daughter states patient has history of 7-8 falls this week, and seems very overwhelmed with being caregiver to patient. Patient lives with daughter. Patient is alert and oriented. Patient states she was learning over to get something from under the kitchen sink and lost her balance. Daughter states she came in and found patient on the floor. Patient ambulates at baseline with walker, has ambulated since fall. Patient is currently on antibiotics for bilateral lower extremity cellulitis and UTI per PCP. Medical history is HTN, DM 2, CVA, CHF. Patient on Eliquis. - History of Current Complaint Chief Complaint: EDFall Stated Complaint: DIFF AMBULATING PER EMS Time Seen by Provider: 09/06/18 23:13 Hx Obtained From: Patient Mechanism of Injury: Fall Loss of Consciousness: no loss of consciousness Onset/Duration: Started Hours Ago Onset Severity: Mild Current Severity: Mild Pain Intensity: 2 Pain Scale Used: 0-10 Numeric Location: Extremities Character: Aching Aggravating Factor(s): Movement Alleviating Factor(s): Nothing Associated Signs & Symptoms: Positive: Negative - Additional Pertinent History Primary Care Physician: [id number] - Allergy/Home Medications Allergies/Adverse Reactions: Allergies Allergy/AdvReac Type Severity Reaction Status Date / Time hydroxyzine Allergy Unknown Verified 07/12/18 14:05 Reaction Details Iodinated Contrast- Oral and AdvReac Severe Diarrhea Verified 07/12/18 14:05 IV Dye oxycodone AdvReac Severe Nausea And Verified 07/12/18 14:05 Vomiting amoxicillin [From Augmentin] AdvReac Intermediate Nausea And Verified 07/12/18 14:05 Vomiting clavulanic acid AdvReac Intermediate Nausea And Verified 07/12/18 14:05 [From Augmentin] Vomiting Home Medications: Home Medications FLUoxetine CAP* [Prozac CAP*] 10 mg PO DAILY 09/07/18 [History Confirmed ] Furosemide TAB* [Lasix TAB*] 20 mg PO DAILY 09/07/18 [History Confirmed 09/07/18 ] PMH/Surg Hx/FS Hx/Imm Hx Endocrine/Hematology History: Reports: Hx Diabetes - TYPE ll Cardiovascular History: Reports: Hx Angina, Hx Coronary Artery Disease - CAROTID ENDARTERECTOMY 2014, Hx Hypercholesterolemia, Hx Hypertension, Hx Valvular Heart Disease - Valve repair, Other Cardiovascular Problems/Disorders - HIGH CHOLESTEROL, LBBB, SEE COMMENT Denies: Hx Myocardial Infarction, Hx Pacemaker/ICD Respiratory History: Denies: Hx Asthma, Hx Chronic Obstructive Pulmonary Disease (COPD) GI History: Reports: Hx Gastroesophageal Reflux Disease - ON PROTONIX DAILY, Hx Hiatal Hernia - HISTORY OF, Other GI Disorders - CHOLECYSTECTOMY, ABD HERNIA REPAIR, PANCREATITIS, HIGH CHOLESTEROL History: Reports: Other Problems/Disorders - STRESS INCONTINENCE WITH COUGHING/SNEEZING Denies: Hx Chronic Renal Failure Musculoskeletal History: Reports: Hx Arthritis - RIGHT SHOULDER, KNEES, Other Musculoskeletal History - PRIMARY OSTEOARTHRITIS, RIGHT SHOULDER, BILAT TKR, FX HUMERUS Sensory History: Reports: Hx Cataracts, Hx Contacts or Glasses - GLASSES Denies: Hx Hearing Aid Opthamlomology History: Reports: Hx Cataracts, Hx Contacts or Glasses - GLASSES EENT History: Denies: Hx Deafness Neurological History: Denies: Other Neuro Impairments/Disorders - RESIDUAL Psychiatric History: Denies: Hx Autism - Cancer History Hx Chemotherapy: No - Surgical History Surgery Procedure, Year, and Place: 05/2001 CHO[place]STECTOMY- [place]. 2003 ADB [place]IA REPAIR- [place]. 2004 LEFT TKR- [place]. 2005 RIGHT TKR- [place]. 2014 BILATERAL CAROTID ENDARTERECTOMY- [place] [facility]. 02/2014 ORIF FX LEFT HUMERUS- [facility]. 05/2015 BILATERAL CATARACT EXTRACTION WITH IOL IMPLANT- [facility] Hx Anesthesia Reactions: No Infectious Disease History: No Infectious Disease History: Denies: Hx Clostridium Difficile, Hx Hepatitis, Hx Human Immunodeficiency Virus (HIV), Hx of Known/Suspected MRSA, Hx Shingles, Hx Tuberculosis, History Other Infectious Disease, Traveled Outside the [place] in Last 30 Days - Family History Known Family History: Positive: Cardiac Disease - Social History Alcohol Use: None Hx Substance Use: No Substance Use Type: Reports: None Hx Tobacco Use: No Smoking Status (MU): Never Smoked Tobacco Have You Smoked in the Last Year: No Review of Systems Constitutional: Negative Eyes: Negative ENT: Negative Cardiovascular: Negative Respiratory: Negative Gastrointestinal: Negative Genitourinary: Negative Musculoskeletal: Other Skin: Negative Neurological: Negative Psychological: Normal All Other Systems Reviewed And Are Negative: Yes Physical Exam - Summary Physical Exam Summary: Neuro exam normal. No evidence of trauma to mouth, face, head. Full range of motion of neck and jaw. No pain with palpation of neck, back, chest wall, abdomen. Patient moves all 4 extremities freely without pain. Patient moves right wrist freely. Mild pain with palpation of right wrist. Triage Information Reviewed: Yes Vital Signs On Initial Exam: Initial Vitals Temp Pulse Resp BP Pulse Ox 98.5 F 63 14 128/64 95 09/06/18 22:51 09/06/18 22:51 09/06/18 22:51 09/06/18 22:51 09/06/18 22:51 Vital Signs Reviewed: Yes Appearance: Positive: Well-Appearing Skin: Positive: Warm Head/Face: Positive: Normal Head/Face Inspection Eyes: Positive: Normal ENT: Positive: Normal ENT inspection Dental: Negative: Dental Fracture @, Bleeding Neck: Positive: Supple Respiratory/Lung Sounds: Positive: Clear to Auscultation Cardiovascular: Positive: Normal Abdomen Description: Positive: Nontender Musculoskeletal: Positive: Normal Neurological: Positive: Normal Psychiatric: Positive: Normal AVPU Assessment: Alert - Juan Coma Scale Best Eye Response: 4 - Spontaneous Best Motor Response: 6 - Obeys Commands Best Verbal Response: 5 - Oriented Coma Scale Total: 15 Diagnostics - Vital Signs Vital Signs Temp Pulse Resp BP Pulse Ox 09/06/18 22:54 16 128/64 09/06/18 22:51 98.5 F 63 14 128/64 95 - Laboratory Lab Results: Lab Results 09/06/18 09/06/18 Range/Units 23:37 23:37 WBC 5.3 (3.5-10.8) 10^3/uL RBC 3.65 L (3.70-4.87) 10^6 /uL Hgb 10.9 L (12.0-16.0) g/dL Hct 33 L (35-47) % MCV 91 (80-97) fL MCH 30 (27-31) pg MCHC 33 (31-36) g/dL RDW 21 H (10-15) % Plt Count 86 L D (150-450) 10^3/uL MPV 10.4 (7.4-10.4) fL Neut % (Auto) 64.6 % Lymph % (Auto) 24.0 % [place] % (Auto) 10.4 % Eos % (Auto) 0.6 % Baso % (Auto) 0.4 % Absolute Neuts (auto) 3.4 (1.5-7.7) 10^3/ul Absolute Lymphs (auto) 1.3 (1.0-4.8) 10^3/ul Absolute Monos (auto) 0.5 (0-0.8) 10^3/ul Absolute Eos (auto) 0.0 (0-0.6) 10^3/ul Absolute Basos (auto) 0.0 (0-0.2) 10^3/ul Absolute Nucleated RBC 0.0 10^3/ul Nucleated RBC % 0.1 Hem Pathologist Commnt Pending Sodium 132 L (135-145) mmol/L Potassium 3.6 (3.5-5.0) mmol/L Chloride 94 L (101-111) mmol/L Carbon Dioxide 30 (22-32) mmol/L Anion Gap 8 (2-11) mmol/L BUN 45 H (6-24) mg/dL Creatinine 2.44 H (0.51-0.95) mg/dL Est GFR ( Amer) 23.0 (>60) Est GFR (Non-Af Amer) 19.0 (>60) BUN/Creatinine Ratio 18.4 (8-20) Glucose 110 H (70-100) mg/dL Calcium 10.2 (8.6-10.3) mg/dL Total Bilirubin 1.70 H (0.2-1.0) mg/dL AST 33 (13-39) U/L ALT 16 (7-52) U/L Alkaline Phosphatase 57 (34-104) U/L Total Protein 6.2 L (6.4-8.9) g/dL Albumin 3.4 (3.2-5.2) g/dL Globulin 2.8 (2-4) g/dL Albumin/Globulin Ratio 1.2 (1-3) Result Diagrams: 09/06/18 23:37 09/06/18 23:37 Lab Statement: Any lab studies that have been ordered have been reviewed, and results considered in the medical decision making process. Adult Trauma Course/Dx - Course Course Of Treatment: Patient presents with daughter complaining of right wrist pain status post mechanical fall. Daughter states patient complained of neck pain and hip pain, however patient complains only of right wrist pain. Daughter states patient has history of 7-8 falls this week, and seems very overwhelmed with being caregiver to patient. Patient lives with daughter. Patient is alert and oriented. Patient states she was learning over to get something from under the kitchen sink and lost her balance. Daughter states she came in and found patient on the floor. Patient ambulates at baseline with walker, has ambulated since fall. Patient is currently on antibiotics for bilateral lower extremity cellulitis and UTI per PCP. Medical history is HTN, DM 2, CVA, CHF. Patient on Eliquis. Vital signs within normal limits. Creatinine 2.4, BUN 45, elevated from prior levels. Labs otherwise at patient baseline. X-ray right wrist negative. Admitted to the hospitalist for renal insufficiency. - Diagnoses Provider Diagnoses: Fall, Acute renal insufficiency Discharge - Sign-Out/Discharge Documenting (check all that apply): Patient Departure Patient Received Moderate/Deep Sedation with Procedure: No - Discharge Plan Condition: Stable Disposition: ADMITTED TO [facility] Referrals: Kanu Bhardwaj MD [Primary Care Provider] - - Billing Disposition and Condition Condition: STABLE Disposition: Admitted to [facility]
--- NOTE | 2018-09-07 05:54 | HP ---
CC: Dr. Kanu Bhardwaj; Dr. Davis * ADMISSION HISTORY AND PHYSICAL: DATE OF ADMISSION: 09/07/18 CHIEF COMPLAINT: Fall. HISTORY OF PRESENT ILLNESS: This is an 83-year-old female with past medical history of coronary artery disease, status post coronary artery bypass graft, congestive heart failure with a reduced ejection fraction, history of stroke without any residual deficit, hypertension, dyslipidemia, type 2 diabetes, history of SVT, atrial flutter, on anticoagulation with Eliquis, who was brought into the ER after a mechanical fall. According to the patient , she was leaning over and trying to get something under the sink and lost her balance. By the time the daughter found her, she was on the floor and this has been her 7th or 8th fall this week. So, she was concerned and overwhelmed giving care to this patient and the daughter brought her to the ER. Initially, the patient was apparently complaining of pain in the right wrist and also complained about pain in the neck and hip according to the daughter. However, the patient refuses any such pain at this point. The patient, however, did state that she was having some pain on her left shoulder during my evaluation. The patient otherwise is completely alert and oriented and she noticed that she lost more and more over the last 2 months. PAST MEDICAL HISTORY: As mentioned, hypertension, dyslipidemia, rheumatoid arthritis, [id number] diabetes, stroke in 2004 without any residual deficit, history of SVT, history of atrial flutter, history of left bundle- branch block, history of coronary artery disease, status post coronary artery bypass graft, restless leg syndrome, history of congestive heart failure with reduced ejection fraction. Most recent echocardiogram from June 2018 showed EF of 40% to 45% with left bundle-branch block. Physiology had showed coronary artery stenosis of 85% to 95%, status post bilateral endarterectomy. Recently diagnosed with UTI and cellulitis of both lower extremities. Finished a 21-day course of Levaquin recently. PAST SURGICAL HISTORY: As mentioned, bilateral endarterectomy, coronary artery bypass graft in 2018 at [facility], right shoulder surgery, left shoulder ORIF, bilateral knee arthroplasties, cholecystectomy. HOME MEDICATIONS: The patient is currently on: 1. Prozac 10 mg oral daily. 2. Methotrexate 10 mg oral weekly. 3. Folic acid 1 tablet oral every morning. 4. Prolia 60 mg subcutaneous every 6 months. 5. Vitamin B12 1000 mcg oral daily. 6. Vitamin D 5000 units oral daily. 7. Furosemide 40 mg oral daily. 8. Losartan 50 mg oral daily. 9. Eliquis 5 mg oral twice a day. 10. Amiodarone 200 mg oral daily. 11. Requip 2 mg p.o. at bedtime. 12. Amlodipine 5 mg oral daily. 13. Pantoprazole 40 mg oral daily. 14. Zolpidem 5 mg p.o. at bedtime p.r.n. for insomnia. 15. Atorvastatin 40 mg oral daily. ALLERGIES: The patient is documented to have multiple allergies including nausea and vomiting reaction to OXYCODONE, AUGMENTIN. Diarrhea to IODINE CONTRAST. Allergies to HYDROXYZINE, but unknown reaction. FAMILY HISTORY: Mother at age 59 due to an [place] and father in his 80s of unknown cause. SOCIAL HISTORY: The patient lives with her daughter Michaela Kahn who is her decision maker, phone number is [phone]. 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 REVIEW OF SYSTEMS: A 14-point review of systems did not reveal any new information other than the ones in the HPI. PHYSICAL EXAMINATION GENERAL: The patient is awake and alert, in no acute respiratory distress. VITAL SIGNS: Temperature was documented at 98.5, BP 128/64, heart rate 62, respiratory rate 16, saturating 100% on room air. HEAD AND NECK: Atraumatic. Bilateral pupils were reactive. Oral mucosa was moist. Neck supple. No jugular venous distention. LUNGS: Clear to auscultation bilaterally. No wheezing, rhonchi, or rales. HEART: S1, S2. Regular rate and rhythm. ABDOMEN: Soft, nontender, nondistended. EXTREMITIES: The patient had gilmore erythema in bilateral lower extremities. NEUROLOGIC: The patient was awake, alert, and oriented to time, place, and person. DIAGNOSTIC STUDIES/LAB DATA: CBC shows mild anemia with hemoglobin of 10.9, hematocrit of 33, platelet count minimally decreased at 86. Serum chemistry shows elevated BUN at 45, creatinine elevated at 2.44. This is significant worsening compared her baseline from 2 weeks ago, which showed creatinine of 1.48. Total bili was also minimally elevated at 1.7. X-ray of the wrist did not show any obvious fracture to my eye, although her official radiology reporting is still pending. IMPRESSION AND PLAN: This is an 83-year-old female with multiple medical problems, here after sustaining an accidental fall and a total of 7 to 8 falls over the last 1 week, likely debility, may be age related. 1. Recurrent falls, likely secondary to age-related debility. We will get physical therapy evaluation and consider the patient for a possible rehab. 2. Acute kidney injury on top of chronic kidney disease. We will follow up serum creatinine. We will hold Lasix for now, but restart rest of her cardiac medication. 3. History of congestive heart failure, currently not in any failure. We will restart home medication with the exception of Lasix as mentioned due to her elevated creatinine and follow up repeat labs. 4. History of hypertension. Restart medication. 5. History of dyslipidemia. Restart statins. 6. History of atrial fibrillation/flutter. Restart her home dose of Eliquis and amiodarone. 7. History of rheumatoid arthritis. Restart her medication. 8. History of diabetes. However, I did not put the patient on any antidiabetic medications. 9. History of coronary artery disease, status post coronary arty bypass graft. 10. History of restless leg syndrome. 11. DVT prophylaxis with the patient already being on Eliquis. [id number]/[facility] #: [id number] JONES
[2018-09-07] MEDS ORDERED: amLODIPine TAB* 5 MG PO SCH (09:00)
[2018-09-07] MEDS ORDERED: Losartan TAB* 25 MG PO SCH (09:00)
[2018-09-07] MEDS ORDERED: Apixaban* 2.5 MG TAB PO SCH (09:00)
[2018-09-07] MEDS: Atorvastatin* 40 MG TAB PO SCH (09:48)
[2018-09-07] MEDS: Cholecalciferol TAB* 1000 UNITS PO SCH (09:48)
[2018-09-07] MEDS: Amiodarone TAB* 200 MG PO SCH (09:49)
[2018-09-07] MEDS: Cyanocobalamin TAB* 500 MCG PO SCH (09:49)
[2018-09-07] MEDS: Folic Acid TAB* 1 MG PO SCH (09:49)
[2018-09-07] MEDS: Pantoprazole TAB * 40 MG TAB PO SCH (09:50)
[2018-09-07] MEDS: FLUoxetine CAP* 10 MG PO SCH (09:50)
[2018-09-07 15:03] LABS: Urine Appearance Clear; Urine Bacteria Absent (Absent); Urine Bilirubin Negative (Negative); Urine Blood Negative (Negative); Urine Color Yellow; Urine Glucose Negative (Negative); Urine Ketones Trace (Negative); Urine Nitrite Negative (Negative); Urine Protein Negative (Negative); Urine Red Blood Cell 2+(6-10/hpf) (Absent); Urine Specific Gravity 1.014 (1.010-1.030); Urine Squamous Epithelial Cell Present (Absent); Urine Urobilinogen Negative (Negative); Urine White Blood Cell 2+(11-20/hpf) (Absent)
[2018-09-07] MEDS: NS 0.9% 1000 ML** 1,000 ML IV SCH (15:26)
--- NOTE | 2018-09-07 15:47 | PN ---
Subjective Date of Service: 09/07/18 Interval History: Patient seen doing well. CT brain no bleed. no acute events. awaiting evaluation for safe disposition. She also had low BP today for which I am going to hold her amlodipine and place her on IVF Past Medical History: Unchanged from Admission Objective Active Medications: Amiodarone HCl (Cordarone Tab*) 200 mg PO DAILY [facility] Last Admin: 09/07/18 09:49 Dose: 200 mg Atorvastatin Calcium (Lipitor*) 40 mg PO DAILY [facility] Last Admin: 09/07/18 09:48 Dose: 40 mg Cholecalciferol (Vitamin D Tab*) 5,000 units PO DAILY [facility] Last Admin: 09/07/18 09:48 Dose: 5,000 units Cyanocobalamin (Vitamin B12 Tab*) 1,000 mcg PO DAILY [facility] Last Admin: 09/07/18 09:49 Dose: 1,000 mcg Fluoxetine HCl (Prozac Cap*) 10 mg PO DAILY [facility] Last Admin: 09/07/18 09:50 Dose: 10 mg Folic Acid (Folvite Tab*) 1 mg PO QAM [facility] Last Admin: 09/07/18 09:49 Dose: 1 mg Sodium Chloride (Ns 0.9% 1000 Ml) 1,000 mls @ 75 mls/hr IV .per rate [facility] Last Admin: 09/07/18 15:26 Dose: 75 mls/hr Pantoprazole Sodium (Protonix Tab*) 40 mg PO DAILY [facility] Last Admin: 09/07/18 09:50 Dose: 40 mg Ropinirole HCl (Requip Tab*) 2 mg PO BEDTIME [facility] Zolpidem Tartrate (Ambien Tab*) 5 mg PO BEDTIME PRN PRN Reason: INSOMNIA Vital Signs - 8 hr 09/07/18 09/07/18 09/07/18 07:48 08:00 11:15 Temperature 97.3 F 98 F Pulse Rate 56 61 Respiratory 16 16 16 Rate Blood Pressure 117/62 107/36 (mmHg) O2 Sat by Pulse 98 96 Oximetry 09/07/18 15:15 Temperature 98.1 F Pulse Rate 60 Respiratory 16 Rate Blood Pressure 96/34 (mmHg) O2 Sat by Pulse 97 Oximetry Oxygen Devices in Use Now: Nasal Cannula Appearance: awake, alert. pleasant no distress Eyes: No Scleral Icterus Ears/Nose/Mouth/Throat: NL Teeth, Lips, Gums, Mucous Membranes Moist Neck: Trachea Midline Respiratory: Clear to Auscultation Cardiovascular: NL Sounds; No Murmurs; No JVD, No Edema Neurological: Alert and Oriented x 3 Result Diagrams: 09/06/18 23:37 09/06/18 23:37 Additional Lab and Data: Lab Results 09/06/18 09/06/18 Range/Units 23:37 23:37 WBC 5.3 (3.5-10.8) 10^3/uL RBC 3.65 L (3.70-4.87) 10^6 /uL Hgb 10.9 L (12.0-16.0) g/dL Hct 33 L (35-47) % MCV 91 (80-97) fL MCH 30 (27-31) pg MCHC 33 (31-36) g/dL RDW 21 H (10-15) % Plt Count 86 L D (150-450) 10^3/uL MPV 10.4 (7.4-10.4) fL Neut % (Auto) 64.6 % Lymph % (Auto) 24.0 % [place] % (Auto) 10.4 % Eos % (Auto) 0.6 % Baso % (Auto) 0.4 % Absolute Neuts (auto) 3.4 (1.5-7.7) 10^3/ul Absolute Lymphs (auto) 1.3 (1.0-4.8) 10^3/ul Absolute Monos (auto) 0.5 (0-0.8) 10^3/ul Absolute Eos (auto) 0.0 (0-0.6) 10^3/ul Absolute Basos (auto) 0.0 (0-0.2) 10^3/ul Absolute Nucleated RBC 0.0 10^3/ul Nucleated RBC % 0.1 Hem Pathologist Commnt Pending Sodium 132 L (135-145) mmol/L Potassium 3.6 (3.5-5.0) mmol/L Chloride 94 L (101-111) mmol/L Carbon Dioxide 30 (22-32) mmol/L Anion Gap 8 (2-11) mmol/L BUN 45 H (6-24) mg/dL Creatinine 2.44 H (0.51-0.95) mg/dL Est GFR ( Amer) 23.0 (>60) Est GFR (Non-Af Amer) 19.0 (>60) BUN/Creatinine Ratio 18.4 (8-20) Glucose 110 H (70-100) mg/dL Calcium 10.2 (8.6-10.3) mg/dL Total Bilirubin 1.70 H (0.2-1.0) mg/dL AST 33 (13-39) U/L ALT 16 (7-52) U/L Alkaline Phosphatase 57 (34-104) U/L Total Protein 6.2 L (6.4-8.9) g/dL Albumin 3.4 (3.2-5.2) g/dL Globulin 2.8 (2-4) g/dL Albumin/Globulin Ratio 1.2 (1-3) Assess/Plan/Problems-Billing Assessment: 83 y/o female admitted for reccurent fall and weakness and found to have MARY - Patient Problems (1) MARY (acute kidney injury) Current Visit: Yes Status: Acute Code(s): N17.9 - ACUTE KIDNEY FAILURE, UNSPECIFIED SNOMED Code(s): 76287691 Comment: - Will D/c Cozzar and amlodipine for Hypotension and MARY - IVF today and recheck in am (2) Recurrent falls Current Visit: Yes Status: Acute Code(s): R29.6 - REPEATED FALLS SNOMED Code(s): 361494261 Comment: - CT head no bleed as she is on eliquis - PT and potential subacute rehab (3) Atrial flutter Current Visit: No Status: Acute Code(s): I48.92 - UNSPECIFIED ATRIAL FLUTTER SNOMED Code(s): 8599559 Comment: - h/o svt and a flutter; s/p PPM, will continue amiodarone - I held eliquis for today given acute thrombocytopenia past one month - Recheck in am and if it resovled than probably lab error, if it continue to drop will need to revisit benefit risk of anticoagulation in the setting of reccurent fall and low platelet (4) Rheumatoid arthritis Current Visit: No Status: Acute Code(s): M06.9 - RHEUMATOID ARTHRITIS, UNSPECIFIED SNOMED Code(s): 94724549 Comment: - Continue weekly MTX once discharged (5) CVA (cerebral vascular accident) Current Visit: No Status: Chronic Code(s): I63.9 - CEREBRAL INFARCTION, UNSPECIFIED SNOMED Code(s): 199400758 Comment: - hx of CVA with underlying afib/flutter - I did hold eliquis for today given thrombocytopenia, and history of reccurent falls. will re-evaluate CBC in am and discuss benefit risk of anticoagulatin with recurrent falls. (6) Elevated cholesterol Current Visit: No Status: Chronic Code(s): E78.0 - PURE HYPERCHOLESTEROLEMIA * DO NOT USE * SNOMED Code(s): 84766626 Comment: - atorvatstatin 40 mg HS (7) HTN (hypertension) Current Visit: No Status: Chronic Code(s): I10 - ESSENTIAL (PRIMARY) HYPERTENSION SNOMED Code(s): 06170550 Comment: BP low today, hence I held her amlodipine and losartan. on IVF and recheck in am (8) Type 2 diabetes mellitus Current Visit: No Status: Chronic Comment: will place her on SS QAC+HS (9) DVT prophylaxis Current Visit: No Status: Acute Code(s): Z29.9 - ENCOUNTER FOR PROPHYLACTIC MEASURES, UNSPECIFIED SNOMED Code(s): 193837047 Comment: - Off eliquis will re-evaluate in am if need to restart
[2018-09-07] MEDS: Zolpidem TAB* 10 MG PO PRN (22:09)
[2018-09-07] MEDS: rOPINIRole TAB* 1 MG PO SCH (22:10)
[2018-09-08 06:22] LABS: Hematocrit 27 % (35-47); Mean Corpuscular HGB Conc 33 g/dL (31-36); Mean Corpuscular Hemoglobin 30 pg (27-31); Mean Corpuscular Volume 92 fL (80-97); Platelet Count 69 10^3/uL (150-450); Red Blood Count 2.96 10^6 /uL (3.70-4.87); Red Cell Distribution Width 21 % (10-15)
[2018-09-08 06:43] LABS: Albumin 2.6 g/dL (3.2-5.2); Albumin/Globulin Ratio 1.2 (1-3); BUN/Creatinine Ratio 24.2 (8-20); Calcium 8.9 mg/dL (8.6-10.3); EGFR African American 36.1 (>60); EGFR Non-African American 29.9 (>60); Globulin 2.1 g/dL (2-4); Phosphorus 2.7 mg/dL (2.5-5.0); Potassium 3.4 mmol/L (3.5-5.0); Total Protein 4.7 g/dL (6.4-8.9)
[2018-09-08 06:46] LABS: Magnesium 0.8 mg/dL (1.9-2.7)
[2018-09-08 07:32] LABS: ABS Eosinophils 0.1 10^3/ul (0-0.6); ABS Monocytes 0.6 10^3/ul (0-0.8); ABS Neutrophils 2.3 10^3/ul (1.5-7.7); Eosinophil % 1.2 %; Lymphocyte % 41.3 %; Nucleated Red Blood Cells % 0.1
[2018-09-08] MEDS: Cholecalciferol TAB* 1000 UNITS PO SCH (08:48)
[2018-09-08] MEDS: Folic Acid TAB* 1 MG PO SCH (08:48)
[2018-09-08] MEDS: FLUoxetine CAP* 10 MG PO SCH (08:48)
[2018-09-08] MEDS: Cyanocobalamin TAB* 500 MCG PO SCH (08:48)
[2018-09-08] MEDS: Pantoprazole TAB * 40 MG TAB PO SCH (08:48)
[2018-09-08] MEDS: Amiodarone TAB* 200 MG PO SCH (08:48)
[2018-09-08] MEDS: Atorvastatin* 40 MG TAB PO SCH (08:48)
[2018-09-08] MEDS: NS 0.9% 1000 ML** 1,000 ML IV SCH (08:50)
[2018-09-08] MEDS ORDERED: Magnesium Sulfate 2 GM IV* 2 GM/50 ML BAG IVPB ONE ×2 (09:56→13:23)
[2018-09-08] MEDS ORDERED: Potassium Chlor TAB* 20 MEQ TAB.ER PO ONE (09:57)
--- NOTE | 2018-09-08 14:51 | PN ---
Subjective Date of Service: 09/08/18 Interval History: Patient seen this morning in the room, she denies any complains. Her magnesium was 0.8 this morning. supplemented. K+ 3.4 supplemented. The daughter was inquiring about the antibiotics that she was suppose to be taking at home for her "UTI and Leg infection". Also on further questioning with the daughter, she stated that the patient was recently started on "antibiotic" and Prozac about a 10 days ago. Also she gives me a history of recent increase episode of fall this past week (8 falls this week before). the daughter is unable to comment if the patient lost consciousness or not but the patient herself denies loss of consciousness. simply dizziness Past Medical History: Unchanged from Admission Objective Active Medications: Amiodarone HCl (Cordarone Tab*) 200 mg PO DAILY [facility] Last Admin: 09/08/18 08:48 Dose: 200 mg Atorvastatin Calcium (Lipitor*) 40 mg PO DAILY [facility] Last Admin: 09/08/18 08:48 Dose: 40 mg Cholecalciferol (Vitamin D Tab*) 5,000 units PO DAILY [facility] Last Admin: 09/08/18 08:48 Dose: 5,000 units Cyanocobalamin (Vitamin B12 Tab*) 1,000 mcg PO DAILY [facility] Last Admin: 09/08/18 08:48 Dose: 1,000 mcg Fluoxetine HCl (Prozac Cap*) 10 mg PO DAILY [facility] Last Admin: 09/08/18 08:48 Dose: 10 mg Folic Acid (Folvite Tab*) 1 mg PO QAM [facility] Last Admin: 09/08/18 08:48 Dose: 1 mg Sodium Chloride (Ns 0.9% 1000 Ml) 1,000 mls @ 75 mls/hr IV .per rate [facility] Last Admin: 09/08/18 08:50 Dose: 75 mls/hr Pantoprazole Sodium (Protonix Tab*) 40 mg PO DAILY [facility] Last Admin: 09/08/18 08:48 Dose: 40 mg Ropinirole HCl (Requip Tab*) 2 mg PO BEDTIME [facility] Last Admin: 09/07/18 22:10 Dose: 2 mg Zolpidem Tartrate (Ambien Tab*) 5 mg PO BEDTIME PRN PRN Reason: INSOMNIA Last Admin: 09/07/18 22:09 Dose: 5 mg Vital Signs - 8 hr 09/08/18 09/08/18 09/08/18 07:36 08:12 11:07 Temperature 98.1 F 97.5 F Pulse Rate 62 61 Respiratory 18 18 16 Rate Blood Pressure 110/58 102/50 (mmHg) O2 Sat by Pulse 95 99 Oximetry Oxygen Devices in Use Now: Nasal Cannula Appearance: awake, alert oriented to time and place Eyes: No Scleral Icterus, - - EOMI Ears/Nose/Mouth/Throat: NL Teeth, Lips, Gums, Mucous Membranes Moist Neck: NL Appearance and Movements; NL JVP, Trachea Midline Respiratory: Symmetrical Chest Expansion and Respiratory Effort, Clear to Auscultation Cardiovascular: NL Sounds; No Murmurs; No JVD, - - +2 edema Abdominal: NL Sounds; No Tenderness; No Distention Extremities: - - + edema, small erythema on both lower leg distally. not warm Neurological: Alert and Oriented x 3 Result Diagrams: 09/08/18 05:10 09/08/18 05:10 Additional Lab and Data: Lab Results 09/06/18 09/06/18 Range/Units 23:37 23:37 WBC 5.3 (3.5-10.8) 10^3/uL RBC 3.65 L (3.70-4.87) 10^6 /uL Hgb 10.9 L (12.0-16.0) g/dL Hct 33 L (35-47) % MCV 91 (80-97) fL MCH 30 (27-31) pg MCHC 33 (31-36) g/dL RDW 21 H (10-15) % Plt Count 86 L D (150-450) 10^3/uL MPV 10.4 (7.4-10.4) fL Neut % (Auto) 64.6 % Lymph % (Auto) 24.0 % Upson % (Auto) 10.4 % Eos % (Auto) 0.6 % Baso % (Auto) 0.4 % Absolute Neuts (auto) 3.4 (1.5-7.7) 10^3/ul Absolute Lymphs (auto) 1.3 (1.0-4.8) 10^3/ul Absolute Monos (auto) 0.5 (0-0.8) 10^3/ul Absolute Eos (auto) 0.0 (0-0.6) 10^3/ul Absolute Basos (auto) 0.0 (0-0.2) 10^3/ul Absolute Nucleated RBC 0.0 10^3/ul Nucleated RBC % 0.1 Hem Pathologist Commnt Pending Sodium 132 L (135-145) mmol/L Potassium 3.6 (3.5-5.0) mmol/L Chloride 94 L (101-111) mmol/L Carbon Dioxide 30 (22-32) mmol/L Anion Gap 8 (2-11) mmol/L BUN 45 H (6-24) mg/dL Creatinine 2.44 H (0.51-0.95) mg/dL Est GFR ( Amer) 23.0 (>60) Est GFR (Non-Af Amer) 19.0 (>60) BUN/Creatinine Ratio 18.4 (8-20) Glucose 110 H (70-100) mg/dL Calcium 10.2 (8.6-10.3) mg/dL Total Bilirubin 1.70 H (0.2-1.0) mg/dL AST 33 (13-39) U/L ALT 16 (7-52) U/L Alkaline Phosphatase 57 (34-104) U/L Total Protein 6.2 L (6.4-8.9) g/dL Albumin 3.4 (3.2-5.2) g/dL Globulin 2.8 (2-4) g/dL Albumin/Globulin Ratio 1.2 (1-3) Microbiology and Other Data: Microbiology 09/07/18 00:01 Urine Culture - Final Urine Assess/Plan/Problems-Billing Assessment: 83 y/o female admitted for reccurent fall and weakness and found to have MARY - Patient Problems (1) Thrombocytopenia Current Visit: Yes Status: Acute Code(s): D69.6 - THROMBOCYTOPENIA, UNSPECIFIED SNOMED Code(s): 822512537 Comment: - progressively getting worse. - Not on any heparin product. Hold Xaretlo due to risk of bleed. - recheck in am and possible hematology consult (2) MARY (acute kidney injury) Current Visit: Yes Status: Acute Code(s): N17.9 - ACUTE KIDNEY FAILURE, UNSPECIFIED SNOMED Code(s): 10962504 Comment: - off Cozzar and amlodipine for Hypotension and MARY - continue IVF for another 24hrs and recheck in am (3) Recurrent falls Current Visit: Yes Status: Acute Code(s): R29.6 - REPEATED FALLS SNOMED Code(s): 203324643 Comment: - CT head no bleed as she is on Xaretlo at home (not eliquis) - PT and potential subacute rehab - Given the history provided/Obtained today by talking to her daughter (new Rx for Abx and prozac... Followed by 8 episodes of falls...she may have had some tacchy-michelle... QTc induced arrhtytmia. ) No EKG on admission. I will obtain her EKG today. Will keep her off antiboitc (which have been stopped from admission). Pending her EKG I may stop or continue her prozac. (4) Atrial flutter Current Visit: No Status: Acute Code(s): I48.92 - UNSPECIFIED ATRIAL FLUTTER SNOMED Code(s): 4167685 Comment: - h/o svt and a flutter; s/p PPM, will continue amiodarone - I held xaretlo for today given acute thrombocytopenia past one month - Recheck in am and if it resovled than probably lab error, if it continue to drop will need to revisit benefit risk of anticoagulation in the setting of reccurent fall and low platelet (5) Rheumatoid arthritis Current Visit: No Status: Acute Code(s): M06.9 - RHEUMATOID ARTHRITIS, UNSPECIFIED SNOMED Code(s): 84941325 Comment: - MTX on hold (6) CVA (cerebral vascular accident) Current Visit: No Status: Chronic Code(s): I63.9 - CEREBRAL INFARCTION, UNSPECIFIED SNOMED Code(s): 856624504 Comment: - hx of CVA with underlying afib/flutter - I did hold xaretlo given thrombocytopenia, and history of reccurent falls. will re-evaluate CBC in am and discuss benefit risk of anticoagulatin with recurrent falls. (7) Elevated cholesterol Current Visit: No Status: Chronic Code(s): E78.0 - PURE HYPERCHOLESTEROLEMIA * DO NOT USE * SNOMED Code(s): 19067476 Comment: - atorvatstatin 40 mg HS (8) HTN (hypertension) Current Visit: No Status: Chronic Code(s): I10 - ESSENTIAL (PRIMARY) HYPERTENSION SNOMED Code(s): 45809156 Comment: I held her amlodipine and losartan given low BP. on IVF and recheck in am (9) Type 2 diabetes mellitus Current Visit: No Status: Chronic Comment: will place her on SS QAC+HS (10) DVT prophylaxis Current Visit: No Status: Acute Code(s): Z29.9 - ENCOUNTER FOR PROPHYLACTIC MEASURES, UNSPECIFIED SNOMED Code(s): 000915178 Comment: - Off eliquis will re-evaluate in am if need to restart
[2018-09-08 18:15] LABS: BUN/Creatinine Ratio 26.6 (8-20); Calcium 9.6 mg/dL (8.6-10.3); EGFR Non-African American 36.4 (>60); Potassium 4.1 mmol/L (3.5-5.0)
[2018-09-08] MEDS: Zolpidem TAB* 10 MG PO PRN (21:48)
[2018-09-08] MEDS: rOPINIRole TAB* 1 MG PO SCH (21:49)
[2018-09-09 05:47] LABS: ABS Eosinophils 0.1 10^3/ul (0-0.6); ABS Lymphocytes 1.7 10^3/ul (1.0-4.8); ABS Monocytes 0.4 10^3/ul (0-0.8); ABS Neutrophils 2.2 10^3/ul (1.5-7.7); Eosinophil % 1.6 %; Hematocrit 28 % (35-47); Hemoglobin 9.4 g/dL (12.0-16.0); Lymphocyte % 38.7 %; Mean Corpuscular HGB Conc 34 g/dL (31-36); Mean Corpuscular Hemoglobin 31 pg (27-31); Mean Corpuscular Volume 92 fL (80-97); Mean Platelet Volume 11.2 fL (7.4-10.4); Nucleated Red Blood Cells % 0.1; Platelet Count 83 10^3/uL (150-450); Red Blood Count 3.03 10^6 /uL (3.70-4.87); Red Cell Distribution Width 21 % (10-15); White Blood Count 4.4 10^3/uL (3.5-10.8)
[2018-09-09 05:59] LABS: BUN/Creatinine Ratio 28.4 (8-20); Calcium 9.4 mg/dL (8.6-10.3); EGFR African American 54.3 (>60); EGFR Non-African American 44.8 (>60); Magnesium 1.5 mg/dL (1.9-2.7); Phosphorus 2.3 mg/dL (2.5-5.0); Potassium 4.2 mmol/L (3.5-5.0)
[2018-09-09] MEDS ORDERED: Magnesium Sulfate 2 GM IV* 2 GM/50 ML BAG IVPB ONE (08:31)
[2018-09-09] MEDS ORDERED: Magnesium Sulfate 2 GM IV* 2 GM/50 ML BAG ONE (08:59)
[2018-09-09] MEDS: Cholecalciferol TAB* 1000 UNITS PO SCH (09:03)
[2018-09-09] MEDS: Amiodarone TAB* 200 MG PO SCH (09:04)
[2018-09-09] MEDS: FLUoxetine CAP* 10 MG PO SCH (09:04)
[2018-09-09] MEDS: Pantoprazole TAB * 40 MG TAB PO SCH (09:04)
[2018-09-09] MEDS: Folic Acid TAB* 1 MG PO SCH (09:04)
[2018-09-09] MEDS: Cyanocobalamin TAB* 500 MCG PO SCH (09:04)
[2018-09-09] MEDS: Atorvastatin* 40 MG TAB PO SCH (09:04)
[2018-09-09] MEDS: NS 0.9% 1000 ML** 1,000 ML IV SCH ×2 (15:37)
--- NOTE | 2018-09-09 16:49 | PN ---
Subjective Date of Service: 09/09/18 Interval History: Denies chest pain or shortness of breath. Denies fever or chills. Denies abd pain n/v/d. PT recommended Skilled PT at discharge Family History: Unchanged from Admission Social History: Unchanged from Admission Past Medical History: Unchanged from Admission Objective Active Medications: Amiodarone HCl (Cordarone Tab*) 200 mg PO DAILY [facility] Last Admin: 09/09/18 09:04 Dose: 200 mg Atorvastatin Calcium (Lipitor*) 40 mg PO DAILY [facility] Last Admin: 09/09/18 09:04 Dose: 40 mg Cholecalciferol (Vitamin D Tab*) 5,000 units PO DAILY [facility] Last Admin: 09/09/18 09:03 Dose: 5,000 units Cyanocobalamin (Vitamin B12 Tab*) 1,000 mcg PO DAILY [facility] Last Admin: 09/09/18 09:04 Dose: 1,000 mcg Fluoxetine HCl (Prozac Cap*) 10 mg PO DAILY [facility] Last Admin: 09/09/18 09:04 Dose: 10 mg Folic Acid (Folvite Tab*) 1 mg PO QAM [facility] Last Admin: 09/09/18 09:04 Dose: 1 mg Sodium Chloride (Ns 0.9% 1000 Ml) 1,000 mls @ 75 mls/hr IV .per rate [facility] Last Admin: 09/09/18 15:37 Dose: 75 mls/hr Pantoprazole Sodium (Protonix Tab*) 40 mg PO DAILY [facility] Last Admin: 09/09/18 09:04 Dose: 40 mg Ropinirole HCl (Requip Tab*) 2 mg PO BEDTIME [facility] Last Admin: 09/08/18 21:49 Dose: 2 mg Zolpidem Tartrate (Ambien Tab*) 5 mg PO BEDTIME PRN PRN Reason: INSOMNIA Last Admin: 09/08/18 21:48 Dose: 5 mg Vital Signs - 8 hr 09/09/18 09/09/18 11:26 15:11 Temperature 97.8 F 97.4 F Pulse Rate 60 86 Respiratory 16 18 Rate Blood Pressure 123/40 158/83 (mmHg) O2 Sat by Pulse 98 100 Oximetry Oxygen Devices in Use Now: Nasal Cannula Appearance: alert , resting in bed , no acute distress Eyes: No Scleral Icterus Ears/Nose/Mouth/Throat: Clear Oropharnyx, Mucous Membranes Moist Neck: NL Appearance and Movements; NL JVP, Trachea Midline Respiratory: Symmetrical Chest Expansion and Respiratory Effort, Clear to Auscultation Cardiovascular: NL Sounds; No Murmurs; No JVD, No Edema Abdominal: NL Sounds; No Tenderness; No Distention Extremities: No Edema, No Clubbing, Cyanosis, - - slight non-pitting edema to lower ext. Skin: No Rash or Ulcers Neurological: Alert and Oriented x 3 Result Diagrams: 09/10/18 05:12 09/10/18 05:12 Additional Lab and Data: Lab Results 09/06/18 09/06/18 Range/Units 23:37 23:37 WBC 5.3 (3.5-10.8) 10^3/uL RBC 3.65 L (3.70-4.87) 10^6 /uL Hgb 10.9 L (12.0-16.0) g/dL Hct 33 L (35-47) % MCV 91 (80-97) fL MCH 30 (27-31) pg MCHC 33 (31-36) g/dL RDW 21 H (10-15) % Plt Count 86 L D (150-450) 10^3/uL MPV 10.4 (7.4-10.4) fL Neut % (Auto) 64.6 % Lymph % (Auto) 24.0 % Bradford % (Auto) 10.4 % Eos % (Auto) 0.6 % Baso % (Auto) 0.4 % Absolute Neuts (auto) 3.4 (1.5-7.7) 10^3/ul Absolute Lymphs (auto) 1.3 (1.0-4.8) 10^3/ul Absolute Monos (auto) 0.5 (0-0.8) 10^3/ul Absolute Eos (auto) 0.0 (0-0.6) 10^3/ul Absolute Basos (auto) 0.0 (0-0.2) 10^3/ul Absolute Nucleated RBC 0.0 10^3/ul Nucleated RBC % 0.1 Hem Pathologist Commnt Pending Sodium 132 L (135-145) mmol/L Potassium 3.6 (3.5-5.0) mmol/L Chloride 94 L (101-111) mmol/L Carbon Dioxide 30 (22-32) mmol/L Anion Gap 8 (2-11) mmol/L BUN 45 H (6-24) mg/dL Creatinine 2.44 H (0.51-0.95) mg/dL Est GFR ( Amer) 23.0 (>60) Est GFR (Non-Af Amer) 19.0 (>60) BUN/Creatinine Ratio 18.4 (8-20) Glucose 110 H (70-100) mg/dL Calcium 10.2 (8.6-10.3) mg/dL Total Bilirubin 1.70 H (0.2-1.0) mg/dL AST 33 (13-39) U/L ALT 16 (7-52) U/L Alkaline Phosphatase 57 (34-104) U/L Total Protein 6.2 L (6.4-8.9) g/dL Albumin 3.4 (3.2-5.2) g/dL Globulin 2.8 (2-4) g/dL Albumin/Globulin Ratio 1.2 (1-3) Microbiology and Other Data: Microbiology 09/07/18 00:01 Urine Culture - Final Urine Assess/Plan/Problems-Billing Assessment: 83 y/o female admitted for reccurent fall and weakness and found to have MARY - Patient Problems (1) Recurrent falls Current Visit: Yes Status: Acute Code(s): R29.6 - REPEATED FALLS SNOMED Code(s): 541838971 Comment: - CT head no bleed as she is on Xaretlo at home (not eliquis) - PT and potential subacute rehab - Given the history provided/Obtained today by talking to her daughter (new Rx for Abx and prozac... Followed by 8 episodes of falls...she may have had some tacchy-michelle... QTc induced arrhtytmia. ) No EKG on admission. EKG - Showed paced with LBBB consistent with previous EKG's, QTC 483. - Will keep her off antiboitc (which have been stopped from admission). - will continue prozac (2) Thrombocytopenia Current Visit: Yes Status: Acute Code(s): D69.6 - THROMBOCYTOPENIA, UNSPECIFIED SNOMED Code(s): 459456712 Comment: - progressively getting worse. - Not on any heparin product. Hold xarelto due to risk of bleed.- dtr reports that the patient recently had dose reduced by primary cardiology to 15mg daily - Plt increased to 83 today - will recheck in am (3) MARY (acute kidney injury) Current Visit: Yes Status: Acute Code(s): N17.9 - ACUTE KIDNEY FAILURE, UNSPECIFIED SNOMED Code(s): 53181577 Comment: - off Cozzar and amlodipine for Hypotension and MARY - Bun and creatinine improved - will stop IVF - repeat BMP in the AM (4) Atrial flutter Current Visit: No Status: Acute Code(s): I48.92 - UNSPECIFIED ATRIAL FLUTTER SNOMED Code(s): 8633253 Comment: - h/o svt and a flutter; s/p PPM, will continue amiodarone - xarelto stopped yesterday- given acute thrombocytopenia past one month - Plt 83, improved from yesterday - will repeat tomorrow - risk of anticoagulation in the setting of reccurent fall and low platelet (5) Type 2 diabetes mellitus Current Visit: No Status: Chronic Comment: fingerstick AC - patient is not diabetic medications at home (6) DVT prophylaxis Current Visit: No Status: Acute Code(s): Z29.9 - ENCOUNTER FOR PROPHYLACTIC MEASURES, UNSPECIFIED SNOMED Code(s): 735234665 Comment: - off xarelto - platelets low - SCD's (7) Full code status Current Visit: Yes Status: Acute Code(s): Z78.9 - OTHER SPECIFIED HEALTH STATUS SNOMED Code(s): 747433943 Status and Disposition: will likely need skilled PT at discharge
[2018-09-09] MEDS: rOPINIRole TAB* 1 MG PO SCH (21:37)
[2018-09-10 05:55] LABS: Hematocrit 26 % (35-47); Hemoglobin 8.8 g/dL (12.0-16.0); Mean Corpuscular HGB Conc 34 g/dL (31-36); Mean Corpuscular Hemoglobin 31 pg (27-31); Mean Corpuscular Volume 92 fL (80-97); Mean Platelet Volume 10.3 fL (7.4-10.4); Platelet Count 96 10^3/uL (150-450); Red Blood Count 2.83 10^6 /uL (3.70-4.87); Red Cell Distribution Width 21 % (10-15); White Blood Count 4.2 10^3/uL (3.5-10.8)
[2018-09-10 06:00] LABS: Calcium 9.6 mg/dL (8.6-10.3); Magnesium 1.5 mg/dL (1.9-2.7); Potassium 4.4 mmol/L (3.5-5.0)
[2018-09-10 06:06] LABS: BUN/Creatinine Ratio 26.3 (8-20); EGFR African American 68.3 (>60); EGFR Non-African American 56.5 (>60)
[2018-09-10] MEDS ORDERED: Magnesium Sulfate IV* 3 GM in NS 0.9% 100 ML* 100 ML IVPB ONE (08:19)
[2018-09-10] MEDS: Cholecalciferol TAB* 1000 UNITS PO SCH (09:27)
[2018-09-10] MEDS: Folic Acid TAB* 1 MG PO SCH (09:28)
[2018-09-10] MEDS: Cyanocobalamin TAB* 500 MCG PO SCH (09:28)
[2018-09-10] MEDS: Amiodarone TAB* 200 MG PO SCH (09:28)
[2018-09-10] MEDS: FLUoxetine CAP* 10 MG PO SCH (09:28)
[2018-09-10] MEDS: Atorvastatin* 40 MG TAB PO SCH (09:28)
[2018-09-10] MEDS: Pantoprazole TAB * 40 MG TAB PO SCH (09:28)
[2018-09-10] MEDS: rOPINIRole TAB* 1 MG PO SCH (20:11)
[2018-09-10] MEDS: Zolpidem TAB* 5 MG PO PRN (20:11)
--- NOTE | 2018-09-10 23:33 | PN ---
Subjective Date of Service: 09/10/18 Interval History: no complaints today. Denies chest pain or shortness of breath. denies abd pain n/v/d. Denies fever or chills Family History: Unchanged from Admission Social History: Unchanged from Admission Past Medical History: Unchanged from Admission Objective Active Medications: Amiodarone HCl (Cordarone Tab*) 200 mg PO DAILY [facility] Last Admin: 09/10/18 09:28 Dose: 200 mg Atorvastatin Calcium (Lipitor*) 40 mg PO DAILY [facility] Last Admin: 09/10/18 09:28 Dose: 40 mg Cholecalciferol (Vitamin D Tab*) 5,000 units PO DAILY [facility] Last Admin: 09/10/18 09:27 Dose: 5,000 units Cyanocobalamin (Vitamin B12 Tab*) 1,000 mcg PO DAILY [facility] Last Admin: 09/10/18 09:28 Dose: 1,000 mcg Fluoxetine HCl (Prozac Cap*) 10 mg PO DAILY [facility] Last Admin: 09/10/18 09:28 Dose: 10 mg Folic Acid (Folvite Tab*) 1 mg PO QAM [facility] Last Admin: 09/10/18 09:28 Dose: 1 mg Magnesium Oxide (Magox 400 Tab*) 400 mg PO DAILY [facility] Pantoprazole Sodium (Protonix Tab*) 40 mg PO DAILY [facility] Last Admin: 09/10/18 09:28 Dose: 40 mg Ropinirole HCl (Requip Tab*) 2 mg PO BEDTIME [facility] Last Admin: 09/10/18 20:11 Dose: 2 mg Zolpidem Tartrate (Ambien Tab*) 5 mg PO BEDTIME PRN PRN Reason: INSOMNIA Last Admin: 09/10/18 20:11 Dose: 5 mg Vital Signs - 8 hr 09/10/18 09/10/18 19:15 20:00 Temperature 97.4 F Pulse Rate 63 Respiratory 20 18 Rate Blood Pressure 126/39 (mmHg) O2 Sat by Pulse 100 Oximetry Oxygen Devices in Use Now: Nasal Cannula Appearance: alert , no acute distress Eyes: No Scleral Icterus Ears/Nose/Mouth/Throat: Clear Oropharnyx, Mucous Membranes Moist Neck: NL Appearance and Movements; NL JVP, Trachea Midline Respiratory: Symmetrical Chest Expansion and Respiratory Effort, Clear to Auscultation Cardiovascular: NL Sounds; No Murmurs; No JVD, No Edema Abdominal: NL Sounds; No Tenderness; No Distention Extremities: No Clubbing, Cyanosis Skin: No Rash or Ulcers Neurological: Alert and Oriented x 3 Nutrition: Taking PO's Result Diagrams: 09/10/18 05:12 09/10/18 05:12 Additional Lab and Data: Lab Results 09/06/18 09/06/18 Range/Units 23:37 23:37 WBC 5.3 (3.5-10.8) 10^3/uL RBC 3.65 L (3.70-4.87) 10^6 /uL Hgb 10.9 L (12.0-16.0) g/dL Hct 33 L (35-47) % MCV 91 (80-97) fL MCH 30 (27-31) pg MCHC 33 (31-36) g/dL RDW 21 H (10-15) % Plt Count 86 L D (150-450) 10^3/uL MPV 10.4 (7.4-10.4) fL Neut % (Auto) 64.6 % Lymph % (Auto) 24.0 % Mccormick % (Auto) 10.4 % Eos % (Auto) 0.6 % Baso % (Auto) 0.4 % Absolute Neuts (auto) 3.4 (1.5-7.7) 10^3/ul Absolute Lymphs (auto) 1.3 (1.0-4.8) 10^3/ul Absolute Monos (auto) 0.5 (0-0.8) 10^3/ul Absolute Eos (auto) 0.0 (0-0.6) 10^3/ul Absolute Basos (auto) 0.0 (0-0.2) 10^3/ul Absolute Nucleated RBC 0.0 10^3/ul Nucleated RBC % 0.1 Hem Pathologist Commnt Pending Sodium 132 L (135-145) mmol/L Potassium 3.6 (3.5-5.0) mmol/L Chloride 94 L (101-111) mmol/L Carbon Dioxide 30 (22-32) mmol/L Anion Gap 8 (2-11) mmol/L BUN 45 H (6-24) mg/dL Creatinine 2.44 H (0.51-0.95) mg/dL Est GFR ( Amer) 23.0 (>60) Est GFR (Non-Af Amer) 19.0 (>60) BUN/Creatinine Ratio 18.4 (8-20) Glucose 110 H (70-100) mg/dL Calcium 10.2 (8.6-10.3) mg/dL Total Bilirubin 1.70 H (0.2-1.0) mg/dL AST 33 (13-39) U/L ALT 16 (7-52) U/L Alkaline Phosphatase 57 (34-104) U/L Total Protein 6.2 L (6.4-8.9) g/dL Albumin 3.4 (3.2-5.2) g/dL Globulin 2.8 (2-4) g/dL Albumin/Globulin Ratio 1.2 (1-3) Microbiology and Other Data: Microbiology 09/07/18 00:01 Urine Culture - Final Urine Assess/Plan/Problems-Billing Assessment: 83 y/o female admitted for reccurent fall and weakness and found to have MARY - Patient Problems (1) Recurrent falls Current Visit: Yes Status: Acute Code(s): R29.6 - REPEATED FALLS SNOMED Code(s): 085086796 Comment: - CT head no bleed as she is on Xaretlo at home (not eliquis) - PT and potential subacute rehab - Given the history provided/Obtained today by talking to her daughter (new Rx for Abx and prozac... Followed by 8 episodes of falls...she may have had some tacchy-michelle... QTc induced arrhtytmia. ) No EKG on admission. EKG - Showed paced with LBBB consistent with previous EKG's, QTC 483. - Will keep her off antiboitc (which have been stopped from admission). - will continue prozac (2) Thrombocytopenia Current Visit: Yes Status: Acute Code(s): D69.6 - THROMBOCYTOPENIA, UNSPECIFIED SNOMED Code(s): 566052410 Comment: - progressively getting worse- now improving - Not on any heparin product. Hold xarelto due to risk of bleed.- dtr reports that the patient recently had dose reduced by primary cardiology to 15mg daily - spoke to Dr. 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 Davis as an outpatient for pacemaker interrogation and to discuss resuming xarelto. - at this point risks of taking xarelto outweight the benefit - d/t fall, thrombocytopenia and increased risk of bleeding - Plt increased to 93 today - will recheck in am (3) MARY (acute kidney injury) Current Visit: Yes Status: Acute Code(s): N17.9 - ACUTE KIDNEY FAILURE, UNSPECIFIED SNOMED Code(s): 07280621 Comment: - off Cozzar and amlodipine for Hypotension and MARY - Bun and creatinine improved - will stop IVF - repeat BMP in the AM (4) Atrial flutter Current Visit: No Status: Acute Code(s): I48.92 - UNSPECIFIED ATRIAL FLUTTER SNOMED Code(s): 8240929 Comment: - h/o svt and a flutter; s/p PPM, will continue amiodarone - xarelto stopped yesterday- given acute thrombocytopenia past one month - Plt 93, improved from yesterday - will repeat tomorrow - risk of anticoagulation in the setting of reccurent fall and low platelet- ok to stop for now per Dr. Davis (5) Type 2 diabetes mellitus Current Visit: No Status: Chronic Comment: fingerstick AC - patient is not diabetic medications at home (6) DVT prophylaxis Current Visit: No Status: Acute Code(s): Z29.9 - ENCOUNTER FOR PROPHYLACTIC MEASURES, UNSPECIFIED SNOMED Code(s): 273037876 Comment: - off xarelto - platelets low - SCD's (7) Full code status Current Visit: Yes Status: Acute Code(s): Z78.9 - OTHER SPECIFIED HEALTH STATUS SNOMED Code(s): 489798671 Status and Disposition: will likely need skilled PT at discharge
[2018-09-11 07:04] LABS: Anion Gap 4 mmol/L (2-11); CO2 Carbon Dioxide 26 mmol/L (22-32); Calcium 9.9 mg/dL (8.6-10.3); Chloride 103 mmol/L (101-111); Magnesium 1.5 mg/dL (1.9-2.7); Potassium 4.4 mmol/L (3.5-5.0); Sodium 133 mmol/L (135-145)
[2018-09-11 07:09] LABS: BUN/Creatinine Ratio 23.2 (8-20); Blood Urea Nitrogen 19 mg/dL (6-24); EGFR Non-African American 66.9 (>60); Glucose 85 mg/dL (70-100)
[2018-09-11 07:10] LABS: Hematocrit 26 % (35-47); Hemoglobin 8.8 g/dL (12.0-16.0); Mean Corpuscular HGB Conc 34 g/dL (31-36); Mean Corpuscular Hemoglobin 31 pg (27-31); Mean Corpuscular Volume 92 fL (80-97); Mean Platelet Volume 10.4 fL (7.4-10.4); Platelet Count 99 10^3/uL (150-450); Red Blood Count 2.86 10^6 /uL (3.70-4.87); Red Cell Distribution Width 21 % (10-15); White Blood Count 4.6 10^3/uL (3.5-10.8)
[2018-09-11 07:22] LABS: % Iron Saturation 25 % (15-55); Iron 68 ug/dL (50-212); Total Iron Binding Capacity 274 mcg/dL (250-450); Transferrin 196 mg/dL (203-362)
[2018-09-11 07:42] LABS: Ferritin 52.5 ng/mL (11-307)
[2018-09-11 07:46] LABS: Folate > 20.00 ng/mL (>3.99)
[2018-09-11] MEDS ORDERED: Magnesium Oxide TAB* 400 MG PO SCH (09:00)
[2018-09-11] MEDS ORDERED: Magnesium Sulfate IV* 3 GM in NS 0.9% 100 ML* 100 ML IVPB ONE (09:15)
[2018-09-11] MEDS: Cholecalciferol TAB* 1000 UNITS PO SCH (09:59)
[2018-09-11] MEDS: Cyanocobalamin TAB* 500 MCG PO SCH (09:59)
[2018-09-11] MEDS: Amiodarone TAB* 200 MG PO SCH (09:59)
[2018-09-11] MEDS: Folic Acid TAB* 1 MG PO SCH (10:00)
[2018-09-11] MEDS: FLUoxetine CAP* 10 MG PO SCH (10:00)
[2018-09-11] MEDS: Pantoprazole TAB * 40 MG TAB PO SCH (10:00)
[2018-09-11] MEDS: Atorvastatin* 40 MG TAB PO SCH (10:00)
[2018-09-11 13:30] LABS: Corrected Retic Count 0.8 % (0.5-1.5); Hematocrit for Retic CNT 29 % (35-47); Immature Retic Fraction 0.46; RBC Retic Count 3.12 10^6/uL (3.70-4.87)
[2018-09-11] MEDS: rOPINIRole TAB* 1 MG PO SCH (22:16)
[2018-09-11] MEDS: Magnesium Oxide TAB* 400 MG PO SCH (22:16)
[2018-09-11] MEDS: Zolpidem TAB* 5 MG PO PRN (22:16)
--- NOTE | 2018-09-11 23:57 | PN ---
Subjective Date of Service: 09/11/18 Interval History: reports that she is feeling well. denies black or tarry stool. Denies abd pain n/v/d. Denies fever or chills. Denies shortness of breath or chest pain. Family History: Unchanged from Admission Social History: Unchanged from Admission Past Medical History: Unchanged from Admission Objective Active Medications: Amiodarone HCl (Cordarone Tab*) 200 mg PO DAILY [facility] Last Admin: 09/11/18 09:59 Dose: 200 mg Atorvastatin Calcium (Lipitor*) 40 mg PO DAILY [facility] Last Admin: 09/11/18 10:00 Dose: 40 mg Cholecalciferol (Vitamin D Tab*) 5,000 units PO DAILY [facility] Last Admin: 09/11/18 09:59 Dose: 5,000 units Cyanocobalamin (Vitamin B12 Tab*) 1,000 mcg PO DAILY [facility] Last Admin: 09/11/18 09:59 Dose: 1,000 mcg Fluoxetine HCl (Prozac Cap*) 10 mg PO DAILY [facility] Last Admin: 09/11/18 10:00 Dose: 10 mg Folic Acid (Folvite Tab*) 1 mg PO QAM [facility] Last Admin: 09/11/18 10:00 Dose: 1 mg Magnesium Oxide (Magox 400 Tab*) 400 mg PO BID [facility] Last Admin: 09/11/18 22:16 Dose: 400 mg Pantoprazole Sodium (Protonix Tab*) 40 mg PO DAILY [facility] Last Admin: 09/11/18 10:00 Dose: 40 mg Ropinirole HCl (Requip Tab*) 2 mg PO BEDTIME [facility] Last Admin: 09/11/18 22:16 Dose: 2 mg Zolpidem Tartrate (Ambien Tab*) 5 mg PO BEDTIME PRN PRN Reason: INSOMNIA Last Admin: 09/11/18 22:16 Dose: 5 mg Vital Signs - 8 hr 09/11/18 19:59 Respiratory 18 Rate Oxygen Devices in Use Now: Nasal Cannula Appearance: appears comfortable resting in bed, no acute distress Eyes: No Scleral Icterus Ears/Nose/Mouth/Throat: Clear Oropharnyx, Mucous Membranes Moist Neck: NL Appearance and Movements; NL JVP, Trachea Midline Respiratory: Symmetrical Chest Expansion and Respiratory Effort, Clear to Auscultation Cardiovascular: NL Sounds; No Murmurs; No JVD, No Edema Abdominal: NL Sounds; No Tenderness; No Distention Extremities: No Edema, No Clubbing, Cyanosis Skin: - - small pink area noted to bilat shins Neurological: Alert and Oriented x 3 Nutrition: Taking PO's Result Diagrams: 09/11/18 05:36 09/11/18 05:36 Additional Lab and Data: Lab Results 09/06/18 09/06/18 Range/Units 23:37 23:37 WBC 5.3 (3.5-10.8) 10^3/uL RBC 3.65 L (3.70-4.87) 10^6 /uL Hgb 10.9 L (12.0-16.0) g/dL Hct 33 L (35-47) % MCV 91 (80-97) fL MCH 30 (27-31) pg MCHC 33 (31-36) g/dL RDW 21 H (10-15) % Plt Count 86 L D (150-450) 10^3/uL MPV 10.4 (7.4-10.4) fL Neut % (Auto) 64.6 % Lymph % (Auto) 24.0 % [place] % (Auto) 10.4 % Eos % (Auto) 0.6 % Baso % (Auto) 0.4 % Absolute Neuts (auto) 3.4 (1.5-7.7) 10^3/ul Absolute Lymphs (auto) 1.3 (1.0-4.8) 10^3/ul Absolute Monos (auto) 0.5 (0-0.8) 10^3/ul Absolute Eos (auto) 0.0 (0-0.6) 10^3/ul Absolute Basos (auto) 0.0 (0-0.2) 10^3/ul Absolute Nucleated RBC 0.0 10^3/ul Nucleated RBC % 0.1 Hem Pathologist Commnt Pending Sodium 132 L (135-145) mmol/L Potassium 3.6 (3.5-5.0) mmol/L Chloride 94 L (101-111) mmol/L Carbon Dioxide 30 (22-32) mmol/L Anion Gap 8 (2-11) mmol/L BUN 45 H (6-24) mg/dL Creatinine 2.44 H (0.51-0.95) mg/dL Est GFR ( Amer) 23.0 (>60) Est GFR (Non-Af Amer) 19.0 (>60) BUN/Creatinine Ratio 18.4 (8-20) Glucose 110 H (70-100) mg/dL Calcium 10.2 (8.6-10.3) mg/dL Total Bilirubin 1.70 H (0.2-1.0) mg/dL AST 33 (13-39) U/L ALT 16 (7-52) U/L Alkaline Phosphatase 57 (34-104) U/L Total Protein 6.2 L (6.4-8.9) g/dL Albumin 3.4 (3.2-5.2) g/dL Globulin 2.8 (2-4) g/dL Albumin/Globulin Ratio 1.2 (1-3) Microbiology and Other Data: Microbiology 09/07/18 00:01 Urine Culture - Final Urine Assess/Plan/Problems-Billing Assessment: 83 y/o female admitted for reccurent fall and weakness and found to have MARY - Patient Problems (1) Recurrent falls Current Visit: Yes Status: Acute Code(s): R29.6 - REPEATED FALLS SNOMED Code(s): 069046889 Comment: - CT head no bleed as she is on Xaretlo at home (not eliquis) - PT and potential subacute rehab - Given the history provided/Obtained today by talking to her daughter (new Rx for Abx and prozac... Followed by 8 episodes of falls...she may have had some tacchy-michelle... QTc induced arrhtytmia. ) No EKG on admission. EKG - Showed paced with LBBB consistent with previous EKG's, QTC 483. - Will keep her off antiboitc (which have been stopped from admission). - will continue prozac (2) Thrombocytopenia Current Visit: Yes Status: Acute Code(s): D69.6 - THROMBOCYTOPENIA, UNSPECIFIED SNOMED Code(s): 813206949 Comment: - progressively getting worse- now improving - Not on any heparin product. 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 Davis as an outpatient for pacemaker interrogation and to discuss resuming xarelto. - at this point risks of taking xarelto outweight the benefit - d/t fall, thrombocytopenia and increased risk of bleeding - Plt increased to 99 today - will recheck in am (3) MARY (acute kidney injury) Current Visit: Yes Status: Acute Code(s): N17.9 - ACUTE KIDNEY FAILURE, UNSPECIFIED SNOMED Code(s): 78128849 Comment: - off Cozzar and amlodipine for Hypotension and MARY- SBP 130's-140' s now - Bun and creatinine normalized (4) Atrial flutter Current Visit: No Status: Acute Code(s): I48.92 - UNSPECIFIED ATRIAL FLUTTER SNOMED Code(s): 3368026 Comment: - h/o svt and a flutter; s/p PPM, will continue amiodarone - xarelto stopped yesterday- given acute thrombocytopenia past one month - Plt 99, improved from yesterday - will repeat tomorrow - risk of anticoagulation in the setting of reccurent fall and low platelet- ok to stop for now per Dr. Davis (5) Type 2 diabetes mellitus Current Visit: No Status: Chronic Comment: fingerstick AC - patient is not diabetic medications at home (6) HTN (hypertension) Current Visit: No Status: Chronic Code(s): I10 - ESSENTIAL (PRIMARY) HYPERTENSION SNOMED Code(s): 83097326 Comment: Losartan and amilodipine - held d/t hypotension - will resume when SBP stablizes may need lower dose (7) DVT prophylaxis Current Visit: No Status: Acute Code(s): Z29.9 - ENCOUNTER FOR PROPHYLACTIC MEASURES, UNSPECIFIED SNOMED Code(s): 662753063 Comment: - off xarelto - platelets low - SCD's (8) Full code status Current Visit: Yes Status: Acute Code(s): Z78.9 - OTHER SPECIFIED HEALTH STATUS SNOMED Code(s): 679916091 Status and Disposition: will likely need skilled PT at discharge
--- NOTE | 2018-09-12 04:51 | DS ---
DISCHARGE SUMMARY: DATE OF ADMISSION: 09/07/18 DATE OF DISCHARGE: 09/12/18 PROVIDER: Shalini Solis NP PRIMARY CARE PROVIDER: Dr. Kanu Bhardwaj. AUDIO VISUAL AIDS DIRECTOR: Dr. Davis. ATTENDING PHYSICIAN WHILE IN THE HOSPITAL: Dr. Giancarlo Crespo * (dictated by Shalini Solis NP) PRIMARY DIAGNOSES: 1. Recurrent falls. 2. Acute kidney injury. 3. Anemia. SECONDARY DIAGNOSES: 1. History of congestive heart failure. 2. Hypertension. 3. Dyslipidemia. 4. Atrial fibrillation. 5. Type 2 diabetes. 6. Coronary artery disease. 7. Restless legs syndrome. STUDIES COMPLETED WHILE IN THE HOSPITAL: The patient had a CT of the brain, radiologist's impression: No acute intracranial abnormality, moderate to chronic small vessel ischemic disease. She had an x-ray of her wrist, radiologist's impression: No fracture or traumatic malalignment of the right wrist, osteopenia, arthroplasty of the first carpometacarpal joint. She had an electrocardiogram, which showed atrial paced rhythm at a rate of 60 with left bundle-branch block. DISCHARGE MEDICATIONS: Discontinued medications: Xarelto. Continued home medications: 1. Fluoxetine 10 mg p.o. daily. 2. Methotrexate 10 mg p.o. weekly. 3. Folic acid 1 mg p.o. q.a.m. 4. Prolia 60 mg subcu every 6 months. 5. Vitamin B12 1000 mcg p.o. daily. 6. Vitamin D 5000 units p.o. daily. 7. Losartan 50 mg p.o. daily (this medication has been on hold). 8. Eliquis 5 mg p.o. b.i.d. 9. Amiodarone 200 mg p.o. daily. 10. Requip 2 mg p.o. at bedtime. 11. Amlodipine 5 mg p.o. daily (this medication has been on hold). 12. Pantoprazole 40 mg p.o. daily. 13. Ambien 5 mg p.o. at bedtime p.r.n. 14. Atorvastatin 40 mg p.o. daily. HISTORY OF PRESENT ILLNESS AND HOSPITAL COURSE: Ms. Kahn is an 83-year-old female with past medical history significant for hypertension; dyslipidemia; rheumatoid arthritis; noninsulin dependent diabetes; stroke in 2003, with no residual deficits; history of SVT; aflutter; history of left bundle-branch block ; coronary artery disease status post coronary artery bypass; restless leg syndrome; history of congestive heart failure with preserved ejection fraction, who presented to the emergency room after her daughter found her on the floor and reported that this was her 8th fall this week. Due to the increased falls, the daughter brought the patient to the emergency room for further evaluation. Upon evaluation in the emergency room, the patient was complaining of pain to her right wrist. Daughter reported she also had neck and hip pain, however, the patient denied hip or neck pain at the time of evaluation. The patient reports that she has noticed she has lost more and more strength over the past 2 months. Given her decreased functional ability and multiple falls, we were asked to see and evaluate her for admission. While in the hospital, the patient had routine lab work drawn. She was given IV fluids for dehydration and hypotension during this hospitalization as well as acute kidney injury. Her initial creatinine on arrival to the emergency room was 2.44. She did receive hydration and her creatinine normalized to 0.82. The patient did have a low magnesium level throughout the hospitalization. Her magnesium was replaced. She was also found to have some anemia. The patient's H and H on arrival to the emergency room was 10.9 and 33. On repeat on 09/11/18, H and H was 8.8 and 26. The patient denies any black or tarry stools. Denies any rectal bleeding. She did have lab work sent. Her iron was 68, TIBC was 274, percent was 25, transferrin was 196, and ferritin was 52.5. Vitamin B12 was greater than 1450 and folate was greater than 20. Stool for occult was ordered and has not been obtained at this point. I suspect some of the anemia found in her lab work could be due to delusional as the patient did receive IV hydration during this hospitalization and appears to have a fluid positive balance of approximately 6 L. The patient is denying any dizziness, lightheadedness, or shortness of breath. At this time, Ms. Kahn will be discharged to [facility]. Vital signs are as follows: Blood pressure is 144/43, heart rate 66, respirations 18, O2 saturation 97%, temperature 97.7. DISCHARGE PLAN: Ms. Kahn will be discharged to [facility]. Activity as tolerated. 1. Recurrent falls. The patient will go to subacute rehab for gait and strength training and use of her walker. I just suspect her multiple falls are related to deconditioning and dehydration. 2. Acute kidney injury. The patient did have acute kidney injury on arrival and she was found to be hypotensive. Her Cozaar and amlodipine were held due to hypotension and acute kidney injury. She was given IV hydration. Her BUN and creatinine normalized and her systolic blood pressure improved to 130s to 140s. I suspect that acute kidney injury is related to dehydration. 3. Thrombocytopenia. The patient did have thrombocytopenia that progressively got worse during this hospitalization. Platelet count was as low as 69 during this hospitalization and were 115 on the day of discharge. Her Xarelto was stopped. I did consult Cardiology, Dr. Davis, who okayed stopping the Xarelto until followup with him in the office, where he will do a pacemaker interrogation and give her further instructions on her Xarelto. At this time, the risk of continuing Xarelto outweighs the benefit as the patient is thrombocytopenic and has had multiple falls, increasing her risk of bleeding. 4. Atrial flutter. The patient does have a history of atrial flutter and SVT. She is on amiodarone. I will continue her amiodarone at 200 mg p.o. daily. Her Xarelto has been stopped due to thrombocytopenia and she should follow up with Dr. Davis, Cardiology in 1 month for further recommendations on restarting the Xarelto or discontinuing the Xarelto as well as pacemaker interrogation. 5. Diabetes type 2. The patient was placed on fingersticks a.c. during this hospitalization. She was not placed on Lispro sliding scale. Her blood sugars remain stable between 101 and 133. She is not currently on home medications. There is no need to start to any home medications at this time. 6. Hypomagnesemia. The patient did have low magnesium level, it was replaced during this hospitalization with IV magnesium. I have also started her on magnesium oxide 400 mg p.o. daily. 7. Hypertension. The patient did have losartan and amlodipine held during this hospitalization due to hypotension and dehydration. Her systolic blood pressure is normalizing today, on 09/11/18, her systolic blood pressure is 130s to 140s, can reconsider restarting losartan or amlodipine. I would recommend not starting both of those as the patient was hypotensive during this hospitalization. FOLLOWUP: The patient should follow up with her primary care provider in 4 to 7 days. She should follow up with Dr. Davis from Cardiology in 1 month for further recommendations on Xarelto and pacemaker interrogation. The patient should return to the emergency room for any chest pain, shortness of breath, or any other concerning symptoms, progressively worsening weakness, weakness on one side, facial droop, or facial asymmetry. At this time, the patient is stable for discharge to [facility]. CONDITION ON DISCHARGE: Stable. DISPOSITION: [facility]. I have discussed this with my attending, Dr. Giancarlo Crespo. He is in agreement with my plan. SHALINI SOLIS NP [id number]/[facility] #: [id number] JONES
[2018-09-12 08:29] LABS: Hematocrit 31 % (35-47); Mean Corpuscular HGB Conc 33 g/dL (31-36); Mean Corpuscular Hemoglobin 30 pg (27-31); Mean Corpuscular Volume 93 fL (80-97); Mean Platelet Volume 9.1 fL (7.4-10.4); Platelet Count 115 10^3/uL (150-450); Red Blood Count 3.29 10^6 /uL (3.70-4.87); Red Cell Distribution Width 22 % (10-15); White Blood Count 4.9 10^3/uL (3.5-10.8)
[2018-09-12] MEDS: Cyanocobalamin TAB* 500 MCG PO SCH (08:59)
[2018-09-12] MEDS: Cholecalciferol TAB* 1000 UNITS PO SCH (08:59)
[2018-09-12] MEDS: Atorvastatin* 40 MG TAB PO SCH (08:59)
[2018-09-12] MEDS: Folic Acid TAB* 1 MG PO SCH (08:59)
[2018-09-12] MEDS: Amiodarone TAB* 200 MG PO SCH (09:00)
[2018-09-12] MEDS: Pantoprazole TAB * 40 MG TAB PO SCH (09:00)
[2018-09-12] MEDS: FLUoxetine CAP* 10 MG PO SCH (09:00)
[2018-09-12] MEDS: Magnesium Oxide TAB* 400 MG PO SCH (09:00)
[2018-09-12 10:12] VITALS: BP 158/49
[2018-09-12 14:25] LABS: Haptoglobin 109 mg/dL (30 - 200)
[2018-09-13 12:33] LABS: Albumin 2.6 g/dL (3.4-4.7); Albumin/Globulin Ratio 0.96; Gamma Globulin 1.2 g/dL (0.6-1.6); Total Protein(PEP) 5.3 g/dL (6.3 - 7.9)
== END 2018-09-12 11:40 | DRG 309 ==
LOC: ED 22:43 → MEDTELE 09-07 03:29
PROVIDERS: ADMIT Internal Medicine; ATTEND Internal Medicine
DX: I48.92 Unspecified atrial flutter (principal); N17.9 Acute kidney failure, unspecified; I13.0 Hypertensive heart and chronic kidney disease with heart failure and stage 1 through stage 4 chronic kidney disease, or unspecified chronic kidney disease; I50.22 Chronic systolic (congestive) heart failure; R29.6 Repeated falls; D64.9 Anemia, unspecified; E78.5 Hyperlipidemia, unspecified; I48.91 Unspecified atrial fibrillation; I25.10 Atherosclerotic heart disease of native coronary artery without angina pectoris; G25.81 Restless legs syndrome; M06.9 Rheumatoid arthritis, unspecified; M85.831 Other specified disorders of bone density and structure, right forearm; E86.0 Dehydration; I95.9 Hypotension, unspecified; D69.6 Thrombocytopenia, unspecified; E78.00 Pure hypercholesterolemia, unspecified; I44.7 Left bundle-branch block, unspecified; K21.9 Gastro-esophageal reflux disease without esophagitis; M19.011 Primary osteoarthritis, right shoulder; Z96.1 Presence of intraocular lens; E83.42 Hypomagnesemia; Z96.653 Presence of artificial knee joint, bilateral; E11.22 Type 2 diabetes mellitus with diabetic chronic kidney disease; M25.531 Pain in right wrist; N18.9 Chronic kidney disease, unspecified; Z79.01 Long term (current) use of anticoagulants; Z86.73 Personal history of transient ischemic attack (TIA), and cerebral infarction without residual deficits; Z95.1 Presence of aortocoronary bypass graft; Z90.49 Acquired absence of other specified parts of digestive tract; Z88.5 Allergy status to narcotic agent; Z88.1 Allergy status to other antibiotic agents; Z88.8 Allergy status to other drugs, medicaments and biological substances; Z91.041 Radiographic dye allergy status; Z82.49 Family history of ischemic heart disease and other diseases of the circulatory system; Z87.440 Personal history of urinary (tract) infections; Z98.42 Cataract extraction status, left eye; Z98.41 Cataract extraction status, right eye
CPT/HCPCS: 36415; 70450; 80048; 80053; 81003; 81015; 82607; 82668; 82728; 82746; 83010; 83540; 83550; 83615; 83735; 84100; 84155; 84165; 85025; 85027; 85045; 85060; 87086; 93005; 99284; A9270-GY; G8978-GP-CJ; G8979-GP-CI; G8987-GO-CK; G8988-GO-CI; J3475

== ENCOUNTER 2018-10-25 17:55 | Emergency (ER) | payer MEDICARE ==
[2018-10-25 19:28] LABS: ABS Eosinophils 0.2 10^3/ul (0-0.6); ABS Lymphocytes 2.2 10^3/ul (1.0-4.8); ABS Monocytes 0.6 10^3/ul (0-0.8); ABS Neutrophils 3.9 10^3/ul (1.5-7.7); Eosinophil % 2.4 %; Hematocrit 31 % (35-47); Hemoglobin 10.1 g/dL (12.0-16.0); Lymphocyte % 31.4 %; Mean Corpuscular HGB Conc 33 g/dL (31-36); Mean Corpuscular Hemoglobin 32 pg (27-31); Mean Corpuscular Volume 96 fL (80-97); Mean Platelet Volume 8.7 fL (7.4-10.4); Platelet Count 239 10^3/uL (150-450); Red Blood Count 3.18 10^6 /uL (3.70-4.87); Red Cell Distribution Width 17 % (10-15); White Blood Count 6.9 10^3/uL (3.5-10.8)
[2018-10-25 19:37] LABS: Urine Appearance Cloudy; Urine Bacteria Absent (Absent); Urine Bilirubin Negative (Negative); Urine Blood Negative (Negative); Urine Color Yellow; Urine Glucose Negative (Negative); Urine Ketones Negative (Negative); Urine Nitrite Negative (Negative); Urine Protein Negative (Negative); Urine Red Blood Cell Trace(0-2/hpf) (Absent); Urine Specific Gravity 1.014 (1.010-1.030); Urine Squamous Epithelial Cell Present (Absent); Urine Transitional Epithelial Present (Absent); Urine Urobilinogen Negative (Negative); Urine White Blood Cell 1+(6-10/hpf) (Absent)
[2018-10-25 19:41] LABS: Albumin 3.5 g/dL (3.2-5.2); BUN/Creatinine Ratio 22.8 (8-20); Calcium 10.5 mg/dL (8.6-10.3); EGFR African American 41.9 (>60); EGFR Non-African American 34.7 (>60); Globulin 3.5 g/dL (2-4); Potassium 4.5 mmol/L (3.5-5.0); Total Bilirubin 0.8 mg/dL (0.2-1.0)
[2018-10-25 19:42] LABS: Troponin I 0.01 ng/mL (<0.04)
[2018-10-25 22:52] VITALS: BP 158/70
== END 2018-10-25 23:50 | disposition left against medical advice (07) ==
LOC: ED 17:55
DX: S09.93XA Unspecified injury of face, initial encounter (principal); W19.XXXA Unspecified fall, initial encounter; Y92.9 Unspecified place or not applicable; Z53.21 Procedure and treatment not carried out due to patient leaving prior to being seen by health care provider
CPT/HCPCS: 36415; 80053; 81003; 81015; 83605; 84484; 85025; 87086; 99281

== ENCOUNTER 2018-11-01 21:52 | Emergency (ER) | payer MEDICARE ==
--- OUTSIDE RECORDS SUMMARY | 2018-11-01 21:59 | XMS REPORT | Summary of Care ---
:1935 Author Organization [facility] Address [address] [facility] [place] [address] Care Team Providers Name Role Phone Kanu Bhardwaj MD Primary Care Provider Sherrie Moon RN Unavailable Reason for Visit Reason Comments Urinary Frequency VNS was concerned patient had a UTI. The urine is normal. Encounter Details Date Type Department Care Team Description 11/01/2018 Office Visit [facility] Kanu Bhardwaj, Dysuria ( Primary Dx); Medicine MD Controlled type 2 diabetes mellitus without complication, without long-term current use of insulin ([facility]); [address] [facility] Urinary frequency; [place] [address] [place] [address] Ankle edema, bilateral; [phone] Atrial fibrillation, chronic ([facility]); Essential hypertension, benign Allergies Active Allergy Reactions Severity Noted Date Comments Amoxicillin Trihydrate GI Reaction Medium 06/29/2016 Hydroxyzine Unknown Reaction 05/29/2015 documented as of this encounter (statuses as of 11/01/2018) Medications Medication Sig Dispensed Refills Start Date End Date Status Cholecalciferol Take 7,000 0 Active (VITAMIN D PO) Units by mouth DAILY. Cyanocobalamin Take 2,500 0 Active (VITAMIN B-12) 1000 mcg by mouth MCG Oral Tab EVERY MORNING. Acetaminophen Take by 0 Active (TYLENOL 8 HOUR PO) mouth. foliC acid 1 MG Oral Take 1 Tab 90 Tab 3 12/19/2017 Active Tab by mouth DAILY. metoprolol Take 1 Tab 180 Tab 5 12/19/2017 Active (LOPRESSOR) 50 MG by mouth Oral TabIndications: TWICE DAILY. Essential hypertension, benign methotrexate 2.5 MG Take 10 mg 94 Tab 5 12/19/2017 Active Oral Tab by mouth EVERY 7 DAYS. losartan (COZAAR) 50 Take 1 Tab 90 Tab 3 02/19/2018 Active MG Oral Tab by mouth DAILY. ropinirole (REQUIP) Take 1 Tab 90 Tab 3 03/09/2018 Active 2 MG Oral by mouth TabIndications: EVERY Restless leg BEDTIME. syndrome Methotrexate 2.5 MG TAKE 4 16 Tab 5 05/07/2018 Active Oral Tab TABLETS BY MOUTH EVERY 7 DAYS pantoprazole TAKE 1 90 Tab 3 06/12/2018 Active (PROTONIX) 40 MG TABLET BY Oral Tab EC MOUTH EVERY DAY rivaroxaban Take 20 mg 0 Active (XARELTO) 20 MG Oral by mouth Tab DAILY. Benzonatate 200 MG TAKE ONE 30 Cap 1 08/07/2018 Active Oral Cap CAPSULE BY MOUTH EVERY 6 HOURS NEEDED FOR COUGH atorvastatin Take 1 Tab 90 Tab 3 08/20/2018 Active (LIPITOR) 40 MG Oral by mouth Tab DAILY. fluoxetine (PROZAC) Take 1 Cap 30 Cap 1 08/30/2018 Active 10 MG Oral by mouth CapIndications: DAILY. Current moderate episode of major depressive disorder without prior episode (HCC) zolpidem (AMBIEN) 5 TAKE 1 30 Tab 5 10/18/2018 Active MG Oral TABLET BY TabIndications: MOUTH AT Chronic insomnia BEDTIME NEEDED FOR SLEEP - MAXIMUM DAILY DOSE OF 1 PER DAY amLodipine (NORVASC) Take 0.5 90 Tab 5 11/01/2018 Active 10 MG Oral Tabs by TabIndications: mouth DAILY. Essential hypertension, benign furosemide (LASIX) Take 20 mg 0 Discontinued 20 MG Oral Tab by mouth 9 DAILY. amLodipine (NORVASC) Take 1 Tab 90 Tab 5 07/31/2018 Discontinued 10 MG Oral by mouth 9 (Dose TabIndications: DAILY. Adjustment) Essential hypertension, benign cephalexin (KEFLEX) Take 1 Cap 30 Cap 0 08/30/2018 Discontinued 250 MG Oral by mouth 9 (Duplicate CapIndications: THREE TIMES Order) Abnormal urine odor, DAILY. Cellulitis of lower extremity, unspecified laterality documented as of this encounter (statuses as of 11/01/2018) Active Problems Problem Noted Date Chronic insomnia 02/19/2018 S/P CABG (coronary artery bypass graft) 09/07/2017 Controlled type 2 diabetes mellitus with microalbuminuria 07/21/2017 residential (current) use of anticoagulants 06/30/2017 Overview: 02/21/18 - [facility], has d/c'd warfarin Managed by: [facility] Referring Provider: Veronica Indication: PAF Target Range: 2.0-3.0 Duration: 3M Initial Referral: 06/28/17 Initial ACS Orders: Pending Atrial fibrillation, chronic 06/28/2017 Valvular heart disease 06/23/2017 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 Left bundle branch block 03/18/2014 Overview: Non ischemic long standing Stress test negative and Essential hypertension, benign 07/23/2013 Restless leg syndrome 07/23/2013 Gallstone pancreatitis 07/23/2013 Overview: S/p cholecystectomy 2001 Pancreatic insufficiency 07/23/2013 Overview: S/p scarring and damage to pancreas related to sphincterotomy 2001 History of CVA (cerebrovascular accident) 07/23/2013 Overview: Feb 2013 Residual balance issues Carotid stenosis, bilateral 07/23/2013 Overview: S/p bilateral CEA Feb 2013 Osteoarthritis, knee 07/23/2013 Overview: S/p bilateral Total knee replacement 2003 and 2004 Mixed hyperlipidemia 07/23/2013 GERD (gastroesophageal reflux disease) 07/23/2013 documented as of this encounter (statuses as of 11/01/2018) Resolved Problems Problem Noted Date Resolved Date Encounter for aftercare for long-term (current) use of 06/30/2017 06/30/2017 antibiotics Diabetes mellitus 07/23/2013 07/21/2017 documented as of this encounter (statuses as of 11/01/2018) Immunizations Name Administration Dates Next Due Influenza Vaccine High Dose 11/29/2017, 11/22/2016 PNEUMOCOCCAL POLYSACCHARIDE VACCINE 12/09/2016 Pneumococcal Conjugate(13 Valent) 10/03/2014 documented as of this encounter Social History Tobacco Use Types Packs/Day Years Used Date Never Smoker Smokeless Tobacco: Never Used Alcohol Use Drinks/Week oz/Week Comments No 0 Standard drinks or equivalent 0.0 Sex Assigned at Date Recorded Not on file Job Start Date Occupation Industry Not on file Not on file Not on file Travel History Travel Start Travel End No recent travel history available. documented as of this encounter Last Filed Vital Signs Vital Sign Reading Time Taken Comments Blood Pressure 110/60 11/01/2018 2:06 PM EDT Pulse 64 11/01/2018 2:06 PM EDT Temperature - - Respiratory Rate - - Oxygen Saturation - - Inhaled Oxygen Concentration - - Weight 67.6 kg (149 lb) 11/01/2018 2:06 PM EDT Height 154.9 cm (5' 1") 11/01/2018 2:06 PM EDT Body Mass Index 28.15 11/01/2018 2:06 PM EDT documented in this encounter Patient Instructions Patient InstructionsKanu Bhardwaj MD - 11/01/2018 2:00 PM EDTUrine test shows no infection no antibiotic needed Stop furosemide it may help the urinary urgency and frequency Reduce dose amlodipine 5 mg 1/2 pill in am the blood pressure is on the low side Blood test today documented in this encounter Progress Notes Kanu Bhardwaj MD - 11/01/2018 2:00 PM EDT PATIENT: Romina Kahn : 1935 DATE OF SERVICE: 11/01/2018 CHIEF COMPLAINT: Chief Complaint Patient presents with Urinary Frequency VNS was concerned patient had a UTI. The urine is normal. Subjective HISTORY OF PRESENT ILLNESS: Romina Kahn is a 83-y.o. female. HPI Seen at request of visiting nurse who noted more urine frequency and patient complained of midl dysuria she has urgency no leakage no blood Denies fevers gastro-intestinal symptoms or flank pain Urine dip today is negative She has hypertension and chronic ankle edema and is on many medications she asks about trying to reduce some of her medications Patient Active Problem List Diagnosis Essential hypertension, benign Restless leg syndrome Gallstone pancreatitis Pancreatic insufficiency History of CVA (cerebrovascular accident) Carotid stenosis, bilateral Osteoarthritis, knee Mixed hyperlipidemia GERD (gastroesophageal reflux disease) Left bundle branch block 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 (HCC) Valvular heart disease Atrial fibrillation, chronic (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 amLodipine (NORVASC) 10 MG Oral Tab Take 0.5 Tabs by mouth DAILY. atorvastatin (LIPITOR) 40 MG Oral Tab Take 1 Tab by mouth DAILY. Benzonatate 200 MG Oral Cap TAKE ONE CAPSULE BY MOUTH EVERY 6 HOURS NEEDED FOR COUGH Cholecalciferol (VITAMIN D PO) Take 7,000 Units by mouth DAILY. Cyanocobalamin (VITAMIN B-12) 1000 MCG Oral Tab Take 2,500 mcg by mouth EVERY MORNING. fluoxetine (PROZAC) 10 MG Oral Cap Take 1 Cap by mouth DAILY. foliC acid 1 MG Oral Tab Take 1 Tab by mouth DAILY. losartan (COZAAR) 50 MG Oral Tab Take 1 Tab by mouth DAILY. methotrexate 2.5 MG Oral Tab Take 10 mg by mouth EVERY 7 DAYS. Methotrexate 2.5 MG Oral Tab TAKE 4 TABLETS BY MOUTH EVERY 7 DAYS metoprolol (LOPRESSOR) 50 MG Oral Tab Take 1 Tab by mouth TWICE DAILY. pantoprazole (PROTONIX) 40 MG Oral Tab EC TAKE 1 TABLET BY MOUTH EVERY DAY rivaroxaban (XARELTO) 20 MG Oral Tab Take 20 mg by mouth DAILY. ropinirole (REQUIP) 2 MG Oral Tab Take 1 Tab by mouth EVERY BEDTIME. zolpidem (AMBIEN) 5 MG Oral Tab TAKE 1 TABLET BY MOUTH AT BEDTIME NEEDED FOR SLEEP - MAXIMUM DAILY DOSE OF 1 PER DAY No current facility-administered medications for this visit. Allergies Allergen Reactions Amoxicillin Trihydrate GI Reaction Hydroxyzine Unknown Reaction Social History Socioeconomic History Marital status: Spouse name: Not on file Number of children: Not on file Years of education: Not on file Highest education level: Not on file Occupational History Not on file Social Needs Financial resource strain: Not on file Food insecurity: Worry: Not on file Inability: Not on file Transportation needs: Medical: Not on file Non-medical: Not on file Tobacco Use Smoking status: Never Smoker Smokeless tobacco: Never Used Substance and Sexual Activity Alcohol use: No Alcohol/week: 0.0 standard drinks Drug use: No Sexual activity: Not Currently Lifestyle Physical activity: Days per week: Not on file Minutes per session: Not on file Stress: Not on file Relationships Social connections: Talks on phone: Not on file Gets together: Not on file Attends judaism service: Not on file Active member of club or organization: Not on file Attends meetings of clubs or organizations: Not on file Relationship status: Not on file Intimate partner violence: Fear of current or ex partner: Not on file Emotionally abused: Not on file Physically abused: Not on file Forced sexual activity: Not on file Other Topics Concern Back Care Not Asked Bike Helmet Not Asked Blood Transfusions Not Asked Caffeine Concern Not Asked Exercise No Hobby Hazards Not Asked International Travel Not Asked Service Not Asked Occupational Exposure Not Asked Seat Belt Not Asked Self-Exams Not Asked Sleep Concern Not Asked Special Diet No Stress Concern Not Asked Weight Concern No Social History Narrative Moved from [facility] from a house to live with daughter in [facility] May 2013 Previously lived alone 30 years 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 ROS no falls mild orthostatic lightheaded feeling no loss of consciousness BP Readings from Last 3 Encounters: 11/01/18 110/60 09/06/18 96/54 08/30/18 92/58 no pulmonary symptoms Objective PHYSICAL EXAM: VITALS: BP 110/60 | Pulse 64 | Ht 5' 1" (1.549 m) | Wt 149 lb (67.6 kg) | BMI 28.15 kg/m Body mass index is 28.15 kg/m. Physical Exam The abdomen is soft without tenderness, guarding, mass, rebound or organomegaly. Bowel sounds are normal. No CVA tenderness or inguinal adenopathy noted. Mental status exam; she is alert, orient to time, person and place. Normal thought content, speech, affect, mood and dress are noted. ASSESSMENT / IMPRESSION: ICD-9-CM ICD-10-CM 1. Dysuria no urinary tract infection reassurance 788.1 R30.0 2. Controlled type 2 diabetes mellitus without complication, without long-term current use of insulin ([facility]) hemoglobin A1C today no medications 250.00 E11.9 GLYCOHEMOGLOBIN A1C COMPREHENSIVE METABOLIC PANEL 3. Urinary frequency stop furosemide for now 788.41 R35.0 4. Ankle edema, bilateral 719.07 M25.471 M25.472 5. Atrial fibrillation, chronic (HCC) continue current medications 427.31 I48.2 6. Essential hypertension, benign at goal on the low side stop furosemide and trial of 5 mg amlodipine monitor 401.1 I10 amLodipine (NORVASC) 10 MG Oral Tab Patient Instructions Urine test shows no infection no antibiotic needed Stop furosemide it may help the urinary urgency and frequency Reduce dose amlodipine 5 mg 1/2 pill in am the blood pressure is on the low side Blood test today Kanu Bhardwaj MD 11/01/2018 15:18 documented in this encounter Plan of Treatment Date Type Specialty Care Team Description 12/27/2018 Office Visit Pulmonary Estuardo Dietrich MD [address] [place] [address] [phone] Name Type Priority Associated Diagnoses Date/Time GLYCOHEMOGLOBIN A1C Lab Routine Controlled type 2 11/01/2018 2:59 PM diabetes mellitus EDT without complication, without long-term current use of insulin (HCC) COMPREHENSIVE METABOLIC Lab Routine Controlled type 2 11/01/2018 2:59 PM PANEL diabetes mellitus EDT without complication, without long-term current use of insulin (HCC) Health Maintenance Due Date Last Done Comments ZOSTER IMMUNIZATION SERIES (1 06/27/1987 of 2) FALL RISK ASSESSMENT 2002 MEDICARE ANNUAL WELLNESS VISIT 12/09/2017 12/09/2016 INFLUENZA VACCINE (#1) 2018 11/29/2017, 11/22/2016 DEPRESSION SCREENING 07/12/2019 07/11/2018 PNEUMOCOCCAL 65+YRS Completed 12/09/2016, 10/03/2014 HPV IMMUNIZATION SERIES Aged Out No longer eligible based on patient's age to complete this topic MENINGOCOCCAL VACCINE IMM Aged Out No longer eligible based on patient's age to complete this topic documented as of this encounter Goals Goal Patient Goal Associated Recent Patient-Stated? Author Type Problems Progress Blood Pressure Blood Pressure 110/60 No [place], < 140/90 (11/01/2018 Kanu Ndiaye, 2:06 PM EDT) Note: Hypertension Care Plan Based on the patient's clinical history and according to JNC 8 guidelines target blood pressure goal is less than 140/90. Based on the patient's last blood pressure of BP: 130/60 mmHg the patient is at at goal. As your provider, it is important that I advise you regarding: your current medications and help you with any challenges you may face taking your medications as directed (ex. instructions, cost, side effects, and interactions). lifestyle changes: exercise, weight reduction, diet and dietary sodium reduction your clinical goals and how you can achieve success: weight reduction and exercise plan medication management: N/A diet only patient education/self-management tools provided: No To successfully manage my Hypertension I will: monitor my blood pressure daily, understanding that my goal is less than 140/ 90 per my healthcare provider's recommendation. I will schedule an appointment with my provider if consistent abnormal readings greater than 160/100. take medications every day as prescribed by my healthcare provider and if unable to take them I will discuss with my provider. monitor for symptoms of chest pain, chest tightness/pressure, irregular heartbeat, persistent dizziness, radiating arm pain, and neck or jaw pain. If any of these symptoms are noticed I will seek medical attention immediately by calling 911 exercise/walk 30 minutes 6 day(s) per week. If I experience chest pain, chest tightness, or shortness of breath, I will seek medical attention immediately. follow a diet rich in fruits, vegetables, and low-fat dairy products with reduced content of saturated & total fat. I will reduce my sodium intake daily. An example is the DASH diet. To obtain more information please refer to the DASH Eating Plan listed in Educational Resources. record my blood pressure results. [employer] is safe and secure way for you to do this in your medical record online. try to obtain an ideal body weight. My recent weight was Weight: 171 lb ( 77.565 kg). My weight loss goal for my next office visit is 165. limit alcohol consumption. For men two drinks per day and women one drink per day. if currently smoking, will discuss how to quit smoking with my healthcare provider and work towards quitting. Educational Resources: National Heart, Lung, & Blood Bath http://nhlbi.nih.gov/hbp/index.html The DASH Diet Eating Plan http://www.nhlbi.nih.gov/health/health-topics/ topics/dash/ Academy of Nutrition & DIetetics http://eatright.org National Smoking Cessation Site http://smokefree.gov Blood Pressure < Blood Pressure 110/60 (11/01/2018 No Kristine Maldonado FNP 140/90 2:06 PM EDT) Note: This is an individualized treatment (blood pressure) goal for Romina Kahn: Displayed above (on the left) is your goal for blood pressure control. Your most recent blood pressure is also shown above, on the right. You should try to achieve blood pressures that are lower than your goal listed above (on the left). Depression screen (PHQ-9) total score < 5 Depression Kanu Chatterjee MD Note: This is an individualized treatment (depression) goal for Romina Kahn: Displayed above is your goal for a depression screening (PHQ-9) score that would indicate good control of your depression. Diabetes < 7.0 Diabetes 6.2 (07/26/2018 3:45 PM EDT) Kanu Chatterjee MD Note: Diabetes Care Plan According to current 2014 ADA guidelines the patient A1C goal is less than 7. The patient's last A1C was Lab Results Lab Results Value Date/Time GLYCO 6.2 02/26/2014 1558 The patient is:at goal . As your provider, it is important that I advise you regarding: your current medications and help you with any challenges you may face taking your medications as directed (ex. instructions, cost, side effects, and interactions). lifestyle changes:exercise and diet your clinical goals and how you can achieve success:exercise plan and diet management medication management: N/A diet only patient education/self-management tools provided: Current self-management tools adequate To successfully manage my Diabetes I will: have lab work every six months if my previous A1c was 7 or less. If my results were greater than 7, I will have lab work every three months. My goal is to control my diabetes by keeping A1c below 7.0 take medications every day as prescribed by my healthcare provider and if unable to take them I will discuss with my provider. exercise/walk 30 minutes 6 day(s) per week. If I experience chest pain, chest tightness, or shortness of breath, I will seek medical attention immediately. check feet daily. If sores or irritation are noticed, will seek medical attention. follow a low carbohydrate and low fat diet. My goal is an LDL (bad cholesterol) number less than 100 when I have my routine lab work. check blood sugar as instructed and will call my healthcare provider if the results are consistently below 70 or above 300. I will monitor for symptoms of low blood sugar (feeling faint, dizzy, lig htheaded, jittery, sweaty, or hungry), if symptoms are noticed, I will eat or drink something (glucose tabs, orange juice, candy) to help raise sugar. record my blood sugar results (including dextrose sticks). [employer] is safe and secure way for you to do this in your medical record online. try to obtain an ideal body weight. My recent weight was Weight: 173 lb ( 78.472 kg). My weight loss goal for my next office visit is 160 pounds . to prevent kidney problems common to people with diabetes I will complete a yearly Microalbumin to check for protein in urine. I will talk with my healthcare provider about medications to prevent diabetic renal disease. to prevent diabetic retinopathy I will see an eye doctor yearly. A yearly dilated eye exam helps prevent blindness. if currently smoking, will discuss how to quit smoking with my healthcare provider and work towards quitting. Glycohemoglobin A1c < 7.0 Diabetes 6.2 (07/26/2018 3:45 No Kristine Maldonado FNP PM EDT) Note: This is an individualized treatment (diabetes control, HgbA1C) goal for Romina Kahn: Displayed above is your progress towards your HgbA1C goal. Your goal is shown above (on the left); your most recent HgbA1C is shown on the right. Note that lower numbers are better. Weight loss vs. 18 mo Lifestyle 20.13 (11/01/2018 2:06 PM No Kristine Maldonado FNP max (lbs) >= 10 EDT) Note: This is an individualized lifestyle goal for Romina Kahn: Your body mass index (BMI) is more than 30. You should lose weight. A reasonable starting goal is to lose 10 pounds. Displayed above is how many pounds you have lost thus far towards your 10 pound weight loss goal. Keep immunizations current Lifestyle No Kristine Maldonado FNP Note: This is an individualized lifestyle goal for Romina Kahn: Please be sure to keep up-to-date on recommended immunizations. For example, this would include a yearly influenza vaccine. Immunization status can be seen by looking at the Health Maintenance sections of your [facility], Plan of Care, and any After Visit Summaries. Keep a regular sleep schedule Lifestyle No Kanu Bhardwaj MD Note: This is an individualized lifestyle goal for Romina Kahn: Please maintain a regular sleep schedule. This may help with some symptoms of depression. Take all prescribed medications as Self-management No Kristine Maldonado , KEILA directed Note: This is an individualized self-management goal for Romina Kahn: Please take all prescribed medications as directed. 1. Do not skip doses. If you cannot afford your medications, talk with your doctor. 2. Use a pill reminder system such as a pill box if needed. Your pharmacist can help you with this. 3. Contact your Pharmacy 5 days before your medication runs out. If you cannot take your medications for any reasons, talk with your doctor. 4. Please bring all of your medication bottles and inhalers (or a list of all your medications/inhalers) with you to every visit. Potential barriers to meeting all of your care plan goals will continue to be addressed on an ongoing basis. documented as of this encounter Results Not on filedocumented in this encounter Visit Diagnoses Diagnosis Dysuria - Primary Controlled type 2 diabetes mellitus without complication, without long-term current use of insulin (HCC) Urinary frequency Ankle edema, bilateral Atrial fibrillation, chronic (HCC) Atrial fibrillation Essential hypertension, benign documented in this encounter Insurance Payer Benefit Plan / Subscriber ID Effective Dates Phone Address Type Group MEDICARE MEDICARE PART A xxxxxxxxxxx 2002-Present Medicare & B [facility] COMMERCIAL [facility] CARE xxxxxxxxxxx 2017-Present [facility] OPTIONS Guarantor Name Account Type Relation to Date of Phone Billing Address Patient Romina Kahn Personal/Family 1935 [address] ([address]) [address] [phone] [place], [place] (Work) [id number] documented as of this encounter Advance Directives Type Date Recorded 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
[2018-11-02 00:14] LABS: ABS Eosinophils 0.1 10^3/ul (0-0.6); ABS Lymphocytes 1.9 10^3/ul (1.0-4.8); ABS Monocytes 0.4 10^3/ul (0-0.8); ABS Neutrophils 4.5 10^3/ul (1.5-7.7); Eosinophil % 1.2 %; Hematocrit 31 % (35-47); Lymphocyte % 27.4 %; Mean Corpuscular HGB Conc 33 g/dL (31-36); Mean Corpuscular Hemoglobin 31 pg (27-31); Mean Corpuscular Volume 96 fL (80-97); Mean Platelet Volume 8.5 fL (7.4-10.4); Platelet Count 246 10^3/uL (150-450); Red Cell Distribution Width 17 % (10-15)
[2018-11-02 00:37] LABS: Urine Appearance Clear; Urine Bacteria Absent (Absent); Urine Bilirubin Negative (Negative); Urine Blood Negative (Negative); Urine Color Yellow; Urine Glucose Negative (Negative); Urine Ketones Negative (Negative); Urine Nitrite Negative (Negative); Urine Protein Negative (Negative); Urine Red Blood Cell Absent (Absent); Urine Specific Gravity 1.012 (1.010-1.030); Urine Squamous Epithelial Cell Present (Absent); Urine Urobilinogen Negative (Negative); Urine White Blood Cell Trace(0-5/hpf) (Absent)
[2018-11-02 00:39] LABS: Albumin 3.7 g/dL (3.2-5.2); BUN/Creatinine Ratio 24.8 (8-20); EGFR African American 49.8 (>60); EGFR Non-African American 41.1 (>60); Globulin 3.7 g/dL (2-4); Total Bilirubin 0.8 mg/dL (0.2-1.0); Total Protein 7.4 g/dL (6.4-8.9)
[2018-11-02] MEDS ORDERED: rOPINIRole TAB* 1 MG PO SCH (01:30)
--- NOTE | 2018-11-02 01:43 | ED ---
Head Injury - HPI Summary HPI Summary: Patient is a 83 year old female presenting to [facility] accompanied by daughter with a chief compliant of head injury. Patient states that she fell from a standing position when getting out the shower. Patient states that she missed the bathroom rug and fell and hit her head. Patient states that she has pain that radiates down her shoulder into her arm. Patient denies n/v/d and dizziness. Patient reports pain 0/10. Symptoms alleviated by nothing. Symptoms aggravated by nothing. - History Of Current Complaint Chief Complaint: EDFall Stated Complaint: FALL PER EMS Time Seen by Provider: 11/01/18 22:30 Hx Obtained From: Patient, Family/Conditioning Coach - Daughter Mechanism Of Injury: Blunt Trauma, Fall From A Standing Position Onset/Duration: Started Minutes Ago, Still Present Onset of Pain: Immediate Pain Intensity: 0 Pain Scale Used: 0-10 Numeric Location of Head Injury: Occipital - Allergies/Home Medications Allergies/Adverse Reactions: Allergies Allergy/AdvReac Type Severity Reaction Status Date / Time hydroxyzine Allergy Unknown Verified 11/01/18 21:58 Reaction Details Iodinated Contrast Media AdvReac Severe Diarrhea Verified 11/01/18 21:58 [Iodinated Contrast- Oral and IV Dye] oxycodone AdvReac Severe Nausea And Verified 11/01/18 21:58 Vomiting amoxicillin [From Augmentin] AdvReac Intermediate Nausea And Verified 11/01/18 21:58 Vomiting clavulanic acid AdvReac Intermediate Nausea And Verified 11/01/18 21:58 [From Augmentin] Vomiting Home Medications: Home Medications Metoprolol Tartrate TAB* [Lopressor TAB*] 50 mg PO BID 11/01/18 [History Confirmed 11/01/18] Rivaroxaban TAB(*) [Xarelto 20 mg] 20 mg PO DAILY 11/01/18 [History Confirmed ] PMH/Surg Hx/FS Hx/Imm Hx Endocrine/Hematology History: Reports: Hx Diabetes - TYPE ll Cardiovascular History: Reports: Hx Angina, Hx Coronary Artery Disease - CAROTID ENDARTERECTOMY 2013, Hx Hypercholesterolemia, Hx Hypertension, Hx Valvular Heart Disease - Valve repair, Other Cardiovascular Problems/Disorders - HIGH CHOLESTEROL, LBBB, SEE COMMENT Denies: Hx Myocardial Infarction, Hx Pacemaker/ICD Respiratory History: Denies: Hx Asthma, Hx Chronic Obstructive Pulmonary Disease (COPD) GI History: Reports: Hx Gastroesophageal Reflux Disease - ON PROTONIX DAILY, Hx Hiatal Hernia - HISTORY OF, Other GI Disorders - CHOLECYSTECTOMY, ABD HERNIA REPAIR, PANCREATITIS, HIGH CHOLESTEROL History: Reports: Other Problems/Disorders - STRESS INCONTINENCE WITH COUGHING/SNEEZING Denies: Hx Chronic Renal Failure Musculoskeletal History: Reports: Hx Arthritis - RIGHT SHOULDER, KNEES, Other Musculoskeletal History - PRIMARY OSTEOARTHRITIS, RIGHT SHOULDER, BILAT TKR, FX HUMERUS Sensory History: Reports: Hx Cataracts, Hx Contacts or Glasses Denies: Hx Deafness, Hx Hearing Aid Opthamlomology History: Reports: Hx Cataracts, Hx Contacts or Glasses Neurological History: Denies: Other Neuro Impairments/Disorders - RESIDUAL Psychiatric History: Denies: Hx Autism - Cancer History Hx Chemotherapy: No - Surgical History Surgery Procedure, Year, and Place: 05/2001 CHOLECYSTECTOMY- [facility]. 2002 ADB HERNIA REPAIR- [facility]. 2003 LEFT TKR- [facility]. 2004 RIGHT TKR- [facility]. 2013 BILATERAL CAROTID ENDARTERECTOMY- [facility]. 02/2014 ORIF FX LEFT HUMERUS- [facility]. 05/2015 BILATERAL CATARACT EXTRACTION WITH IOL IMPLANT- [facility] Hx Anesthesia Reactions: No Infectious Disease History: No Infectious Disease History: Denies: Hx Clostridium Difficile, Hx Hepatitis, Hx Human Immunodeficiency Virus (HIV), Hx of Known/Suspected MRSA, Hx Shingles, Hx Tuberculosis, History Other Infectious Disease, Traveled Outside the [place] in Last 30 Days - Family History Known Family History: Positive: Cardiac Disease - Social History Alcohol Use: None Hx Substance Use: No Substance Use Type: Reports: None Hx Tobacco Use: No Smoking Status (MU): Never Smoked Tobacco Have You Smoked in the Last Year: No Review of Systems Negative: Fever Positive: Other - Negative vision changes Negative: Vomiting, Nausea Negative: Headache All Other Systems Reviewed And Are Negative: Yes Physical Exam - Summary Physical Exam Summary: General: Well-developed, Well-nourished FEMALE. No acute distress. HEENT: Normocephalic, Atraumatic. Eyes: Conjuctiva normal, PERRL. Ears: TMs within normal limits. Nares: (-) discharge, (-) erythema. Oropharynx: Clear, mucous membranes moist, (-) exudates. Neck: Soft, FROM, (-) lymphadenopathy, (-) thyromegaly, (-) JVD. Cardiovascular: Normal sinus rhythm, (-) murmur. Lungs: Clear to auscultation bilaterally (-) wheezes, (-) rales, (-) rhonchi. Abdomen: Soft, non-tender, non-distended, (-) organomegaly, normal bowel sounds. Back: Mild occipital tenderness, no significant tenderness over cervical spine as processes . Extremities: No edema. Skin: Warm, dry, (-) rash. Neuro: Alert and oriented x3, no focal deficits. Psychiatric: Mood normal, affect normal. Triage Information Reviewed: Yes Vital Signs On Initial Exam: Initial Vitals Pulse BP Pulse Ox 75 148/69 98 11/01/18 21:53 11/01/18 21:53 11/01/18 21:53 Vital Signs Reviewed: Yes Diagnostics - Vital Signs Vital Signs Temp Pulse Resp BP Pulse Ox 11/02/18 01:23 68 135/71 97 11/02/18 01:00 71 95 11/02/18 00:54 71 135/64 95 11/02/18 00:24 72 124/49 94 11/02/18 00:05 76 96 11/01/18 23:57 83 149/57 94 11/01/18 23:23 74 152/56 97 11/01/18 23:00 72 93 11/01/18 22:53 70 138/58 87 11/01/18 22:23 75 158/61 94 11/01/18 22:00 65 98 11/01/18 21:55 98.2 F 74 16 148/69 99 11/01/18 21:53 75 148/69 98 - Laboratory Lab Results: Lab Results 11/01/18 11/02/18 11/02/18 Range/Units 23:44 00:04 00:04 WBC 7.0 (3.5-10.8) 10^3/uL RBC 3.20 L (3.70-4.87) 10^6 /uL Hgb 10.0 L (12.0-16.0) g/dL Hct 31 L (35-47) % MCV 96 (80-97) fL MCH 31 (27-31) pg MCHC 33 (31-36) g/dL RDW 17 H (10-15) % Plt Count 246 (150-450) 10^3/uL MPV 8.5 (7.4-10.4) fL Neut % (Auto) 65.1 % Lymph % (Auto) 27.4 % Elbert % (Auto) 5.9 % Eos % (Auto) 1.2 % Baso % (Auto) 0.4 % Absolute Neuts (auto) 4.5 (1.5-7.7) 10^3/ul Absolute Lymphs (auto) 1.9 (1.0-4.8) 10^3/ul Absolute Monos (auto) 0.4 (0-0.8) 10^3/ul Absolute Eos (auto) 0.1 (0-0.6) 10^3/ul Absolute Basos (auto) 0.0 (0-0.2) 10^3/ul Absolute Nucleated RBC 0.0 10^3/ul Nucleated RBC % 0.0 Sodium 135 (135-145) mmol/L Potassium 4.0 (3.5-5.0) mmol/L Chloride 98 L (101-111) mmol/L Carbon Dioxide 28 (22-32) mmol/L Anion Gap 9 (2-11) mmol/L BUN 31 H (6-24) mg/dL Creatinine 1.25 H (0.51-0.95) mg/dL Est GFR ( Amer) 49.8 (>60) Est GFR (Non-Af Amer) 41.1 (>60) BUN/Creatinine Ratio 24.8 H (8-20) Glucose 138 H (70-100) mg/dL Lactic Acid (0.5-2.0) mmol/L Calcium 11.0 H (8.6-10.3) mg/dL Total Bilirubin 0.80 (0.2-1.0) mg/dL AST 24 (13-39) U/L ALT 21 (7-52) U/L Alkaline Phosphatase 102 (34-104) U/L Total Protein 7.4 (6.4-8.9) g/dL Albumin 3.7 (3.2-5.2) g/dL Globulin 3.7 (2-4) g/dL Albumin/Globulin Ratio 1.0 (1-3) Urine Color Yellow Urine Appearance Clear Urine pH 6.0 (5-9) Ur Specific [place] 1.012 (1.010-1.030) Urine Protein Negative (Negative) Urine Ketones Negative (Negative) Urine Blood Negative (Negative) Urine Nitrate Negative (Negative) Urine Bilirubin Negative (Negative) Urine Urobilinogen Negative (Negative) Ur Leukocyte Esterase 1+ A (Negative) Urine WBC (Auto) Trace(0-5/hpf) (Absent) Urine RBC (Auto) Absent (Absent) Ur Squamous Epith Cells Present A (Absent) Urine Bacteria Absent (Absent) Urine Glucose Negative (Negative) 11/02/18 Range/Units 00:04 WBC (3.5-10.8) 10^3/uL RBC (3.70-4.87) 10^6 /uL Hgb (12.0-16.0) g/dL Hct (35-47) % MCV (80-97) fL MCH (27-31) pg MCHC (31-36) g/dL RDW (10-15) % Plt Count (150-450) 10^3/uL MPV (7.4-10.4) fL Neut % (Auto) % Lymph % (Auto) % Elbert % (Auto) % Eos % (Auto) % Baso % (Auto) % Absolute Neuts (auto) (1.5-7.7) 10^3/ul Absolute Lymphs (auto) (1.0-4.8) 10^3/ul Absolute Monos (auto) (0-0.8) 10^3/ul Absolute Eos (auto) (0-0.6) 10^3/ul Absolute Basos (auto) (0-0.2) 10^3/ul Absolute Nucleated RBC 10^3/ul Nucleated RBC % Sodium (135-145) mmol/L Potassium (3.5-5.0) mmol/L Chloride (101-111) mmol/L Carbon Dioxide (22-32) mmol/L Anion Gap (2-11) mmol/L BUN (6-24) mg/dL Creatinine (0.51-0.95) mg/dL Est GFR ( Amer) (>60) Est GFR (Non-Af Amer) (>60) BUN/Creatinine Ratio (8-20) Glucose (70-100) mg/dL Lactic Acid 1.3 (0.5-2.0) mmol/L Calcium (8.6-10.3) mg/dL Total Bilirubin (0.2-1.0) mg/dL AST (13-39) U/L ALT (7-52) U/L Alkaline Phosphatase (34-104) U/L Total Protein (6.4-8.9) g/dL Albumin (3.2-5.2) g/dL Globulin (2-4) g/dL Albumin/Globulin Ratio (1-3) Urine Color Urine Appearance Urine pH (5-9) Ur Specific Ehrenberg (1.010-1.030) Urine Protein (Negative) Urine Ketones (Negative) Urine Blood (Negative) Urine Nitrate (Negative) Urine Bilirubin (Negative) Urine Urobilinogen (Negative) Ur Leukocyte Esterase (Negative) Urine WBC (Auto) (Absent) Urine RBC (Auto) (Absent) Ur Squamous Epith Cells (Absent) Urine Bacteria (Absent) Urine Glucose (Negative) Result Diagrams: 11/02/18 00:04 11/02/18 00:04 Lab Statement: Any lab studies that have been ordered have been reviewed, and results considered in the medical decision making process. - CT Brain CT CT Interpretation Completed By: Radiologist Summary of CT Findings: CT Brain Scan reveals, per radiologist, IMPRESSION: 1. Moderate volume loss and small vessel ischemic changes. 2. No acute intracranial abnormality. ED Physician has reviewed this report. Cervical spine ct CT Interpretation Completed By: Radiologist Summary of CT Findings: Cevical Spine CT reveal, per radiologist, IMPRESSION: Nondisplaced fracture of the bilateral posterior arches of C1. Foramen transversarium of C1 are intact. No retropulsion.Mild prevertebral soft tissue swelling at C1/C2. ED Physician has reviewed this report. Head Injury Course/Dx Course Of Treatment: 83 year old female s/p fall with C1 posterior arch fractures. placed in [place] J collar. follow up with neurosurgery. follow up sooner for any worsening symptoms. tylenol or ibuprofen for pain. - Diagnoses Provider Diagnoses: C1 cervical fracture, Fall Discharge ED - Sign-Out/Discharge Documenting (check all that apply): Patient Departure - discharge Patient Received Moderate/Deep Sedation with Procedure: No - Discharge Plan Condition: Stable Disposition: HOME Patient Education Materials: Cervical Fracture (ED), Fall Prevention (ED) Referrals: Kamar Womack MD [Medical Doctor] - 1 Week Additional Instructions: Please follow up with Dr. Womack Neurosurgeon 1 to 2 weeks. Please return to ED for any new or worsening symptoms. Patient is to wear Hard [place] J collar for 23 hours a day until directed otherwise from Neurosurgeon. - Bening Disposition and Condition Condition: STABLE Disposition: Home - Attestation Statements Document Initiated by Tom: Yes Documenting Scribe: Delilah Donahue Provider For Whom Tom is Documenting (Include Credential): Dr. Nikkie Moore MD Scribe Attestation: Delilah Chavarria, scribed for Dr. Nikkie Moore MD on 11/02/18 at 0556. Scribe Documentation Reviewed: Yes Provider Attestation: The documentation as recorded by the Delilah pacheco accurately reflects the service I personally performed and the decisions made by me, Dr. Nikkie Moore MD Status of Scribe Document: Ready
[2018-11-02 02:34] VITALS: BP 144/52
== END 2018-11-02 01:49 | disposition home or self-care (01) ==
LOC: ED 21:52
DX: S12.001A Unspecified nondisplaced fracture of first cervical vertebra, initial encounter for closed fracture (principal); W18.2XXA Fall in (into) shower or empty bathtub, initial encounter; Y92.002 Bathroom of unspecified non-institutional (private) residence as the place of occurrence of the external cause; E11.9 Type 2 diabetes mellitus without complications; E78.00 Pure hypercholesterolemia, unspecified; I10 Essential (primary) hypertension; I25.119 Atherosclerotic heart disease of native coronary artery with unspecified angina pectoris; K21.9 Gastro-esophageal reflux disease without esophagitis; Z90.49 Acquired absence of other specified parts of digestive tract; Z96.653 Presence of artificial knee joint, bilateral; Z79.01 Long term (current) use of anticoagulants; Z79.899 Other long term (current) drug therapy
CPT/HCPCS: 36415; 70450; 72125; 80053; 81003; 81015; 83605; 85025; 87086; 99283; A9270-GY

== ENCOUNTER 2018-11-20 04:09 | Inpatient (IN) | payer MEDICARE ==
--- NOTE | 2018-11-20 04:17 | ED ---
Adult Trauma - HPI Summary HPI Summary: Pt is an 83 y/o F w hx recent C1 fracture presenting to the ED with a chief complaint of a fall. Per EMS, the pt was moving from her walker to her chair around 0300. She fell onto her R hip and now has R hip pain and some bruising. When resting, she reports no pain, when moving it is 6/10, when palpated it is 7 /10. She is on blood thinners. She denies head/neck/back pain. She has a C- collar in place from prior fall where she "chipped her cervical vertebrae". - History of Current Complaint Stated Complaint: R HIP PAIN PER EMS Hx Obtained From: Patient Mechanism of Injury: Fall Loss of Consciousness: no loss of consciousness Onset/Duration: Started Hours Ago, Still Present Onset Severity: Moderate Current Severity: Moderate Location: Abdomen/Pelvis - R hip Aggravating Factor(s): Movement, Palpation Alleviating Factor(s): Rest Associated Signs & Symptoms: Positive: Ecchymosis - Additional Pertinent History Primary Care Physician: [id number] - Allergy/Home Medications Allergies/Adverse Reactions: Allergies Allergy/AdvReac Type Severity Reaction Status Date / Time hydroxyzine Allergy Unknown Verified 11/01/18 21:58 Reaction Details Iodinated Contrast Media AdvReac Severe Diarrhea Verified 11/01/18 21:58 [Iodinated Contrast- Oral and IV Dye] oxycodone AdvReac Severe Nausea And Verified 11/01/18 21:58 Vomiting amoxicillin [From Augmentin] AdvReac Intermediate Nausea And Verified 11/01/18 21:58 Vomiting clavulanic acid AdvReac Intermediate Nausea And Verified 11/01/18 21:58 [From Augmentin] Vomiting PMH/Surg Hx/FS Hx/Imm Hx Previously Healthy: Yes Endocrine/Hematology History: Reports: Hx Diabetes - TYPE ll Cardiovascular History: Reports: Hx Angina, Hx Coronary Artery Disease - CAROTID ENDARTERECTOMY 2013, Hx Hypercholesterolemia, Hx Hypertension, Hx Valvular Heart Disease - Valve repair, Other Cardiovascular Problems/Disorders - HIGH CHOLESTEROL, LBBB, SEE COMMENT Denies: Hx Myocardial Infarction, Hx Pacemaker/ICD Respiratory History: Denies: Hx Asthma, Hx Chronic Obstructive Pulmonary Disease (COPD) GI History: Reports: Hx Gastroesophageal Reflux Disease - ON PROTONIX DAILY, Hx Hiatal Hernia - HISTORY OF, Other GI Disorders - CHOLECYSTECTOMY, ABD HERNIA REPAIR, PANCREATITIS, HIGH CHOLESTEROL History: Reports: Other Problems/Disorders - STRESS INCONTINENCE WITH COUGHING/SNEEZING Denies: Hx Chronic Renal Failure Musculoskeletal History: Reports: Hx Arthritis - RIGHT SHOULDER, KNEES, Other Musculoskeletal History - PRIMARY OSTEOARTHRITIS, RIGHT SHOULDER, BILAT TKR, FX HUMERUS Sensory History: Reports: Hx Cataracts, Hx Contacts or Glasses Denies: Hx Deafness, Hx Hearing Aid Opthamlomology History: Reports: Hx Cataracts, Hx Contacts or Glasses Neurological History: Denies: Other Neuro Impairments/Disorders - RESIDUAL Psychiatric History: Denies: Hx Autism - Cancer History Hx Chemotherapy: No - Surgical History Surgery Procedure, Year, and Place: 05/2001 CHOLECYSTECTOMY- [facility]. 2002 ADB HERNIA REPAIR- [facility]. 2003 LEFT TKR- [facility]. 2004 RIGHT TKR- [facility]. 2013 BILATERAL CAROTID ENDARTERECTOMY- [facility]. 02/2014 ORIF FX LEFT HUMERUS- [facility]. 05/2015 BILATERAL CATARACT EXTRACTION WITH IOL IMPLANT- [facility] Hx Anesthesia Reactions: No Infectious Disease History: Denies: Hx Clostridium Difficile, Hx Hepatitis, Hx Human Immunodeficiency Virus (HIV), Hx of Known/Suspected MRSA, Hx Shingles, Hx Tuberculosis, History Other Infectious Disease - Family History Known Family History: Positive: Cardiac Disease - Social History Alcohol Use: None Hx Substance Use: No Substance Use Type: Reports: None Hx Tobacco Use: No Smoking Status (MU): Never Smoked Tobacco Have You Smoked in the Last Year: No Review of Systems Positive: Arthralgia - R hip pain Positive: Bruising All Other Systems Reviewed And Are Negative: Yes Physical Exam - Summary Physical Exam Summary: Constitutional: Well-developed, Well-nourished, Alert, Cooperative Skin: Warm, Dry. Ecchymosis over R posterior proximal femur. HENT: Normocephalic, atraumatic. Midface stable, Eyes: EOM normal, PERRL Neck: Trachea is midline. No stridor; No JVD; No step off. C-collar present from prior fall. Cardio: Rhythm regular, rate normal Heart sounds normal; Intact distal pulses; Radial pulses are 2+ and symmetric. Pulmonary/Chest wall: Effort normal; Breath sounds normal; Equal chest rise; No flail segment; No rib tenderness; No sternal tenderness Abd: Soft, Appearance normal. No distension; No tenderness Musculoskeletal: Tenderness at R posterior proximal femur, no tenderness at ankles, shoulders, elbows and knees; No joint swelling; No vertebral body tenderness; No paraspinal tenderness; No step off or deformity of the spine; Pelvis is stable to lateral compression and rock Neuro: Alert, Oriented x3, GCS 15. Strength 5/5 all extremities. Pain with R SLR Psych: Mood and affect Normal Triage Information Reviewed: Yes Vital Signs Reviewed: Yes Diagnostics - Laboratory Result Diagrams: 11/20/18 04:44 11/20/18 04:44 Lab Statement: Any lab studies that have been ordered have been reviewed, and results considered in the medical decision making process. - Radiology CXR Radiology Interpretation Completed By: ED Physician Summary of Radiographic Findings: Stable cardiomegaly. Pending official radiology report. Hip/Pelvis XR Radiology Interpretation Completed By: ED Physician Summary of Radiographic Findings: Negative for fracture. Pending official radiology report. Femur XR Radiology Interpretation Completed By: ED Physician Summary of Radiographic Findings: Negative for fracture. Pending official radiology report. - CT CT C-spine CT Interpretation Completed By: Radiologist Summary of CT Findings: 1. Nondisplaced fractures of the lateral aspects of the posterior arch of C1 which is unchanged from 11/01/2018. 2. Multilevel degenerative changes with varying degrees of spinal and neural foraminal stenosis which is similar to the prior study. 3. No acute interval fracture is identified. ED physician has reviewed this report. CT Pelvis CT Interpretation Completed By: Radiologist Summary of CT Findings: 1. Nondisplaced fracture through the lateral aspect of the right superior pubic. ramus and anterior acetabulum. 2. Subcutaneous infiltration lateral to the right hip. 3. Sigmoid diverticulosis without diverticulitis. 4. Otherwise negative CT pelvis. ED physician has reviewed this report. Adult Trauma Course/Dx - Course Course Of Treatment: 83 y/o F with recent C1 fracture, on blood thinners p/w R hip pain after GLF. - patient did not strike head, no LOC. Denies neck pain. Reporting pain to R femur/hip. - PE w R prox femur TTP. Plain films neg, still w persistant pain. Check CT pelvis and Cspine given fracture recently and fall - Diagnoses Provider Diagnoses: Fracture of pubic ramus - Physician Notifications Discussed Care Of Patient With: Giancarlo Crespo Time Discussed With Above Provider: 05:53 Instructed by Provider To: Admit As Inpatient Discharge ED - Sign-Out/Discharge Documenting (check all that apply): Patient Departure - Discharge Plan Condition: Stable Disposition: ADMITTED TO [facility] Referrals: Kanu Bhardwaj MD [Primary Care Provider] - - Billing Disposition and Condition Condition: STABLE Disposition: Admitted to [facility] - Attestation Statements Document Initiated by Rubaibamilcar: Yes Documenting Scribe: Jocelin Martin Provider For Whom Tom is Documenting (Include Credential): Cathy Orellana MD. Scribe Attestation: I, Jocelin Martin, scribed for Cathy Orellana MD. on 11/20/18 at 0630. Scribe Documentation Reviewed: Yes Provider Attestation: The documentation as recorded by the rubaibe, Jocelin Martin accurately reflects the service I personally performed and the decisions made by me, Cathy Orellana MD. Status of Scribe Document: Viewed Consult Consult: 70 - I spoke with Dr. Neil of orthopedics who will be coming to consult the pt in [facility].
--- OUTSIDE RECORDS SUMMARY | 2018-11-20 04:23 | XMS REPORT | Summary of Care ---
:1935 Author Organization [facility] Address [address] [facility] [place] [address] Care Team Providers Name Role Phone Kanu Bhardwaj MD Primary Care Provider Sherrie Moon RN Unavailable Reason for Visit Reason Comments ER F/U Patient was at ER on 11/01/18 after falling getting out of the shower. 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) (Primary Dx); Medicine MD Closed nondisplaced fracture of posterior arch of first cervical vertebra with routine healing, subsequent encounter; [address] [facility] Controlled type 2 diabetes mellitus with microalbuminuria, without long-term current use of insulin ([facility]); [place], [place] [id number] [place] [address] alf (current) use of anticoagulants; [phone] Atrial fibrillation, chronic (HCC); Essential hypertension, benign; History of fall; Normocytic anemia; Hypercalcemia; 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 losartan (COZAAR) 50 Take 1 Tab 90 [...] BY Oral Tab EC MOUTH EVERY DAY Benzonatate 200 MG TAKE ONE 30 Cap 1 08/07/2018 Active Oral Cap CAPSULE BY MOUTH EVERY 6 HOURS NEEDED FOR COUGH fluoxetine (PROZAC) Take 1 Cap 30 Cap 1 08/30/2018 Active 10 MG Oral by mouth CapIndications: DAILY. Current moderate episode of major depressive disorder without prior episode (HCC) zolpidem (AMBIEN) 5 TAKE 1 30 Tab 5 10/18/2018 Active MG Oral TABLET BY TabIndications: MOUTH AT Chronic insomnia BEDTIME NEEDED FOR SLEEP - MAXIMUM DAILY DOSE OF 1 PER DAY metoprolol Take 1 Tab 180 Tab 5 11/05/2018 Active (LOPRESSOR) 50 MG by mouth Oral TabIndications: EVERY Essential EVENING. hypertension, benign metoprolol Take 1 Tab 180 Tab 5 12/19/2017 Discontinued (LOPRESSOR) 50 MG by mouth 9 (Dose Oral TabIndications: TWICE DAILY. Adjustment) Essential hypertension, benign methotrexate 2.5 MG Take 10 mg 94 Tab 5 12/19/2017 Discontinued Oral Tab by mouth 9 (Provider EVERY 7 Discontinued) DAYS. rivaroxaban Take 20 mg 0 Discontinued (XARELTO) 20 MG Oral by mouth 9 (Provider Tab DAILY. Discontinued) atorvastatin Take 1 Tab 90 Tab 3 08/20/2018 Discontinued (LIPITOR) 40 MG Oral by mouth 9 (Provider Tab DAILY. Discontinued) amLodipine (NORVASC) Take 0.5 90 Tab 5 11/01/2018 Discontinued 10 MG Oral Tabs by 9 (Provider TabIndications: mouth DAILY. Discontinued) Essential hypertension, benign documented as of this encounter (statuses as of 11/05/2018) Active Problems Problem Noted Date Closed nondisplaced fracture of posterior arch of first cervical vertebra with routine healing CKD stage 3 due to type 2 diabetes mellitus 11/05/2018 Chronic insomnia 02/19/2018 S/P CABG (coronary artery bypass graft) 09/07/2017 Controlled type 2 diabetes mellitus with microalbuminuria 07/21/2017 alf (current) use of anticoagulants 06/30/2017 Overview: 02/21/18 - [facility], has d/c'd warfarin Managed by: [facility] Referring Provider: Veronica Indication: PAF [...] as of this encounter (statuses as of 11/05/2018) Resolved Problems Problem Noted Date Resolved Date Encounter for aftercare for long-term (current) use of 06/30/2017 06/30/2017 antibiotics Diabetes mellitus 07/23/2013 07/21/2017 documented as of this encounter (statuses as of 11/05/2018) Immunizations Name Administration Dates Next Due Influenza [...] Sign Reading Time Taken Comments Blood Pressure 104/60 11/05/2018 11:19 AM EDT Pulse 64 11/05/2018 11:19 AM EDT Temperature - - Respiratory Rate - - Oxygen Saturation - - Inhaled Oxygen Concentration - - Weight 66.7 kg (147 lb) 11/05/2018 11:19 AM EDT Height 154.9 cm (5' 1") 11/05/2018 11:19 AM EDT Body Mass Index 27.78 11/05/2018 11:19 AM EDT documented in this encounter Patient Instructions Patient InstructionsKanu Bhardwaj MD - 11/05/2018 11:20 AM EDTLow blood pressure stop amlodipine Reduce metoprolol to once daily and use at night or supper Stop atorvastatin for now You need to walk around the house daily 4-5 times You need to do the physical therapy exercise See Dr Zendejas Use barbells 3-5 lb while watching tv to strengthen the arms Blood test today Follow up me or Kristine Maldonado [employer]QU[employer]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 Subjective HISTORY OF PRESENT ILLNESS: Romina Kahn is a 83-y.o. female. HPI Follow up to [facility] emergency room for fall last week she slipped on wet bathroom floor and struch her head and neck CT scan emergency room showed no cerebrovascular accident or brain hemorrhage and C1 non displaced arch fracture She has calcium 10.6 and hemoglobin 10 with mcv 96 She was given referral to Dr Zendejas She lives with daughter Daughter and another child have modifeid the house with grab bars in bathroom and several ramps no further falls She uses wheeled walker and gets home physical therapy twice weekly she is given daily leg and arm exercise To do but daughter says she does not do them she is starting to walk around the house do 4-5 laps at least once daily She denies loss of consciousness or cardiovascular symptoms she did have orthostatic light headed symptoms earlier this weekend She has lost weight Wt Readings from Last 3 Encounters: 11/05/18 147 lb (66.7 kg) 11/01/18 149 lb (67.6 kg) 09/06/18 147 lb (66.7 kg) BP Readings from Last 3 Encounters: 11/05/18 104/60 11/01/18 110/60 09/06/18 96/54 blood pressure sitting 120/82 Blood pressure standing 128/80 [facility] emergency room had contacted Dr Davis whop recommended that the NOAC xarelto be stopped Patient Active Problem List Diagnosis Essential hypertension, benign Restless leg syndrome Gallstone pancreatitis Pancreatic insufficiency History of CVA (cerebrovascular accident) Carotid stenosis, bilateral Osteoarthritis, knee Mixed hyperlipidemia GERD (gastroesophageal reflux disease) Left bundle branch block 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 (HCC) Valvular heart disease Atrial fibrillation, chronic (HCC) 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 Controlled type 2 diabetes mellitus with microalbuminuria ([facility]) S/P CABG (coronary artery bypass graft) Chronic insomnia Closed nondisplaced fracture of posterior arch of first cervical vertebra with routine healing CKD stage 3 due to type 2 diabetes mellitus ([facility]) Family History Problem Relation Age of Onset Heart Mother 59 Heart Brother CABG COPD Father COPD Sister Kidney Sister Arthritis Daughter knee replacement Hypertension Daughter Arthritis Son shoulder repair Hypertension Son Hypertension Son Cancer Son colon ca Current Outpatient Medications Medication Sig Acetaminophen (TYLENOL 8 HOUR PO) Take by mouth. Benzonatate 200 MG Oral Cap TAKE ONE [...] Tab Take 1 Tab by mouth DAILY. Methotrexate 2.5 MG Oral Tab TAKE 4 TABLETS BY MOUTH EVERY 7 DAYS metoprolol (LOPRESSOR) 50 MG Oral Tab Take 1 Tab by mouth EVERY EVENING. 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 ROS no vision changes No cardiovascular or pulmonary symptoms no gastro-intestinal symptoms no genito- urinary symptoms denies depression Objective PHYSICAL EXAM: VITALS: BP 104/60 | Pulse 64 | Ht 5' 1" (1.549 m) | Wt 147 lb (66.7 kg) | BMI 27.78 kg/m Body mass index is 27.78 kg/m. Physical Exam no apparent distress hard cervical collar is on Cranial nerves are normal. Fundi are normal with sharp disc margins, no papilledema, hemorrhages or exudates noted. GERRY. EOM's intact. Neck supple. No cranial or carotid bruits. Good carotid upstroke. DTR's, motor power and sensation normal and symmetric. Babinski sign absent. Mental status normal. Gait-uses wheeled walker independently. Cerebellar function is normal. Bilateral Hip flexor weakness 4/5 The get up and go test is abnormal (the patient cannot arising from chair without using arms to lift off). I spent 40 minutes with the patient, greater than half of this time in direct face to face counseling regarding the condition and the plan of care. ASSESSMENT / IMPRESSION: ICD-9-CM ICD-10-CM 1. CKD stage 3 due to type 2 diabetes mellitus ([facility]) monitor creatinine avoid excess non steroidal anti-inflammatory medications 250.40 E11.22 COMPREHENSIVE METABOLIC PANEL 585.3 N18.3 2. Closed nondisplaced fracture of posterior arch of first cervical vertebra with routine healing, subsequent encounter neurosurgical follow up consult visit V54.17 S12.031D 3. Controlled type 2 diabetes mellitus with microalbuminuria, without long-term current use of insulin ([facility]) no medications last hemoglobin A1C at goal 250.40 [address]11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 this is stopped V58.61 Z79.01 5. Atrial fibrillation, chronic ([facility]) 427.31 I48.2 6. Essential hypertension, benign at goal on the low side stop amlodipine and reduce dose metoprolol 401.1 I10 metoprolol (LOPRESSOR) 50 MG Oral Tab 7. History of fall stop statin reduce dose beta hiram and stop amlodipine follow up 3-4 weeks continue home physical therapy and do her own leg Exercises daily walk around house with wheeled walker at least 5 laps V15.88 Z91.81 8. Normocytic anemia check retics hemoglobin b12 285.9 D64.9 CBC WITH DIFFERENTIAL VITAMIN B12 / FOLATE THYROID STIMULATING HORMONE COMPREHENSIVE METABOLIC PANEL INTACT PTH RETICULOCYTE COUNT 9. Hypercalcemia check pth 275.42 E83.52 10. 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 4 weeks falls Kanu Bhardwaj MD 11/05/2018 12:06 documented in this encounter Plan of Treatment Date Type Specialty Care Team Description 12/03/2018 Office Visit Internal Medicine Kanu Bhardwaj MD [address] [place] [address] 12/27/2018 Office Visit Pulmonary Estuardo Dietrich MD [address] [place] [address] [phone] Name Type Priority Associated Diagnoses Date/Time CBC WITH DIFFERENTIAL Lab Routine Normocytic anemia 11/05/2018 12:02 PM EDT VITAMIN B12 / FOLATE Lab Routine Normocytic anemia 11/05/2018 12:02 PM EDT THYROID STIMULATING Lab Routine Normocytic anemia 11/05/2018 12:02 PM HORMONE EDT COMPREHENSIVE METABOLIC Lab Routine CKD stage 3 due to type 11/05/2018 12: 02 PM PANEL 2 diabetes mellitus EDT (HCC) Normocytic anemia INTACT PTH Lab Routine Normocytic anemia 11/05/2018 12:02 PM EDT RETICULOCYTE COUNT Lab Routine Normocytic anemia 11/05/2018 12:02 PM EDT Health Maintenance Due Date Last Done Comments [...] Type Problems Progress Blood Pressure Blood Pressure 104/60 No [place], < 140/90 (11/05/2018 Kanu Ndiaye, 11:19 AM EDT) Note: Hypertension Care Plan Based on [...] Educational Resources. record my blood pressure results. [employer] is safe and secure way for you [...] Educational Resources: National Heart, Lung, & Blood [place] http://nhlbi.nih.gov/hbp/index.html The DASH Diet Eating Plan http://www.nhlbi.nih.gov/health/health-topics/ topics/dash/ Academy of Nutrition & DIetetics http://eatright.org National Smoking Cessation Site http://smokefree.gov Blood Pressure < Blood Pressure 104/60 (11/05/2018 No Mehul MaldonadoonKEILA 140/90 11:19 AM EDT) Note: This is an individualized treatment [...] of your depression. Diabetes < 7.0 Diabetes 5.5 (11/01/2018 2:59 PM EDT) Kanu Chatterjee MD Note: Diabetes [...] my blood sugar results (including dextrose sticks). [facility] safe and secure way for you [...] towards quitting. Glycohemoglobin A1c < 7.0 Diabetes 5.5 (11/01/2018 2:59 No Kristine Maldonado FNP PM EDT) Note: This is an individualized treatment (diabetes control, HgbA1C) goal for Romina Kahn: Displayed above is your progress towards your HgbA1C goal. Your goal is shown above (on the left); your most recent HgbA1C is shown on the right. Note that lower numbers are better. Weight loss vs. 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 Long-term (current) use of anticoagulants Atrial fibrillation, chronic (HCC) Atrial fibrillation Essential hypertension, benign History of fall Personal history of fall Normocytic anemia Anemia, unspecified Hypercalcemia 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 (HCC ) documented in this encounter Insurance Payer Benefit Plan / Subscriber ID Effective Dates Phone Address Type Group MEDICARE MEDICARE PART A xxxxxxxxxxx 2002-Present Medicare & B [facility] [employer] [facility] xxxxxxxxxxx 2017-Present [facility] OPT[employer] Guarantor Name Account Type Relation to Date of Phone Billing Address Patient Romina Kahn Personal/Family 1935 [address] [phone] [place], [place] (Work) [address] documented as of this encounter Advance Directives Type Date Recorded 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
--- OUTSIDE RECORDS SUMMARY | 2018-11-20 04:23 | XMS REPORT | Continuity of Care Document ---
:1935 External Reference #:[id number] Author Name FATEMEH Bauman (transmitted by agent of provider Denita Parkinson) Address [address] [place] [address] Care Team Providers Name Role Phone Kanu Bhardwaj MD - Internal Care Team Information Service Desk Agent Medicine Problems Active Problems Provider Date Polyneuropathy Jody Godoy M.D. Onset: 07/21/2015 Carpal tunnel syndrome Jody Godoy M.D. Onset: 07/21/2015 Localized, primary osteoarthritis of the Carla Workman MD Onset: 03/08/2016 shoulder region Rheumatoid arthritis Carla Workman MD Onset: 06/17/2016 Prosthetic arthroplasty of shoulder Carla Workman MD Onset: 06/17/2016 Social History Type Date Description Comments Sex Unknown ETOH Use Denies alcohol use Tobacco Use Start: Unknown Patient has never smoked Recreational Drug Use Denies Drug Use Smoking Status Reviewed: 11/14/18 Patient has never smoked Exercise Type/Frequency Does not exercise Allergies, Adverse Reactions, Alerts Active Allergies Reaction Severity Comments Date Oxycodone 12/23/2013 Augmentin 04/20/2015 Amoxicillin 04/20/2015 Contrast Iodianted Agents 04/20/2015 Amentia 04/20/2015 Remicade hives 06/30/2016 Medications Active Medications SIG Qnty Indications Ordering Provider Date Xarelto 1 by mouth every 90tabs I48.3 Donaldo Davis, 08/22/2018 15mg Tablets day M.D. Amlodipine Besylate 1 by mouth every 30tabs Donaldo Davsi, 07/13/2018 5mg day M.D. Tablets Lasix 1 by mouth every 90tabs I25.10 Donaldoandrez Davis, 07/13/2018 20mg Tablets day M.D. Amiodarone HCL 1 tab a day 60tabs I48.3 Donaldoandrez Davis, 03/28/2018 200mg M.D. Tablets Metoprolol Tartrate 1 by mouth twice Kanu Bhardwaj, 03/09/2017 50mg a day Tablets Ropinirole HCL 1 at hs aKnu Bhardwaj, 02/24/2017 2mg MD Prolia 60 mg sc q6mon 60mg M81.0 Annsatnam Kuldip, 02/24/2017 60mg/ml Solution NET MAKER Vitamin D3 Ultra 1 by mouth every 90caps Estuardo Christiansen, 11/29/2016 Strength day NET MAKER 5000Unit Capsules Folic Acid Take 1 Tablet By 90tabs Z79.899 Estuardo Christiansen, 07/15/2016 1mg Tablets Mouth Every NET MAKER Morning Ambien 1 po qhs prn Unknown 5mg Losartan Potassium Take 1 Tablet By Unknown 50mg Mouth Every Day Tablets Vitamin B12 2 by mouth every Unknown 1000mcg day Tablets ER Atorvastatin Calcium 1 by mouth every Unknown 40mg day Tablets Pantoprazole Sodium 1 by mouth every Unknown 40mg day Tablets DR History Medications Diclofenac Sodium apply 2 grams on 100gm M25.511 Estuardo Christiansen, 2018 - RT shoulder twice [facility] 08/21/2018 1% Gel daily Medications Administered in Office Medication SIG Qnty Indications Ordering Provider Date Prolia Injection, Denosumab, Estuardo Christiansen, [facility] 03/26/2018 1MG Injection Prolia Injection, Denosumab, Nurse Visit 09/22/2017 1MG Injection Prolia Injection, Denosumab, Estuardo Christiansen, [facility] 02/24/2017 1MG Injection Depomedrol 40MG Adriel Rice MD 02/17/2016 Injection Prolia Injection, Denosumab, Marvin Negro M.D. 01/06/2016 1MG Injection Prolia Injection, Denosumab, Nurse Visit 06/24/2015 1MG Injection Immunizations CPT Code Status Date Vaccine Reaction Lot # [id number] Given 12/19/2017 Fluzone High Dose no immediate reaction [id number] Given 01/06/2016 Influ Virus Vaccine, [id number] Quadrivalent, Split Virus, [place] [address] Given 10/03/2014 Pneumococcal Conjugate Vaccine 13 Valent For Intramuscular Use 55726 Given Unknown Pneumonia Vaccine Vital Signs Date Vital Result Comment 11/14/2018 1:08pm Height 61 inches 5'1" Weight 156.00 lb BP Systolic 120 mmHg BP Diastolic 62 mmHg Pain Level 5 BMI (Body Mass Index) 29.5 kg/m2 08/22/2018 9:25am Height 61 inches 5'1" Weight 156.00 lb Clothes/shoes Heart Rate 68 /min Radial BP Systolic Sitting 122 mmHg Lue reg cuff BP Diastolic Sitting 40 mmHg Lue reg cuff BMI (Body Mass Index) 29.5 kg/m2 Ejection Fraction 40-45% Echo 07/02/2018 Results Test Date Facility Test Result H/L Range Note CBC W/Auto 08/21/2018 [facility] White Blood 9.4 10^3/uL Normal 3.5-10.[address] [place] [address] [phone] Red Blood Count 3.46 10^6/uL Low 3.70-4.87 Hemoglobin 10.2 g/dL Low 12.0-16.0 Hematocrit 31 % Low 35-47 Mean Corpuscular Volume 91 fL Normal 80-97 Mean Corpuscular Hemoglobin 29 pg Normal 27-31 Mean Corpuscular HGB Conc 33 g/dL Normal 31-36 Red Cell Distribution Width 20 % High 10-15 Platelet Count 137 10^3/uL Low 150-450 Mean Platelet Volume 8.6 fL Normal 7.4-10.4 Abs Neutrophils 6.8 10^3/uL Normal 1.5-7.7 Abs Lymphocytes 1.9 10^3/uL Normal 1.0-4.8 Abs Monocytes 0.6 10^3/uL Normal 0-0.8 Abs Eosinophils 0.0 10^3/uL Normal 0-0.6 Abs Basophils 0.1 10^3/uL Normal 0-0.2 Abs Nucleated RBC 0.0 10^3/uL Granulocyte % 72.5 % Lymphocyte % 20.2 % Monocyte % 6.3 % Eosinophil % 0.5 % Basophil % 0.5 % Nucleated Red Blood Cells % 0.0 CMP Panel 08/21/2018 [facility] Sodium 136 mmol/L Normal 135- [address] [place] [address] [phone] Potassium 3.9 mmol/L Normal 3.5-5.0 Chloride 98 mmol/L Low 101-111 Co2 Carbon Dioxide 30 mmol/L Normal 22-32 Anion Gap 8 mmol/L Normal 2-11 Glucose 121 mg/dL High 70-100 Blood Urea Nitrogen 31 mg/dL High 6-24 Creatinine 1.48 mg/dL High 0.51-0.95 BUN/Creatinine Ratio 20.9 High 8-20 Calcium 10.7 mg/dL High 8.6-10.3 Total Protein 6.5 g/dL Normal 6.4-8.9 Albumin 3.4 g/dL Normal 3.2-5.2 Globulin 3.1 g/dL Normal 2-4 Albumin/Globulin Ratio 1.1 Normal 1-3 Total Bilirubin 1.00 mg/dL Normal 0.2-1.0 Alkaline Phosphatase 69 U/L Normal 34-104 Alt 19 U/L Normal 7-52 Ast 31 U/L Normal 13-39 Egfr Non- 33.8 >60 Egfr 41.0 >60 1 Laboratory test 08/21/2018 [facility] C Reactive 14.97 mg/L High <8.[address] [place] [address] [phone] Erythrocyte Sed Rate 43 mm/Hr High 0-29 Vitamin D Total 25(Oh) 55.3 ng/mL High 20-50 2 1 Because ethnic data is not always [...] 5 Kidney failure <15 (or dialysis) 2 Total 25-Hydroxyvitamin D2 and D3 (25-OH-VitD) <10 ng/mL (severe deficiency) 10-19 ng/mL (mild to moderate deficiency) 20-50 ng/mL (optimum levels) 51-80 ng/mL (increased risk of hypercalciuria) >80 ng/mL (toxicity possible) Procedures Date Code Description Status 10/29/2018 05166 Pace Maker Eval W/Iterative Adjment Dual Lead Completed 10/29/2018 47476 Pace Maker Eval W/Iterative Adjment Dual Lead Completed 09/08/2018 46280 EKG, Interpretation Only Completed 07/27/2018 69492 Pace Maker Eval W/Iterative Adjment Dual Lead Completed 07/27/2018 63092 Pace Maker Eval W/Iterative Adjment Dual Lead Completed 07/05/2018 53224 Pace Maker Eval W/Iterative Adjment Dual Lead Completed 07/05/2018 44250 EKG, Interpretation Only Completed 07/04/2018 96788 Moderate Sedation Services; Same Phys Intl 15 Mins; PT Completed >= 5 Years 07/04/2018 31488 EKG, Interpretation Only Completed 07/04/2018 23564 Perm Pacemaker Av Sequential Atrial And Ventricular Completed 07/02/2018 77769 ECHO Transthorasic Realtime 2D W Doppler & Color Flow Completed Hosp 04/09/2018 [id number] Bone Mineral Density Test Completed 05/21/2015 [id number] Bone Mineral Density Test Completed Medical Devices Description No Information Available Encounters Type Date Location Provider Dx Diagnosis Office Visit 09/13/2018 [facility] Bailey Dover, I48.92 Unspecified atrial 9:30a D.O. flutter I49.5 Sick sinus syndrome I50.20 Unspecified systolic (congestive) heart failure I11.0 Hypertensive heart disease with heart failure I25.10 Athscl heart disease of [place] coronary artery w/o ang pctrs M06.9 Rheumatoid arthritis, unspecified Office Visit 09/12/2018 [facility] N17.9 Acute kidney 11:18a Assoc,jose antonio Solis, STATISTICAL PROGRAMMER ANALYST failure, Hospitalists unspecified R29.6 Repeated falls D69.6 Thrombocytopenia, unspecified Office Visit 09/11/2018 [facility] N17.9 Acute kidney 11:17a Assoc,jose antonio Solis, STATISTICAL PROGRAMMER ANALYST failure, Hospitalists unspecified D69.6 Thrombocytopenia, unspecified R29.6 Repeated falls Office Visit 09/10/2018 [facility] Shalini N17.9 Acute kidney 11:17a Assoc,jose antonio Solis, STATISTICAL PROGRAMMER ANALYST failure, Hospitalists unspecified R29.6 Repeated falls D69.6 Thrombocytopenia, unspecified Office Visit 09/09/2018 [facility] Shalini N17.9 Acute kidney 11:17a Assoc,jose antonio Solis, STATISTICAL PROGRAMMER ANALYST failure, Hospitalists unspecified R29.6 Repeated falls I95.9 Hypotension, unspecified D69.6 Thrombocytopenia, unspecified Office Visit 09/08/2018 [facility] Josesito N17.9 Acute kidney 11:16a Assocjose antonio M.D. failure, Hospitalists unspecified R29.6 Repeated falls I95.9 Hypotension, unspecified D69.6 Thrombocytopenia, unspecified Office Visit 09/07/2018 [facility] Ivania Augustine, N17.9 Acute kidney 11:16a Assocjose antonio M.D. failure, Hospitalists unspecified R29.6 Repeated falls I10 Essential (primary) hypertension Office Visit 08/22/2018 9:45a [facility] Donaldo Martell I49.5 Sick sinus Of Caty Davis M.D. 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 I48.92 Unspecified atrial flutter I10 Essential (primary) hypertension Office Visit 07/04/2018 1:03p [facility] Rosmery I11.0 Hypertensive heart Assocjose antonio MD disease with heart Hospitalists failure I50.9 Heart failure, unspecified I49.5 Sick sinus syndrome I48.92 Unspecified atrial flutter N39.0 Urinary tract infection, site not specified B96.20 Unsp Escherichia coli as the cause of diseases classd elswhr M06.9 Rheumatoid arthritis, unspecified Office Visit 07/03/2018 1:03p [facility] Rosmery I11.0 Hypertensive heart jose antonio Alexandre MD disease with heart Hospitalists failure I50.9 Heart failure, unspecified I49.5 Sick sinus syndrome I48.92 Unspecified atrial flutter N39.0 Urinary tract infection, site not specified B96.20 Unsp Escherichia coli as the cause of diseases classd elswhr Office Visit 07/02/2018 [facility] Ivania Augustine, I11.0 Hypertensive heart 1:03p jose antonio Alexandre M.D. disease with heart Hospitalists failure I50.9 Heart failure, unspecified I48.92 Unspecified atrial flutter I49.5 Sick sinus syndrome B96.20 Unsp Escherichia coli as the cause of diseases classd elswhr N39.0 Urinary tract infection, site not specified Office Visit 07/02/2018 9:35a [facility] Donaldo Martell I49.5 Sick sinus Of Caty Davis M.D. 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 I11.0 Hypertensive 1:02p jose antonio Alexandre MD heart disease Hospitalists with heart failure I50.9 Heart failure, unspecified N39.0 Urinary tract infection, site not specified B96.20 Unsp Escherichia coli as the cause of diseases classd elswhr I48.92 Unspecified atrial flutter Office Visit 06/30/2018 [facility] I11.0 Hypertensive 1:02p jose antonio Alexandre MD heart disease Hospitalists with heart failure I50.9 Heart failure, unspecified N39.0 Urinary tract infection, site not specified B96.20 Unsp Escherichia coli as the cause of diseases classd elswhr I48.92 Unspecified atrial flutter Office Visit 06/29/2018 1:02p [facility] I50.9 Heart failure, Assoc,pc Mahi, PA-C unspecified Hospitalists I11.0 Hypertensive heart disease with heart failure I16.0 Hypertensive urgency N39.0 Urinary tract infection, site not specified R00.0 Tachycardia, unspecified Office Visit 2018 10:30a Rheumatology Estuardo Christiansen, M05.79 [facility] NET MAKER w rheu factor mult site w/o org/sys involv R05 Cough I48.3 Typical atrial flutter M25.511 Pain in right shoulder M81.0 Age-related osteoporosis w/o current pathological fracture Z79.899 Other alf (current) drug therapy Assessments Date Code Description Provider 11/14/2018 S12.9xxA Closed fracture of cervical spine FATEMEH Bauman 10/29/2018 I49.5 Sick sinus syndrome Ica Pacer Schedule 10/29/2018 I50.20 Unspecified systolic (congestive) Ica Pacer Schedule heart failure 10/29/2018 I48.92 Unspecified atrial flutter Ica Pacer Schedule 10/29/2018 Z95.0 Presence of cardiac pacemaker Donaldo Davis M.D. 10/29/2018 Z95.0 Presence of cardiac pacemaker Ica Pacer Schedule 09/13/2018 I48.92 Unspecified atrial flutter Bailey Dover D.O. 09/13/2018 I49.5 Sick sinus syndrome Bailey [place] D.O. 09/13/2018 I11.0 Hypertensive heart disease with heart Bailey [place] D.O. failure 09/13/2018 I50.20 Unspecified systolic (congestive) Bailey [place] D.O. heart failure 09/13/2018 I25.10 Atherosclerotic heart disease of Bailey [place] D.O. [place] coronary artery with 09/13/2018 M06.9 Rheumatoid arthritis, unspecified Bailey Dover D.O. 09/12/2018 N17.9 Acute kidney failure, unspecified Shalini Solis, STATISTICAL PROGRAMMER ANALYST 09/12/2018 R29.6 Repeated falls Shalini Solis, STATISTICAL PROGRAMMER ANALYST 09/12/2018 D69.6 Thrombocytopenia, unspecified Shalini [place], STATISTICAL PROGRAMMER ANALYST 09/11/2018 N17.9 Acute kidney failure, unspecified Shalini Will, STATISTICAL PROGRAMMER ANALYST 09/11/2018 D69.6 Thrombocytopenia, unspecified Shalini Will, STATISTICAL PROGRAMMER ANALYST 09/11/2018 R29.6 Repeated falls Shalini [place], STATISTICAL PROGRAMMER ANALYST 09/10/2018 N17.9 Acute kidney failure, unspecified Shalini [place], STATISTICAL PROGRAMMER ANALYST 09/10/2018 R29.6 Repeated falls Shalini Will, STATISTICAL PROGRAMMER ANALYST 09/10/2018 D69.6 Thrombocytopenia, unspecified Shalini [place], STATISTICAL PROGRAMMER ANALYST 09/09/2018 N17.9 Acute kidney failure, unspecified Shalini [place], STATISTICAL PROGRAMMER ANALYST 09/09/2018 R29.6 Repeated falls Shalini Will, STATISTICAL PROGRAMMER ANALYST 09/09/2018 I95.9 Hypotension, unspecified Shalini [place], STATISTICAL PROGRAMMER ANALYST 09/09/2018 D69.6 Thrombocytopenia, unspecified Shalini [place], STATISTICAL PROGRAMMER ANALYST 09/08/2018 R94.31 Abnormal electrocardiogram [ECG] Anshu Freire M.D. [EKG] 09/08/2018 N17.9 Acute kidney failure, unspecified Josesito MoussallCuca taylor 09/08/2018 R29.6 Repeated falls Josesito Davis M.D. 09/08/2018 I95.9 Hypotension, unspecified Josesito GeovannyussCuca jaquez 09/08/2018 D69.6 Thrombocytopenia, unspecified Josesito MoussCuca jaquez 09/07/2018 N17.9 Acute kidney failure, unspecified Ivania Augustine M.D. 09/07/2018 R29.6 Repeated falls Ivania Augustine M.D. 09/07/2018 I10 Essential (primary) hypertension Ivania Augustine M.D. 08/22/2018 I49.5 Sick sinus syndrome Donaldo Davis M.D. 08/22/2018 Z95.0 Presence of cardiac pacemaker Donaldo Davis M.D. 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 [place] coronary artery with 07/27/2018 I49.5 Sick sinus syndrome Ica Pacer Schedule 07/27/2018 Z95.0 Presence of cardiac pacemaker Donaldo Davis M.D. 07/27/2018 Z95.0 Presence of cardiac pacemaker Ica Pacer Schedule 07/13/2018 I49.5 Sick sinus syndrome Donaldo Davis M.D. 07/13/2018 Z95.0 Presence of cardiac pacemaker Donaldo Davis M.D. 07/13/2018 I25.10 Atherosclerotic heart disease of Donaldo Davis M.D. [place] coronary artery with 07/05/2018 Z95.0 Presence of cardiac pacemaker Zahra Patel M.D. 07/05/2018 R94.31 Abnormal electrocardiogram [ECG] Anshu Freire M.D. [EKG] 07/05/2018 Z95.0 Presence of cardiac pacemaker Zahra Patel M.D. 07/05/2018 I49.5 Sick sinus syndrome Rosmery Machado MD 07/05/2018 N39.0 Urinary tract infection, site not Rosmery Machado MD specified 07/05/2018 B96.20 Unsp Escherichia coli as the cause of Rosmery Machado MD diseases classd elswhr 07/05/2018 Z95.0 Presence of cardiac pacemaker Rosmery Machado MD 07/04/2018 R94.31 Abnormal electrocardiogram [ECG] Anshu Freire M.D. [EKG] 07/04/2018 I49.5 Sick sinus syndrome Zahra Patel M.D. 07/04/2018 I25.10 Atherosclerotic heart disease of Zahra Patel M.D. [place] coronary artery with 07/04/2018 Z95.1 Presence of aortocoronary bypass Zahra Patel M.D. graft 07/04/2018 I48.92 Unspecified atrial flutter Zahra Patel M.D. 07/04/2018 I10 Essential (primary) hypertension Zahra Patel M.D. 07/04/2018 I11.0 Hypertensive heart disease with heart Rosmery Machado MD failure 07/04/2018 Z95.0 Presence of cardiac pacemaker Zahra Patel M.D. 07/04/2018 I50.9 Heart failure, unspecified Rosmery Machado MD 07/04/2018 I49.5 Sick sinus syndrome Rosmery Machado MD 07/04/2018 I48.92 Unspecified atrial flutter Rosmery Machado MD 07/04/2018 N39.0 Urinary tract infection, site not Rosmery Machado MD specified 07/04/2018 B96.20 Unsp Escherichia coli as the cause of Rosmery Machado MD diseases classd elsr 07/04/2018 M06.9 Rheumatoid arthritis, unspecified Rosmery Machado MD 07/03/2018 I49.5 Sick sinus syndrome Cherelle Miller, STATISTICAL PROGRAMMER ANALYST 07/03/2018 I11.0 Hypertensive heart disease with heart Rosmery Machado MD failure 07/03/2018 I50.9 Heart failure, unspecified Rosmery Machado MD 07/03/2018 I49.5 Sick sinus syndrome Rosmery Machado MD 07/03/2018 I48.92 Unspecified atrial flutter Rosmery Machado MD 07/03/2018 N39.0 Urinary tract infection, site not Rosmery Machado MD specified 07/03/2018 B96.20 Unsp Escherichia coli as the cause of Rosmery Machado MD diseases classd elsr 07/02/2018 I11.0 Hypertensive heart disease with heart Ivania Augustine M.D. failure 07/02/2018 I50.9 Heart failure, unspecified Ivania Augustine M.D. 07/02/2018 I49.5 Sick sinus syndrome Donaldo Davis M.D. 07/02/2018 I48.92 Unspecified atrial flutter Ivania Augustine M.D. 07/02/2018 I49.5 Sick sinus syndrome Ivania Augustine M.D. 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 diseases classd elsr 07/02/2018 N39.0 Urinary tract infection, site not Ivania Augustine M.D. specified 07/02/2018 Z95.1 Presence of aortocoronary bypass Donaldo Davis M.D. graft 07/02/2018 I48.92 Unspecified atrial flutter Donaldo Davis M.D. 07/02/2018 I50.9 Heart failure, unspecified Donaldo Davis M.D. 07/01/2018 I11.0 Hypertensive heart disease with heart Lluvia Moe MD failure 07/01/2018 I50.9 Heart failure, unspecified Lluvia Moe MD 07/01/2018 N39.0 Urinary tract infection, site not Lluvia Moe MD specified 07/01/2018 B96.20 Unsp Escherichia coli as the cause of Lluvia Moe MD diseases classd [facility] 07/01/2018 I48.92 Unspecified atrial flutter Lluvia Moe MD 06/30/2018 I11.0 Hypertensive heart disease with heart Lluvia Moe MD failure 06/30/2018 I50.9 Heart failure, unspecified Lluvia Moe MD 06/30/2018 N39.0 Urinary tract infection, site not Lluvia Moe MD specified 06/30/2018 B96.20 Unsp Escherichia coli as the cause of Lluvia Moe MD diseases classd [facility] 06/30/2018 I48.92 Unspecified atrial flutter Lluvia Moe MD 06/29/2018 I50.9 Heart failure, unspecified Sherin Car'lexi, PA-C 06/29/2018 I11.0 Hypertensive heart disease with heart Sherin O'lexi, PA-C failure 06/29/2018 I16.0 Hypertensive urgency Sherin O'lexi, PA-C 06/29/2018 N39.0 Urinary tract infection, site not Sherin O'lexi, PA-C specified 06/29/2018 R00.0 Tachycardia, unspecified Sherin O'lexi, PA-C 2018 M05.79 Rheumatoid arthritis with rheumatoid Andrewofia Kuldip, NET MAKER factor of multiple site 2018 R05 Cough Zsofia Kuldip, NET MAKER 2018 I48.3 Typical atrial flutter Estuardo Christiansen, NET MAKER 2018 M25.511 Pain in right shoulder KEILA Fraga 2018 M81.0 Age-related osteoporosis without KEILA Fraga current pathological fractu 2018 Z79.899 Other alf (current) drug KEILA Fraga therapy Plan of Treatment Future Appointment(s):12/12/2018 9:30 am - Kamar Womack MD at [facility]12/07/2018 9:45 am - Donaldo Davis M.D. at [facility]11/14/2018 - Jennifer Suero, PAS12.9xxA Fracture of neck , unspecified, initial encounterFollow up:RTC after imaging is complete Functional Status Description No Information Available Mental Status Description No Information Available Referrals Description No Information Available
[2018-11-20 05:06] LABS: ABS Eosinophils 0.1 10^3/ul (0-0.6); ABS Lymphocytes 1.7 10^3/ul (1.0-4.8); ABS Monocytes 0.5 10^3/ul (0-0.8); ABS Neutrophils 3.4 10^3/ul (1.5-7.7); Eosinophil % 1.4 %; Hematocrit 30 % (35-47); Hemoglobin 9.8 g/dL (12.0-16.0); INR 1.14 (0.82-1.09); Lymphocyte % 29.9 %; Mean Corpuscular HGB Conc 33 g/dL (31-36); Mean Corpuscular Hemoglobin 31 pg (27-31); Mean Corpuscular Volume 95 fL (80-97); Mean Platelet Volume 8.7 fL (7.4-10.4); Nucleated Red Blood Cells % 0.1; Platelet Count 257 10^3/uL (150-450); Red Blood Count 3.16 10^6 /uL (3.70-4.87); Red Cell Distribution Width 15 % (10-15); White Blood Count 5.7 10^3/uL (3.5-10.8)
[2018-11-20] MEDS ORDERED: Acetaminophen TAB* 325 MG PO ONE (05:08)
[2018-11-20 05:20] LABS: Albumin 3.7 g/dL (3.2-5.2); Albumin/Globulin Ratio 1.1 (1-3); BUN/Creatinine Ratio 17.7 (8-20); EGFR African American 55.9 (>60); EGFR Non-African American 46.2 (>60); Globulin 3.5 g/dL (2-4); Total Bilirubin 0.8 mg/dL (0.2-1.0); Total Protein 7.2 g/dL (6.4-8.9)
[2018-11-20] MEDS ORDERED: fentaNYL* 50 MCG/ML 2 ML VIAL (100 MCG VIAL) IV SLOW PU ONE (07:55)
[2018-11-20] MEDS ORDERED: Morphine INJ* 2 MG/ML 1 ML SYRINGE (TWO MG - NEW SYRINGE VERSION) IV PRN (08:18)
[2018-11-20] MEDS ORDERED: Acetaminophen TAB* 325 MG PO PRN (08:20)
[2018-11-20] MEDS ORDERED: NS 0.9% 1000 ML** 1,000 ML IV SCH (08:30)
[2018-11-20] MEDS ORDERED: Zolpidem TAB* 5 MG PO PRN (09:00)
[2018-11-20] MEDS ORDERED: Cholecalciferol TAB* 1000 UNITS PO SCH (09:00)
[2018-11-20 09:03] LABS: Urine Appearance Clear; Urine Bacteria Absent (Absent); Urine Bilirubin Negative (Negative); Urine Blood Negative (Negative); Urine Color Straw; Urine Glucose Negative (Negative); Urine Ketones Negative (Negative); Urine Nitrite Negative (Negative); Urine Protein Negative (Negative); Urine Red Blood Cell Trace(0-2/hpf) (Absent); Urine Specific Gravity 1.009 (1.010-1.030); Urine Urobilinogen Negative (Negative); Urine White Blood Cell Trace(0-5/hpf) (Absent)
[2018-11-20 09:53] LABS: TSH (Thyroid Stimulating Horm) 0.87 mcIU/mL (0.34-5.60)
[2018-11-20 10:07] LABS: Vitamin D Total 25(OH) 64.1 ng/mL (20-50)
[2018-11-20] MEDS: Cyanocobalamin TAB* 500 MCG PO SCH (11:17)
[2018-11-20] MEDS: Losartan TAB* 25 MG PO SCH (11:26)
[2018-11-20] MEDS: Folic Acid TAB* 1 MG PO SCH (11:26)
[2018-11-20] MEDS: HYDROcodone/ACETAMIN 5-325 MG* 1 TAB PO PRN ×2 (11:27→22:47)
[2018-11-20] MEDS: Metoprolol Tartrate TAB* 50 mg PO SCH ×2 (11:27→21:11)
[2018-11-20] MEDS: Amiodarone TAB* 200 MG PO SCH (11:27)
[2018-11-20] MEDS: Pantoprazole TAB * 40 MG TAB PO SCH (11:27)
--- NOTE | 2018-11-20 12:07 | CONSULT ---
Consult Consult: Please see full dictated consult for further detail On exam patient has no pain with RLE log roll or heel strike. Flexion of the right hip produces muscle spasm in the anterior thigh, but no complaint of severe pain. CT confirms a nondisplaced R pubic rami and acetabular fracture. CT was reviewed with Dr Galicia, she may be WBAT with assistive device. needs standing pelvis repeat xrays after ambulation. Will follow loosely in house, if patient is unable to tolerate/ severe pain with ambulation please alert orthopedics.
[2018-11-20 14:47] LABS: BUN/Creatinine Ratio 16.4 (8-20); Calcium 10.2 mg/dL (8.6-10.3); EGFR African American 57.7 (>60); EGFR Non-African American 47.7 (>60); Potassium 4.2 mmol/L (3.5-5.0)
[2018-11-20] MEDS: Heparin VIAL(*) 5000 UNITS/ML VIAL (FIVE THOUSAND) SUBCUT SCH ×2 (16:19→21:13)
--- NOTE | 2018-11-20 17:14 | HP ---
CC: Dr. Bhardwaj; Dr. Davis HISTORY AND PHYSICAL: DATE OF ADMISSION: 11/20/18 TIME OF EVALUATION: 8:10 a.m. PRIMARY CARE PROVIDER: Dr. Bhardwaj. BLADE GRINDER: Dr. Davis. CHIEF COMPLAINT: "I fell again." HISTORY OF PRESENT ILLNESS: Ms. Kahn is an 83-year-old female with a past medical history of hype rtension; hyperlipidemia; rheumatoid arthritis; type 2 diabetes; CVA in 2013; SVT; atrial flutter; le ft bundle-branch block; coronary artery disease, status post CABG; restless leg syndrome; systolic co ngestive heart failure with an ejection fraction of 40% to 45%; carotid stenosis, status post bilater al endarterectomy; who presented to the emergency room after sustaining a fall at home. The patient was admitted to [facility] in August 2018. At that time, she had recurrent falls, acute kidney in jury, and anemia. At that point, her anticoagulation with Xarelto was discontinued, she was on Eliqu is, and she was discharged to [facility] for rehab. The patient reports being discharged home after 3 weeks and she presented to the emergency room on after another mechanical fall at home. At that time, she was found to have a nondisplaced fra cture of the bilateral posterior arches of C1. This foramen transversarium of C1 was intact. There was no retropulsion, only mild prevertebral soft tissue swelling at C1 and C2. The patient was place d on a [place] J collar and she saw Neurosurgery as outpatient on 11/14/18. The recommendation at this time was to continue conservative management with the C collar and it will take 10 to 14 weeks for t he fracture to heal. Plan was to have followup x-ray done to assure stability. The patient is not a n MRI candidate as she has a pacemaker. The patient states that she was in her usual state of health last night and she had gotten up from he r bed, was able to walk to her living room where she was planning to sit down to watch some TV, but s he states that in the process of turning around with her walker to sit down, she miscalculated and fe ll to the floor. Immediately, she complained of right-sided hip pain and CT of the pelvis done in e emergency room revealed a right pubic ramus fracture as well as of the anterior acetabulum, the ricco son why the hospitalist service was contacted for admission. At the time of my evaluation. the patient states that her pain was controlled, but she had just recei liz fentanyl. She denies chest pain, palpitations, dizziness, lightheadedness, shortness of breath, fever, cough, urinary or bowel complaints. PAST MEDICAL HISTORY: 1. Hypertension. 2. Hyperlipidemia. 3. Rheumatoid arthritis. 4. Type 2 diabetes. 5. CVA in 2013. 6. SVT. 7. Atrial flutter. 8. Left bundle-branch block. 9. Coronary artery disease, status post CABG. 10. Restless leg syndrome. 11. Systolic CHF, ejection fraction of 40% to 45%. 12. Status post bilateral endarterectomy. 13. Mild dementia. PAST SURGICAL HISTORY: 1. Status post right shoulder replacement. 2. Status post CABG. 3. Status post pacemaker placement. 4. Status post bilateral knee replacements. MEDICATION LIST: 1. Amiodarone 200 mg p.o. daily. 2. Cholecalciferol 5000 units p.o. daily. 3. Cyanocobalamin 1000 mcg p.o. daily. 4. Prolia 60 mg subcutaneously every 6 months. 5. Folic acid 1 mg p.o. daily. 6. Losartan 50 mg p.o. daily. 7. Metoprolol tartrate 50 mg p.o. b.i.d. 8. Pantoprazole 40 mg p.o. daily. 9. Ropinirole 2 mg p.o. at bedtime. 10. Ambien 5 mg p.o. at bedtime as needed for insomnia. ALLERGIES: The patient had reactions to HYDROXYZINE, IODINATED CONTRAST MEDIA, OXYCODONE, and AUGMEN TIN. FAMILY HISTORY: Mother had a history of coronary artery disease as well as brother. Father had a hi story of COPD and prostate CA. SOCIAL HISTORY: The patient has no history of tobacco, alcohol, or drug use. Surrogate decision-make r is her daughter, Grecia Kahn, phone number is . REVIEW OF SYSTEMS: A 14-point review of systems was performed, and all the pertinent negative and po sitive findings are in the HPI. PHYSICAL EXAMINATION GENERAL: The patient is a pleasant elderly lady, lying in the ED stretcher, in no acute distress. VITAL SIGNS: Temperature 98.7, heart rate is 67, respiratory rate is 18, oxygen saturation 100% on r oom air, blood pressure is 142/104. HEENT: Pupils are equal. Moist mucous membranes. CHEST: Breath sounds present bilaterally with no added sounds. CVS: Normal S1 and S2. Regular rate and rhythm. ABDOMEN: Soft. Bowel sounds are present. EXTREMITIES: There is bilateral lower extremity pitting edema that the patient states is unchanged f rom her baseline. NEUROLOGIC: She is alert and oriented x3. Able to move all 4 extremities. DIAGNOSTIC STUDIES/LAB DATA: The patient had a CBC that showed a WBC of 5.7, hemoglobin of 9.8, hem atocrit of 30, platelets of 257 with 58% neutrophils. INR is 1.1. Chemistry showed a sodium of 135, potassium of 4, chloride of 99, bicarb of 32, BUN of 20, creatinine of 1.13, glucose of 119, calcium of 11. Total bilirubin is 0.8, AST 27, ALT 24, alk phos 105. Urinalysis is negative. Femur x-ray showed osteopenia with no femoral fracture. The right superior pubic ramus fracture is b mikayla characterized on CT. Hip and pelvis x-ray showed the same. Chest x-ray showed postsurgical changes. No evidence for acut e findings. CT of the cervical spine showed nondisplaced fractures of the lateral aspect of the post erior arch of C1, which is unchanged from 11/01/18. Multilevel degenerative changes with varying deg danielle of spinal and neural foraminal stenosis, which is similar to the prior study. No acute interval fracture is identified. CT of the pelvis showed nondisplaced fracture through the lateral aspect of the right superior pubic ramus and anterior acetabulum. Subcutaneous infiltration lateral to the right hip. Sigmoid divertic ulosis without diverticulitis. Otherwise negative CT pelvis. EKG done 11/20/18 at 6:51 a.m. showed sinus rhythm at 72 beats per minute with a left bundle-branch b lock and this is unchanged from her prior EKG from 09/08/18. ASSESSMENT AND PLAN: Ms. Kahn is an 83-year-old female with past medical history of hypertension; hyperlipidemia; rheumatoid arthritis; type 2 diabetes; cerebrovascular accident; supraventricular ta chycardia; atrial flutter; left bundle- branch block; coronary artery disease, status post CABG; rest less leg syndrome; systolic congestive heart failure, ejection fraction of 40% to 45%; carotid stenos is, status post bilateral endarterectomy; C1 fracture; who presented to the emergency room after anot her mechanical fall, found to have a right pelvic ramus and acetabular fracture. 1. Right pelvic ramus/acetabular fracture. Orthopedic consult was requested with Dr. Galicia. He recommends weightbearing as tolerated and PT evaluation. We will continue pain management with morph ine, hydrocodone, and acetaminophen as tolerated. The patient will likely require placement again. 2. Atrial fibrillation. The patient is in sinus rhythm at this time. We will continue amiodarone. The patient has been off anticoagulation, and considering her frequent falls, this is probably for t he best. Even though she has a history of cerebrovascular accident, with frequent falls anticoagulat ion would increase her risk of bleeding to unacceptable levels. 3. Hypertension. Uncontrolled in the setting of pain, but improving. We will continue her metoprol ol and losartan. 4. Type 2 diabetes. The patient is on no medication at this time. I will liberalize her diet and m onitor her fingersticks. If her glucose goes above 200, we will start lispro sliding scale. 5. Hypercalcemia. It has been present on and off since 2017. We will check intact PTH and vitamin D level. In the meantime, we will stop her cholecalciferol and depending on the results we may need Endocrinology evaluation. She will receive IV dehydration and we will monitor her calcium level. We will also check serum and urine protein electrophoresis. 6. Systolic congestive heart failure. The patient has bilateral lower extremity edema that she stat es is unchanged from her usual and there is no complaint of shortness of breath. At this time, she a ppears to be compensated and she is not on diabetics. We will continue to monitor and diurese as nee ded. 7. DVT prophylaxis. The patient has a score of 3 on the DVT Prophylaxis Risk Assessment Guide and s he will be started on subcutaneous heparin. 8. Code status is full. TIME SPENT: Approximately 60 minutes were spent with the patient interview, medical records review, and physical examination to complete this admission. More than half of this time was spent face-to-f claritza with the patient and coordination of care. [id number]/[facility] #: [id number]
--- NOTE | 2018-11-20 18:03 | CONS ---
CONSULTATION REPORT: DATE OF CONSULT: 11/20/18 ATTENDING ORTHOPEDIC PROVIDER: Dr. Jesu Galicia. CHIEF COMPLAINT: Right hip pain. HISTORY OF PRESENT ILLNESS: The patient is an 83-year-old female. She presents to the emergency room today after a fall at home. Around 3 a.m. last night, the patient was moving from her walker into a chair which slipped out from under her and she fell to the ground on her right side. She was immediately unable to bear weight on the right side and had pain in the right hip which was severe in nature, worse with any movement and better with rest. She reports no other pain. She did not lose consciousness. Associated with the fall, she had no chest pain, shortness of breath, or dizziness. She does have a C-collar in place due to fall previously, but she is unsure when. She states she falls roughly 2 to 3 times per week despite her home being well equipped with railings and grab bars. She lives at home with her daughter. At baseline , she uses a walker. PAST MEDICAL HISTORY: Type 2 diabetes, angina, coronary artery disease, hypercholesterolemia, hypertension, valvular heart disease, GERD. PAST SURGICAL HISTORY: Cholecystectomy, bilateral total knee replacements, bilateral carotid endarterectomy, ORIF of left humerus, with no past medical history of adverse reactions from anesthesia. ALLERGIES: HYDROXYZINE, IODINATED CONTRAST MEDIA, OXYCODONE, AMOXICILLIN, AUGMENTIN. FAMILY HISTORY: Positive for cardiac disease. SOCIAL HISTORY: Lives at home with her daughter. She uses a walker at baseline. REVIEW OF SYSTEMS: General: No fever, chills, or recent illness. HEENT: No head trauma. No headache. Cardiac: No chest pain. Respiratory: No shortness of breath. GI: No nausea, diarrhea, or abdominal pain. : No dysuria. Musculoskeletal: Positive for right hip pain. Positive for known cervical fracture. Neuro: Denies any numbness or tingling of the extremities. PHYSICAL EXAM: Vital Signs: Temperature 97.8, pulse rate 68, respiratory rate 16, oxygen saturation 98%, and blood pressure 140/55. General: Well appearing , in no acute distress. HEENT: Normocephalic, atraumatic. Extraocular movements intact. Neck: She has C-collar present from previous fall. Cardiac: S1, S2. Pulm: Normal rate and effort of breathing. Clear to auscultation bilaterally. Abdomen: Nondistended. Musculoskeletal: Bilateral upper extremities: Skin envelope intact. Nontender to palpation. Able to flex and extend at digits, wrists, elbows, and shoulders without pain. Bilateral lower extremities: Skin envelope intact. Nontender to palpation aside from mild tenderness in the right groin. Able to flex and extend at MTPs, ankles, knees, and hips without any severe pain, reports only spasm-like pain into the anterior thigh with right hip flexion. BL hips negative log roll bilaterally and negative pain for heel strike bilaterally. Vascular: DP 2+ bilaterally. Neuro: Sensation intact to light touch bilateral lower extremities. Psych: Appropriate mood and affect. DIAGNOSTIC STUDIES: Pelvis CT: Nondisplaced fracture through the lateral aspect of the right superior pubic ramus and anterior acetabulum. PLAN: The patient can be weightbearing as tolerated with a walker. She should have repeat x-rays standing pelvis after she has been ambulating. If she has severe pain with any ambulation, please contact Orthopedics for further evaluation. We will follow her loosely while she is in- house. Patient was seen and examined with Dr. Jesu Galicia today, who agrees with this assessment and plan. FATEMEH MILLER [id number]/[facility] #: [id number] JONES
[2018-11-20] MEDS: rOPINIRole TAB* 1 MG PO SCH (21:12)
[2018-11-21] MEDS: Heparin VIAL(*) 5000 UNITS/ML VIAL (FIVE THOUSAND) SUBCUT SCH ×3 (05:53→21:11)
[2018-11-21 06:26] LABS: ABS Eosinophils 0.1 10^3/ul (0-0.6); ABS Lymphocytes 1.9 10^3/ul (1.0-4.8); ABS Monocytes 0.4 10^3/ul (0-0.8); ABS Neutrophils 2.8 10^3/ul (1.5-7.7); Eosinophil % 2.2 %; Hematocrit 25 % (35-47); Hemoglobin 8.2 g/dL (12.0-16.0); Lymphocyte % 36.5 %; Mean Corpuscular HGB Conc 32 g/dL (31-36); Mean Corpuscular Hemoglobin 31 pg (27-31); Mean Corpuscular Volume 95 fL (80-97); Mean Platelet Volume 8.9 fL (7.4-10.4); Platelet Count 213 10^3/uL (150-450); Red Blood Count 2.67 10^6 /uL (3.70-4.87); Red Cell Distribution Width 15 % (10-15); White Blood Count 5.2 10^3/uL (3.5-10.8)
[2018-11-21 06:45] LABS: BUN/Creatinine Ratio 16.8 (8-20); Calcium 10.2 mg/dL (8.6-10.3); EGFR African American 59.6 (>60); EGFR Non-African American 49.2 (>60); Potassium 4.2 mmol/L (3.5-5.0)
[2018-11-21] MEDS ORDERED: NS 0.9% 1000 ML** 1,000 ML IV SCH (09:33)
[2018-11-21 09:52] LABS: Phosphorus 3.2 mg/dL (2.5-5.0)
[2018-11-21] MEDS: Cyanocobalamin TAB* 500 MCG PO SCH ×2 (10:22→10:24)
[2018-11-21] MEDS: Amiodarone TAB* 200 MG PO SCH (10:25)
[2018-11-21] MEDS: Folic Acid TAB* 1 MG PO SCH (10:25)
[2018-11-21] MEDS: Pantoprazole TAB * 40 MG TAB PO SCH (10:25)
[2018-11-21] MEDS: Losartan TAB* 25 MG PO SCH (10:25)
[2018-11-21] MEDS: Metoprolol Tartrate TAB* 50 mg PO SCH ×2 (10:26→21:11)
--- NOTE | 2018-11-21 14:44 | PN ---
Subjective Date of Service: 11/21/18 Interval History: Patient has mild pain in her hip. Patient has no more pain in her neck. Patient denies any new numbness or tingling in hands/feet or lancinating pain down extremities. Patient denies F/C, N/V, CP, SOB, dizziness, LOC, or other pain. Discussed patient's falls with daughter and she is very concerned about their prevalence without clear cause. Family History: Unchanged from Admission Social History: Unchanged from Admission Past Medical History: Unchanged from Admission Objective Active Medications: Acetaminophen (Tylenol Tab*) 650 mg PO Q6H PRN PRN Reason: MILD PAIN or TEMP > 100.4 Hydrocodone Bitart/Acetaminophen ([place] 5-325 Tab*) 1 tab PO Q4H PRN PRN Reason: PAIN - MODERATE Last Admin: 11/20/18 22:47 Dose: 1 tab Amiodarone HCl (Cordarone Tab*) 200 mg PO DAILY [facility] Last Admin: 11/21/18 10:25 Dose: 200 mg Cyanocobalamin (Vitamin B12 Tab*) 1,000 mcg PO DAILY [facility] Last Admin: 11/21/18 10:24 Dose: 1,000 mcg Folic Acid (Folvite Tab*) 1 mg PO QAM [facility] Last Admin: 11/21/18 10:25 Dose: 1 mg Heparin Sodium (Porcine) (Heparin Vial(*)) 5,000 units SUBCUT Q8HR [facility] Last Admin: 11/21/18 14:10 Dose: 5,000 units Sodium Chloride (Ns 0.9% 1000 Ml) 1,000 mls @ 50 mls/hr IV PER RATE [facility] Last Admin: 11/21/18 10:30 Dose: 50 mls/hr Losartan Potassium (Cozaar Tab*) 50 mg PO DAILY [facility] Last Admin: 11/21/18 10:25 Dose: 50 mg Metoprolol Tartrate (Lopressor Tab*) 50 mg PO BID [facility] Last Admin: 11/21/18 10:26 Dose: 50 mg Morphine Sulfate (Morphine Inj (Syringe))*) 1 mg IV Q2H PRN PRN Reason: SEVERE PAIN Pantoprazole Sodium (Protonix Tab*) 40 mg PO DAILY [facility] Last Admin: 11/21/18 10:25 Dose: 40 mg Ropinirole HCl (Requip Tab*) 2 mg PO BEDTIME [facility] Last Admin: 11/20/18 21:12 Dose: 2 mg Zolpidem Tartrate (Ambien Tab*) 5 mg PO BEDTIME PRN PRN Reason: INSOMNIA Vital Signs - 8 hr 11/21/18 11/21/18 11/21/18 07:45 08:00 11:15 Temperature 99 F 98.6 F Pulse Rate 59 60 Respiratory 18 22 23 Rate Blood Pressure 151/52 135/46 (mmHg) O2 Sat by Pulse 92 90 Oximetry Oxygen Devices in Use Now: None Appearance: Female in [place] J collar who appears stated age and is sitting in the bed in [facility]. Eyes: No Scleral Icterus, PERRLA Ears/Nose/Mouth/Throat: NL Teeth, Lips, Gums, Clear Oropharnyx, Mucous Membranes Moist Neck: NL Appearance and Movements; NL JVP, Trachea Midline Respiratory: Symmetrical Chest Expansion and Respiratory Effort, Clear to Auscultation Cardiovascular: NL Sounds; No Murmurs; No JVD, RRR, No Edema Abdominal: NL Sounds; No Tenderness; No Distention, No Hepatosplenomegaly Lymphatic: No Cervical Adenopathy Extremities: No Edema, No Clubbing, Cyanosis Skin: No Rash or Ulcers, No Nodules or Sclerosis Neurological: Alert and Oriented x 3, NL Sensation, NL Muscle Strength and Tone , - - CN II-XII intact. Result Diagrams: 11/21/18 05:49 11/21/18 05:49 Microbiology and Other Data: Microbiology 11/20/18 08:40 Urine Culture - Final Urine No Growth (<1,000 CFU/mL) Assess/Plan/Problems-Billing Assessment: Patient is an 83yo female with a PMH for CVA, Pacer for SSS, CHF, HTN, CABG, here with recurrent falls and Acetabular Fracture. Patient will need LILIYA and PT. - Patient Problems (1) Recurrent falls Current Visit: No Status: Acute Code(s): R29.6 - REPEATED FALLS SNOMED Code(s): 986268133 Comment: - 7 in past 2 weeks per daughter. - Most recent causing acetabular fracture. Conservative management per Orthopedics. - PT and potential subacute rehab - Unclear cause, likely primarily deconditioning with contributions from neuropathy, hyponatremia and possibly hypercalcemia. - Continue Prozac. (2) Acetabulum fracture Current Visit: Yes Status: Acute Code(s): S32.409A - UNSP FRACTURE OF UNSP ACETABULUM, INIT FOR CLOS FX SNOMED Code(s): 90899267 Comment: - Right superior pubic ramus and acetabulum fracture due to mechanical fall - Will need repeat films after PT to document stability. - Appreciate Ortho Input. - Pain control (3) Cervical spine fracture Current Visit: Yes Status: Acute Code(s): S12.9XXA - FRACTURE OF NECK, UNSPECIFIED, INITIAL ENCOUNTER SNOMED Code(s): 782424770 Comment: - Continue Conservative treatment with [place] J-Collar - Stable on CT neck - F/U outpatient Neurosurgery. (4) Hypercalcemia Current Visit: Yes Status: Acute Code(s): E83.52 - HYPERCALCEMIA SNOMED Code(s): 44732033 Comment: - Recurrent, with inappropriately normal PTH - Likely Primary Hyperparathyroidism - Endocrinology consult pending - Improved with fluids - On Prolia outpatient - Also hypervitaminosis D, likely not underlying cause, but will hold vitamin D supplementation at this time and likely decrease overall dosing. - Will likely need sevelamer. - SPEP recently normal (5) Atrial fibrillation Current Visit: No Status: Acute Code(s): I48.91 - UNSPECIFIED ATRIAL FIBRILLATION SNOMED Code(s): 86588404 Comment: - With Pacer and on Amiodarone - Not anticoagulated - Rhythm controlled. (6) CVA (cerebral vascular accident) Current Visit: No Status: Chronic Code(s): I63.9 - CEREBRAL INFARCTION, UNSPECIFIED SNOMED Code(s): 265627915 Comment: - Likely Embolic from Afib/Flutter - No on anticoagulation at this time due to recurrent falls. - No residual deficits. (7) Elevated cholesterol Current Visit: No Status: Chronic Code(s): E78.0 - PURE HYPERCHOLESTEROLEMIA * DO NOT USE * SNOMED Code(s): 91483701 Comment: - Atorvastatin 40 mg HS (8) HTN (hypertension) Current Visit: No Status: Chronic Code(s): I10 - ESSENTIAL (PRIMARY) HYPERTENSION SNOMED Code(s): 13276600 Comment: - Continue Metoprolol and Losartan - Normotensive. (9) Type 2 diabetes mellitus Current Visit: No Status: Chronic Comment: - A1c most recently 6.4, this is acceptable given her age and co-morbidity and fall risk. - Continue with diet control. (10) CHF (congestive heart failure) Current Visit: Yes Status: Acute Code(s): I50.9 - HEART FAILURE, UNSPECIFIED SNOMED Code(s): 86437291 Comment: - Appears Euvolemic, use fluids judiciously - With Preserved Ejection fraction. (11) Anemia Current Visit: Yes Status: Acute Code(s): D64.9 - ANEMIA, UNSPECIFIED SNOMED Code(s): 702385429 Comment: - Unlear cause - Repeat iron studies, previously consistent with AOCD - Likely AOCD from RA, possibly with contribution from previous Methotrexate prescription - May benefit from outpatient hematology evaluation. - Continue Folate and B12 Supplementation (12) Rheumatoid arthritis Current Visit: No Status: Acute Code(s): M06.9 - RHEUMATOID ARTHRITIS, UNSPECIFIED SNOMED Code(s): 20856018 Comment: - MTX on hold (13) DVT prophylaxis Current Visit: No Status: Acute Code(s): Z29.9 - ENCOUNTER FOR PROPHYLACTIC MEASURES, UNSPECIFIED SNOMED Code(s): 464253430 Comment: - HSQ - SCD's (14) Full code status Current Visit: No Status: Acute Code(s): Z78.9 - OTHER SPECIFIED HEALTH STATUS SNOMED Code(s): 797926924 Status and Disposition: Inpatient for PT and placement.
[2018-11-21 15:16] LABS: % Iron Saturation 7 % (15-55); Iron 26 ug/dL (50-212); Total Iron Binding Capacity 353 mcg/dL (250-450); Transferrin 252 mg/dL (203-362)
[2018-11-21 15:34] LABS: Ferritin 21.9 ng/mL (11-307)
--- NOTE | 2018-11-21 18:18 | CONSULT ---
Consult Consult: [facility] Inpatient Consult Note Date of Consult: 11/21/18 Reason for Consult: hypercalcemia Reason for Admission: acetabular fracture, gait instability ASSESSMENT: 83 yo F with recent acetabular and C-spine fractures in setting of low-trauma falls, now evaluated for hypercalcemia with non-suppressed PTH. She has clinical and radiographic evidence of severe osteoporosis despite antiresorptive therapy, with significant decrease in BMD [id number]. I recommend discontinuation of Prolia and initiation of IV bisphosphonate therapy, which should improve BMD and prevent hypercalcemia. PLAN: - give IV zoledronic acid 5mg IV x1 this admission - check calcium daily while inpatient - check thyroid ultrasound for parathyroid adenoma - reduce vitamin D (cholecalciferol) to 1000 IU/day SUBJECTIVE: History of Present Illness: 83 yo F with history of osteoporosis and rheumatoid arthritis, among other chronic medical conditions, now admitted for acetabular and L ramus fractures after a fall. See H&P for details of the hospital admission. Briefly, she has 2 recent admissions for C-spine fracture and AF with slow VR this summer and has had poor functional status for several months. She was diagnosed with osteoporosis several years ago and started on Prolia in 2018, with last dose in early 2019. Unfortunately, she has continued to experience fragility fractures on this therapy and has had several episodes of mild, asymptomatic hypercalcemia during this time. She had a PTH measured for the first time this admission, which was not suppressed in setting of Ca>11. This has improved with IV hydration and is now 9.8. Past Medical History: 1. Hypertension. 2. Hyperlipidemia. 3. Rheumatoid arthritis. 4. Type 2 diabetes. 5. CVA in 2013. 6. SVT. 7. Atrial flutter. 8. Left bundle-branch block. 9. Coronary artery disease, status post CABG. 10. Restless leg syndrome. 11. Systolic CHF, ejection fraction of 40% to 45%. 12. Status post bilateral endarterectomy. 13. Mild dementia. 14. Status post right shoulder replacement. 15. Status post CABG. 16. Status post pacemaker placement. 17. Status post bilateral knee replacements. Medications Prior to Admission: Zolpidem TAB* [Ambien*] 5 mg PO BEDTIME PRN 03/14/14 [History Confirmed 11/20/18 ] Pantoprazole TAB * [Protonix TAB*] 40 mg PO DAILY 06/20/17 [History Confirmed ] rOPINIRole TAB* [Requip TAB*] 2 mg PO BEDTIME 06/20/17 [History Confirmed ] Cholecalciferol TAB* [Vitamin D TAB*] 5,000 units PO DAILY 03/26/18 [History Confirmed 11/20/18] Cyanocobalamin TAB* [Vitamin B12 TAB*] 1,000 mcg PO DAILY 03/26/18 [History Confirmed 11/20/18] Folic Acid TAB* [Folvite TAB*] 1 mg PO QAM 03/26/18 [History Confirmed 11/20/18] Losartan TAB* [Cozaar TAB*] 50 mg PO DAILY 03/26/18 [History Confirmed 11/20/18] Amiodarone TAB* [Cordarone Tab*] 200 mg PO DAILY 06/29/18 [History Confirmed 03/10] Denosumab [Prolia] 60 mg SUBCUT Q6M 06/29/18 [History Confirmed 11/20/18] Metoprolol Tartrate TAB* [Lopressor TAB*] 50 mg PO BID 11/01/18 [History Confirmed 11/20/18] Inpatient Medications: Acetaminophen (Tylenol Tab*) 650 mg PO Q6H PRN PRN Reason: MILD PAIN or TEMP > 100.4 Hydrocodone Bitart/Acetaminophen ([place] 5-325 Tab*) 1 tab PO Q4H PRN PRN Reason: PAIN - MODERATE Last Admin: 11/20/18 22:47 Dose: 1 tab Amiodarone HCl (Cordarone Tab*) 200 mg PO DAILY [facility] Last Admin: 11/21/18 10:25 Dose: 200 mg Cyanocobalamin (Vitamin B12 Tab*) 1,000 mcg PO DAILY [facility] Last Admin: 11/21/18 10:24 Dose: 1,000 mcg Folic Acid (Folvite Tab*) 1 mg PO QAM [facility] Last Admin: 11/21/18 10:25 Dose: 1 mg Heparin Sodium (Porcine) (Heparin Vial(*)) 5,000 units SUBCUT Q8HR [facility] Last Admin: 11/21/18 14:10 Dose: 5,000 units Sodium Chloride (Ns 0.9% 1000 Ml) 1,000 mls @ 50 mls/hr IV PER RATE [facility] Last Admin: 11/21/18 10:30 Dose: 50 mls/hr Losartan Potassium (Cozaar Tab*) 50 mg PO DAILY [facility] Last Admin: 11/21/18 10:25 Dose: 50 mg Metoprolol Tartrate (Lopressor Tab*) 50 mg PO BID [facility] Last Admin: 11/21/18 10:26 Dose: 50 mg Morphine Sulfate (Morphine Inj (Syringe))*) 1 mg IV Q2H PRN PRN Reason: SEVERE PAIN Pantoprazole Sodium (Protonix Tab*) 40 mg PO DAILY [facility] Last Admin: 11/21/18 10:25 Dose: 40 mg Ropinirole HCl (Requip Tab*) 2 mg PO BEDTIME [facility] Last Admin: 11/20/18 21:12 Dose: 2 mg Zolpidem Tartrate (Ambien Tab*) 5 mg PO BEDTIME PRN PRN Reason: INSOMNIA Allergies/Intolerances: HYDROXYZINE, IODINATED CONTRAST MEDIA, OXYCODONE, AUGMENTIN Social History: No history of tobacco, alcohol, or drug use. Family History: Mother had a history of coronary artery disease as well as brother. Father had a history of COPD and prostate CA. Review of Systems: Limited by dementia. 10 system review is otherwise negative, per patient. OBJECTIVE: Temp Pulse Resp BP Pulse Ox 97.7 F 59 19 144/53 99 11/21/18 15:15 11/21/18 15:15 11/21/18 15:15 11/21/18 15:15 11/21/18 15:15 General: alert, pleasant, oriented, no distress ENT: neck supple, no thyromegaly, no bruit is heard Chest: CTAB, no wheezing or crackles CV: RRR, no murmur Abdomen: soft, non-tender Extremities: no edema, distal pulses intact Skin: warm, dry, no rash Neuro: grossly intact motor/sensory in extremities Psych: restricted affect, pleasant Labs: WBC 5.2 10^3/uL (3.5-10.8) 11/21/18 05:49 RBC 2.67 10^6 /uL (3.70-4.87) L 11/21/18 05:49 Hgb 8.2 g/dL (12.0-16.0) L 11/21/18 05:49 Hct 25 % (35-47) L 11/21/18 05:49 MCV 95 fL (80-97) 11/21/18 05:49 MCH 31 pg (27-31) 11/21/18 05:49 MCHC 32 g/dL (31-36) 11/21/18 05:49 RDW 15 % (10-15) 11/21/18 05:49 Plt Count 213 10^3/uL (150-450) 11/21/18 05:49 MPV 8.9 fL (7.4-10.4) 11/21/18 05:49 Neut % (Auto) 53.3 % 11/21/18 05:49 Lymph % (Auto) 36.5 % 11/21/18 05:49 [place] % (Auto) 7.4 % 11/21/18 05:49 Eos % (Auto) 2.2 % 11/21/18 05:49 Baso % (Auto) 0.6 % 11/21/18 05:49 Absolute Neuts (auto) 2.8 10^3/ul (1.5-7.7) 11/21/18 05:49 Absolute Lymphs (auto) 1.9 10^3/ul (1.0-4.8) 11/21/18 05:49 Absolute Monos (auto) 0.4 10^3/ul (0-0.8) 11/21/18 05:49 Absolute Eos (auto) 0.1 10^3/ul (0-0.6) 11/21/18 05:49 Absolute Basos (auto) 0.0 10^3/ul (0-0.2) 11/21/18 05:49 Absolute Nucleated RBC 0.0 10^3/ul 11/21/18 05:49 Nucleated RBC % 0.0 11/21/18 05:49 INR (Anticoag Therapy) 1.14 (0.82-1.09) H 11/20/18 04:44 Sodium 134 mmol/L (135-145) L 11/21/18 05:49 Potassium 4.2 mmol/L (3.5-5.0) 11/21/18 05:49 Chloride 101 mmol/L (101-111) 11/21/18 05:49 Carbon Dioxide 30 mmol/L (22-32) 11/21/18 05:49 Anion Gap 3 mmol/L (2-11) 11/21/18 05:49 BUN 18 mg/dL (6-24) 11/21/18 05:49 Creatinine 1.07 mg/dL (0.51-0.95) H 11/21/18 05:49 Est GFR ( Amer) 59.6 (>60) 11/21/18 05:49 Est GFR (Non-Af Amer) 49.2 (>60) 11/21/18 05:49 BUN/Creatinine Ratio 16.8 (8-20) 11/21/18 05:49 Glucose 82 mg/dL (70-100) 11/21/18 05:49 POC Glucose (mg/dL) 149 mg/dL (70-100) H 11/21/18 16:59 Calcium 10.2 mg/dL (8.6-10.3) 11/21/18 05:49 Phosphorus 3.2 mg/dL (2.5-5.0) 11/21/18 05:49 Iron 26 ug/dL (50-212) L 11/21/18 05:43 TIBC 353 mcg/dL (250-450) 11/21/18 05:43 % Saturation 7 % (15-55) L 11/21/18 05:43 Unsat Iron Binding < 338 ug/dL 11/21/18 05:43 Transferrin 252 mg/dL (203-362) 11/21/18 05:43 Ferritin 21.9 ng/mL (11-307) 11/21/18 05:43 Total Bilirubin 0.80 mg/dL (0.2-1.0) 11/20/18 04:44 AST 27 U/L (13-39) 11/20/18 04:44 ALT 24 U/L (7-52) 11/20/18 04:44 Alkaline Phosphatase 105 U/L (34-104) H 11/20/18 04:44 Total Protein 7.2 g/dL (6.4-8.9) 11/20/18 04:44 Albumin 3.7 g/dL (3.2-5.2) 11/20/18 04:44 Globulin 3.5 g/dL (2-4) 11/20/18 04:44 Albumin/Globulin Ratio 1.1 (1-3) 11/20/18 04:44 25-OH Vitamin D Total 64.1 ng/mL (20-50) H 11/20/18 08:41 TSH 0.87 mcIU/mL (0.34-5.60) 11/20/18 08:41 PTH Intact 52.7 pg/mL (12-88) 11/20/18 08:41 Calcium (PTH Intact) 10.6 mg/dL (8.6-10.3) H 11/20/18 08:41 Urine Color Straw 11/20/18 08:40 Urine Appearance Clear 11/20/18 08:40 Urine pH 8.0 (5-9) 11/20/18 08:40 Ur Specific [place] 1.009 (1.010-1.030) L 11/20/18 08:40 Urine Protein Negative (Negative) 11/20/18 08:40 Urine Ketones Negative (Negative) 11/20/18 08:40 Urine Blood Negative (Negative) 11/20/18 08:40 Urine Nitrate Negative (Negative) 11/20/18 08:40 Urine Bilirubin Negative (Negative) 11/20/18 08:40 Urine Urobilinogen Negative (Negative) 11/20/18 08:40 Ur Leukocyte Esterase Negative (Negative) 11/20/18 08:40 Urine WBC (Auto) Trace(0-5/hpf) (Absent) 11/20/18 08:40 Urine RBC (Auto) Trace(0-2/hpf) (Absent) 11/20/18 08:40 Urine Bacteria Absent (Absent) 11/20/18 08:40 Urine Glucose Negative (Negative) 11/20/18 08:40
[2018-11-21] MEDS: rOPINIRole TAB* 1 MG PO SCH (21:11)
[2018-11-22] MEDS: Heparin VIAL(*) 5000 UNITS/ML VIAL (FIVE THOUSAND) SUBCUT SCH ×3 (05:01→22:05)
[2018-11-22] MEDS ORDERED: Ferrous Sulfate TAB* 325 MG PO SCH (09:00)
[2018-11-22] MEDS: Amiodarone TAB* 200 MG PO SCH (09:54)
[2018-11-22] MEDS: Pantoprazole TAB * 40 MG TAB PO SCH (09:54)
[2018-11-22] MEDS: Losartan TAB* 25 MG PO SCH (09:54)
[2018-11-22] MEDS: Folic Acid TAB* 1 MG PO SCH (09:54)
[2018-11-22] MEDS: Metoprolol Tartrate TAB* 50 mg PO SCH ×2 (09:54→22:06)
[2018-11-22] MEDS: Cyanocobalamin TAB* 500 MCG PO SCH (10:02)
[2018-11-22] MEDS ORDERED: [UNRECOGNIZED DRUG - OTHER] IVPB ONE (12:00)
[2018-11-22] MEDS ORDERED: MANNITOL IVPB ONE (12:00)
[2018-11-22 12:28] LABS: ABS Eosinophils 0.1 10^3/ul (0-0.6); ABS Lymphocytes 1.2 10^3/ul (1.0-4.8); ABS Monocytes 0.6 10^3/ul (0-0.8); ABS Neutrophils 4.4 10^3/ul (1.5-7.7); Hematocrit 27 % (35-47); Hemoglobin 8.8 g/dL (12.0-16.0); Lymphocyte % 18.2 %; Mean Corpuscular HGB Conc 33 g/dL (31-36); Mean Corpuscular Hemoglobin 31 pg (27-31); Mean Corpuscular Volume 95 fL (80-97); Mean Platelet Volume 8.7 fL (7.4-10.4); Platelet Count 212 10^3/uL (150-450); Red Blood Count 2.81 10^6 /uL (3.70-4.87); Red Cell Distribution Width 15 % (10-15); White Blood Count 6.3 10^3/uL (3.5-10.8)
[2018-11-22 12:52] LABS: BUN/Creatinine Ratio 19.2 (8-20); C Reactive Protein 34.84 mg/L (<8.01); Calcium 9.8 mg/dL (8.6-10.3); EGFR African American 65.1 (>60); EGFR Non-African American 53.8 (>60); Magnesium 1.2 mg/dL (1.9-2.7); Potassium 4.1 mmol/L (3.5-5.0)
[2018-11-22 13:12] LABS: Albumin 3.2 g/dL (3.4-4.7); Albumin/Globulin Ratio 0.88; Gamma Globulin 1.8 g/dL (0.6-1.6); Total Protein(PEP) 6.9 g/dL (6.3 - 7.9)
[2018-11-22] MEDS ORDERED: Magnesium Sulf 4 GM/100 ML IV* 4,000 MG/100 ML BAG IVPB ONE (13:23)
--- NOTE | 2018-11-22 13:38 | PN ---
Subjective Date of Service: 11/22/18 Interval History: Patient is feeling somewhat better today. Patient has pain in her hip that occasionally radiates down into her thigh. Patient denies CP, SOB, Dizziness, F/ C, N/V, abdominal pain, diarrhea, constipation, or other pain. Family History: Unchanged from Admission Social History: Unchanged from Admission Past Medical History: Unchanged from Admission Objective Active Medications: Acetaminophen (Tylenol Tab*) 650 mg PO Q6H PRN PRN Reason: MILD PAIN or TEMP > 100.4 Hydrocodone Bitart/Acetaminophen ([place] 5-325 Tab*) 1 tab PO Q4H PRN PRN Reason: PAIN - MODERATE Last Admin: 11/20/18 22:47 Dose: 1 tab Amiodarone HCl (Cordarone Tab*) 200 mg PO DAILY [facility] Last Admin: 11/22/18 09:54 Dose: 200 mg Cholecalciferol (Vitamin D Tab*) 800 unit PO DAILY [facility] Cyanocobalamin (Vitamin B12 Tab*) 1,000 mcg PO DAILY@0900 [facility] Last Admin: 11/22/18 10:02 Dose: 1,000 mcg Ferrous Sulfate (Ferrous Sulfate Tab*) 325 mg PO EVERY OTHER DAY [facility] Last Admin: 11/22/18 09:54 Dose: 325 mg Folic Acid (Folvite Tab*) 1 mg PO QAM [facility] Last Admin: 11/22/18 09:54 Dose: 1 mg Heparin Sodium (Porcine) (Heparin Vial(*)) 5,000 units SUBCUT Q8HR [facility] Last Admin: 11/22/18 05:01 Dose: 5,000 units Magnesium Sulfate (Magnesium Sulf 4 Gm/100 Ml Iv*) 4,000 mg in 100 mls @ 33.333 mls/hr IVPB ONCE ONE Stop: 11/22/18 16:22 Losartan Potassium (Cozaar Tab*) 50 mg PO DAILY [facility] Last Admin: 11/22/18 09:54 Dose: 50 mg Metoprolol Tartrate (Lopressor Tab*) 50 mg PO BID [facility] Last Admin: 11/22/18 09:54 Dose: 50 mg Morphine Sulfate (Morphine Inj (Syringe))*) 1 mg IV Q2H PRN PRN Reason: SEVERE PAIN Pantoprazole Sodium (Protonix Tab*) 40 mg PO DAILY [facility] Last Admin: 11/22/18 09:54 Dose: 40 mg Ropinirole HCl (Requip Tab*) 2 mg PO BEDTIME [facility] Last Admin: 11/21/18 21:11 Dose: 2 mg Zolpidem Tartrate (Ambien Tab*) 5 mg PO BEDTIME PRN PRN Reason: INSOMNIA Oxygen Devices in Use Now: None Appearance: Patient is an 83yo female who appears stated age and is sitting in the bed in NAD. Eyes: No Scleral Icterus, PERRLA Ears/Nose/Mouth/Throat: NL Teeth, Lips, Gums, Clear Oropharnyx, Mucous Membranes Moist Neck: NL Appearance and Movements; NL JVP, Trachea Midline, - - [place]-J collar in Place. Respiratory: Symmetrical Chest Expansion and Respiratory Effort, Clear to Auscultation Cardiovascular: NL Sounds; No Murmurs; No JVD, RRR, - - 1+ B/L LE edema. Abdominal: NL Sounds; No Tenderness; No Distention, No Hepatosplenomegaly Lymphatic: No Cervical Adenopathy Extremities: No Clubbing, Cyanosis Skin: No Nodules or Sclerosis Neurological: Alert and Oriented x 3, NL Sensation, NL Muscle Strength and Tone , - - CN II-XII intact. Result Diagrams: 11/22/18 12:04 11/22/18 12:04 Microbiology and Other Data: Microbiology 11/20/18 08:40 Urine Culture - Final Urine No Growth (<1,000 CFU/mL) Assess/Plan/Problems-Billing Assessment: Patient is an 83yo female with a PMH for CVA, Pacer for SSS, CHF, HTN, CABG, here with recurrent falls and Acetabular Fracture. Patient will need LILIYA and PT. - Patient Problems (1) Recurrent falls Current Visit: No Status: Acute Code(s): R29.6 - REPEATED FALLS SNOMED Code(s): 040829860 Comment: - 7 in past 2 weeks per daughter. - Most recent causing acetabular fracture. Conservative management per Orthopedics. - PT and potential subacute rehab - Unclear cause, likely primarily deconditioning with contributions from neuropathy, hyponatremia and possibly hypercalcemia. - Continue Prozac. (2) Acetabulum fracture Current Visit: Yes Status: Acute Code(s): S32.409A - UNSP FRACTURE OF UNSP ACETABULUM, INIT FOR CLOS FX SNOMED Code(s): 42323951 Comment: - Right superior pubic ramus and acetabulum fracture due to mechanical fall - Repeat films show no shifting after ambulation. - Appreciate Ortho Input. - Pain control (3) Cervical spine fracture Current Visit: Yes Status: Acute Code(s): S12.9XXA - FRACTURE OF NECK, UNSPECIFIED, INITIAL ENCOUNTER SNOMED Code(s): 304475235 Comment: - Continue Conservative treatment with [place] J-Collar - Stable on CT neck - F/U outpatient Neurosurgery. (4) Hypercalcemia Current Visit: Yes Status: Acute Code(s): E83.52 - HYPERCALCEMIA SNOMED Code(s): 82477253 Comment: - Recurrent, with inappropriately normal PTH - Likely Primary Hyperparathyroidism - Endocrinology consult appreciated - Improved with fluids, stop fluids - On Prolia outpatient, Give Zomeda now. - Also hypervitaminosis D, likely not underlying cause - Start Vitamin D at 800u daily - SPEP recently normal, repeat pending - Thyroid US outpatient to assess for parathyroid adenoma. (5) Atrial fibrillation Current Visit: No Status: Acute Code(s): I48.91 - UNSPECIFIED ATRIAL FIBRILLATION SNOMED Code(s): 62498309 Comment: - With Pacer and on Amiodarone - Not anticoagulated - Rhythm controlled. (6) CVA (cerebral vascular accident) Current Visit: No Status: Chronic Code(s): I63.9 - CEREBRAL INFARCTION, UNSPECIFIED SNOMED Code(s): 990369346 Comment: - Likely Embolic from Afib/Flutter - No on anticoagulation at this time due to recurrent falls. - No residual deficits. (7) Elevated cholesterol Current Visit: No Status: Chronic Code(s): E78.0 - PURE HYPERCHOLESTEROLEMIA * DO NOT USE * SNOMED Code(s): 64731205 Comment: - Atorvastatin 40 mg HS (8) HTN (hypertension) Current Visit: No Status: Chronic Code(s): I10 - ESSENTIAL (PRIMARY) HYPERTENSION SNOMED Code(s): 65703575 Comment: - Continue Metoprolol and Losartan - Normotensive. (9) Type 2 diabetes mellitus Current Visit: No Status: Chronic Comment: - A1c most recently 6.4, this is acceptable given her age and co-morbidity and fall risk. - Continue with diet control. (10) CHF (congestive heart failure) Current Visit: Yes Status: Acute Code(s): I50.9 - HEART FAILURE, UNSPECIFIED SNOMED Code(s): 56816962 Comment: - Appears Euvolemic, use fluids judiciously - With Preserved Ejection fraction. (11) Anemia Current Visit: Yes Status: Acute Code(s): D64.9 - ANEMIA, UNSPECIFIED SNOMED Code(s): 383019427 Comment: - Unlear cause - Repeat iron studies show Iron deficiency with possible AOCD. - May benefit from outpatient hematology evaluation. - Start Iron supplementation. - Continue Folate and B12 Supplementation (12) Rheumatoid arthritis Current Visit: No Status: Acute Code(s): M06.9 - RHEUMATOID ARTHRITIS, UNSPECIFIED SNOMED Code(s): 37894465 Comment: - MTX on hold (13) DVT prophylaxis Current Visit: No Status: Acute Code(s): Z29.9 - ENCOUNTER FOR PROPHYLACTIC MEASURES, UNSPECIFIED SNOMED Code(s): 541845325 Comment: - HSQ - SCD's (14) Full code status Current Visit: No Status: Acute Code(s): Z78.9 - OTHER SPECIFIED HEALTH STATUS SNOMED Code(s): 083696589 Status and Disposition: Inpatient for PT and placement. Likely D/C to CR tomorrow.
--- NOTE | 2018-11-22 14:24 | PN ---
Progress Note - Progress Note Date of Service: 11/22/18 SOAP: Subjective: []Pt seen at bedside. She is feeling well, walking remains painful but she is able to walk to the bathroom with her walker and 1 assist today. Transition laying to sitting in bed is not painful. No complaints today Objective: []Gen: NAD, appears comfortable RLE: skin envelope intact, able to flex and extend at hip, knee, ankle without pain. No pain with log roll of hip. Calves supple and nontender Assessment: []nondisplaced R pubic rami and acetabular fracture Plan: []WBAT w assistive device PT/OT Repeat xray pelvis ordered for tomorrow Vital Signs Temp 98.1 F 11/22/18 03:15 Pulse 61 11/22/18 03:15 Resp 18 11/22/18 03:15 BP 140/50 11/22/18 03:15 Pulse Ox 94 11/22/18 03:15 Intake & Output 11/21/18 11/22/18 11/22/18 18:59 06:59 18:59 Intake Total 2527 302 240 Output Total 275 450 Balance 2252 -148 240 Intake: IV Fluids 1077 NS (0.9%) 1077 IVPB 302 NS (0.9%) 302 Oral 1450 0 240 Output: [place] 275 450 Other: # Bowel Movements 2 Estimated Stool Amount Medium Laboratory Last Values WBC 6.3 10^3/uL (3.5-10.8) 11/22/18 12:04 RBC 2.81 10^6 /uL (3.70-4.87) L 11/22/18 12:04 Hgb 8.8 g/dL (12.0-16.0) L 11/22/18 12:04 Hct 27 % (35-47) L 11/22/18 12:04 MCV 95 fL (80-97) 11/22/18 12:04 MCH 31 pg (27-31) 11/22/18 12:04 MCHC 33 g/dL (31-36) 11/22/18 12:04 RDW 15 % (10-15) 11/22/18 12:04 Plt Count 212 10^3/uL (150-450) 11/22/18 12:04 MPV 8.7 fL (7.4-10.4) 11/22/18 12:04 Neut % (Auto) 70.1 % 11/22/18 12:04 Lymph % (Auto) 18.2 % 11/22/18 12:04 [place] % (Auto) 9.0 % 11/22/18 12:04 Eos % (Auto) 2.0 % 11/22/18 12:04 Baso % (Auto) 0.7 % 11/22/18 12:04 Absolute Neuts (auto) 4.4 10^3/ul (1.5-7.7) 11/22/18 12:04 Absolute Lymphs (auto) 1.2 10^3/ul (1.0-4.8) 11/22/18 12:04 Absolute Monos (auto) 0.6 10^3/ul (0-0.8) 11/22/18 12:04 Absolute Eos (auto) 0.1 10^3/ul (0-0.6) 11/22/18 12:04 Absolute Basos (auto) 0.0 10^3/ul (0-0.2) 11/22/18 12:04 Absolute Nucleated RBC 0.0 10^3/ul 11/22/18 12:04 Nucleated RBC % 0.0 11/22/18 12:04 INR (Anticoag Therapy) 1.14 (0.82-1.09) H 11/20/18 04:44 Sodium 131 mmol/L (135-145) L 11/22/18 12:04 Potassium 4.1 mmol/L (3.5-5.0) 11/22/18 12:04 Chloride 99 mmol/L (101-111) L 11/22/18 12:04 Carbon Dioxide 30 mmol/L (22-32) 11/22/18 12:04 Anion Gap 2 mmol/L (2-11) 11/22/18 12:04 BUN 19 mg/dL (6-24) 11/22/18 12:04 Creatinine 0.99 mg/dL (0.51-0.95) H 11/22/18 12:04 Est GFR ( Amer) 65.1 (>60) 11/22/18 12:04 Est GFR (Non-Af Amer) 53.8 (>60) 11/22/18 12:04 BUN/Creatinine Ratio 19.2 (8-20) 11/22/18 12:04 Glucose 105 mg/dL (70-100) H 11/22/18 12:04 POC Glucose (mg/dL) 123 mg/dL (70-100) H 11/22/18 12:41 Calcium 9.8 mg/dL (8.6-10.3) 11/22/18 12:04 Phosphorus 3.2 mg/dL (2.5-5.0) 11/21/18 05:49 Magnesium 1.2 mg/dL (1.9-2.7) L 11/22/18 12:04 Iron 26 ug/dL (50-212) L 11/21/18 05:43 TIBC 353 mcg/dL (250-450) 11/21/18 05:43 % Saturation 7 % (15-55) L 11/21/18 05:43 Unsat Iron Binding < 338 ug/dL 11/21/18 05:43 Transferrin 252 mg/dL (203-362) 11/21/18 05:43 Ferritin 21.9 ng/mL (11-307) 11/21/18 05:43 Total Bilirubin 0.80 mg/dL (0.2-1.0) 11/20/18 04:44 AST 27 U/L (13-39) 11/20/18 04:44 ALT 24 U/L (7-52) 11/20/18 04:44 Alkaline Phosphatase 105 U/L (34-104) H 11/20/18 04:44 C-Reactive Protein 34.84 mg/L (<8.01) H 11/22/18 12:04 Total Protein 7.2 g/dL (6.4-8.9) 11/20/18 04:44 Total Protein (PEP) 6.9 g/dL (6.3 - 7.9) 11/20/18 08:41 Albumin 3.7 g/dL (3.2-5.2) 11/20/18 04:44 Albumin (PEP) 3.2 g/dL (3.4-4.7) L 11/20/18 08:41 Globulin 3.5 g/dL (2-4) 11/20/18 04:44 Albumin/Globulin Ratio 1.1 (1-3) 11/20/18 04:44 Albumin/Globulin (PEP) 0.88 11/20/18 08:41 Rnqhr-7-Hkqmsxaqx 0.3 g/dL (0.1-0.3) 11/20/18 08:41 Klzlj-7-Gfruyqcob 0.7 g/dL (0.6-1.0) 11/20/18 08:41 Drsk-1-Loshvhvs 0.9 g/dL (0.7-1.2) 11/20/18 08:41 Gamma Globulins 1.8 g/dL (0.6-1.6) H 11/20/18 08:41 PEP Impression See comment 11/20/18 08:41 25-OH Vitamin D Total 64.1 ng/mL (20-50) H 11/20/18 08:41 TSH 0.87 mcIU/mL (0.34-5.60) 11/20/18 08:41 PTH Intact 52.7 pg/mL (12-88) 11/20/18 08:41 Calcium (PTH Intact) 10.6 mg/dL (8.6-10.3) H 11/20/18 08:41 Urine Color Straw 11/20/18 08:40 Urine Appearance Clear 11/20/18 08:40 Urine pH 8.0 (5-9) 11/20/18 08:40 Ur Specific [place] 1.009 (1.010-1.030) L 11/20/18 08:40 Urine Protein Negative (Negative) 11/20/18 08:40 Urine Ketones Negative (Negative) 11/20/18 08:40 Urine Blood Negative (Negative) 11/20/18 08:40 Urine Nitrate Negative (Negative) 11/20/18 08:40 Urine Bilirubin Negative (Negative) 11/20/18 08:40 Urine Urobilinogen Negative (Negative) 11/20/18 08:40 Ur Leukocyte Esterase Negative (Negative) 11/20/18 08:40 Urine WBC (Auto) Trace(0-5/hpf) (Absent) 11/20/18 08:40 Urine RBC (Auto) Trace(0-2/hpf) (Absent) 11/20/18 08:40 Urine Bacteria Absent (Absent) 11/20/18 08:40 Urine Glucose Negative (Negative) 11/20/18 08:40
[2018-11-22] MEDS: rOPINIRole TAB* 1 MG PO SCH (22:07)
[2018-11-23] MEDS: Heparin VIAL(*) 5000 UNITS/ML VIAL (FIVE THOUSAND) SUBCUT SCH ×2 (06:12→14:00)
[2018-11-23 06:38] LABS: ABS Eosinophils 0.1 10^3/ul (0-0.6); ABS Lymphocytes 1.6 10^3/ul (1.0-4.8); ABS Monocytes 0.5 10^3/ul (0-0.8); ABS Neutrophils 3.2 10^3/ul (1.5-7.7); Eosinophil % 2.3 %; Hematocrit 25 % (35-47); Hemoglobin 8.2 g/dL (12.0-16.0); Lymphocyte % 29.9 %; Mean Corpuscular HGB Conc 33 g/dL (31-36); Mean Corpuscular Hemoglobin 31 pg (27-31); Mean Corpuscular Volume 95 fL (80-97); Mean Platelet Volume 9.2 fL (7.4-10.4); Platelet Count 201 10^3/uL (150-450); Red Blood Count 2.64 10^6 /uL (3.70-4.87); Red Cell Distribution Width 15 % (10-15); White Blood Count 5.5 10^3/uL (3.5-10.8)
[2018-11-23 07:00] LABS: BUN/Creatinine Ratio 22.5 (8-20); Calcium 9.7 mg/dL (8.6-10.3); EGFR African American 73.7 (>60); EGFR Non-African American 60.9 (>60); Magnesium 1.8 mg/dL (1.9-2.7); Potassium 3.9 mmol/L (3.5-5.0)
[2018-11-23] MEDS: Magnesium Sulfate 2 GM IV* 2 GM/50 ML BAG IVPB ONE ×2 (08:38→09:40)
[2018-11-23] MEDS: Losartan TAB* 25 MG PO SCH (08:40)
[2018-11-23] MEDS: Cyanocobalamin TAB* 500 MCG PO SCH (08:40)
[2018-11-23] MEDS: Pantoprazole TAB * 40 MG TAB PO SCH (08:44)
[2018-11-23] MEDS: Amiodarone TAB* 200 MG PO SCH (08:44)
[2018-11-23] MEDS: Metoprolol Tartrate TAB* 50 mg PO SCH (08:45)
[2018-11-23] MEDS ORDERED: Magnesium Oxide TAB* 400 MG PO SCH (09:00)
[2018-11-23] MEDS ORDERED: Cholecalciferol TAB* 400 UNIT PO SCH (09:00)
[2018-11-23] MEDS: Folic Acid TAB* 1 MG PO SCH (09:06)
--- NOTE | 2018-11-23 14:33 | DS ---
CC: Dr. Kanu Bhardwaj * DISCHARGE SUMMARY: DATE OF ADMISSION: 11/20/18 DATE OF DISCHARGE: 11/23/18 PRIMARY CARE PROVIDER: Dr. Kanu Bhardwaj. MY ATTENDING WHILE IN THE HOSPITAL: Dr. Rosmery Machado.* (DICTATED BY FATEMEH DIAMOND) PRIMARY DISCHARGE DIAGNOSES: 1. Fall with right acetabular and anterior pubic ramus fracture. 2. Hypercalcemia due to hyperparathyroidism, unclear cause. 3. Osteoporosis. SECONDARY DISCHARGE DIAGNOSES: 1. Hypertension. 2. Hyperlipidemia. 3. Rheumatoid arthritis. 4. Type 2 diabetes mellitus. 5. History of cerebrovascular accident. 6. Supraventricular tachycardia. 7. Atrial flutter. 8. Left bundle branch block. 9. Coronary artery disease. 10. Restless legs syndrome. 11. Heart failure with reduced ejection fraction, EF 40% to 45%. 12. History of carotid endarterectomy. 13. Mild dementia. 14. Frequent falls. 15. Sick sinus syndrome, status post pacemaker. 16. Iron deficiency. 17. Recent C1 fractures. STUDIES DONE WHILE IN THE HOSPITAL: Femur x-ray from 11/20/18 read as osteopenia with no femoral fracture, right superior pubic ramus fracture is better characterized by CT. Chest x-ray read as postsurgical changes, no evidence of acute findings. Cervical spine CT read as nondisplaced fracture to the lateral aspect of the posterior arch of C1, which is unchanged from 11/01/18. Multilevel degenerative changes with varying degrees of spinal and neural foraminal stenosis, which is similar prior study, no acute interval fracture is identified. Pelvis CT read as nondisplaced fracture to the lateral aspect of the right superior pubic ramus and anterior acetabulum, subcutaneous infiltration lateral to the right hip, sigmoid diverticulosis without diverticulitis, otherwise negative CT pelvis. Pelvis x-ray standing from 11/22/18 read as right acetabular superior pubic ramus fractures noted on CT not seen on current examination. Repeat pelvis x- ray shows no significant changes. MEDICATIONS AT DISCHARGE: 1. Ambien 5 mg p.o. at bedtime as needed. 2. Ropinirole 2 mg p.o. at bedtime. 3. Omeprazole 40 mg p.o. daily. 4. Vitamin B12 1000 mcg p.o. daily. 5. Losartan 50 mg p.o. daily. 6. Folic acid 1 mg p.o. daily. 7. Amiodarone 200 mg p.o. daily. 8. Metoprolol tartrate 50 mg p.o. b.i.d. 9. Magnesium oxide 400 mg p.o. daily. 10. Tylenol 650 mg p.o. q.6 hours as needed. 11. Vitamin D 800 units p.o. daily. 12. Ferrous sulfate 325 mg p.o. every other day. 13. [place] 5/325 one tab p.o. q.4 hours as needed. New medications on discharge: 1. Tylenol. 2. Vitamin D. 3. Ferrous sulfate. 4. [place]. Medications discontinued on discharge: 1. Prolia 60 mg p.o. q.6 months. 2. Vitamin D 5000 units p.o. daily. HOSPITAL COURSE: This is a brief summary of the patient's presentation. For more details, please see the history and physical from Loulou Ghosh MD on 03/10. In brief, the patient is an 83-year-old female with past medical history significant for the above, who has had numerous recent falls at her daughter's house related to nighttime wandering and unsteadiness on her feet. The patient was previously seen in the emergency department and discharged for her C1 fracture as noted above. The patient prior to admission was walking in her living room, was trying to sit down in a chair, missed, hit the floor and complained of immediate hip pain thereafter. The patient was brought to the emergency department. The patient had no loss of consciousness or head trauma. The patient was found to have acetabular fracture as above. The patient's laboratory data was significant for an elevated calcium, elevated alkaline phosphatase. The patient had a PTH, which was normal despite her high calcium and a high vitamin D. The patient's calcium corrected with fluids. The patient worked with physical therapy and was identified to have rehab needs. The patient in the hospital has initially very significant pain with ambulation , but this improved significantly through her hospitalization. The patient required minimal pain medications and was able to ambulate to bathroom back with one assist on a day of her discharge. The patient had some mild hyponatremia in the hospital and some significant hypermagnesemia, both of which were improving at the time of her discharge. The patient due to her anemia had an iron panel, which showed likely iron-deficiency anemia. The patient has CRP, which was elevated at 34.84, which is significantly greater than most of her previous studies. The patient was accepted to [facility] for rehab. The patient was not deemed to need surgical intervention for her acetabular fracture per Orthopedics and had 2 pelvis x- rays standing as above, documenting no instability. The patient had no worsening of her C1 fracture on a CT of her neck. The patient was stable enough for discharge to rehab on 11/23/18. PHYSICAL EXAMINATION ON THE DAY OF DISCHARGE: General: The patient is an 83- year- old female who appears stated age, has a [place] J collar and is sitting in the bed, in no acute distress. Vital Signs: At the time of evaluation, temperature 98.3, pulse rate 53, respiratory rate 20, oxygen saturation 100% on room air, blood pressure of 120/40. HEENT: Head: Normocephalic and Atraumatic. Sclerae anicteric. No conjunctival injection. Nasal mucosa moist. Oral mucosa moist. No oropharyngeal erythema, discharge, or exudate. Neck: Difficult to examine due to [place] J collar. Cardiac: Regular rate and rhythm. No clicks, murmurs, gallops, or rubs. Pulses are 2+ in the dorsalis pedis, posterior tibialis, and radial areas. 1+ bilateral lower extremity edema noted. Respiratory: Clear to auscultation bilaterally. No wheezes, rales, or rhonchi. Good air exchange bilaterally. Abdomen: Soft, nontender, and nondistended. Bowel sounds present and normoactive in all 4 quadrants. No hepatosplenomegaly. No abdominal bruits auscultated. No hepatojugular reflux. Genitourinary: No suprapubic or CVA tenderness. Skin: Clean, dry, and intact. No rashes. Neuro: Cranial nerves II through XII intact. No focal deficits. Alert and oriented x3, somewhat forgetful. Psychiatric: Very pleasant and cooperative. DISCHARGE PLAN BY PROBLEM: 1. Acetabular and pubic ramus fracture. This was managed nonoperative. The patient will have physical therapy, occupational therapy, [place] and Tylenol for pain control. The patient should follow up outpatient within 2 weeks with Orthopedics for ongoing management. 2. Hypercalcemia. The patient's hypercalcemia is improved with fluids and zoledronic acid, which she received while in the hospital with recommendation of Endocrinology. The patient will have an outpatient parathyroid ultrasound per recommendation of Endocrinology and after this, she would follow up with Endocrinology within 1 month to discuss options for management of her hyperparathyroidism, hypercalcemia. The patient's hypercalcemia was possibly contributing to her falls and its treatment may help decrease her propensity for falling and her propensity for fractures. 3. C1 fracture. The patient has a CT of her neck, which shows disability. The patient was scheduled outpatient for cervical spine x-rays, these are likely not indicated at this time. The patient should follow up in next 2 weeks with Neurosurgery as previously scheduled. 4. Rheumatoid arthritis. The patient is not on any immunosuppressive therapy at this time. The patient should follow up outpatient with Rheumatology to discuss ongoing treatment of this. The patient had a CRP which was 34, but does not have significant evidence of disease at this time. 5. Vitamin D deficiency. The patient's vitamin D supplementation was decreased as she had a high vitamin D and high calcium while in the hospital. This should be followed outpatient through her primary or her general duty nurse. 6. History of atrial flutter. The patient has a pacemaker. She does not appear to be in atrial fibrillation at this time. The patient is not on anticoagulation due to very frequent falls. 7. Hypertension. Continue the patient's home metoprolol and losartan. The patient has been normotensive consistently with her hospitalization. The patient is not orthostatic. 8. Anemia. The patient is mildly iron deficient, start ferrous sulfate. Continue the patient's B12 and folate supplementation. Consider outpatient Hematology evaluation if the patient's normocytic anemia gets worse. 9. History of CVA. This is likely related to the patient's atrial fibrillation. The patient does not appear to be in AFib at this time. Continue Lipitor daily. 10. Diabetes mellitus type 2. The patient should continue with diet control. The patient's A1c is acceptable for her age at this time. 11. Heart failure with reduced ejection fraction. Continue the patient's losartan and metoprolol. The patient should be diuresed as needed. Followed by outpatient Cardiology. DISPOSITION: [facility]. CONDITION: Stable. TIME SPENT: Approximately 60 minutes were spent on the discharge of this patient, 30 of which was spent [id number] with the patient obtaining history and physical and discussing treatment plan. FATEMEH DIAMOND [id number]/JOSH #: [id number] JONES
[2018-11-23 16:15] VITALS: BP 123/47
== END 2018-11-23 16:30 | DRG 535 ==
LOC: ED 04:09 → MED 08:12
PROVIDERS: ADMIT Internal Medicine; ATTEND Internal Medicine
DX: S32.591A Other specified fracture of right pubis, initial encounter for closed fracture (principal); S32.401A Unspecified fracture of right acetabulum, initial encounter for closed fracture; S12.9XXA Fracture of neck, unspecified, initial encounter; I50.22 Chronic systolic (congestive) heart failure; E87.1 Hypo-osmolality and hyponatremia; E11.9 Type 2 diabetes mellitus without complications; I25.10 Atherosclerotic heart disease of native coronary artery without angina pectoris; E78.00 Pure hypercholesterolemia, unspecified; I10 Essential (primary) hypertension; K21.9 Gastro-esophageal reflux disease without esophagitis; Z96.1 Presence of intraocular lens; E78.5 Hyperlipidemia, unspecified; M06.9 Rheumatoid arthritis, unspecified; G25.81 Restless legs syndrome; I11.0 Hypertensive heart disease with heart failure; I44.7 Left bundle-branch block, unspecified; Z96.653 Presence of artificial knee joint, bilateral; Z96.611 Presence of right artificial shoulder joint; F03.90 Unspecified dementia, unspecified severity, without behavioral disturbance, psychotic disturbance, mood disturbance, and anxiety; M81.0 Age-related osteoporosis without current pathological fracture; E21.0 Primary hyperparathyroidism; R29.6 Repeated falls; I49.5 Sick sinus syndrome; D50.9 Iron deficiency anemia, unspecified; E83.41 Hypermagnesemia; E55.9 Vitamin D deficiency, unspecified; W18.39XA Other fall on same level, initial encounter; Y92.9 Unspecified place or not applicable; Z88.8 Allergy status to other drugs, medicaments and biological substances; Z91.041 Radiographic dye allergy status; Z88.0 Allergy status to penicillin; Z88.1 Allergy status to other antibiotic agents; Z88.5 Allergy status to narcotic agent; Z90.49 Acquired absence of other specified parts of digestive tract; Z98.41 Cataract extraction status, right eye; Z98.42 Cataract extraction status, left eye; Z86.73 Personal history of transient ischemic attack (TIA), and cerebral infarction without residual deficits; Z95.1 Presence of aortocoronary bypass graft; Z95.0 Presence of cardiac pacemaker; Z82.5 Family history of asthma and other chronic lower respiratory diseases; Z80.42 Family history of malignant neoplasm of prostate
CPT/HCPCS: 36415; 71045; 72125; 72170; 72190; 72192; 80048; 80053; 81003; 82306; 82728; 83540; 83550; 83735; 83970; 84100; 84155; 84165; 84443; 85025; 85610; 86140; 87086; 93005; 96372; 96374; 99284; A9270-GY; G8978-GP-CL; G8979-GP-CH; J1644; J3010; J3475; J3489

== ENCOUNTER 2019-03-06 23:58 | Inpatient (IN) | payer MEDICARE ==
--- OUTSIDE RECORDS SUMMARY | 2019-03-07 00:07 | XMS REPORT ---
:1935 Author Organization [facility] Care Team Providers Name Role Phone Unavailable Unavailable Unavailable Problems Condition Condition Condition Status Onset Resolution Last Treating Comments Name Details Category Date Date Treatment Clinician Date Unspecified Unspecified Diagnosis Active 2018-02 Lizabeth fracture of fracture of 0-04 Carrier RN right right acetabulum, acetabulum, subsequent subsequent encounter encounter for for fracture fracture with with routine routine healing healing Other Other Diagnosis Active 2018-02 Lizabeth specified specified 0-04 Carrier RN fracture of fracture of right right pubis, pubis, subsequent subsequent encounter encounter for for fracture fracture with with routine routine healing healing Stable Stable Diagnosis Active 2018-02 Lizabeth burst burst 0-04 Carrier RN fracture of fracture of first first thoracic thoracic vertebra, vertebra, subsequent subsequent encounter encounter for for fracture fracture with with routine routine healing healing Hypertensiv Hypertensiv Diagnosis Active 2018-02 Lizabeth e heart e heart 0-04 Carrier RN disease disease with heart with heart failure failure Chronic Chronic Diagnosis Active 2018-02 Lizabeth systolic systolic 0-04 Carrier RN (congestive (congestive ) heart ) heart failure failure Type 2 Type 2 Diagnosis Active 2018-02 Lizabeth diabetes diabetes 0-04 Carrier RN mellitus mellitus without without complicatio complicatio ns ns Unspecified Unspecified Diagnosis Active Lizabeth dementia dementia Carrier RN without without behavioral behavioral disturbance disturbance Hyperparath Hyperparath Diagnosis Active Lizabeth yroidism, yroidism, Carrier RN unspecified unspecified Unspecified Unspecified Diagnosis Active Lizabeth atrial atrial Carrier RN fibrillatio fibrillatio n n Rheumatoid Rheumatoid Diagnosis Active Lizabeth arthritis, arthritis, Carrier RN unspecified unspecified 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 Carrier RN disease of disease of [place] coronary coronary artery artery without without angina angina pectoris pectoris Hyperlipide Hyperlipide Diagnosis Active Lizabeth celia, celia, Carrier RN unspecified unspecified Sick sinus Sick sinus Diagnosis Active Lizabeth syndrome syndrome Carrier RN Restless Restless Diagnosis Active Lizabeth legs legs Carrier RN syndrome syndrome History of History of Diagnosis Active Lizabeth falling falling Carrier RN Presence of Presence of Diagnosis Active Lizabeth cardiac cardiac Carrier RN pacemaker pacemaker Presence of Presence of Diagnosis Active Ilzabeth artificial artificial Carrier RN knee joint, knee joint, bilateral bilateral Presence of Presence of Diagnosis Active Lizabeth aortocorona aortocorona Carrier RN ry bypass ry bypass graft graft Personal Personal Diagnosis Active Lizabeth history of history of Carrier RN transient transient ischemic ischemic attack attack (TIA), and (TIA), and cerebral cerebral infarction infarction without without residual residual deficits deficits Pain frequent Pain Mgmt Active 2018-02 Caty pain 04-11 [place] 12:25: [id number] 00 Cardio edema Cardiovasc Active 2018-02 Caty ular 04-11 [place] 12:25: [id number] 00 Respiratory lung sounds Respirator Active 2018-02 Caty deficit y 04-11 [place] 12:25: [id number] 00 Respiratory dyspnea Respirator Active 2018-02 Caty present y 04-11 [place] 12:25: [id number] 00 Endo/Hansel diabetic Endo/Hansel Resolve 2018-022019-02-22 Caty foot care d 04-11 15:05:00 [place] 12:25: [id number] 00 Sensory impaired Sensory Active 2018-02 Caty hearing 04-11 [place] 12:25: [id number] 00 Integument skin Integument Active 2018-02 Caty integrity 04-11 [place] risk 12:25: [id number] Nutrition nutritional Nutrition Active 2018-02 Caty restriction 04-11 [place] s 12:25: [id number] 00 Elimination urinary Eliminatio Active 2018-02 Caty incontinenc n 04-11 [place] e 12:25: [id number] 00 Elimination bowel Eliminatio Active 2018-02 Caty incontinenc n 04-11 [place] e 12:25: [id number] 00 Neuro confusion Neuro/Emot Active 2018-02 Caty present ion 04-11 [place] 12:25: [id number] 00 Neuro impaired Neuro/Emot Active 2018-02 Caty decision-ma ion 04-11 [place] winnie 12:25: [id number] 00 Neuro memory Neuro/Emot Active 2018-02 Caty deficit ion 04-11 [place] needing 12:25: [id number] supervision 00 Activity ADL Activity Active 2018-02 Caty assistance 04-11 [place] required 12:25: [id number] 00 Activity self-care Activity Active 2018-02 Caty deficit 04-11 [place] 12:25: [id number] 00 Safety structural Safety Active 2018-02 Caty barriers 04-11 [place] present 12:25: [id number] 00 Safety cannot be Safety Active 2018-02 Caty left alone 04-11 [place] 12:25: [id number] 00 Safety fall risk Safety Active 2018-02 Caty factor 04-11 [place] present 12:25: [id number] 00 Safety risk for Safety Active 2018-02 Caty hospitaliza 04-11 [place] tion 12:25: [id number] 00 Medication oral med Meds Active 2018-02 Caty assistance 04-11 [place] required 12:25: [id number] 00 Musculoskel transfer Musculoske Resolve 2018-022019-02-21 Caty etal assistance letal d 2-20 16:00:00 [place] required 12:25: [id number] 00 Musculoskel requires Musculoske Resolve 2018-022019-02-21 Caty etal human letal d -20 16:00:00 [place] assist to 12:25: [id number] leave home 00 Cardio hypertensio Cardiovasc Active 2018-02 Lizabeth n ular 2-23 Carrier RN 16:40: 00 Cardio knowledge/s Cardiovasc Active 2018-02 Lizabeth kill ular 2-23 Carrier RN deficit: pt 16:40: 00 Cardio knowledge/s Cardiovasc Active 2018-02 Lizabeth kill ular 2-23 Carrier RN deficit: cg 16:40: 00 Cardio pacemaker/I Cardiovasc Active 2018-02 Lizabeth CD ular 2-23 Carrier RN 16:40: 00 Integument knowledge/s Integument Active 2018-02 Lizabeth kill 2-26 Carrier RN deficit: pt 16:40: 00 Integument knowledge/s Integument Active 2018-02 Lizabeth kill 2-26 Carrier RN deficit: cg 16:40: 00 Safety can be left Safety Active 2018-02 Tina alone for 2- Lionel only short 14:30: [id number] periods 00 Allergies, Adverse Reactions, Alerts Allergy Name Allergy Status Severity Reaction(s) Onset Inactive Treating Comments Type Date Date Clinician amoxicillin Unknown Active Unknown Reaction Mesha Unknown 5-10 (Ni) Altagracia [id number] clavulanic Unknown Active Unknown Reaction Mesha acid Unknown 5-10 (Ni) Altagracia [id number] hydroxyzine Unknown Active Unknown Reaction Mesha Unknown 5-10 (Ni) Altagracia [id number] IVP dye Unknown Active Unknown Reaction Mesha Unknown 5-10 (Ni) Altagracia [id number] oxycodone Unknown Active Unknown Reaction Mesha Unknown 5-10 (Ni) Altagracia [id number] Medications Ordered Filled Start Stop Current Ordering Indication Dosage Frequency Signature Comments Components Medication Medication Date Date Medication? Clinician (SIG) Name Name rodolfo mcmullenbala 2018-02- Yes Asotin Unknown Unknown min (vit min (vit 04-11 Kanu SIMMS B-12) 2,500 B-12) 2,500 mcg mcg sublingual sublingual tablet tablet folic acid folic acid 2018-02- Yes Asotin Unknown Unknown 1 mg tablet 1 mg tablet 04-11 Kanu SIMMS lisinopril lisinopril No Asotin 2 Unknown 10 10 Kanu SIMMS tablets mg-hydrochl mg-hydrochl orothiazide orothiazide 12.5 mg 12.5 mg tablet tablet metHOTREXat metHOTREXat No Asotin 10 mg Unknown e sodium e sodium Kanu SIMMS 2.5 mg 2.5 mg tablet tablet metoprolol metoprolol No Asotin Unknown Unknown tartrate 50 tartrate 50 Kanu SIMMS mg tablet mg tablet pantoprazol pantoprazol No Asotin Unknown Unknown e 40 mg e 40 mg Kanu SIMMS tablet,kathe tablet,kathe yed release yed release rOPINIRole rOPINIRole 2018-02 Yes Asotin Unknown Unknown 2 mg tablet 2 mg tablet 04-11 Kanu SIMMS Xarelto 20 Xarelto 20 No Asotin Unknown Unknown mg tablet mg tablet Kanu SIMMS atorvastati atorvastati No Asotin Unknown Unknown n 40 mg n 40 mg Kanu SIMMS tablet tablet losartan 50 losartan 50 2018-02 Yes Asotin Unknown Unknown mg tablet mg tablet 04-11 Kanu SIMMS denosumab denosumab No Asotin Unknown Unknown 60 mg/mL 60 mg/mL Kanu SIMMS subcutaneou subcutaneou s syringe s syringe zolpidem 5 zolpidem 5 No Asotin Unknown Unknown mg tablet mg tablet Kanu SIMMS cyanocobala cyanocobala No Asotin Unknown Unknown min (vit min (vit Kanu SIMMS B-12) 1,000 B-12) 1,000 mcg tablet mcg tablet amLODIPine amLODIPine No Asotin Unknown Unknown 5 mg tablet 5 mg tablet Kanu SIMMS benzonatate benzonatate No Asotin Unknown Unknown 100 mg 100 mg Kanu SIMMS capsule capsule furosemide furosemide 2018-02 Yes Brand Unknown Unknown 20 mg 20 mg 2- MDDonaldo tablet tablet cephALEXin cephALEXin No Asotin Unknown Unknown 250 mg 250 mg Kanu SIMMS capsule capsule FLUoxetine FLUoxetine No Asotin Unknown Unknown 10 mg 10 mg Kanu SIMMS capsule capsule amiodarone amiodarone 2018-02 Yes Asotin Unknown Unknown 200 mg 200 mg 04-11 Kanu SIMMS tablet tablet magnesium magnesium 2018-02 Yes Asotin Unknown Unknown oxide 400 oxide 400 04-11 Kanu SIMMS mg (241.3 mg (241.3 mg mg magnesium) magnesium) tablet tablet Protonix 40 Protonix 40 2018-02 Yes Asotin Unknown Unknown mg mg 04-11 Kanu SIMMS tablet,kathe tablet,kathe yed release yed release Vitamin D3 Vitamin D3 2018-02 Yes Asotin Unknown Unknown 1,000 unit 1,000 unit 04-11 Kanu SIMMS capsule capsule ferrous ferrous 2018-02 Yes Asotin Unknown Unknown sulfate 325 sulfate 325 04-11 Kanu SIMMS mg (65 mg mg (65 mg iron) iron) tablet tablet cholecalcif cholecalcif 2018-02 Yes Asotin Unknown Unknown dario dario Kanu SIMMS (vitamin (vitamin D3) 5,000 D3) 5,000 unit tablet unit tablet pantoprazol pantoprazol 2018-02 Yes Asotin Unknown Unknown e 40 mg e 40 mg Kanu SIMMS tablet,kathe tablet,kathe yed release yed release Ambien 5 mg Ambien 5 mg 2018-02 Yes Asotin Unknown Unknown tablet tablet 02-18 Kanu SIMMS metoprolol metoprolol 2018-02 Yes Asotin Unknown Unknown 04-18 Kanu SIMMS Tylenol 325 Tylenol 325 2018-02 Yes Asotin Unknown Unknown mg tablet mg tablet 04-18 Kanu SIMMS Multiple Multiple Yes Asotin Unknown Unknown Vitamin, Vitamin, 02-22 Kanu SIMMS Womens Womens tablet tablet Vitamin C Vitamin C Yes Asotin Unknown Unknown 500 mg 500 mg 02-22 Kanu SIMMS chewable chewable tablet tablet Vital Signs Vital Name Observation Time Observation Value Comments SYSTOLIC mm[Hg] 2019-02-25 18:09:44 130 mm[Hg] mm[Hg] Method: Sit SYSTOLIC mm[Hg] 2019-02-08 18:09:27 136 mm[Hg] mm[Hg] Method: Stand DIASTOLIC mm[Hg] 2019-02-25 18:09:44 78 mm[Hg] mm[Hg] Method: Sit DIASTOLIC mm[Hg] 2019-02-08 18:09:27 76 mm[Hg] mm[Hg] Method: Stand PULSE 2019-02-25 18:09:44 66 /min /min RESP RATE 2019-02-25 18:09:44 16 /min /min TEMP 2019-02-25 18:09:44 98.8 [degF] Procedures This patient has no known procedures. Results This patient has no known results.
--- OUTSIDE RECORDS SUMMARY | 2019-03-07 00:07 | XMS REPORT ---
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 [...] pacemaker Presence of Presence of Diagnosis Active Lizabeth artificial artificial Carrier RN knee joint, knee [...] Pain Mgmt Active 2018-02 Caty pain 04-11 [place] 12:25: [id number] 00 Cardio edema Cardiovasc Active 2018-02 Caty ular 04-11 [place] 12:25: [id number] 00 Respiratory lung sounds Respirator Active 2018-02 Caty deficit y 04-11 [place] 12:25: [id number] 00 Respiratory dyspnea Respirator Active 2018-02 Caty present y 04-11 [place] 12:25: [id number] 00 Endo/Hansel diabetic Endo/Hansel Resolve 2018-022019-02-22 Caty foot care d 04-11 15:05:00 [place] 12:25: [id number] 00 Sensory impaired Sensory Active 2018-02 Caty hearing 04-11 [place] 12:25: [id number] 00 Integument skin Integument Active 2018-02 Caty integrity 04-11 [place] risk 12:25: [id number] Nutrition nutritional Nutrition Active 2018-02 Caty restriction 04-11 [place] s 12:25: [id number] 00 Elimination urinary Eliminatio Active 2018-02 Caty incontinenc n 04-11 [place] e 12:25: [id number] 00 Elimination bowel Eliminatio Active 2018-02 Caty incontinenc n 04-11 [place] e 12:25: [id number] 00 Neuro confusion Neuro/Emot Active 2018-02 Caty present ion 04-11 [place] 12:25: [id number] Neuro impaired Neuro/Emot Active 2018-02 Caty decision-ma ion 04-11 [place] winnie 12:25: [id number] 00 Neuro memory Neuro/Emot Active 2018-02 Caty deficit ion 04-11 [place] needing 12:25: [id number] supervision 00 Activity ADL Activity Active 2018-02 Caty assistance 04-11 [place] required 12:25: [id number] Activity self-care Activity Active 2018-02 Caty deficit 04-11 [place] 12:25: [id number] 00 Safety structural Safety Active 2018-02 Caty barriers 04-11 [place] present 12:25: [id number] 00 Safety cannot be Safety Active 2018-02 Caty left alone 04-11 [place] 12:25: [id number] 00 Safety fall risk Safety Active 2018-02 Caty factor 04-11 [place] present 12:25: [id number] Safety risk for Safety Active 2018-02 Caty hospitaliza 04-11 [place] tion 12:25: [id number] 00 Medication oral med Meds Active 2018-02 Caty assistance 04-11 [place] required 12:25: [id number] 00 Musculoskel transfer Musculoske Resolve 2018-022019-02-21 Caty etal assistance letal d 2-20 16:00:00 [place] required 12:25: [id number] 00 Musculoskel requires Musculoske Resolve 2018-022019-02-21 Caty etal human letal d -20 16:00:00 [place] assist to 12:25: [id number] leave home 00 Cardio hypertensio Cardiovasc Active [...] alone for 2- Lionel only short 14:30: [id number] periods 00 Allergies, Adverse Reactions, Alerts Allergy Name Allergy Status Severity Reaction(s) Onset Inactive Treating Comments Type Date Date Clinician amoxicillin Unknown Active Unknown Reaction Mesha Unknown 5-10 (Ni) Altagracia [id number] clavulanic Unknown Active Unknown Reaction Mesha acid Unknown 5-10 (Ni) Altagracia [id number] hydroxyzine Unknown Active Unknown Reaction Mesha Unknown 5-10 (Ni) Altagracia [id number] IVP dye Unknown Active Unknown Reaction Mesha Unknown 5-10 (Ni) Altagracia [id number] oxycodone Unknown Active Unknown Reaction Mesha Unknown 5-10 (Ni) Altagracia [id number] Medications Ordered Filled Start Stop Current Ordering Indication Dosage Frequency Signature Comments Components Medication Medication Date Date Medication? Clinician (SIG) Name Name rodolfo mcmullenbala 2018-02- Yes Pender Unknown Unknown min (vit min (vit 04-11 Kanu SIMMS B-12) 2,500 B-12) 2,500 mcg mcg sublingual sublingual tablet tablet folic acid folic acid 2018-02- Yes Pender Unknown Unknown 1 mg tablet 1 mg tablet 04-11 Kanu SIMMS lisinopril lisinopril No Pender 2 Unknown 10 10 Kanu SIMMS tablets mg-hydrochl mg-hydrochl orothiazide orothiazide 12.5 mg 12.5 mg tablet tablet metHOTREXat metHOTREXat No Pender 10 mg Unknown e sodium e sodium Kanu SIMMS 2.5 mg 2.5 mg tablet tablet metoprolol metoprolol No Pender Unknown Unknown tartrate 50 tartrate 50 Kanu SIMMS mg tablet mg tablet pantoprazol pantoprazol No Pender Unknown Unknown e 40 mg e 40 mg Kanu SIMMS tablet,kathe tablet,kathe yed release yed release rOPINIRole rOPINIRole 2018-02 Yes Pender Unknown Unknown 2 mg tablet 2 mg tablet 04-11 Kanu SIMMS Xarelto 20 Xarelto 20 No Pender Unknown Unknown mg tablet mg tablet Kanu SIMMS atorvastati atorvastati No Pender Unknown Unknown n 40 mg n 40 mg Kanu SIMMS tablet tablet losartan 50 losartan 50 2018-02 Yes Pender Unknown Unknown mg tablet mg tablet 04-11 Kanu SIMMS denosumab denosumab No Pender Unknown Unknown 60 mg/mL 60 mg/mL Kanu SIMMS subcutaneou subcutaneou s syringe s syringe zolpidem 5 zolpidem 5 No Pender Unknown Unknown mg tablet mg tablet Kanu SIMMS cyanocobala cyanocobala No Pender Unknown Unknown min (vit min (vit Kanu SIMMS B-12) 1,000 B-12) 1,000 mcg tablet mcg tablet amLODIPine amLODIPine No Pender Unknown Unknown 5 mg tablet 5 mg tablet Kanu SIMMS benzonatate benzonatate No Pender Unknown Unknown 100 mg 100 mg Kanu SIMMS capsule capsule furosemide furosemide 2018-02 Yes Brand Unknown Unknown 20 mg 20 mg 2- MDDonaldo tablet tablet cephALEXin cephALEXin No Pender Unknown Unknown 250 mg 250 mg Kanu SIMMS capsule capsule FLUoxetine FLUoxetine No Pender Unknown Unknown 10 mg 10 mg Kanu SIMMS capsule capsule amiodarone amiodarone 2018-02 Yes Pender Unknown Unknown 200 mg 200 mg 04-11 Kanu SIMMS tablet tablet magnesium magnesium 2018-02 Yes Pender Unknown Unknown oxide 400 oxide 400 04-11 Kanu SIMMS mg (241.3 mg (241.3 mg mg magnesium) magnesium) tablet tablet Protonix 40 Protonix 40 2018-02 Yes Pender Unknown Unknown mg mg 04-11 Kanu SIMMS tablet,kathe tablet,kathe yed release yed release Vitamin D3 Vitamin D3 2018-02 Yes Pender Unknown Unknown 1,000 unit 1,000 unit 04-11 Kanu SIMMS capsule capsule ferrous ferrous 2018-02 Yes Pender Unknown Unknown sulfate 325 sulfate 325 04-11 Kanu SIMMS mg (65 mg mg (65 mg iron) iron) tablet tablet cholecalcif cholecalcif 2018-02 Yes Pender Unknown Unknown dario dario Kanu SIMMS (vitamin (vitamin D3) 5,000 D3) 5,000 unit tablet unit tablet pantoprazol pantoprazol 2018-02 Yes Pender Unknown Unknown e 40 mg e 40 mg Kanu SIMMS tablet,kathe tablet,kathe yed release yed release Ambien 5 mg Ambien 5 mg 2018-02 Yes Pender Unknown Unknown tablet tablet 02-18 Kanu SIMMS metoprolol metoprolol 2018-02 Yes Pender Unknown Unknown 04-18 Kanu SIMMS Tylenol 325 Tylenol 325 2018-02 Yes Pender Unknown Unknown mg tablet mg tablet 04-18 Kanu SIMMS Multiple Multiple Yes Pender Unknown Unknown Vitamin, Vitamin, 02-22 Kanu SIMMS Womens Womens tablet tablet Vitamin C Vitamin C Yes Pender Unknown Unknown 500 mg 500 mg 02-22 [...]
--- OUTSIDE RECORDS SUMMARY | 2019-03-07 00:07 | XMS REPORT ---
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 [...] Pain Mgmt Active 2018-02 Caty pain 04-11 [place] 12:25: [id number] 00 Cardio edema Cardiovasc Active 2018-02 Caty ular 04-11 [place] 12:25: [id number] 00 Respiratory lung sounds Respirator Active 2018-02 Caty deficit y 04-11 [place] 12:25: [id number] 00 Respiratory dyspnea Respirator Active 2018-02 Caty present y 04-11 [place] 12:25: [id number] 00 Endo/Hansel diabetic Endo/Hansel Active 2018-02 Caty foot care 04-11 [place] 12:25: [id number] 00 Sensory impaired Sensory Active 2018-02 Caty hearing 04-11 [place] 12:25: [id number] 00 Integument skin Integument Active 2018-02 Caty integrity 04-11 [place] risk 12:25: [id number] 00 Nutrition nutritional Nutrition Active 2018-02 Caty restriction 04-11 [place] s 12:25: [id number] 00 Elimination urinary Eliminatio Active 2018-02 Caty incontinenc n 04-11 [place] e 12:25: [id number] 00 Elimination bowel Eliminatio Active 2018-02 Caty incontinenc n 04-11 [place] e 12:25: [id number] 00 Neuro confusion Neuro/Emot Active 2018-02 Caty present ion 04-11 [place] 12:25: [id number] 00 Neuro impaired Neuro/Emot Active 2018-02 Caty decision-ma ion 04-11 [place] winnie 12:25: [id number] 00 Neuro memory Neuro/Emot Active 2018-02 Caty deficit ion 04-11 [place] needing 12:25: [id number] supervision 00 Activity ADL Activity Active 2018-02 Caty assistance 04-11 [place] required 12:25: [id number] Activity self-care Activity Active 2018-02 Caty deficit 04-11 [place] 12:25: [id number] 00 Safety structural Safety Active 2018-02 Caty barriers 04-11 [place] present 12:25: [id number] 00 Safety cannot be Safety Active 2018-02 Caty left alone 04-11 [place] 12:25: [id number] 00 Safety fall risk Safety Active 2018-02 Caty factor 04-11 [place] present 12:25: [id number] 00 Safety risk for Safety Active 2018-02 Caty hospitaliza 04-11 [place] tion 12:25: [id number] 00 Medication oral med Meds Active 2018-02 Caty assistance 04-11 [place] required 12:25: [id number] Musculoskel transfer Musculoske Resolve 2018-022019-02-21 Caty etal assistance letal d 04-11 16:00:00 [place] required 12:25: [id number] 00 Musculoskel requires Musculoske Resolve 2018-022019-02-21 Caty etal human letal d 04-11 16:00:00 [place] assist to 12:25: [id number] leave home 00 Cardio hypertensio Cardiovasc Active 2018-02 Lizabeth n ular 2-23 Carrier RN 16:40: 00 Cardio knowledge/s Cardiovasc Active 2018-02 Lizabeth purdy ular 2-23 Carrier RN deficit: pt 16:40: 00 Cardio knowledge/s Cardiovasc Active 2018-02 Lizabeth purdy ular 2-23 Carrier RN deficit: cg 16:40: 00 Cardio pacemaker/I Cardiovasc Active 2018-02 Lizabeth KASIE ular 2-23 Carrier RN 16:40: 00 Integument knowledge/s Integument Active 2018-02 Lizabeth kill 2-26 Carrier RN deficit: pt 16:40: 00 Integument knowledge/s Integument Active 2018-02 Lizabeth kill 2-26 Carrier RN deficit: cg 16:40: 00 Safety can be left Safety Active 2018-02 Tina alone for 2-30 Lion[place] only short 14:30: [id number] periods 00 Allergies, Adverse Reactions, Alerts Allergy Name Allergy Status Severity Reaction(s) Onset Inactive Treating Comments Type Date Date Clinician amoxicillin Unknown Active Unknown Reaction Mesha Unknown 5-10 (Ni) Altagracia [id number] clavulanic Unknown Active Unknown Reaction Mesha acid Unknown 5-10 (Ni) Altagracia [id number] hydroxyzine Unknown Active Unknown Reaction Mesha Unknown 5-10 (Ni) Altagracia [id number] IVP dye Unknown Active Unknown Reaction Mesha Unknown 5-10 (Ni) Altagracia [id number] oxycodone Unknown Active Unknown Reaction Mesha Unknown 5-10 (Ni) Altagracia [id number] Medications Ordered Filled Start Stop Current Ordering Indication Dosage Frequency Signature Comments Components Medication Medication Date Date Medication? Clinician (SIG) Name Name cyanocobala cyanocobala 2018-02- Yes Starr Unknown Unknown min (vit min (vit 04-11 Kanu SIMMS ) 2,500 ) 2,500 mcg mcg sublingual sublingual tablet tablet folic acid folic acid 2018-02- Yes Starr Unknown Unknown 1 mg tablet 1 mg tablet 04-11 Kanu SIMMS lisinopril lisinopril No Starr 2 Unknown 10 10 Kanu SIMMS tablets mg-hydrochl mg-hydrochl orothiazide orothiazide 12.5 mg 12.5 mg tablet tablet metHOTREXat metHOTREXat No Starr 10 mg Unknown e sodium e sodium Kanu SIMMS 2.5 mg 2.5 mg tablet tablet metoprolol metoprolol No Starr Unknown Unknown tartrate 50 tartrate 50 Kanu SIMMS mg tablet mg tablet pantoprazol pantoprazol No Starr Unknown Unknown e 40 mg e 40 mg Kanu SIMMS tablet,kathe tablet,kathe yed release yed release rOPINIRole rOPINIRole 2018-02 Yes Starr Unknown Unknown 2 mg tablet 2 mg tablet 04-11 Kanu SIMMS Xarelto 20 Xarelto 20 No Starr Unknown Unknown mg tablet mg tablet Kanu SIMMS atorvastati atorvastati No Starr Unknown Unknown n 40 mg n 40 mg Kanu SIMMS tablet tablet losartan 50 losartan 50 2018-02 Yes Starr Unknown Unknown mg tablet mg tablet 04-11 Kanu SIMMS denosumab denosumab No Starr Unknown Unknown 60 mg/mL 60 mg/mL Kanu SIMMS subcutaneou subcutaneou s syringe s syringe zolpidem 5 zolpidem 5 No Starr Unknown Unknown mg tablet mg tablet Kanu SIMMS cyanocobala cyanocobala No Starr Unknown Unknown min (vit min (vit ,Kanu B-12) 1,000 B-12) 1,000 mcg tablet mcg tablet amLODIPine amLODIPine No Starr Unknown Unknown 5 mg tablet 5 mg tablet Kanu SIMMS benzonatate benzonatate No Starr Unknown Unknown 100 mg 100 mg Kanu SIMMS capsule capsule furosemide furosemide 2018-02 Yes Brand Unknown Unknown 20 mg 20 mg 2- ,Donaldo tablet tablet cephALEXin cephALEXin No Starr Unknown Unknown 250 mg 250 mg Kanu SIMMS capsule capsule FLUoxetine FLUoxetine No Starr Unknown Unknown 10 mg 10 mg ,Kanu capsule capsule amiodarone amiodarone 2018-02 Yes Starr Unknown Unknown 200 mg 200 mg - Kanu SIMMS tablet tablet magnesium magnesium 2018-02 Yes Starr Unknown Unknown oxide 400 oxide 400 04-11 Kanu SIMMS mg (241.3 mg (241.3 mg mg magnesium) magnesium) tablet tablet Protonix 40 Protonix 40 2018-02 Yes Starr Unknown Unknown mg mg 04-11 Kanu SIMMS tablet,kathe tablet,kathe yed release yed release Vitamin D3 Vitamin D3 2018-02 Yes Starr Unknown Unknown 1,000 unit 1,000 unit 04-11 Kanu SIMMS capsule capsule ferrous ferrous 2018-02 Yes Starr Unknown Unknown sulfate 325 sulfate 325 04-11 Kanu SIMMS mg (65 mg mg (65 mg iron) iron) tablet tablet cholecalcif cholecalcif 2018-02 Yes Starr Unknown Unknown dario dario Kanu SIMMS (vitamin (vitamin D3) 5,000 D3) 5,000 unit tablet unit tablet pantoprazol pantoprazol 2018-02 Yes Starr Unknown Unknown e 40 mg e 40 mg Kanu SIMMS tablet,kathe tablet,kathe yed release yed release Ambien 5 mg Ambien 5 mg 2018-02- Yes Starr Unknown Unknown tablet tablet 02-18 Kanu SIMMS metoprolol metoprolol 2018-02 Yes Starr Unknown Unknown 04-18 Kanu SIMMS Tylenol 325 Tylenol 325 2018-02 Yes Starr Unknown Unknown mg tablet mg tablet 04-18 Kanu SIMMS Multiple Multiple Yes Starr Unknown Unknown Vitamin, Vitamin, - ,Kanu Womens Womens tablet tablet Vitamin C Vitamin C Yes Starr Unknown Unknown 500 mg 500 mg - Kanu SIMMS chewable chewable tablet tablet Vital Signs Vital Name Observation Time Observation Value Comments SYSTOLIC mm[Hg] 2019-02-24 18:09:43 138 mm[Hg] mm[Hg] Method: Sit SYSTOLIC mm[Hg] 2019-02-08 18:09:27 136 mm[Hg] mm[Hg] Method: Stand DIASTOLIC mm[Hg] 2019-02-24 18:09:43 80 mm[Hg] mm[Hg] Method: Sit DIASTOLIC mm[Hg] 2019-02-08 18:09:27 76 mm[Hg] mm[Hg] Method: Stand PULSE 2019-02-24 18:09:43 66 /min /min RESP RATE 2019-02-24 18:09:43 16 /min /min TEMP 2019-02-24 18:09:43 98.9 [degF] Procedures This patient has no known procedures. Results This patient has no known results.
--- OUTSIDE RECORDS SUMMARY | 2019-03-07 00:07 | XMS REPORT ---
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 [...] Pain Mgmt Active 2018-02 Caty pain 04-11 [place] 12:25: [id number] Cardio edema Cardiovasc Active 2018-02 Caty ular 04-11 [place] 12:25: [id number] Respiratory lung sounds Respirator Active 2018-02 Caty deficit y 04-11 [place] 12:25: [id number] 00 Respiratory dyspnea Respirator Active 2018-02 Caty present y 04-11 [place] 12:25: [id number] 00 Endo/Hansel diabetic Endo/Hansel Resolve 2018-022019-02-22 Caty foot care d 04-11 15:05:00 [place] 12:25: [id number] 00 Sensory impaired Sensory Active 2018-02 Caty hearing 04-11 [place] 12:25: [id number] 00 Integument skin Integument Active 2018-02 Caty integrity 04-11 [place] risk 12:25: [id number] 00 Nutrition nutritional Nutrition Active 2018-02 Caty restriction 04-11 [place] s 12:25: [id number] 00 Elimination urinary Eliminatio Resolve 2018-022019-03-04 Caty incontinenc n d 04-11 14:15:00 [place] 12:25: [id number] 00 Elimination bowel Eliminatio Resolve 2018-022019-03-04 Caty incontinenc n d 04-11 14:15:00 [place] 12:25: [id number] 00 Neuro confusion Neuro/Emot Active 2018-02 Caty present ion 04-11 [place] 12:25: [id number] 00 Neuro impaired Neuro/Emot Active 2018-02 Caty decision-ma ion 04-11 [place] winnie 12:25: [id number] 00 Neuro memory Neuro/Emot Active 2018-02 Caty deficit ion - [place] needing 12:25: [id number] supervision 00 Activity ADL Activity Active 2018-02 Caty assistance 04-11 [place] required 12:25: [id number] 00 Activity self-care Activity Active 2018-02 Caty deficit 04-11 [place] 12:25: [id number] 00 Safety structural Safety Active 2018-02 Caty barriers 04-11 [place] present 12:25: [id number] 00 Safety cannot be Safety Active 2018-02 Caty left alone 04-11 [place] 12:25: [id number] 00 Safety fall risk Safety Active 2018-02 Caty factor 04-11 [place] present 12:25: [id number] 00 Safety risk for Safety Active 2018-02 Caty hospitaliza 04-11 [place] tion 12:25: [id number] 00 Medication oral med Meds Active 2018-02 Caty assistance 04-11 [place] required 12:25: [id number] Musculoskel transfer Musculoske Resolve 2018-022019-02-21 Caty etal assistance letal d 20 16:00:00 [place] required 12:25: [id number] 00 Musculoskel requires Musculoske Resolve 2018-2019-02-21 Caty etal human letal d -20 16:00:00 [place] assist to 12:25: [id number] leave home 00 Cardio hypertensio Cardiovasc Active [...] left Safety Active 2018-02 Tina alone for 2 Lionel only short 14:30: [id number] periods 00 Allergies, Adverse Reactions, Alerts Allergy Name Allergy Status Severity Reaction(s) Onset Inactive Treating Comments Type Date Date Clinician amoxicillin Unknown Active Unknown Reaction Mesha Unknown 5-10 (Ni) Altagracia [id number] clavulanic Unknown Active Unknown Reaction Mesha acid Unknown 5-10 (Ni) Altagracia [id number] hydroxyzine Unknown Active Unknown Reaction Mesha Unknown 5-10 (Ni) Altagracia [id number] IVP dye Unknown Active Unknown Reaction Mesha Unknown 5-10 (Ni) Altagracia [id number] oxycodone Unknown Active Unknown Reaction Mesha Unknown 5-10 (Ni) Altagracia [id number] Medications Ordered Filled Start Stop Current Ordering Indication Dosage Frequency Signature Comments Components Medication Medication Date Date Medication? Clinician (SIG) Name Name cyanocobala cyanocobala 2018-02- Yes Blanket Unknown Unknown min (vit min (vit 04-11 Kanu SIMMS -12) 2,500 ) 2,500 mcg mcg sublingual sublingual tablet tablet folic acid folic acid 2018-02- Yes Blanket Unknown Unknown 1 mg tablet 1 mg tablet 04-11 Kanu SIMMS lisinopril lisinopril No Blanket 2 Unknown 10 10 Kanu SIMMS tablets mg-hydrochl mg-hydrochl orothiazide orothiazide 12.5 mg 12.5 mg tablet tablet metHOTREXat metHOTREXat No Blanket 10 mg Unknown e sodium e sodium Kanu SIMMS 2.5 mg 2.5 mg tablet tablet metoprolol metoprolol No Blanket Unknown Unknown tartrate 50 tartrate 50 Kanu SIMMS mg tablet mg tablet pantoprazol pantoprazol No Blanket Unknown Unknown e 40 mg e 40 mg Kanu SIMMS tablet,kathe tablet,kathe yed release yed release rOPINIRole rOPINIRole 2018-02 Yes Blanket Unknown Unknown 2 mg tablet 2 mg tablet 04-11 Kanu SIMMS Xarelto 20 Xarelto 20 No Blanket Unknown Unknown mg tablet mg tablet Kanu SIMMS atorvastati atorvastati No Blanket Unknown Unknown n 40 mg n 40 mg Kanu SIMMS tablet tablet losartan 50 losartan 50 2018-02 Yes Blanket Unknown Unknown mg tablet mg tablet 04-11 Kanu SIMMS denosumab denosumab No Blanket Unknown Unknown 60 mg/mL 60 mg/mL Kanu SIMMS subcutaneou subcutaneou s syringe s syringe zolpidem 5 zolpidem 5 No Blanket Unknown Unknown mg tablet mg tablet Kanu SIMMS cyanocobala cyanocobala No Blanket Unknown Unknown min (vit min (vit Kanu SIMMS B-12) 1,000 B-12) 1,000 mcg tablet mcg tablet amLODIPine amLODIPine No Blanket Unknown Unknown 5 mg tablet 5 mg tablet Kanu SIMMS benzonatate benzonatate No Blanket Unknown Unknown 100 mg 100 mg Kanu SIMMS capsule capsule furosemide furosemide 2018-02 Yes Brand Unknown Unknown 20 mg 20 mg 2- MDDonaldo tablet tablet cephALEXin cephALEXin No Blanket Unknown Unknown 250 mg 250 mg Kanu SIMMS capsule capsule FLUoxetine FLUoxetine No Blanket Unknown Unknown 10 mg 10 mg Kanu SIMMS capsule capsule amiodarone amiodarone 2018-02 Yes Blanket Unknown Unknown 200 mg 200 mg 2- Kanu SIMMS tablet tablet magnesium magnesium 2018-02 Yes Blanket Unknown Unknown oxide 400 oxide 400 - Kanu SIMMS mg (241.3 mg (241.3 mg mg magnesium) magnesium) tablet tablet Protonix 40 Protonix 40 2018-02 Yes Blanket Unknown Unknown mg mg 2- Kanu SIMMS tablet,kathe tablet,kathe yed release yed release Vitamin D3 Vitamin D3 2018-02 Yes Blanket Unknown Unknown 1,000 unit 1,000 unit 04-11 Kanu SIMMS capsule capsule ferrous ferrous 2018-02 Yes Blanket Unknown Unknown sulfate 325 sulfate 325 2- Kanu SIMMS mg (65 mg mg (65 mg iron) iron) tablet tablet cholecalcif cholecalcif 2018-02 Yes Blanket Unknown Unknown dario dario Kanu SIMMS (vitamin (vitamin D3) 5,000 D3) 5,000 unit tablet unit tablet pantoprazol pantoprazol 2018-02 Yes Blanket Unknown Unknown e 40 mg e 40 mg - Kanu SIMMS tablet,kathe tablet,kathe yed release yed release Ambien 5 mg Ambien 5 mg 2018-02- Yes Blanket Unknown Unknown tablet tablet - Kanu SIMMS metoprolol metoprolol 2018-02 Yes Blanket Unknown Unknown 04-18 Kanu SIMMS Tylenol 325 Tylenol 325 2018-02 Yes Blanket Unknown Unknown mg tablet mg tablet 04-18 Kanu SIMMS Multiple Multiple Yes Blanket Unknown Unknown Vitamin, Vitamin, 02-22 Kanu SIMMS Womens Womens tablet tablet Vitamin C Vitamin C Yes Blanket Unknown Unknown 500 mg 500 mg 02-22 Kanu SIMMS chewable chewable tablet tablet Vital Signs Vital Name Observation Time Observation Value Comments SYSTOLIC mm[Hg] 2019-03-05 18:09:52 128 mm[Hg] mm[Hg] Method: Sit SYSTOLIC mm[Hg] 2019-02-08 18:09:27 136 mm[Hg] mm[Hg] Method: Stand DIASTOLIC mm[Hg] 2019-03-05 18:09:52 78 mm[Hg] mm[Hg] Method: Sit DIASTOLIC mm[Hg] 2019-02-08 18:09:27 76 mm[Hg] mm[Hg] Method: Stand PULSE 2019-03-05 18:09:52 66 /min /min RESP RATE 2019-03-05 18:09:52 16 /min /min TEMP 2019-03-05 18:09:52 99.1 [degF] Procedures This patient has no known procedures. Results This patient has no known results.
--- OUTSIDE RECORDS SUMMARY | 2019-03-07 00:07 | XMS REPORT ---
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 [...] Pain Mgmt Active 2018-02 [place]y pain 04-11 [place] 12:25: [id number] 00 Cardio edema Cardiovasc Active 2018-02 [place] ular 04-11 [place] 12:25: [id number] 00 Respiratory lung sounds Respirator Active 2018-02 Cat[place] deficit y 04-11 [place] 12:25: [id number] 00 Respiratory dyspnea Respirator Active 2018-02 Caty present y 04-11 [place] 12:25: [id number] 00 Endo/Hansel diabetic Endo/Hansel Active 2018-02 Caty foot care 04-11 [place] 12:25: [id number] 00 Sensory impaired Sensory Active 2018-02 Caty hearing 04-11 [place] 12:25: [id number] 00 Integument skin Integument Active 2018-02 Caty integrity 04-11 [place] risk 12:25: [id number] Nutrition nutritional Nutrition Active 2018-02 [place] restriction 04-11 [place] s 12:25: [id number] 00 Elimination urinary Eliminatio Active 2018-02 Caty incontinenc n 04-11 [place] e 12:25: [id number] 00 Elimination bowel Eliminatio Active 2018-02 Caty incontinenc n 04-11 [place] e 12:25: [id number] 00 Neuro confusion Neuro/Emot Active 2018-02 Caty present ion 04-11 [place] 12:25: [id number] 00 Neuro impaired Neuro/Emot Active 2018-02 Caty decision-ma ion 04-11 [place] winnie 12:25: [id number] 00 Neuro memory Neuro/Emot Active 2018-02 [place] deficit ion 04-11 [place] needing 12:25: [id number] supervision 00 Activity ADL Activity Active 2018-02 Caty assistance 04-11 [place] required 12:25: [id number] 00 Activity self-care Activity Active 2018-02 Caty deficit 04-11 [place] 12:25: [id number] 00 Safety structural Safety Active 2018-02 Caty barriers 04-11 [place] present 12:25: [id number] 00 Safety cannot be Safety Active 2018-02 Caty left alone 04-11 [place] 12:25: [id number] 00 Safety fall risk Safety Active 2018-02 Caty factor 04-11 [place] present 12:25: [id number] 00 Safety risk for Safety Active 2018-02 Caty hospitaliza 04-11 [place] tion 12:25: [id number] 00 Medication oral med Meds Active 2018-02 Caty assistance 04-11 [place] required 12:25: [id number] Musculoskel transfer Musculoske Resolve 2018-022019-02-21 Caty etal assistance letal d 04-11 16:00:00 [place] required 12:25: [id number] 00 Musculoskel requires Musculoske Resolve 2018-022019-02-21 Caty etal human letal d 04-11 16:00:00 [place] assist to 12:25: [id number] leave home 00 Cardio hypertensio Cardiovasc Active 2018-02 Lizabeth n ular 2-23 Carrier RN 16:40: 00 Cardio knowledge/s Cardiovasc Active 2018-02 Lizabeth purdy ular 2-23 Carrier RN deficit: pt 16:40: 00 Cardio knowledge/s Cardiovasc Active 2018-02 Lizabteh purdy ular 2-23 Carrier RN deficit: cg [...] alone for 2-30 Lionel only short 14:30: [id number] periods 00 Allergies, Adverse Reactions, Alerts Allergy Name Allergy Status Severity Reaction(s) Onset Inactive Treating Comments Type Date Date Clinician amoxicillin Unknown Active Unknown Reaction Mesha Unknown 5-10 (Ni) Altagracia [id number] clavulanic Unknown Active Unknown Reaction Mesha acid Unknown 5-10 (Ni) Altagracia [id number] hydroxyzine Unknown Active Unknown Reaction Mesha Unknown 5-10 (Ni) Altagracia [id number] IVP dye Unknown Active Unknown Reaction Mesha Unknown 5-10 (Ni) Altagracia [id number] oxycodone Unknown Active Unknown Reaction Mesha Unknown 5-10 (Ni) Altagracia [id number] Medications Ordered Filled Start Stop Current Ordering Indication Dosage Frequency Signature Comments Components Medication Medication Date Date Medication? Clinician (SIG) Name Name cyanocobala cyanocobala 2018-02- Yes [place] Unknown Unknown min (vit min (vit 04-11 Kan[facility] SIMMS ) 2,500 ) 2,500 mcg mcg sublingual sublingual tablet tablet folic acid folic acid 2018-02- Yes [place] Unknown Unknown 1 mg tablet 1 mg tablet 04-11 [facility] SIMMS lisinopril lisinopril No [place] 2 Unknown 10 10 [facility] SIMMS tablets mg-hydrochl mg-hydrochl orothiazide orothiazide 12.5 mg 12.5 mg tablet tablet metHOTREXat metHOTREXat No [place] 10 mg Unknown e sodium e sodium [facility] SIMMS 2.5 mg 2.5 mg tablet tablet metoprolol metoprolol No [place] Unknown Unknown tartrate 50 tartrate 50 [facility] SIMMS mg tablet mg tablet pantoprazol pantoprazol No [place] Unknown Unknown e 40 mg e 40 mg [facility] SIMMS tablet,kathe tablet,kathe yed release yed release rOPINIRole rOPINIRole 2018-02 Yes [place] Unknown Unknown 2 mg tablet 2 mg tablet 04-11 [facility] SIMMS Xarelto 20 Xarelto 20 No [place] Unknown Unknown mg tablet mg tablet [facility]MS atorvastati atorvastati No [place] Unknown Unknown n 40 mg n 40 mg [facility] SIMMS tablet tablet losartan 50 losartan 50 2018-02 Yes [place] Unknown Unknown mg tablet mg tablet 04-11 [facility] SIMMS denosumab denosumab No [place] Unknown Unknown 60 mg/mL 60 mg/mL [facility] SIMMS subcutaneou subcutaneou s syringe s syringe zolpidem 5 zolpidem 5 No [place] Unknown Unknown mg tablet mg tablet [facility]MS cyanocobala cyanocobala No [place] Unknown Unknown min (vit min (vit [facility] B-12) 1,000 B-12) 1,000 mcg tablet mcg tablet amLODIPine amLODIPine No [place] Unknown Unknown 5 mg tablet 5 mg tablet [facility] SIMMS benzonatate benzonatate No [place] Unknown Unknown 100 mg 100 mg [facility] capsule capsule furosemide furosemide 2018-02 Yes Brand Unknown Unknown 20 mg 20 mg 2- ,Donaldo tablet tablet cephALEXin cephALEXin No [place] Unknown Unknown 250 mg 250 mg [facility] SIMMS capsule capsule FLUoxetine FLUoxetine No [place] Unknown Unknown 10 mg 10 mg [facility] SIMMS capsule capsule amiodarone amiodarone 2018-02 Yes [place] Unknown Unknown 200 mg 200 mg 04-11 [facility] SIMMS tablet tablet magnesium magnesium 2018-02 Yes [place] Unknown Unknown oxide 400 oxide 400 04-11 [facility]MS mg (241.3 mg (241.3 mg mg magnesium) magnesium) tablet tablet Protonix 40 Protonix 40 2018-02 Yes [place] Unknown Unknown mg mg 04-11 [facility] SIMMS tablet,kathe tablet,kathe yed release yed release Vitamin D3 Vitamin D3 2018-02 Yes [place] Unknown Unknown 1,000 unit 1,000 unit 04-11 [facility] SIMMS capsule capsule ferrous ferrous 2018-02 Yes [place] Unknown Unknown sulfate 325 sulfate 325 04-11 [facility] mg (65 mg mg (65 mg iron) iron) tablet tablet cholecalcif cholecalcif 2018-02 Yes [place] Unknown Unknown dario dario [facility] SIMMS (vitamin (vitamin D3) 5,000 D3) 5,000 unit tablet unit tablet pantoprazol pantoprazol 2018-02 Yes [place] Unknown Unknown e 40 mg e 40 mg [facility] SIMMS tablet,kathe tablet,kathe yed release yed release Ambien 5 mg Ambien 5 mg 2018-02- Yes [place] Unknown Unknown tablet tablet 02-18 [facility]MS metoprolol metoprolol 2018-02 Yes [place] Unknown Unknown 04-18 [facility]MS Tylenol 325 Tylenol 325 2018-02 Yes [place] Unknown Unknown mg tablet mg tablet 04-18 [facility] SIMMS Vital Signs Vital Name Observation Time Observation Value Comments SYSTOLIC mm[Hg] 2019-02-21 18:09:40 128 mm[Hg] mm[Hg] Method: Sit SYSTOLIC mm[Hg] 2019-02-08 18:09:27 136 mm[Hg] mm[Hg] Method: Stand DIASTOLIC mm[Hg] 2019-02-21 18:09:40 64 mm[Hg] mm[Hg] Method: Sit DIASTOLIC mm[Hg] 2019-02-08 18:09:27 76 mm[Hg] mm[Hg] Method: Stand PULSE 2019-02-21 18:09:40 64 /min /min RESP RATE 2019-02-21 18:09:40 18 /min /min TEMP 2019-02-21 18:09:40 97.3 [degF] Procedures This patient has no known procedures. Results This patient has no known results.
--- OUTSIDE RECORDS SUMMARY | 2019-03-07 00:07 | XMS REPORT ---
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 [...] Pain Mgmt Active 2018-02 Caty pain 04-11 [place] 12:25: [id number] 00 Cardio edema Cardiovasc Active 2018-02 Caty ular 04-11 [place] 12:25: [id number] 00 Respiratory lung sounds Respirator Active 2018-02 Caty deficit y 04-11 [place] 12:25: [id number] 00 Respiratory dyspnea Respirator Active 2018-02 Caty present y 04-11 [place] 12:25: [id number] 00 Endo/Hansel diabetic Endo/Hansel Resolve 2018-022019-02-22 Caty foot care d 04-11 15:05:00 [place] 12:25: [id number] 00 Sensory impaired Sensory Active 2018-02 Caty hearing 04-11 [place] 12:25: [id number] 00 Integument skin Integument Active 2018-02 Caty integrity 04-11 [place] risk 12:25: [id number] 00 Nutrition nutritional Nutrition Active 2018-02 Caty restriction 04-11 [place] s 12:25: [id number] 00 Elimination urinary Eliminatio Active 2018-02 Caty incontinenc n 04-11 [place] e 12:25: [id number] 00 Elimination bowel Eliminatio Active 2018-02 Caty incontinenc n 04-11 [place] e 12:25: [id number] 00 Neuro confusion Neuro/Emot Active 2018-02 Caty present ion 04-11 [place] 12:25: [id number] 00 Neuro impaired Neuro/Emot Active 2018-02 Caty decision-ma ion 04-11 [place] winnie 12:25: [id number] 00 Neuro memory Neuro/Emot Active 2018-02 Caty deficit ion 04-11 [place] needing 12:25: [id number] supervision 00 Activity ADL Activity Active 2018-02 Caty assistance 04-11 [place] required 12:25: [id number] 00 Activity self-care Activity Active 2018-02 Caty deficit 04-11 [place] 12:25: [id number] 00 Safety structural Safety Active 2018-02 Caty barriers 04-11 [place] present 12:25: [id number] 00 Safety cannot be Safety Active 2018-02 Caty left alone 04-11 [place] 12:25: [id number] 00 Safety fall risk Safety Active 2018-02 Caty factor 04-11 [place] present 12:25: [id number] 00 Safety risk for Safety Active 2018-02 Caty hospitaliza 04-11 [place] tion 12:25: [id number] 00 Medication oral med Meds Active 2018-02 Caty assistance 04-11 [place] required 12:25: [id number] 00 Musculoskel transfer Musculoske Resolve 2018-022019-02-21 Caty etal assistance letal d 2-20 16:00:00 [place] required 12:25: [id number] 00 Musculoskel requires Musculoske Resolve 2018-022019-02-21 Caty etal human letal d -20 16:00:00 [place] assist to 12:25: [id number] leave home 00 Cardio hypertensio Cardiovasc Active [...] alone for 2- Lionel only short 14:30: [id number] periods 00 Allergies, Adverse Reactions, Alerts Allergy Name Allergy Status Severity Reaction(s) Onset Inactive Treating Comments Type Date Date Clinician amoxicillin Unknown Active Unknown Reaction Mesha Unknown 5-10 (Ni) Altagracia [id number] clavulanic Unknown Active Unknown Reaction Mesha acid Unknown 5-10 (Ni) Altagracia [id number] hydroxyzine Unknown Active Unknown Reaction Mesha Unknown 5-10 (Ni) Altagracia [id number] IVP dye Unknown Active Unknown Reaction Mesha Unknown 5-10 (Ni) Altagracia [id number] oxycodone Unknown Active Unknown Reaction Mesha Unknown 5-10 (Ni) Altagracia [id number] Medications Ordered Filled Start Stop Current Ordering Indication Dosage Frequency Signature Comments Components Medication Medication Date Date Medication? Clinician (SIG) Name Name rodolfo mcmullenbala 2018-02- Yes [place] Unknown Unknown min (vit min (vit 04-11 [facility] SIMMS B-12) 2,500 B-12) 2,500 mcg mcg sublingual sublingual tablet tablet folic acid folic acid 2018-02- Yes [place] Unknown Unknown 1 mg tablet 1 mg tablet 04-11 [facility] SIMMS lisinopril lisinopril No [place] 2 Unknown 10 10 [facility] SIMMS tablets mg-hydrochl mg-hydrochl orothiazide orothiazide 12.5 mg 12.5 mg tablet tablet metHOTREXat metHOTREXat No [place] 10 mg Unknown e sodium e sodium [facility] SIMMS 2.5 mg 2.5 mg tablet tablet metoprolol metoprolol No [place] Unknown Unknown tartrate 50 tartrate 50 [facility] SIMMS mg tablet mg tablet pantoprazol pantoprazol No [place] Unknown Unknown e 40 mg e 40 mg [facility] SIMMS tablet,kathe tablet,kathe yed release yed release rOPINIRole rOPINIRole 2018-02 Yes [place] Unknown Unknown 2 mg tablet 2 mg tablet 04-11 Kan[facility] SIMMS Xarelto 20 Xarelto 20 No [place] Unknown Unknown mg tablet mg tablet [facility] SIMMS atorvastati atorvastati No [place] Unknown Unknown n 40 mg n 40 mg [facility] SIMMS tablet tablet losartan 50 losartan 50 2018-02 Yes [place] Unknown Unknown mg tablet mg tablet 04-11 [facility] SIMMS denosumab denosumab No [place] Unknown Unknown 60 mg/mL 60 mg/mL [facility] SIMMS subcutaneou subcutaneou s syringe s syringe zolpidem 5 zolpidem 5 No [place] Unknown Unknown mg tablet mg tablet [facility] SIMMS cyanocobala cyanocobala No [place] Unknown Unknown min (vit min (vit [facility] SIMMS B-12) 1,000 B-12) 1,000 mcg tablet mcg tablet amLODIPine amLODIPine No [place] Unknown Unknown 5 mg tablet 5 mg tablet [facility] SIMMS benzonatate benzonatate No [place] Unknown Unknown 100 mg 100 mg [facility]MS capsule capsule furosemide furosemide 2018-02 Yes Brand Unknown Unknown 20 mg 20 mg 2- MDDonaldo tablet tablet cephALEXin cephALEXin No [place] Unknown Unknown 250 mg 250 mg [facility] SIMMS capsule capsule FLUoxetine FLUoxetine No [place] Unknown Unknown 10 mg 10 mg [facility] capsule capsule amiodarone amiodarone 2018-02 Yes [place] Unknown Unknown 200 mg 200 mg 04-11 [facility] SIMMS tablet tablet magnesium magnesium 2018-02 Yes [place] Unknown Unknown oxide 400 oxide 400 04-11 [facility] SIMMS mg (241.3 mg (241.3 mg mg magnesium) magnesium) tablet tablet Protonix 40 Protonix 40 2018-02 Yes [place] Unknown Unknown mg mg 04-11 [facility] SIMMS tablet,kathe tablet,kathe yed release yed release Vitamin D3 Vitamin D3 2018-02 Yes [place] Unknown Unknown 1,000 unit 1,000 unit 04-11 [facility] SIMMS capsule capsule ferrous ferrous 2018-02 Yes [place] Unknown Unknown sulfate 325 sulfate 325 04-11 [facility] SIMMS mg (65 mg mg (65 mg iron) iron) tablet tablet cholecalcif cholecalcif 2018-02 Yes [place] Unknown Unknown dario dario [facility] SIMMS (vitamin (vitamin D3) 5,000 D3) 5,000 unit tablet unit tablet pantoprazol pantoprazol 2018-02 Yes [place] Unknown Unknown e 40 mg e 40 mg [facility] SIMMS tablet,kathe tablet,kathe yed release yed release Ambien 5 mg Ambien 5 mg 2018-02 Yes [place] Unknown Unknown tablet tablet 02-18 [facility] SIMMS metoprolol metoprolol 2018-02 Yes [place] Unknown Unknown 04-18 [facility] SIMMS Tylenol 325 Tylenol 325 2018-02 Yes [place] Unknown Unknown mg tablet mg tablet 04-18 [facility] SIMMS Multiple Multiple Yes [place] Unknown Unknown Vitamin, Vitamin, 02-22 Kan[facility] SIMMS Womens Womens tablet tablet Vitamin C Vitamin C Yes [place] Unknown Unknown 500 mg 500 mg 02-22 [...]
--- OUTSIDE RECORDS SUMMARY | 2019-03-07 00:07 | XMS REPORT ---
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 [...] Pain Mgmt Active 2018-02 Caty pain 04-11 [place] 12:25: [id number] 00 Cardio edema Cardiovasc Active 2018-02 Caty ular 04-11 [place] 12:25: [id number] 00 Respiratory lung sounds Respirator Active 2018-02 Caty deficit y 04-11 [place] 12:25: [id number] 00 Respiratory dyspnea Respirator Active 2018-02 Caty present y 04-11 [place] 12:25: [id number] 00 Endo/Hansel diabetic Endo/Hansel Resolve 2018-022019-02-22 Caty foot care d 04-11 15:05:00 [place] 12:25: [id number] 00 Sensory impaired Sensory Active 2018-02 Caty hearing 04-11 [place] 12:25: [id number] 00 Integument skin Integument Active 2018-02 Caty integrity 04-11 [place] risk 12:25: [id number] 00 Nutrition nutritional Nutrition Active 2018-02 Caty restriction 04-11 [place] s 12:25: [id number] 00 Elimination urinary Eliminatio Active 2018-02 Caty incontinenc n 04-11 [place] e 12:25: [id number] 00 Elimination bowel Eliminatio Active 2018-02 Caty incontinenc n 04-11 [place] e 12:25: [id number] 00 Neuro confusion Neuro/Emot Active 2018-02 Caty present ion 04-11 [place] 12:25: [id number] 00 Neuro impaired Neuro/Emot Active 2018-02 Caty decision-ma ion 04-11 [place] winnie 12:25: [id number] 00 Neuro memory Neuro/Emot Active 2018-02 Caty deficit ion 04-11 [place] needing 12:25: [id number] supervision 00 Activity ADL Activity Active 2018-02 Caty assistance 04-11 [place] required 12:25: [id number] 00 Activity self-care Activity Active 2018-02 Caty deficit 04-11 [place] 12:25: [id number] 00 Safety structural Safety Active 2018-02 Caty barriers 04-11 [place] present 12:25: [id number] 00 Safety cannot be Safety Active 2018-02 Caty left alone 04-11 [place] 12:25: [id number] 00 Safety fall risk Safety Active 2018-02 Caty factor 04-11 [place] present 12:25: [id number] Safety risk for Safety Active 2018-02 Caty hospitaliza 04-11 [place] tion 12:25: [id number] 00 Medication oral med Meds Active 2018-02 Caty assistance 04-11 [place] required 12:25: [id number] 00 Musculoskel transfer Musculoske Resolve 2018-022019-02-21 Caty etal assistance letal d 2-20 16:00:00 [place] required 12:25: [id number] 00 Musculoskel requires Musculoske Resolve 2018-022019-02-21 Caty etal human letal d -20 16:00:00 [place] assist to 12:25: [id number] leave home 00 Cardio hypertensio Cardiovasc Active [...] alone for 2- Lionel only short 14:30: [id number] periods 00 Allergies, Adverse Reactions, Alerts Allergy Name Allergy Status Severity Reaction(s) Onset Inactive Treating Comments Type Date Date Clinician amoxicillin Unknown Active Unknown Reaction Mesha Unknown 5-10 (Ni) Altagracia [id number] clavulanic Unknown Active Unknown Reaction Mesha acid Unknown 5-10 (Ni) Altagracia [id number] hydroxyzine Unknown Active Unknown Reaction Mesha Unknown 5-10 (Ni) Altagracia [id number] IVP dye Unknown Active Unknown Reaction Mesha Unknown 5-10 (Ni) Altagracia [id number] oxycodone Unknown Active Unknown Reaction Mesha Unknown 5-10 (Ni) Altagracia [id number] Medications Ordered Filled Start Stop Current Ordering Indication Dosage Frequency Signature Comments Components Medication Medication Date Date Medication? Clinician (SIG) Name Name rodolfo mcmullenbala 2018-02- Yes [place] Unknown Unknown min (vit min (vit 04-11 [facility] SIMMS B-12) 2,500 B-12) 2,500 mcg mcg sublingual sublingual tablet tablet folic acid folic acid 2018-02- Yes [place] Unknown Unknown 1 mg tablet 1 mg tablet 04-11 [facility] SIMMS lisinopril lisinopril No [place] 2 Unknown 10 10 [facility] SIMMS tablets mg-hydrochl mg-hydrochl orothiazide orothiazide 12.5 mg 12.5 mg tablet tablet metHOTREXat metHOTREXat No [place] 10 mg Unknown e sodium e sodium [facility] SIMMS 2.5 mg 2.5 mg tablet tablet metoprolol metoprolol No [place] Unknown Unknown tartrate 50 tartrate 50 [facility] SIMMS mg tablet mg tablet pantoprazol pantoprazol No [place] Unknown Unknown e 40 mg e 40 mg [facility] SIMMS tablet,kathe tablet,kathe yed release yed release rOPINIRole rOPINIRole 2018-02 Yes [place] Unknown Unknown 2 mg tablet 2 mg tablet 04-11 [facility]MS Xarelto 20 Xarelto 20 No [place] Unknown Unknown mg tablet mg tablet [facility] atorvastati atorvastati No [place] Unknown Unknown n 40 mg n 40 mg [facility]MS tablet tablet losartan 50 losartan 50 2018-02 Yes [place] Unknown Unknown mg tablet mg tablet 04-11 [facility]MS denosumab denosumab No [place] Unknown Unknown 60 mg/mL 60 mg/mL [facility] SIMMS subcutaneou subcutaneou s syringe s syringe zolpidem 5 zolpidem 5 No [place] Unknown Unknown mg tablet mg tablet [facility] cyanocobala cyanocobala No [place] Unknown Unknown min (vit min (vit [facility] SIMMS B-12) 1,000 B-12) 1,000 mcg tablet mcg tablet amLODIPine amLODIPine No [place] Unknown Unknown 5 mg tablet 5 mg tablet [facility] benzonatate benzonatate No [place] Unknown Unknown 100 mg 100 mg [facility]MS capsule capsule furosemide furosemide 2018-02 Yes Brand Unknown Unknown 20 mg 20 mg 2- MDDonaldo tablet tablet cephALEXin cephALEXin No [place] Unknown Unknown 250 mg 250 mg [facility] SIM[facility] capsule capsule FLUoxetine FLUoxetine No [place] Unknown Unknown 10 mg 10 mg [facility] capsule capsule amiodarone amiodarone 2018-02 Yes [place] Unknown Unknown 200 mg 200 mg 04-11 [facility] SIMMS tablet tablet magnesium magnesium 2018-02 Yes [place] Unknown Unknown oxide 400 oxide 400 04-11 [facility] mg (241.3 mg (241.3 mg mg magnesium) magnesium) tablet tablet Protonix 40 Protonix 40 2018-02 Yes [place] Unknown Unknown mg mg 04-11 [facility] tablet,kathe tablet,kathe yed release yed release Vitamin D3 Vitamin D3 2018-02 Yes [place] Unknown Unknown 1,000 unit 1,000 unit 04-11 [facility] capsule capsule ferrous ferrous 2018-02 Yes [place] Unknown Unknown sulfate 325 sulfate 325 04-11 [facility] mg (65 mg mg (65 mg iron) iron) tablet tablet cholecalcif cholecalcif 2018-02 Yes [place] Unknown Unknown dario dario [facility] SIMMS (vitamin (vitamin D3) 5,000 D3) 5,000 unit tablet unit tablet pantoprazol pantoprazol 2018-02 Yes [place] Unknown Unknown e 40 mg e 40 mg [facility]MS tablet,kathe tablet,kathe yed release yed release Ambien 5 mg Ambien 5 mg 2018-02 Yes [place] Unknown Unknown tablet tablet 02-18 [facility] metoprolol metoprolol 2018-02 Yes [place] Unknown Unknown 04-18 [facility] Tylenol 325 Tylenol 325 2018-02 Yes [place] Unknown Unknown mg tablet mg tablet 04-18 [facility] Multiple Multiple Yes [place] Unknown Unknown Vitamin, Vitamin, 02-22 [facility] SIMSM Womens Womens tablet tablet Vitamin C Vitamin C Yes [place] Unknown Unknown 500 mg 500 mg 02-22 [...]
--- OUTSIDE RECORDS SUMMARY | 2019-03-07 00:08 | XMS REPORT ---
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, acetabulum, subsequent subsequent encounter encounter for for fracture fracture with with routine routine healing healing Pain frequent Pain Mgmt Active 2018-02 Caty pain 04-11 [place] 12:25: [id number] Cardio edema Cardiovasc Active 2018-02 Caty ular 04-11 [place] 12:25: [id number] 00 Respiratory lung sounds Respirator Active 2018-02 Caty deficit y 04-11 [place] 12:25: [id number] 00 Respiratory dyspnea Respirator Active 2018-02 Caty present y 04-11 [place] 12:25: [id number] 00 Endo/Hansel diabetic Endo/Hansel Active 2018-02 Caty foot care 04-11 [place] 12:25: [id number] 00 Sensory impaired Sensory Active 2018-02 Caty hearing 04-11 [place] 12:25: [id number] 00 Integument skin Integument Active 2018-02 Caty integrity 04-11 [place] risk 12:25: [id number] Nutrition nutritional Nutrition Active 2018-02 Caty restriction 04-11 [place] s 12:25: [id number] Elimination urinary Eliminatio Active 2018-02 Caty incontinenc n 04-11 [place] e 12:25: [id number] 00 Elimination bowel Eliminatio Active 2018-02 Caty incontinenc n 04-11 [place] e 12:25: [id number] 00 Neuro confusion Neuro/Emot Active 2018-02 Caty present ion 04-11 [place] 12:25: [id number] 00 Neuro impaired Neuro/Emot Active 2018-02 [place] decision-ma ion 04-11 [place] winnie 12:25: [id number] 00 Neuro memory Neuro/Emot Active 2018-02 Caty deficit ion 04-11 [place] needing 12:25: [id number] supervision 00 Activity ADL Activity Active 2018-02 Caty assistance 04-11 [place] required 12:25: [id number] Activity self-care Activity Active 2018-02 Caty deficit 04-11 [place] 12:25: [id number] 00 Safety structural Safety Active 2018-02 Caty barriers 04-11 [place] present 12:25: [id number] Safety cannot be Safety Active 2018-02 Caty left alone 04-11 [place] 12:25: [id number] 00 Safety fall risk Safety Active 2018-02 Caty factor 04-11 [place] present 12:25: [id number] 00 Safety risk for Safety Active 2018-02 Caty hospitaliza 04-11 [place] tion 12:25: [id number] 00 Medication oral med Meds Active 2018-02 Caty assistance 04-11 [place] required 12:25: [id number] 00 Musculoskel transfer Musculoske Active 2018-02 Caty etal assistance letal 04-11 [place] required 12:25: [id number] Musculoskel requires Musculoske Active 2018-02 Caty etal human letal 04-11 [place] assist to 12:25: [id number] leave home 00 Allergies, Adverse Reactions, Alerts Allergy Name Allergy Status Severity Reaction(s) Onset Inactive Treating Comments Type Date Date Clinician amoxicillin Unknown Active Unknown Reaction Mesha Unknown 5-10 (Ni) Altagracia [id number] clavulanic Unknown Active Unknown Reaction Mesha acid Unknown 5-10 (Ni) Altagracia [id number] hydroxyzine Unknown Active Unknown Reaction Mesha Unknown 5-10 (Ni) Altagracia [id number] IVP dye Unknown Active Unknown Reaction Mesha Unknown 5-10 (Ni) Altagracia [id number] oxycodone Unknown Active Unknown Reaction Mesha Unknown 5-10 (Ni) Altagracia [id number] Medications Ordered Filled Start Stop Current Ordering Indication Dosage Frequency Signature Comments Components Medication Medication Date Date Medication? Clinician (SIG) Name Name cyanocobala cyanocobala 2018-02 Yes [place] Unknown Unknown min (vit min (emmanuel 2-20 Kanu SIMMS B-12) 2,500 B-12) 2,500 mcg mcg sublingual sublingual tablet tablet folic acid folic acid 2018-02 Yes [place] Unknown Unknown 1 mg tablet 1 mg tablet 2-20 [place] SIMMS lisinopril lisinopril No [place] 2 Unknown 10 10 [place] SIMMS tablets mg-hydrochl mg-hydrochl orothiazide orothiazide 12.5 mg 12.5 mg tablet tablet metHOTREXat metHOTREXat No [place] 10 mg Unknown e sodium e sodium Kanu SIMMS 2.5 mg 2.5 mg tablet tablet metoprolol metoprolol No [place] Unknown Unknown tartrate 50 tartrate 50 Kanu SIMMS mg tablet mg tablet pantoprazol pantoprazol No [place] Unknown Unknown e 40 mg e 40 mg Kanu SIMMS tablet,kathe tablet,kathe yed release yed release rOPINIRole rOPINIRole 2018-02 Yes [place] Unknown Unknown 2 mg tablet 2 mg tablet 2-20 [place] SIMMS Xarelto 20 Xarelto 20 No [place] Unknown Unknown mg tablet mg tablet Kanu SIMMS atorvastati atorvastati No [place] Unknown Unknown n 40 mg n 40 mg Kanu SIMMS tablet tablet losartan 50 losartan 50 2018-02 Yes [place] Unknown Unknown mg tablet mg tablet 2-20 [place] SIMMS denosumab denosumab No [place] Unknown Unknown 60 mg/mL 60 mg/mL Kanu SIMMS subcutaneou subcutaneou s syringe s syringe zolpidem 5 zolpidem 5 No [place] Unknown Unknown mg tablet mg tablet Kanu SIMMS cyanocobala cyanocobala No [place] Unknown Unknown min (vit min (vit Kanu SIMMS BFaisal12) 1,000 B-12) 1,000 mcg tablet mcg tablet amLODIPine amLODIPine No [place] Unknown Unknown 5 mg tablet 5 mg tablet Kan[place] SIMMS benzonatate benzonatate No [place] Unknown Unknown 100 mg 100 mg Kanu SIMMS capsule capsule furosemide furosemide 2018-02 Yes Brand Unknown Unknown 20 mg 20 mg 2-20 MDDonaldo tablet tablet cephALEXin cephALEXin No [place] Unknown Unknown 250 mg 250 mg Kanu SIMMS capsule capsule FLUoxetine FLUoxetine No [place] Unknown Unknown 10 mg 10 mg Kanu SIMMS capsule capsule amiodarone amiodarone 2018-02 Yes [place] Unknown Unknown 200 mg 200 mg 2-20 [place] SIMMS tablet tablet magnesium magnesium 2018-02 Yes [place] Unknown Unknown oxide 400 oxide 400 2-20 [place] SIMMS mg (241.3 mg (241.3 mg mg magnesium) magnesium) tablet tablet Protonix 40 Protonix 40 2018-02 Yes [place] Unknown Unknown mg mg 2-20 [place] SIMMS tablet,kathe tablet,kathe yed release yed release Vitamin D3 Vitamin D3 2018-02 Yes [place] Unknown Unknown 1,000 unit 1,000 unit 2-20 [place] SIMMS capsule capsule ferrous ferrous 2018-02 Yes [place] Unknown Unknown sulfate 325 sulfate 325 2-20 [place] SIMMS mg (65 mg mg (65 mg iron) iron) tablet tablet Vital Signs Vital Name Observation Time Observation Value Comments SYSTOLIC mm[Hg] 2019-02-08 18:09:27 132 mm[Hg] mm[Hg] Method: Sit SYSTOLIC mm[Hg] 2019-02-08 18:09:27 136 mm[Hg] mm[Hg] Method: Stand DIASTOLIC mm[Hg] 2019-02-08 18:09:27 70 mm[Hg] mm[Hg] Method: Sit DIASTOLIC mm[Hg] 2019-02-08 18:09:27 76 mm[Hg] mm[Hg] Method: Stand PULSE 2019-02-08 18:09:27 63 /min /min RESP RATE 2019-02-08 18:09:27 16 /min /min TEMP 2019-02-08 18:09:27 99.1 [degF] Procedures This patient has no known procedures. Results This patient has no known results.
--- OUTSIDE RECORDS SUMMARY | 2019-03-07 00:08 | XMS REPORT ---
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 [...] Pain Mgmt Active 2018-02 Caty pain 04-11 [place] 12:25: [id number] 00 Cardio edema Cardiovasc Active 2018-02 Caty ular 04-11 [place] 12:25: [id number] 00 Respiratory lung sounds Respirator Active 2018-02 Caty deficit y 04-11 [place] 12:25: [id number] Respiratory dyspnea Respirator Active 2018-02 Caty present y 04-11 [place] 12:25: [id number] 00 Endo/Hansel diabetic Endo/Hansel Active 2018-02 Caty foot care 04-11 [place] 12:25: [id number] 00 Sensory impaired Sensory Active 2018-02 Caty hearing 04-11 [place] 12:25: [id number] 00 Integument skin Integument Active 2018-02 Caty integrity 04-11 [place] risk 12:25: [id number] Nutrition nutritional Nutrition Active 2018-02 Caty restriction 04-11 [place] s 12:25: [id number] 00 Elimination urinary Eliminatio Active 2018-02 Caty incontinenc n 04-11 [place] e 12:25: [id number] 00 Elimination bowel Eliminatio Active 2018-02 Caty incontinenc n 04-11 [place] e 12:25: [id number] 00 Neuro confusion Neuro/Emot Active 2018-02 Caty present ion 04-11 [place] 12:25: [id number] 00 Neuro impaired Neuro/Emot Active 2018-02 Caty decision-ma ion 04-11 [place] winnie 12:25: [id number] 00 Neuro memory Neuro/Emot Active 2018-02 Caty deficit ion 04-11 [place] needing 12:25: [id number] supervision 00 Activity ADL Activity Active 2018-02 Caty assistance 04-11 [place] required 12:25: [id number] 00 Activity self-care Activity Active 2018-02 Caty deficit 04-11 [place] 12:25: [id number] Safety structural Safety Active 2018-02 Caty barriers 04-11 [place] present 12:25: [id number] 00 Safety cannot be Safety Active 2018-02 Caty left alone 04-11 [place] 12:25: [id number] 00 Safety fall risk Safety Active 2018-02 Caty factor 04-11 [place] present 12:25: [id number] 00 Safety risk for Safety Active 2018-02 Caty hospitaliza 04-11 [place] tion 12:25: [id number] 00 Medication oral med Meds Active 2018-02 Caty assistance 04-11 [place] required 12:25: [id number] 00 Musculoskel transfer Musculoske Active 2018-02 Caty etal assistance letal 04-11 [place] required 12:25: [id number] 00 Musculoskel requires Musculoske Active 2018-02 Caty etal human letal 04-11 [place] assist to 12:25: [id number] leave home 00 Cardio hypertensio Cardiovasc Active [...] 00 Integument knowledge/s Integument Active 2018-02 Lizabeth purdy 2-26 Carrier RN deficit: pt 16:40: 00 Integument knowledge/s Integument Active 2018-02 Lizabeth kill 2-26 Carrier RN deficit: cg 16:40: 00 Allergies, Adverse Reactions, Alerts Allergy Name Allergy Status Severity Reaction(s) Onset Inactive Treating Comments Type Date Date Clinician amoxicillin Unknown Active Unknown Reaction Mesha Unknown 5-10 (Ni) Altagracia [id number] clavulanic Unknown Active Unknown Reaction Mesha acid Unknown 5-10 (Ni) Altagracia [id number] hydroxyzine Unknown Active Unknown Reaction Mesha Unknown 5-10 (Ni) Altagracia [id number] IVP dye Unknown Active Unknown Reaction Mesha Unknown 5-10 (Ni) Altagracia [id number] oxycodone Unknown Active Unknown Reaction Mesha Unknown 5-10 (Ni) Altagracia [id number] Medications Ordered Filled Start Stop Current Ordering Indication Dosage Frequency Signature Comments Components Medication Medication Date Date Medication? Clinician (SIG) Name Name rodolfo reynolds 2018-02 Yes [place] Unknown Unknown min (vit min (vit 2-20 Kanu SIMMS B-12) 2,500 B-12) 2,500 mcg mcg sublingual sublingual tablet tablet folic acid folic acid 2018-02 Yes [place] Unknown Unknown 1 mg tablet 1 mg tablet 2-20 Kanu SIMMS lisinopril lisinopril No [place] 2 Unknown 10 10 Kanu SIMMS tablets mg-hydrochl mg-hydrochl orothiazide orothiazide 12.5 mg 12.5 mg tablet tablet metHOTREXat metHOTREXat No [place] 10 mg Unknown e sodium e sodium Kanu SIMMS 2.5 mg 2.5 mg tablet tablet metoprolol metoprolol No [place] Unknown Unknown tartrate 50 tartrate 50 Kanu SIMMS mg tablet mg tablet pantoprazol pantoprazol No [place] Unknown Unknown e 40 mg e 40 mg Kanu SIMMS tablet,kathe tablet,kathe yed release yed release rOPINIRole rOPINIRole 2018-02 Yes [place] Unknown Unknown 2 mg tablet 2 mg tablet 2-20 Kanu SIMMS Xarelto 20 Xarelto 20 No [place] Unknown Unknown mg tablet mg tablet Kanu SIMMS atorvastati atorvastati No [place] Unknown Unknown n 40 mg n 40 mg Kanu SIMMS tablet tablet losartan 50 losartan 50 2018-02 Yes [place] Unknown Unknown mg tablet mg tablet 2-20 Kanu SIMMS denosumab denosumab No [place] Unknown Unknown 60 mg/mL 60 mg/mL Kanu SIMMS subcutaneou subcutaneou s syringe s syringe zolpidem 5 zolpidem 5 No [place] Unknown Unknown mg tablet mg tablet Kanu SIMMS cyanocobala cyanocobala No [place] Unknown Unknown min (vit min (vit Kanu SIMMS12) 1,000 B-12) 1,000 mcg tablet mcg tablet amLODIPine amLODIPine No [place] Unknown Unknown 5 mg tablet 5 mg tablet MDKanu benzonatate benzonatate No [place] Unknown Unknown 100 mg 100 mg MD,Kanu capsule capsule furosemide furosemide 2018-02 Yes Brand Unknown Unknown 20 mg 20 mg 2-20 MD,Donaldo tablet tablet cephALEXin cephALEXin No [place] Unknown Unknown 250 mg 250 mg MD,Kanu capsule capsule FLUoxetine FLUoxetine No [place] Unknown Unknown 10 mg 10 mg MD,Kanu capsule capsule amiodarone amiodarone 2018-02 Yes [place] Unknown Unknown 200 mg 200 mg 2-20 MD,Kanu tablet tablet magnesium magnesium 2018-02 Yes [place] Unknown Unknown oxide 400 oxide 400 2-20 MD,Kanu mg (241.3 mg (241.3 mg mg magnesium) magnesium) tablet tablet Protonix 40 Protonix 40 2018-02 Yes [place] Unknown Unknown mg mg 2-20 MD,Kanu tablet,kathe tablet,kathe yed release yed release Vitamin D3 Vitamin D3 2018-02 Yes [place] Unknown Unknown 1,000 unit 1,000 unit 2-20 MD,Kanu capsule capsule ferrous ferrous 2018-02 Yes [place] Unknown Unknown sulfate 325 sulfate 325 2-20 MD,Kanu mg (65 mg mg (65 mg iron) iron) tablet tablet Vital Signs Vital Name Observation Time Observation Value Comments SYSTOLIC mm[Hg] 2019-02-15 18:09:34 122 mm[Hg] mm[Hg] Method: Sit SYSTOLIC mm[Hg] 2019-02-08 18:09:27 136 mm[Hg] mm[Hg] Method: Stand DIASTOLIC mm[Hg] 2019-02-15 18:09:34 68 mm[Hg] mm[Hg] Method: Sit DIASTOLIC mm[Hg] 2019-02-08 18:09:27 76 mm[Hg] mm[Hg] Method: Stand PULSE 2019-02-15 18:09:34 68 /min /min RESP RATE 2019-02-15 18:09:34 18 /min /min TEMP 2019-02-15 18:09:34 99.1 [degF] Procedures This patient has no known procedures. Results This patient has no known results.
--- OUTSIDE RECORDS SUMMARY | 2019-03-07 00:08 | XMS REPORT ---
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 [...] Pain Mgmt Active 2018-02 Caty pain 04-11 [place] 12:25: [id number] Cardio edema Cardiovasc Active 2018-02 Caty ular 04-11 [place] 12:25: [id number] 00 Respiratory lung sounds Respirator Active 2018-02 Caty deficit y 04-11 [place] 12:25: [id number] 00 Respiratory dyspnea Respirator Active 2018-02 Caty present y 04-11 [place] 12:25: [id number] 00 Endo/Hansel diabetic Endo/Hansel Active 2018-02 Caty foot care 04-11 [place] 12:25: [id number] 00 Sensory impaired Sensory Active 2018-02 Caty hearing 04-11 [place] 12:25: [id number] 00 Integument skin Integument Active 2018-02 Caty integrity 04-11 [place] risk 12:25: [id number] 00 Nutrition nutritional Nutrition Active 2018-02 Caty restriction 04-11 [place] s 12:25: [id number] 00 Elimination urinary Eliminatio Active 2018-02 Caty incontinenc n 04-11 [place] e 12:25: [id number] 00 Elimination bowel Eliminatio Active 2018-02 Caty incontinenc n 04-11 [place] e 12:25: [id number] 00 Neuro confusion Neuro/Emot Active 2018-02 Caty present ion 04-11 [place] 12:25: [id number] 00 Neuro impaired Neuro/Emot Active 2018-02 Caty decision-ma ion 04-11 [place] winnie 12:25: [id number] 00 Neuro memory Neuro/Emot Active 2018-02 Caty deficit ion 04-11 [place] needing 12:25: [id number] supervision 00 Activity ADL Activity Active 2018-02 Caty assistance 04-11 [place] required 12:25: [id number] 00 Activity self-care Activity Active 2018-02 Caty deficit 04-11 [place] 12:25: [id number] 00 Safety structural Safety Active 2018-02 Caty barriers 04-11 [place] present 12:25: [id number] 00 Safety cannot be Safety Active 2018-02 Caty left alone 04-11 [place] 12:25: [id number] 00 Safety fall risk Safety Active 2018-02 Caty factor 04-11 [place] present 12:25: [id number] Safety risk for Safety Active 2018-02 Caty hospitaliza 04-11 [place] tion 12:25: [id number] 00 Medication oral med Meds Active 2018-02 Caty assistance 04-11 [place] required 12:25: [id number] 00 Musculoskel transfer Musculoske Active 2018-02 Caty etal assistance letal 04-11 [place] required 12:25: [id number] 00 Musculoskel requires Musculoske Active 2018-02 Caty etal human letal 04-11 [place] assist to 12:25: [id number] leave home 00 Allergies, Adverse Reactions, Alerts Allergy Name Allergy Status Severity Reaction(s) Onset Inactive Treating Comments Type Date Date Clinician amoxicillin Unknown Active Unknown Reaction Mesha Unknown 5-10 (Ni) Altagracia [id number] clavulanic Unknown Active Unknown Reaction Mesha acid Unknown 5-10 (Ni) Altagracia [id number] hydroxyzine Unknown Active Unknown Reaction Mesha Unknown 5-10 (Ni) Altagracia [id number] IVP dye Unknown Active Unknown Reaction Mesha Unknown 5-10 (Ni) Altagracia [id number] oxycodone Unknown Active Unknown Reaction Mesha Unknown 5-10 (Ni) Altagracia [id number] Medications Ordered Filled Start Stop Current Ordering Indication Dosage Frequency Signature Comments Components Medication Medication Date Date Medication? Clinician (SIG) Name Name cyanocobala cyanocobala 2018-02 Yes [place] Unknown Unknown min (vit min (vit 2- Kanu SIMMS B-12) 2,500 B-12) 2,500 mcg mcg sublingual sublingual tablet tablet folic acid folic acid 2018-02 Yes [place] Unknown Unknown 1 mg tablet 1 mg tablet 04-11 Kanu SIMMS lisinopril lisinopril No [place] 2 Unknown 10 10 Kanu SIMMS tablets mg-hydrochl mg-hydrochl orothiazide orothiazide 12.5 mg 12.5 mg tablet tablet metHOTREXat metHOTREXat No [place] 10 mg Unknown e sodium e sodium Kanu SIMMS 2.5 mg 2.5 mg tablet tablet metoprolol metoprolol No [place] Unknown Unknown tartrate 50 tartrate 50 Kanu SIMMS mg tablet mg tablet pantoprazol pantoprazol No [place] Unknown Unknown e 40 mg e 40 mg Kanu SIMMS tablet,kathe tablet,kathe yed release yed release rOPINIRole rOPINIRole 2018-02 Yes [place] Unknown Unknown 2 mg tablet 2 mg tablet 2-20 Kanu SIMMS Xarelto 20 Xarelto 20 No [place] Unknown Unknown mg tablet mg tablet Kanu SIMMS atorvastati atorvastati No [place] Unknown Unknown n 40 mg n 40 mg Kanu SIMMS tablet tablet losartan 50 losartan 50 2018-02 Yes [place] Unknown Unknown mg tablet mg tablet 2-20 Kanu SIMMS denosumab denosumab No [place] Unknown Unknown 60 mg/mL 60 mg/mL Kanu SIMMS subcutaneou subcutaneou s syringe s syringe zolpidem 5 zolpidem 5 No [place] Unknown Unknown mg tablet mg tablet Kanu SIMMS cyanocobala cyanocobala No [place] Unknown Unknown min (vit min (vit Kanu SIMMS B-12) 1,000 B-12) 1,000 mcg tablet mcg tablet amLODIPine amLODIPine No [place] Unknown Unknown 5 mg tablet 5 mg tablet Kanu SIMMS benzonatate benzonatate No [place] Unknown Unknown 100 mg 100 mg Kanu SIMMS capsule capsule furosemide furosemide 2018-02 Yes Brand Unknown Unknown 20 mg 20 mg 2-20 MDDonaldo tablet tablet cephALEXin cephALEXin No [place] Unknown Unknown 250 mg 250 mg Kanu SIMMS capsule capsule FLUoxetine FLUoxetine No [place] Unknown Unknown 10 mg 10 mg Kanu SIMMS capsule capsule amiodarone amiodarone 2018-02 Yes [place] Unknown Unknown 200 mg 200 mg 2-20 Kanu SIMMS tablet tablet magnesium magnesium 2018-02 Yes [place] Unknown Unknown oxide 400 oxide 400 2-20 Kanu SIMMS mg (241.3 mg (241.3 mg mg magnesium) magnesium) tablet tablet Protonix 40 Protonix 40 2018-02 Yes [place] Unknown Unknown mg mg 2-20 Kanu SIMMS tablet,kathe tablet,kathe yed release yed release Vitamin D3 Vitamin D3 2018-02 Yes [place] Unknown Unknown 1,000 unit 1,000 unit 2-20 Kanu SIMMS capsule capsule ferrous ferrous 2018-02 Yes [place] Unknown Unknown sulfate 325 sulfate 325 2-20 Kanu SIMMS mg (65 mg mg (65 mg iron) iron) tablet tablet Vital Signs Vital Name Observation Time Observation Value Comments SYSTOLIC mm[Hg] 2019-02-11 18:09:30 138 mm[Hg] mm[Hg] Method: Sit SYSTOLIC mm[Hg] 2019-02-08 18:09:27 136 mm[Hg] mm[Hg] Method: Stand DIASTOLIC mm[Hg] 2019-02-11 18:09:30 72 mm[Hg] mm[Hg] Method: Sit DIASTOLIC mm[Hg] 2019-02-08 18:09:27 76 mm[Hg] mm[Hg] Method: Stand PULSE 2019-02-11 18:09:30 62 /min /min RESP RATE 2019-02-11 18:09:30 18 /min /min TEMP 2019-02-11 18:09:30 98.4 [degF] Procedures This patient has no known procedures. Results This patient has no known results.
--- OUTSIDE RECORDS SUMMARY | 2019-03-07 00:08 | XMS REPORT ---
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 [...] Pain Mgmt Active 2018-02 [place] pain 04-11 [place] 12:25: [id number] Cardio edema Cardiovasc Active 2018-02 [place] ular 04-11 [place] 12:25: [id number] Respiratory lung sounds Respirator Active 2018-02 [place] deficit y 04-11 [place] 12:25: [id number] 00 Respiratory dyspnea Respirator Active 2018-02 [place] present y 04-11 [place] 12:25: [id number] 00 Endo/Hansel diabetic Endo/Hansel Active 2018-02 [place] foot care 04-11 [place] 12:25: [id number] 00 Sensory impaired Sensory Active 2018-02 [place] hearing 04-11 [place] 12:25: [id number] 00 Integument skin Integument Active 2018-02 [place] integrity 04-11 [place] risk 12:25: [id number] Nutrition nutritional Nutrition Active 2018-02 [place] restriction 04-11 [place] s 12:25: [id number] 00 Elimination urinary Eliminatio Active 2018-02 [place] incontinenc n 04-11 [place] e 12:25: [id number] 00 Elimination bowel Eliminatio Active 2018-02 [place] incontinenc n 04-11 [place] e 12:25: [id number] 00 Neuro confusion Neuro/Emot Active 2018-02 [place] present ion 04-11 [place] 12:25: [id number] 00 Neuro impaired Neuro/Emot Active 2018-02 [place] decision-ma ion 04-11 [place] winnie 12:25: [id number] Neuro memory Neuro/Emot Active 2018-02 [place] deficit ion 04-11 [place] needing 12:25: [id number] supervision 00 Activity ADL Activity Active 2018-02 [place] assistance 04-11 [place] required 12:25: [id number] 00 Activity self-care Activity Active 2018-02 [place] deficit 04-11 [place] 12:25: [id number] 00 Safety structural Safety Active 2018-02 [place] barriers 04-11 [place] present 12:25: [id number] 00 Safety cannot be Safety Active 2018-02 [place] left alone 04-11 [place] 12:25: [id number] 00 Safety fall risk Safety Active 2018-02 [place] factor 04-11 [place] present 12:25: [id number] 00 Safety risk for Safety Active 2018-02 [place] hospitaliza 04-11 [place] tion 12:25: [id number] 00 Medication oral med Meds Active 2018-02 [place] assistance 04-11 [place] required 12:25: [id number] 00 Musculoskel transfer Musculoske Active 2018-02 [place] etal assistance letal 04-11 [place] required 12:25: [id number] 00 Musculoskel requires Musculoske Active 2018-02 [place] etal human letal 04-11 [place] assist to 12:25: [id number] leave home 00 Cardio hypertensio Cardiovasc Active [...] Unknown Reaction Mesha Unknown 5-10 (Ni) [place] [id number] clavulanic Unknown Active Unknown Reaction Mesha acid Unknown 5-10 (Ni) [place] [id number] hydroxyzine Unknown Active Unknown Reaction Mesha Unknown 5-10 (Ni) [place] [id number] IVP dye Unknown Active Unknown Reaction Mesha Unknown 5-10 (Ni) [place] [id number] oxycodone Unknown Active Unknown Reaction Mesha Unknown 5-10 (Ni) [place] [id number] Medications Ordered Filled Start Stop Current Ordering Indication Dosage Frequency Signature Comments Components Medication Medication Date Date Medication? Clinician (SIG) Name Name rodolfo reynolds 2018-02 Yes [place] Unknown Unknown min (vit min (vit 2-20 [place] SIMMS B-12) 2,500 B-12) 2,500 mcg mcg sublingual sublingual tablet tablet folic acid folic acid 2018-02 Yes [place] Unknown Unknown 1 mg tablet 1 mg tablet 2-20 [place] SIMMS lisinopril lisinopril No [place] 2 Unknown 10 10 [place] SIMMS tablets mg-hydrochl mg-hydrochl orothiazide orothiazide 12.5 mg 12.5 mg tablet tablet metHOTREXat metHOTREXat No [place] 10 mg Unknown e sodium e sodium [place] SIMMS 2.5 mg 2.5 mg tablet tablet metoprolol metoprolol No [place] Unknown Unknown tartrate 50 tartrate 50 [place] SIMMS mg tablet mg tablet pantoprazol pantoprazol No [place] Unknown Unknown e 40 mg e 40 mg [place] SIMMS tablet,kathe tablet,kathe yed release yed release rOPINIRole rOPINIRole 2018-02 Yes [place] Unknown Unknown 2 mg tablet 2 mg tablet 2-20 [facility] SIMMS Xarelto 20 Xarelto 20 No [place] Unknown Unknown mg tablet mg tablet [facility] SIMMS atorvastati atorvastati No [place] Unknown Unknown n 40 mg n 40 mg [place] SIMMS tablet tablet losartan 50 losartan 50 2018-02 Yes [place] Unknown Unknown mg tablet mg tablet 2-20 [facility] SIMMS denosumab denosumab No [place] Unknown Unknown 60 mg/mL 60 mg/mL [place] SIMMS subcutaneou subcutaneou s syringe s syringe zolpidem 5 zolpidem 5 No [place] Unknown Unknown mg tablet mg tablet [facility] SIMMS cyanocobala cyanocobala No [place] Unknown Unknown min (vit min (vit [place] SIMMS12) 1,000 B-12) 1,000 mcg tablet mcg tablet amLODIPine amLODIPine No [place] Unknown Unknown 5 mg tablet 5 mg tablet MDKanu benzonatate benzonatate No [place] Unknown Unknown 100 mg 100 mg MD,Kanu capsule capsule furosemide furosemide 2018-02 Yes Brand Unknown Unknown 20 mg 20 mg 2-20 MD,Donaldo tablet tablet cephALEXin cephALEXin No [place] Unknown Unknown 250 mg 250 mg MD,Kanu capsule capsule FLUoxetine FLUoxetine No [place] Unknown Unknown 10 mg 10 mg MD,Kanu capsule capsule amiodarone amiodarone 2018-02 Yes [place] Unknown Unknown 200 mg 200 mg 2-20 MD,Kanu tablet tablet magnesium magnesium 2018-02 Yes [place] Unknown Unknown oxide 400 oxide 400 2-20 MD,Kanu mg (241.3 mg (241.3 mg mg magnesium) magnesium) tablet tablet Protonix 40 Protonix 40 2018-02 Yes [place] Unknown Unknown mg mg 2-20 MD,Kanu tablet,kathe tablet,kathe yed release yed release Vitamin D3 Vitamin D3 2018-02 Yes [place] Unknown Unknown 1,000 unit 1,000 unit 2-20 MD,Kanu capsule capsule ferrous ferrous 2018-02 Yes [place] Unknown Unknown sulfate 325 sulfate 325 2-20 [...]
--- OUTSIDE RECORDS SUMMARY | 2019-03-07 00:08 | XMS REPORT | Summary of Care ---
:1935 Author Organization [facility] Address [address] [place] [address] Care Team Providers Name Role Phone [place] Kanu Ndiaye Primary Care Provider Sherrie Moon RN Unavailable Reason for Visit Reason Comments Hospital Follow Up Patient discharged from [facility] on 02/01/2019. daughter states that she does not wear her collar . 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); [address] Closed nondisplaced fracture of posterior arch of first cervical vertebra with routine healing; [place], [place] [id number] [place] [address] Chronic insomnia; [phone] S/P CABG (coronary artery bypass graft); [phone] Controlled type 2 diabetes mellitus with stage 3 chronic kidney disease, without long-term current use of insulin ([facility]); (Fax) Essential hypertension, benign; Restless leg syndrome; Other iron deficiency anemia; Other congestive heart failure (HCC); Polypharmacy Allergies Active Allergy Reactions Severity Noted Date Comments Amoxicillin Trihydrate GI Reaction Medium 06/29/2016 Hydroxyzine Unknown Reaction 05/29/2015 documented as of this encounter (statuses as of 02/15/2019) Medications Medication Sig Dispensed Refills Start Date End Date Status Cyanocobalamin Take 2,500 0 Active (VITAMIN B-12) 1000 mcg by mouth MCG Oral Tab EVERY MORNING. Acetaminophen Take by 0 Active (TYLENOL 8 HOUR PO) mouth NEEDED. foliC acid 1 MG Oral Take 1 Tab by 90 Tab 3 12/19/2017 Active Tab mouth DAILY. losartan (COZAAR) 50 Take 1 Tab by 90 Tab 3 02/19/2018 Active MG Oral Tab mouth DAILY. ropinirole (REQUIP) 2 Take 1 Tab by 90 Tab 3 03/09/2018 Active MG Oral mouth EVERY TabIndications: BEDTIME. Restless leg syndrome pantoprazole TAKE 1 TABLET 90 Tab 3 06/12/2018 Active (PROTONIX) 40 MG Oral BY MOUTH Tab EC EVERY DAY metoprolol Take 1 Tab by 180 Tab 5 11/05/2018 Active (LOPRESSOR) 50 MG mouth EVERY Oral TabIndications: EVENING. Essential hypertension, benign amiodarone (PACERONE, Take 200 mg 0 Active CORDARONE) 200 MG by mouth Oral Tab DAILY. Cholecalciferol Take 5,000 0 Active (VITAMIN D3 PO) Units by mouth DAILY. Ferrous Sulfate Take 1 Tab by 0 Active (IRON) 325 (65 Fe) MG mouth DAILY. Oral Tab Magnesium 400 MG Oral Take 1 Tab by 0 Active Tab mouth DAILY. Melatonin 5 MG Oral Take 1 Tab by 0 Active Tab mouth DAILY. torsemide (DEMADEX) Take 1 Tab by 30 Tab 5 02/15/2019 Active 20 MG Oral Tab mouth DAILY. Cholecalciferol Take 7,000 0 Discontinued (VITAMIN D PO) Units by 9 mouth DAILY. Methotrexate 2.5 MG TAKE 4 16 Tab 5 05/07/2018 Discontinued Oral Tab TABLETS BY 9 MOUTH EVERY 7 DAYS Benzonatate 200 MG TAKE ONE 30 Cap 1 08/07/2018 Discontinued Oral Cap CAPSULE BY 9 MOUTH EVERY 6 HOURS NEEDED FOR COUGH fluoxetine (PROZAC) Take 1 Cap by 30 Cap 1 08/30/2018 Discontinued 10 MG Oral mouth DAILY. 9 CapIndications: Current moderate episode of major depressive disorder without prior episode ([facility]) zolpidem (AMBIEN) 5 TAKE 1 TABLET 30 Tab 5 10/18/2018 Discontinued MG Oral BY MOUTH AT 9 TabIndications: BEDTIME Chronic insomnia NEEDED FOR SLEEP - MAXIMUM DAILY DOSE OF 1 PER DAY documented as of this encounter (statuses as of 02/15/2019) Active Problems Problem Noted Date Controlled type 2 diabetes mellitus with stage 3 chronic kidney disease, 02/15 without long-term current use of insulin Congenital heart failure 02/15/2019 Closed nondisplaced fracture of posterior arch of first cervical vertebra with routine healing CKD stage 3 due to type 2 diabetes mellitus 11/05/2018 Chronic insomnia 02/19/2018 S/P CABG (coronary artery bypass graft) 09/07/2017 [facility] (current) use of anticoagulants 06/30/2017 Overview: 02/21/18 - [facility], has d/c'd warfarin Managed by: [facility] Referring Provider: Veronica Indication: PAF [...] as of this encounter (statuses as of 02/15/2019) Resolved Problems Problem Noted Date Resolved Date Controlled type 2 diabetes mellitus with microalbuminuria 07/21/20172018 Encounter for aftercare for long-term (current) use of 06/30/2017 06/30/2017 antibiotics Diabetes mellitus 07/23/2013 02/15/2019 documented as of this encounter (statuses as of 02/15/2019) Immunizations Name Administration Dates Next Due Influenza [...] Sign Reading Time Taken Comments Blood Pressure 118/70 02/15/2019 10:54 AM EST Pulse 70 02/15/2019 10:54 AM EST Temperature - - Respiratory Rate - - Oxygen Saturation - - Inhaled Oxygen Concentration - - Weight 75.8 kg (167 lb) 02/15/2019 10:54 AM EST Height 154.9 cm (5' 1") 02/15/2019 10:54 AM EST Body Mass Index 31.55 02/15/2019 10:54 AM EST documented in this encounter Patient Instructions Patient InstructionsKanu Bhardwaj MD - 02/15/2019 11:00 AM ESTStop acid hiram folic acid and b12 Stop zolpidem Use melatonin Melatonin is a naturally occuring hormone that may help your sleep. It is sold over the counter. Please try 4-8 mg 1-2 hours before bedtime. Torsemide 20 mg in am for fluid Blood work today Blood work 3 weeks and follow up congestive heart failure Jax WELDON or Patricia WELDON same day 11 :29 AM EST documented in this encounter Progress Notes Kanu Bhardwaj MD - 02/15/2019 11:00 AM EST PATIENT: Romina Kahn : 1935 DATE OF SERVICE: 02/15/2019 CHIEF COMPLAINT: Chief Complaint Patient presents with Hospital Follow Up Patient discharged from [facility] on 02/01/2019. daughter states that she does not wear her collar . Subjective HISTORY OF PRESENT ILLNESS: Romina Kahn is a 83-y.o. female. HPI Here with daughter follow up to [facility] admission and then care home facility 3 month stay for C1 closed fracture and other issues such as congestive heart failure ankle edema and diabetes mellitus and chronic atrial fibrillation She is now home with daughter 2 weeks and she has gained weight with increased ankle edema she has chronic dry cough and dyspnea on exertion she is now wheelchair bound and she was sent home opn no beta hiram and no furosemide she has been on 40 mg daily in care home facility She denies chest pain or productive cough No upper respiratory infection symptoms She was also given diagnosis low mag and low iron she was placed on proton pump inhibitor and multiple other medications of unclear indication She was taken off zolpidem due to falls and unsteadiness and now using melatonin Her sleep is adequate Wt Readings from Last 3 Encounters: 02/15/19 167 lb (75.8 kg) 11/05/18 147 lb (66.7 kg) 11/01/18 149 lb (67.6 kg) Patient Active Problem List Diagnosis Essential hypertension, benign Restless leg syndrome Gallstone pancreatitis Pancreatic insufficiency History of CVA (cerebrovascular accident) Carotid stenosis, bilateral Osteoarthritis, knee Mixed hyperlipidemia GERD (gastroesophageal reflux disease) Left bundle branch block 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 (HCC) Valvular heart disease Atrial fibrillation, chronic [facility] (current) use of anticoagulants S/P CABG (coronary artery bypass graft) Chronic insomnia Closed nondisplaced fracture of posterior arch of first cervical vertebra with routine healing 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 amiodarone (PACERONE, CORDARONE) 200 MG Oral Tab Take 200 mg by mouth DAILY. Cholecalciferol (VITAMIN D3 PO) Take 5,000 Units by mouth DAILY. Cyanocobalamin (VITAMIN B-12) 1000 MCG Oral Tab Take 2,500 mcg by mouth EVERY MORNING. Ferrous Sulfate (IRON) 325 (65 Fe) MG Oral Tab Take 1 Tab by mouth DAILY. foliC acid 1 MG Oral Tab Take 1 Tab by mouth DAILY. losartan (COZAAR) 50 MG Oral Tab Take 1 Tab by mouth DAILY. Magnesium 400 MG Oral Tab Take 1 Tab by mouth DAILY. Melatonin 5 MG Oral Tab Take 1 Tab by mouth DAILY. metoprolol (LOPRESSOR) 50 MG Oral Tab Take 1 Tab by mouth EVERY EVENING. pantoprazole (PROTONIX) 40 MG Oral Tab EC TAKE 1 TABLET BY MOUTH EVERY DAY ropinirole (REQUIP) 2 MG Oral Tab Take 1 Tab by mouth EVERY BEDTIME. torsemide (DEMADEX) 20 MG Oral Tab Take 1 Tab by mouth DAILY. No current facility-administered medications for this visit. Allergies Allergen Reactions Amoxicillin Trihydrate GI Reaction Hydroxyzine Unknown Reaction Social History Socioeconomic History Marital status: Spouse name: Not on file Number of children: Not on file Years of education: Not on file Highest education level: Not on file Occupational History Not on file Social Needs Financial resource strain: Not on file Food insecurity Worry: Not on file Inability: Not on file Transportation needs Medical: Not on file Non-medical: Not on file Tobacco Use Smoking status: Never Smoker Smokeless tobacco: Never Used Substance and Sexual Activity Alcohol use: No Alcohol/week: 0.0 standard drinks Drug use: No Sexual activity: Not Currently Lifestyle Physical activity Days per week: Not on file Minutes per session: Not on file Stress: Not on file Relationships Social connections Talks on phone: Not on file Gets together: Not on file Attends rastafari service: Not on file Active member of club or organization: Not on file Attends meetings of clubs or organizations: Not on file Relationship status: Not on file Intimate partner violence Fear of current or ex partner: Not [...] Concern No Social History Narrative Moved from [facility] from a house to live with daughter in [facility] May 2013 Previously lived alone 30 years 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 ROS no gastro-intestinal or genito-urinary symptoms All rest of the 12 item ROS is negative. Objective PHYSICAL EXAM: VITALS: BP 118/70 | Pulse 70 | Ht 5' 1" (1.549 m) | Wt 167 lb (75.8 kg) | BMI 31.55 kg/m Body mass index is 31.55 kg/m. Physical Exam There is 2+ bilateral ankle edema with no tenderness to palpation, erythema, or heat to the touch. S1 and S2 normal, no murmurs, clicks, gallops or rubs. Regular rate and rhythm. Bilateral rales at bases lung no rhonchi Mental status exam; she is alert, orient to time, person and place. Normal thought content, speech, affect, mood and dress are noted. The abdomen is soft without tenderness, guarding, mass, rebound or organomegaly. Bowel sounds are normal. No CVA tenderness or inguinal adenopathy noted. ASSESSMENT / IMPRESSION: ICD-9-CM ICD-10-CM 1. Hypomagnesemia continue mag 400 and check level 275.2 E83.42 COMPREHENSIVE METABOLIC PANEL MAGNESIUM LEVEL 2. CKD stage 3 due to type 2 diabetes mellitus ([facility]) monitor creatinine and potassium 250.40 E11.22 585.3 N18.3 3. Closed nondisplaced fracture of posterior arch of first cervical vertebra with routine healing follow up Dr Zendejas and continue rigid collar V54.17 S12.031D 4. Chronic insomnia melatonin at bedtime 780.52 F51.04 5. S/P CABG (coronary artery bypass graft) V45.81 Z95.1 6. Controlled type 2 diabetes mellitus with stage 3 chronic kidney disease, without long-term current use of insulin ([facility]) check hemoglobin A1C today no medications 250.40 E11.22 GLYCOHEMOGLOBIN A1C 585.3 N18.3 7. Essential hypertension, benign at goal continue losartan 401.1 I10 8. Restless leg syndrome continue requip and mag at bedtime 333.94 G25.81 9. Other iron deficiency anemia continue iron 325 mg daily check complete blood count 280.8 D50.8 CBC WITH DIFFERENTIAL FERRITIN 10. Other congestive heart failure (HCC) torsemide 20 mg daily 428.0 I50.9 NT PROBNP 11. Polypharmacy stop folate proton pump inhibitor b12 V58.69 Z79.899 Patient Instructions Stop acid hiram folic acid and b12 Stop zolpidem Use melatonin Melatonin is a naturally occuring hormone that may help your sleep. It is sold over the counter. Please try 4-8 mg 1-2 hours before bedtime. Torsemide 20 mg in am for fluid Blood work today Blood work 3 weeks and follow up congestive heart failure Jax WELDON or Patricia WELDON same day Kanu Bhardwaj MD 02/15/2019 11:38 documented in this encounter Plan of Treatment Date Type Specialty Care Team Description 03/07/2019 Office Visit Family Practice Randa Castañeda PA-C [address] [place] [address] [phone] Name Type Priority Associated Diagnoses Date/Time CBC WITH DIFFERENTIAL Lab Routine Other iron deficiency 02/15/2019 11:38 AM anemia EST FERRITIN Lab Routine Other iron deficiency 02/15/2019 11:38 AM anemia EST COMPREHENSIVE METABOLIC Lab Routine Hypomagnesemia 02/15/2019 11:38 AM PANEL EST NT PROBNP Lab Routine Other congestive heart 02/15/2019 11:38 AM failure (HCC) EST MAGNESIUM LEVEL Lab Routine Hypomagnesemia 02/15/2019 11:38 AM EST GLYCOHEMOGLOBIN A1C Lab Routine Controlled type 2 02/15/2019 11:38 AM diabetes mellitus with EST stage 3 chronic kidney disease, without long-term current use of insulin (HCC) Health Maintenance Due Date Last Done Comments DTaP/Tdap/Td Vaccines (1 - 1948 Tdap) ZOSTER IMMUNIZATION SERIES (1 06/27/1987 of 2) FALL RISK ASSESSMENT 2002 MEDICARE ANNUAL WELLNESS VISIT 12/09/2017 12/09/2016 INFLUENZA VACCINE (#1) 2018 11/29/2017, 11/22/2016 DEPRESSION SCREENING 07/12/2019 07/11/2018 PNEUMOCOCCAL 65+YRS Completed 12/09/2016, 10/03/2014 HEPATITIS A IMMUNIZATION Aged Out No longer eligible based SERIES on patient's age to complete this topic HPV IMMUNIZATION SERIES Aged Out No longer eligible based on patient's age to complete this topic MENINGOCOCCAL VACCINE IMM Aged Out No longer eligible based on patient's age to complete this topic documented as of this encounter Goals Goal Patient Goal Associated Recent Patient-Stated? Author Type Problems Progress Blood Pressure Blood Pressure 118/70 No [place], < 140/90 (02/15/2019 Kanu Ndiaye, 10:54 AM EST) Note: Hypertension Care Plan Based on the [...] Educational Resources. record my blood pressure results. [facility] is safe and secure way for you [...] Educational Resources: National Heart, Lung, & Blood [place] http://nhlbi.nih.gov/hbp/index.html The DASH Diet Eating Plan http://www.nhlbi.nih.gov/health/health-topics/ topics/dash/ Academy of Nutrition & DIetetics http://eatright.org National Smoking Cessation Site http://smokefree.gov Blood Pressure < Blood Pressure 118/70 (02/15/2019 No Kristine Maldonado FNP 140/90 10:54 AM EST) Note: This is an individualized treatment (blood pressure) goal for Romina Kahn: Displayed above (on the left) is your goal for blood pressure control. Your most recent blood pressure is also shown above, on the right. You should try to achieve blood pressures that are lower than your goal listed above (on the left). Weight increase vs. 18 mo CHF 20 (02/15/2019 10:54 AM EST) Kanu Chatterjee MD min (lbs) < 5 Note: This is an individualized treatment (congestive heart failure, CHF) goal for Romina Kahn: Displayed above (on the right) is how many pounds you are in excess of your lowest weight over the past 18 months. Note that lower numbers are better. Excessive weight gain often indicates fluid reten tion and worsening heart failure. You should contact your doctor immediately if the above number is too high (above your goal, the number on the left). Depression screen (PHQ-9) total score [...] my blood sugar results (including dextrose sticks). [facility] is safe and secure way for you [...] < 7.0 Diabetes 5.5 (11/01/2018 2:59 No Kristnie Maldonado FNP PM EDT) Note: This is an individualized treatment (diabetes control, HgbA1C) goal for Romina Kahn: Displayed above is your progress towards your HgbA1C goal. Your goal is shown above (on the left); your most recent HgbA1C is shown on the right. Note that lower numbers are better. Weight loss vs. 18 mo Lifestyle 0 (02/15/2019 10:54 AM No Kristine Maldonado FNP max (lbs) >= 10 EST) Note: This is an individualized lifestyle goal [...] Summaries. Keep a regular sleep schedule Lifestyle Kanu Chatterjee MD Note: This is an individualized lifestyle goal for Romina Kahn: Please maintain a regular sleep schedule. This may help with some symptoms of depression. Consume a [id number] diet Lifestyle Kanu Chatterjee MD Note: This is an individualized lifestyle goal for Romina Kahn: Please do not add additional salt to your food. Additional salt may lead to fluid retention and worsen your congestive heart failure. Take all prescribed medications as Self-management No [...] to be addressed on an ongoing basis. Check your weight daily Self-management Kanu Chatterjee MD Note: This is an individualized self-management goal for Romina Kahn: Please check your weight daily. Refer to the accompanying CHF treatment goal and call your doctor immediately for further instructions on how to respond to unexpected weight gain. 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) Closed nondisplaced fracture of posterior arch of first cervical vertebra with routine healing Chronic insomnia Insomnia, unspecified S/P CABG (coronary artery bypass graft) Postsurgical aortocoronary bypass status Controlled type 2 diabetes mellitus with stage 3 chronic kidney disease, without long-term current use of insulin (HCC) Essential hypertension, benign Restless leg syndrome Restless legs syndrome (RLS) Other iron deficiency anemia Other congestive heart failure (HCC) Congestive heart failure, unspecified Polypharmacy Issue of repeat prescriptions documented in this encounter Insurance Payer Benefit Plan / Subscriber ID Effective Dates Phone Address Type Group MEDICARE MEDICARE PART A xxxxxxxxxxx 2002-Present Medicare & B [facility] CARE xxxxxxxxxxx 2017-Present [facility] [address] (Home) [address] [phone] [place], [place] (Work) [id number] documented as of this encounter Advance Directives Type Date Recorded Patient Councilman Explanation Advance Directives 08/09/2018 12:51 PM Health Care Proxy
--- OUTSIDE RECORDS SUMMARY | 2019-03-07 00:08 | XMS REPORT ---
:1935 Author Organization [facility] Care Team Providers Name Role Phone Unavailable [...] Pain Mgmt Active 2018-02 [place] pain 04-11 [place] 12:25: [id number] Cardio edema Cardiovasc Active 2018-02 [place] ular 04-11 [place] 12:25: [id number] 00 Respiratory lung sounds Respirator Active 2018-02 [place] deficit y 04-11 [place] 12:25: [id number] 00 Respiratory dyspnea Respirator Active 2018-02 [facility] present y 04-11 [place] 12:25: [id number] 00 Endo/Hansel diabetic Endo/Hansel Active 2018-02 [facility] foot care 04-11 [place] 12:25: [id number] 00 Sensory impaired Sensory Active 2018-02 [facility] hearing 04-11 [place] 12:25: [id number] 00 Integument skin Integument Active 2018-02 Caty integrity 04-11 [place] risk 12:25: [id number] 00 Nutrition nutritional Nutrition Active 2018-02 [place] restriction 04-11 [place] s 12:25: [id number] 00 Elimination urinary Eliminatio Active 2018-02 [facility] incontinenc n 04-11 [place] e 12:25: [id number] 00 Elimination bowel Eliminatio Active 2018-02 [place] incontinenc n 04-11 [place] e 12:25: [id number] 00 Neuro confusion Neuro/Emot Active 2018-02 [facility] present ion 04-11 [place] 12:25: [id number] 00 Neuro impaired Neuro/Emot Active 2018-02 [facility] decision-ma ion 04-11 [place] winnie 12:25: [id number] 00 Neuro memory Neuro/Emot Active 2018-02 [place] deficit ion 04-11 [place] needing 12:25: [id number] supervision 00 Activity ADL Activity Active 2018-02 [place] assistance 04-11 [place] required 12:25: [id number] 00 Activity self-care Activity Active 2018-02 Cat[place] deficit 04-11 [place] 12:25: [id number] 00 Safety structural Safety Active 2018-02 Caty barriers 04-11 [place] present 12:25: [id number] 00 Safety cannot be Safety Active 2018-02 Caty left alone 04-11 [place] 12:25: [id number] 00 Safety fall risk Safety Active 2018-02 Caty factor 04-11 [place] present 12:25: [id number] 00 Safety risk for Safety Active 2018-02 Caty hospitaliza 04-11 [place] tion 12:25: [id number] 00 Medication oral med Meds Active 2018-02 Caty assistance 04-11 [place] required 12:25: [id number] 00 Musculoskel transfer Musculoske Active 2018-02 Caty etal assistance letal 04-11 [place] required 12:25: [id number] 00 Musculoskel requires Musculoske Active 2018-02 Caty etal human letal 04-11 [place] assist to 12:25: [id number] leave home 00 Allergies, Adverse Reactions, Alerts Allergy Name Allergy Status Severity Reaction(s) Onset Inactive Treating Comments Type Date Date Clinician amoxicillin Unknown Active Unknown Reaction Mesha Unknown 5-10 (Ni) Altagracia [id number] clavulanic Unknown Active Unknown Reaction Mesha acid Unknown 5-10 (Ni) Altagracia [id number] hydroxyzine Unknown Active Unknown Reaction Mesha Unknown 5-10 (Ni) Altagracia [id number] IVP dye Unknown Active Unknown Reaction Mesha Unknown 5-10 (Ni) Altagracia [id number] oxycodone Unknown Active Unknown Reaction Mesha Unknown 5-10 (Ni) Altagracia [id number] Medications Ordered Filled Start Stop Current Ordering Indication Dosage Frequency Signature Comments Components Medication Medication Date Date Medication? Clinician (SIG) Name Name cyanocobala cyanocobala 2018-02 Yes [place] Unknown Unknown min (vit min (emmanuel 2-20 [facility] SIMMS B-12) 2,500 B-12) 2,500 mcg mcg sublingual sublingual tablet tablet folic acid folic acid 2018-02 Yes [place] Unknown Unknown 1 mg tablet 1 mg tablet 2-20 [facility] SIMMS lisinopril lisinopril No [place] 2 Unknown 10 10 [place] SIMMS tablets mg-hydrochl mg-hydrochl orothiazide orothiazide 12.5 mg 12.5 mg tablet tablet metHOTREXat metHOTREXat No [place] 10 mg Unknown e sodium e sodium [facility] SIMMS 2.5 mg 2.5 mg tablet tablet metoprolol metoprolol No [place] Unknown Unknown tartrate 50 tartrate 50 [facility] SIMMS mg tablet mg tablet pantoprazol pantoprazol No [place] Unknown Unknown e 40 mg e 40 mg [facility] SIMMS tablet,kathe tablet,kathe yed release yed release rOPINIRole rOPINIRole 2018-02 Yes [place] Unknown Unknown 2 mg tablet 2 mg tablet 2-20 [facility] SIMMS Xarelto 20 Xarelto 20 No [place] Unknown Unknown mg tablet mg tablet [facility] SIMMS atorvastati atorvastati No [place] Unknown Unknown n 40 mg n 40 mg [facility] SIMMS tablet tablet losartan 50 losartan 50 2018-02 Yes [place] Unknown Unknown mg tablet mg tablet 2-20 [facility] SIMMS denosumab denosumab No [place] Unknown Unknown 60 mg/mL 60 mg/mL [facility] SIMMS subcutaneou subcutaneou s syringe s syringe zolpidem 5 zolpidem 5 No [place] Unknown Unknown mg tablet mg tablet [facility] SIMMS cyanocobala cyanocobala No [place] Unknown Unknown min (vit min (vit [facility] SIMMS BFaisal12) 1,000 B-12) 1,000 mcg tablet mcg tablet amLODIPine amLODIPine No [place] Unknown Unknown 5 mg tablet 5 mg tablet [facility] SIMMS benzonatate benzonatate No [place] Unknown Unknown 100 mg 100 mg [facility] SIMMS capsule capsule furosemide furosemide 2018-02 Yes Brand Unknown Unknown 20 mg 20 mg 2-20 MDDonaldo tablet tablet cephALEXin cephALEXin No [place] Unknown Unknown 250 mg 250 mg [facility] SIMMS capsule capsule FLUoxetine FLUoxetine No [place] Unknown Unknown 10 mg 10 mg [facility] SIMMS capsule capsule amiodarone amiodarone 2018-02 Yes [place] Unknown Unknown 200 mg 200 mg 2-20 [facility] SIMMS tablet tablet magnesium magnesium 2018-02 Yes [place] Unknown Unknown oxide 400 oxide 400 2-20 [facility] SIMMS mg (241.3 mg (241.3 mg mg magnesium) magnesium) tablet tablet Protonix 40 Protonix 40 2018-02 Yes [place] Unknown Unknown mg mg 2-20 [facility] SIMMS tablet,kathe tablet,kathe yed release yed release Vitamin D3 Vitamin D3 2018-02 Yes [place] Unknown Unknown 1,000 unit 1,000 unit 2-20 [facility] SIMMS capsule capsule ferrous ferrous 2018-02 Yes [place] Unknown Unknown sulfate 325 sulfate 325 2-20 [...]
--- OUTSIDE RECORDS SUMMARY | 2019-03-07 00:08 | XMS REPORT ---
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 Hyperlipide Hyperlipide Diagnosis Active Lizabeth eclia, celia, Carrier RN unspecified unspecified Sick sinus [...] Pain Mgmt Active 2018-02 [facility]y pain 04-11 [place] 12:25: [id number] 00 Cardio edema Cardiovasc Active 2018-02 [place] ular 04-11 [place] 12:25: [id number] 00 Respiratory lung sounds Respirator Active 2018-02 [place] deficit y 04-11 [place] 12:25: [id number] 00 Respiratory dyspnea Respirator Active 2018-02 [place] present y 04-11 [place] 12:25: [id number] 00 Endo/Hansel diabetic Endo/Hansel Active 2018-02 [facility] foot care 04-11 [place] 12:25: [id number] 00 Sensory impaired Sensory Active 2018-02 [place] hearing 04-11 [place] 12:25: [id number] 00 Integument skin Integument Active 2018-02 Caty integrity 04-11 [place] risk 12:25: [id number] 00 Nutrition nutritional Nutrition Active 2018-02 [place] restriction 04-11 [place] s 12:25: [id number] 00 Elimination urinary Eliminatio Active 2018-02 [place] incontinenc n 04-11 [place] e 12:25: [id number] 00 Elimination bowel Eliminatio Active 2018-02 [place] incontinenc n 04-11 [place] e 12:25: [id number] 00 Neuro confusion Neuro/Emot Active 2018-02 [facility] present ion 04-11 [place] 12:25: [id number] 00 Neuro impaired Neuro/Emot Active 2018-02 [place] decision-ma ion 04-11 [place] winnie 12:25: [id number] 00 Neuro memory Neuro/Emot Active 2018-02 [place] deficit ion 04-11 [place] needing 12:25: [id number] supervision 00 Activity ADL Activity Active 2018-02 [place] assistance 04-11 [place] required 12:25: [id number] 00 Activity self-care Activity Active 2018-02 [place] deficit 04-11 [place] 12:25: [id number] 00 Safety structural Safety Active 2018-02 Caty barriers 04-11 [place] present 12:25: [id number] 00 Safety cannot be Safety Active 2018-02 Caty left alone 04-11 [place] 12:25: [id number] 00 Safety fall risk Safety Active 2018-02 Caty factor 04-11 [place] present 12:25: [id number] 00 Safety risk for Safety Active 2018-02 Caty hospitaliza 04-11 [place] tion 12:25: [id number] 00 Medication oral med Meds Active 2018-02 Caty assistance 04-11 [place] required 12:25: [id number] 00 Musculoskel transfer Musculoske Resolve 2018-022019-02-21 Caty etal assistance letal d 04-11 16:00:00 [place] required 12:25: [id number] 00 Musculoskel requires Musculoske Resolve 2018-022019-02-21 [facility]y etal human letal d 04-11 16:00:00 [place] assist to 12:25: [id number] leave home 00 Cardio hypertensio Cardiovasc Active [...] alone for 2-30 [place] only short 14:30: [id number] periods 00 Allergies, Adverse Reactions, Alerts Allergy Name Allergy Status Severity Reaction(s) Onset Inactive Treating Comments Type Date Date Clinician amoxicillin Unknown Active Unknown Reaction Mesha Unknown 5-10 (Ni) Altagracia [id number] clavulanic Unknown Active Unknown Reaction Mesha acid Unknown 5-10 (Ni) Altagracia [id number] hydroxyzine Unknown Active Unknown Reaction Mesha Unknown 5-10 (Ni) Altagracia [id number] IVP dye Unknown Active Unknown Reaction Mesha Unknown 5-10 (Ni) Altagracia [id number] oxycodone Unknown Active Unknown Reaction Mesha Unknown 5-10 (Ni) Altagracia [id number] Medications Ordered Filled Start Stop Current Ordering Indication Dosage Frequency Signature Comments Components Medication Medication Date Date Medication? Clinician (SIG) Name Name cyanocobala cyanocobala 2018-02- Yes [place] Unknown Unknown min (vit min (vit 04-11 [facility] SIMMS ) 2,500 ) 2,500 mcg mcg sublingual sublingual tablet tablet folic acid folic acid 2018-02- Yes [place] Unknown Unknown 1 mg tablet 1 mg tablet 04-11 [facility] SIMMS lisinopril lisinopril No [place] 2 Unknown 10 10 [facility] SIMMS tablets mg-hydrochl mg-hydrochl orothiazide orothiazide 12.5 mg 12.5 mg tablet tablet metHOTREXat metHOTREXat No [place] 10 mg Unknown e sodium e sodium [facility] SIMMS 2.5 mg 2.5 mg tablet tablet metoprolol metoprolol No [place] Unknown Unknown tartrate 50 tartrate 50 [facility] SIMMS mg tablet mg tablet pantoprazol pantoprazol No [place] Unknown Unknown e 40 mg e 40 mg [facility] SIMMS tablet,kathe tablet,kathe yed release yed release rOPINIRole rOPINIRole 2018-02 Yes [place] Unknown Unknown 2 mg tablet 2 mg tablet 04-11 [facility] SIMMS Xarelto 20 Xarelto 20 No [place] Unknown Unknown mg tablet mg tablet [facility] SIMMS atorvastati atorvastati No [place] Unknown Unknown n 40 mg n 40 mg [facility] SIMMS tablet tablet losartan 50 losartan 50 2018-02 Yes [place] Unknown Unknown mg tablet mg tablet 04-11 [facility] SIMMS denosumab denosumab No [place] Unknown Unknown 60 mg/mL 60 mg/mL [facility] SIMMS subcutaneou subcutaneou s syringe s syringe zolpidem 5 zolpidem 5 No [place] Unknown Unknown mg tablet mg tablet [facility] SIMMS cyanocobala cyanocobala No [place] Unknown Unknown min (vit min (vit Kanu SIMMS B-12) 1,000 B-12) 1,000 mcg tablet mcg tablet amLODIPine amLODIPine No [place] Unknown Unknown 5 mg tablet 5 mg tablet Kan[facility] SIMMS benzonatate benzonatate No [place] Unknown Unknown 100 mg 100 mg [facility] SIMMS capsule capsule furosemide furosemide 2018-02 Yes Brand Unknown Unknown 20 mg 20 mg 2- ,Donaldo tablet tablet cephALEXin cephALEXin No [place] Unknown Unknown 250 mg 250 mg Kanu SIMMS capsule capsule FLUoxetine FLUoxetine No [place] Unknown Unknown 10 mg 10 mg [facility] SIMMS capsule capsule amiodarone amiodarone 2018-02 Yes [place] Unknown Unknown 200 mg 200 mg 04-11 [facility] SIMMS tablet tablet magnesium magnesium 2018-02 Yes [place] Unknown Unknown oxide 400 oxide 400 04-11 [facility] SIMMS mg (241.3 mg (241.3 mg mg magnesium) magnesium) tablet tablet Protonix 40 Protonix 40 2018-02 Yes [place] Unknown Unknown mg mg 04-11 [facility] SIMMS tablet,kathe tablet,kathe yed release yed release Vitamin D3 Vitamin D3 2018-02 Yes [place] Unknown Unknown 1,000 unit 1,000 unit 04-11 [facility] SIMMS capsule capsule ferrous ferrous 2018-02 Yes [place] Unknown Unknown sulfate 325 sulfate 325 04-11 [facility] SIMMS mg (65 mg mg (65 mg iron) iron) tablet tablet cholecalcif cholecalcif 2018-02 Yes [place] Unknown Unknown dario dario Kanu SIMMS (vitamin (vitamin D3) 5,000 D3) 5,000 unit tablet unit tablet pantoprazol pantoprazol 2018-02 Yes [place] Unknown Unknown e 40 mg e 40 mg Kanu SIMMS tablet,kathe tablet,kathe yed release yed release Ambien 5 mg Ambien 5 mg 2018-02- Yes [place] Unknown Unknown tablet tablet 02-18 [facility] SIMMS metoprolol metoprolol 2018-02 Yes [place] Unknown Unknown 04-18 [facility] SIMMS Tylenol 325 Tylenol 325 2018-02 Yes [place] Unknown Unknown mg tablet mg tablet 04-18 [...]
--- OUTSIDE RECORDS SUMMARY | 2019-03-07 00:08 | XMS REPORT ---
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 [...] Pain Mgmt Active 2018-02 Caty pain 04-11 [place] 12:25: [id number] 00 Cardio edema Cardiovasc Active 2018-02 Caty ular 04-11 [place] 12:25: [id number] 00 Respiratory lung sounds Respirator Active 2018-02 Caty deficit y 04-11 [place] 12:25: [id number] 00 Respiratory dyspnea Respirator Active 2018-02 Caty present y 04-11 [place] 12:25: [id number] 00 Endo/Hansel diabetic Endo/Hansel Active 2018-02 Caty foot care 04-11 [place] 12:25: [id number] 00 Sensory impaired Sensory Active 2018-02 Caty hearing 04-11 [place] 12:25: [id number] 00 Integument skin Integument Active 2018-02 Caty integrity 04-11 [place] risk 12:25: [id number] 00 Nutrition nutritional Nutrition Active 2018-02 Caty restriction 04-11 [place] s 12:25: [id number] 00 Elimination urinary Eliminatio Active 2018-02 Caty incontinenc n 04-11 [place] e 12:25: [id number] 00 Elimination bowel Eliminatio Active 2018-02 Caty incontinenc n 04-11 [place] e 12:25: [id number] 00 Neuro confusion Neuro/Emot Active 2018-02 Caty present ion 04-11 [place] 12:25: [id number] 00 Neuro impaired Neuro/Emot Active 2018-02 Caty decision-ma ion 04-11 [place] winnie 12:25: [id number] 00 Neuro memory Neuro/Emot Active 2018-02 Caty deficit ion 04-11 [place] needing 12:25: [id number] supervision 00 Activity ADL Activity Active 2018-02 Caty assistance 04-11 [place] required 12:25: [id number] 00 Activity self-care Activity Active 2018-02 Caty deficit 04-11 [place] 12:25: [id number] 00 Safety structural Safety Active 2018-02 Caty barriers 04-11 [place] present 12:25: [id number] 00 Safety cannot be Safety Active 2018-02 Caty left alone 04-11 [place] 12:25: [id number] 00 Safety fall risk Safety Active 2018-02 Caty factor 04-11 [place] present 12:25: [id number] 00 Safety risk for Safety Active 2018-02 Caty hospitaliza 04-11 [place] tion 12:25: [id number] 00 Medication oral med Meds Active 2018-02 Caty assistance 04-11 [place] required 12:25: [id number] 00 Musculoskel transfer Musculoske Active 2018-02 Caty etal assistance letal 04-11 [place] required 12:25: [id number] 00 Musculoskel requires Musculoske Active 2018-02 Caty etal human letal 04-11 [place] assist to 12:25: [id number] leave home 00 Allergies, Adverse Reactions, Alerts Allergy Name Allergy Status Severity Reaction(s) Onset Inactive Treating Comments Type Date Date Clinician amoxicillin Unknown Active Unknown Reaction Mesha Unknown 5-10 (Ni) Altagracia [id number] clavulanic Unknown Active Unknown Reaction Mesha acid Unknown 5-10 (Ni) Altagracia [id number] hydroxyzine Unknown Active Unknown Reaction Mesha Unknown 5-10 (Ni) Altagracia [id number] IVP dye Unknown Active Unknown Reaction Mesha Unknown 5-10 (Ni) Altagracia [id number] oxycodone Unknown Active Unknown Reaction Mesha Unknown 5-10 (Ni) Altagracia [id number] Medications Ordered Filled Start Stop Current Ordering Indication Dosage Frequency Signature Comments Components Medication Medication Date Date Medication? Clinician (SIG) Name Name cyanocobala cyanocobala 2018-02 Yes [place] Unknown Unknown min (vit min (vit 2- [facility] SIMMS B-12) 2,500 B-12) 2,500 mcg mcg sublingual sublingual tablet tablet folic acid folic acid 2018-02 Yes [place] Unknown Unknown 1 mg tablet 1 mg tablet 04-11 [facility] SIMMS lisinopril lisinopril No [place] 2 Unknown 10 10 [facility] SIMMS tablets mg-hydrochl mg-hydrochl orothiazide orothiazide 12.5 mg 12.5 mg tablet tablet metHOTREXat metHOTREXat No [place] 10 mg Unknown e sodium e sodium [facility] SIMMS 2.5 mg 2.5 mg tablet tablet metoprolol metoprolol No [place] Unknown Unknown tartrate 50 tartrate 50 [facility] SIMMS mg tablet mg tablet pantoprazol pantoprazol No [place] Unknown Unknown e 40 mg e 40 mg [facility] SIMMS tablet,kathe tablet,kathe yed release yed release rOPINIRole rOPINIRole 2018-02 Yes [place] Unknown Unknown 2 mg tablet 2 mg tablet 2-20 [facility] SIMMS Xarelto 20 Xarelto 20 No [place] Unknown Unknown mg tablet mg tablet [facility] SIMMS atorvastati atorvastati No [place] Unknown Unknown n 40 mg n 40 mg [facility] SIMMS tablet tablet losartan 50 losartan 50 2018-02 Yes [place] Unknown Unknown mg tablet mg tablet 2-20 [facility] SIMMS denosumab denosumab No [place] Unknown Unknown 60 mg/mL 60 mg/mL [facility] SIMMS subcutaneou subcutaneou s syringe s syringe zolpidem 5 zolpidem 5 No [place] Unknown Unknown mg tablet mg tablet [facility] SIMMS cyanocobala cyanocobala No [place] Unknown Unknown min (vit min (vit [facility] SIMMS B-12) 1,000 B-12) 1,000 mcg tablet mcg tablet amLODIPine amLODIPine No [place] Unknown Unknown 5 mg tablet 5 mg tablet [facility] SIMMS benzonatate benzonatate No [place] Unknown Unknown 100 mg 100 mg [facility] SIMMS capsule capsule furosemide furosemide 2018-02 Yes Brand Unknown Unknown 20 mg 20 mg 2-20 MDDonaldo tablet tablet cephALEXin cephALEXin No [place] Unknown Unknown 250 mg 250 mg [facility] SIMMS capsule capsule FLUoxetine FLUoxetine No [place] Unknown Unknown 10 mg 10 mg [facility] SIMMS capsule capsule amiodarone amiodarone 2018-02 Yes [place] Unknown Unknown 200 mg 200 mg 2-20 [facility] SIMMS tablet tablet magnesium magnesium 2018-02 Yes [place] Unknown Unknown oxide 400 oxide 400 2-20 [facility] SIMMS mg (241.3 mg (241.3 mg mg magnesium) magnesium) tablet tablet Protonix 40 Protonix 40 2018-02 Yes [place] Unknown Unknown mg mg 2-20 [facility] SIMMS tablet,kathe tablet,kathe yed release yed release Vitamin D3 Vitamin D3 2018-02 Yes [place] Unknown Unknown 1,000 unit 1,000 unit 2-20 [facility] SIMMS capsule capsule ferrous ferrous 2018-02 Yes [place] Unknown Unknown sulfate 325 sulfate 325 2-20 [...]
--- OUTSIDE RECORDS SUMMARY | 2019-03-07 00:08 | XMS REPORT ---
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 [...] Pain Mgmt Active 2018-02 [place] pain 04-11 [place] 12:25: [id number] 00 Cardio edema Cardiovasc Active 2018-02 [place] ular 04-11 [place] 12:25: [id number] 00 Respiratory lung sounds Respirator Active 2018-02 [place] deficit y 04-11 [place] 12:25: [id number] 00 Respiratory dyspnea Respirator Active 2018-02 Caty present y 04-11 [place] 12:25: [id number] 00 Endo/Hansel diabetic Endo/Hansel Active 2018-02 Caty foot care 04-11 [place] 12:25: [id number] 00 Sensory impaired Sensory Active 2018-02 Cat[place] hearing 04-11 [place] 12:25: [id number] 00 Integument skin Integument Active 2018-02 Caty integrity 04-11 [place] risk 12:25: [id number] 00 Nutrition nutritional Nutrition Active 2018-02 [place] restriction 04-11 [place] s 12:25: [id number] 00 Elimination urinary Eliminatio Active 2018-02 Caty incontinenc n 04-11 [place] e 12:25: [id number] 00 Elimination bowel Eliminatio Active 2018-02 Caty incontinenc n 04-11 [place] e 12:25: [id number] 00 Neuro confusion Neuro/Emot Active 2018-02 Caty present ion 04-11 [place] 12:25: [id number] Neuro impaired Neuro/Emot Active 2018-02 Caty decision-ma ion 04-11 [place] winnie 12:25: [id number] 00 Neuro memory Neuro/Emot Active 2018-02 [place] deficit ion 04-11 [place] needing 12:25: [id number] supervision 00 Activity ADL Activity Active 2018-02 Caty assistance 04-11 [place] required 12:25: [id number] 00 Activity self-care Activity Active 2018-02 Caty deficit 04-11 [place] 12:25: [id number] 00 Safety structural Safety Active 2018-02 Caty barriers 04-11 [place] present 12:25: [id number] 00 Safety cannot be Safety Active 2018-02 Caty left alone 04-11 [place] 12:25: [id number] 00 Safety fall risk Safety Active 2018-02 Caty factor 04-11 [place] present 12:25: [id number] 00 Safety risk for Safety Active 2018-02 Caty hospitaliza 04-11 [place] tion 12:25: [id number] 00 Medication oral med Meds Active 2018-02 Caty assistance 04-11 [place] required 12:25: [id number] 00 Musculoskel transfer Musculoske Active 2018-02 [facility] etal assistance letal 04-11 [place] required 12:25: [id number] 00 Musculoskel requires Musculoske Active 2018-02 Caty etal human letal 04-11 [place] assist to 12:25: [id number] leave home 00 Cardio hypertensio Cardiovasc Active [...] Unknown Reaction Mesha Unknown 5-10 (Ni) Altagracia [id number] clavulanic Unknown Active Unknown Reaction Mesha acid Unknown 5-10 (Ni) Altagracia [id number] hydroxyzine Unknown Active Unknown Reaction Mesha Unknown 5-10 (Ni) Altagracia [id number] IVP dye Unknown Active Unknown Reaction Mesha Unknown 5-10 (Ni) Altagracia [id number] oxycodone Unknown Active Unknown Reaction Mesha Unknown 5-10 (Ni) Altagracia [id number] Medications Ordered Filled Start Stop Current Ordering Indication Dosage Frequency Signature Comments Components Medication Medication Date Date Medication? Clinician (SIG) Name Name rodolfo reynolds 2018-02 Yes [place] Unknown Unknown min (vit min (vit 2-20 [facility] SIMMS B-12) 2,500 B-12) 2,500 mcg mcg sublingual sublingual tablet tablet folic acid folic acid 2018-02 Yes [place] Unknown Unknown 1 mg tablet 1 mg tablet 2-20 [facility] SIMMS lisinopril lisinopril No [place] 2 Unknown 10 10 [facility] SIMMS tablets mg-hydrochl mg-hydrochl orothiazide orothiazide 12.5 mg 12.5 mg tablet tablet metHOTREXat metHOTREXat No [place] 10 mg Unknown e sodium e sodium [facility] SIMMS 2.5 mg 2.5 mg tablet tablet metoprolol metoprolol No [place] Unknown Unknown tartrate 50 tartrate 50 [facility] SIMMS mg tablet mg tablet pantoprazol pantoprazol No [place] Unknown Unknown e 40 mg e 40 mg [facility] SIMMS tablet,kathe tablet,kathe yed release yed release rOPINIRole rOPINIRole 2018-02 Yes [place] Unknown Unknown 2 mg tablet 2 mg tablet 2-20 [facility] SIMMS Xarelto 20 Xarelto 20 No [place] Unknown Unknown mg tablet mg tablet [facility] SIMMS atorvastati atorvastati No [place] Unknown Unknown n 40 mg n 40 mg [facility] SIMMS tablet tablet losartan 50 losartan 50 2018-02 Yes [place] Unknown Unknown mg tablet mg tablet 2-20 [facility] SIMMS denosumab denosumab No [place] Unknown Unknown 60 mg/mL 60 mg/mL [facility] SIMMS subcutaneou subcutaneou s syringe s syringe zolpidem 5 zolpidem 5 No [place] Unknown Unknown mg tablet mg tablet [facility] SIMMS cyanocobala cyanocobala No [place] Unknown Unknown min (vit min (vit Kanu SIMMS12) 1,000 B-12) 1,000 mcg tablet mcg tablet amLODIPine amLODIPine No [place] Unknown Unknown 5 mg tablet 5 mg tablet MDKanu benzonatate benzonatate No [place] Unknown Unknown 100 mg 100 mg MD,Kanu capsule capsule furosemide furosemide 2018-02 Yes Brand Unknown Unknown 20 mg 20 mg 2-20 MD,Donaldo tablet tablet cephALEXin cephALEXin No [place] Unknown Unknown 250 mg 250 mg MD,Kanu capsule capsule FLUoxetine FLUoxetine No [place] Unknown Unknown 10 mg 10 mg MD,Kanu capsule capsule amiodarone amiodarone 2018-02 Yes [place] Unknown Unknown 200 mg 200 mg 2-20 MD,Kanu tablet tablet magnesium magnesium 2018-02 Yes [place] Unknown Unknown oxide 400 oxide 400 2-20 MD,Kanu mg (241.3 mg (241.3 mg mg magnesium) magnesium) tablet tablet Protonix 40 Protonix 40 2018-02 Yes [place] Unknown Unknown mg mg 2-20 MD,Kanu tablet,kathe tablet,kathe yed release yed release Vitamin D3 Vitamin D3 2018-02 Yes [place] Unknown Unknown 1,000 unit 1,000 unit 2-20 MD,Kanu capsule capsule ferrous ferrous 2018-02 Yes [place] Unknown Unknown sulfate 325 sulfate 325 2-20 [...]
--- OUTSIDE RECORDS SUMMARY | 2019-03-07 00:08 | XMS REPORT ---
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 [...] Pain Mgmt Active 2018-02 Caty pain 04-11 [place] 12:25: [id number] 00 Cardio edema Cardiovasc Active 2018-02 Caty ular 04-11 [place] 12:25: [id number] Respiratory lung sounds Respirator Active 2018-02 Caty deficit y 04-11 [place] 12:25: [id number] 00 Respiratory dyspnea Respirator Active 2018-02 Caty present y 04-11 [place] 12:25: [id number] 00 Endo/Hansel diabetic Endo/Hansel Active 2018-02 Caty foot care 04-11 [place] 12:25: [id number] 00 Sensory impaired Sensory Active 2018-02 Caty hearing 04-11 [place] 12:25: [id number] 00 Integument skin Integument Active 2018-02 Caty integrity 04-11 [place] risk 12:25: [id number] 00 Nutrition nutritional Nutrition Active 2018-02 Caty restriction 04-11 [place] s 12:25: [id number] 00 Elimination urinary Eliminatio Active 2018-02 Caty incontinenc n 04-11 [place] e 12:25: [id number] 00 Elimination bowel Eliminatio Active 2018-02 Caty incontinenc n 04-11 [place] e 12:25: [id number] 00 Neuro confusion Neuro/Emot Active 2018-02 Caty present ion 04-11 [place] 12:25: [id number] 00 Neuro impaired Neuro/Emot Active 2018-02 Caty decision-ma ion 04-11 [place] winnie 12:25: [id number] 00 Neuro memory Neuro/Emot Active 2018-02 Caty deficit ion 04-11 [place] needing 12:25: [id number] supervision 00 Activity ADL Activity Active 2018-02 Caty assistance 04-11 [place] required 12:25: [id number] Activity self-care Activity Active 2018-02 Caty deficit 04-11 [place] 12:25: [id number] 00 Safety structural Safety Active 2018-02 Caty barriers 04-11 [place] present 12:25: [id number] 00 Safety cannot be Safety Active 2018-02 Caty left alone 04-11 [place] 12:25: [id number] 00 Safety fall risk Safety Active 2018-02 Caty factor 04-11 [place] present 12:25: [id number] 00 Safety risk for Safety Active 2018-02 Caty hospitaliza 04-11 [place] tion 12:25: [id number] 00 Medication oral med Meds Active 2018-02 Caty assistance 04-11 [place] required 12:25: [id number] Musculoskel transfer Musculoske Resolve 2018-022019-02-21 Caty etal assistance letal d 04-11 16:00:00 [place] required 12:25: [id number] 00 Musculoskel requires Musculos[place] Resolve 2018-022019-02-21 Caty etal human letal d 04-11 16:00:00 [place] assist to 12:25: [id number] leave home 00 Cardio hypertensio Cardiovasc Active [...] alone for 2-30 [place] only short 14:30: [id number] periods 00 Allergies, Adverse Reactions, Alerts Allergy Name Allergy Status Severity Reaction(s) Onset Inactive Treating Comments Type Date Date Clinician amoxicillin Unknown Active Unknown Reaction Mesha Unknown 5-10 (Ni) Altagracia [id number] clavulanic Unknown Active Unknown Reaction Mesha acid Unknown 5-10 (Ni) Altag[place]ia [id number] hydroxyzine Unknown Active Unknown Reaction Mesha Unknown 5-10 (Ni) Altag[place]ia [id number] IVP dye Unknown Active Unknown Reaction Mesha Unknown 5-10 (Ni) Altag[place]ia [id number] oxycodone Unknown Active Unknown Reaction Mesha Unknown 5-10 (Ni) Altagracia [id number] Medications Ordered Filled Start Stop Current Ordering Indication Dosage Frequency Signature Comments Components Medication Medication Date Date Medication? Clinician (SIG) Name Name cyanocobala cyanocobala 2018-02- Yes [place] Unknown Unknown min (vit min (vit 04-11 [facility] ) 2,500 ) 2,500 mcg mcg sublingual sublingual tablet tablet folic acid folic acid 2018-02- Yes [place] Unknown Unknown 1 mg tablet 1 mg tablet 04-11 [facility] lisinopril lisinopril No [place] 2 Unknown 10 10 [facility] tablets mg-hydrochl mg-hydrochl orothiazide orothiazide 12.5 mg 12.5 mg tablet tablet metHOTREXat metHOTREXat No [place] 10 mg Unknown e sodium e sodium [facility] 2.5 mg 2.5 mg tablet tablet metoprolol metoprolol No [place] Unknown Unknown tartrate 50 tartrate 50 [facility] mg tablet mg tablet pantoprazol pantoprazol No [place] Unknown Unknown e 40 mg e 40 mg [facility] tablet,kathe tablet,kathe yed release yed release rOPINIRole rOPINIRole 2018-02 Yes [place] Unknown Unknown 2 mg tablet 2 mg tablet 04-11 [facility] Xarelto 20 Xarelto 20 No [place] Unknown Unknown mg tablet mg tablet [facility] atorvastati atorvastati No [place] Unknown Unknown n 40 mg n 40 mg [facility] tablet tablet losartan 50 losartan 50 2018-02 Yes [place] Unknown Unknown mg tablet mg tablet 04-11 [facility] denosumab denosumab No [place] Unknown Unknown 60 mg/mL 60 mg/mL [facility] subcutaneou subcutaneou s syringe s syringe zolpidem 5 zolpidem 5 No [place] Unknown Unknown mg tablet mg tablet [facility] cyanocobala cyanocobala No [place] Unknown Unknown min (vit min (vit [facility] B-12) 1,000 B-12) 1,000 mcg tablet mcg tablet amLODIPine amLODIPine No [place] Unknown Unknown 5 mg tablet 5 mg tablet [facility] benzonatate benzonatate No [place] Unknown Unknown 100 mg 100 mg [facility] capsule capsule furosemide furosemide 2018-02 Yes Brand Unknown Unknown 20 mg 20 mg 2- ,Donaldo tablet tablet cephALEXin cephALEXin No [place] Unknown Unknown 250 mg 250 mg [facility] capsule capsule FLUoxetine FLUoxetine No [place] Unknown Unknown 10 mg 10 mg [facility] capsule capsule amiodarone amiodarone 2018-02 Yes [place] Unknown Unknown 200 mg 200 mg 04-11 [facility] tablet tablet magnesium magnesium 2018-02 Yes [place] Unknown Unknown oxide 400 oxide 400 04-11 [facility] mg (241.3 mg (241.3 mg mg magnesium) magnesium) tablet tablet Protonix 40 Protonix 40 2018-02 Yes [place] Unknown Unknown mg mg 04-11 [facility] tablet,kathe tablet,kathe yed release yed release Vitamin D3 Vitamin D3 2018-02 Yes [place] Unknown Unknown 1,000 unit 1,000 unit 04-11 [facility] capsule capsule ferrous ferrous 2018-02 Yes [place] Unknown Unknown sulfate 325 sulfate 325 04-11 [facility] mg (65 mg mg (65 mg iron) iron) tablet tablet cholecalcif cholecalcif 2018-02 Yes [place] Unknown Unknown dario dario [facility] (vitamin (vitamin D3) 5,000 D3) 5,000 unit tablet unit tablet pantoprazol pantoprazol 2018-02 Yes [place] Unknown Unknown e 40 mg e 40 mg [facility] tablet,kathe tablet,kathe yed release yed release Ambien 5 mg Ambien 5 mg 2018-02- Yes [place] Unknown Unknown tablet tablet 02-18 [facility] metoprolol metoprolol 2018-02 Yes [place] Unknown Unknown 04-18 [facility] Tylenol 325 Tylenol 325 2018-02 Yes [place] Unknown Unknown mg tablet mg tablet 04-18 [...]
--- OUTSIDE RECORDS SUMMARY | 2019-03-07 00:08 | XMS REPORT ---
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 [...] Pain Mgmt Active 2018-02 Caty pain 04-11 [place] 12:25: [id number] 00 Cardio edema Cardiovasc Active 2018-02 Caty ular 04-11 [place] 12:25: [id number] 00 Respiratory lung sounds Respirator Active 2018-02 Caty deficit y 04-11 [place] 12:25: [id number] 00 Respiratory dyspnea Respirator Active 2018-02 Caty present y 04-11 [place] 12:25: [id number] 00 Endo/Hansel diabetic Endo/Hansel Active 2018-02 Caty foot care 04-11 [place] 12:25: [id number] 00 Sensory impaired Sensory Active 2018-02 Caty hearing 04-11 [place] 12:25: [id number] 00 Integument skin Integument Active 2018-02 Caty integrity 04-11 [place] risk 12:25: [id number] 00 Nutrition nutritional Nutrition Active 2018-02 Caty restriction 04-11 [place] s 12:25: [id number] 00 Elimination urinary Eliminatio Active 2018-02 Caty incontinenc n 04-11 [place] e 12:25: [id number] 00 Elimination bowel Eliminatio Active 2018-02 Caty incontinenc n 04-11 [place] e 12:25: [id number] 00 Neuro confusion Neuro/Emot Active 2018-02 Caty present ion 04-11 [place] 12:25: [id number] 00 Neuro impaired Neuro/Emot Active 2018-02 Caty decision-ma ion 04-11 [place] winnie 12:25: [id number] 00 Neuro memory Neuro/Emot Active 2018-02 Caty deficit ion 04-11 [place] needing 12:25: [id number] supervision 00 Activity ADL Activity Active 2018-02 Caty assistance 04-11 [place] required 12:25: [id number] 00 Activity self-care Activity Active 2018-02 Caty deficit 04-11 [place] 12:25: [id number] 00 Safety structural Safety Active 2018-02 Caty barriers 04-11 [place] present 12:25: [id number] 00 Safety cannot be Safety Active 2018-02 Caty left alone 04-11 [place] 12:25: [id number] 00 Safety fall risk Safety Active 2018-02 Caty factor 04-11 [place] present 12:25: [id number] 00 Safety risk for Safety Active 2018-02 Caty hospitaliza 04-11 [place] tion 12:25: [id number] 00 Medication oral med Meds Active 2018-02 Caty assistance 04-11 [place] required 12:25: [id number] 00 Musculoskel transfer Musculoske Active 2018-02 Caty etal assistance letal 04-11 [place] required 12:25: [id number] 00 Musculoskel requires Musculoske Active 2018-02 Caty etal human letal 04-11 [place] assist to 12:25: [id number] leave home 00 Allergies, Adverse Reactions, Alerts Allergy Name Allergy Status Severity Reaction(s) Onset Inactive Treating Comments Type Date Date Clinician amoxicillin Unknown Active Unknown Reaction Mesha Unknown 5-10 (Ni) Altagracia [id number] clavulanic Unknown Active Unknown Reaction Mesha acid Unknown 5-10 (Ni) Altagracia [id number] hydroxyzine Unknown Active Unknown Reaction Mesha Unknown 5-10 (Ni) Altagracia [id number] IVP dye Unknown Active Unknown Reaction Mesha Unknown 5-10 (Ni) Altagracia [id number] oxycodone Unknown Active Unknown Reaction Mesha Unknown 5-10 (Ni) Altagracia [id number] Medications Ordered Filled Start Stop Current Ordering Indication Dosage Frequency Signature Comments Components Medication Medication Date Date Medication? Clinician (SIG) Name Name cyanocobala cyanocobala 2018-02 Yes [place] Unknown Unknown min (vit min (vit 2- [facility] B-12) 2,500 B-12) 2,500 mcg mcg sublingual sublingual tablet tablet folic acid folic acid 2018-02 Yes [place] Unknown Unknown 1 mg tablet 1 mg tablet 04-11 [facility] lisinopril lisinopril No [place] 2 Unknown 10 10 [facility] tablets mg-hydrochl mg-hydrochl orothiazide orothiazide 12.5 mg 12.5 mg tablet tablet metHOTREXat metHOTREXat No [place] 10 mg Unknown e sodium e sodium [facility] 2.5 mg 2.5 mg tablet tablet metoprolol metoprolol No [place] Unknown Unknown tartrate 50 tartrate 50 [facility] mg tablet mg tablet pantoprazol pantoprazol No [place] Unknown Unknown e 40 mg e 40 mg [facility] tablet,kathe tablet,kathe yed release yed release rOPINIRole rOPINIRole 2018-02 Yes [place] Unknown Unknown 2 mg tablet 2 mg tablet 2-20 [facility] Xarelto 20 Xarelto 20 No [place] Unknown Unknown mg tablet mg tablet [facility] atorvastati atorvastati No [place] Unknown Unknown n 40 mg n 40 mg [facility]MS tablet tablet losartan 50 losartan 50 2018-02 Yes [place] Unknown Unknown mg tablet mg tablet 2-20 [facility] denosumab denosumab No [place] Unknown Unknown 60 mg/mL 60 mg/mL [facility] subcutaneou subcutaneou s syringe s syringe zolpidem 5 zolpidem 5 No [place] Unknown Unknown mg tablet mg tablet [facility] cyanocobala cyanocobala No [place] Unknown Unknown min (vit min (vit [facility] B-12) 1,000 B-12) 1,000 mcg tablet mcg tablet amLODIPine amLODIPine No [place] Unknown Unknown 5 mg tablet 5 mg tablet [facility] benzonatate benzonatate No [place] Unknown Unknown 100 mg 100 mg [facility] capsule capsule furosemide furosemide 2018-02 Yes Brand Unknown Unknown 20 mg 20 mg 2-20 MDDonaldo tablet tablet cephALEXin cephALEXin No [place] Unknown Unknown 250 mg 250 mg [facility] capsule capsule FLUoxetine FLUoxetine No [place] Unknown Unknown 10 mg 10 mg [facility] capsule capsule amiodarone amiodarone 2018-02 Yes [place] Unknown Unknown 200 mg 200 mg 2-20 [facility] tablet tablet magnesium magnesium 2018-02 Yes [place] Unknown Unknown oxide 400 oxide 400 2-20 [facility] mg (241.3 mg (241.3 mg mg magnesium) magnesium) tablet tablet Protonix 40 Protonix 40 2018-02 Yes [place] Unknown Unknown mg mg 2-20 [facility] tablet,kathe tablet,kathe yed release yed release Vitamin D3 Vitamin D3 2018-02 Yes [place] Unknown Unknown 1,000 unit 1,000 unit 2-20 [facility] capsule capsule ferrous ferrous 2018-02 Yes [place] Unknown Unknown sulfate 325 sulfate 325 2-20 [...]
--- OUTSIDE RECORDS SUMMARY | 2019-03-07 00:09 | XMS REPORT ---
:1935 Author Organization [facility] Care Team Providers Name Role Phone Unavailable Unavailable Unavailable Problems Condition Condition Condition Status Onset Resolution Last Treating Comments Name Details Category Date Date Treatment Clinician Date Unspecified Unspecified Diagnosis Active 2018-02 Josette fracture of fracture of 2-17 [place] right right acetabulum, acetabulum, subsequent subsequent encounter encounter for for fracture fracture with with routine routine healing healing Allergies, Adverse Reactions, Alerts Allergy Name Allergy Status Severity Reaction(s) Onset Inactive Treating Comments Type Date Date Clinician amoxicillin Unknown Active Unknown Reaction Mesha Unknown 5-10 (Ni) Altagracia [id number] clavulanic Unknown Active Unknown Reaction Mesha acid Unknown 5-10 (Ni) Altagracia [id number] hydroxyzine Unknown Active Unknown Reaction Mesha Unknown 5-10 (Ni) Altagracia [id number] IVP dye Unknown Active Unknown Reaction Mesha Unknown 5-10 (Ni) Altagracia [id number] oxycodone Unknown Active Unknown Reaction Mesha Unknown 5-10 (Ni) Altagracia [id number] Medications Ordered Filled Start Stop Current Ordering Indication Dosage Frequency Signature Comments Components Medication Medication Date Date Medication? Clinician (SIG) Name Name No Known No Known No None None None Medications Medications For This For This Patient Patient Procedures This patient has no known procedures. Results This patient has no known results.
--- OUTSIDE RECORDS SUMMARY | 2019-03-07 00:09 | XMS REPORT ---
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 acetabulum, acetabulum, subsequent subsequent encounter encounter for for fracture fracture with with routine routine healing healing Allergies, Adverse Reactions, Alerts Allergy Name Allergy Status Severity Reaction(s) Onset Inactive Treating Comments Type Date Date Clinician amoxicillin Unknown Active Unknown Reaction Mesha Unknown 5-10 (Ni) Altagracia [id number] clavulanic Unknown Active Unknown Reaction Mesha acid Unknown 5-10 (Ni) Altagracia [id number] hydroxyzine Unknown Active Unknown Reaction Mesha Unknown 5-10 (Ni) Altagracia [id number] IVP dye Unknown Active Unknown Reaction Mesha Unknown 5-10 (Ni) Altagracia [id number] oxycodone Unknown Active Unknown Reaction Mesha Unknown 5-10 (Ni) Altagracia [id number] Medications Ordered Filled Start Stop Current Ordering Indication Dosage Frequency Signature Comments Components Medication Medication Date Date Medication? Clinician (SIG) Name Name No Known No Known No None None None Medications Medications For This For This Patient Patient Procedures This patient has no known procedures. Results This patient has no known results.
--- OUTSIDE RECORDS SUMMARY | 2019-03-07 00:09 | XMS REPORT ---
:1935 Author Organization [facility] Care Team Providers Name Role Phone Unavailable [...] Pain Mgmt Active 2018-02 Caty pain 04-11 [place] 12:25: [id number] 00 Cardio edema Cardiovasc Active 2018-02 Caty ular 04-11 [place] 12:25: [id number] 00 Respiratory lung sounds Respirator Active 2018-02 Caty deficit y 04-11 [place] 12:25: [id number] 00 Respiratory dyspnea Respirator Active 2018-02 Caty present y 04-11 [place] 12:25: [id number] 00 Endo/Hansel diabetic Endo/Hansel Active 2018-02 [place] foot care 04-11 [place] 12:25: [id number] 00 Sensory impaired Sensory Active 2018-02 Caty hearing 04-11 [place] 12:25: [id number] 00 Integument skin Integument Active 2018-02 Caty integrity 04-11 [place] risk 12:25: [id number] 00 Nutrition nutritional Nutrition Active 2018-02 Caty restriction 04-11 [place] s 12:25: [id number] 00 Elimination urinary Eliminatio Active 2018-02 Caty incontinenc n 04-11 [place] e 12:25: [id number] 00 Elimination bowel Eliminatio Active 2018-02 Caty incontinenc n 04-11 [place] e 12:25: [id number] 00 Neuro confusion Neuro/Emot Active 2018-02 Caty present ion 04-11 [place] 12:25: [id number] 00 Neuro impaired Neuro/Emot Active 2018-02 Caty decision-ma ion 04-11 [place] winnie 12:25: [id number] 00 Neuro memory Neuro/Emot Active 2018-02 Caty deficit ion 04-11 [place] needing 12:25: [id number] supervision 00 Activity ADL Activity Active 2018-02 Caty assistance 04-11 [place] required 12:25: [id number] 00 Activity self-care Activity Active 2018-02 Caty deficit 04-11 [place] 12:25: [id number] 00 Safety structural Safety Active 2018-02 Caty barriers 04-11 [place] present 12:25: [id number] 00 Safety cannot be Safety Active 2018-02 Caty left alone 04-11 [place] 12:25: [id number] 00 Safety fall risk Safety Active 2018-02 Caty factor 04-11 [place] present 12:25: [id number] 00 Safety risk for Safety Active 2018-02 Caty hospitaliza 04-11 [place] tion 12:25: [id number] 00 Medication oral med Meds Active 2018-02 Caty assistance 04-11 [place] required 12:25: [id number] 00 Musculoskel transfer Musculoske Active 2018-02 Caty etal assistance letal 04-11 [place] required 12:25: [id number] 00 Musculoskel requires Musculoske Active 2018-02 Caty etal human letal 04-11 [place] assist to 12:25: [id number] leave home 00 Allergies, Adverse Reactions, Alerts Allergy Name Allergy Status Severity Reaction(s) Onset Inactive Treating Comments Type Date Date Clinician amoxicillin Unknown Active Unknown Reaction Mesha Unknown 5-10 (Ni) Altagracia [id number] clavulanic Unknown Active Unknown Reaction Mesha acid Unknown 5-10 (Ni) Altagracia [id number] hydroxyzine Unknown Active Unknown Reaction Mesha Unknown 5-10 (Ni) Altagracia [id number] IVP dye Unknown Active Unknown Reaction Mesha Unknown 5-10 (Ni) Altagracia [id number] oxycodone Unknown Active Unknown Reaction Mesha Unknown 5-10 (Ni) Altagracia [id number] Medications Ordered Filled Start Stop Current Ordering Indication Dosage Frequency Signature Comments Components Medication Medication Date Date Medication? Clinician (SIG) Name Name cyanocobala cyanocobala 2018-02 Yes [place] Unknown Unknown min (vit min (emmanuel 2-20 [facility] B-12) 2,500 B-12) 2,500 mcg mcg sublingual sublingual tablet tablet folic acid folic acid 2018-02 Yes [place] Unknown Unknown 1 mg tablet 1 mg tablet 2-20 [facility] lisinopril lisinopril No [place] 2 Unknown 10 10 [facility] tablets mg-hydrochl mg-hydrochl orothiazide orothiazide 12.5 mg 12.5 mg tablet tablet metHOTREXat metHOTREXat No [place] 10 mg Unknown e sodium e sodium [facility] 2.5 mg 2.5 mg tablet tablet metoprolol metoprolol No [place] Unknown Unknown tartrate 50 tartrate 50 [facility] mg tablet mg tablet pantoprazol pantoprazol No [place] Unknown Unknown e 40 mg e 40 mg [facility] tablet,kathe tablet,kathe yed release yed release rOPINIRole rOPINIRole 2018-02 Yes [place] Unknown Unknown 2 mg tablet 2 mg tablet 2-20 [facility] Xarelto 20 Xarelto 20 No [place] Unknown Unknown mg tablet mg tablet [facility] atorvastati atorvastati No [place] Unknown Unknown n 40 mg n 40 mg [facility] tablet tablet losartan 50 losartan 50 2018-02 Yes [place] Unknown Unknown mg tablet mg tablet 2-20 [facility] denosumab denosumab No [place] Unknown Unknown 60 mg/mL 60 mg/mL [facility] subcutaneou subcutaneou s syringe s syringe zolpidem 5 zolpidem 5 No [place] Unknown Unknown mg tablet mg tablet [facility] cyanocobala cyanocobala No [place] Unknown Unknown min (vit min (vit [facility]MS BFaisal12) 1,000 B-12) 1,000 mcg tablet mcg tablet amLODIPine amLODIPine No [place] Unknown Unknown 5 mg tablet 5 mg tablet [facility] benzonatate benzonatate No [place] Unknown Unknown 100 mg 100 mg [facility] capsule capsule furosemide furosemide 2018-02 Yes Brand Unknown Unknown 20 mg 20 mg 2-20 MDDonaldo tablet tablet cephALEXin cephALEXin No [place] Unknown Unknown 250 mg 250 mg [facility] capsule capsule FLUoxetine FLUoxetine No [place] Unknown Unknown 10 mg 10 mg [facility] capsule capsule amiodarone amiodarone 2018-02 Yes [place] Unknown Unknown 200 mg 200 mg 2-20 [facility] tablet tablet magnesium magnesium 2018-02 Yes [place] Unknown Unknown oxide 400 oxide 400 2-20 [facility] mg (241.3 mg (241.3 mg mg magnesium) magnesium) tablet tablet Protonix 40 Protonix 40 2018-02 Yes [place] Unknown Unknown mg mg 2-20 [facility] tablet,kathe tablet,kathe yed release yed release Vitamin D3 Vitamin D3 2018-02 Yes [place] Unknown Unknown 1,000 unit 1,000 unit 2-20 [facility] capsule capsule ferrous ferrous 2018-02 Yes [place] Unknown Unknown sulfate 325 sulfate 325 2-20 [...]
--- OUTSIDE RECORDS SUMMARY | 2019-03-07 00:09 | XMS REPORT | Continuity of Care Document ---
:1935 External Reference #:[id number] Author Name Carla Workman MD (transmitted by agent of provider Lucía Vega) Address [address] [place] [address] Care Team Providers Name Role Phone Kanu Bhardwaj MD - Internal Care Team Information Screening Representative Medicine Problems Active Problems Provider Date Polyneuropathy Jody Godoy M.D. Onset: 07/21/2015 Carpal tunnel syndrome Jody Godoy M.D. Onset: 07/21/2015 Localized, primary osteoarthritis of the Carla oWrkman MD Onset: 03/08/2016 shoulder region Rheumatoid arthritis Carla Workman MD Onset: 06/17/2016 Prosthetic arthroplasty of shoulder Carla Workman MD Onset: 06/17/2016 Closed fracture pubis Carla Workman MD Onset: 12/28/2018 Closed fracture of acetabulum Carla Workman MD Onset: 12/28/2018 Social History Type Date Description Comments Sex Unknown ETOH Use Denies alcohol use Tobacco Use Start: Unknown Patient has never smoked Recreational Drug Use Denies Drug Use Smoking Status Reviewed: 02/07/19 Patient has never smoked Exercise Type/Frequency Does not exercise Allergies, Adverse Reactions, Alerts Active Allergies Reaction Severity Comments Date Oxycodone 12/23/2013 Augmentin 04/20/2015 Amoxicillin 04/20/2015 Contrast Iodianted Agents 04/20/2015 Amentia 04/20/2015 Remicade hives 06/30/2016 Hydroxyzine 01/02/2019 Medications Active Medications SIG Qnty Indications Ordering Provider Date Xarelto 1 by mouth every 90tabs I48.3 Donaldo Davis, 08/22/2018 15mg Tablets day M.D. Amlodipine Besylate 1 by mouth every 30tabs Donaldo ZulmaSailaja Davis, 07/13/2018 5mg day M.D. Tablets Lasix 1 by mouth every 90tabs I25.10 Donaldo aMrtell Ryan, 07/13/2018 20mg Tablets day ( Gray M.D. [place] 40 mg 1 tablet for 3 days until tomorrow and restart 20 mg 1 po daily ) Amiodarone HCL 1 tab a day 60tabs I48.3 Donaldo ZulmaSailaja Davis, 03/28/2018 200mg M.D. Tablets Metoprolol Tartrate 1 by mouth twice Kanu Bhardwaj, 03/09/2017 a day MD 50mg Tablets Ropinirole HCL 1 at hs MorovisKanu, 02/24/2017 2mg MD Prolia 60 mg sc q6mon 60mg M81.0 Estuardo Christiansen, 02/24/2017 60mg/ml Solution LAP CUTTER TRUER OPERATOR Vitamin D3 Ultra 1 by mouth every 90caps Estuardo Christiansen, 11/29/2016 Strength day LAP CUTTER TRUER OPERATOR 5000Unit Capsules Folic Acid Take 1 Tablet By 90tabs Z79.899 Estuardo Christiansen, 07/15/2016 1mg Tablets Mouth Every LAP CUTTER TRUER OPERATOR Morning Ferrous Sulfate 1 by mouth every Unknown day 325(65Fe) mg Tablets Hydrocodone-Acetamino 1 or 2 tabs by Unknown phen mouth every 6-8 5-325mg Tablets hours as needed for pain Fluoxetine HCL Take 1 Capsule By Unknown 10mg Mouth Every Day Capsules Zolpidem Tartrate Take 1 Tablet By Unknown 5mg Mouth AT Bedtime Tablets as Needed For Sleep - Maximum Daily Dose Of 1 Per Day Pantoprazole Sodium 1 by mouth every Unknown day 40mg Tablets DR Atorvastatin Calcium 1 by mouth every Unknown day 40mg Tablets Vitamin B12 1 by mouth every Unknown 1000mcg day Tablets ER Losartan Potassium Take 1 Tablet By Unknown 50mg Mouth Every Day Tablets Ambien 1 po qhs prn Unknown 5mg Medications Administered in Office Medication SIG Qnty Indications Ordering Provider Date Prolia Injection, Denosumab, Estuardo Christiansen, LAP CUTTER TRUER OPERATOR 03/26/2018 1MG Injection Prolia Injection, Denosumab, Nurse Visit 09/22/2017 1MG Injection Prolia Injection, Denosumab, Estuardo Christiansen, LAP CUTTER TRUER OPERATOR 02/24/2017 1MG Injection Depomedrol 40MG Adriel Rice MD 02/17/2016 Injection Prolia Injection, Denosumab, Marvin Negro M.D. 01/06/2016 1MG Injection Prolia Injection, Denosumab, Nurse Visit 06/24/2015 1MG Injection Immunizations CPT Code Status Date Vaccine Reaction Lot # 51722 Given 12/19/2017 Fluzone High Dose no immediate reaction [id number] Given 01/06/2016 Influ Virus Vaccine, [id number] Quadrivalent, Split Virus, [place] [address] Given 10/03/2014 Pneumococcal Conjugate Vaccine 13 Valent For Intramuscular Use 90791 Given Unknown Pneumonia Vaccine Vital Signs Date Vital Result Comment 02/07/2019 9:14am Height 61 inches 5'1" Weight 166.00 lb Heart Rate 88 /min BP Systolic 148 mmHg BP Diastolic 72 mmHg Respiratory Rate 18 /min Body Temperature 97.6 F Pain Level 2 O2 % BldC Oximetry 98 % BMI (Body Mass Index) 31.4 kg/m2 01/02/2019 10:53am Height 61 inches 5'1" Weight 163.00 lb with shoes Heart Rate 60 /min BP Systolic Sitting 120 mmHg Lue reg cuff BP Diastolic Sitting 74 mmHg Lue reg cuff Respiratory Rate 15 /min BMI (Body Mass Index) 30.8 kg/m2 Ejection Fraction 40-45% date 07/02/18 ECHO Results Test Acquired Date Facility Test Result H/L Range Note Urinalysis Profile 11/20/2018 [facility] Urine Color Straw [address] [place] [address] [phone] Urine Appearance Clear Urine Specific [place] 1.009 Low 1.010-1.030 Urine pH 8.0 Normal 5-9 Urine Urobilinogen Negative Negative Urine Ketones Negative Negative Urine Protein Negative Negative Urine Leukocytes Negative Negative Urine Blood Negative Negative Urine Nitrite Negative Negative Urine Bilirubin Negative Negative Urine Glucose Negative Negative Urine White Blood Cell Trace(0-5/hpf) Absent Urine Red Blood Cell Trace(0-2/hpf) Absent Urine Bacteria Absent Absent Urine Culture And 11/20/2018 [facility] Urine SEE RESULT [address] [place] [address] [phone] CBC W/Auto Diff 08/21/2018 [facility] White Blood 9.4 10^3/uL Normal 3.5-[address] Count 0.8 [place] [address] [phone] Red Blood Count 3.46 10^6/uL Low 3.70-4.87 [...] Blood Cells % 0.0 CMP Panel 08/21/2018 [facility] Sodium 136 mmol/L Normal 135- [address] [place] [address] [phone] Potassium 3.9 mmol/L Normal 3.5-5.0 Chloride 98 [...] Egfr Non- 33.8 >60 Egfr 41.0 >60 2 Laboratory test 08/21/2018 [facility] C Reactive 14.97 mg/L High <8.[address] [place] [address] [phone] Erythrocyte Sed Rate 43 mm/Hr High 0-29 Vitamin D Total 25(Oh) 55.3 ng/mL High 20-50 3 1 SEE RESULT BELOW Name: TU KAHN : [address]: Loulou Carrillo MD Acct: [id number] Unit: [id number] AGE: 83 Location: [place] [id number] Re11/20/18 SEX: F Status: ADM IN SPEC: [id number] ELIAS: 11/20/[address] [facility] [address]: Loulou Carrillo MD REQ: [id number] RECD: 11/20/18 STATUS: GILDA JOSE DR: Jesu Bhardwaj MD _ SOURCE: URINE SPDESC: ORDERED: Urine Culture Procedure Result Reported Site Urine Culture Final 11/21/18- 1124 ML No Growth (<1,000 CFU/mL) * ML - Main Lab . END OF REPORT DEPARTMENT OF PATHOLOGY, [address] [place] [address] Mode Wilburn M.D. Director [facility] # [id number] 2 Because ethnic data is not always readily [...] 15-29 5 Kidney failure <15 (or dialysis) 3 Total 25-Hydroxyvitamin D2 and D3 (25-OH-VitD) <10 ng/mL (severe deficiency) 10-19 ng/mL (mild to moderate deficiency) 20-50 ng/mL (optimum levels) 51-80 ng/mL (increased risk of hypercalciuria) >80 ng/mL (toxicity possible) Procedures Date Code Description Status 01/02/2019 66538 Interrogation Device Eval In Person W/DR Completed Analysis,Single,Dual,Mul 10/29/2018 10141 Pace Maker Eval W/Iterative Adjment Dual Lead Completed 10/29/2018 50315 Pace Maker Eval W/Iterative Adjment Dual Lead Completed 09/08/2018 05553 EKG, Interpretation Only Completed 04/09/2018 [id number] Bone Mineral Density Test Completed 05/21/2015 [id number] Bone Mineral Density Test Completed Medical Devices Description No Information Available Encounters Type Date Location Provider Dx Diagnosis [facility].22 Chronic systolic 8:45a STRADDLE TRUCK OPERATOR (congestive) heart failure R60.0 Localized edema Office Visit 01/02/2019 10:00a [facility] Donaldo Martell I50.22 Chronic systolic Of Caty Davis M.D. (congestive) heart failure I25.10 Athscl heart disease of [place] coronary artery w/o ang pctrs I48.92 Unspecified atrial flutter Z95.0 Presence of cardiac pacemaker Office Visit 01/01/2019 11:15a [facility] Bailey [place] I50.22 Chronic systolic D.O. (congestive) heart failure S32.591A Oth fracture of right pubis, init encntr for closed fracture S32.401A Unsp fracture of right acetabulum, init for clos fx I25.10 Athscl heart disease of [place] coronary artery w/o ang pctrs I11.0 Hypertensive heart disease with heart failure E11.9 Type 2 diabetes mellitus without complications I48.92 Unspecified atrial flutter M06.9 Rheumatoid arthritis, unspecified R29.6 Repeated falls Office Visit 12/31/2018 8:[facility] STRADDLE TRUCK OPERATOR R60.0 Localized edema I50.22 Chronic systolic (congestive) heart failure Office Visit 12/28/2018 10:15a [facility] Carla Workman, S32.591D Oth fracture at [place] MD of right pubis, subs for fx w routn heal S32.401D Unsp fracture of right acetabulum, subs for fx w routn heal Office Visit 12/07/2018 10:00a [facility] Carla Workman, S32.591A Oth fracture at [place] of right pubis, init encntr for closed fracture S32.401A Unsp fracture of right acetabulum, init for clos fx Office Visit 11/25/2018 9:30a [facility] [place], S32.591A Oth fracture of D.O. right pubis, init encntr for closed fracture S32.401A Unsp fracture of right acetabulum, init for clos fx I11.0 Hypertensive heart disease with heart failure I25.10 Athscl heart disease of [place] coronary artery w/o ang pctrs I50.22 Chronic systolic (congestive) heart failure E11.9 Type 2 diabetes mellitus without complications I48.92 Unspecified atrial flutter M06.9 Rheumatoid arthritis, unspecified Office Visit 11/23/2018 10:34a [facility] Rashaun S32.591A Oth fracture Assoc,FATEMEH Hough of right Hospitalists kristine, init encntr for closed fracture S32.401A Unsp fracture of right acetabulum, init for clos fx E83.52 Hypercalcemia R29.6 Repeated falls Office Visit 11/22/2018 10:33a [facility] Rashaun S32.591A Oth fracture Assoc,FATEMEH Hough of right Hospitalists robinson, init encntr for closed fracture S32.401A Unsp fracture of right acetabulum, init for clos fx D64.9 Anemia, unspecified E83.52 Hypercalcemia I11.0 Hypertensive heart disease with heart failure I50.9 Heart failure, unspecified E11.9 Type 2 diabetes mellitus without complications R29.6 Repeated falls Office Visit 11/21/2018 10:33a [facility] Rashaun S32.591A Oth fracture Assoc,FATEMEH Hough of right Hospitalists kristine, init encntr for closed fracture S32.401A Unsp fracture of right acetabulum, init for clos fx E83.52 Hypercalcemia D64.9 Anemia, unspecified I50.9 Heart failure, unspecified I11.0 Hypertensive heart disease with heart failure Office Visit 11/20/2018 10:33a [facility] Estella Oquendo, S32.591A Oth fracture at [facility] of right pubis, init encntr for closed fracture W07.xxxA Fall from chair, initial encounter Office Visit 11/20/2018 10:32a [facility] Loulou S32.591A Oth fracture Assoc,jose antonio Davila M.D. of right Hospitalists pubis, init encntr for closed fracture S32.401A Unsp fracture of right acetabulum, init for clos fx I50.22 Chronic systolic (congestive) heart failure I11.0 Hypertensive heart disease with heart failure E83.52 Hypercalcemia R29.6 Repeated falls Office Visit 11/14/2018 [facility] S12.9xxA Fracture of neck, 1:00p Services Of FATEMEH Pradhan unspecified, initial encounter Office Visit 09/13/2018 [facility] Bailey I48.92 Unspecified 9:30a Linda [place]. atrial flutter I49.5 Sick sinus syndrome I50.20 Unspecified systolic (congestive) heart failure I11.0 Hypertensive heart disease with heart failure I25.10 Athscl heart disease of [place] coronary artery w/o ang pctrs M06.9 Rheumatoid arthritis, unspecified Office Visit 09/12/2018 [facility] N17.9 Acute kidney 11:18a Assoc,jose antonio Solis, STRADDLE TRUCK OPERATOR failure, Hospitalists unspecified R29.6 Repeated falls D69.6 Thrombocytopenia, unspecified Office Visit 09/11/2018 [facility] N17.9 Acute kidney 11:17a Assoc,jose antonio Solis, STRADDLE TRUCK OPERATOR failure, Hospitalists unspecified D69.6 Thrombocytopenia, unspecified R29.6 Repeated falls Office Visit 09/10/2018 [facility] N17.9 Acute kidney 11:17a Assoc,pc Will, STRADDLE TRUCK OPERATOR failure, Hospitalists unspecified R29.6 Repeated falls D69.6 Thrombocytopenia, unspecified Office Visit 09/09/2018 [facility] N17.9 Acute kidney 11:17a Assoc,pc Will, STRADDLE TRUCK OPERATOR failure, Hospitalists unspecified R29.6 Repeated falls I95.9 Hypotension, unspecified D69.6 Thrombocytopenia, unspecified Office Visit 09/08/2018 [facility] N17.9 Acute kidney 11:16a josea ntonio Alexandre M.D. failure, Hospitalists unspecified R29.6 Repeated falls I95.9 Hypotension, unspecified D69.6 Thrombocytopenia, unspecified Office Visit 09/07/2018 [facility] Ivania Augustine, N17.9 Acute kidney 11:16a Assjose antonio arvizu M.D. failure, Hospitalists unspecified R29.6 Repeated falls I10 Essential (primary) hypertension Office Visit 08/22/2018 9:45a [facility] Donaldo Martell I49.5 Sick sinus Of Caty Davis M.D. syndrome Z95.0 Presence of cardiac pacemaker I25.10 Athscl heart disease of [place] coronary artery w/o ang pctrs Assessments Date Code Description Provider 02/07/2019 S32.401D Unspecified fracture of right Carla Workman MD acetabulum, subsequent encounter for fracture with routine healing 02/07/2019 S32.591D Other specified fracture of right Carla Workman MD pubis, subsequent encounter for fracture with routine healing 01/31/2019 I50.22 Chronic systolic (congestive) heart Bailey Stanislaw, D.O. failure 01/31/2019 R60.0 Localized edema Bailey Stanislaw, D.O. 01/31/2019 I25.10 Atherosclerotic heart disease of Bailey Stanislaw, D.O. [place] coronary artery with 01/31/2019 I48.92 Unspecified atrial flutter Bailey Stanislaw, D.O. 01/31/2019 Z95.0 Presence of cardiac pacemaker Bailey Stanislaw, D.O. 01/31/2019 S32.591A Other specified fracture of right Bailey Stanislaw, D.O. pubis, initial encounter for closed fracture 01/31/2019 S32.401A Unspecified fracture of right Bailey Stanislaw, D.O. acetabulum, initial encounter for closed fracture 01/31/2019 E11.9 Type 2 diabetes mellitus without Bailey Stanislaw, D.O. complications 01/31/2019 M06.9 Rheumatoid arthritis, unspecified Bailey Stanislaw, D.O. 01/31/2019 R29.6 Repeated falls Bailey Stanislaw, D.O. 01/09/2019 I50.22 Chronic systolic (congestive) heart Josette Sun, STRADDLE TRUCK OPERATOR failure 01/09/2019 R60.0 Localized edema Josette Dino, STRADDLE TRUCK OPERATOR 01/07/2019 I50.22 Chronic systolic (congestive) heart Melida Bernard, STRADDLE TRUCK OPERATOR failure 01/07/2019 R60.0 Localized edema Melida Bernard, STRADDLE TRUCK OPERATOR 01/02/2019 I50.22 Chronic systolic (congestive) heart Donaldo Davis M.D. failure 01/02/2019 I25.10 Atherosclerotic heart disease of Donaldo Davis M.D. [place] coronary artery with 01/02/2019 I48.92 Unspecified atrial flutter Donaldo Davis M.D. 01/02/2019 Z95.0 Presence of cardiac pacemaker Donaldo Davis M.D. 01/01/2019 I50.22 Chronic systolic (congestive) heart Bailey Stanislaw, D.O. failure 01/01/2019 S32.591A Other specified fracture of right Bailey Stanislaw, D.O. pubis, initial encounter for closed fracture 01/01/2019 S32.401A Unspecified fracture of right Bailey Stanislaw, D.O. acetabulum, initial encounter for closed fracture 01/01/2019 I25.10 Atherosclerotic heart disease of Bailey Stanislaw, D.O. [place] coronary artery with 01/01/2019 I11.0 Hypertensive heart disease with heart Bailey Stanislaw, D.O. failure 01/01/2019 E11.9 Type 2 diabetes mellitus without Bailey Stanislaw, D.O. complications 01/01/2019 I48.92 Unspecified atrial flutter Bailey Stanislaw, D.O. 01/01/2019 M06.9 Rheumatoid arthritis, unspecified Bailey Stanislaw, D.O. 01/01/2019 R29.6 Repeated falls Bailey Stanislaw, D.O. 12/31/2018 R60.0 Localized edema Melida Bernard, STRADDLE TRUCK OPERATOR 12/31/2018 I50.22 Chronic systolic (congestive) heart Melida Bernard, STRADDLE TRUCK OPERATOR failure 12/28/2018 S32.591D Other specified fracture of right Carla Workman MD pubis, subsequent encounter for fracture with routine healing 12/28/2018 S32.401D Unspecified fracture of right Carla Workman MD acetabulum, subsequent encounter for fracture with routine healing 12/07/2018 S32.591A Other specified fracture of right Carla Workman MD pubis, initial encounter for closed fracture 12/07/2018 S32.401A Unspecified fracture of right Carla Workman MD acetabulum, initial encounter for closed fracture 11/25/2018 S32.591A Other specified fracture of right Bailey Stanislaw, D.O. pubis, initial encounter for closed fracture 11/25/2018 S32.401A Unspecified fracture of right Bailey Stanislaw, D.O. acetabulum, initial encounter for closed fracture 11/25/2018 I11.0 Hypertensive heart disease with heart Bailey Stanislaw, D.O. failure 11/25/2018 I25.10 Atherosclerotic heart disease of Bailey Stanislaw, D.O. [place] coronary artery with 11/25/2018 I50.22 Chronic systolic (congestive) heart Bailey Stanislaw, D.O. failure 11/25/2018 E11.9 Type 2 diabetes mellitus without Bailey Stanislaw, D.O. complications 11/25/2018 I48.92 Unspecified atrial flutter Bailey Stanislaw, D.O. 11/25/2018 M06.9 Rheumatoid arthritis, unspecified Bailey Stanislaw, D.O. 11/23/2018 S32.591A Other specified fracture of right Rashaun [place], [place] pubis, initial encounter for closed fracture 11/23/2018 S32.401A Unspecified fracture of right Rashaun Ruiz, [place] acetabulum, initial encounter for closed fracture 11/23/2018 E83.52 Hypercalcemia Rashaun Melchor, PA 11/23/2018 R29.6 Repeated falls Rashaun Melchor, PA 11/22/2018 S32.591A Other specified fracture of right Rashaun Ruiz, PA pubis, initial encounter for closed fracture 11/22/2018 S32.401A Unspecified fracture of right Rashaun Ruiz, PA acetabulum, initial encounter for closed fracture 11/22/2018 D64.9 Anemia, unspecified Rashaun Melchor, PA 11/22/2018 E83.52 Hypercalcemia Rashaun Melchor, PA 11/22/2018 I11.0 Hypertensive heart disease with heart Rashaun Melchor PA failure 11/22/2018 I50.9 Heart failure, unspecified Rashaun Melchor, PA 11/22/2018 E11.9 Type 2 diabetes mellitus without FATEMEH Marks complications 11/22/2018 R29.6 Repeated falls FATEMEH Marks 11/21/2018 S32.591A Other specified fracture of right FATEMEH Marks pubis, initial encounter for closed fracture 11/21/2018 S32.401A Unspecified fracture of right FATEMEH Marks acetabulum, initial encounter for closed fracture 11/21/2018 E83.52 Hypercalcemia FATEMEH Marks 11/21/2018 D64.9 Anemia, unspecified FATEMEH Marks 11/21/2018 I50.9 Heart failure, unspecified FATEMEH Marks 11/21/2018 I11.0 Hypertensive heart disease with heart FATEMEH Marks failure 11/20/2018 S32.591A Other specified fracture of right FATEMEH Casarez pubis, initial encounter for closed fracture 11/20/2018 S32.591A Other specified fracture of right Loulou Davila M.D. pubis, initial encounter for closed fracture 11/20/2018 W07.xxxA Fall from chair, initial encounter FATEMEH Casarez 11/20/2018 S32.401A Unspecified fracture of right Loulou Davila M.D. acetabulum, initial encounter for closed fracture 11/20/2018 I50.22 Chronic systolic (congestive) heart Loulou Davila M.D. failure 11/20/2018 I11.0 Hypertensive heart disease with heart Loulou Davila M.D. failure 11/20/2018 E83.52 Hypercalcemia Loulou Davila M.D. 11/20/2018 R29.6 Repeated falls Loulou Davila M.D. 11/14/2018 S12.9xxA Closed fracture of cervical spine [...] Sick sinus syndrome Bailey Dover D.O. 09/13/2018 I50.20 Unspecified systolic (congestive) Bailey [place] D.O. heart failure 09/13/2018 I11.0 Hypertensive heart disease with heart Bailey Dover D.O. failure 09/13/2018 I25.10 Atherosclerotic heart disease of Bailey Dover D.O. [place] coronary artery with 09/13/2018 M06.9 Rheumatoid arthritis, unspecified Zulma Rosales.O. 09/12/2018 N17.9 Acute kidney failure, unspecified Shalini Will, STRADDLE TRUCK OPERATOR 09/12/2018 R29.6 Repeated falls Shalini Will, STRADDLE TRUCK OPERATOR 09/12/2018 D69.6 Thrombocytopenia, unspecified Shalini [place], STRADDLE TRUCK OPERATOR 09/11/2018 N17.9 Acute kidney failure, unspecified Shalini [place], STRADDLE TRUCK OPERATOR 09/11/2018 D69.6 Thrombocytopenia, unspecified Shalini Will, STRADDLE TRUCK OPERATOR 09/11/2018 R29.6 Repeated falls Shalini Will, STRADDLE TRUCK OPERATOR 09/10/2018 N17.9 Acute kidney failure, unspecified Shalini [place], STRADDLE TRUCK OPERATOR 09/10/2018 R29.6 Repeated falls Shalini [place], STRADDLE TRUCK OPERATOR 09/10/2018 D69.6 Thrombocytopenia, unspecified Shalini Will, STRADDLE TRUCK OPERATOR 09/09/2018 N17.9 Acute kidney failure, unspecified Shalini [place], STRADDLE TRUCK OPERATOR 09/09/2018 R29.6 Repeated falls Shalini Will, STRADDLE TRUCK OPERATOR 09/09/2018 I95.9 Hypotension, unspecified Shalini Will, STRADDLE TRUCK OPERATOR 09/09/2018 D69.6 Thrombocytopenia, unspecified Shalini Will, STRADDLE TRUCK OPERATOR 09/08/2018 R94.31 Abnormal electrocardiogram [ECG] Anshu Freire M.D. [EKG] 09/08/2018 N17.9 Acute kidney failure, unspecified Josesito Davis M.D. 09/08/2018 R29.6 Repeated falls Josesito Davis M.D. 09/08/2018 I95.9 Hypotension, unspecified Josesito Davis M.D. 09/08/2018 D69.6 Thrombocytopenia, unspecified Josesito Moussallem, M.D. 09/07/2018 N17.9 Acute kidney failure, unspecified Ivania Augustine M.D. 09/07/2018 R29.6 Repeated falls Ivania Augustine M.D. 09/07/2018 I10 Essential (primary) hypertension Ivania Augustine M.D. 08/22/2018 I49.5 Sick sinus syndrome Donaldo Davis M.D. 08/22/2018 Z95.0 Presence of cardiac pacemaker Donaldo Davis M.D. 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 [place] coronary artery with Plan of Treatment Future Appointment(s):03/08/2019 1:30 pm - Kamar Womack MD at [facility]02/07/2019 - Carla Workman, MDS32.401D Unspecified fracture of right acetabulum, subsequent encounter for fracture with routine healingFollow up:Follow up: as sndnffD46.591D Other specified fracture of right pubis, subsequent encounter for fracture with routine healing Functional Status Description No Information Available Mental Status Description No Information Available Referrals Description No Information Available
--- OUTSIDE RECORDS SUMMARY | 2019-03-07 00:09 | XMS REPORT ---
:1935 Author Organization [facility] Care Team Providers Name Role Phone Unavailable [...] Pain Mgmt Active 2018-02 Caty pain 04-11 [place] 12:25: [id number] 00 Cardio edema Cardiovasc Active 2018-02 Caty ular 04-11 [place] 12:25: [id number] 00 Respiratory lung sounds Respirator Active 2018-02 Caty deficit y 04-11 [place] 12:25: [id number] 00 Respiratory dyspnea Respirator Active 2018-02 Caty present y 04-11 [place] 12:25: [id number] 00 Endo/Hansel diabetic Endo/Hansel Active 2018-02 Caty foot care 04-11 [place] 12:25: [id number] 00 Sensory impaired Sensory Active 2018-02 Caty hearing 04-11 [place] 12:25: [id number] 00 Integument skin Integument Active 2018-02 Caty integrity 04-11 [place] risk 12:25: [id number] 00 Nutrition nutritional Nutrition Active 2018-02 Caty restriction 04-11 [place] s 12:25: [id number] 00 Elimination urinary Eliminatio Active 2018-02 Caty incontinenc n 04-11 [place] e 12:25: [id number] 00 Elimination bowel Eliminatio Active 2018-02 Cayt incontinenc n 04-11 [place] e 12:25: [id number] 00 Neuro confusion Neuro/Emot Active 2018-02 Caty present ion 04-11 [place] 12:25: [id number] 00 Neuro impaired Neuro/Emot Active 2018-02 Caty decision-ma ion 04-11 [place] winnie 12:25: [id number] 00 Neuro memory Neuro/Emot Active 2018-02 Caty deficit ion 04-11 [place] needing 12:25: [id number] supervision 00 Activity ADL Activity Active 2018-02 Caty assistance 04-11 [place] required 12:25: [id number] 00 Activity self-care Activity Active 2018-02 Caty deficit 04-11 [place] 12:25: [id number] 00 Safety structural Safety Active 2018-02 Caty barriers 04-11 [place] present 12:25: [id number] 00 Safety cannot be Safety Active 2018-02 Caty left alone 04-11 [place] 12:25: [id number] 00 Safety fall risk Safety Active 2018-02 Caty factor 04-11 [place] present 12:25: [id number] 00 Safety risk for Safety Active 2018-02 Caty hospitaliza 04-11 [place] tion 12:25: [id number] 00 Medication oral med Meds Active 2018-02 Caty assistance 04-11 [place] required 12:25: [id number] 00 Musculoskel transfer Musculoske Active 2018-02 Caty etal assistance letal 04-11 [place] required 12:25: [id number] 00 Musculoskel requires Musculoske Active 2018-02 Caty etal human letal 04-11 [place] assist to 12:25: [id number] leave home 00 Allergies, Adverse Reactions, Alerts Allergy Name Allergy Status Severity Reaction(s) Onset Inactive Treating Comments Type Date Date Clinician amoxicillin Unknown Active Unknown Reaction Mesha Unknown 5-10 (Ni) Altagracia [id number] clavulanic Unknown Active Unknown Reaction Mesha acid Unknown 5-10 (Ni) Altagracia [id number] hydroxyzine Unknown Active Unknown Reaction Mesha Unknown 5-10 (Ni) Altagracia [id number] IVP dye Unknown Active Unknown Reaction Mesha Unknown 5-10 (Ni) Altagracia [id number] oxycodone Unknown Active Unknown Reaction Mesha Unknown 5-10 (Ni) Altagracia [id number] Medications Ordered Filled Start Stop Current Ordering Indication Dosage Frequency Signature Comments Components Medication Medication Date Date Medication? Clinician (SIG) Name Name No Known No Known No None None None Medications Medications For This For This Patient Patient Vital Signs Vital Name Observation Time Observation [...]
--- NOTE | 2019-03-07 00:20 | ED ---
Complex/Multi-Sys Presentation - HPI Summary HPI Summary: 83 year old female presents with a chief complaint of right sided pain secondary to falling from a standing position 30 minutes ago. Patient was walking in the dark using a walker when she fell mechanically. No LOC. She hit her forehead which developed a bump, and her pelvis which formed a bump the size of a melon. Patient also complains of right elbow pain. She has a history of bilateral knee replacements, shoulder surgery, neck fracture, and pelvic fracture. Patient is not on blood thinners. PMHx of DM. - History Of Current Complaint Chief Complaint: EDFall Time Seen by Provider: 03/07/19 00:00 Hx Obtained From: Patient Onset/Duration: Sudden Onset, Lasting Minutes Timing: Constant Severity Currently: Moderate Severity Initially: Moderate Location: Pain At: - Head, elbow, hip (all on the right side) Character: Sharp Associated Signs And Symptoms: Positive: Headache, Recent Trauma - Fall 30 min [employer] - Allergies/Home Medications Allergies/Adverse Reactions: Allergies Allergy/AdvReac Type Severity Reaction Status Date / Time hydroxyzine Allergy Unknown Verified 11/01/18 21:58 Reaction Details Iodinated Contrast Media AdvReac Severe Diarrhea Verified 11/01/18 21:58 [Iodinated Contrast- Oral and IV Dye] oxycodone AdvReac Severe Nausea And Verified 11/01/18 21:58 Vomiting amoxicillin [From Augmentin] AdvReac Intermediate Nausea And Verified 11/01/18 21:58 Vomiting clavulanic acid AdvReac Intermediate Nausea And Verified 11/01/18 21:58 [From Augmentin] Vomiting infliximab [From Remicade] AdvReac Unknown Verified 11/22/18 11:19 Reaction Details PMH/Surg Hx/FS Hx/Imm Hx Endocrine/Hematology History: Reports: Hx Diabetes - TYPE ll Cardiovascular History: Reports: Hx Angina, Hx Coronary Artery Disease - CAROTID ENDARTERECTOMY 2013, Hx Hypercholesterolemia, Hx Hypertension, Hx Valvular Heart Disease - Valve repair, Other Cardiovascular Problems/Disorders - HIGH CHOLESTEROL, LBBB, SEE COMMENT Denies: Hx Myocardial Infarction, Hx Pacemaker/ICD Respiratory History: Denies: Hx Asthma, Hx Chronic Obstructive Pulmonary Disease (COPD) GI History: Reports: Hx Gastroesophageal Reflux Disease - ON PROTONIX DAILY, Hx Hiatal Hernia - HISTORY OF, Other GI Disorders - CHOLECYSTECTOMY, ABD HERNIA REPAIR, PANCREATITIS, HIGH CHOLESTEROL History: Reports: Other Problems/Disorders - STRESS INCONTINENCE WITH COUGHING/SNEEZING Denies: Hx Chronic Renal Failure Musculoskeletal History: Reports: Hx Arthritis - RIGHT SHOULDER, KNEES, Other Musculoskeletal History - PRIMARY OSTEOARTHRITIS, RIGHT SHOULDER, BILAT TKR, FX HUMERUS Sensory History: Reports: Hx Cataracts, Hx Contacts or Glasses Denies: Hx Deafness, Hx Hearing Aid Opthamlomology History: Reports: Hx Cataracts, Hx Contacts or Glasses Neurological History: Denies: Other Neuro Impairments/Disorders - RESIDUAL Psychiatric History: Denies: Hx Autism - Cancer History Hx Chemotherapy: No - Surgical History Surgery Procedure, Year, and Place: 05/2001 CHOLECYSTECTOMY- [place]. 2002 ADB HERNIA REPAIR- [place]. 2003 LEFT TKR- [place]. 2004 RIGHT TKR- [place]. 2013 BILATERAL CAROTID ENDARTERECTOMY- [place]. 02/2014 ORIF FX LEFT HUMERUS- [facility]. 05/2015 BILATERAL CATARACT EXTRACTION WITH IOL IMPLANT- [facility] Hx Anesthesia Reactions: No Infectious Disease History: No Infectious Disease History: Denies: Hx Clostridium Difficile, Hx Hepatitis, Hx Human Immunodeficiency Virus (HIV), Hx of Known/Suspected MRSA, Hx Shingles, Hx Tuberculosis, History Other Infectious Disease, Traveled Outside the [place] in Last 30 Days - Family History Known Family History: Positive: Cardiac Disease - Social History Alcohol Use: None Hx Substance Use: No Substance Use Type: Reports: None Hx Tobacco Use: No Smoking Status (MU): Never Smoked Tobacco Have You Smoked in the Last Year: No Review of Systems Musculoskeletal: Other - Swelling at points of trauma Positive: Arthralgia, Myalgia Positive: Bruising Positive: Headache All Other Systems Reviewed And Are Negative: Yes Physical Exam - Summary Physical Exam Summary: Constitutional: Well-developed, Well-nourished, Alert. (-) Distressed Skin: Warm, Dry HENT: Normocephalic; Atraumatic. 6 cm circular contusion on right forehead with overlying abrasion. Appropriately tender. Eyes: Conjunctiva normal Neck:. (-) JVD, (-) Stridor, (-) Tracheal deviation. Cervical collar in place. Cardio: Rhythm regular, rate normal, Heart sounds normal; Intact distal pulses; The pedal pulses are 2+ and symmetric. Radial pulses are 2+ and symmetric. Pulmonary/Chest wall: Effort normal. (-) Respiratory distress, (-) Wheezes, (-) Rales Abd: Soft, (-) tenderness, (-) Distension, (-) Guarding, (-) Rebound Musculoskeletal: 16cm hematoma on lateral aspect of proximal right thigh. Distal extremity warm and well perfused. Bilateral edema. Neuro: Alert, Oriented x3 Psych: Mood and affect Normal Triage Information Reviewed: Yes Vital Signs On Initial Exam: Initial Vitals Temp Pulse Resp BP Pulse Ox 98.6 F 72 16 180/64 98 03/07/19 00:06 03/07/19 00:06 03/07/19 00:06 03/07/19 00:06 03/07/19 00:06 Vital Signs Reviewed: Yes Procedures - Sedation Patient Received Moderate/Deep Sedation with Procedure: No Diagnostics - Vital Signs Vital Signs Temp Pulse Resp BP Pulse Ox 03/07/19 00:06 98.6 F 72 16 180/64 98 - Laboratory Result Diagrams: 03/07/19 00:33 03/07/19 00:33 Lab Statement: Any lab studies that have been ordered have been reviewed, and results considered in the medical decision making process. - CT CT-Spine CT Interpretation Completed By: Radiologist Summary of CT Findings: CT C-Spine: 1. No acute fracture involving the cervical vertebral bodies or posterior elements. 2. Old fractures involving the base of the posterior arch of C1 on both sides. 3. Slight anterolisthesis of C3 on C4 and C7 onto T1 by few mm. This is secondary to degenerative changes of the facet joints and disc space. 4. Multilevel degenerative cervical disc disease and facet disease. This is coupled with calcification of the posterior longitudinal ligament. This is most significant at the levels of C5, C6, and C7. No significant central canal stenosis. Variable degrees of neural foramina narrowing secondary to degenerative changes of the uncovertebral joints and facet joints. Since prior CT study of 02/25/19, no new findings. An ED physician has reviewed this report. Brain CT CT Interpretation Completed By: Radiologist Summary of CT Findings: IMPRESSION: Scalp hematoma overlying the right frontal calvarium. No underlying fracture. No acute intracranial hemorrhage. No intracranial mass. An ED physician has reviewed this report. - Ultrasound Femur US Ultrasound Interpretation Completed By: Radiologist Summary of Ultrasound Findings: Femur US: Large fluid collection in the lateral aspect of the thigh. This does raise the possibility of a closed degloving injury or a Almonte-Lavellee lesion. No evidence of active bleeding. An ED physician has reviewed this US. Complex Multi-Symp Course/Dx Course Of Treatment: 83 year old female presents with a chief complaint of right sided pain secondary to falling from a standing position 30 minutes ago. Patient was walking in the dark using a walker when she fell mechanically. No LOC. She hit her forehead which developed a bump, and her pelvis which formed a bump the size of a melon. Patient also complains of right elbow pain. She has a history of bilateral knee replacements, shoulder surgery, neck fracture, and pelvic fracture. Patient is not on blood thinners. PMHx of DM. Physical exam shows a 6 cm circular contusion on right forehead with overlying abrasion. Appropriately tender. Cervical collar in place. 16cm hematoma on lateral aspect of proximal right thigh. Distal extremity warm and well perfused. Bilateral edema on lower extremities. Palpable distal pulses. No tenderness to chest wall. Femur US: Large fluid collection in the lateral aspect of the thigh. This does raise the possibility of a closed degloving injury or a Almonte- Lavellee lesion. No evidence of active bleeding. 1. No acute fracture involving the cervical vertebral bodies or posterior elements. 2. Old fractures involving the base of the posterior arch of C1 on both sides. 3. Slight anterolisthesis of C3 on C4 and C7 onto T1 by few mm. This is secondary to degenerative changes of the facet joints and disc space. 4. Multilevel degenerative cervical disc disease and facet disease. This is coupled with calcification of the posterior longitudinal ligament. This is most significant at the levels of C5, C6, and C7. No significant central canal stenosis. Variable degrees of neural foramina narrowing secondary to degenerative changes of the uncovertebral joints and facet joints. Since prior CT study of 02/25/19, no new findings. Brain CT: Scalp hematoma overlying the right frontal calvarium. No underlying fracture. No acute intracranial hemorrhage. No intracranial mass. Laboratory shows HGB 10, RBC 3.33, INR 1.29, and creatinine 1.30. Diagnosis is Almonte-Lavellee lesion. Dr. Wylie accepts patient for admission. She recommends antibiotics in preparation for potential operation. Patient understands and agrees with this plan. - Diagnoses Provider Diagnoses: Almonte Wilber lesion - Physician Notifications Discussed Care Of Patient With: Maira Wylie - Surgery Time Discussed With Above Provider: 06:08 Instructed by Provider To: Admit As Observation - I spoke to Dr. Wylie, Surgery, about the possibility that the patient may have a Almonte-Lavellee lesion. She agreed to admit the patient for observation. She recommends antibiotics in preparation for potential operation. Admit/Transition Orders Completed By ED Provider: Yes Discharge ED - Sign-Out/Discharge Documenting (check all that apply): Patient Departure - admit - Discharge Plan Condition: Stable Disposition: ADMITTED TO [facility] Referrals: Kanu Bhardwaj MD [Primary Care Provider] - - Billing Disposition and Condition Condition: STABLE Disposition: Admitted to [facility] - Attestation Statements Document Initiated by Scribe: Yes Documenting Scribe: Harvey Connelly Provider For Whom Tom is Documenting (Include Credential): Archie Ramirez MD Scribe Attestation: Harvey Chavarria, scribed for Archie Ramirez MD on 03/07/19 at 0722. Scribe Documentation Reviewed: Yes Provider Attestation: The documentation as recorded by the jennyibHarvey [email or web address] accurately reflects the service I personally performed and the decisions made by me, Archie Ramirez MD Status of Scribe Document: Viewed
[2019-03-07 00:39] LABS: ABS Basophils 0.1 10^3/ul (0-0.2); ABS Eosinophils 0.1 10^3/ul (0-0.6); ABS Lymphocytes 1.5 10^3/ul (1.0-4.8); ABS Monocytes 0.5 10^3/ul (0-0.8); ABS Neutrophils 4.2 10^3/ul (1.5-7.7); Eosinophil % 2.1 %; Hematocrit 31 % (35-47); Hemoglobin 10.3 g/dL (12.0-16.0); Lymphocyte % 23.4 %; Mean Corpuscular HGB Conc 34 g/dL (31-36); Mean Corpuscular Hemoglobin 31 pg (27-31); Mean Corpuscular Volume 92 fL (80-97); Mean Platelet Volume 8.6 fL (7.4-10.4); Platelet Count 209 10^3/uL (150-450); Red Blood Count 3.33 10^6 /uL (3.70-4.87); Red Cell Distribution Width 20 % (10-15); White Blood Count 6.4 10^3/uL (3.5-10.8)
[2019-03-07 00:48] LABS: Activated Partial Thrombo Time 33.5 seconds (26.0-38.0); INR 1.29 (0.82-1.09)
[2019-03-07 00:55] LABS: Calcium 10.1 mg/dL (8.6-10.3); EGFR African American 47.6 (>60); EGFR Non-African American 39.3 (>60); Potassium 3.9 mmol/L (3.5-5.0)
[2019-03-07] MEDS ORDERED: Acetaminophen TAB* 325 MG ONE (02:24)
[2019-03-07] MEDS ORDERED: ceFAZolin 2 GM PREMIX in ORs 2 GM/50 ML BAG IVPB ONE (06:14)
[2019-03-07] MEDS ORDERED: Ondansetron INJ* 2 MG/ML VIAL IV PRN (09:01)
[2019-03-07] MEDS ORDERED: Al Hydrox/Mg Hydrox/Simet LIQ* 30 ML UDC PO PRN (09:01)
[2019-03-07] MEDS ORDERED: Furosemide IV* 10 MG/ML VIAL (40 MG) IV SLOW PU ONE (09:05)
--- NOTE | 2019-03-07 09:42 | CONSULT ---
Consult Consult: DATE OF CONSULTATION: 03/07/19 REASON FOR CONSULTATION: Right thigh hematoma HPI: Romina Kahn is an 83 year-old woman with a h/o CAD s/p CABG, pacemaker, and h/ o stroke 8 years ago who presented to the ED after a fall at home. She has difficulty with balance which is unchanged. She is able to walk short distances with a walker. Last night she got up to get a pillow in the dark and fell, landing on her right side. She has a history of falls. In Oct and Nov, she suffered from a cervical spine fracture and R pelvis and acetabular fracture after falling. She was at [facility] for about 3 months and left around [facility]. She lives with her daughter and has a home nurse and home aides who come a couple of times a week. The patient c/o R thigh pain only. She denies chest pain, shortness of breath, abdominal pain, nausea or vomiting. She had been in her usual state of health prior to the fall. She denies loss of consciousness after the fall. The patient and her daughter are concerned about returning home after this fall. They are not sure that she has enough help at home. Because she has a contrast allergy, xray and ultrasound were performed. There is superior and inferior pubic rami fractures minimally displaced. There is concern for a closed degloving injury (Almonte-Lavellee lesion) to the right lateral thigh on ultrasound. PMH: CAD, HTN, hyperlipidemia, diabetes, h/o stroke 8 years ago PSH: CABG x3, pacemaker placement, B/l carotid endarterectomy, b/l knee replacements, R shoulder replacement Home Medications Medication Instructions Recorded Confirmed Type Pantoprazole TAB * [Protonix TAB*] 40 mg PO DAILY 06/20/17 03/07/19 History rOPINIRole TAB* [Requip TAB*] 2 mg PO BEDTIME 06/20/17 03/07/19 History Cyanocobalamin TAB* [Vitamin B12 2,500 mcg PO QAM 03/26/18 03/07/19 History TAB*] Folic Acid TAB* [Folvite TAB*] 1 mg PO DAILY 03/26/18 03/07/19 History Losartan TAB* [Cozaar TAB*] 50 mg PO DAILY 03/26/18 03/07/19 History Amiodarone TAB* [Cordarone Tab*] 200 mg PO DAILY 06/29/18 03/07/19 History Magnesium Oxide [Magnesium] 400 mg PO DAILY 11/22/18 03/07/19 History Acetaminophen TAB* [Tylenol TAB*] 650 mg PO Q6H PRN tab 11/23/18 03/07/19 Rx Cholecalciferol TAB* [Vitamin D 5,000 unit PO DAILY 03/07/19 03/07/19 History TAB*] Ferrous Sulfate TAB* 325 mg PO DAILY 03/07/19 03/07/19 History Melatonin (NF) 5 mg PO DAILY 03/07/19 03/07/19 History Metoprolol Succinate XL TAB* 50 mg PO QPM 03/07/19 03/07/19 History [Toprol XL TAB*] Torsemide TAB* [Demadex*] 20 mg PO DAILY 03/07/19 03/07/19 History Allergies hydroxyzine Allergy (Verified 11/01/18 21:58) Unknown Reaction Details Iodinated Contrast Media [Iodinated Contrast- Oral and IV Dye] Adverse Reaction (Severe, Verified 11/01/18 21:58) Diarrhea oxycodone Adverse Reaction (Severe, Verified 11/01/18 21:58) Nausea And Vomiting amoxicillin [From Augmentin] Adverse Reaction (Intermediate, Verified 11/01/18 21:58) Nausea And Vomiting clavulanic acid [From Augmentin] Adverse Reaction (Intermediate, Verified 21:58) Nausea And Vomiting infliximab [From Remicade] Adverse Reaction (Verified 11/22/18 11:19) Unknown Reaction Details FH: Father from cancer (details unknown). Mother from [place]. Sister due to complications from smoking and alcoholism. Brother with CAD. SH: Patient lives with her daughter. The patient needs 24 hour care. She denies tobacco, alcohol, or drug use. PHYSCIAL EXAM: Temp Pulse Resp BP Pulse Ox 99 F 65 19 133/47 92 03/07/19 09:25 03/07/19 09:25 03/07/19 09:25 03/07/19 09:25 03/07/19 09:25 General: Frail, elderly lady lying in bed. No acute distress. Head: Ecchymosis and mild swelling right forehead. Normocephalic. Eyes: Pupils equal. No scleral icterus. Mouth: Moist mucous membranes. Neck: Trachea midline. CV: RRR Chest: Clear to auscultation b/l Abdomen: Soft, nontender, nondistended Extremities: Large hematoma lateral right thigh, tender to palpation. Moderate pedal edema b/l Skin: Warm and dry. Neuro: Alert, oriented x3 Laboratory Results - last 24 hr 03/07/19 03/07/19 03/07/19 00:33 00:33 00:33 WBC 6.4 RBC 3.33 L Hgb 10.3 L Hct 31 L MCV 92 MCH 31 MCHC 34 RDW 20 H Plt Count 209 MPV 8.6 Neut % (Auto) 65.6 Lymph % (Auto) 23.4 [place] % (Auto) 7.8 Eos % (Auto) 2.1 Baso % (Auto) 1.1 Absolute Neuts (auto) 4.2 Absolute Lymphs (auto) 1.5 Absolute Monos (auto) 0.5 Absolute Eos (auto) 0.1 Absolute Basos (auto) 0.1 Absolute Nucleated RBC 0.0 Nucleated RBC % 0.0 INR (Anticoag Therapy) 1.29 H APTT 33.5 Sodium 135 Potassium 3.9 Chloride 98 L Carbon Dioxide 32 Anion Gap 5 BUN 39 H Creatinine 1.30 H Est GFR ( Amer) 47.6 Est GFR (Non-Af Amer) 39.3 BUN/Creatinine Ratio 30.0 H Glucose 134 H Calcium 10.[address] Findings [Brain IMPRESSION: CT] Scalp hematoma overlying the right frontal calvarium. No underlying fracture. No acute intracranial hemorrhage. No intracranial mass. An ED physician has reviewed this report. Summary of CT Findings [CT- CT C-Spine: 1. No acute fracture involving the Spine] cervical vertebral bodies or posterior elements. 2. Old fractures involving the base of the posterior arch of C1 on both sides. 3. Slight anterolisthesis of C3 on C4 and C7 onto T1 by few mm. This is secondary to degenerative changes of the facet joints and disc space. 4. Multilevel degenerative cervical disc disease and facet disease. This is coupled with calcification of the posterior longitudinal ligament. This is most significant at the levels of C5, C6, and C7. No significant central canal stenosis. Variable degrees of neural foramina narrowing secondary to degenerative changes of the uncovertebral joints and facet joints. Since prior CT study of 02/25/19, no new findings. An ED physician has reviewed this report. Summary of Ultrasound Findings Femur US: Large fluid collection in the lateral [Femur US] aspect of the thigh. This does raise the possibility of a closed degloving injury or a Almonte-Lavellee lesion. No evidence of active bleeding. An ED physician has reviewed this US. A&P: 83F with right thigh hematoma, possible closed degloving injury following a mechanical fall. -Plan for I&D of right thigh hematoma and drain placement today in OR. -NPO -Cefazolin ordered in ED. Plan to re-dose prior to surgery.
[2019-03-07] MEDS ORDERED: Cyanocobalamin TAB* 500 MCG PO SCH (10:00)
[2019-03-07] MEDS: Magnesium Oxide TAB* 400 MG PO SCH (10:22)
[2019-03-07] MEDS: Pantoprazole TAB * 40 MG TAB PO SCH (10:23)
[2019-03-07] MEDS: Folic Acid TAB* 1 MG PO SCH (10:23)
[2019-03-07] MEDS: Cholecalciferol TAB* 400 UNIT PO SCH (10:23)
[2019-03-07] MEDS: Ferrous Sulfate TAB* 325 MG PO SCH (10:23)
[2019-03-07] MEDS ORDERED: ceFAZolin 2 GM PREMIX in ORs 2 GM/50 ML BAG ONE (11:11)
[2019-03-07] MEDS ORDERED: Lidocaine 1% INJ* 10 MG/ML 30 ML SDV ONE (11:24)
[2019-03-07] MEDS ORDERED: Propofol* 10 MG/ML 20 ML BTL ONE (12:07)
[2019-03-07] MEDS ORDERED: Lidocaine 2% MPF* 2 ML VIAL ONE (12:07)
[2019-03-07] MEDS ORDERED: fentaNYL* 50 MCG/ML 2 ML VIAL (100 MCG VIAL) ONE (12:26)
[2019-03-07] MEDS ORDERED: Ondansetron INJ* 2 MG/ML VIAL ONE (12:40)
--- NOTE | 2019-03-07 13:01 | HP ---
CC: Dr. Bhardwaj * HISTORY AND PHYSICAL: DATE OF ADMISSION: 03/07/19 PROVIDER: FATEMEH Grullon. ATTENDING PHYSICIAN WHILE IN THE HOSPITAL: Dr. Ivania Augustine * (dictated by FATEMEH Grullon). PRIMARY CARE PROVIDER: Dr. Bhardwaj. CHIEF COMPLAINT: Fall with leg pain. HISTORY OF PRESENT ILLNESS: Romina Kahn is an 83-year-old female with past medical history significant for frequent falls; hypertension; diabetes mellitus type 2; CVA; coronary artery disease, status post CABG; heart failure with reduced ejection fraction; mild dementia; sick sinus syndrome, status post pacemaker; rheumatoid arthritis; and severe tricuspid regurgitation, who presents to the emergency department after a fall at home in the evening of . The patient tells me that she was getting ready to go to bed, she was using her walker when she realized her pillow was not on her bed, so she used her walker and grabbed her pillow and tried to hold both her pillow and the walker at the same time and fell over. She did strike her head on the right side of the frontal region and denies loss of consciousness. She additionally fell on her right hip. Her daughter, who she lives with, was unable to get her off the floor and EMS was called and brought the patient to the emergency department. The patient tells me that she was able to walk into the ambulance and therefore she was able to ambulate. She denies numbness or tingling in her extremities, visual changes, head pain, chest pain, difficulty breathing, fevers , chills, abdominal pain, nausea, vomiting. She tells me that when she received Tylenol today in the emergency department, it did help with the pain in her right hip. The patient does tell me that she has been having increased bilateral lower extremity edema and she does weigh herself daily and does admit that she has had multiple pounds in weight gain in the last several days. Additionally, the patient has been wearing her cervical collar since her C1 fracture several months ago, and she tells me that she believes she is supposed to have an appointment with Dr. Womack this week to determine if she is able to stop wearing the cervical collar. EMERGENCY DEPARTMENT COURSE: When the patient arrived at the emergency department she did have an ultrasound of her soft tissue of the right thigh, which demonstrated a degloving hematoma measuring 10 cm x 4.[address] Elizabeth of the general surgery service was contacted by the emergency department provider, who suggested the patient will be able to proceed with surgery today for evacuation of this hematoma and asked for the hospitalist to please admit the patient. PAST MEDICAL HISTORY: 1. Frequent falls. 2. Nondisplaced pelvic fracture in November 2018. 3. C1 fracture in 2018. 4. Hypertension. 5. Hyperlipidemia. 6. Rheumatoid arthritis. 7. Diabetes mellitus type 2, diet controlled. 8. CVA in 2013. 9. History of SVT 10. Atrial flutter. 11. Left bundle-branch block. 12. Coronary artery disease, status post CABG. 13. Restless leg syndrome. 14. Heart failure with reduced ejection fraction, most recent echocardiogram with EF of 40% to 45%. 15. Mild dementia, though able to recount the entire event leading up to this presentation and is able to cover all of her ADLs. 16. Iron deficiency. 17. Sick sinus syndrome, status post pacemaker 18. Severe tricuspid regurgitation. PAST SURGICAL HISTORY: 1. CABG. 2. Bilateral endarterectomy. 3. Bilateral knee replacement. 4. Pacemaker placement 5. Reverse right shoulder replacement. 6. Bilateral cataract surgery. HOME MEDICATIONS: 1. Torsemide 20 mg p.o. daily. 2. Requip 2 mg p.o. at bedtime. 3. Pantoprazole 40 mg p.o. daily. 4. Metoprolol succinate 50 mg p.o. q.p.m. 5. Melatonin 5 mg p.o. daily. 6. Magnesium oxide 400 mg p.o. daily. 7. Losartan 50 mg p.o. daily. 8. Folic acid 1 mg p.o. daily. 9. Ferrous sulfate 325 mg p.o. daily. 10. Vitamin B12 2500 mcg p.o. daily. 11. Vitamin D 5000 units p.o. daily. 12. Amiodarone 20 mg p.o. daily. 13. Tylenol 650 mg p.o. q.6 hours p.r.n. pain. ALLERGIES: Unknown reaction to HYDROXYZINE, diarrhea to ORAL and IV CONTRAST, nausea and vomiting to OXYCODONE, nausea and vomiting to AUGMENTIN, and unknown reaction to REMICADE. FAMILY HISTORY: The patient's father had COPD and also related to this, and her mother of an CA either in her late 50s or late 40s, and her sister of an CA as well. SOCIAL HISTORY: The patient lives with her daughter, Grecia. Her daughter is her power of real estate associate attorney and healthcare proxy. 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 She denies alcohol use, drug use, and tobacco use. She was never a smoker. REVIEW OF SYSTEMS: An 11-point review of systems was completed and all pertinent positives and negatives are above in the HPI and all other systems are negative. PHYSICAL EXAMINATION GENERAL: Elderly white female, lying in hospital bed, appearing comfortable, in no acute distress. VITAL SIGNS: Temperature 98.6 degrees Fahrenheit; heart rate 60 beats per minute; respiratory rate 20; oxygen saturation 95% on room air; blood pressure 180/64, later 133/47. HEENT: Head: Abrasion and ecchymosis to right frontal region with small hematoma, minimally tender to palpation. Eyes: PERRL. Sclerae anicteric. ENT : Mucous membranes moist. LUNGS: Clear to auscultation throughout. CARDIO: Regular rate and rhythm with grade 3/6 systolic murmur appreciated consistent with a history of severe tricuspid regurge. ABDOMEN: Soft, nontender, nondistended. EXTREMITIES: +3 pitting edema bilaterally, pretibially. No clubbing or cyanosis. There is a large approximately 10 cm x 6 cm hematoma to the right thigh. No surrounding cellulitis. Minimally tender to palpation. Range of motion of the right and left hip intact. NEUROLOGIC: The patient is alert and oriented x3. No focal deficits. Able to move all extremities. SKIN: Warm, dry, and intact apart from abrasion to previously mentioned right frontal region of head. DIAGNOSTIC STUDIES/LAB DATA: White blood cell count 6.4, hemoglobin 10.3, hematocrit 31, platelet count 209. INR 1.29, PTT 33.5. Sodium 135, potassium 3.9, chloride 98, carbon dioxide 32, anion gap 5, BUN 39, creatinine 1.3, glucose 134, calcium 10.1. Hip/pelvis x-ray: Minimally displaced right superior and inferiorly rami fractures. Soft tissue ultrasound: Large fluid collection in the lateral aspect of the thigh. This does raise the possibility of a closed degloving injury or a Almonte- Wilber lesion. No evidence of active bleeding. Fluid collection is 10 cm x 4.6 cm x 7.[address]: Scalp hematoma overlying the right frontal calvarium. No underlying fracture. No acute intracranial hemorrhage. No intracranial mass. Cervical spine CT: No acute fracture involving the cervical vertebral bodies or posterior elements. It does demonstrate old fractures at the posterior arch of C1 on both sides. Slight anterolisthesis of C3 on C4 and C7 on T1 by a few millimeters. This is secondary to degenerative changes of the facet joints and disk space. Multilevel degenerative cervical disease and facet disease. This is coupled with calcification of the posterior longitudinal ligament. This is most significant at the levels of C5, C6, and C7. No significant central canal stenosis. Variable degrees of neuroforaminal narrowing secondary to degenerative changes of the uncovertebral joints and facet joints. Prior superior CT study of 02/25/19, no new findings. EKG: Normal sinus rhythm, T-wave inversions in V3 through V4 consistent with previous EKG, left bundle-branch block consistent with previous EKG, no concern for ischemic changes. Normal sinus rhythm. Rate 66 beats per minute. ASSESSMENT AND PLAN: Romina Kahn is an 83-year-old white female with past medical history significant for cerebrovascular accident; coronary artery disease, status post coronary artery bypass graft; hypertension; frequent falls ; mild dementia; heart failure with reduced ejection fraction; left bundle- branch block; sick sinus syndrome, status post pacemaker; severe tricuspid regurge, who presents to the emergency department after a mechanical fall at home. The patient will be admitted for: 1. Right thigh fluid collection. This represents specific concern for closed degloving injury, though there is no active bleeding. General surgeon Dr. Elizabeth is planning to take the patient to the OR today, having the patient n.p.o. for this procedure. She does have frequent falls at home and I have ordered physical therapy to evaluate the patient tomorrow after the surgery. I believe that this patient is medically optimized for surgery overall. She does have a RCRI risk score 3 indicating a 15% 30-day risk of , myocardial infarction, or cardiac arrest. General surgery has indicated a request for order for cefazolin and Dr. Novak has ordered this preoperatively. Further management will be indicated by the surgery team. 2. Acute decompensated heart failure. The patient does admit that she has had weight gain in the last several days and I am noting significant bilateral peripheral edema of her lower extremities. I am ordering 40 IV Lasix b.i.d. and holding her home torsemide. She has no respiratory symptoms and her lungs are clear. I have no further concerns at this point, and I do not believe this should delay her surgery in any means; however, daily weights and strict I's and O's as well and her home metoprolol be continued. 3. History of atrial flutter. I am continuing her home amiodarone. She is not currently in atrial flutter. She is in fact in normal sinus rhythm, though she does have a pacemaker. I will continue her metoprolol as well, as previously mentioned. 4. Coronary artery disease. It does not appear that the patient is on antiplatelet therapy at home. I will continue her metoprolol and losartan. 5. Iron deficiency. I will continue her home iron supplement. 6. Diabetes. It appears she is diet controlled. I will check a hemoglobin A1c. Her glucose was 134 in the emergency department, which is in good range. 7. Acute kidney injury. The patient has elevated BUN and creatinine from her baseline. I suspect this could possibly be related to her decompensated heart failure. I am hoping that this will improve with aggressive Lasix; however, I will continue to monitor this. 8. Rheumatoid arthritis. It does not appear that the patient is on current therapy for this. She does take folic acid indicating to me that she may have been taking methotrexate in the past, but her pharmacy record does not indicate this nor her home medication list from her primary care provider. 9. Restless leg syndrome. We will continue the patient's home Requip. 10. Hypertension. The patient was hypertensive when she came to the emergency department. This is most likely related to pain and this is improving. I will continue her home losartan. 11. History of cerebrovascular accident. Again, the patient does not appear to be on antiplatelet therapy and we will continue to monitor her. 12. Pelvic rami fractures. Her previous fractures in November 2018 were nondisplaced and the scan is read as the superior and inferior rami being displaced and this is of concern to me. Dr. Rice of the orthopedic team has been asked to evaluate the patient. 13. Previous C1 fracture. I will make an attempt to call Dr. Womack' office today to determine if the patient is able to stop using her cervical collar, and if this is unable to be determined, then she will need to follow up outpatient as a new appointment. 14. FEN: The patient is n.p.o. for surgery. Electrolytes within normal limits , no need for repletion. I am holding off on IV fluids for now due to decompensated heart failure. 15. DVT risk score: The patient has a DVT risk score of 3. I am holding any DVT prophylaxis at this time due to anticipation of surgery today and management will be per surgical recommendation postoperatively. 16. Code Status: The patient is full code. The patient's health care proxy is her daughter Grecia as previously mentioned. TIME SPENT: Approximately 50 minutes was spent on this admission, approximately half this time was spent at the bedside evaluating the patient and discussing the plan of care. I have reviewed this case with my attending Dr. Ivania Augustine, and she agrees with this plan of care. FATEMEH GRULLON [id number]/[facility] #: [id number] MTDD
[2019-03-07] MEDS ORDERED: Acetaminophen TAB* 325 MG PO PRN (13:33)
[2019-03-07] MEDS ORDERED: HYDROmorphone INJ1* 1 MG/ML SYRINGE IV PRN (13:33)
[2019-03-07] MEDS ORDERED: Naloxone* 0.4 MG/ML 1 ML VIAL IV PRN (13:33)
[2019-03-07] MEDS: Amiodarone TAB* 200 MG PO SCH (13:37)
[2019-03-07] MEDS: Losartan TAB* 25 MG PO SCH (13:37)
--- NOTE | 2019-03-07 13:50 | BRIEFOPN ---
Brief Operative/Procedure Note - Operation Details Pre-Op Diagnosis: Right thigh hematoma and closed degloving injury Post-Op Diagnosis: Same Procedures: I&D R thigh hematoma Surgeon(s)/Proceduralists: Melody Wylie MD Anesthesia: General Estimated Blood Loss: 30ml Findings: Large hematoma lateral right thigh. 13 cm x 11.5 cm. 10Fr CANDIS drain placed in cavity. Specimen(s)/Culture(s) Description: Aerobic and anerobic culture Complications: None
--- NOTE | 2019-03-07 14:30 | OP ---
Operative Report - Blank - Operative Report Date of Operation: 02/25/19 Note: PRE-OPERATIVE DX: right thigh hematoma and closed degloving injury POST-OPERATIVE DX: Same PROCEDURE: I&D of right thigh hematoma SURGEON: Melody Wylie MD ANESTHESIA: General, LMA EBL: 30 ml FINDINGS: Right thigh hematoma, cavity 13 cm x 11.5 cm. DRAIN: 10 Fr CANDIS drain INDICATION: Romina Kahn is an 83 year-old who has had multiple falls in the past 6 months who presented to the ED after a mechanical fall. She was found to have a right thigh hematoma. Ultrasound suggested that there may be a closed degloving injury. Due to concern for necrosis of the overlying skin and potential infection, evacuation of the hematoma was discussed with the patient and her daughter. I also talked about drain placement into that cavity. They were both in agreement to proceed. DESCRIPTION: The patient was brought to the OR and placed in the supine position on the OR table. She received cefazolin 2g. SCD was placed on the LLE. The patient was warmed. General anesthesia with LMA was administered. The right lateral thigh was prepped and draped in the usual sterile fashion. A time out was called confirming the patient's name, date of , and procedure. A transverse incision was made at the inferior portion of the hematoma. The hematoma was evacuated with suction and ringed forceps. The cavity measured approximately 13 cm (longitudinal) by 11.5 cm (transverse). The cavity was irrigated with warm saline. There was no evidence of active bleeding. A 10 Fr CANDIS drain was placed in the wound and brought out at the medial incision. The CANDIS drain was secured to the skin with a 3-0 prolene. The incision was closed with interrupted 3-0 vicryl in the deep dermal layer. The skin was closed with running 4-0 monocryl. Sterile gauze was placed over the incision and drain. The right thigh was wrapped with an YUDITH bandage. The patient was extubated and brought to recovery in stable condition.
--- NOTE | 2019-03-07 15:33 | CONS ---
CONSULTATION REPORT: DATE OF CONSULT: 03/07/19 ATTENDING ORTHOPEDIC PROVIDER: Dr. Adriel Rice. REASON FOR CONSULTATION: Right pubic rami fracture. HISTORY OF PRESENT ILLNESS: The patient is an 83-year-old female. She has a past medical history significant for CAD, status post CABG; pacemaker; history of stroke 8 years ago. She presents to the emergency room after a fall at home , resulting in a pubic rami fracture. The patient states she had gotten up to retrieve the pillow and when trying to walk with the pillow and her walker, she lost her balance and fell directly on to her right side. It seems that this fracture initially occurred in November 2018. X-rays report a nondisplaced fracture extending to the right superior pubic ramus and acetabulum. On , pelvis CT further characterized this as nondisplaced fracture to the lateral aspect of the right superior pubic ramus and anterior acetabulum. At this time, she was made weightbearing as tolerated. She has had subsequent falls since without any significant displacement of this fracture. She has been walking with her walker without any pain. Today, she reports that she has a large hematoma on the lateral aspect of her right thigh, but she is having no difficulty with ambulation. She was able to ambulate immediately after falling. In the emergency room, she was identified to have a potential closed degloving injury, Almonte-Wilber lesion to the right lateral thigh on ultrasound. She was seen by Dr. Elizabeth who will take her to the operating room today for drainage of this. PAST MEDICAL HISTORY: Significant for coronary artery disease, hypertension, hyperlipidemia, diabetes, history of stroke 8 years ago. PAST SURGICAL HISTORY: CABG, pacemaker placement, bilateral carotid endarterectomy, bilateral knee replacements, right shoulder replacement. ALLERGIES: HYDROXYZINE, IODINE, OXYCODONE, AUGMENTIN. FAMILY HISTORY: Mother with history of CAD. Father with history of COPD, prostate CA. REVIEW OF SYSTEMS: A 14-point review of systems was performed, pertinent negatives and positives in the HPI. PHYSICAL EXAM: Vital Signs: Temperature 97.2, pulse rate 66, respiratory rate 20, oxygen saturation 100% on 2 L, blood pressure 154/75. General: The patient is well appearing, she is in no acute distress. HEENT: Normocephalic, atraumatic. Extraocular movements are intact. Cardiac: S1, S2. Respiratory: Clear to auscultation bilaterally. Abdomen: Soft, nontender. Bowel sounds normoactive. Bilateral upper extremities: Skin envelope intact. Able to flex and extend all joints without pain. Left lower extremity: Skin envelope intact. Able to flex and extend all joints without pain. Negative log roll at the hip. Right lower extremity: There is a large hematoma over the lateral hip. This area is tender. She is tender into the groin as well. Able to flex and extend at the hips 0 to 90 with absolutely no pain. Able to flex and extend at the knee without pain whatsoever. Negative log roll to hip. Negative heel strike. ASSESSMENT: The patient has a right pubic rami fracture with minimal displacement. PLAN: Weightbearing as tolerated. The patient will go to the operating room with General Surgery for evacuation of the hematoma today. She should have repeat x- rays after ambulation to ensure no displacement of this fracture. FATEMEH MILLER [id number]/[facility] #: [id number] MTDZulma
[2019-03-07] MEDS: Metoprolol Succinate XL TAB* 50 MG PO SCH (17:12)
[2019-03-07] MEDS: Furosemide IV* 10 MG/ML VIAL (40 MG) IV SLOW PU SCH (17:13)
[2019-03-07] MEDS: rOPINIRole TAB* 1 MG PO SCH (21:16)
[2019-03-08 06:45] LABS: ABS Eosinophils 0.1 10^3/ul (0-0.6); ABS Lymphocytes 1.8 10^3/ul (1.0-4.8); ABS Monocytes 0.5 10^3/ul (0-0.8); ABS Neutrophils 4.2 10^3/ul (1.5-7.7); Eosinophil % 1.6 %; Hematocrit 25 % (35-47); Hemoglobin 8.1 g/dL (12.0-16.0); Lymphocyte % 27.2 %; Mean Corpuscular HGB Conc 33 g/dL (31-36); Mean Corpuscular Hemoglobin 31 pg (27-31); Mean Corpuscular Volume 92 fL (80-97); Mean Platelet Volume 9.3 fL (7.4-10.4); Nucleated Red Blood Cells % 0.1; Platelet Count 171 10^3/uL (150-450); Red Blood Count 2.66 10^6 /uL (3.70-4.87); Red Cell Distribution Width 20 % (10-15); White Blood Count 6.7 10^3/uL (3.5-10.8)
[2019-03-08 06:59] LABS: BUN/Creatinine Ratio 28.1 (8-20); Calcium 9.3 mg/dL (8.6-10.3); EGFR Non-African American 36.4 (>60); Potassium 4.1 mmol/L (3.5-5.0)
[2019-03-08] MEDS: Furosemide IV* 10 MG/ML VIAL (40 MG) IV SLOW PU SCH ×2 (08:47→17:43)
[2019-03-08] MEDS: Folic Acid TAB* 1 MG PO SCH (08:47)
[2019-03-08] MEDS: Losartan TAB* 25 MG PO SCH (08:47)
[2019-03-08] MEDS: Amiodarone TAB* 200 MG PO SCH (08:48)
[2019-03-08] MEDS: Pantoprazole TAB * 40 MG TAB PO SCH (08:48)
[2019-03-08] MEDS: Magnesium Oxide TAB* 400 MG PO SCH (08:48)
[2019-03-08] MEDS: Cyanocobalamin TAB* 500 MCG PO SCH (08:48)
[2019-03-08] MEDS: Ferrous Sulfate TAB* 325 MG PO SCH (08:48)
[2019-03-08] MEDS: Cholecalciferol TAB* 400 UNIT PO SCH (08:49)
[2019-03-08] MEDS: Acetaminophen TAB* 325 MG PO PRN (14:11)
--- NOTE | 2019-03-08 15:34 | PN ---
Progress Note - Progress Note Date of Service: 03/08/19 Note: Surgery Progress: S: POD #1. Some R thigh pain, but improved vs preop. Some pain w/ ambulation, but mostly bed to chair thus far. O: Vital Signs - 8 hr 03/08/19 03/08/19 03/08/19 07:58 09:24 12:02 Temperature 98.5 F 98.6 F Pulse Rate 59 60 Respiratory 16 16 16 Rate Blood Pressure 129/37 126/46 (mmHg) O2 Sat by Pulse 95 100 Oximetry Intake and Output Last 24 Hours 03/06/19 03/07/19 03/08/19 03/09/19 06:59 06:59 06:59 06:59 Intake Total 1789 360 Output Total 2019 380 Balance -230 -20 Weight 154 lb 153 lb 12.8 oz Intake: IV Fluids 950 LR 850 NS (0.9%) 0 NS 50ML, Cefazolin 2G 100 Oral 840 360 Output: CANDIS #1 170 80 Urine 1850 300 Other: Estimated Void Medium Small Date of Last Bowel 03/07/2019 03/08/2019 Movement # Bowel Movements 1 Estimated Stool Amount Small # Voids 1 1 PE: Gen: sitting up in recliner; NAD RLE: CANDIS drain w/ sanguinous drainage; wound clean; scant drainage on dsg; soft; mild tenderness to palp; no sig mass. Labs: Laboratory Tests 03/07/19 03/08/19 00:33 06:28 Hgb 10.3 L 8.1 L A: s/p evacuation of R thigh hematoma, doing well; post surg drop in Hgb P: cont CANDIS drain and compressive dsg; could be discharged w/ drain. No abx needed at this point. Will recheck CBC in a.m. Office f/u 5-7 d.
[2019-03-08 15:58] LABS: Hematocrit 25 % (35-47)
--- NOTE | 2019-03-08 16:10 | PN ---
Subjective Date of Service: 03/08/19 Interval History: Patient is feeling well this morning. She has some right hip pain from where she landed when she fell but otherwise has no pain at surgical site. She denies headache, visual changes, abd pain, chest pain, difficulty breathing. Objective Active Medications: Acetaminophen (Tylenol Tab*) 650 mg PO Q4H PRN PRN Reason: MILD PAIN or TEMP > 100.4 Last Admin: 03/08/19 14:11 Dose: 650 mg Al Hydrox/Mg Hydrox/Simethicone (Maalox Plus*) 30 ml PO Q6H PRN PRN Reason: INDIGESTION Amiodarone HCl (Cordarone Tab*) 200 mg PO DAILY [facility] Last Admin: 03/08/19 08:48 Dose: 200 mg Cholecalciferol (Vitamin D Tab*) 5,000 unit PO DAILY [facility] Last Admin: 03/08/19 08:49 Dose: 5,000 unit Cyanocobalamin (Vitamin B12 Tab*) 1,000 mcg PO QAM [facility] Last Admin: 03/08/19 08:48 Dose: 1,000 mcg Ferrous Sulfate (Ferrous Sulfate Tab*) 325 mg PO DAILY [facility] Last Admin: 03/08/19 08:48 Dose: 325 mg Folic Acid (Folvite Tab*) 1 mg PO DAILY [facility] Last Admin: 03/08/19 08:47 Dose: 1 mg Furosemide (Lasix Iv*) 40 mg IV SLOW PU 0800,1700 [facility] Last Admin: 03/08/19 08:47 Dose: 40 mg Losartan Potassium (Cozaar Tab*) 50 mg PO DAILY [facility] Last Admin: 03/08/19 08:47 Dose: 50 mg Magnesium Oxide (Magox 400 Tab*) 400 mg PO DAILY [facility] Last Admin: 03/08/19 08:48 Dose: 400 mg Metoprolol Succinate (Toprol Xl Tab*) 50 mg PO QPM [facility] Last Admin: 03/07/19 17:12 Dose: 50 mg Ondansetron HCl (Zofran Inj*) 4 mg IV Q4H PRN PRN Reason: NAUSEA/VOMITING Pantoprazole Sodium (Protonix Tab*) 40 mg PO DAILY [facility] Last Admin: 03/08/19 08:48 Dose: 40 mg Ropinirole HCl (Requip Tab*) 2 mg PO BEDTIME [facility] Last Admin: 03/07/19 21:16 Dose: 2 mg Senna (Senokot 8.6 Mg Tab*) 1 tab PO BID PRN PRN Reason: CONSTIPATION Vital Signs - 8 hr 03/08/19 03/08/19 03/08/19 09:24 12:02 15:19 Temperature 98.6 F Pulse Rate 60 Respiratory 16 16 16 Rate Blood Pressure 126/46 (mmHg) O2 Sat by Pulse 100 Oximetry 03/08/19 15:49 Temperature 98.1 F Pulse Rate 61 Respiratory 16 Rate Blood Pressure 118/38 (mmHg) O2 Sat by Pulse 99 Oximetry Oxygen Devices in Use Now: None Appearance: Elderly white female, laying upright in bed, appearing comfortable and in NAD Eyes: No Scleral Icterus, - - PERRL Ears/Nose/Mouth/Throat: Mucous Membranes Moist Neck: Trachea Midline Respiratory: Symmetrical Chest Expansion and Respiratory Effort, Clear to Auscultation Cardiovascular: RRR, - - grade 3 systolic murmur Abdominal: - - abd soft, nontender, nondistended Extremities: No Clubbing, Cyanosis, - - CANDIS drain in place in right thigh, YUDITH wrap to righ thigh is clean and dry; +1 pitting edema pretibially but no edema on superior half of [place] which is improvement froom yesterday Skin: No Rash or Ulcers Neurological: Alert and Oriented x 3, NL Muscle Strength and Tone Result Diagrams: 03/08/19 15:52 03/08/19 06:28 Microbiology and Other Data: Microbiology 03/07/19 12:30 Anaerobic Culture - Preliminary Wound No Growth Day 1 Gram Stain - Final Wound Culture - Preliminary No Growth Day 1 Assess/Plan/Problems-Billing Assessment: 83 yo female with PMHx frequent falls, CAD, CVA, DMT2, sick sinus and aflutter s /p PM, RA, HTN, restless leg syndrome presents after a mechanical fall at home with large right thigh hematoma. Now s/p hematoma evacuation. - Patient Problems (1) Hematoma Current Visit: Yes Status: Acute Code(s): T14.8XXA - OTHER INJURY OF UNSPECIFIED BODY REGION, INITIAL ENCOUNTER SNOMED Code(s): 159579325 Comment: -developed degloving injury of right thigh due to hematoma after fall at home -s/p hematoma evacuation with Dr. Wylie on 03/07/19 -CANDIS drain in place -general surgery OK with patient being discharged with drain and f/u outpatient -Hgb dropped 2 points today after surgery but stable in the afternoon (2) Acute exacerbation of CHF (congestive heart failure) Current Visit: No Status: Acute Code(s): I50.9 - HEART FAILURE, UNSPECIFIED SNOMED Code(s): 866127946 Comment: -patient weights self daily and admits to weight gain at admission when LE edema noted -PMHx HFrEF, recent EF of 40-45% -LE edema improved today -continue IV lasix BID and home metoprolol, losartan -daily weights and strict I&Os (3) Fall Current Visit: Yes Status: Acute Comment: -mechanical fall at home; uses walker at baseline -PT recommending LILIYA placement, pending -secondary injuries include right thigh hematoma as discussed above and small right frontal hematoma -symptomatic of right hip pain today but pelvic fractures on admission are old from November 2018; no change per ortho (4) CAD (coronary artery disease) Current Visit: Yes Status: Acute Code(s): I25.10 - ATHSCL HEART DISEASE OF [place] CORONARY ARTERY W/O ANG PCTRS SNOMED Code(s): 26570964 Comment: -not on antiplatelet therapy -continue metoprolol (5) Atrial flutter Current Visit: No Status: Acute Code(s): I48.92 - UNSPECIFIED ATRIAL FLUTTER SNOMED Code(s): 6728785 Comment: -additional PMHx of SVT and sick sinus syndrome s/p PPM -continue home amiodarone -patient not on AC outpatient due to frequent falls (6) History of CVA (cerebrovascular accident) Current Visit: Yes Status: Acute Code(s): Z86.73 - PRSNL HX OF TIA (TIA), AND CEREB INFRC W/O RESID DEFICITS SNOMED Code(s): 523189571 Comment: -not on antiplatelet tx (7) HTN (hypertension) Current Visit: No Status: Chronic Code(s): I10 - ESSENTIAL (PRIMARY) HYPERTENSION SNOMED Code(s): 11004441 Comment: - Continue Metoprolol and Losartan - Normotensive (8) Type 2 diabetes mellitus Current Visit: No Status: Chronic Comment: - A1c= 6.3% - Continue with diet control (9) Cervical spine fracture Current Visit: No Status: Acute Code(s): S12.9XXA - FRACTURE OF NECK, UNSPECIFIED, INITIAL ENCOUNTER SNOMED Code(s): 148935520 Comment: - C1 fracture diagnosed in November 2018 admission - Patient has been wearing cervical collar and was supposed to follow up with NSGY outpatient today - Ordered flexion/extension cspine xray per Dr. Womack (10) DVT prophylaxis Current Visit: No Status: Acute Code(s): Z29.9 - ENCOUNTER FOR PROPHYLACTIC MEASURES, UNSPECIFIED SNOMED Code(s): 477687807 Comment: - JENNIFER bertrand with gen surg (11) Full code status Current Visit: No Status: Acute Code(s): Z78.9 - OTHER SPECIFIED HEALTH STATUS SNOMED Code(s): 953634220 Status and Disposition: pending LILIYA placement
[2019-03-08] MEDS ORDERED: Enoxaparin(*) 40 MG/0.4 ML SYR SUBCUT SCH (17:00)
[2019-03-08] MEDS: Metoprolol Succinate XL TAB* 50 MG PO SCH (17:43)
[2019-03-08] MEDS: rOPINIRole TAB* 1 MG PO SCH (20:36)
[2019-03-09 06:15] LABS: ABS Basophils 0.1 10^3/ul (0-0.2); ABS Eosinophils 0.2 10^3/ul (0-0.6); ABS Lymphocytes 1.8 10^3/ul (1.0-4.8); ABS Monocytes 0.5 10^3/ul (0-0.8); ABS Neutrophils 3.8 10^3/ul (1.5-7.7); Hematocrit 23 % (35-47); Hemoglobin 7.7 g/dL (12.0-16.0); Lymphocyte % 28.7 %; Mean Corpuscular HGB Conc 34 g/dL (31-36); Mean Corpuscular Hemoglobin 31 pg (27-31); Mean Corpuscular Volume 92 fL (80-97); Mean Platelet Volume 9.1 fL (7.4-10.4); Platelet Count 159 10^3/uL (150-450); Red Blood Count 2.46 10^6 /uL (3.70-4.87); Red Cell Distribution Width 19 % (10-15); White Blood Count 6.4 10^3/uL (3.5-10.8)
[2019-03-09] MEDS: Acetaminophen TAB* 325 MG PO PRN ×2 (07:44→17:36)
[2019-03-09] MEDS: Furosemide IV* 10 MG/ML VIAL (40 MG) IV SLOW PU SCH (08:24)
[2019-03-09] MEDS: Folic Acid TAB* 1 MG PO SCH (08:30)
[2019-03-09] MEDS: Cholecalciferol TAB* 1000 UNITS PO SCH (08:30)
[2019-03-09] MEDS: Magnesium Oxide TAB* 400 MG PO SCH (08:31)
[2019-03-09] MEDS: Amiodarone TAB* 200 MG PO SCH (08:31)
[2019-03-09] MEDS: Cyanocobalamin TAB* 500 MCG PO SCH (08:31)
[2019-03-09] MEDS: Ferrous Sulfate TAB* 325 MG PO SCH (08:31)
[2019-03-09] MEDS: Pantoprazole TAB * 40 MG TAB PO SCH (08:31)
[2019-03-09] MEDS: Losartan TAB* 25 MG PO SCH (08:31)
--- NOTE | 2019-03-09 10:03 | PN ---
Progress Note - Progress Note Date of Service: 03/09/19 SOAP: Subjective: Pt seen and examined. Objective: Intake & Output 03/08/19 03/09/19 03/09/19 22:59 06:59 14:59 Intake Total 300 480 180 Output Total 275 320 180 Balance 25 160 0 Weight 154 lb 6.4 oz R thigh: incision healing well CANDIS: serosang 25 cc since 7am tender, ecchymotic Assessment: s/p thigh hematoma drainage Plan: continue CANDIS will see tomorrow and possibly remove CANDIS ok for d/c home and follow up as out-pt if necessary
[2019-03-09 10:42] LABS: BUN/Creatinine Ratio 28.8 (8-20); Calcium 9.3 mg/dL (8.6-10.3); EGFR African American 37.4 (>60); EGFR Non-African American 30.9 (>60); Potassium 3.6 mmol/L (3.5-5.0)
--- NOTE | 2019-03-09 11:27 | PN ---
Subjective Date of Service: 03/09/19 Interval History: Patient's pain is well controlled. She does still have intermittent right hip pain but is well controlled. Denies chest pain, difficulty breathing, fever/ chills, abd pain. Has been up to walk today without difficulty. Objective Active Medications: Acetaminophen (Tylenol Tab*) 650 mg PO Q4H PRN PRN Reason: MILD PAIN or TEMP > 100.4 Last Admin: 03/09/19 07:44 Dose: 650 mg Al Hydrox/Mg Hydrox/Simethicone (Maalox Plus*) 30 ml PO Q6H PRN PRN Reason: INDIGESTION Amiodarone HCl (Cordarone Tab*) 200 mg PO DAILY [facility] Last Admin: 03/09/19 08:31 Dose: 200 mg Cholecalciferol (Vitamin D Tab*) 5,000 units PO DAILY [facility] Last Admin: 03/09/19 08:30 Dose: 5,000 units Cyanocobalamin (Vitamin B12 Tab*) 1,000 mcg PO QAM [facility] Last Admin: 03/09/19 08:31 Dose: 1,000 mcg Enoxaparin Sodium (Lovenox(*)) 40 mg SUBCUT Q24H [facility] Last Admin: 03/08/19 17:43 Dose: 40 mg Ferrous Sulfate (Ferrous Sulfate Tab*) 325 mg PO DAILY [facility] Last Admin: 03/09/19 08:31 Dose: 325 mg Folic Acid (Folvite Tab*) 1 mg PO DAILY [facility] Last Admin: 03/09/19 08:30 Dose: 1 mg Losartan Potassium (Cozaar Tab*) 50 mg PO DAILY [facility] Last Admin: 03/09/19 08:31 Dose: 50 mg Magnesium Oxide (Magox 400 Tab*) 400 mg PO DAILY [facility] Last Admin: 03/09/19 08:31 Dose: 400 mg Metoprolol Succinate (Toprol Xl Tab*) 50 mg PO QPM [facility] Last Admin: 03/08/19 17:43 Dose: 50 mg Ondansetron HCl (Zofran Inj*) 4 mg IV Q4H PRN PRN Reason: NAUSEA/VOMITING Pantoprazole Sodium (Protonix Tab*) 40 mg PO DAILY [facility] Last Admin: 03/09/19 08:31 Dose: 40 mg Ropinirole HCl (Requip Tab*) 2 mg PO BEDTIME [facility] Last Admin: 03/08/19 20:36 Dose: 2 mg Senna (Senokot 8.6 Mg Tab*) 1 tab PO BID PRN PRN Reason: CONSTIPATION Vital Signs - 8 hr 03/09/19 03/09/19 07:16 08:00 Temperature 97.8 F Pulse Rate 60 Respiratory 16 16 Rate Blood Pressure 120/40 (mmHg) O2 Sat by Pulse 97 Oximetry Oxygen Devices in Use Now: None Appearance: Elderly white female, sitting in chair, appearing comfortable and in NAD, daughter at bedside Eyes: No Scleral Icterus, - - PERRL Ears/Nose/Mouth/Throat: Mucous Membranes Moist Neck: Trachea Midline Respiratory: Symmetrical Chest Expansion and Respiratory Effort, Clear to Auscultation Cardiovascular: RRR, - - systolic murmur Abdominal: - - abd soft, nontender, nondistended Extremities: - - trace edema to bilateral ankles and inferior aspect of shins Skin: - - ecchymosis to right hip; claritza wrap to right thigh overlaying CANDIS drain insertion point and is clean and dry Neurological: Alert and Oriented x 3, NL Muscle Strength and Tone Result Diagrams: 03/09/19 05:52 03/09/19 10:05 Microbiology and Other Data: Microbiology 03/07/19 12:30 Anaerobic Culture - Preliminary Wound No Growth Day 1 Gram Stain - Final Wound Culture - Preliminary No Growth Day 1 Assess/Plan/Problems-Billing Assessment: 83 yo female with PMHx frequent falls, CAD, CVA, DMT2, sick sinus and aflutter s /p PM, RA, HTN, restless leg syndrome presents after a mechanical fall at home with large right thigh hematoma. Now s/p hematoma evacuation. - Patient Problems (1) Anemia Current Visit: No Status: Acute Code(s): D64.9 - ANEMIA, UNSPECIFIED SNOMED Code(s): 600992198 Comment: -Patient is known to have chronic anema -Now with component of acute blood loss 2/2 surgery -continue folic acid, B12, and iron supplements -continue to monitor H&H (2) MARY (acute kidney injury) Current Visit: No Status: Acute Code(s): N17.9 - ACUTE KIDNEY FAILURE, UNSPECIFIED SNOMED Code(s): 86397888 Comment: -likely 2/2 diuresis -holding diuretics for now and will continue to monitor (3) Hematoma Current Visit: Yes Status: Acute Code(s): T14.8XXA - OTHER INJURY OF UNSPECIFIED BODY REGION, INITIAL ENCOUNTER SNOMED Code(s): 045603289 Comment: -developed degloving injury of right thigh due to hematoma after fall at home -s/p hematoma evacuation with Dr. Wylie on 03/07/19 -CANDIS drain in place -general surgery OK with patient being discharged with drain and f/u outpatient (4) Acute exacerbation of CHF (congestive heart failure) Current Visit: No Status: Acute Code(s): I50.9 - HEART FAILURE, UNSPECIFIED SNOMED Code(s): 364552098 Comment: -patient weighs self daily and admits to weight gain at admission when LE edema noted -PMHx HFrEF, recent EF of 40-45% -continue metoprolol, losartan -d/c IV lasix and holding home diuretics for now considering MARY -daily weights and strict I&Os; daily weights do not appear accurate as I do not believe the patient has truly gained weight considering her edema is significantly improved (5) Fall Current Visit: Yes Status: Acute Comment: -mechanical fall at home; uses walker at baseline -PT recommending LILIYA placement, pending -secondary injuries include right thigh hematoma as discussed above and small right frontal hematoma -symptomatic of right hip pain today but pelvic fractures on admission are old from November 2018; no change per ortho (6) CAD (coronary artery disease) Current Visit: Yes Status: Acute Code(s): I25.10 - ATHSCL HEART DISEASE OF [place] CORONARY ARTERY W/O ANG PCTRS SNOMED Code(s): 07863881 Comment: -not on antiplatelet therapy -continue metoprolol (7) Atrial flutter Current Visit: No Status: Acute Code(s): I48.92 - UNSPECIFIED ATRIAL FLUTTER SNOMED Code(s): 7463271 Comment: -additional PMHx of SVT and sick sinus syndrome s/p PPM -continue home amiodarone -patient not on AC outpatient due to frequent falls (8) History of CVA (cerebrovascular accident) Current Visit: Yes Status: Acute Code(s): Z86.73 - PRSNL HX OF TIA (TIA), AND CEREB INFRC W/O RESID DEFICITS SNOMED Code(s): 817117550 Comment: -not on antiplatelet tx (9) HTN (hypertension) Current Visit: No Status: Chronic Code(s): I10 - ESSENTIAL (PRIMARY) HYPERTENSION SNOMED Code(s): 98889923 Comment: - Continue Metoprolol and Losartan - Normotensive (10) Type 2 diabetes mellitus Current Visit: No Status: Chronic Comment: - A1c= 6.3% - Continue with diet control (11) Cervical spine fracture Current Visit: No Status: Acute Code(s): S12.9XXA - FRACTURE OF NECK, UNSPECIFIED, INITIAL ENCOUNTER SNOMED Code(s): 229218472 Comment: - C1 fracture diagnosed in November 2018 admission - Patient has been wearing cervical collar and was supposed to follow up with NSGY outpatient today - Ordered flexion/extension cspine xray per Dr. Womack; there is small amount of translation of C1 on C2 and Dr. Womack recommends cervical MRI monday - Continue [place] J collar (12) DVT prophylaxis Current Visit: No Status: Acute Code(s): Z29.9 - ENCOUNTER FOR PROPHYLACTIC MEASURES, UNSPECIFIED SNOMED Code(s): 619757634 Comment: - JENNIFER bertrand with gen surg (13) Full code status Current Visit: No Status: Acute Code(s): Z78.9 - OTHER SPECIFIED HEALTH STATUS SNOMED Code(s): 665304993 Status and Disposition: pending LILIYA placement
[2019-03-09 14:45] LABS: Hematocrit 24 % (35-47); Hemoglobin 8.1 g/dL (12.0-16.0)
[2019-03-09] MEDS: Enoxaparin(*) 30 MG/0.3 ML SYR SUBCUT SCH (17:30)
[2019-03-09] MEDS: Metoprolol Succinate XL TAB* 50 MG PO SCH (17:30)
[2019-03-09] MEDS: Senna TAB 8.6 mg* TAB PO PRN (19:51)
[2019-03-09] MEDS: rOPINIRole TAB* 1 MG PO SCH (21:03)
[2019-03-10 06:17] LABS: ABS Basophils 0.1 10^3/ul (0-0.2); ABS Eosinophils 0.2 10^3/ul (0-0.6); ABS Lymphocytes 1.6 10^3/ul (1.0-4.8); ABS Monocytes 0.5 10^3/ul (0-0.8); ABS Neutrophils 4.2 10^3/ul (1.5-7.7); Eosinophil % 2.9 %; Hematocrit 24 % (35-47); Hemoglobin 8.1 g/dL (12.0-16.0); Lymphocyte % 24.8 %; Mean Corpuscular HGB Conc 34 g/dL (31-36); Mean Corpuscular Hemoglobin 31 pg (27-31); Mean Corpuscular Volume 92 fL (80-97); Nucleated Red Blood Cells % 0.1; Platelet Count 173 10^3/uL (150-450); Red Blood Count 2.63 10^6 /uL (3.70-4.87); Red Cell Distribution Width 20 % (10-15); White Blood Count 6.6 10^3/uL (3.5-10.8)
[2019-03-10 06:42] LABS: BUN/Creatinine Ratio 35.2 (8-20); Calcium 9.3 mg/dL (8.6-10.3); EGFR African American 51.2 (>60); EGFR Non-African American 42.3 (>60)
[2019-03-10] MEDS: Amiodarone TAB* 200 MG PO SCH (08:19)
[2019-03-10] MEDS: Losartan TAB* 25 MG PO SCH (08:19)
[2019-03-10] MEDS: Cyanocobalamin TAB* 500 MCG PO SCH (08:19)
[2019-03-10] MEDS: Folic Acid TAB* 1 MG PO SCH (08:20)
[2019-03-10] MEDS: Ferrous Sulfate TAB* 325 MG PO SCH (08:20)
[2019-03-10] MEDS: Magnesium Oxide TAB* 400 MG PO SCH (08:20)
[2019-03-10] MEDS: Pantoprazole TAB * 40 MG TAB PO SCH (08:20)
[2019-03-10] MEDS: Cholecalciferol TAB* 1000 UNITS PO SCH (08:20)
[2019-03-10] MEDS: Acetaminophen TAB* 325 MG PO PRN (08:24)
--- NOTE | 2019-03-10 09:58 | PN ---
Subjective Date of Service: 03/10/19 Interval History: Ms. Kahn is feeling well today. She denies pain at hematoma site. Good appetite - ate entire breakfast. Denies CP, SOB, N/V. She takes off her [place] J collar while eating because it feels too big and gets in the way while eating. She reports LE edema is unchanged. 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 No concerns from nursing. Family History: Unchanged from Admission Social History: Unchanged from Admission Past Medical History: Unchanged from Admission Objective Active Medications: Acetaminophen (Tylenol Tab*) 650 mg PO Q4H PRN MILD PAIN or TEMP > 100.4 Al Hydrox/Mg Hydrox/Simethicone (Maalox Plus*) 30 ml PO Q6H PRN INDIGESTION Amiodarone HCl (Cordarone Tab*) 200 mg PO DAILY [facility] Cholecalciferol (Vitamin D Tab*) 5,000 units PO DAILY [facility] Cyanocobalamin (Vitamin B12 Tab*) 1,000 mcg PO QAM [facility] Enoxaparin Sodium (Lovenox(*)) 30 mg SUBCUT Q24H [facility] Ferrous Sulfate (Ferrous Sulfate Tab*) 325 mg PO DAILY [facility] Folic Acid (Folvite Tab*) 1 mg PO DAILY [facility] Losartan Potassium (Cozaar Tab*) 50 mg PO DAILY [facility] Magnesium Oxide (Magox 400 Tab*) 400 mg PO DAILY [facility] Metoprolol Succinate (Toprol Xl Tab*) 50 mg PO QPM [facility] Ondansetron HCl (Zofran Inj*) 4 mg IV Q4H PRN NAUSEA/VOMITING Pantoprazole Sodium (Protonix Tab*) 40 mg PO DAILY [facility] Ropinirole HCl (Requip Tab*) 2 mg PO BEDTIME [facility] Senna (Senokot 8.6 Mg Tab*) 1 tab PO BID PRN CONSTIPATION Vital Signs - 8 hr 03/10/19 03/10/19 03/10/19 03:17 07:14 07:59 Temperature 97.3 F 97.9 F Pulse Rate 62 63 Respiratory 18 16 16 Rate Blood Pressure 143/51 128/41 (mmHg) O2 Sat by Pulse 100 97 Oximetry Oxygen Devices in Use Now: None Appearance: Elderly female sitting in chair in NAD Ears/Nose/Mouth/Throat: Mucous Membranes Moist Neck: NL Appearance and Movements; NL JVP, Trachea Midline Respiratory: Symmetrical Chest Expansion and Respiratory Effort, Clear to Auscultation Cardiovascular: NL Sounds; No Murmurs; No JVD, RRR Abdominal: NL Sounds; No Tenderness; No Distention Extremities: - - +2 pitting BLE Neurological: Alert and Oriented x 3 Lines/Tubes/Other Access: Clean, Dry and Intact Peripheral IV Nutrition: Taking PO's Result Diagrams: 03/10/19 05:54 03/10/19 05:54 Assess/Plan/Problems-Billing Assessment: Ms. Kahn is an 83 yo F with PMH of frequent falls, CAD, CVA, DMT2, sick sinus and aflutter s/p PM, RA, HTN, restless leg syndrome; presents after a mechanical fall at home with large right thigh hematoma, now s/p hematoma evacuation. - Patient Problems (1) Hematoma Code(s): T14.8XXA - OTHER INJURY OF UNSPECIFIED BODY REGION, INITIAL ENCOUNTER Comment: - Developed degloving injury of right thigh due to hematoma after fall at home - S/p hematoma evacuation with Dr. Wylie on 03/07/19 - CANDIS drain in place - General surgery okay with patient being discharged with drain and f/u outpatient (2) Anemia Code(s): D64.9 - ANEMIA, UNSPECIFIED Comment: - Chronic anema, now with component of acute blood loss secondary to acute blood loss - Trend H&H - Continue folic acid, B12, ferrous sulfate (3) MARY (acute kidney injury) Code(s): N17.9 - ACUTE KIDNEY FAILURE, UNSPECIFIED Comment: - Creatinine down today - Likely secondary to diuresis - Holding diuretics for now and will continue to monitor (4) Acute exacerbation of CHF (congestive heart failure) Code(s): I50.9 - HEART FAILURE, UNSPECIFIED Comment: - Patient weighs self daily and admits to weight gain at admission when LE edema noted - History of HFrEF, recent EF of 40-45% - Daily weights and strict I&Os; daily weights do not appear accurate as I do not believe the patient has truly gained weight considering her edema is significantly improved - Hold diuretics in the setting of MARY - Continue metoprolol, losartan (5) Cervical spine fracture Code(s): S12.9XXA - FRACTURE OF NECK, UNSPECIFIED, INITIAL ENCOUNTER Comment: - C1 fracture diagnosed in November 2018 admission - Has been wearing cervical collar and was supposed to follow up with Neurosurgery outpatient - Ordered flexion/extension c-spine xray per Dr. Womack; there is small amount of translation of C1 on C2 and Dr. Womack recommends cervical MRI monday (ordered) - Continue [place] J collar (6) Fall Comment: - Mechanical fall at home; uses walker at baseline - PT recommending LILIYA placement, pending - Injuries include right thigh hematoma as above and small right frontal hematoma - Pelvic fractures on admission are old from November 2018; no change per Ortho (7) CAD (coronary artery disease) Code(s): I25.10 - ATHSCL HEART DISEASE OF [place] CORONARY ARTERY W/O ANG PCTRS Comment: - Not on antiplatelet therapy - Continue metoprolol (8) Atrial flutter Code(s): I48.92 - UNSPECIFIED ATRIAL FLUTTER Comment: - Also history of SVT and sick sinus syndrome s/p PPM - Not on AC outpatient due to frequent falls - Continue amiodarone (9) HTN (hypertension) Code(s): I10 - ESSENTIAL (PRIMARY) HYPERTENSION Comment: - Normotensive - Continue metoprolol, losartan (10) Type 2 diabetes mellitus Comment: - A1c 6.3% - Diet controlled (11) History of CVA (cerebrovascular accident) Code(s): Z86.73 - PRSNL HX OF TIA (TIA), AND CEREB INFRC W/O RESID DEFICITS Comment: - Not on antiplatelet therapy (12) DVT prophylaxis Code(s): Z29.9 - ENCOUNTER FOR PROPHYLACTIC MEASURES, UNSPECIFIED Comment: - Lovenox (okayed by Surgery) (13) Full code status Code(s): Z78.9 - OTHER SPECIFIED HEALTH STATUS Comment: Status and Disposition: Inpatient. Awaiting LILIYA bed. Attending: Josesito Davis
--- NOTE | 2019-03-10 10:49 | PN ---
Progress Note - Progress Note Date of Service: 03/10/19 SOAP: Subjective: Pt seen and examined. Objective: Intake & Output R thigh: incision healing well CANDIS: serosang 200cc 24hr- drained and place to bulb w/o suction Assessment: s/p thigh hematoma drainage Plan: continue CANDIS will see tomorrow and possibly remove CANDIS ok for d/c home and follow up as out-pt if necessary
--- NOTE | 2019-03-10 11:05 | PN ---
Progress Note - Progress Note Date of Service: 03/10/19 SOAP: Subjective: Pt seen sitting in chair. No complaint of pain today. Has been ambulating. Vital Signs: Temp Pulse Resp BP Pulse Ox 97.9 F 63 16 128/41 97 03/10/19 07:14 03/10/19 07:14 03/10/19 08:00 03/10/19 07:14 03/10/19 07:14 Laboratory Last Values WBC 6.6 10^3/uL (3.5-10.8) 03/10/19 05:54 RBC 2.63 10^6 /uL (3.70-4.87) L 03/10/19 05:54 Hgb 8.1 g/dL (12.0-16.0) L 03/10/19 05:54 Hct 24 % (35-47) L 03/10/19 05:54 MCV 92 fL (80-97) 03/10/19 05:54 MCH 31 pg (27-31) 03/10/19 05:54 MCHC 34 g/dL (31-36) 03/10/19 05:54 RDW 20 % (10-15) H 03/10/19 05:54 Plt Count 173 10^3/uL (150-450) 03/10/19 05:54 MPV 9.0 fL (7.4-10.4) 03/10/19 05:54 Neut % (Auto) 63.7 % 03/10/19 05:54 Lymph % (Auto) 24.8 % 03/10/19 05:54 [place] % (Auto) 7.6 % 03/10/19 05:54 Eos % (Auto) 2.9 % 03/10/19 05:54 Baso % (Auto) 1.0 % 03/10/19 05:54 Absolute Neuts (auto) 4.2 10^3/ul (1.5-7.7) 03/10/19 05:54 Absolute Lymphs (auto) 1.6 10^3/ul (1.0-4.8) 03/10/19 05:54 Absolute Monos (auto) 0.5 10^3/ul (0-0.8) 03/10/19 05:54 Absolute Eos (auto) 0.2 10^3/ul (0-0.6) 03/10/19 05:54 Absolute Basos (auto) 0.1 10^3/ul (0-0.2) 03/10/19 05:54 Absolute Nucleated RBC 0.0 10^3/ul 03/10/19 05:54 Nucleated RBC % 0.1 03/10/19 05:54 INR (Anticoag Therapy) 1.29 (0.82-1.09) H 03/07/19 00:33 APTT 33.5 seconds (26.0-38.0) 03/07/19 00:33 Sodium 130 mmol/L (135-145) L 03/10/19 05:54 Potassium 4.0 mmol/L (3.5-5.0) 03/10/19 05:54 Chloride 95 mmol/L (101-111) L 03/10/19 05:54 Carbon Dioxide 29 mmol/L (22-32) 03/10/19 05:54 Anion Gap 6 mmol/L (2-11) 03/10/19 05:54 BUN 43 mg/dL (6-24) H 03/10/19 05:54 Creatinine 1.22 mg/dL (0.51-0.95) H 03/10/19 05:54 Est GFR ( Amer) 51.2 (>60) 03/10/19 05:54 Est GFR (Non-Af Amer) 42.3 (>60) 03/10/19 05:54 BUN/Creatinine Ratio 35.2 (8-20) H 03/10/19 05:54 Glucose 116 mg/dL (70-100) H 03/10/19 05:54 Hemoglobin A1c 6.3 % (4.0-5.6) H 03/07/19 00:33 Calcium 9.3 mg/dL (8.6-10.3) 03/10/19 05:54 Objective: A&O X3, NAD Cervical collar intact, No edema LE, NVI distally Assessment: 83 yo female right pubic rami fracture Plan: Will check another pelvic xray WBAT Pain control
[2019-03-10] MEDS: Metoprolol Succinate XL TAB* 50 MG PO SCH (17:57)
[2019-03-10] MEDS: Enoxaparin(*) 30 MG/0.3 ML SYR SUBCUT SCH (17:57)
[2019-03-10] MEDS: Senna TAB 8.6 mg* TAB PO PRN (20:07)
[2019-03-10] MEDS: rOPINIRole TAB* 1 MG PO SCH (20:07)
[2019-03-11] MEDS: Acetaminophen TAB* 325 MG PO PRN ×2 (02:54→17:14)
[2019-03-11 05:02] LABS: ABS Eosinophils 0.2 10^3/ul (0-0.6); ABS Lymphocytes 1.8 10^3/ul (1.0-4.8); ABS Monocytes 0.5 10^3/ul (0-0.8); ABS Neutrophils 3.8 10^3/ul (1.5-7.7); Eosinophil % 2.7 %; Hematocrit 24 % (35-47); Lymphocyte % 28.5 %; Mean Corpuscular HGB Conc 33 g/dL (31-36); Mean Corpuscular Hemoglobin 31 pg (27-31); Mean Corpuscular Volume 92 fL (80-97); Mean Platelet Volume 8.7 fL (7.4-10.4); Platelet Count 182 10^3/uL (150-450); Red Blood Count 2.61 10^6 /uL (3.70-4.87); Red Cell Distribution Width 19 % (10-15); White Blood Count 6.3 10^3/uL (3.5-10.8)
[2019-03-11] MEDS: Cyanocobalamin TAB* 500 MCG PO SCH (09:22)
[2019-03-11] MEDS: Cholecalciferol TAB* 1000 UNITS PO SCH (09:22)
[2019-03-11] MEDS: Magnesium Oxide TAB* 400 MG PO SCH (09:22)
[2019-03-11] MEDS: Folic Acid TAB* 1 MG PO SCH (09:22)
[2019-03-11] MEDS: Pantoprazole TAB * 40 MG TAB PO SCH (09:23)
[2019-03-11] MEDS: Losartan TAB* 25 MG PO SCH (09:23)
[2019-03-11] MEDS: Amiodarone TAB* 200 MG PO SCH (09:23)
[2019-03-11] MEDS: Ferrous Sulfate TAB* 325 MG PO SCH (09:23)
--- NOTE | 2019-03-11 09:25 | PN ---
Progress Note - Progress Note Date of Service: 03/11/19 Note: No complaints this morning. Right thigh is sore but does not bother her much. Denies chest pain, SOB, abdominal pain. Eating well. Vital Signs - 12 hr Temp Pulse Resp BP Pulse Ox 03/11/19 07:19 97.4 F 66 18 153/57 99 03/11/19 02:55 99.6 F 64 16 139/54 98 03/10/19 23:07 98.1 F 59 16 138/45 100 Intake & Output 03/10/19 03/11/19 03/11/19 22:59 06:59 14:59 Intake Total 1260 150 480 Output Total 350 300 200 Balance 910 -150 280 Weight 154 lb 11.2 oz Intake: Oral 1260 150 480 Output: Urine 350 300 200 Other: # Bowel Movements 1 Estimated Stool Amount Small General: NAD, sitting in chair. C collar on. Extremities: Right lateral thigh with ecchymosis. Incision c/d/i. CANDIS drain with serosanguinous fluid, 50 ml/24h. BLE edema Neuro: Alert, oriented x3 Laboratory Results - last 24 hr 03/11/19 04:50 WBC 6.3 RBC 2.61 L Hgb 8.0 L Hct 24 L MCV 92 MCH 31 MCHC 33 RDW 19 H Plt Count 182 MPV 8.7 Neut % (Auto) 60.2 Lymph % (Auto) 28.5 [place] % (Auto) 7.9 Eos % (Auto) 2.7 Baso % (Auto) 0.7 Absolute Neuts (auto) 3.8 Absolute Lymphs (auto) 1.8 Absolute Monos (auto) 0.5 Absolute Eos (auto) 0.2 Absolute Basos (auto) 0.0 Absolute Nucleated RBC 0.0 Nucleated RBC % 0.0 A&P 83F with right thigh hematoma and closed degloving injury s/p mechanical fall. s /p I&D hematoma POD 4. -Continue CANDIS drain to bulb suction. -Cultures negative to date. -May be discharged with CANDIS with plan for follow up in clinic 3-4 days after discharge.
--- NOTE | 2019-03-11 10:06 | PN ---
Progress Note - Progress Note Date of Service: 03/11/19 SOAP: Subjective: []Pt seen and examined at bedside. She feels well without CP, SOB, dizziness or nausea. She has no right hip or pelvis pain. Has been walking with rolling walker without difficulty. Objective: []Gen: NAD RLE: dressing CDI, drain with serosanguinous drainage. Thigh soft, df/pf intact , dp2+, sensation intact to light touch distally, dp2+ Calves supple and nontender without erythema, edema or palpable cords Assessment: []Right pubic rami fractures, unchanged sp ambulatioun sp Hematoma evacuation by gen surg Plan: []WBAT PT/OT ready for DC from ortho standpoint Vital Signs Temp 97.4 F 03/11/19 07:19 Pulse 66 03/11/19 07:19 Resp 18 03/11/19 07:19 BP 153/57 03/11/19 07:19 Pulse Ox 99 03/11/19 07:19 Intake & Output 03/10/19 03/11/19 03/11/19 18:59 06:59 18:59 Intake Total 1760 1050 480 Output Total 301 500 420 Balance 1459 550 60 Weight 154 lb 11.2 oz Intake: Oral 1760 1050 480 Output: CANDIS #1 50 70 Urine 251 500 350 Other: Estimated Void Small Date of Last Bowel 03/11/19 Movement # Bowel Movements 1 1 1 Estimated Stool Amount Small Small Medium # Voids 1 Laboratory Last Values WBC 6.3 10^3/uL (3.5-10.8) 03/11/19 04:50 RBC 2.61 10^6 /uL (3.70-4.87) L 03/11/19 04:50 Hgb 8.0 g/dL (12.0-16.0) L 03/11/19 04:50 Hct 24 % (35-47) L 03/11/19 04:50 MCV 92 fL (80-97) 03/11/19 04:50 MCH 31 pg (27-31) 03/11/19 04:50 MCHC 33 g/dL (31-36) 03/11/19 04:50 RDW 19 % (10-15) H 03/11/19 04:50 Plt Count 182 10^3/uL (150-450) 03/11/19 04:50 MPV 8.7 fL (7.4-10.4) 03/11/19 04:50 Neut % (Auto) 60.2 % 03/11/19 04:50 Lymph % (Auto) 28.5 % 03/11/19 04:50 [place] % (Auto) 7.9 % 03/11/19 04:50 Eos % (Auto) 2.7 % 03/11/19 04:50 Baso % (Auto) 0.7 % 03/11/19 04:50 Absolute Neuts (auto) 3.8 10^3/ul (1.5-7.7) 03/11/19 04:50 Absolute Lymphs (auto) 1.8 10^3/ul (1.0-4.8) 03/11/19 04:50 Absolute Monos (auto) 0.5 10^3/ul (0-0.8) 03/11/19 04:50 Absolute Eos (auto) 0.2 10^3/ul (0-0.6) 03/11/19 04:50 Absolute Basos (auto) 0.0 10^3/ul (0-0.2) 03/11/19 04:50 Absolute Nucleated RBC 0.0 10^3/ul 03/11/19 04:50 Nucleated RBC % 0.0 03/11/19 04:50 INR (Anticoag Therapy) 1.29 (0.82-1.09) H 03/07/19 00:33 APTT 33.5 seconds (26.0-38.0) 03/07/19 00:33 Sodium 130 mmol/L (135-145) L 03/10/19 05:54 Potassium 4.0 mmol/L (3.5-5.0) 03/10/19 05:54 Chloride 95 mmol/L (101-111) L 03/10/19 05:54 Carbon Dioxide 29 mmol/L (22-32) 03/10/19 05:54 Anion Gap 6 mmol/L (2-11) 03/10/19 05:54 BUN 43 mg/dL (6-24) H 03/10/19 05:54 Creatinine 1.22 mg/dL (0.51-0.95) H 03/10/19 05:54 Est GFR ( Amer) 51.2 (>60) 03/10/19 05:54 Est GFR (Non-Af Amer) 42.3 (>60) 03/10/19 05:54 BUN/Creatinine Ratio 35.2 (8-20) H 03/10/19 05:54 Glucose 116 mg/dL (70-100) H 03/10/19 05:54 Hemoglobin A1c 6.3 % (4.0-5.6) H 03/07/19 00:33 Calcium 9.3 mg/dL (8.6-10.3) 03/10/19 05:54
--- NOTE | 2019-03-11 14:47 | PN ---
Subjective Date of Service: 03/11/19 Interval History: Ms. Kahn is feeling well today. She offers no complaints. Has [place] J collar in place. She still thinks the collar is not fitting well, but it is tolerable. No hip pain. Denies CP, SOB. No concerns from nursing. Family History: Unchanged from Admission Social History: Unchanged from Admission Past Medical History: Unchanged from Admission Objective Active Medications: Acetaminophen (Tylenol Tab*) 650 mg PO Q4H PRN MILD PAIN or TEMP > 100.4 Al Hydrox/Mg Hydrox/Simethicone (Maalox Plus*) 30 ml PO Q6H PRN INDIGESTION Amiodarone HCl (Cordarone Tab*) 200 mg PO DAILY JIGAR Cholecalciferol (Vitamin D Tab*) 5,000 units PO DAILY JIGAR Cyanocobalamin (Vitamin B12 Tab*) 1,000 mcg PO QAM JIGAR Enoxaparin Sodium (Lovenox(*)) 30 mg SUBCUT Q24H JIGAR Ferrous Sulfate (Ferrous Sulfate Tab*) 325 mg PO DAILY JIGAR Folic Acid (Folvite Tab*) 1 mg PO DAILY JIGAR Losartan Potassium (Cozaar Tab*) 50 mg PO DAILY JIGAR Magnesium Oxide (Magox 400 Tab*) 400 mg PO DAILY JIGAR Metoprolol Succinate (Toprol Xl Tab*) 50 mg PO QPM JIGAR Ondansetron HCl (Zofran Inj*) 4 mg IV Q4H PRN NAUSEA/VOMITING Pantoprazole Sodium (Protonix Tab*) 40 mg PO DAILY JIGAR Ropinirole HCl (Requip Tab*) 2 mg PO BEDTIME JIGAR Senna (Senokot 8.6 Mg Tab*) 1 tab PO BID PRN CONSTIPATION Vital Signs - 8 hr 03/11/19 03/11/19 03/11/19 07:19 08:00 11:15 Temperature 97.4 F 97.4 F Pulse Rate 66 60 Respiratory 18 18 17 Rate Blood Pressure 153/57 128/40 (mmHg) O2 Sat by Pulse 99 100 Oximetry Oxygen Devices in Use Now: None Appearance: Elderly female sitting in chair in NAD Ears/Nose/Mouth/Throat: Mucous Membranes Moist Neck: NL Appearance and Movements; NL JVP, Trachea Midline Respiratory: Symmetrical Chest Expansion and Respiratory Effort, Clear to Auscultation Cardiovascular: NL Sounds; No Murmurs; No JVD Abdominal: NL Sounds; No Tenderness; No Distention Extremities: - - Mild nonpitting BLE Neurological: Alert and Oriented x 3 Lines/Tubes/Other Access: Clean, Dry and Intact Peripheral IV Nutrition: Taking PO's Result Diagrams: 03/11/19 04:50 03/10/19 05:54 Assess/Plan/Problems-Billing Assessment: Ms. Kahn is an 83 yo F with PMH of frequent falls, CAD, CVA, DMT2, sick sinus and aflutter s/p PM, RA, HTN, restless leg syndrome; presents after a mechanical fall at home with large right thigh hematoma, now s/p hematoma evacuation. - Patient Problems (1) Hematoma Code(s): T14.8XXA - OTHER INJURY OF UNSPECIFIED BODY REGION, INITIAL ENCOUNTER Comment: - Developed degloving injury of right thigh due to hematoma after fall at home - S/p hematoma evacuation with Dr. Wylie on 03/07/19 - CANDIS drain in place - General surgery okay with patient being discharged with drain and f/u outpatient (2) Anemia Code(s): D64.9 - ANEMIA, UNSPECIFIED Comment: - Chronic anema, now with component of acute blood loss secondary to acute blood loss - Trend H&H - Continue folic acid, B12, ferrous sulfate (3) MARY (acute kidney injury) Code(s): N17.9 - ACUTE KIDNEY FAILURE, UNSPECIFIED Comment: - Creatinine down today - Likely secondary to diuresis - Holding diuretics for now and will continue to monitor (4) Acute exacerbation of CHF (congestive heart failure) Code(s): I50.9 - HEART FAILURE, UNSPECIFIED Comment: - Patient weighs self daily and admits to weight gain at admission when LE edema noted - History of HFrEF, recent EF of 40-45% - Daily weights and strict I&Os; daily weights do not appear accurate as I do not believe the patient has truly gained weight considering her edema is significantly improved - Hold diuretics in the setting of MARY - Continue metoprolol, losartan (5) Cervical spine fracture Code(s): S12.9XXA - FRACTURE OF NECK, UNSPECIFIED, INITIAL ENCOUNTER Comment: - C1 fracture diagnosed in November 2018 admission - Has been wearing cervical collar and was supposed to follow up with Neurosurgery outpatient - Ordered flexion/extension c-spine xray per Dr. Womack; there is small amount of translation of C1 on C2 and Dr. Womack recommends cervical MRI - Patient has pacemaker and MRI will be difficult to obtain, so will need to check with Neurosurgery to determine need and timeframe for MRI; ideally she could be d/c'd to [facility] with outpatient f/u, but need Neurosurgery clearance prior to d/c - [place] J collar (6) Fall Comment: - Mechanical fall at home; uses walker at baseline - PT recommending [facility] placement, pending - Injuries include right thigh hematoma as above and small right frontal hematoma - Pelvic fractures on admission are old from November 2018; no change per Ortho (7) CAD (coronary artery disease) Code(s): I25.10 - ATHSCL HEART DISEASE OF [place] CORONARY ARTERY W/O ANG PCTRS Comment: - Not on antiplatelet therapy - Continue metoprolol (8) Atrial flutter Code(s): I48.92 - UNSPECIFIED ATRIAL FLUTTER Comment: - Also history of SVT and sick sinus syndrome s/p PPM - Not on AC outpatient due to frequent falls - Continue amiodarone (9) HTN (hypertension) Code(s): I10 - ESSENTIAL (PRIMARY) HYPERTENSION Comment: - Normotensive - Continue metoprolol, losartan (10) Type 2 diabetes mellitus Comment: - A1c 6.3% - Diet controlled (11) History of CVA (cerebrovascular accident) Code(s): Z86.73 - PRSNL HX OF TIA (TIA), AND CEREB INFRC W/O RESID DEFICITS Comment: - Not on antiplatelet therapy (12) DVT prophylaxis Code(s): Z29.9 - ENCOUNTER FOR PROPHYLACTIC MEASURES, UNSPECIFIED Comment: - Lovenox (okayed by Surgery) (13) Full code status Code(s): Z78.9 - OTHER SPECIFIED HEALTH STATUS Comment: Status and Disposition: Inpatient. Has [facility] bed at [facility], but need Neurosurgery to clear patient for d/c. Attending: Juan C Cummins
[2019-03-11] MEDS: Metoprolol Succinate XL TAB* 50 MG PO SCH (17:14)
[2019-03-11] MEDS: Enoxaparin(*) 30 MG/0.3 ML SYR SUBCUT SCH (17:15)
--- NOTE | 2019-03-11 20:11 | PN ---
Progress Note - Progress Note Date of Service: 03/11/19 SOAP: Subjective: [] Patient was seen this pm. No events ON. On MJ collar. Ambulates, Voids, Tolerates PO well. No neck or back pain Objective: []VSS AAOx3 MARIANNE, CN II-XII grossly intact Motor 4-5/5 all extremities, No pronator drif Sensory grossly intact to light touch. No TTP C/T/L sopine, Free ROM C spine. Assessment: [] 83 yof C1 fracture Plan: [] Monitor VS, Neurochecks F/E is suspicious for C1-2 min listhesis in Flexion views. Not sure if this is related to rotation of image. PIPE seems stable. Would recommend repeat C spine XR in am with F/E .Ok to remove collar for XR. If listhesis is confirmed, would recommend to maintain MJ collar and schedule MRI of c spine as outpatient and follow up in my office in 2-3 weeks. Appreciate IM care, Elias Womack MD
[2019-03-11] MEDS: rOPINIRole TAB* 1 MG PO SCH (21:13)
[2019-03-12] MEDS: Acetaminophen TAB* 325 MG PO PRN ×2 (02:36→14:33)
[2019-03-12] MEDS: Cholecalciferol TAB* 1000 UNITS PO SCH (08:13)
[2019-03-12] MEDS: Magnesium Oxide TAB* 400 MG PO SCH (08:13)
[2019-03-12] MEDS: Pantoprazole TAB * 40 MG TAB PO SCH (08:14)
[2019-03-12] MEDS: Amiodarone TAB* 200 MG PO SCH (08:14)
[2019-03-12] MEDS: Ferrous Sulfate TAB* 325 MG PO SCH (08:14)
[2019-03-12] MEDS: Cyanocobalamin TAB* 500 MCG PO SCH (08:14)
[2019-03-12] MEDS: Losartan TAB* 25 MG PO SCH (08:14)
[2019-03-12] MEDS: Folic Acid TAB* 1 MG PO SCH (08:14)
--- NOTE | 2019-03-12 09:22 | PN ---
Progress Note - Progress Note Date of Service: 03/12/19 Note: No complaints this morning. Tolerating regular diet. Denies right thigh pain. Denies chest pain or shortness of breath. [facility]. Vital Signs - 12 hr Temp Pulse Resp BP Pulse Ox 03/12/19 07:13 97.6 F 60 16 143/51 99 03/12/19 05:18 97.8 F 62 16 152/50 97 03/11/19 23:10 97.5 F 60 17 141/52 100 General: NAD, sitting up in bed. Head: Ecchymosis right forehead CV: Regular rate and rhythm. Chest: Clear to auscultation Abdomen: Soft, nontender, nondistended Extremities: Ecchymosis lateral right thigh. Incision c/d/i. CANDIS drain 80 ml/24h , serosanguinous fluid. Neuro: Alert, oriented x3 A&P: 83F with right thigh hematoma and closed degloving injury s/p I&D hematoma. -Continue CANDIS drain to bulb suction. May be discharged with drain. Record drain output. Follow up in clinic for drain removal.
[2019-03-12 11:21] VITALS: BP 156/50
--- NOTE | 2019-03-12 13:44 | DS ---
CC: Dr. Kanu Bhardwaj; Dr. Melody Wylie; Dr. Kamar Womack * DISCHARGE SUMMARY: DATE OF ADMISSION: 03/07/19 DATE OF DISCHARGE: 03/12/19 PRIMARY CARE PROVIDER: Dr. Kanu Bhardwaj. GENERAL SURGEON: Dr. Melody Wylie. NEUROSURGEON: Dr. Kamar Womack. ATTENDING PHYSICIAN: Dr. Juan C Cummins.* (DICTATED BY RUBY MARTINEZ NP) PRIMARY DIAGNOSES: 1. Right hip hematoma secondary to mechanical fall status post evacuation on . 2. Acute blood loss anemia superimposed on chronic anemia. 3. Acute kidney injury. 4. Acute on chronic heart failure with reduced ejection fraction, compensated. 5. C1 fracture. 6. Rami fracture. SECONDARY DIAGNOSES: 1. Coronary artery disease. 2. Atrial flutter. 3. Hypertension. 4. Diabetes mellitus type 2. 5. History of cerebrovascular accident. STUDIES WHILE IN THE HOSPITAL: 1. Right hip x-ray on 03/07/19 reads as minimally displaced right superior and inferior rami fractures. 2. Right hip ultrasound on 03/07/19 reads as large fluid collection in the lateral aspect of the thigh. This does raise the possibility of a closed degloving injury or a [place] lesion. No evidence of active bleeding. 3. Brain CT on 03/07/19 reads as scalp hematoma overlying the right frontal calvarium. No underlying fracture. No acute intracranial hemorrhage or intracranial mass. 4. Cervical spine CT on 03/07/19 reads as no acute fracture involving the cervical vertebral body or posterior elements. Old fractures involving the base of the posterior arch of C1 on both sides. Light anterolisthesis of C3 on C4 and C7 on T1 by a few millimeters. This is secondary to degenerative changes of the facet joints and the disk space. Multilevel degenerative cervical disk disease and facet disease. This is coupled with calcification of the posterior longitudinal ligament. This is not significant at the level of C5 -C6 and C7. No significant central canal stenosis. Variable degrees of neural foraminal narrowing secondary to degenerative changes of the uncovertebral joints and facet joints. CT of 02/25/19, no new findings. 5. EKG on 03/07/19 shows atrial flutter versus normal sinus rhythm with a rate of 66, left bundle branch block. This was consistent with previous EKG on file. 6. Cervical spine x-ray on 03/07/19 reads as there is minimal anterior translation of the spinal laminar line from C1-C2 on flexion. No obvious fracture is noted. The possibility of a ligamentous laxity should be considered. 7. Pelvis x-ray on 03/10/19 reads as minimally displaced right superior and inferior pubic rami fractures with unchanged alignment. Osteopenia. Vascular calcification. Degenerative disease. 8. Cervical spine x-ray on 03/12/19 reads as limited lateral views of the cervical spine. Anterolisthesis of C3 on C4. There is no subluxation with flexion and extension however there is essentially no excursion with flexion and extension. 9. Cervical spine CT on 03/12/19 reads as persistent fractures of the posterior arch of C1. There is minimal widening of the atlantoaxial interval with flexion, with preservation of the posterior laminar line alignment, suggestive of some degree of ligamentous laxity, likely degenerative. The fracture is stable with flexion and extension. Degenerative disc disease and osteoarthritis. CONSULTATIONS WHILE IN THE HOSPITAL: 1. Dr. Wylie from Surgery. 2. FATEMEH Casarez from Orthopedics. 3. Dr. Garibay and FATEMEH Osman from Surgery. 4. Dr. Womack from Neurosurgery. PROCEDURES WHILE IN THE HOSPITAL: Right thigh hematoma evacuation with CANDIS drain placement on 03/07/19. HISTORY OF PRESENT ILLNESS AND HOSPITAL COURSE: Ms. Kahn is an 83-year-old female with past medical history of C1 fracture and nondisplaced pelvic fracture in 2019, hypertension, hyperlipidemia, rheumatoid arthritis, type 2 diabetes, CVA, atrial flutter with left bundle branch block, coronary artery disease status post CABG, HFrEF and mild dementia who presented to the emergency room on 03/07/19 with complaints of leg pain after a fall. Please see the history and physical by FATEMEH Grullon for complete summary of the events leading up to this hospitalization. In short, the patient had a mechanical fall at home, during which she did strike her head and fell onto her right hip. She was brought into the emergency room where she had imaging as noted above showing a significant hematoma measuring 10 x 4.6 x 7.7 cm. Surgery consulted and determined that there was need for intervention and so the patient was admitted by the hospitalist service. The patient was taken for surgery on the day of admission for evacuation of the hematoma and a CANDIS drain was left in place, which remains in place at this time. Hematoma was successfully evacuated. The patient is noted to have some acute on chronic anemia secondary to blood loss from this hematoma. She initially was treated for a mild CHF exacerbation and then ultimately diuretics were held due to some mild acute kidney injury secondary to diuresis. Orthopedics was consulted due to the patient's pelvic fracture, they determined that no intervention is necessary and the patient may be weightbearing as tolerated. The patient is noted to have a C1 fracture that she sustained in 12/09/18. She has had poor outpatient followup, so Dr. Womack has been involved during this hospital stay. She has had multiple images of the neck and at this point, remains in a [place] J collar. She had another x-ray this morning. I did touch base with Dr. Womack who felt as though it was additionally necessary to obtain a CT of the cervical spine due to concerns for listhesis. The patient did have a cervical spine CT, Dr. Womack has reviewed this and has determined that there may still be some joint instability. He has recommended that the patient continue to wear her [place] J collar and follow up with him in 1 month. At this point, the patient has been cleared for discharge by General Surgery, Orthopedics and Neurosurgery. She is medically stable for discharge, no complaints. PHYSICAL EXAMINATION: On exam, she offers no complaints. She is looking forward to going to rehab. She is alert and oriented x4 with no focal neurological deficits. Heart has a regular rate and rhythm without murmurs, rubs or gallops . Lungs are clear to auscultation without rhonchi, wheezes, or rubs. There is +2 pitting edema to bilateral lower extremities, which is close to the patient's baseline. Abdomen is soft and tender. A CANDIS drain remains in place to the right lateral thigh and there is still extensive bruising to that area. Physical exam is otherwise benign. Ms. Kahn is stable for discharge. Most recent vitals are as follows: Temp 98.2, heart rate 61, respiratory rate 16, oxygen saturation 100% on room air, blood pressure 156/50. DISCHARGE MEDICATIONS: Continued: 1. Amiodarone 200 mg p.o. daily. 2. Cholecalciferol 5000 units p.o. daily. 3. Vitamin B12 2500 mcg p.o. daily. 4. Ferrous sulfate 325 mg p.o. daily. 5. Folic acid 100 mg p.o. daily. 6. Losartan 50 mg p.o. daily. 7. Magnesium oxide 400 mg p.o. daily. 8. Metoprolol succinate 50 mg p.o. at bedtime. 9. Pantoprazole 40 mg p.o. daily. 10. Requip 2 mg p.o. at bedtime. 11. Acetaminophen 650 mg p.o. q.6 hours p.r.n. fever or pain. 12. Melatonin 5 mg p.o. at bedtime. 13. Torsemide 20 mg p.o. daily. DISCHARGE PLAN: Ms. Kahn will be discharged to subacute rehab. Activity per Orthopedics, will be weightbearing as tolerated. Diet will be heart healthy , caffeine okay. Medications are noted above, the patient can continue her usual medications, not made any changes to these. The patient does not need any specific followup with Orthopedics unless she experiences additional or changed pain. She will need to follow up with Surgery for removal of the CANDIS drain. They have advised that drain output should be recorded and documented and she should follow up in 3 to 4 days in the office. She will need follow up with Dr. Womack in 1 month, but she will need to have a x-ray of the cervical spine prior to that appointment. I have provided her with an order in her discharge paperwork so this can be arranged. She should follow up with a provider at the rehab and should follow up with her primary care provider after discharge. She should return to the emergency room or nearest hospital for any worsening of symptoms, shortness of breath, lightheadedness, dizziness, chest discomfort, high fevers, chills, night sweats, loss of consciousness or any other worrisome signs or symptoms. DISCHARGE CONDITION: Stable. DISCHARGE DISPOSITION: Detention Facility, [facility]. This is a summarized report of a complex medical history and hospital stay. For further details, please see the entire medical record. TIME SPENT: Approximately 60 minutes was spent on this discharge. RUBY MARTINEZ NP [id number]/[facility] #: [id number] [facility] DIVISIONZulma
== END 2019-03-12 15:10 | DRG 604 ==
LOC: ED 23:58 → SSU 03-07 09:01
PROVIDERS: ADMIT Physician Assistant; ATTEND Internal Medicine
PROC: 0JCL0ZZ Extirpation of Matter from Right Upper Leg Subcutaneous Tissue and Fascia, Open Approach (ICD-10-PCS; principal; 2019-03-07 16:30)
DX: S70.11XA Contusion of right thigh, initial encounter (principal); I50.23 Acute on chronic systolic (congestive) heart failure; S32.591A Other specified fracture of right pubis, initial encounter for closed fracture; S12.9XXA Fracture of neck, unspecified, initial encounter; I48.92 Unspecified atrial flutter; N17.9 Acute kidney failure, unspecified; D62 Acute posthemorrhagic anemia; I25.10 Atherosclerotic heart disease of native coronary artery without angina pectoris; E78.5 Hyperlipidemia, unspecified; E11.9 Type 2 diabetes mellitus without complications; Z96.653 Presence of artificial knee joint, bilateral; Z96.611 Presence of right artificial shoulder joint; I49.5 Sick sinus syndrome; W19.XXXA Unspecified fall, initial encounter; E78.00 Pure hypercholesterolemia, unspecified; K21.9 Gastro-esophageal reflux disease without esophagitis; R29.6 Repeated falls; M06.9 Rheumatoid arthritis, unspecified; I44.7 Left bundle-branch block, unspecified; G25.81 Restless legs syndrome; I07.1 Rheumatic tricuspid insufficiency; Z86.73 Personal history of transient ischemic attack (TIA), and cerebral infarction without residual deficits; Z95.1 Presence of aortocoronary bypass graft; Z95.0 Presence of cardiac pacemaker; Z88.8 Allergy status to other drugs, medicaments and biological substances; Z88.5 Allergy status to narcotic agent; Z88.0 Allergy status to penicillin; Z91.041 Radiographic dye allergy status; Y92.009 Unspecified place in unspecified non-institutional (private) residence as the place of occurrence of the external cause; Z79.899 Other long term (current) drug therapy
CPT/HCPCS: 36415; 70450; 72040; 72125; 72190; 80048; 83036; 85014; 85018; 85025; 85610; 85730; 87070; 87073; 87205; 93005; 99285; A9270-GY; J0690; J1650; J1940; J2405; J2704; J3010

== ENCOUNTER 2020-12-31 08:10 | Inpatient (IN) ==
[2020-12-31] MEDS ORDERED: Magnesium Hydroxide LIQ 30 ML UDC PO PRN (11:54)
[2020-12-31] MEDS ORDERED: Lactulose 30 ml UDC PO PRN (11:54)
[2020-12-31] MEDS ORDERED: Ondansetron 4 mg VIAL 2 MG/ML 2 ml VIAL IV PRN (11:54)
[2020-12-31] MEDS ORDERED: diPHENhydraMINE 25 mg TAB PO PRN (11:54)
[2020-12-31] MEDS ORDERED: Ondansetron ODT 4 mg TAB 4 MG TAB PO PRN (11:54)
[2020-12-31] MEDS ORDERED: diPHENhydraMINE IV 50 MG/ML 1 ml VIAL (BENADRYL) IV PRN (11:54)
[2020-12-31 12:57] LABS: ABS Eosinophils 0.1 10^3/ul (0-0.6); ABS Lymphocytes 1.6 10^3/ul (1.0-4.8); ABS Monocytes 0.5 10^3/ul (0-0.8); ABS Neutrophils 3.2 10^3/ul (1.5-7.7); Eosinophil % 2.7 %; Hematocrit 32 % (35-47); Lymphocyte % 28.4 %; Mean Corpuscular HGB Conc 34 g/dL (31-36); Mean Corpuscular Hemoglobin 33 pg (27-31); Mean Corpuscular Volume 96 fL (80-97); Mean Platelet Volume 8.3 fL (7.4-10.4); Platelet Count 197 10^3/uL (150-450); Red Blood Count 3.36 10^6 /uL (3.70-4.87); Red Cell Distribution Width 14 % (10-15); White Blood Count 5.5 10^3/uL (3.5-10.8)
[2020-12-31 13:13] LABS: Activated Partial Thrombo Time 28.8 seconds (26.0-38.0); INR 1.11 (0.86-1.15)
[2020-12-31 13:14] LABS: Calcium 10.1 mg/dL (8.6-10.3); Potassium 4.4 mmol/L (3.5-5.0)
[2020-12-31 15:49] LABS: Rapid COVID-19 Molecular Undetected (Undetected)
[2020-12-31] MEDS: Heparin 5000 UNITS/ML 1 mL VIAL SUBCUT SCH ×2 (16:03→21:11)
[2020-12-31] MEDS: Magnesium Hydroxide LIQ 30 ML UDC PO SCH (21:11)
[2020-12-31] MEDS: Lidocaine Patch REMOVE PATCH PATCH OFF SCH (21:18)
[2021-01-01] MEDS: Lactated Ringers 1000 ml BAG 1,000 ML IV SCH (04:47)
[2021-01-01] MEDS ORDERED: Buffered Lidocaine 1% SYRIN 1 ml INTRADERM ONE (06:00)
[2021-01-01 06:50] LABS: INR 1.11 (0.86-1.15)
[2021-01-01 07:00] LABS: Calcium 9.8 mg/dL (8.6-10.3); Potassium 4.1 mmol/L (3.5-5.0)
[2021-01-01] MEDS: Vitamin THERAPEUTIC TAB PO SCH (08:35)
[2021-01-01] MEDS: Magnesium Hydroxide LIQ 30 ML UDC PO SCH (08:35)
[2021-01-01] MEDS: Lidocaine PATCH 5% PATCH TRANSDERM SCH (10:01)
[2021-01-01] MEDS ORDERED: Regadenoson 0.4 MG/5 ML SYRINGE ONE (11:53)
[2021-01-01] MEDS ORDERED: ceFAZolin 2 GM in NS PREMIX 2 GM/100 ML BAG IVPB ONE (17:08)
[2021-01-01] MEDS ORDERED: ROPIVACAINE 5 MG/ML 30 ML BTL (0.5%) ONE (17:17)
[2021-01-01] MEDS ORDERED: fentaNYL 100 mcg/2 ml 50 MCG/ML VIAL ONE (17:19)
[2021-01-01] MEDS ORDERED: Midazolam 2 mg/2 ml VIAL 1 mg/ml 2 ml VIAL (2 mg) ONE (17:19)
[2021-01-01] MEDS ORDERED: Propofol 10 MG/ML 20 ML BTL ONE (17:56)
[2021-01-01] MEDS ORDERED: Ondansetron 4 mg VIAL 2 MG/ML 2 ml VIAL ONE (17:56)
[2021-01-01] MEDS ORDERED: Lidocaine 2% PF 5 ML VIAL ONE (17:56)
[2021-01-01] MEDS ORDERED: Rocuronium 50 mg VIAL 10 mg/ml 5 ml VIAL (50 mg) ONE (17:56)
[2021-01-01] MEDS ORDERED: Dexamethasone IV 4 MG/ML VIAL 1 ml VIAL ONE (17:56)
[2021-01-01] MEDS ORDERED: Vancomycin 1,000 MG VIAL ONE (18:13)
[2021-01-01] MEDS ORDERED: Phenylephrine 40 mcg/mL 10mL (400mcg) SYRINGE ONE (19:11)
[2021-01-01] MEDS ORDERED: Phenylephrine IV 10 MG/ML 1 ml VIAL ONE (20:25)
[2021-01-01] MEDS ORDERED: Albumin Human 5% 12.5 GM/250 ML BTL IV ONE (21:00)
[2021-01-01] MEDS ORDERED: Acetaminophen IV 1 GM/100ML 100 ML IV ONE (21:22)
[2021-01-02] MEDS: Magnesium Hydroxide LIQ 30 ML UDC PO SCH ×5 (00:42→21:46)
[2021-01-02] MEDS: Lidocaine Patch REMOVE PATCH PATCH OFF SCH ×2 (01:10→22:33)
[2021-01-02] MEDS: ceFAZolin 1 GM ADVAN 1 GM in NS 0.9% 50 ML 50 ML IVPB SCH ×3 (04:36→20:05)
[2021-01-02] MEDS: Lactated Ringers 1000 ml BAG 1,000 ML IV SCH (04:42)
[2021-01-02 08:00] LABS: ABS Monocytes 0.5 10^3/ul (0-0.8); ABS Neutrophils 5.6 10^3/ul (1.5-7.7); Eosinophil % 0.1 %; Hematocrit 28 % (35-47); Hemoglobin 9.3 g/dL (12.0-16.0); Lymphocyte % 13.9 %; Mean Corpuscular HGB Conc 34 g/dL (31-36); Mean Corpuscular Hemoglobin 33 pg (27-31); Mean Corpuscular Volume 97 fL (80-97); Mean Platelet Volume 8.5 fL (7.4-10.4); Platelet Count 170 10^3/uL (150-450); Red Blood Count 2.85 10^6 /uL (3.70-4.87); Red Cell Distribution Width 14 % (10-15); White Blood Count 7.1 10^3/uL (3.5-10.8)
[2021-01-02 08:16] LABS: INR 1.12 (0.86-1.15)
[2021-01-02 08:18] LABS: Calcium 9.4 mg/dL (8.6-10.3); Potassium 4.2 mmol/L (3.5-5.0)
[2021-01-02] MEDS: Lidocaine PATCH 5% PATCH TRANSDERM SCH (09:42)
[2021-01-02] MEDS: Vitamin THERAPEUTIC TAB PO SCH (09:44)
[2021-01-02] MEDS: HYDROcodone/ACETAMIN 5/325 mg TAB PO PRN ×2 (12:16→23:50)
[2021-01-03 07:12] LABS: ABS Monocytes 0.6 10^3/ul (0-0.8); Eosinophil % 0.5 %; Hematocrit 24 % (35-47); Hemoglobin 8.1 g/dL (12.0-16.0); Lymphocyte % 29.1 %; Mean Corpuscular HGB Conc 34 g/dL (31-36); Mean Corpuscular Hemoglobin 33 pg (27-31); Mean Corpuscular Volume 98 fL (80-97); Mean Platelet Volume 8.8 fL (7.4-10.4); Platelet Count 159 10^3/uL (150-450); Red Blood Count 2.47 10^6 /uL (3.70-4.87); Red Cell Distribution Width 14 % (10-15); White Blood Count 6.7 10^3/uL (3.5-10.8)
[2021-01-03 07:19] LABS: INR 1.13 (0.86-1.15)
[2021-01-03 07:31] LABS: Calcium 9.4 mg/dL (8.6-10.3); Potassium 3.9 mmol/L (3.5-5.0)
[2021-01-03] MEDS: Lidocaine PATCH 5% PATCH TRANSDERM SCH (09:46)
[2021-01-03] MEDS: Vitamin THERAPEUTIC TAB PO SCH (09:47)
[2021-01-03] MEDS: Magnesium Hydroxide LIQ 30 ML UDC PO SCH ×2 (09:48→20:45)
[2021-01-03] MEDS ORDERED: NS 0.9% 500 ml BAG 500 ML IV ONE (10:01)
[2021-01-03] MEDS: Lidocaine Patch REMOVE PATCH PATCH OFF SCH (20:49)
[2021-01-04] MEDS: HYDROcodone/ACETAMIN 5/325 mg TAB PO PRN ×2 (04:28→12:04)
[2021-01-04 05:57] LABS: ABS Eosinophils 0.2 10^3/ul (0-0.6); ABS Lymphocytes 2.1 10^3/ul (1.0-4.8); ABS Monocytes 0.6 10^3/ul (0-0.8); ABS Neutrophils 2.7 10^3/ul (1.5-7.7); Hematocrit 23 % (35-47); Hemoglobin 7.6 g/dL (12.0-16.0); Lymphocyte % 37.4 %; Mean Corpuscular HGB Conc 34 g/dL (31-36); Mean Corpuscular Hemoglobin 33 pg (27-31); Mean Corpuscular Volume 99 fL (80-97); Mean Platelet Volume 8.6 fL (7.4-10.4); Platelet Count 151 10^3/uL (150-450); Red Blood Count 2.29 10^6 /uL (3.70-4.87); Red Cell Distribution Width 14 % (10-15); White Blood Count 5.5 10^3/uL (3.5-10.8)
[2021-01-04 06:10] LABS: Calcium 9.2 mg/dL (8.6-10.3); Potassium 4.2 mmol/L (3.5-5.0)
[2021-01-04 06:14] LABS: INR 1.1 (0.86-1.15)
[2021-01-04] MEDS: Lidocaine PATCH 5% PATCH TRANSDERM SCH (08:10)
[2021-01-04] MEDS: Magnesium Hydroxide LIQ 30 ML UDC PO SCH ×2 (08:11→20:18)
[2021-01-04] MEDS: Vitamin THERAPEUTIC TAB PO SCH (08:11)
[2021-01-04] MEDS: Lidocaine Patch REMOVE PATCH PATCH OFF SCH (20:18)
[2021-01-04 23:16] LABS: Hematocrit 27 % (35-47); Hemoglobin 8.9 g/dL (12.0-16.0)
[2021-01-05] MEDS: HYDROcodone/ACETAMIN 5/325 mg TAB PO PRN ×2 (03:20→16:17)
[2021-01-05 06:55] LABS: ABS Eosinophils 0.2 10^3/ul (0-0.6); ABS Lymphocytes 1.8 10^3/ul (1.0-4.8); ABS Monocytes 0.4 10^3/ul (0-0.8); ABS Neutrophils 2.8 10^3/ul (1.5-7.7); Eosinophil % 3.7 %; Hematocrit 25 % (35-47); Hemoglobin 8.4 g/dL (12.0-16.0); Mean Corpuscular HGB Conc 34 g/dL (31-36); Mean Corpuscular Hemoglobin 33 pg (27-31); Mean Corpuscular Volume 97 fL (80-97); Platelet Count 165 10^3/uL (150-450); Red Blood Count 2.53 10^6 /uL (3.70-4.87); Red Cell Distribution Width 14 % (10-15); White Blood Count 5.3 10^3/uL (3.5-10.8)
[2021-01-05 06:58] LABS: INR 1.09 (0.86-1.15)
[2021-01-05 07:10] LABS: Calcium 9.6 mg/dL (8.6-10.3); Potassium 4.3 mmol/L (3.5-5.0)
[2021-01-05] MEDS: Vitamin THERAPEUTIC TAB PO SCH (09:00)
[2021-01-05] MEDS: Lidocaine PATCH 5% PATCH TRANSDERM SCH (09:00)
[2021-01-05] MEDS: Magnesium Hydroxide LIQ 30 ML UDC PO SCH ×2 (09:00→21:56)
[2021-01-05] MEDS: Heparin 5000 UNITS/ML 1 mL VIAL SUBCUT SCH ×2 (14:12→21:32)
[2021-01-05 15:48] LABS: Hematocrit 27 % (35-47); Hemoglobin 8.9 g/dL (12.0-16.0)
[2021-01-05] MEDS: Lidocaine Patch REMOVE PATCH PATCH OFF SCH (21:57)
[2021-01-06] MEDS: Heparin 5000 UNITS/ML 1 mL VIAL SUBCUT SCH (05:16)
[2021-01-06 06:51] LABS: ABS Eosinophils 0.3 10^3/ul (0-0.6); ABS Lymphocytes 2.2 10^3/ul (1.0-4.8); ABS Monocytes 0.4 10^3/ul (0-0.8); ABS Neutrophils 3.3 10^3/ul (1.5-7.7); Eosinophil % 4.3 %; Hematocrit 28 % (35-47); Hemoglobin 9.4 g/dL (12.0-16.0); Mean Corpuscular HGB Conc 34 g/dL (31-36); Mean Corpuscular Hemoglobin 33 pg (27-31); Mean Corpuscular Volume 97 fL (80-97); Mean Platelet Volume 8.7 fL (7.4-10.4); Platelet Count 206 10^3/uL (150-450); Red Blood Count 2.83 10^6 /uL (3.70-4.87); Red Cell Distribution Width 14 % (10-15); White Blood Count 6.1 10^3/uL (3.5-10.8)
[2021-01-06 06:58] LABS: INR 1.05 (0.86-1.15)
[2021-01-06 07:06] LABS: Potassium 4.2 mmol/L (3.5-5.0)
[2021-01-06 09:56] LABS: Rapid COVID-19 Molecular Undetected (Undetected)
[2021-01-06] MEDS: Lidocaine PATCH 5% PATCH TRANSDERM SCH (11:09)
[2021-01-06] MEDS: Magnesium Hydroxide LIQ 30 ML UDC PO SCH (11:10)
[2021-01-06] MEDS: Vitamin THERAPEUTIC TAB PO SCH (11:11)
[2021-01-06 11:29] VITALS: BP 142/44
== END 2021-01-06 11:40 | DRG 483 ==
LOC: SSU 08:10
PROVIDERS: ADMIT Orthopaedic Surgery; ATTEND Orthopaedic Surgery